=== PATIENT | female | born 1970 | race Caucasian/White ===

== ENCOUNTER 2016-07-16 21:24 | Observation (INO) | payer OTHER ==
[2016-07-16] MEDS ORDERED: methylPREDNISolone SOD SUCCI 125 MG/2 ML VIAL IV STA (22:04)
[2016-07-16] MEDS ORDERED: SODIUM CHLORIDE 0.9% 500 ML IV STA (22:04)
[2016-07-16] MEDS ORDERED: ALBUTEROL NEBULIZED 2.5 MG/3 ML INHALATION STA (22:04)
--- NOTE | 2016-07-16 22:28 | XR ---
EXAMINATION TYPE: XR chest 2V DATE OF EXAM: 07/16/2016 10:22 PM COMPARISON: 02/14/2016 HISTORY: Difficulty in breathing cough COPD asthma. TECHNIQUE: Frontal and lateral views of the chest are obtained. FINDINGS: Interstitial prominence is again noted without significant interval change with chronic lung changes. No definite focal pneumonia is noted. Prominent bronchovascular markings are noted bilaterally. Patricia bronchial cuffing is noted with possible chronic bronchitis changes. There is shift of mediastinum to wards left of chronic nature. There is mild cardiomegaly. The osseous structures are intact. IMPRESSION: 1. No active lung infiltrates. 2. Chronic lung changes. 3. No significant interval change. 4. Possible chronic bronchitis.
--- NOTE | 2016-07-16 22:28 | ED ---
SOB HPI <Seymour Ambriz - Last Filed: 07/17/16 00:04> - General Source: patient, RN notes reviewed Mode of arrival: ambulatory Limitations: no limitations <Raina Salgado - Last Filed: 07/17/16 00:10> - General Chief Complaint: Shortness of Breath Stated Complaint: BRADY Time Seen by Provider: 07/16/16 21:56 - History of Present Illness Initial Comments: 46-year-old female presents to the emergency department with a chief complaint of shortness of breath. Patient has history of COPD. Patient states she did back to back breathing treatments at home with no improvement. Patient states she feels wheezy she feels tight. Patient denies any fever chills with this. Patient states she has had some phlegm production. Patient denies any nausea vomiting or chest discomfort. Patient states that her COPD is acting up and that is ice here today.Patient denies any recent fever, chills, chest pain, back pain, abdominal pain, nausea vomiting, numbness or tingling, dysuria or hematuria, constipation or diarrhea, headaches or visual changes, or any other current symptoms. (Raina Salgado) - Related Data Home Medications Medication Instructions Recorded Confirmed ALPRAZolam [Xanax] 0.25 mg PO TID PRN 03/24/15 07/16/16 Cholecalciferol [Vitamin D3] 5,000 unit PO DAILY 03/24/15 07/16/16 Diltiazem HCl [Diltiazem ER] 120 mg PO DAILY 03/24/15 07/16/16 Fluticasone/Salmeterol [Advair 1 puff INHALATION RT-BID 03/24/15 07/16/16 500-50 Diskus] PARoxetine HCL [Paxil Cr] 25 mg PO BID 03/24/15 07/16/16 buPROPion SR [Wellbutrin SR] 150 mg PO BID 03/24/15 07/16/16 metFORMIN HCL [Glucophage Xr] 500 mg PO AC-[id number] 03/24/15 07/16/16 Albuterol Inhaler [Ventolin Hfa 1 - 2 puff INHALATION RT-Q6H PRN 08/14/15 Inhaler] Hydrocodone/Acetaminophen [[place] 1 tab PO Q6H PRN 02/14/16 07/16/16 10-325] Naproxen [Naprosyn] 500 mg PO Q12HR PRN 02/14/16 07/16/16 Theophylline Anhydrous [Segun-24] 200 mg PO DAILY 02/14/16 07/16/16 Topiramate [Topiramate] 25 mg PO BID-W/MEALS 02/14/16 07/16/16 Acetaminophen [Tylenol] 1,000 mg PO Q4-6H PRN 07/16/16 07/16/16 Albuterol Nebulized [Ventolin 2.5 mg INHALATION RT-TID PRN 07/16/16 07/16/16 Nebulized] Allergies Allergy/AdvReac Type Severity Reaction Status Date / Time Penicillins Allergy Rash/Hives Verified 07/16/16 22:03 pollen extracts Allergy Dyspnea Verified 07/16/16 22:03 shellfish derived [Shellfish] Allergy Anaphylaxis Verified 07/16/16 22:03 Iodinated Contrast Media - AdvReac Rash/Hives Verified 07/16/16 22:03 Oral and Review of Systems ROS Other: All systems not noted in ROS Statement are negative. <Seymour Ambriz - Last Filed: 07/17/16 00:04> ROS Other: All systems not noted in ROS Statement are negative. <Raina Salgado - Last Filed: 07/17/16 00:10> ROS Statement: Those systems with pertinent positive or pertinent negative responses have been documented in the HPI. Past Medical History Past Medical History: Asthma, COPD, Diabetes Mellitus, Eye Disorder, Pneumonia, Sleep Apnea/CPAP/BIPAP Additional Past Medical History / Comment(s): 08/14/15 Pt presented to [facility] ER with cough, congestion, increased SOB and chest tightness. Pt used inhaler with some relief. Pt is being admitted with clinical impression of obstructive chronic bronchitis with exacerbation. Other HX: NIDDM thype II, glaucoma bilaterally, tachycardia, AKIRA with CPAP, bronchitis, has O2 at home which she uses prn at 2L/NC . History of Any Multi-Drug Resistant Organisms: None Reported Past Surgical History: Section, Tubal Ligation Additional Past Surgical History / Comment(s): cyst removal under right breast, x 2. Past Anesthesia/Blood Transfusion Reactions: No Reported Reaction Past Psychological History: Anxiety, Depression Additional Psychological History / Comment(s): Pt resides with her spouse and a 16 and 18 yr old child. She also has a 10 month old grandson that lives with them. She is normally independent. She uses no assistive device. She drives. She has O2 which she uses prn and a nebulizer and glucose monitor at home. Smoking Status: Former smoker Past Alcohol Use History: None Reported Additional Past Alcohol Use History / Comment(s): Pt states she started smoking in 1986 and quit 5 months ago. Past Drug Use History: None Reported - Past Family History Mother History Unknown: Yes Family Medical History: COPD Additional Family Medical History / Comment(s): breast cancer. Mother is alive and 74 yrs old. Father History Unknown: Yes Family Medical History: COPD, Myocardial Infarction (MS), Vascular Disorder Additional Family Medical History / Comment(s): Father at age 64yrs. <Raina Salgado - Last Filed: 07/17/16 00:10> General Exam <Seymour Ambriz - Last Filed: 07/17/16 00:04> Limitations: no limitations <Raina Salgado - Last Filed: 07/17/16 00:10> - General Exam Comments Initial Comments: General: The patient is awake and alert, in no distress, and does not appear acutely ill. Eye: Pupils are equal, round and reactive to light, extra-ocular movements are intact; there is normal conjunctiva bilaterally. No signs of icterus. Ears, nose, mouth and throat: There are moist mucous membranes. Neck: The neck is supple, there is no tenderness. Cardiovascular: There is a regular rate and rhythm. No murmur, rub or gallop is appreciated. Respiratory: Lungs are clear to auscultation, respirations are non-labored, breath sounds are equal. Diminished throughout, wheezing throughout, stridor, rales, or rhonchi. Gastrointestinal: Soft, non-distended, non-tender abdomen without masses or organomegaly noted. There is no rebound or guarding present. No CVA tenderness. Bowel sounds are unremarkable. Back: There is no tenderness to palpation in the midline. There is no obvious deformity. No rashes noted. Musculoskeletal: Normal ROM, no tenderness, There is no pedal edema. There is no calf tenderness or swelling. Sensation intact. Pulses equal bilaterally 2+. Neurological: CN II-XII intact, There are no obvious motor or sensory deficits. Coordination appears grossly intact. Speech is normal. Skin: Skin is warm and dry and no rashes or lesions are noted. Psychiatric: Cooperative, appropriate mood & affect, normal judgment. (Raina Salgado) Medical Decision Making - Lab Data Result diagrams: 07/16/16 22:40 07/16/16 22:40 <Seymour Ambriz - Last Filed: 07/17/16 00:04> - Lab Data Result diagrams: 07/16/16 22:40 07/16/16 22:40 - Radiology Data Radiology results: report reviewed, image reviewed <Raina Salgado - Last Filed: 07/17/16 00:10> - Medical Decision Making Patient reevaluated by myself, Dr. Ambriz. Patient has continued wheezing. Case was discussed with Dr. henson, who will admit for Dr. steele. Patient has previously seen Dr. Olmstead (Seymour Ambriz) 46-year-old female presents emergency Department chief complaint of COPD exacerbation. Even after continuous updraft the patient does continue to have wheezing on exam and continues to be 93 on room air. At this time the patient states she is not feeling any better. We will admit the patient for COPD exacerbation we will start antibiotics and steroids for the patient. We will also consult Dr. Wallace. Patient and agree with the plan all questions were answered. The patient. (Raina Salgado) - Lab Data Lab Results 07/16/16 07/16/16 07/16/16 Range/Units 22:40 22:40 22:40 WBC 16.4 H (3.8-10.6) k/uL RBC 4.63 (3.80-5.40) m/uL Hgb 14.0 (11.4-16.0) gm/dL Hct 42.0 (34.0-46.0) % MCV 90.8 (80.0-100.0) fL MCH 30.2 (25.0-35.0) pg MCHC 33.3 (31.0-37.0) g/dL RDW 13.7 (11.5-15.5) % Plt Count 308 (150-450) k/uL Neutrophils % (Manual) 70.0 % Lymphocytes % (Manual) 21.5 % Monocytes % (Manual) 7.0 % Myelocytes % 1.5 % Neutrophils # (Manual) 11.5 H (1.3-7.7) k/uL Lymphocytes # (Manual) 3.5 (1.0-4.8) k/uL Monocytes # (Manual) 1.1 H (0-1.0) k/uL Nucleated RBCs 0 (0-0) /100 WBC Manual Slide Review Performed PT (9.0-12.0) sec INR (<1.1) APTT (22.0-30.0) sec D-Dimer (<0.60) mg/L FEU Sodium 141 (137-145) mmol/L Potassium 3.8 (3.5-5.1) mmol/L Chloride 105 (98-107) mmol/L Carbon Dioxide 23 (22-30) mmol/L Anion Gap 13 mmol/L BUN 11 (7-17) mg/dL Creatinine 0.79 (0.52-1.04) mg/dL Est GFR (MDRD) Af Amer >60 (>60 ml/min/1.73 sqM) Est GFR (MDRD) Non-Af >60 (>60 ml/min/1.73 sqM) Glucose 87 (74-99) mg/dL Calcium 9.9 (8.4-10.2) mg/dL Total Bilirubin 0.5 (0.2-1.3) mg/dL AST 23 (14-36) U/L ALT 52 (9-52) U/L Alkaline Phosphatase 96 (38-126) U/L Total Creatine Kinase 36 (30-135) U/L CK-MB (CK-2) 0.5 (0.0-2.4) ng/mL CK-MB (CK-2) Rel Index 1.4 Troponin I <0.012 (0.000-0.034) ng/mL Total Protein 7.1 (6.3-8.2) g/dL Albumin 4.0 (3.5-5.0) g/dL 07/16/16 Range/Units 22:40 WBC (3.8-10.6) k/uL RBC (3.80-5.40) m/uL Hgb (11.4-16.0) gm/dL Hct (34.0-46.0) % MCV (80.0-100.0) fL MCH (25.0-35.0) pg MCHC (31.0-37.0) g/dL RDW (11.5-15.5) % Plt Count (150-450) k/uL Neutrophils % (Manual) % Lymphocytes % (Manual) % Monocytes % (Manual) % Myelocytes % % Neutrophils # (Manual) (1.3-7.7) k/uL Lymphocytes # (Manual) (1.0-4.8) k/uL Monocytes # (Manual) (0-1.0) k/uL Nucleated RBCs (0-0) /100 WBC Manual Slide Review PT 9.6 (9.0-12.0) sec INR 0.9 (<1.1) APTT 23.0 (22.0-30.0) sec D-Dimer 0.25 (<0.60) mg/L FEU Sodium (137-145) mmol/L Potassium (3.5-5.1) mmol/L Chloride (98-107) mmol/L Carbon Dioxide (22-30) mmol/L Anion Gap mmol/L BUN (7-17) mg/dL Creatinine (0.52-1.04) mg/dL Est GFR (MDRD) Af Amer (>60 ml/min/1.73 sqM) Est GFR (MDRD) Non-Af (>60 ml/min/1.73 sqM) Glucose (74-99) mg/dL Calcium (8.4-10.2) mg/dL Total Bilirubin (0.2-1.3) mg/dL AST (14-36) U/L ALT (9-52) U/L Alkaline Phosphatase (38-126) U/L Total Creatine Kinase (30-135) U/L CK-MB (CK-2) (0.0-2.4) ng/mL CK-MB (CK-2) Rel Index Troponin I (0.000-0.034) ng/mL Total Protein (6.3-8.2) g/dL Albumin (3.5-5.0) g/dL Disposition <Seymour Ambriz - Last Filed: 07/17/16 00:04> Time of Disposition: 00:10 Decision Date: 07/17/16 Decision Time: 00:10 <Raina Salgado - Last Filed: 07/17/16 00:10> Clinical Impression: Acute exacerbation of chronic obstructive airways disease Disposition: ADMITTED IP TO THIS HOSP Condition: Stable
[2016-07-16 23:00] LABS: CH 30.6; CHCM 33.9; HDW 2.85; MCH 30.2 pg (25.0-35.0); MCHC 33.3 g/dL (31.0-37.0); MCV 90.8 fL (80.0-100.0); Mean Platelet Volume 7.9; RBC 4.63 m/uL (3.80-5.40); RDW 13.7 % (11.5-15.5); WBC 16.4 k/uL (3.8-10.6); WBC (Perox) 16.38
[2016-07-16 23:09] LABS: ALT 52 U/L (9-52); AST 23 U/L (14-36); Alkaline Phosphatase 96 U/L (38-126); Anion Gap 13 mmol/L; Blood Urea Nitrogen 11 mg/dL (7-17); Calcium 9.9 mg/dL (8.4-10.2); Carbon Dioxide 23 mmol/L (22-30); Chloride 105 mmol/L (98-107); Glucose 87 mg/dL (74-99); Non-African American GFR(MDRD) >60 (>60 ml/min/1.73 sqM); Potassium 3.8 mmol/L (3.5-5.1); Sodium 141 mmol/L (137-145); Total Bilirubin 0.5 mg/dL (0.2-1.3); Total Protein 7.1 g/dL (6.3-8.2)
[2016-07-16 23:13] LABS: INR 0.9 (<1.1); Prothrombin Time 9.6 sec (9.0-12.0)
[2016-07-16 23:26] LABS: Creatine Kinase 36 U/L (30-135)
[2016-07-16 23:32] LABS: Add Differential Manual Differential
[2016-07-16 23:35] LABS: Manual Review Performed; Myelocytes % 1.5 %; Nucleated Red Blood Cells 0 /100 WBC (0-0); Total Cells Counted 200
[2016-07-16 23:39] LABS: Creatine Kinase MB 0.5 ng/mL (0.0-2.4); Troponin I <0.012 ng/mL (0.000-0.034)
[2016-07-17] MEDS: methylPREDNISolone SOD SUCCI 125 MG/2 ML VIAL IV SCH ×4 (05:33→23:05)
[2016-07-17 06:51] LABS: Glucose,Whole Blood 223 mg/dL (75-99)
[2016-07-17] MEDS: IPRATROPIUM-ALBUTEROL 3 ML NEB INHALATION PRN (08:42)
[2016-07-17] MEDS ORDERED: HYDROcodone/APAP 10-325MG 1 EACH TAB PO PRN (09:09)
[2016-07-17] MEDS ORDERED: NAPROXEN 250 MG TAB PO PRN (09:09)
[2016-07-17] MEDS ORDERED: ALPRAZolam 0.25 MG TAB PO PRN (09:09)
--- NOTE | 2016-07-17 10:31 | HP ---
DATE OF ADMISSION: 07/17/2016 PRESENTING COMPLAINT: Short of breath, cough. HISTORY OF PRESENTING COMPLAINT: This is a 46-year-old patient of Dr. Acosta with extensive medical history. Patient's chronic stable medical conditions include Type 2 diabetes mellitus, sleep apnea, uses home oxygen p.r.n. The patient stopped smoking and year and a half ago. The patient presents with one week of progressive cough, phlegm yellow, wheezing short of breath, fever, really stuffy in the nose. Wheezing and feeling really tired. REVIEW OF SYSTEMS: CONSTITUTIONAL: Weak, tired. HEENT: Nasal stuffiness. RESPIRATORY: As above. CARDIOVASCULAR: None. GASTROINTESTINAL: None. GENITOURINARY: None. MUSCULOSKELETAL: None. Dermatological: None. HEMATOLOGICAL: None. LYMPHATIC: None. PSYCHIATRY: Anxiety. NEUROLOGICAL: None. PAST MEDICAL HISTORY: Past medical history of COPD, diabetes mellitus type 2, anxiety, and depression, obstructive sleep apnea. PAST SURGICAL HISTORY: 1. . 2. Tubal ligation. 3. Cyst removed from under the right breast. SOCIAL HISTORY: . She uses oxygen on p.r.n. basis. The patient smoked about 30 years 1/2 pack a day and quit close to a year ago. Family history of breast cancer and COPD. Home medications: 1. Glucophage XL 1000 mg p.o. b.i.d. 2. Segun-24 100 mg b.i.d. 3. Ventolin 2.5 t.i.d. p.r.n. 4. Tylenol. 5. Wellbutrin SR 100 mg p.o. b.i.d. 6. Topamax 25 mg p.o. b.i.d. 7. Paxil 25 mg b.i.d. 8. Naproxen 500 mg p.o. q12. 9. [place] 10 1 tablets q.6 p.r.n. 10. Advair 5/500, 1 puff b.i.d. 11. Cardizem ER 150 mg daily. 12. Vitamin D3, 5000 units daily. 13. Ventolin HFA 1 to 2 puffs q.6 p.r.n. 14. Xanax 0.5 t.i.d. p.r.n. ALLERGY TO PENICILLIN, POLLEN, SHELLFISH, IV CONTRAST DYE. On examination, vital signs on presentation: Temperature 98.5, pulse 109, respiration 22, blood pressure 114/57, pulse ox 94% on room air. GENERAL APPEARANCE: Well built, BMI of 40, sitting up, short of breath. EYES: Pupils equal. Conjunctivae normal. HEENT: External appearance of nose and ears normal. Oral cavity normal. NECK: JVD unable to assess. Mass not palpable. RESPIRATORY: Effort increased. LUNGS: Diminished breath sounds. Prolonged expiration and some expiratory crackles. CARDIOVASCULAR: First and second sounds normal. No edema. ABDOMEN: Distended, soft. Liver and spleen not palpable. LYMPHATIC: No lymph node palpable in the neck and axilla. PSYCHIATRY: Alert and oriented x3. Mood and affect anxious appearing. NEUROLOGICAL: Pupils equal. Cranial nerves grossly intact. Power and sensation grossly intact. INVESTIGATIONS: White count 16.4, hemoglobin 14, potassium 3.8, chest x-ray shows mediastinal slightly shift to the left. ( ) could be infiltrate right base. ASSESSMENT: 1. Pneumonia, possibly right lower lobe community acquired. 2. Acute chronic obstructive pulmonary disease exacerbation in an ex-smoker from pneumonia. 3. Morbid obesity, body mass index of 40. 4. Anxiety, depression, not otherwise specified. 5. Chronic sleep apnea. The patient does use a CPAP machine. PLAN: Home medications are resumed. Patient was put on Solu-Medrol, nebulized bronchodilator ( ) we will also humidify the oxygen. We will start the patient on ceftriaxone. Care was discussed with the patient.
[2016-07-17] MEDS: DILTIAZEM CD 120 MG CAP.ER.24H PO SCH (10:40)
[2016-07-17] MEDS: metFORMIN 500 MG TAB PO SCH ×2 (10:40→17:39)
[2016-07-17] MEDS: ENOXAPARIN 40 MG/0.4 ML SYRINGE SQ SCH (10:40)
[2016-07-17] MEDS: TOPIRAMATE 25 MG TAB PO SCH ×2 (10:41→17:39)
[2016-07-17] MEDS: buPROPion SR 150 MG TABLET.ER PO SCH ×2 (10:41→21:23)
[2016-07-17] MEDS: PARoxetine 20 MG TAB PO SCH ×2 (10:41→21:23)
[2016-07-17 11:17] LABS: Glucose,Whole Blood 273 mg/dL (75-99)
[2016-07-17] MEDS: LEVOFLOXACIN 500 MG TAB PO SCH (11:19)
[2016-07-17] MEDS: LORATADINE-PSEUDOEPH 5-120 MG 1 EACH TAB.ER.12H PO SCH ×2 (11:19→22:18)
[2016-07-17] MEDS: IPRATROPIUM-ALBUTEROL 3 ML NEB INHALATION SCH ×3 (12:47→19:51)
--- NOTE | 2016-07-17 13:28 | P.CNPUL ---
History of Present Illness Consult date: 07/17/16 Reason for consult: dyspnea, cough, asthma, COPD, hypoxemia Chief complaint: Shortness of breath History of present illness: This is a 46-year-old female well-known to me. I been taking care of her for a number of years with asthma. 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 For that reason the left lung looks smaller than normal on chest x-ray. Anyway for the last couple days or so prior to admission she comes in with complaints of shortness of breath. She also has coughing wheezing and some phlegm production. No fever no chills. No nausea vomiting or diarrhea. She's admitted probably about once a year on the average. Feeling a bit better today. Ready feeling less short of breath. Review of Systems A 12 point review of system is positive for shortness of breath chest tightness wheezing cough and minimal phlegm production. No fever no chills. No nausea vomiting or diarrhea. No chest pain. The rest of the 12 point review of system is unremarkable. Past Medical History Past Medical History: Asthma, COPD, Diabetes Mellitus, Eye Disorder, Pneumonia, Sleep Apnea/CPAP/BIPAP Additional Past Medical History / Comment(s): 08/14/15 Pt presented to [facility] ER with cough, congestion, increased SOB and chest tightness. Pt used inhaler with some relief. Pt is being admitted with clinical impression of obstructive chronic bronchitis with exacerbation. Other HX: NIDDM thype II, glaucoma bilaterally, tachycardia, AKIRA with CPAP, bronchitis, has O2 at home which she uses prn at 2L/NC . History of Any Multi-Drug Resistant Organisms: None Reported Past Surgical History: Section, Tubal Ligation Additional Past Surgical History / Comment(s): cyst removal under right breast, x 2. Past Anesthesia/Blood Transfusion Reactions: No Reported Reaction Past Psychological History: Anxiety, Depression Additional Psychological History / Comment(s): Pt resides with her spouse and a 16 and 18 yr old child. She also has a 10 month old grandson that lives with them. She is normally independent. She uses no assistive device. She drives. She has O2 which she uses prn and a nebulizer and glucose monitor at home. Smoking Status: Former smoker Past Alcohol Use History: None Reported Additional Past Alcohol Use History / Comment(s): Pt states she started smoking in 1986 and quit 5 months ago. Past Drug Use History: None Reported - Past Family History Mother History Unknown: Yes Family Medical History: COPD Additional Family Medical History / Comment(s): breast cancer. Mother is alive and 74 yrs old. Father History Unknown: Yes Family Medical History: COPD, Myocardial Infarction (MS), Vascular Disorder Additional Family Medical History / Comment(s): Father at age 64yrs. Medications and Allergies Home Medications Medication Instructions Recorded Confirmed Type ALPRAZolam [Xanax] 0.25 mg PO TID PRN 03/24/15 07/16/16 History Cholecalciferol [Vitamin D3] 5,000 unit PO DAILY 03/24/15 07/16/16 History Diltiazem HCl [Diltiazem ER] 120 mg PO DAILY 03/24/15 07/16/16 History Fluticasone/Salmeterol [Advair 1 puff INHALATION RT-BID 03/24/15 07/16/16 History 500-50 Diskus] PARoxetine HCL [Paxil Cr] 25 mg PO BID 03/24/15 07/16/16 History buPROPion SR [Wellbutrin SR] 150 mg PO BID 03/24/15 07/16/16 History metFORMIN HCL [Glucophage Xr] 1,000 mg PO BID-W/MEALS 03/24/15 07/17/16 History Albuterol Inhaler [Ventolin Hfa 1 - 2 puff INHALATION RT-Q6H PRN 08/14/15 History Inhaler] Hydrocodone/Acetaminophen [[place] 1 tab PO Q6H PRN 02/14/16 07/16/16 History 10-325] Naproxen [Naprosyn] 500 mg PO Q12HR PRN 02/14/16 07/16/16 History Theophylline Anhydrous [Segun-24] 100 mg PO BID 02/14/16 07/17/16 History Topiramate [Topiramate] 25 mg PO BID-W/MEALS 02/14/16 07/16/16 History Acetaminophen [Tylenol] 1,000 mg PO Q4-6H PRN 07/16/16 07/16/16 History Albuterol Nebulized [Ventolin 2.5 mg INHALATION RT-TID PRN 07/16/16 07/16/16 History Nebulized] Allergies Allergy/AdvReac Type Severity Reaction Status Date / Time Penicillins Allergy Rash/Hives Verified 07/16/16 22:03 pollen extracts Allergy Dyspnea Verified 07/16/16 22:03 shellfish derived [Shellfish] Allergy Anaphylaxis Verified 07/16/16 22:03 Iodinated Contrast Media - AdvReac Rash/Hives Verified 07/16/16 22:03 Oral and Physical Exam Osteopathic Statement: *. No significant issues noted on an osteopathic structural exam other than those noted in the History and Physical/Consult. Vitals: Vital Signs Temp Pulse Pulse Resp BP BP Pulse Ox 07/17/16 13:03 92 07/17/16 12:50 92 07/17/16 08:52 104 H 07/17/16 08:42 100 07/17/16 08:00 16 07/17/16 07:00 97.6 F 88 15 105/69 95 07/17/16 00:45 18 07/17/16 00:41 85 24 134/68 93 L 07/17/16 00:37 97.1 F L 92 18 136/64 90 L Intake and Output 07/16/16 07/17/16 07/17/16 22:59 06:59 14:59 Intake Total 350 180 Balance 350 180 Intake: Oral 350 180 Other: Voiding Method Toilet Toilet # Voids 1 No acute distress, sitting up in bed. No audible wheezing. Oriented 3. HEENT examination is grossly unremarkable. Mucous membranes are moist. No oral lesions. Neck supple. Full range of motion. No adenopathy. Cardio vascular examination reveals regular rhythm rate. S1 and S2 normal. No S3-S4. No murmur. Lungs reveal some expiratory wheezes and rhonchi. Breath sounds are diminished. This prolongation on forced maneuver. Abdomen soft bowel sounds are heard. Next. Extremities are intact. Results - Laboratory Findings CBC and BMP: 07/16/16 22:40 07/16/16 22:40 PT/INR, D-dimer PT 9.6 sec (9.0-12.0) 07/16/16 22:40 INR 0.9 (<1.1) 07/16/16 22:40 D-Dimer 0.25 mg/L FEU (<0.60) 07/16/16 22:40 Abnormal lab findings: Abnormal Labs 07/17/16 07/17/16 06:47 11:15 POC Glucose (mg/dL) 223 H 273 H - Diagnostic Findings Chest x-ray: image reviewed (Chest x-ray labs and medications are all reviewed.) Assessment and Plan (1) Sleep apnea syndrome Status: Acute (2) Absent left pulmonary artery, congenital Status: Acute (3) Acute exacerbation of chronic obstructive airways disease Status: Acute (4) Diabetes Status: Acute Plan: Plan dated 07/17/2016 The patient will be placed on DuoNeb's 4 times a day and when necessary. She should also be on performance and Pulmicort 1 mg twice a day. She should receive Ron Solu-Medrol 60 mg every 6. Her chest x-ray did not show any acute infiltrates that she can get by with oral antibiotics. Additional recommendations suggestions are forthcoming. Labs x-rays and medications are all reviewed. Time with Patient: Greater than 30
[2016-07-17] MEDS ORDERED: BENZONATATE 100 MG CAP PO PRN (13:30)
[2016-07-17 17:06] LABS: Glucose,Whole Blood 111 mg/dL (75-99)
[2016-07-17] MEDS: FORMOTEROL FUMARATE 20 MCG/2 ML NEBU INHALATION SCH (19:51)
[2016-07-17] MEDS: BUDESONIDE 1 MG/2 ML NEBU INHALATION SCH (19:51)
[2016-07-17] MEDS ORDERED: SYMBICORT 160-4.5 MCG INHALER INHALATION SCH (20:00)
[2016-07-17 21:29] LABS: Glucose,Whole Blood 142 mg/dL (75-99)
[2016-07-17] MEDS: INSULIN LISPRO (humaLOG) 300 UNIT/3 ML VIAL SQ SCH (22:20)
[2016-07-17 22:35] LABS: Hemoglobin A1C 5.9 % (4.2-6.1)
[2016-07-18 03:50] LABS: Glucose,Whole Blood 160 mg/dL (75-99)
[2016-07-18] MEDS: methylPREDNISolone SOD SUCCI 125 MG/2 ML VIAL IV SCH ×3 (05:13→18:06)
[2016-07-18 07:09] LABS: Glucose,Whole Blood 156 mg/dL (75-99)
[2016-07-18] MEDS: metFORMIN 500 MG TAB PO SCH ×2 (07:31→18:06)
[2016-07-18] MEDS: DILTIAZEM CD 120 MG CAP.ER.24H PO SCH (07:32)
[2016-07-18] MEDS: TOPIRAMATE 25 MG TAB PO SCH ×2 (07:32→18:05)
[2016-07-18] MEDS: PARoxetine 20 MG TAB PO SCH ×2 (07:32→21:07)
[2016-07-18] MEDS: ENOXAPARIN 40 MG/0.4 ML SYRINGE SQ SCH (07:32)
[2016-07-18] MEDS: LORATADINE-PSEUDOEPH 5-120 MG 1 EACH TAB.ER.12H PO SCH ×2 (07:32→21:07)
[2016-07-18] MEDS: LEVOFLOXACIN 500 MG TAB PO SCH (07:32)
[2016-07-18] MEDS: buPROPion SR 150 MG TABLET.ER PO SCH ×2 (07:32→21:07)
[2016-07-18] MEDS: IPRATROPIUM-ALBUTEROL 3 ML NEB INHALATION PRN (08:05)
[2016-07-18] MEDS: BUDESONIDE 1 MG/2 ML NEBU INHALATION SCH ×2 (08:05→19:26)
[2016-07-18] MEDS: FORMOTEROL FUMARATE 20 MCG/2 ML NEBU INHALATION SCH ×2 (08:05→19:26)
[2016-07-18] MEDS: IPRATROPIUM-ALBUTEROL 3 ML NEB INHALATION SCH ×4 (08:48→19:33)
[2016-07-18] MEDS: INSULIN LISPRO (humaLOG) 300 UNIT/3 ML VIAL SQ SCH ×4 (08:57→21:13)
[2016-07-18 11:35] LABS: Glucose,Whole Blood 137 mg/dL (75-99)
--- NOTE | 2016-07-18 12:41 | P.PN ---
Subjective Progress note dated 07/18/2016 46-year-old female well-known to me. She has a history of chronic bronchial asthma. 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 Still wheezy. So tight. So short of breath. Coughing a bit. Not producing much phlegm. Probably will not be ready for discharge until Wednesday at the earliest but more likely Wednesday. Objective - Vital Signs Vital signs: Vital Signs Temp 98.6 F 07/18/16 07:00 Pulse 96 07/18/16 12:11 Resp 15 07/18/16 08:00 BP 115/70 07/18/16 07:00 Pulse Ox 93 L 07/18/16 08:40 Intake & Output 07/17/16 07/18/16 07/18/16 18:59 06:59 18:59 Intake Total 430 180 Balance 430 180 Intake: Oral 430 180 Other: Voiding Method Toilet Toilet Toilet # Voids 1 - Exam No acute distress, oriented 3. Some mild audible wheezing. HEENT examination is grossly unremarkable. Mucous membranes are moist. No oral lesions. Neck supple. Full range of motion. No adenopathy. Cardiovascular examination reveals regular rhythm rate. S1-S2 normal. Lungs reveal diffuse inspiratory and expiratory rhonchi and wheezes. Breath sounds diminished. There is prolongation. Abdomen soft bowel sounds are heard. Extremities are intact. - Labs CBC & Chem 7: 07/16/16 22:40 07/16/16 22:40 Labs: Abnormal Lab Results - Last 24 Hours (Table) 07/17/16 07/17/16 07/18/16 Range/Units 17:04 21:27 03:37 POC Glucose (mg/dL) 111 H 142 H 160 H (75-99) mg/dL 07/18/16 07/18/16 Range/Units 07:04 11:30 POC Glucose (mg/dL) 156 H 137 H (75-99) mg/dL Assessment and Plan (1) Sleep apnea syndrome Status: Acute (2) Absent left pulmonary artery, congenital Status: Acute (3) Acute exacerbation of chronic obstructive airways disease Status: Acute (4) Diabetes Status: Acute Plan: Plan dated 07/17/2016 The patient will be placed on DuoNeb's 4 times a day and when necessary. She should also be on performance and Pulmicort 1 mg twice a day. She should receive Ron Solu-Medrol 60 mg every 6. Her chest x-ray did not show any acute infiltrates that she can get by with oral antibiotics. Additional recommendations suggestions are forthcoming. Labs x-rays and medications are all reviewed. Plan dated 07/18/2016 The patient should stay on the DuoNeb's 4 times a day and when necessary. She should also stay on the long-acting beta agonist and inhaled corticosteroid twice a day. She should remain on her Solu-Medrol 60 mg every 6 as well as her antibiotics. Possible discharge tomorrow but more likely on Wednesday. Time with Patient: Less than 30
[2016-07-18 17:06] LABS: Glucose,Whole Blood 131 mg/dL (75-99)
[2016-07-18 21:28] LABS: Glucose,Whole Blood 198 mg/dL (75-99)
[2016-07-19] MEDS: methylPREDNISolone SOD SUCCI 125 MG/2 ML VIAL IV SCH ×4 (00:21→17:38)
[2016-07-19 07:27] LABS: Glucose,Whole Blood 161 mg/dL (75-99)
[2016-07-19] MEDS: BUDESONIDE 1 MG/2 ML NEBU INHALATION SCH ×2 (07:30→19:40)
[2016-07-19] MEDS: IPRATROPIUM-ALBUTEROL 3 ML NEB INHALATION SCH ×4 (07:30→19:39)
[2016-07-19] MEDS: FORMOTEROL FUMARATE 20 MCG/2 ML NEBU INHALATION SCH ×2 (07:30→19:37)
[2016-07-19 07:46] LABS: Anion Gap 17 mmol/L; Blood Urea Nitrogen 18 mg/dL (7-17); Calcium 9.8 mg/dL (8.4-10.2); Carbon Dioxide 23 mmol/L (22-30); Chloride 105 mmol/L (98-107); Glucose 164 mg/dL (74-99); Non-African American GFR(MDRD) >60 (>60 ml/min/1.73 sqM); Sodium 145 mmol/L (137-145)
[2016-07-19] MEDS: TOPIRAMATE 25 MG TAB PO SCH ×2 (07:46→17:38)
[2016-07-19] MEDS: buPROPion SR 150 MG TABLET.ER PO SCH ×2 (07:46→20:22)
[2016-07-19] MEDS: LORATADINE-PSEUDOEPH 5-120 MG 1 EACH TAB.ER.12H PO SCH ×2 (07:46→20:22)
[2016-07-19] MEDS: metFORMIN 500 MG TAB PO SCH ×2 (07:46→17:38)
[2016-07-19] MEDS: DILTIAZEM CD 120 MG CAP.ER.24H PO SCH (07:46)
[2016-07-19] MEDS: PARoxetine 20 MG TAB PO SCH ×2 (07:46→20:22)
[2016-07-19] MEDS: ENOXAPARIN 40 MG/0.4 ML SYRINGE SQ SCH (07:46)
[2016-07-19] MEDS: INSULIN LISPRO (humaLOG) 300 UNIT/3 ML VIAL SQ SCH ×4 (07:47→20:36)
[2016-07-19] MEDS: LEVOFLOXACIN 500 MG TAB PO SCH (07:47)
--- NOTE | 2016-07-19 07:47 | PN ---
DATE OF SERVICE: 07/18/2016 PRESENTING COMPLAINT: Shortness of breath, wheezing. INTERVAL HISTORY: This patient presented with COPD exacerbation. Still wheezing and cough. Tired appearing. Did tolerate some diet. Review of systems done for constitutional, cardiovascular, GI, pulmonary; relevant findings as above. Current medications are reviewed and include nebulized bronchodilators and IV steroids. On examination, temperature 98.4, pulse 79, respiratory rate 16, blood pressure 110/54, pulse ox 95% on 2 liters. GENERAL APPEARANCE: Sitting up, short of breath. EYES: Pupils equal. Conjunctivae normal. NECK: JVD not raised. Mass not palpable. Respiratory effort increased. Lungs diminished breath sounds. Prolonged expiration and wheezing. CARDIOVASCULAR: First and second sounds normal. No edema. ABDOMEN: Soft, nontender. Liver and spleen not palpable. Psychiatric alert and oriented x3. Mood and affect normal. INVESTIGATIONS: Accu-Cheks are noted. ASSESSMENT: 1. Acute to severe chronic obstructive pulmonary disease exacerbation in an ex-smoker, slow to respond. 2. Pneumonia right lower lobe, community acquired suspect gram-negative organism. 3. Moderate obesity, body mass index of 40. 4. Anxiety, depression, not otherwise specified. 5. Sleep apnea, does use CPAP machine. PLAN: Continue current medication and treatment plan. Will follow.
[2016-07-19 12:14] LABS: Glucose,Whole Blood 188 mg/dL (75-99)
--- NOTE | 2016-07-19 13:38 | P.PN ---
Subjective Progress note dated 07/18/2016 46-year-old female well-known to me. She has a history of chronic bronchial asthma. 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 Still wheezy. So tight. So short of breath. Coughing a bit. Not producing much phlegm. Probably will not be ready for discharge until Wednesday at the earliest but more likely Wednesday. Progress note dated 07/19/2016 46-year-old female with history of asthma. She also has hypoplastic left lung syndrome as well as absence of the left pulmonary artery. She still very wheezy and tight. Still short of breath. Lots of chest congestion. I suspect she probably will be ready due for discharge until Wednesday or Wednesday. I was hoping to get her out of the hospital sooner but she's not much improved. She is on all the usual medications. The patient is doing better but not anywhere working usually she needs about 5-7 days in the hospital when she has a flareup to this degree. Objective - Vital Signs Vital signs: Vital Signs Temp 97.8 F 07/19/16 07:00 Pulse 96 07/19/16 11:14 Resp 15 07/19/16 08:00 BP 120/72 07/19/16 07:00 Pulse Ox 95 07/19/16 07:36 Intake & Output 07/18/16 07/19/16 07/19/16 18:59 06:59 18:59 Intake Total 740 Balance 740 Intake: Oral 740 Other: Voiding Method Toilet Toilet # Voids 3 2 - Exam No acute distress, oriented 3. Some mild audible wheezing. HEENT examination is grossly unremarkable. Mucous membranes are moist. No oral lesions. Neck supple. Full range of motion. No adenopathy. Cardiovascular examination reveals regular rhythm rate. S1-S2 normal. Lungs reveal diffuse inspiratory and expiratory rhonchi and wheezes. Breath sounds diminished. There is prolongation. Abdomen soft bowel sounds are heard. Extremities are intact. - Labs CBC & Chem 7: 07/16/16 22:40 07/19/16 06:58 Labs: Abnormal Lab Results - Last 24 Hours (Table) 07/18/16 07/18/16 07/19/16 Range/Units 16:44 21:09 06:46 BUN (7-17) mg/dL Glucose (74-99) mg/dL POC Glucose (mg/dL) 131 H 198 H 161 H (75-99) mg/dL 07/19/16 07/19/16 Range/Units 06:58 11:53 BUN 18 H (7-17) mg/dL Glucose 164 H (74-99) mg/dL POC Glucose (mg/dL) 188 H (75-99) mg/dL Assessment and Plan (1) Sleep apnea syndrome Status: Acute (2) Absent left pulmonary artery, congenital Status: Acute (3) Acute exacerbation of chronic obstructive airways disease Status: Acute (4) Diabetes Status: Acute Plan: Plan dated 07/17/2016 The patient will be placed on DuoNeb's 4 times a day and when necessary. She should also be on performance and Pulmicort 1 mg twice a day. She should receive Ron Solu-Medrol 60 mg every 6. Her chest x-ray did not show any acute infiltrates that she can get by with oral antibiotics. Additional recommendations suggestions are forthcoming. Labs x-rays and medications are all reviewed. Plan dated 07/18/2016 The patient should stay on the DuoNeb's 4 times a day and when necessary. She should also stay on the long-acting beta agonist and inhaled corticosteroid twice a day. She should remain on her Solu-Medrol 60 mg every 6 as well as her antibiotics. Possible discharge tomorrow but more likely on Wednesday. Plan dated 07/19/2016 The patient's currently on DuoNeb 4 times a day and when necessary. Also on Pulmicort 1 mg and performance twice a day. Still receiving Solu-Medrol. Still on an antibiotic. We'll continue to follow. Prognosis is guarded. Probable discharge in 24-48 hours or so. Time with Patient: Less than 30
[2016-07-19 16:57] LABS: Glucose,Whole Blood 143 mg/dL (75-99)
[2016-07-19 20:47] LABS: Glucose,Whole Blood 242 mg/dL (75-99)
[2016-07-19] MEDS: IPRATROPIUM 0.5 MG/2.5 ML NEBU INHALATION SCH ×2 (23:33→23:37)
[2016-07-19] MEDS: ALBUTEROL NEB (CONC) 2.5 MG/0.5 ML INHALATION SCH (23:39)
[2016-07-20] MEDS: methylPREDNISolone SOD SUCCI 125 MG/2 ML VIAL IV SCH ×4 (01:36→18:37)
[2016-07-20] MEDS: ALBUTEROL NEB (CONC) 2.5 MG/0.5 ML INHALATION SCH ×5 (03:54→20:10)
[2016-07-20] MEDS: IPRATROPIUM 0.5 MG/2.5 ML NEBU INHALATION SCH ×5 (03:54→20:10)
[2016-07-20 07:15] LABS: Glucose,Whole Blood 170 mg/dL (75-99)
[2016-07-20] MEDS: INSULIN LISPRO (humaLOG) 300 UNIT/3 ML VIAL SQ SCH ×4 (07:56→20:42)
[2016-07-20] MEDS: metFORMIN 500 MG TAB PO SCH ×2 (07:58→18:33)
[2016-07-20] MEDS: buPROPion SR 150 MG TABLET.ER PO SCH ×2 (07:59→20:34)
[2016-07-20] MEDS: TOPIRAMATE 25 MG TAB PO SCH ×2 (07:59→18:33)
[2016-07-20] MEDS: ENOXAPARIN 40 MG/0.4 ML SYRINGE SQ SCH (08:00)
[2016-07-20] MEDS: LEVOFLOXACIN 500 MG TAB PO SCH (08:00)
[2016-07-20] MEDS: DILTIAZEM CD 120 MG CAP.ER.24H PO SCH (08:00)
[2016-07-20] MEDS: LORATADINE-PSEUDOEPH 5-120 MG 1 EACH TAB.ER.12H PO SCH ×2 (08:00→20:34)
[2016-07-20] MEDS: PARoxetine 20 MG TAB PO SCH ×2 (08:01→20:34)
[2016-07-20] MEDS: FORMOTEROL FUMARATE 20 MCG/2 ML NEBU INHALATION SCH ×2 (08:36→20:10)
[2016-07-20] MEDS: BUDESONIDE 1 MG/2 ML NEBU INHALATION SCH ×2 (08:36→20:10)
[2016-07-20] MEDS ORDERED: LACTULOSE 20 GM/30 ML CUP PO ONE (11:11)
--- NOTE | 2016-07-20 11:13 | PN ---
DATE OF SERVICE: 07/19/2016 PRESENTING COMPLAINT: Short of breath, wheezing. INTERVAL HISTORY: This patient presented with severe COPD exacerbation. Still wheezing. Some sputum is coming up. Tolerating a diet. Sitting in bed. Review of systems done for constitutional, cardiovascular, GI, pulmonary; relevant findings as above. Current medications are reviewed. On examination, temperature 98, pulse 75, respiratory rate 16, blood pressure 140/76, pulse ox 96%. GENERAL APPEARANCE: Sitting up, tired -appearing. EYES: Pupils equal. Conjunctivae pale. NECK: JVD not raised. Mass not palpable. Respiratory effort increased. LUNGS: Diminished breath sounds. Poor expiration and wheezing. CARDIOVASCULAR: First and second sounds normal. No edema. ABDOMEN: Soft, nontender. Liver and spleen not palpable. PSYCHIATRY: Alert and oriented x3. Mood and affect normal. INVESTIGATIONS: Potassium 4. BUN 18, creatinine 0.81. ASSESSMENT: 1. Acute severe chronic obstructive pulmonary disease exacerbation in an ex-smoker, slow to respond. 2. Right lower lobe community-acquired suspect gram-negative organism. 3. Morbid obesity. Body mass index 40. 4. Anxiety, depression, not otherwise specified. 5. Sleep apnea, does use CPAP machine. PLAN: Continue current medication and treatment plan. We will increase the frequency of patient's nebulizers.
[2016-07-20 11:48] LABS: Glucose,Whole Blood 136 mg/dL (75-99)
--- NOTE | 2016-07-20 16:27 | P.PN ---
Subjective This is a very pleasant 46-year-old female patient who follows with Dr. Olmstead in our office for chronic bronchial asthma. 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 She was admitted here on 07/16/2016 with complaints of increasing shortness of breath, cough and congestion. She has been slow to progress. She has been treated with IV Solu-Medrol, short acting bronchodilators, Pulmicort and Perforomist inhalations twice a day. She's been on Tessalon Perles. She's been on any diuretics in the form of Levaquin. She is seen again today 07/20/2016 in follow-up on the regular medical floor. She is awake and alert in no acute distress. She states she is breathing easier today as compared to yesterday. Not quite back to her baseline. She is still dyspneic with minimal exertion. She continues with a dry nonproductive cough. Objective - Vital Signs Vital signs: Vital Signs Temp 97.5 F L 07/20/16 07:00 Pulse 92 07/20/16 12:41 Resp 15 07/20/16 07:00 BP 139/64 07/20/16 07:00 Pulse Ox 95 07/20/16 07:00 Intake & Output 07/19/16 07/20/16 07/20/16 18:59 06:59 18:59 Intake Total 480 Balance 480 Intake: Oral 480 Other: Voiding Method Toilet # Voids 3 3 - Exam GENERAL EXAM: Obese. Alert, active, comfortable in no apparent distress. HEAD: Normocephalic. EYES: Normal reaction of pupils, equal size. NOSE: Clear with pink turbinates. THROAT: No erythema or exudates. NECK: No masses, no JVD. CHEST: No chest wall deformity. LUNGS: Equal air entry with end expiratory wheeze. Diminished.. CVS: S1 and S2 normal with no audible murmurs, regular rhythm. ABDOMEN: No hepatosplenomegaly, normal bowel sounds, no guarding or rigidity. SPINE: No scoliosis or deformity SKIN: No rashes CENTRAL NERVOUS SYSTEM: No focal deficits, tone is normal in all 4 extremities. Extremities: There is trace peripheral edema. No clubbing, no cyanosis. Peripheral pulses are intact. - Labs CBC & Chem 7: 07/16/16 22:40 07/19/16 06:58 Labs: Abnormal Lab Results - Last 24 Hours (Table) 07/19/16 07/19/16 07/20/16 Range/Units 16:32 20:35 07:06 POC Glucose (mg/dL) 143 H 242 H 170 H (75-99) mg/dL 07/20/16 Range/Units 11:36 POC Glucose (mg/dL) 136 H (75-99) mg/dL Microbiology - Last 24 Hours (Table) 07/19/16 05:10 Gram Stain - Preliminary Sputum Sputum Culture - Preliminary Assessment and Plan Plan: Impression: #1 Acute exacerbation of oxygen dependent chronic obstructive pulmonary disease. #2 Chronic tobacco dependence. Approximately 30 years at 1 pack per day however quit approximately 5 months ago. #3 Obstructive sleep apnea currently utilizing CPAP. #4 Acute exacerbation of chronic moderate persistent asthma. #5 History of hypoplastic left lung syndrome and absence of left pulmonary artery. #6 Diabetes mellitus, type II. #7 History of anxiety/depression. Plan: The patient was seen and evaluated by Dr. Peralta. She is slightly improved today as compared to yesterday. We'll continue with her current medications. We will increase her activity as tolerated. We'll continue to follow make further recommendations based on her clinical status.
[2016-07-20 17:38] LABS: Glucose,Whole Blood 251 mg/dL (75-99)
[2016-07-20 20:49] LABS: Glucose,Whole Blood 164 mg/dL (75-99)
[2016-07-20] MEDS ORDERED: ALBUTEROL NEBULIZED 2.5 MG/3 ML INHALATION SCH (22:05)
[2016-07-21] MEDS: methylPREDNISolone SOD SUCCI 40 MG/ML 1 ML VIAL IV SCH ×4 (00:06→23:44)
[2016-07-21] MEDS: ALBUTEROL NEB (CONC) 2.5 MG/0.5 ML INHALATION SCH ×7 (00:58→23:46)
[2016-07-21] MEDS: IPRATROPIUM 0.5 MG/2.5 ML NEBU INHALATION SCH ×7 (00:58→23:46)
[2016-07-21 02:26] VITALS: RESP 16
[2016-07-21 06:58] LABS: Glucose,Whole Blood 209 mg/dL (75-99)
[2016-07-21] MEDS: metFORMIN 500 MG TAB PO SCH ×2 (07:58→18:06)
[2016-07-21] MEDS: buPROPion SR 150 MG TABLET.ER PO SCH ×2 (07:58→20:55)
[2016-07-21] MEDS: PARoxetine 20 MG TAB PO SCH ×2 (07:59→20:55)
[2016-07-21] MEDS: LORATADINE-PSEUDOEPH 5-120 MG 1 EACH TAB.ER.12H PO SCH ×2 (07:59→20:55)
[2016-07-21] MEDS: ENOXAPARIN 40 MG/0.4 ML SYRINGE SQ SCH (07:59)
[2016-07-21] MEDS: TOPIRAMATE 25 MG TAB PO SCH ×3 (07:59→20:55)
[2016-07-21] MEDS: LEVOFLOXACIN 500 MG TAB PO SCH (07:59)
[2016-07-21] MEDS: DILTIAZEM CD 120 MG CAP.ER.24H PO SCH (07:59)
[2016-07-21] MEDS: INSULIN LISPRO (humaLOG) 300 UNIT/3 ML VIAL SQ SCH ×4 (08:00→20:55)
[2016-07-21] MEDS: BUDESONIDE 1 MG/2 ML NEBU INHALATION SCH ×2 (08:29→19:27)
[2016-07-21] MEDS: FORMOTEROL FUMARATE 20 MCG/2 ML NEBU INHALATION SCH ×2 (08:29→19:27)
--- NOTE | 2016-07-21 11:03 | PN ---
DATE OF SERVICE: 07/20/2016 PRESENTING COMPLAINT: Short of breath, less wheezing. INTERVAL HISTORY: This patient presented with severe chronic obstructive pulmonary disease exacerbation. Decreased wheezing, sputum culture coming down. Tolerating a diet. Review of systems done for constitutional, cardiovascular, GI, pulmonary, relevant findings as above. Current medications are reviewed. On examination, temperature 97.5, pulse 70, respiration 15, blood pressure 130/64, pulse ox 95% on 2 liters. GENERAL APPEARANCE: Sitting up, not in distress. EYES: Pupils equal. Conjunctivae normal. NECK: JVD not raised. Mass not palpable. RESPIRATORY: Effort increased. LUNGS: Slightly improved air entry. Prolonged wheezing, some prolonged expiration. CARDIOVASCULAR: First and second sounds normal. No edema. ABDOMEN: Soft. Nontender. Liver and spleen not palpable. PSYCHIATRY: Alert and oriented x3. Mood and affect normal. INVESTIGATIONS: Accu-Cheks are noted. ASSESSMENT: 1. Acute severe chronic obstructive pulmonary disease exacerbation in an ex-smoker. 2. Right lower lobe pneumonia, acquired suspect gram-negative organism. 3. Morbid obesity, body mass index of 40. 4. Anxiety, depression, not otherwise specified. 5. Sleep apnea, does use CPAP machine. PLAN: Continue current medication and treatment plan. We will cut back on Solu-Medrol to 40 q.8 p.r.n. Continue other medication and treatment plan. Will follow.
[2016-07-21 11:59] LABS: Glucose,Whole Blood 254 mg/dL (75-99)
--- NOTE | 2016-07-21 15:17 | P.PN ---
Subjective This is a very pleasant 46-year-old female patient who follows with Dr. Olmstead in our office for chronic bronchial asthma. 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 She was admitted here on 07/16/2016 with complaints of increasing shortness of breath, cough and congestion. She has been slow to progress. She has been treated with IV Solu-Medrol, short acting bronchodilators, Pulmicort and Perforomist inhalations twice a day. She's been on Tessalon Perles. She's been on any diuretics in the form of Levaquin. She is seen again today 07/21/2016 on follow-up. Her sputum culture reveals no growth. She is awake and alert in no acute distress. She states she is breathing easier today as compared to yesterday. Not quite back to her baseline. She is still dyspneic with minimal exertion. She continues with a dry nonproductive cough. Maintaining good O2 saturations in the upper 90's on room air. Afebrile. Objective - Vital Signs Vital signs: Vital Signs Temp 96.8 F L 07/21/16 14:24 Pulse 93 07/21/16 14:24 Resp 16 07/21/16 14:24 BP 148/74 07/21/16 14:24 Pulse Ox 98 07/21/16 14:24 Intake & Output 07/20/16 07/21/16 07/21/16 18:59 06:59 18:59 Intake Total 1460 360 Balance 1460 360 Intake: Oral 1460 360 Other: Voiding Method Toilet Toilet # Voids 1 3 - Exam GENERAL EXAM: Obese. Alert, active, comfortable in no apparent distress. HEAD: Normocephalic. EYES: Normal reaction of pupils, equal size. NOSE: Clear with pink turbinates. THROAT: No erythema or exudates. NECK: No masses, no JVD. CHEST: No chest wall deformity. LUNGS: Equal air entry with end expiratory wheeze. Diminished.. CVS: S1 and S2 normal with no audible murmurs, regular rhythm. ABDOMEN: No hepatosplenomegaly, normal bowel sounds, no guarding or rigidity. SPINE: No scoliosis or deformity SKIN: No rashes CENTRAL NERVOUS SYSTEM: No focal deficits, tone is normal in all 4 extremities. Extremities: There is trace peripheral edema. No clubbing, no cyanosis. Peripheral pulses are intact. - Labs CBC & Chem 7: 07/16/16 22:40 07/19/16 06:58 Labs: Abnormal Lab Results - Last 24 Hours (Table) 07/20/16 07/20/16 07/21/16 Range/Units 16:43 20:37 06:56 POC Glucose (mg/dL) 251 H 164 H 209 H (75-99) mg/dL 07/21/16 Range/Units 11:50 POC Glucose (mg/dL) 254 H (75-99) mg/dL Microbiology - Last 24 Hours (Table) 07/19/16 05:10 Gram Stain - Final Sputum Sputum Culture - Final Assessment and Plan Plan: Impression: #1 Acute exacerbation of oxygen dependent chronic obstructive pulmonary disease. #2 Chronic tobacco dependence. Approximately 30 years at 1 pack per day however quit approximately 5 months ago. #3 Obstructive sleep apnea currently utilizing CPAP. #4 Acute exacerbation of chronic moderate persistent asthma. #5 History of hypoplastic left lung syndrome and absence of left pulmonary artery. #6 Diabetes mellitus, type II. #7 History of anxiety/depression. Plan: The patient was seen and evaluated by Dr. Peralta. She is improved but not quite back to her baseline. We'll continue with her current medications. Steroids are being weaned. We will increase her activity as tolerated. We'll continue to follow make further recommendations based on her clinical status.
[2016-07-21 16:58] LABS: Glucose,Whole Blood 174 mg/dL (75-99)
[2016-07-21 21:05] LABS: Glucose,Whole Blood 189 mg/dL (75-99)
--- NOTE | 2016-07-21 22:58 | PN ---
DATE OF SERVICE: 07/21/2016 PRESENTING COMPLAINT: Short of breath, wheezing. INTERVAL HISTORY: This patient presented with severe COPD exacerbation. Getting better. Wheezing is coming down. Sputum production is coming down. Tolerating a diet better. Patient's son at the bedside today. Patient has been out of bed. Review of systems done for constitutional, cardiovascular, GI, pulmonary; relevant findings as above. Current medications are reviewed that include nebulized bronchodilators and IV Solu-Medrol. On examination, temperature 96.8, pulse 93, respiration 16, blood pressure 140/74, pulse ox 98% on room air. GENERAL APPEARANCE: Sitting up. Looking better. EYES: Pupils equal. Conjunctivae normal. NECK: JVD not raised. Mass not palpable. RESPIRATORY: Effort normal. LUNGS: Improving air entry, though prolonged expiration and wheezing are still present. CARDIOVASCULAR: First and second sounds normal. No edema. ABDOMEN: Soft, nontender. Liver and spleen not palpable. PSYCHIATRY: Alert and oriented x3. Mood and affect normal. INVESTIGATIONS: ( ) culture shows normal rudi. ASSESSMENT: 1. Acute severe chronic obstructive pulmonary disease exacerbation in a smoker, improving. 2. Right lower lobe pneumonia, acquired; suspect Gram-negative organism; present on admission. 3. Moderate obesity; body mass index of 40. 4. Anxiety, depressive not otherwise specified. 5. Sleep apnea; does use CPAP machine. PLAN: Patient is doing better. Hoping patient can be discharged in probably next 24 hours.
[2016-07-21] MEDS: IPRATROPIUM-ALBUTEROL 3 ML NEB INHALATION PRN (23:46)
[2016-07-22] MEDS: IPRATROPIUM 0.5 MG/2.5 ML NEBU INHALATION SCH ×4 (04:00→15:53)
[2016-07-22] MEDS: ALBUTEROL NEB (CONC) 2.5 MG/0.5 ML INHALATION SCH ×4 (04:00→15:53)
[2016-07-22 07:06] LABS: Glucose,Whole Blood 200 mg/dL (75-99)
[2016-07-22] MEDS: FORMOTEROL FUMARATE 20 MCG/2 ML NEBU INHALATION SCH (07:48)
[2016-07-22] MEDS: BUDESONIDE 1 MG/2 ML NEBU INHALATION SCH (07:48)
[2016-07-22] MEDS: DILTIAZEM CD 120 MG CAP.ER.24H PO SCH (08:00)
[2016-07-22] MEDS: ENOXAPARIN 40 MG/0.4 ML SYRINGE SQ SCH (08:00)
[2016-07-22] MEDS: methylPREDNISolone SOD SUCCI 40 MG/ML 1 ML VIAL IV SCH ×2 (08:00→17:02)
[2016-07-22] MEDS: buPROPion SR 150 MG TABLET.ER PO SCH (08:00)
[2016-07-22] MEDS: PARoxetine 20 MG TAB PO SCH (08:00)
[2016-07-22] MEDS: metFORMIN 500 MG TAB PO SCH ×2 (08:00→17:49)
[2016-07-22] MEDS: LORATADINE-PSEUDOEPH 5-120 MG 1 EACH TAB.ER.12H PO SCH (08:00)
[2016-07-22] MEDS: INSULIN LISPRO (humaLOG) 300 UNIT/3 ML VIAL SQ SCH ×3 (08:01→17:48)
[2016-07-22] MEDS: LEVOFLOXACIN 500 MG TAB PO SCH (08:01)
[2016-07-22] MEDS: TOPIRAMATE 25 MG TAB PO SCH ×2 (08:01→17:49)
[2016-07-22 11:28] LABS: Glucose,Whole Blood 185 mg/dL (75-99)
[2016-07-22 14:42] VITALS: BP 113/66; TEMP 98.6
--- NOTE | 2016-07-22 15:45 | P.PN ---
Subjective This is a very pleasant 46-year-old female patient who follows with Dr. Olmstead in our office for chronic bronchial asthma. 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 She was admitted here on 07/16/2016 with complaints of increasing shortness of breath, cough and congestion. She has been slow to progress. She has been treated with IV Solu-Medrol, short acting bronchodilators, Pulmicort and Perforomist inhalations twice a day. She's been on Tessalon Perles. She's been on any diuretics in the form of Levaquin. She is seen again today 07/21/2016 on follow-up. Her sputum culture reveals no growth. She is awake and alert in no acute distress. She states she is breathing easier today as compared to yesterday. Not quite back to her baseline. She is still dyspneic with minimal exertion. She continues with a dry nonproductive cough. Maintaining good O2 saturations in the upper 90's on room air. Afebrile. The patient is seen again today 07/22/2016 in follow-up. She is awake and alert in no acute distress. She states she is nearly back to her baseline. She is slightly dyspneic on minimal exertion. She is still maintaining good O2 saturations on room air. She denies any worsening cough congestion chills or night sweats. She is anxious to go home. Objective - Vital Signs Vital signs: Vital Signs Temp 98.6 F 07/22/16 14:41 Pulse 98 07/22/16 14:41 Resp 16 07/22/16 14:41 BP 113/66 07/22/16 14:41 Pulse Ox 93 L 07/22/16 14:41 Intake & Output 07/21/16 07/22/16 07/22/16 18:59 06:59 18:59 Intake Total 360 1150 360 Balance 360 1150 360 Intake: Oral 360 1150 360 Other: Voiding Method Toilet Toilet # Voids 3 2 2 - Exam GENERAL EXAM: Obese. Alert, active, comfortable in no apparent distress. HEAD: Normocephalic. EYES: Normal reaction of pupils, equal size. NOSE: Clear with pink turbinates. THROAT: No erythema or exudates. NECK: No masses, no JVD. CHEST: No chest wall deformity. LUNGS: Equal air entry with end expiratory wheeze. Diminished.. CVS: S1 and S2 normal with no audible murmurs, regular rhythm. ABDOMEN: No hepatosplenomegaly, normal bowel sounds, no guarding or rigidity. SPINE: No scoliosis or deformity SKIN: No rashes CENTRAL NERVOUS SYSTEM: No focal deficits, tone is normal in all 4 extremities. Extremities: There is trace peripheral edema. No clubbing, no cyanosis. Peripheral pulses are intact. - Labs CBC & Chem 7: 07/16/16 22:40 07/19/16 06:58 Labs: Abnormal Lab Results - Last 24 Hours (Table) 07/21/16 07/21/16 07/22/16 Range/Units 16:45 20:54 06:45 POC Glucose (mg/dL) 174 H 189 H 200 H (75-99) mg/dL 07/22/16 Range/Units 11:27 POC Glucose (mg/dL) 185 H (75-99) mg/dL Assessment and Plan Plan: Impression: #1 Acute exacerbation of oxygen dependent chronic obstructive pulmonary disease. #2 Chronic tobacco dependence. Approximately 30 years at 1 pack per day however quit approximately 5 months ago. #3 Obstructive sleep apnea currently utilizing CPAP. #4 Acute exacerbation of chronic moderate persistent asthma. #5 History of hypoplastic left lung syndrome and absence of left pulmonary artery. #6 Diabetes mellitus, type II. #7 History of anxiety/depression. Plan: The patient was seen and evaluated by Dr. Peralta. She is stable from the pulmonary standpoint and could be discharged home. She'll follow up with Dr. Olmstead in our office in 1 week. She'll complete her course of antibiotics and her prednisone taper. Continue her home pulmonary medications. She is encouraged to call sooner with any recurrence of symptoms or any other questions or concerns.
[2016-07-22 15:56] VITALS: PULSE 90
[2016-07-22 16:47] LABS: Glucose,Whole Blood 164 mg/dL (75-99)
--- NOTE | 2016-07-23 20:26 | DS ---
DATE OF ADMISSION: 07/17/2016 DATE OF DISCHARGE: 07/22/2016 FINAL DIAGNOSES: 1. Acute severe chronic obstructive pulmonary disease exacerbation in a smoker. 2. Right lower lobe pneumonia, acquired, suspect gram-negative orgasm present on admission. 3. Morbid obesity, body mass index of 40. 4. Anxiety and depression, not otherwise specified. 5. Sleep apnea, does not use CPAP machine. HOSPITAL COURSE: This patient stopped smoking, presented with severe COPD exacerbation, doing better by the time of discharge. CONSULTATION: Dr. Peralta. On exam, LUNGS: Slightly decreased breath sounds, prolonged expiration. CARDIOVASCULAR: First and second sounds normal. DISCHARGE MEDICATIONS: 1. Xanax 0.25 p.o. t.i.d. p.r.n. 2. Vitamin D3 5000 units p.o. daily. 3. Cardizem ER 120 mg a day. 4. Advair 500/50, 1 puff b.i.d. 5. Paxil CR 25 mg b.i.d. 6. Wellbutrin SR 150 mg p.o. b.i.d. 7. Glucophage XR 1000 mg p.o. b.i.d. 8. Ventolin HFA 1 to 2 puffs q.6 p.r.n. 9. [place] 10, 1 tablet p.o. q.6 p.r.n. 10. Naproxen 500 mg p.o. q.12 p.r.n. 11. Segun-24 100 mg p.o. b.i.d. 12. Topamax 25 mg p.o. b.i.d. with meals. 13. Tylenol 1000 mg p.o. q.4 to 6 p.r.n. 14. Ventolin 2.5 t.i.d. p.r.n. 15. DuoNeb q.i.d. 16. Levaquin 500 mg daily 3 tablets. 17. Claritin-D 1 tablet q.12, 6 tablets. 18. Prednisone taper. Follow up with Dr. Olmstead on 07/31/16. Follow with Dr. Acosta in 3 days. Discharge planning more than 35 minutes.
== END 2016-07-22 18:51 | disposition home or self-care (01) ==
LOC: EC 21:24 → 3SUR 07-17 00:05
PROVIDERS: ADMIT Hospitalist; ATTEND Hospitalist
DX: J44.0 Chronic obstructive pulmonary disease with (acute) lower respiratory infection (principal); J18.9 Pneumonia, unspecified organism; J44.1 Chronic obstructive pulmonary disease with (acute) exacerbation; F17.200 Nicotine dependence, unspecified, uncomplicated; E66.01 Morbid (severe) obesity due to excess calories; Z68.41 Body mass index [BMI] 40.0-44.9, adult; E11.9 Type 2 diabetes mellitus without complications; F32.9 Major depressive disorder, single episode, unspecified; F41.9 Anxiety disorder, unspecified; G47.33 Obstructive sleep apnea (adult) (pediatric); J45.40 Moderate persistent asthma, uncomplicated; Q33.6 Congenital hypoplasia and dysplasia of lung; Z82.49 Family history of ischemic heart disease and other diseases of the circulatory system; Z88.0 Allergy status to penicillin; Z99.81 Dependence on supplemental oxygen; Z79.899 Other long term (current) drug therapy; Z79.84 Long term (current) use of oral hypoglycemic drugs; Z79.51 Long term (current) use of inhaled steroids; Z91.041 Radiographic dye allergy status
CPT/HCPCS: 36415; 94640 ×13; 94760 ×2; 93005; 85379; 80053; 80048; 83036; 82550; 82553; 84484; 85025; 85610; 85730; 87070; 87205; 71020; 99285; 96375; 96361; G0378 ×6; J2920 ×2; J2930 ×5; S0106 ×6; J1650 ×6; J0696; 96365; 96372; 96376

== ENCOUNTER → 2016-11-30 | Outpatient (CLI) | payer OTHER ==
--- NOTE | 2016-11-30 17:31 | XR ---
EXAMINATION TYPE: XR Hip Bilateral and AP pelvis DATE OF EXAM: 11/30/2016 COMPARISON: NONE HISTORY: Pain TECHNIQUE: 5 views FINDINGS: The pelvic ring is intact. Proximal femurs and hip joints are intact. Sacroiliac joints jillian ear normal. Hip joint spaces are fairly well-maintained. IMPRESSION: Negative pelvis and bilateral hip exam.
== END | disposition home or self-care (01) ==
LOC: RADXRMAIN 17:08
PROVIDERS: ATTEND Family Medicine
DX: R10.2 Pelvic and perineal pain (principal)
CPT/HCPCS: 73521

== ENCOUNTER → 2017-04-26 | Outpatient (CLI) | payer OTHER ==
--- NOTE | 2017-04-26 11:08 | MM ---
Reason for exam: clinical finding. Last mammogram was performed 5 years and 6 months ago. History: Patient is postmenopausal. Family history of breast cancer in mother at age 60 and breast cancer in paternal aunt. Took hormonal contraceptives for 11 years beginning at age 15. Physical Findings: Nurse Summary: adenopathy 0.5cm in the left breast (nurse dw). MG 3D Diag Mammo W/Cad DAMON Bilateral CC and MLO view(s) were taken. Prior study comparison: October 22, 2011, bilateral digital screening mammo w/CAD. There are scattered fibroglandular densities. No significant new findings when compared with previous films. These results were verbally communicated with the patient and result sheet given to the patient on 04/26/17. ASSESSMENT: Incomplete: need additional imaging evaluation, BI-RAD 0 RECOMMENDATION: Ultrasound of the left breast. (targeted to axillary palpable)
--- NOTE | 2017-04-26 11:12 | USB ---
Reason for exam: additional evaluation requested from abnormal screening. History: Patient is postmenopausal. Family history of breast cancer in mother at age 60 and breast cancer in paternal aunt. Took hormonal contraceptives for 11 years beginning at age 15. US Breast Axilla LT Left breast axilla ultrasound demonstrates a 0.5 x 0.4 x 0.2cm cystic lesion at the axilla. This is just deep to the skin and may partially involve the skin. Findings suggest a sebaceous or epidermal inclusion cyst. These results were verbally communicated with the patient and result sheet given to the patient on 04/26/17. ASSESSMENT: Benign, BI-RAD 2 RECOMMENDATION: Routine screening mammogram of both breasts in 1 year. Manage on a clinical basis with regard to the palpable area in the left axilla that could represent a sebaceous cyst or epidermal inclusion cyst. [facility]
== END | disposition home or self-care (01) ==
LOC: RADMAMWWP 09:36
PROVIDERS: ATTEND Family Medicine
DX: N63.32 Unspecified lump in axillary tail of the left breast (principal); R92.8 Other abnormal and inconclusive findings on diagnostic imaging of breast
CPT/HCPCS: 76642; G0204; G0279

== ENCOUNTER 2017-06-11 12:05 | Emergency (ER) | payer OTHER ==
[2017-06-11 12:16] VITALS: RESP 18
--- NOTE | 2017-06-11 12:34 | ED ---
General Adult HPI - General Chief complaint: Chest Pain Stated complaint: Cardiac Issues Time Seen by Provider: 06/11/17 12:17 Source: patient, RN notes reviewed, old records reviewed Mode of arrival: ambulatory Limitations: no limitations - History of Present Illness Initial comments: 47-year-old female presents for evaluation chest pain. She was sent in by her primary care physician for evaluation. Patient's chest pain began yesterday evening while at rest. His been constant since that time. Nonexertional. Denies any cough or shortness of breath. She has had some nausea with no vomiting. No diaphoresis. No history of CAD. Patient is a previous smoker, quit 2 years ago. Patient has a family history of coronary artery disease. She is presenting for evaluation of chest pain and is concerned that it may be her heart. - Related Data Home Medications Medication Instructions Recorded Confirmed Fluticasone/Salmeterol [Advair 1 puff INHALATION RT-BID 03/24/15 06/11/17 500-50 Diskus] PARoxetine HCL [Paxil Cr] 25 mg PO BID 03/24/15 06/11/17 buPROPion SR [Wellbutrin SR] 150 mg PO BID 03/24/15 06/11/17 Albuterol Inhaler [Ventolin Hfa 1 - 2 puff INHALATION RT-Q6H PRN 08/14/15 Inhaler] Hydrocodone/Acetaminophen [[place] 1 tab PO TID PRN 02/14/16 06/11/17 10-325] Albuterol Nebulized [Ventolin 2.5 mg INHALATION RT-TID PRN 07/16/16 06/11/17 Nebulized] Cyclobenzaprine [Flexeril] 5 mg PO TID PRN 06/11/17 06/11/17 Hyoscyamine Sulfate [Hyoscyamine 0.125 mg SL Q8H PRN 06/11/17 06/11/17 Sulfate SL] Multivitamins, Thera [Multivitamin 1 tab PO DAILY 06/11/17 06/11/17 (formulary)] Omeprazole [PriLOSEC] 20 mg PO DAILY 06/11/17 06/11/17 Ursodiol [Actigall] 300 mg PO BID 06/11/17 06/11/17 Allergies Allergy/AdvReac Type Severity Reaction Status Date / Time Penicillins Allergy Rash/Hives Verified 06/11/17 13:01 pollen extracts Allergy Dyspnea Verified 06/11/17 13:01 shellfish derived [Shellfish] Allergy Anaphylaxis Verified 06/11/17 13:01 Iodinated Contrast- Oral and AdvReac Rash/Hives Verified 06/11/17 13:01 IV Dye Review of Systems ROS Statement: Those systems with pertinent positive or pertinent negative responses have been documented in the HPI. ROS Other: All systems not noted in ROS Statement are negative. Past Medical History Past Medical History: Asthma, COPD, Diabetes Mellitus, Eye Disorder, Pneumonia, Sleep Apnea/CPAP/BIPAP Additional Past Medical History / Comment(s): cerbation. Other HX: NIDDM thype II, glaucoma bilaterally, tachycardia, AKIRA with CPAP, bronchitis, has O2 at home which she uses prn at 2L/NC . History of Any Multi-Drug Resistant Organisms: None Reported Past Surgical History: Bariatric Surgery, Section, Tubal Ligation Additional Past Surgical History / Comment(s): cyst removal under right breast, x 2. gastric sleeve Past Anesthesia/Blood Transfusion Reactions: No Reported Reaction Past Psychological History: Anxiety, Depression Smoking Status: Former smoker Past Alcohol Use History: None Reported Past Drug Use History: None Reported - Past Family History Mother History Unknown: Yes Family Medical History: COPD Additional Family Medical History / Comment(s): breast cancer. Mother is alive and 74 yrs old. Father History Unknown: Yes Family Medical History: COPD, Myocardial Infarction ([place]), Vascular Disorder Additional Family Medical History / Comment(s): Father at age 64yrs. General Exam Limitations: no limitations General appearance: alert, in no apparent distress Head exam: Present: atraumatic, normocephalic Eye exam: Present: normal appearance, PERRL ENT exam: Present: normal exam Neck exam: Present: normal inspection. Absent: tenderness, meningismus Respiratory exam: Present: normal lung sounds bilaterally. Absent: respiratory distress, wheezes Cardiovascular Exam: Present: regular rate, normal rhythm GI/Abdominal exam: Present: soft. Absent: distended, tenderness Extremities exam: Present: normal inspection, normal capillary refill. Absent: pedal edema Neurological exam: Present: alert, oriented X3, CN II-XII intact. Absent: motor sensory deficit Psychiatric exam: Present: normal affect, normal mood Skin exam: Present: warm, dry, intact. Absent: cyanosis, diaphoretic Course Vital Signs 06/11/17 12:12 Temperature 98.4 F Pulse Rate 65 Respiratory 18 Rate Blood Pressure 132/60 O2 Sat by Pulse 98 Oximetry EKG Findings - EKG Comments: EKG Findings:: EKG shows sinus bradycardia, left axis deviation, ventricular rate 59, SD 170, QRS duration 100, QTC 417, no signs of acute ischemia Medical Decision Making - Medical Decision Making 39-year-old female presenting with atypical chest pain. Pain is been present for greater then 12 hours. History not concerning for ischemic heart disease. Patient was sent in by her primary care physician for evaluation. Laboratory studies are obtained, negative troponin, negative d-dimer, all other laboratory studies are unremarkable. Chest x-ray shows no acute findings. EKG is nonischemic. Case is discussed with Dakota austin physician engineering assistant from her primary care physician's office. The workup that was completed is what the primary care physician had desire. No further workup at this time. Patient will follow-up with her primary care physician in the office within the next several days. - Lab Data Result diagrams: 06/11/17 12:38 06/11/17 12:38 Lab Results 06/11/17 06/11/17 06/11/17 Range/Units 12:38 12:38 12:38 WBC 7.2 (3.8-10.6) k/uL RBC 4.85 (3.80-5.40) m/uL Hgb 14.1 (11.4-16.0) gm/dL Hct 44.1 (34.0-46.0) % MCV 90.9 (80.0-100.0) fL MCH 29.0 (25.0-35.0) pg MCHC 31.9 (31.0-37.0) g/dL RDW 12.8 (11.5-15.5) % Plt Count 264 (150-450) k/uL Neutrophils % 47 % Lymphocytes % 36 % Monocytes % 6 % Eosinophils % 5 % Basophils % 1 % Neutrophils # 3.4 (1.3-7.7) k/uL Lymphocytes # 2.6 (1.0-4.8) k/uL Monocytes # 0.4 (0-1.0) k/uL Eosinophils # 0.4 (0-0.7) k/uL Basophils # 0.1 (0-0.2) k/uL PT (9.0-12.0) sec INR (<1.2) APTT (22.0-30.0) sec D-Dimer (<0.60) mg/L FEU Sodium 141 (137-145) mmol/L Potassium 4.0 (3.5-5.1) mmol/L Chloride 104 (98-107) mmol/L Carbon Dioxide 28 (22-30) mmol/L Anion Gap 9 mmol/L BUN 10 (7-17) mg/dL Creatinine 0.61 (0.52-1.04) mg/dL Est GFR (MDRD) Af Amer >60 (>60 ml/min/1.73 sqM) Est GFR (MDRD) Non-Af >60 (>60 ml/min/1.73 sqM) Glucose 98 (74-99) mg/dL Calcium 9.8 (8.4-10.2) mg/dL Magnesium 2.0 (1.6-2.3) mg/dL Total Bilirubin 0.6 (0.2-1.3) mg/dL AST 28 (14-36) U/L ALT 44 (9-52) U/L Alkaline Phosphatase 127 H (38-126) U/L Total Creatine Kinase 31 (30-135) U/L CK-MB (CK-2) 0.3 (0.0-2.4) ng/mL CK-MB (CK-2) Rel Index 1.0 Troponin I <0.012 (0.000-0.034) ng/mL NT-Pro-B Natriuret Pep pg/mL Total Protein 6.6 (6.3-8.2) g/dL Albumin 4.0 (3.5-5.0) g/dL Lipase 117 (23-300) U/L 06/11/17 06/11/17 Range/Units 12:38 12:38 WBC (3.8-10.6) k/uL RBC (3.80-5.40) m/uL Hgb (11.4-16.0) gm/dL Hct (34.0-46.0) % MCV (80.0-100.0) fL MCH (25.0-35.0) pg MCHC (31.0-37.0) g/dL RDW (11.5-15.5) % Plt Count (150-450) k/uL Neutrophils % % Lymphocytes % % Monocytes % % Eosinophils % % Basophils % % Neutrophils # (1.3-7.7) k/uL Lymphocytes # (1.0-4.8) k/uL Monocytes # (0-1.0) k/uL Eosinophils # (0-0.7) k/uL Basophils # (0-0.2) k/uL PT 9.8 (9.0-12.0) sec INR 1.0 (<1.2) APTT 24.7 (22.0-30.0) sec D-Dimer 0.47 (<0.60) mg/L FEU Sodium (137-145) mmol/L Potassium (3.5-5.1) mmol/L Chloride (98-107) mmol/L Carbon Dioxide (22-30) mmol/L Anion Gap mmol/L BUN (7-17) mg/dL Creatinine (0.52-1.04) mg/dL Est GFR (MDRD) Af Amer (>60 ml/min/1.73 sqM) Est GFR (MDRD) Non-Af (>60 ml/min/1.73 sqM) Glucose (74-99) mg/dL Calcium (8.4-10.2) mg/dL Magnesium (1.6-2.3) mg/dL Total Bilirubin (0.2-1.3) mg/dL AST (14-36) U/L ALT (9-52) U/L Alkaline Phosphatase (38-126) U/L Total Creatine Kinase (30-135) U/L CK-MB (CK-2) (0.0-2.4) ng/mL CK-MB (CK-2) Rel Index Troponin I (0.000-0.034) ng/mL NT-Pro-B Natriuret Pep 152 pg/mL Total Protein (6.3-8.2) g/dL Albumin (3.5-5.0) g/dL Lipase (23-300) U/L Disposition Clinical Impression: Atypical chest pain Disposition: HOME SELF-CARE Condition: Good Instructions: Chest Pain (ED) Referrals: Julio Acosta MD [Primary Care Provider] - 1-2 days Time of Disposition: 14:35
[2017-06-11 13:00] LABS: D-Dimer 0.47 mg/L FEU (<0.60)
[2017-06-11 13:04] LABS: Partial Thromboplastin Time 24.7 sec (22.0-30.0); Prothrombin Time 9.8 sec (9.0-12.0)
[2017-06-11 13:08] LABS: ALT 44 U/L (9-52); AST 28 U/L (14-36); Alkaline Phosphatase 127 U/L (38-126); Anion Gap 9 mmol/L; Blood Urea Nitrogen 10 mg/dL (7-17); Calcium 9.8 mg/dL (8.4-10.2); Carbon Dioxide 28 mmol/L (22-30); Chloride 104 mmol/L (98-107); Glucose 98 mg/dL (74-99); Lipase 117 U/L (23-300); Sodium 141 mmol/L (137-145); Total Bilirubin 0.6 mg/dL (0.2-1.3); Total Protein 6.6 g/dL (6.3-8.2)
[2017-06-11 13:11] LABS: Basophils # (A) 0.1 k/uL (0-0.2); Basophils % (A) 1 %; Eosinophils # (A) 0.4 k/uL (0-0.7); Eosinophils % (A) 5 %; HCT 44.1 % (34.0-46.0); HGB 14.1 gm/dL (11.4-16.0); Lymphocytes # (A) 2.6 k/uL (1.0-4.8); Lymphocytes % (A) 36 %; MCHC 31.9 g/dL (31.0-37.0); MCV 90.9 fL (80.0-100.0); Mean Platelet Volume 7.9; Monocytes # (A) 0.4 k/uL (0-1.0); Monocytes % (A) 6 %; Neutrophils # (A) 3.4 k/uL (1.3-7.7); Neutrophils % (A) 47 %; Platelet Count 264 k/uL (150-450); RBC 4.85 m/uL (3.80-5.40); RDW 12.8 % (11.5-15.5); WBC 7.2 k/uL (3.8-10.6)
[2017-06-11 13:18] LABS: Creatine Kinase 31 U/L (30-135)
--- NOTE | 2017-06-11 13:20 | XR ---
EXAMINATION TYPE: XR chest 2V DATE OF EXAM: 06/11/2017 COMPARISON: 07/16/2016 HISTORY: Chest discomfort TECHNIQUE: Frontal and lateral views of the chest are obtained. FINDINGS: There is no focal air space opacity, pleural effusion, or pneumothorax seen. The cardiac silhouette size is within normal limits. The osseous structures are intact. Mediastinum is rotated to the left secondary to patient positioning, similar to the prior exam. IMPRESSION: No acute cardiopulmonary process.
[2017-06-11 13:30] LABS: Creatine Kinase MB 0.3 ng/mL (0.0-2.4); Troponin I <0.012 ng/mL (0.000-0.034)
[2017-06-11 14:44] VITALS: BP 119/65; PULSE 55; TEMP 97.3
== END 2017-06-11 14:46 | disposition home or self-care (01) ==
LOC: EC 12:05
DX: R07.89 Other chest pain (principal); R11.0 Nausea; J44.9 Chronic obstructive pulmonary disease, unspecified; E11.9 Type 2 diabetes mellitus without complications; G47.30 Sleep apnea, unspecified; Z99.89 Dependence on other enabling machines and devices; F32.9 Major depressive disorder, single episode, unspecified; F41.9 Anxiety disorder, unspecified; Z87.891 Personal history of nicotine dependence; Z79.51 Long term (current) use of inhaled steroids; Z79.899 Other long term (current) drug therapy; Z88.0 Allergy status to penicillin; Z91.013 Allergy to seafood; Z91.041 Radiographic dye allergy status; Z91.048 Other nonmedicinal substance allergy status; Z82.49 Family history of ischemic heart disease and other diseases of the circulatory system
CPT/HCPCS: 36415; 71046; 80053; 82550; 82553; 83690; 83735; 83880; 84484; 85025; 85379; 85610; 85730; 93005; 99285

== ENCOUNTER → 2017-10-26 | Outpatient (CLI) | payer OTHER ==
[2017-10-26 11:17] VITALS: BP 116/73; PULSE 61; TEMP 97.7; BMI 28.3
--- NOTE | 2017-10-26 11:44 | P.HPOB ---
History of Present Illness H&P Date: 10/26/17 Chief Complaint: The patient is here for her routine gynecologic exam. This is a 47-year-old with an LMP of September 2016. The patient states that has been more than 2 years since her last pelvic exam. She is status post tubal sterilization. She does have some hot flashes but these are improving. Prior to her to her LMP her menses were spacing out and hot flashes were getting worse. She is without complaints at this time. Review of Systems She has lost about 55 pounds since her gastric sleeve surgery in March 2017. She denies respiratory, cardiac, or G.I. problems. Past Medical History Past Medical History: Asthma, COPD, Diabetes Mellitus (Type II diabetes which does not require medications since her gastric sleeve surgery in 2016), Eye Disorder, GERD/Reflux, Pneumonia (In the past), Sleep Apnea/CPAP/BIPAP Additional Past Medical History / Comment(s): cerbation. Other HX: NIDDM thype II, glaucoma bilaterally, tachycardia, AKIRA with CPAP, bronchitis, has O2 at home which she uses prn at 2L/NC . 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 History of Any Multi-Drug Resistant Organisms: None Reported Past Surgical History: Bariatric Surgery (Gastric sleeve surgery 2017), Section (Times 2), Tubal Ligation Additional Past Surgical History / Comment(s): cyst removal under right breast, x 2. gastric sleeve Past Anesthesia/Blood Transfusion Reactions: No Reported Reaction Past Psychological History: Anxiety, Depression Additional Psychological History / Comment(s): Pt resides with her spouse and a 16 and 18 yr old child. She also has a 10 month old grandson that lives with them. She is normally independent. She uses no assistive device. She drives. She has O2 which she uses prn and a nebulizer and glucose monitor at home. Smoking Status: Former smoker (Quit in 2015) Past Alcohol Use History: None Reported Additional Past Alcohol Use History / Comment(s): Pt states she started smoking in 1986 and quit 5 months ago. 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 - Past Family History Mother History Unknown: Yes Family Medical History: Cancer (Breast cancer), COPD Additional Family Medical History / Comment(s): Mother is alive and 74 yrs old. She also has a paternal aunt with breast cancer. Father History Unknown: Yes Family Medical History: COPD, Myocardial Infarction ([place]), Vascular Disorder Additional Family Medical History / Comment(s): Father at age 64yrs. Medications and Allergies Home Medications Medication Instructions Recorded Confirmed Type Fluticasone/Salmeterol [Advair 1 puff INHALATION RT-BID 03/24/15 06/11/17 History 500-50 Diskus] PARoxetine HCL [Paxil Cr] 25 mg PO BID 03/24/15 06/11/17 History Albuterol Inhaler [Ventolin Hfa 1 - 2 puff INHALATION RT-Q6H PRN 08/14/15 History Inhaler] Hydrocodone/Acetaminophen [[place] 1 tab PO TID PRN 02/14/16 06/11/17 History 10-325] Albuterol Nebulized [Ventolin 2.5 mg INHALATION RT-TID PRN 07/16/16 06/11/17 History Nebulized] Cyclobenzaprine [Flexeril] 5 mg PO TID PRN 06/11/17 06/11/17 History Multivitamins, Thera [Multivitamin 1 tab PO DAILY 06/11/17 06/11/17 History (formulary)] Omeprazole [PriLOSEC] 20 mg PO DAILY 06/11/17 06/11/17 History Ursodiol [Actigall] 300 mg PO BID 06/11/17 06/11/17 History Allergies Allergy/AdvReac Type Severity Reaction Status Date / Time Penicillins Allergy Rash/Hives Verified 10/26/17 11:14 pollen extracts Allergy Dyspnea Verified 10/26/17 11:14 shellfish derived [Shellfish] Allergy Anaphylaxis Verified 10/26/17 11:14 Iodinated Contrast- Oral and AdvReac Rash/Hives Verified 10/26/17 11:14 IV Dye Exam - Vital Signs Vital signs: Vital Signs Temp Pulse BP 10/26/17 11:14 97.7 F 61 116/73 Intake and Output 10/25/17 10/26/17 10/26/17 22:59 06:59 14:59 Other: Weight 65.771 kg This is a well-developed well-nourished weight female who is alert and oriented times 3 in no acute distress. HEENT: Within normal limits. NECK: Supple without mass or thyromegaly. CHEST AND LUNGS: Clear to auscultation. HEART: Regular rate and rhythm. BREASTS: Are without mass or discharge. AXILLARY EXAM: Negative for adenopathy. BACK: Negative for CVA tenderness. ABDOMEN: Soft, nontender, without palpable masses. PELVIC EXAM: Normal external genitalia with minimal atrophy. Cervix and vagina appear normal with minimal atrophy. There is no unusual discharge. There is no evidence of prolapse. The uterus is midposition, nongravid size and nontender. There are no palpable adnexal masses or tenderness. RECTAL EXAM: rectovaginal exam is negative for mass or tenderness and is negative for occult blood. EXTREMITIES: Nontender. IMPRESSION: 1. 47-year-old menopausal female following one year of amenorrhea. 2. Vasomotor symptoms related to the menopausal change which are improving. 3. Normal gynecologic exam. PLAN: 1. Pap smear was performed. 2. Breast awareness was discussed. 3. Screening mammogram will be due in March 2018. An order slip was given to the patient for this. 4. Osteoporosis prevention was discussed. 5. She will return in one year.
== END ==
LOC: WWCWWP 10:47
PROVIDERS: ATTEND Obstetrics & Gynecology
DX: Z53.9 Procedure and treatment not carried out, unspecified reason (principal)

== ENCOUNTER → 2017-12-14 | Outpatient (CLI) | payer OTHER ==
--- NOTE | 2017-12-14 19:38 | PN ---
PROGRESS NOTE This is a 47-year-old female patient diagnosed having obstructive sleep apnea back in 2011. Her disease at that time was moderate to severe with an AHI of 24, and back then she used to weigh around 180 to 190 pounds. Note that the patient was treated with CPAP therapy back then at a pressure of 10 cm of water and she was doing well. She ultimately underwent a gastric sleeve procedure at [facility] and she lost around 50 pounds. Currently she is down to 150.8 pounds. She has quit using the CPAP, knowing that the treatment itself has become uncomfortable and she does not have a good mask seal on her face. As such, she is off treatment for now. She is going to bed around 10 p.m., wakes up at 6 a.m. in the morning, and she is averaging around 8 hours of sleep and she is very comfortable. No major hypersomnia or sleepiness during the day. She is wondering if there is any need for ongoing CPAP therapy, especially with her ongoing weight loss. She still has some mild soft snoring. Otherwise, no tiredness or sleepiness during the day. The rest of the comorbidities include COPD, coronary artery disease, and the patient is an ex-smoker. REVIEW OF SYSTEMS: Twelve-point review of systems was done. No chronic aches or pains. She is taking occasionally [place] for pain control and Xanax for anxiety. Patient is on Paxil 25 mg p.o. 2 tablets a day. No hypersomnia or sleepiness. No history of any motor vehicle accidents because of feeling drowsy or sleepy. No chest pain. No palpitations. No heartburn. She plateaued in terms of her weight at 150 pounds. PHYSICAL EXAMINATION: Blood pressure is 116/67, pulse 69, respirations 16, temperature 98.3, saturation 98% on room air. Weight is 150. Height is 60 inches. Eddington score is 9. GENERAL APPEARANCE: Calm, comfortable. Head is atraumatic, normocephalic. Neck is short, supple. Crowding of posterior pharynx is present. No goiter or neck masses. LUNGS: Clear to auscultation. Heart sounds are regular rate and rhythm. Normal S1, S2. No S3, S4. No murmurs. ABDOMEN: Soft, nontender. No organomegaly. EXTREMITIES: No edema. No cyanosis or clubbing. IMPRESSION: 1. Symptomatic obstructive sleep apnea with an AHI of 24. The patient has lost around 50 pounds following gastric sleeve procedure. 2. History of obstructive sleep apnea with an AHI of 24 and previous treatment with a CPAP pressure of 10, currently not undergoing any treatment. 3. Coronary artery disease. 4. Chronic obstructive pulmonary disease. PLAN: Proceed with a home sleep study to assess for any residual obstructive sleep apnea. May consider stopping the treatment if the patient's home sleep study comes back negative for any significant obstructive sleep apnea. Will continue to follow. MMNORAL / IJN: [id number] /
== END ==
LOC: SLEEP 14:56
PROVIDERS: ATTEND Internal Medicine Critical Care Medicine
DX: G47.33 Obstructive sleep apnea (adult) (pediatric) (principal); I25.10 Atherosclerotic heart disease of native coronary artery without angina pectoris; J44.9 Chronic obstructive pulmonary disease, unspecified; Z99.89 Dependence on other enabling machines and devices; Z87.891 Personal history of nicotine dependence

== ENCOUNTER 2017-12-26 17:34 | Observation (INO) | payer OTHER ==
[2017-12-26] MEDS ORDERED: NITROGLYCERIN SL TABS 0.4 MG TAB SUBLINGUAL STA ×2 (18:06)
[2017-12-26] MEDS ORDERED: ASPIRIN 81 MG PO STA (18:06)
--- NOTE | 2017-12-26 18:08 | ED ---
General Adult HPI - General Chief complaint: Chest Pain Stated complaint: chest pain Time Seen by Provider: 12/26/17 17:57 Source: patient, RN notes reviewed Mode of arrival: wheelchair Limitations: no limitations - History of Present Illness Initial comments: Patient is a pleasant 47-year-old female presenting to the emergency department with complaints of chest discomfort. Onset was this morning. Discomfort has been persistent. Discomfort feels a pressure in the left chest. Patient has had some nausea. No dyspnea or diaphoresis. No history of similar symptoms previously. - Related Data Home Medications Medication Instructions Recorded Confirmed Fluticasone/Salmeterol [Advair 1 puff INHALATION RT-BID 03/24/15 12/26/17 500-50 Diskus] PARoxetine HCL [Paxil Cr] 25 mg PO BID 03/24/15 12/26/17 Hydrocodone/Acetaminophen [[place] 1 tab PO TID PRN 02/14/16 12/26/17 10-325] Cyclobenzaprine [Flexeril] 5 mg PO TID PRN 06/11/17 12/26/17 Aspirin EC [Ecotrin Low Dose] 324 mg PO DAILY PRN 12/26/17 12/26/17 Clindamycin HCl 300 mg PO QID 12/26/17 12/26/17 Allergies Allergy/AdvReac Type Severity Reaction Status Date / Time Penicillins Allergy Rash/Hives Verified 12/26/17 17:46 pollen extracts Allergy Dyspnea Verified 12/26/17 17:46 shellfish derived [Shellfish] Allergy Anaphylaxis Verified 12/26/17 17:46 Iodinated Contrast- Oral and AdvReac Rash/Hives Verified 12/26/17 17:46 IV Dye Review of Systems ROS Statement: Those systems with pertinent positive or pertinent negative responses have been documented in the HPI. ROS Other: All systems not noted in ROS Statement are negative. Constitutional: Denies: fever Eyes: Denies: eye pain ENT: Denies: ear pain Respiratory: Denies: cough Cardiovascular: Reports: chest pain Endocrine: Denies: fatigue Gastrointestinal: Reports: nausea. Denies: vomiting Genitourinary: Denies: dysuria Musculoskeletal: Denies: back pain Skin: Denies: rash Neurological: Denies: weakness Past Medical History Past Medical History: Asthma, COPD, Diabetes Mellitus, Eye Disorder, GERD/Reflux , Pneumonia, Sleep Apnea/CPAP/BIPAP Additional Past Medical History / Comment(s): cerbation. Other HX: NIDDM thype II, glaucoma bilaterally, tachycardia, AKIRA with CPAP, bronchitis, has O2 at home which she uses prn at 2L/NC . 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 History of Any Multi-Drug Resistant Organisms: None Reported Past Surgical History: Bariatric Surgery, Section, Tubal Ligation Additional Past Surgical History / Comment(s): cyst removal under right breast, x 2. gastric sleeve Past Anesthesia/Blood Transfusion Reactions: No Reported Reaction Past Psychological History: Anxiety, Depression Smoking Status: Former smoker Past Alcohol Use History: None Reported Past Drug Use History: None Reported - Past Family History Mother History Unknown: Yes Family Medical History: Cancer, COPD Additional Family Medical History / Comment(s): Mother is alive and 74 yrs old. She also has a paternal aunt with breast cancer. Father History Unknown: Yes Family Medical History: COPD, Myocardial Infarction ([place]), Vascular Disorder Additional Family Medical History / Comment(s): Father at age 64yrs. General Exam Limitations: no limitations General appearance: alert, in no apparent distress Head exam: Present: atraumatic Eye exam: Present: normal appearance, PERRL ENT exam: Present: normal oropharynx Neck exam: Present: normal inspection Respiratory exam: Present: normal lung sounds bilaterally. Absent: chest wall tenderness Cardiovascular Exam: Present: regular rate, normal rhythm Expanded Peripheral pulses: 2+: Radial (R), Radial (L), Posterior Tibialis (R), Posterior Tibialis (L) GI/Abdominal exam: Present: soft. Absent: tenderness Extremities exam: Present: normal inspection. Absent: pedal edema, calf tenderness Neurological exam: Present: alert Psychiatric exam: Present: normal affect, normal mood Skin exam: Present: normal color Course Vital Signs 12/26/17 12/26/17 12/26/17 17:37 18:46 20:51 Temperature 98.4 F Pulse Rate 71 78 58 L Respiratory 18 16 18 Rate Blood Pressure 123/85 112/62 116/63 O2 Sat by Pulse 98 97 100 Oximetry EKG Findings - EKG Comments: EKG Findings:: Normal sinus rhythm 65. CT 160. QRS 90. QT 388. QTC 43. Left axis. Normal QRS. No acute ST change. Medical Decision Making - Medical Decision Making Patient reevaluated and resting comfortably in bed. Patient updated on results and plan. Case discussed in detail with Dr. rosales, covering for Dr. odonnell who will admit. Patient is symptom-free following 3 nitroglycerin. - Lab Data Result diagrams: 12/26/17 17:50 12/26/17 17:50 Lab Results 12/26/17 12/26/17 12/26/17 Range/Units 17:50 17:50 17:50 WBC 9.3 (3.8-10.6) k/uL RBC 5.33 (3.80-5.40) m/uL Hgb 15.7 (11.4-16.0) gm/dL Hct 47.9 H (34.0-46.0) % MCV 89.8 (80.0-100.0) fL MCH 29.4 (25.0-35.0) pg MCHC 32.7 (31.0-37.0) g/dL RDW 12.9 (11.5-15.5) % Plt Count 288 (150-450) k/uL Neutrophils % 59 % Lymphocytes % 27 % Monocytes % 6 % Eosinophils % 4 % Basophils % 1 % Neutrophils # 5.5 (1.3-7.7) k/uL Lymphocytes # 2.5 (1.0-4.8) k/uL Monocytes # 0.6 (0-1.0) k/uL Eosinophils # 0.4 (0-0.7) k/uL Basophils # 0.1 (0-0.2) k/uL PT (9.0-12.0) sec INR (<1.2) APTT (22.0-30.0) sec Sodium 141 (137-145) mmol/L Potassium 4.7 (3.5-5.1) mmol/L Chloride 106 (98-107) mmol/L Carbon Dioxide 27 (22-30) mmol/L Anion Gap 8 mmol/L BUN 12 (7-17) mg/dL Creatinine 0.60 (0.52-1.04) mg/dL Est GFR (CKD-EPI)AfAm >90 (>60 ml/min/1.73 sqM) Est GFR (CKD-EPI)NonAf >90 (>60 ml/min/1.73 sqM) Glucose 87 (74-99) mg/dL Calcium 10.1 (8.4-10.2) mg/dL Magnesium 2.0 (1.6-2.3) mg/dL Total Bilirubin 0.8 (0.2-1.3) mg/dL AST 26 (14-36) U/L ALT 31 (9-52) U/L Alkaline Phosphatase 113 (38-126) U/L Total Creatine Kinase 25 L (30-135) U/L CK-MB (CK-2) 0.3 (0.0-2.4) ng/mL CK-MB (CK-2) Rel Index 1.2 Troponin I <0.012 (0.000-0.034) ng/mL Total Protein 7.1 (6.3-8.2) g/dL Albumin 4.4 (3.5-5.0) g/dL 12/26/17 Range/Units 17:50 WBC (3.8-10.6) k/uL RBC (3.80-5.40) m/uL Hgb (11.4-16.0) gm/dL Hct (34.0-46.0) % MCV (80.0-100.0) fL MCH (25.0-35.0) pg MCHC (31.0-37.0) g/dL RDW (11.5-15.5) % Plt Count (150-450) k/uL Neutrophils % % Lymphocytes % % Monocytes % % Eosinophils % % Basophils % % Neutrophils # (1.3-7.7) k/uL Lymphocytes # (1.0-4.8) k/uL Monocytes # (0-1.0) k/uL Eosinophils # (0-0.7) k/uL Basophils # (0-0.2) k/uL PT 9.7 (9.0-12.0) sec INR 1.0 (<1.2) APTT 25.1 (22.0-30.0) sec Sodium (137-145) mmol/L Potassium (3.5-5.1) mmol/L Chloride (98-107) mmol/L Carbon Dioxide (22-30) mmol/L Anion Gap mmol/L BUN (7-17) mg/dL Creatinine (0.52-1.04) mg/dL Est GFR (CKD-EPI)AfAm (>60 ml/min/1.73 sqM) Est GFR (CKD-EPI)NonAf (>60 ml/min/1.73 sqM) Glucose (74-99) mg/dL Calcium (8.4-10.2) mg/dL Magnesium (1.6-2.3) mg/dL Total Bilirubin (0.2-1.3) mg/dL AST (14-36) U/L ALT (9-52) U/L Alkaline Phosphatase (38-126) U/L Total Creatine Kinase (30-135) U/L CK-MB (CK-2) (0.0-2.4) ng/mL CK-MB (CK-2) Rel Index Troponin I (0.000-0.034) ng/mL Total Protein (6.3-8.2) g/dL Albumin (3.5-5.0) g/dL - Radiology Data Radiology results: image reviewed (Chest x-ray shows no acute process) Disposition Clinical Impression: Chest pain Disposition: ADMITTED IP TO THIS [facility] Referrals: Julio Acosta MD [Primary Care Provider] - 1-2 days Decision Time: 21:32
[2017-12-26] MEDS: NITROGLYCERIN SL TABS 0.4 MG TAB SUBLINGUAL STA ×3 (18:29→18:45)
--- NOTE | 2017-12-26 18:35 | XR ---
EXAMINATION TYPE: XR chest 2V DATE OF EXAM: 12/26/2017 COMPARISON: 06/11/17 chest radiograph HISTORY: Chest pain TECHNIQUE: Frontal and lateral views of the chest are obtained. FINDINGS: There is no focal air space opacity, pleural effusion, or pneumothorax seen. The cardiac silhouette size is within unchanged. Incidental note is made of a right-sided aortic arch. The osseou s structures are unchanged. IMPRESSION: No acute cardiopulmonary process. No significant interval change.
[2017-12-26 20:14] LABS: Basophils # (A) 0.1 k/uL (0-0.2); Basophils % (A) 1 %; Eosinophils # (A) 0.4 k/uL (0-0.7); Eosinophils % (A) 4 %; HCT 47.9 % (34.0-46.0); HGB 15.7 gm/dL (11.4-16.0); Lymphocytes # (A) 2.5 k/uL (1.0-4.8); Lymphocytes % (A) 27 %; MCH 29.4 pg (25.0-35.0); MCHC 32.7 g/dL (31.0-37.0); MCV 89.8 fL (80.0-100.0); Mean Platelet Volume 7.8; Monocytes # (A) 0.6 k/uL (0-1.0); Monocytes % (A) 6 %; Neutrophils # (A) 5.5 k/uL (1.3-7.7); Neutrophils % (A) 59 %; Platelet Count 288 k/uL (150-450); RBC 5.33 m/uL (3.80-5.40); RDW 12.9 % (11.5-15.5); WBC 9.3 k/uL (3.8-10.6)
[2017-12-26 20:27] LABS: Partial Thromboplastin Time 25.1 sec (22.0-30.0); Prothrombin Time 9.7 sec (9.0-12.0)
[2017-12-26 20:29] LABS: ALT 31 U/L (9-52); AST 26 U/L (14-36); Albumin 4.4 g/dL (3.5-5.0); Alkaline Phosphatase 113 U/L (38-126); Anion Gap 8 mmol/L; Blood Urea Nitrogen 12 mg/dL (7-17); Calcium 10.1 mg/dL (8.4-10.2); Carbon Dioxide 27 mmol/L (22-30); Chloride 106 mmol/L (98-107); Glucose 87 mg/dL (74-99); Potassium 4.7 mmol/L (3.5-5.1); Sodium 141 mmol/L (137-145); Total Bilirubin 0.8 mg/dL (0.2-1.3); Total Protein 7.1 g/dL (6.3-8.2)
[2017-12-26 20:30] LABS: Creatine Kinase 25 U/L (30-135)
[2017-12-26 20:43] LABS: Creatine Kinase MB 0.3 ng/mL (0.0-2.4); Troponin I <0.012 ng/mL (0.000-0.034)
[2017-12-26] MEDS ORDERED: NITROGLYCERIN SL TABS 0.4 MG TAB SUBLINGUAL PRN (21:33)
[2017-12-26 22:11] VITALS: BMI 29.7
[2017-12-26] MEDS: NITROGLYCERIN OINT 1 INCH/GM PACKET TOPICAL SCH (23:10)
[2017-12-27 01:29] LABS: Creatine Kinase 21 U/L (30-135)
[2017-12-27 01:43] LABS: Creatine Kinase MB 0.2 ng/mL (0.0-2.4); Troponin I <0.012 ng/mL (0.000-0.034)
[2017-12-27] MEDS: NITROGLYCERIN OINT 1 INCH/GM PACKET TOPICAL SCH (05:25)
[2017-12-27 08:00] LABS: Creatine Kinase 20 U/L (30-135)
[2017-12-27 08:06] LABS: Cholesterol 234 mg/dL (<200); HDL Cholesterol 50 mg/dL (40-60); LDL Cholesterol,Calculated 165 mg/dL (0-99); Triglycerides 96 mg/dL (<150)
[2017-12-27 08:13] LABS: Creatine Kinase MB 0.4 ng/mL (0.0-2.4); Troponin I <0.012 ng/mL (0.000-0.034)
[2017-12-27] MEDS ORDERED: ASPIRIN 325 MG TAB PO SCH (09:00)
[2017-12-27] MEDS ORDERED: ATORVASTATIN 20 MG TAB PO SCH (10:00)
--- NOTE | 2017-12-27 10:03 | P.CRDCN ---
History of Present Illness History of present illness: Mrs. Ashraf is a pleasant 39-year-old female past medical history significant for asthma, COPD, diabetes, obstructive sleep apnea, recent gastric bypass March 2017 and gastroesophageal reflux disease. She is also a former smoker, she quit 5 months ago. She denies history of coronary artery disease. She follows with Dr. Corado in the office. We have been asked to see her in consultation for symptoms of chest discomfort. She woke up yesterday morning with a discomfort under the left breast radiating around to the left upper back region. She states she woke up feeling this discomfort and was also short of breath, dizzy and diaphoretic off-and-on. The symptoms persisted for the most part throughout the day with no specific aggravating or alleviating factors. The pain was not associated with movement or deep inspiration. She denies coughing, fever or chills. She denies associated palpitations, nausea or vomiting. The pain did not radiate down into the arm, neck or jaw. She denies PND or orthopnea. EKG reveals sinus mechanism with no acute ST or T wave abnormalities noted. Chest x-ray is negative for an acute cardiopulmonary process. Laboratory data reviewed, hemoglobin 15.7, platelets 288, d-dimer 0.18, sodium 141, potassium 4.7, magnesium 2.0, cardiac enzymes negative 3, LDL 165, HDL 50 total cholesterol 234. Current medications include Paxil, [place], Advil, Flexeril and clindamycin. Most recent stress test performed August 2016 stress echocardiogram was negative for reversible cardiac ischemia. Review of Systems At the time of my exam: CONSTITUTIONAL: Denies fever. Denies chills. EYES: Denies blurred vision. Denies vision changes. Denies eye pain. EARS, NOSE, MOUTH & THROAT: Denies headache. Denies sore throat. Denies ear pain. CARDIOVASCULAR: Denies chest pain. Denies shortness of breath. Denies orthopnea. Denies PND. Denies palpitations. RESPIRATORY: Denies cough. GASTROINTESTINAL: Denies abdominal pain. Denies diarrhea. Denies constipation. Denies nausea. Denies vomiting. MUSCULOSKELETAL: Complains of pain in the left scapular region. INTEGUMENTARY: Denies pruitis. Denies rash. NEUROLOGIC: Denies numbness. Denies tingling. Denies weakness. PSYCHIATRIC: Denies anxiety. Denies depression. ENDOCRINE: Denies fatigue. Denies weight change. Denies polydipsia. Denies polyurina. GENITOURINARY: Denies burning, hematuria or urgency with micturation. HEMATOLOGIC: Denies history of anemia. Denies bleeding. Past Medical History Past Medical History: Asthma, COPD, Diabetes Mellitus, Eye Disorder, GERD/Reflux , Pneumonia, Sleep Apnea/CPAP/BIPAP Additional Past Medical History / Comment(s): cerbation. Other HX: NIDDM thype II, glaucoma bilaterally, tachycardia, AKIRA with CPAP, bronchitis, has O2 at home which she uses prn at 2L/NC . 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 History of Any Multi-Drug Resistant Organisms: None Reported Past Surgical History: Bariatric Surgery, Section, Tubal Ligation Additional Past Surgical History / Comment(s): cyst removal under right breast, x 2. gastric sleeve Past Anesthesia/Blood Transfusion Reactions: No Reported Reaction Smoking Status: Former smoker - Past Family History Mother History Unknown: Yes Family Medical History: Cancer, COPD Additional Family Medical History / Comment(s): Mother is alive and 74 yrs old. She also has a paternal aunt with breast cancer. Father History Unknown: Yes Family Medical History: COPD, Myocardial Infarction ([place]), Vascular Disorder Additional Family Medical History / Comment(s): Father at age 64yrs. Medications and Allergies Home Medications Medication Instructions Recorded Confirmed Type Fluticasone/Salmeterol [Advair 1 puff INHALATION RT-BID 03/24/15 12/26/17 History 500-50 Diskus] PARoxetine HCL [Paxil Cr] 25 mg PO BID 03/24/15 12/26/17 History Hydrocodone/Acetaminophen [[place] 1 tab PO TID PRN 02/14/16 12/26/17 History 10-325] Cyclobenzaprine [Flexeril] 5 mg PO TID PRN 06/11/17 12/26/17 History Clindamycin HCl 300 mg PO QID 12/26/17 12/26/17 History Allergies Allergy/AdvReac Type Severity Reaction Status Date / Time Penicillins Allergy Rash/Hives Verified 12/26/17 22:02 pollen extracts Allergy Dyspnea Verified 12/26/17 22:02 shellfish derived [Shellfish] Allergy Anaphylaxis Verified 12/26/17 22:02 Iodinated Contrast- Oral and AdvReac Rash/Hives Verified 12/26/17 22:02 IV Dye Physical Exam Vitals: Vital Signs Temp Pulse Pulse Resp BP BP Pulse Ox 12/27/17 04:00 98.3 F 66 18 99/64 96 12/27/17 00:00 98.4 F 63 18 116/74 100 12/26/17 20:51 58 L 18 116/63 100 12/26/17 18:46 78 16 112/62 97 12/26/17 17:37 98.4 F 71 18 123/85 98 Intake and Output 12/26/17 12/27/17 12/27/17 22:59 06:59 14:59 Intake Total 20 Balance 20 Intake: Amount of Fluid Infused ( 20 ml) Other: # Voids 1 Weight 66.7 kg Blood pressure 98/63 heart rate 72 afebrile maintaining oxygen saturation on room air GENERAL: This is a 47-year-old female in no apparent distress at the time of my examination. HEENT: Head is atraumatic, normocephalic. Pupils are equal, round. Sclerae anicteric. Conjunctivae are clear. Mucous membranes of the mouth are moist. Neck is supple. There is no jugular venous distention. No carotid bruit is heard. LUNGS: Clear to auscultation no wheezes, rales or rhonchi. No chest wall tenderness is noted on palpation or with deep breathing. HEART: Regular rate and rhythm without murmurs, rubs or gallops. S1 and S2 heard. ABDOMEN: Soft, nontender. Bowel sounds are heard. No organomegaly noted. EXTREMITIES: No evidence of peripheral edema and no calf tenderness noted. VASCULAR: Radial and dorsalis pedis pulses palpated, no evidence of clubbing. NEUROLOGIC: Patient is awake, alert and oriented x3. Results 12/26/17 17:50 12/26/17 17:50 Cardiac Enzymes 12/26/17 12/26/17 12/27/17 Range/Units 17:50 17:50 00:31 AST 26 (14-36) U/L CK-MB (CK-2) 0.3 0.2 (0.0-2.4) ng/mL Troponin I <0.012 <0.012 (0.000-0.034) ng/mL Coagulation 12/26/17 Range/Units 17:50 PT 9.7 (9.0-12.0) sec APTT 25.1 (22.0-30.0) sec Lipids 12/27/17 Range/Units 06:18 Triglycerides 96 (<150) mg/dL Cholesterol 234 H (<200) mg/dL HDL Cholesterol 50 (40-60) mg/dL CBC 12/26/17 Range/Units 17:50 WBC 9.3 (3.8-10.6) k/uL RBC 5.33 (3.80-5.40) m/uL Hgb 15.7 (11.4-16.0) gm/dL Hct 47.9 H (34.0-46.0) % Plt Count 288 (150-450) k/uL Comprehensive Metabolic Panel 12/26/17 Range/Units 17:50 Sodium 141 (137-145) mmol/L Potassium 4.7 (3.5-5.1) mmol/L Chloride 106 (98-107) mmol/L Carbon Dioxide 27 (22-30) mmol/L BUN 12 (7-17) mg/dL Creatinine 0.60 (0.52-1.04) mg/dL Glucose 87 (74-99) mg/dL Calcium 10.1 (8.4-10.2) mg/dL AST 26 (14-36) U/L ALT 31 (9-52) U/L Alkaline Phosphatase 113 (38-126) U/L Total Protein 7.1 (6.3-8.2) g/dL Albumin 4.4 (3.5-5.0) g/dL Current Medications Generic Name Dose Route Start Last Admin Trade Name Freq PRN Reason Stop Dose Admin Aspirin 325 mg 12/27/17 09:00 Aspirin PO DAILY CANDIDA Nitroglycerin 1 inch 12/27/17 00:00 12/27/17 05:25 Nitro-Bid Oint TOPICAL Not Given Q6HR CANDIDA Nitroglycerin 0.4 mg 12/26/17 21:33 12/27/17 07:21 Nitrostat SUBLINGUAL 0.4 mg Q5M PRN Administration Chest Pain Intake and Output 12/26/17 12/27/17 12/27/17 22:59 06:59 14:59 Intake Total 20 Balance 20 Intake: Amount of Fluid Infused ( 20 ml) Other: # Voids 1 Weight 66.7 kg 12/26/17 17:50 12/26/17 17:50 Assessment and Plan Assessment: ASSESSMENT Chest pain, atypical. An acute coronary event has been ruled out. Pain is not related to movement of her arm or torso, however is mildly tender in left scapular region on palpation. Diabetes mellitus Dyslipidemia Former nicotine dependence PLAN Obtain 2D echocardiogram and doppler study to assess cardiac structure and function. Perform stress echocardiogram to assess for stress induced cardiac ischemia. Initiate her on atorvastatin 20 mg daily for elevated LDL. If stress test is normal she is stable from a cardiac perspective. Thank you kindly for this consultation. Nurse Practitioner note has been reviewed, I agree with a documented findings and plan of care. Patient was seen and examined.
--- NOTE | 2017-12-27 11:28 | ECHOS ---
STRESS ECHOCARDIOGRAM DATE OF SERVICE: 12/27/2017 INDICATIONS: Chest pain. MEDICATIONS: BASELINE HEART RATE: 61 BASELINE BLOOD PRESSURE: 151/63 MAXIMUM HEART RATE: 146 MAXIMUM BLOOD PRESSURE: 218/87 85% MPHR: 146 100% MPHR: 172 METS: 9 MAXIMUM STAGE REACHED: III TOTAL EXERCISE TIME: 8 minutes CLINICAL INFORMATION: Baseline EKG shows sinus rhythm, left axis deviation. Patient exercised on Reza protocol for a total of 8 minutes achieving 9 METs, 85% of predicted maximal heart rate without chest pain or diagnostic ST-segment depression. Baseline echo shows normal left ventricular size, wall motion and systolic function. Postexercise, there is normal hyperdynamic response of all segments of myocardium noted. CONCLUSIONS: 1. Good exercise tolerance. 2. Negative stress test by EKG criteria. 3. Negative stress echo. MMODL / IJN: [id number] /
--- NOTE | 2017-12-27 11:31 | ECHOF ---
Referral Reason:cp MEASUREMENTS -------- HEIGHT: 149.9 cm WEIGHT: 66.7 kg BP: 151/63 RVIDd: 2.8 cm (< 3.3) IVSd: 1.1 cm (0.6 - 1.1) LVIDd: 4.5 cm (3.9 - 5.3) LVPWd: 1.0 cm (0.6 - 1.1) IVSs: 1.3 cm LVIDs: 3.2 cm LVPWs: 1.4 cm LA Diam: 3.3 cm (2.7 - 3.8) LAESV Index (A-L): 20.38 ml/m Ao Diam: 2.7 cm (2.0 - 3.7) AV Cusp: 2.0 cm (1.5 - 2.6) MV EXCURSION: 21.150 mm (> 18.000) MV EF SLOPE: 76 mm/s (70 - 150) EPSS: 0.6 cm MV E Isaiah: 0.64 m/s MV DecT: 224 ms MV A Isaiah: 0.76 m/s MV E/A Ratio: 0.84 FINDINGS -------- Sinus rhythm. This was a technically excellent study. The left ventricular size is normal. Left ventricular wall thickness is normal. Overall left vent ricular systolic function is normal with, an EF between 60 - 65 %. The right ventricle is normal in size. Normal LA size by volume 22+/-6 ml/m2. The right atrium is normal in size. The aortic valve is trileaflet and appears structurally normal. There is trace to mild mitral regurgitation. The tricuspid valve appears structurally normal. Trace/mild (physiologic) pulmonic regurgitation. The aortic root size is normal. Normal inferior vena cava with normal inspiratory collapse consistent with estimated right atrial pre ssure of 5 mmHg. There is no pericardial effusion. CONCLUSIONS -------- 1. Sinus rhythm. 2. This was a technically excellent study. 3. The left ventricular size is normal. 4. Left ventricular wall thickness is normal. 5. Overall left ventricular systolic function is normal with, an EF between 60 - 65 %. 6. The right ventricle is normal in size. 7. Normal LA size by volume 22+/-6 ml/m2. 8. The right atrium is normal in size. 9. The aortic valve is trileaflet and appears structurally normal. 10. There is trace to mild mitral regurgitation. 11. The tricuspid valve appears structurally normal. 12. Trace/mild (physiologic) pulmonic regurgitation. 13. The aortic root size is normal. 14. Normal inferior vena cava with normal inspiratory collapse consistent with estimated right atrial pressure of 5 mmHg. 15. There is no pericardial effusion. BOTTLING EQUIPMENT SALES REPRESENTATIVE: Sosa Josue RDCS
[2017-12-27 12:04] VITALS: PULSE 88; RESP 16; TEMP 98.3
[2017-12-27] MEDS ORDERED: CYCLOBENZAPRINE 5 MG TAB PO PRN (13:25)
[2017-12-27] MEDS ORDERED: HYDROcodone/APAP 10-325MG 1 EACH TAB PO PRN (13:25)
[2017-12-27] MEDS ORDERED: PARoxetine 20 MG TAB PO SCH (13:30)
--- NOTE | 2017-12-27 14:13 | HP ---
HISTORY AND PHYSICAL DATE OF ADMISSION: 12/26/2017 DATE OF SERVICE: 12/27/2017 PRESENTING COMPLAINT: Chest pain. HISTORY OF PRESENTING COMPLAINT: A pleasant 47-year-old patient of Dr. Acosta. Chronic stable medical conditions include COPD, diabetes, GERD, sleep apnea uses a CPAP machine, osteoarthritis in the back and neck, anxiety, depression. Patient woke up yesterday with pain in the left lateral chest wall, rather localized did not radiate. It was a constant dull pain, it lasted for a few hours. There was no aggravating or relieving factors. Patient did have some sweating and clamminess with the same. [place] a bit hot. No dizziness. No lightheadedness. There was no precordial pain. Patient has had no prior cardiac history. Because of patient's risk factors, patient decided to come in and she was admitted from the ER with a diagnosis of possible unstable angina and Cardiology was consulted. Patient's pain since then has relieved. REVIEW OF SYSTEMS: CONSTITUTIONAL: None. HEENT: None. Respiratory: Baseline with some short of breath. CARDIOVASCULAR: No precordial pain. GASTROINTESTINAL: Heartburn. GENITOURINARY: None. MUSCULOSKELETAL: Arthritic pain in the back, neck. DERMATOLOGICAL: None. HEMATOLOGICAL: None. LYMPHATIC: None. PSYCHIATRY: Anxiety, depression controlled. NEUROLOGICAL: None. PAST HISTORY: COPD, diabetes, GERD, obstructive sleep apnea uses CPAP, oxygen p.r.n., osteoarthritis of the back and neck, anxiety, depression. PAST SURGICAL HISTORY: Bariatric surgery, , tubal ligation, cyst removed from the right breast, C- section x2, gastric sleeve. PSYCH HISTORY: Anxiety, depression. SOCIAL HISTORY: , patient smoked for close to 30 years, stopped about 5 months ago. Denies any alcohol. FAMILY HISTORY: COPD, aunt had breast cancer. HOME MEDICATIONS: 1. Paxil 20 - 25 mg b.i.d. 2. [place] 10 one tablet t.i.d. p.r.n. 3. Advair 500/50 one puff b.i.d. 4. Flexeril 5 mg p.o. t.i.d. p.r.n. 5. Clindamycin 300 mg p.o. q.i.d. ALLERGIES: To PENICILLIN, POLLEN, SHELLFISH, IV IODINATED CONTRAST DYE. On examination, temperature 98.4, pulse 71, respiratory 18, blood pressure 122/85, pulse ox 98% on room air. GENERAL APPEARANCE: Well built, BMI 28.7, sitting up, comfortable. EYES: Pupils equal, conjunctivae normal. HEENT: External appearance of nose and ears normal. Oral cavity normal. NECK: JVD not raised. Mass not palpable. RESPIRATORY: Effort normal. LUNGS: Decreased breath sounds. CARDIOVASCULAR: First and second sounds, no edema. ABDOMEN: Soft, nontender. Liver and spleen not palpable. LYMPHATIC: No lymph node palpable. PSYCHIATRY: Alert and oriented x3, mood and affect normal. NEUROLOGICAL: Pupils equal, cranial nerves grossly intact. Power and sensation grossly intact. MUSCULOSKELETAL: No reproducible pain in the left chest wall. INVESTIGATION: White count 9.3, hemoglobin potassium 4.7, BUN and creatinine are normal, troponin x3 negative. LDL is 165. Chest x-ray film interpreted by me shows some fullness of the left mary. EKG tracing reviewed by me shows normal sinus rhythm. ASSESSMENT: 1. Left lateral chest wall pain in a patient whose cardiac risk factors include diabetes, ex-smoker. Presented with a bit noncardiac sounding pain, admitted with unstable angina to rule out a cardiac cause. 2. Chronic obstructive pulmonary disease in an ex-smoker. 3. Gastroesophageal reflux disease. 4. Obstructive sleep apnea uses CPAP machine. 5. Osteoarthritis in the spine. 6. Anxiety and depression, not otherwise specified. PLAN: Home medications will be resumed. Cardiology was consulted who ordered a stress test. Care was discussed with the patient. MMODL / IJN: [id number] /
[2017-12-27 16:25] VITALS: BP 97/62
[2017-12-27] MEDS ORDERED: SYMBICORT 160-4.5 MCG INHALER INHALATION SCH (20:00)
--- NOTE | 2017-12-28 05:10 | DS ---
DISCHARGE SUMMARY DATE OF ADMISSION: 12/26/2017 DATE OF DISCHARGE: 12/27/2017 FINAL DIAGNOSES: 1. Left lateral chest wall pain probably musculoskeletal. 2. Chronic obstructive pulmonary disease in an ex-smoker. 3. Gastroesophageal reflux disease. 4. Obstructive sleep apnea uses CPAP machine. 5. Primary osteoarthritis of the spine. 6. Anxiety/depression, not otherwise specified. HOSPITAL COURSE: This patient presented with left lateral chest pain. Troponins were negative. 2D echocardiogram did not show any wall motion abnormality. Stress echocardiogram negative for ischemia. The patient was seen by [facility] and okayed to be discharged. EXAM: Lungs are clear. Cardiovascular: 1st and 2nd sounds normal. DISCHARGE MEDICATIONS: 1. Advair 500/50 1 puff b.i.d. 2. Paxil CR 25 mg b.i.d. 3. [place] 10 one tablet t.i.d. p.r.n. 4. Flexeril 5 mg p.o. t.i.d. p.r.n. 5. Clindamycin, complete course from before. 6. Lipitor 20 mg a day. FOLLOWUP: Follow up with Dr. Anival Corado in 2 weeks, follow with Dr. Julio Acosta in [place] in 2 or [address] Acosta in [place]. MMODL / IJN: [id number] /
[2017-12-28] MEDS ORDERED: ASPIRIN 81 MG PO SCH (09:00)
== END 2017-12-27 15:05 | disposition home or self-care (01) ==
LOC: EC 17:34 → 3SUR 21:33 → 3OBS 12-27 07:52
PROVIDERS: ADMIT Hospitalist; ATTEND Hospitalist
DX: R07.89 Other chest pain (principal); J44.9 Chronic obstructive pulmonary disease, unspecified; K21.9 Gastro-esophageal reflux disease without esophagitis; Z99.81 Dependence on supplemental oxygen; M47.9 Spondylosis, unspecified; F32.9 Major depressive disorder, single episode, unspecified; F41.9 Anxiety disorder, unspecified; E11.9 Type 2 diabetes mellitus without complications; G47.33 Obstructive sleep apnea (adult) (pediatric); Z87.891 Personal history of nicotine dependence; Z82.5 Family history of asthma and other chronic lower respiratory diseases; Z80.3 Family history of malignant neoplasm of breast; Z79.51 Long term (current) use of inhaled steroids; Z79.899 Other long term (current) drug therapy; Z91.041 Radiographic dye allergy status; Z88.0 Allergy status to penicillin; Z91.013 Allergy to seafood; Z87.01 Personal history of pneumonia (recurrent); Z98.51 Tubal ligation status; Z98.84 Bariatric surgery status
CPT/HCPCS: 99285; 36415; 93005; 93306; 93351; 85379; 80061; 80053; 82550 ×2; 82553 ×2; 83735; 84484 ×2; 85025; 85610; 85730; 71046; G0378 ×2

== ENCOUNTER 2018-05-20 12:17 | Emergency (ER) | payer OTHER ==
[2018-05-20] MEDS ORDERED: methylPREDNISolone SOD SUCCI 125 MG/2 ML VIAL IV STA (12:49)
[2018-05-20] MEDS ORDERED: IPRATROPIUM-ALBUTEROL 3 ML NEB INHALATION STA (12:49)
--- NOTE | 2018-05-20 13:08 | ED ---
SOB HPI - General Chief Complaint: Shortness of Breath Stated Complaint: BRADY X 2 DAYS, Hx ASTHMA, COPD Time Seen by Provider: 05/20/18 12:39 Source: patient, RN notes reviewed Mode of arrival: ambulatory Limitations: no limitations - History of Present Illness Initial Comments: 48-year-old female sent emergency from chief complaint shortness of breath. Patient does have underlying COPD. Patient has been using her Ventolin inhaler more than usual. Patient states she has a nonproductive cough. Patient states that she's noticed increased wheezing. Patient also had mild nasal congestion. Denies any chest pain. Patient states she's also very anxious because her sister is in ICU currently. Patient states her anxiety is worsened usual. She does take Xanax currently. - Related Data Home Medications Medication Instructions Recorded Confirmed Fluticasone/Salmeterol [Advair 1 puff INHALATION RT-BID 03/24/15 05/20/18 500-50 Diskus] Hydrocodone/Acetaminophen [[place] 1 tab PO TID PRN 02/14/16 05/20/18 10-325] ALPRAZolam [Xanax] 0.25 mg PO DAILY PRN 05/20/18 05/20/18 Albuterol Nebulized [Ventolin 2.5 mg PO RT-TID 05/20/18 05/20/18 Nebulized] Diclofenac 0.1% Ophth Soln 1 drop OPHTHALMIC BID 05/20/18 05/20/18 [Voltaren 0.1% Ophth Soln] Previous Rx's Medication Instructions Recorded Azithromycin [Zithromax Z-pack] 0 mg PO DIRECTED #1 pack 05/20/18 predniSONE 50 mg PO DAILY #5 tab 05/20/18 Allergies Allergy/AdvReac Type Severity Reaction Status Date / Time Penicillins Allergy Rash/Hives Verified 05/20/18 14:09 pollen extracts Allergy Dyspnea Verified 05/20/18 14:09 shellfish derived [Shellfish] Allergy Anaphylaxis Verified 05/20/18 14:09 Iodinated Contrast- Oral and AdvReac Rash/Hives Verified 05/20/18 14:09 IV Dye Review of Systems ROS Statement: Those systems with pertinent positive or pertinent negative responses have been documented in the HPI. ROS Other: All systems not noted in ROS Statement are negative. Past Medical History Past Medical History: Asthma, COPD, Diabetes Mellitus, Eye Disorder, GERD/Reflux , Pneumonia, Sleep Apnea/CPAP/BIPAP Additional Past Medical History / Comment(s): cerbation. Other HX: NIDDM thype II, glaucoma bilaterally, tachycardia, AKIRA with CPAP, bronchitis, has O2 at home which she uses prn at 2L/NC . 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 History of Any Multi-Drug Resistant Organisms: None Reported Past Surgical History: Bariatric Surgery, Section, Tubal Ligation Additional Past Surgical History / Comment(s): cyst removal under right breast, x 2. gastric sleeve Past Anesthesia/Blood Transfusion Reactions: No Reported Reaction Past Psychological History: Anxiety, Depression Smoking Status: Current every day smoker Past Alcohol Use History: None Reported Past Drug Use History: None Reported - Past Family History Mother History Unknown: Yes Family Medical History: Cancer, COPD Additional Family Medical History / Comment(s): Mother is alive and 74 yrs old. She also has a paternal aunt with breast cancer. Father History Unknown: Yes Family Medical History: COPD, Myocardial Infarction ([place]), Vascular Disorder Additional Family Medical History / Comment(s): Father at age 64yrs. General Exam Limitations: no limitations General appearance: alert, in no apparent distress Head exam: Present: atraumatic, normocephalic, normal inspection Eye exam: Present: normal appearance, PERRL, EOMI. Absent: scleral icterus, conjunctival injection, periorbital swelling ENT exam: Present: normal exam, normal oropharynx, mucous membranes moist, TM's normal bilaterally, normal external ear exam Neck exam: Present: normal inspection, full ROM. Absent: tenderness, meningismus, lymphadenopathy Respiratory exam: Present: wheezes (Bilateral throughout). Absent: respiratory distress, rales, rhonchi, stridor Cardiovascular Exam: Present: normal rhythm, tachycardia, normal heart sounds. Absent: systolic murmur, diastolic murmur, rubs, gallop, clicks Neurological exam: Present: alert, oriented X3, CN II-XII intact Psychiatric exam: Present: anxious Skin exam: Present: warm, dry, intact, normal color. Absent: rash Course Vital Signs 05/20/18 05/20/18 05/20/18 12:24 12:47 13:30 Temperature 98.4 F Pulse Rate 116 H 78 Respiratory 20 22 Rate Blood Pressure 152/84 O2 Sat by Pulse 99 Oximetry 05/20/18 13:48 Temperature Pulse Rate 79 Respiratory Rate Blood Pressure O2 Sat by Pulse Oximetry Medical Decision Making - Medical Decision Making 48-year-old female presents emergency from for cough and cold-like symptoms. Patient has underlying COPD. Patient is improved after DuoNeb, IV steroids. She does have mild residual wheezing. Patient states she feels stable to go home on oral steroids. Patient will be discharged on prednisone, antibiotics. Return parameters were discussed. - Lab Data Result diagrams: 05/20/18 13:04 05/20/18 13:04 Lab Results 05/20/18 05/20/18 05/20/18 Range/Units 13:04 13:04 13:04 WBC 17.5 H (3.8-10.6) k/uL RBC 5.40 (3.80-5.40) m/uL Hgb 15.9 (11.4-16.0) gm/dL Hct 49.6 H (34.0-46.0) % MCV 91.9 (80.0-100.0) fL MCH 29.5 (25.0-35.0) pg MCHC 32.1 (31.0-37.0) g/dL RDW 13.1 (11.5-15.5) % Plt Count 302 (150-450) k/uL Neutrophils % 82 % Lymphocytes % 11 % Monocytes % 4 % Eosinophils % 0 % Basophils % 0 % Neutrophils # 14.3 H (1.3-7.7) k/uL Lymphocytes # 1.9 (1.0-4.8) k/uL Monocytes # 0.7 (0-1.0) k/uL Eosinophils # 0.1 (0-0.7) k/uL Basophils # 0.1 (0-0.2) k/uL Sodium 141 (137-145) mmol/L Potassium 5.2 H (3.5-5.1) mmol/L Chloride 110 H (98-107) mmol/L Carbon Dioxide 24 (22-30) mmol/L Anion Gap 7 mmol/L BUN 9 (7-17) mg/dL Creatinine 0.44 L (0.52-1.04) mg/dL Est GFR (CKD-EPI)AfAm >90 (>60 ml/min/1.73 sqM) Est GFR (CKD-EPI)NonAf >90 (>60 ml/min/1.73 sqM) Glucose 88 (74-99) mg/dL Calcium 10.1 (8.4-10.2) mg/dL Magnesium 2.2 (1.6-2.3) mg/dL Total Bilirubin 0.8 (0.2-1.3) mg/dL AST 22 (14-36) U/L ALT 16 (9-52) U/L Alkaline Phosphatase 108 (38-126) U/L Troponin I <0.012 (0.000-0.034) ng/mL Total Protein 7.6 (6.3-8.2) g/dL Albumin 4.3 (3.5-5.0) g/dL 05/20/18 14:27 EKG performed at 13:25 normal sinus rhythm with left axis deviation, incomplete right bundle, rate of 74 [place] 150 QRS 100 QT/QTC 368/408 Disposition Clinical Impression: COPD exacerbation Disposition: HOME SELF-CARE Condition: Stable Instructions: Acute Bronchitis (ED) Additional Instructions: Please return to the Emergency Department if symptoms worsen or any other concerns. Prescriptions: Azithromycin [Zithromax Z-pack] 0 mg PO DIRECTED #1 pack predniSONE 50 mg PO DAILY #5 tab Is patient prescribed a controlled substance at d/c from ED?: No Referrals: Julio Acosta MD [Primary Care Provider] - 1-2 days Time of Disposition: 14:28
--- NOTE | 2018-05-20 13:25 | XR ---
EXAMINATION TYPE: XR chest 2V DATE OF EXAM: 05/20/2018 COMPARISON: 12/26/2017. TECHNIQUE: PA and lateral views submitted. HISTORY: Chest pain FINDINGS: The lungs are clear and there is no pneumothorax, pleural effusion, or focal pneumonia. Right-sided aortic arch again noted. Heart size mildly prominent but stable. No overt failure. Hypertrophic and degenerative change of the spine. IMPRESSION: 1. Cardiomegaly 2. Right-sided aortic arch 3. Correlate for underlying COPD.
[2018-05-20 13:27] LABS: Basophils # (A) 0.1 k/uL (0-0.2); Basophils % (A) 0 %; Eosinophils # (A) 0.1 k/uL (0-0.7); Eosinophils % (A) 0 %; HCT 49.6 % (34.0-46.0); HGB 15.9 gm/dL (11.4-16.0); Lymphocytes # (A) 1.9 k/uL (1.0-4.8); Lymphocytes % (A) 11 %; MCH 29.5 pg (25.0-35.0); MCHC 32.1 g/dL (31.0-37.0); MCV 91.9 fL (80.0-100.0); Mean Platelet Volume 7.9; Monocytes # (A) 0.7 k/uL (0-1.0); Monocytes % (A) 4 %; Neutrophils # (A) 14.3 k/uL (1.3-7.7); Neutrophils % (A) 82 %; Platelet Count 302 k/uL (150-450); RDW 13.1 % (11.5-15.5); WBC 17.5 k/uL (3.8-10.6)
[2018-05-20 13:36] LABS: ALT 16 U/L (9-52); AST 22 U/L (14-36); Albumin 4.3 g/dL (3.5-5.0); Alkaline Phosphatase 108 U/L (38-126); Anion Gap 7 mmol/L; Blood Urea Nitrogen 9 mg/dL (7-17); Calcium 10.1 mg/dL (8.4-10.2); Carbon Dioxide 24 mmol/L (22-30); Chloride 110 mmol/L (98-107); Glucose 88 mg/dL (74-99); Magnesium 2.2 mg/dL (1.6-2.3); Sodium 141 mmol/L (137-145); Total Bilirubin 0.8 mg/dL (0.2-1.3); Total Protein 7.6 g/dL (6.3-8.2)
[2018-05-20 13:39] LABS: Potassium 5.2 mmol/L (3.5-5.1)
[2018-05-20 14:43] VITALS: BP 116/72; PULSE 81; RESP 20; TEMP 98.5
== END 2018-05-20 14:47 | disposition home or self-care (01) ==
LOC: EC 12:17
DX: J44.1 Chronic obstructive pulmonary disease with (acute) exacerbation (principal); R94.31 Abnormal electrocardiogram [ECG] [EKG]; R00.0 Tachycardia, unspecified; G47.33 Obstructive sleep apnea (adult) (pediatric); H40.9 Unspecified glaucoma; F41.9 Anxiety disorder, unspecified; F17.200 Nicotine dependence, unspecified, uncomplicated; Z88.0 Allergy status to penicillin; Z91.013 Allergy to seafood; Z91.041 Radiographic dye allergy status; Z91.048 Other nonmedicinal substance allergy status; Z79.1 Long term (current) use of non-steroidal anti-inflammatories (NSAID); Z79.51 Long term (current) use of inhaled steroids; Z79.899 Other long term (current) drug therapy; Z99.89 Dependence on other enabling machines and devices; Z99.81 Dependence on supplemental oxygen; Z82.5 Family history of asthma and other chronic lower respiratory diseases; Z82.49 Family history of ischemic heart disease and other diseases of the circulatory system
CPT/HCPCS: 36415; 94640; 93005; 80053; 83735; 84484; 85025; 71046; 99285; 96374; J2930

== ENCOUNTER → 2018-05-25 | Outpatient (CLI) | payer OTHER ==
[2018-05-25 17:43] LABS: Basophils % (A) 0 %; Eosinophils # (A) 0.1 k/uL (0-0.7); Eosinophils % (A) 0 %; HCT 48.3 % (34.0-46.0); HGB 15.3 gm/dL (11.4-16.0); Lymphocytes # (A) 3.8 k/uL (1.0-4.8); Lymphocytes % (A) 22 %; MCH 29.8 pg (25.0-35.0); MCHC 31.7 g/dL (31.0-37.0); MCV 94.1 fL (80.0-100.0); Mean Platelet Volume 7.4; Monocytes # (A) 0.7 k/uL (0-1.0); Monocytes % (A) 4 %; Neutrophils # (A) 12.1 k/uL (1.3-7.7); Neutrophils % (A) 71 %; Platelet Count 319 k/uL (150-450); RBC 5.13 m/uL (3.80-5.40); RDW 13.3 % (11.5-15.5); WBC 17.2 k/uL (3.8-10.6)
[2018-05-25 17:54] LABS: ALT 17 U/L (9-52); AST 13 U/L (14-36); Albumin 4.1 g/dL (3.5-5.0); Albumin/Globulin Ratio 1.4; Alkaline Phosphatase 106 U/L (38-126); Anion Gap 9 mmol/L; Blood Urea Nitrogen 14 mg/dL (7-17); Calcium 10.1 mg/dL (8.4-10.2); Carbon Dioxide 27 mmol/L (22-30); Chloride 107 mmol/L (98-107); Globulin 2.9 g/dL; Glucose 111 mg/dL (74-99); Sodium 143 mmol/L (137-145); Total Bilirubin 0.4 mg/dL (0.2-1.3)
== END | disposition home or self-care (01) ==
LOC: LABWHC1 17:08
PROVIDERS: ATTEND Physician Assistant
DX: E87.5 Hyperkalemia (principal); D72.829 Elevated white blood cell count, unspecified
CPT/HCPCS: 36415; 80053; 85025

== ENCOUNTER → 2018-05-25 | Outpatient (CLI) | payer OTHER ==
--- NOTE | 2018-05-25 11:43 | US ---
EXAMINATION TYPE: US thyroid st tissue head/neck DATE OF EXAM: 05/25/2018 COMPARISON: NONE CLINICAL HISTORY: M79.9 Soft tissue disorder, unspecified. Left palpable area submandibular for 6 months left submandibular area small solid non vascular nodule 0.4 x 0.2 x 0.6 cm . At palpable area right submandibular area scanned for comparison: wnl Few nonspecific oval hypoechoic lesions are identified at area of concern submandibular region, favor benign prominent but subcentimeter reactive lymph nodes. No worrisome fluid collection is present. I f symptoms persist or worsen with pain or enlargement would advise follow-up imaging with contrast-en hanced neck CT. IMPRESSION: As above
== END | disposition home or self-care (01) ==
LOC: RADUSWWP 10:46
PROVIDERS: ATTEND Family Medicine
DX: K11.8 Other diseases of salivary glands (principal); R59.9 Enlarged lymph nodes, unspecified
CPT/HCPCS: 76536

== ENCOUNTER → 2019-02-06 | Outpatient (CLI) | payer OTHER ==
[2019-02-06 16:23] LABS: Chol/HDL Ratio 3.68; LDL Cholesterol,Calculated 152.6 mg/dL (0.0-131.0); VLDL Calculation 16.4 mg/dL (5.00-40.00)
== END | disposition home or self-care (01) ==
LOC: LABWHC1 09:58
PROVIDERS: ATTEND Internal Medicine Interventional Cardiology
DX: E78.5 Hyperlipidemia, unspecified (principal)
CPT/HCPCS: 36415; 80061; 82550; 84450; 84460

== ENCOUNTER → 2019-03-15 | Outpatient (CLI) | payer OTHER ==
[2019-03-15 11:48] VITALS: BP 104/68; PULSE 75; RESP 18; TEMP 97.9; BMI 24.4
--- NOTE | 2019-03-15 12:39 | P.HPOB ---
History of Present Illness H&P Date: 03/15/19 Chief Complaint: The patient is here for her routine gynecologic exam and ma mmogram. This is a 49-year-old 012 with an LMP of January 2018. The patient is without gynecologic complaints. She is status post tubal ligation. Her last Pap smear done on 10/17/1917 showed low-grade MARK. High-risk HPV testing was negative. She had a colposcopic examination with biopsy done by Dr. Arroyo on 11/22/2017 which showed BRIDGETTE-1/LGSIL. Review of Systems The patient has lost 18 pounds over the last year. This is following her gastric sleeve bariatric surgery. She denies respiratory, cardiac, or G.I. problems. Past Medical History Past Medical History: Asthma, COPD, Diabetes Mellitus, Eye Disorder, GERD/Reflux, Pneumonia, Sleep Apnea/CPAP/BIPAP Additional Past Medical History / Comment(s): NIDDM type II(diet controlled following wt. loss), glaucoma bilaterally, tachycardia, AKIRA with CPAP, bronchitis, has O2 at home which she uses prn. 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 History of Any Multi-Drug Resistant Organisms: None Reported Past Surgical History: Bariatric Surgery, Section, Tubal Ligation Additional Past Surgical History / Comment(s): cyst removal under right breast, x 2. gastric sleeve Sx 2017. Past Anesthesia/Blood Transfusion Reactions: No Reported Reaction Past Psychological History: Anxiety, Depression Additional Psychological History / Comment(s): Pt resides with her spouse, daughter and grandson. She is normally independent. She uses no assistive device. She drives. She has O2 which she uses prn and a nebulizer and glucose monitor at home. Smoking Status: Current every day smoker (Half pack per day) Past Alcohol Use History: None Reported Additional Past Alcohol Use History / Comment(s): Pt states she started smoking in 1986 and quit 5 months ago. Past Drug Use History: None Reported Additional History: She has been since 1995. - Past Family History Mother History Unknown: Yes Family Medical History: Cancer, COPD Additional Family Medical History / Comment(s): Breast cancer. She also has a paternal aunt with breast cancer. Father History Unknown: Yes Family Medical History: COPD, Myocardial Infarction ([place]), Vascular Disorder Additional Family Medical History / Comment(s): Father at age 64yrs. Medications and Allergies Home Medications Medication Instructions Recorded Confirmed Type Fluticasone/Salmeterol [Advair 1 puff INHALATION RT-BID 03/24/15 03/15/19 History 500-50 Diskus] Hydrocodone/Acetaminophen [[place] 1 tab PO TID PRN 02/14/16 03/15/19 History 10-325] ALPRAZolam [Xanax] 0.25 mg PO DAILY PRN 05/20/18 03/15/19 History Albuterol Nebulized [Ventolin 2.5 mg PO RT-TID 05/20/18 03/15/19 History Nebulized] Rosuvastatin Calcium [Crestor] 5 mg PO DAILY 03/15/19 03/15/19 History Allergies Allergy/AdvReac Type Severity Reaction Status Date / Time Penicillins Allergy Rash/Hives Verified 03/15/19 11:48 pollen extracts Allergy Dyspnea Verified 03/15/19 11:48 shellfish derived [Shellfish] Allergy Anaphylaxis Verified 03/15/19 11:48 Iodinated Contrast Media AdvReac Rash/Hives Verified 03/15/19 11:48 Exam Vital Signs Temp Pulse Resp BP Pulse Ox 03/15/19 11:44 97.9 F 75 18 104/68 99 Intake and Output 03/14/19 03/15/19 03/15/19 22:59 06:59 14:59 Other: Weight 56.699 kg Height 5 feet 0 inches, weight 125 pounds, BMI 24.4. This is a well-developed well-nourished white female who is alert and oriented times 3 in no acute distress. HEENT: Within normal limits. NECK: Supple without mass or thyromegaly. CHEST AND LUNGS: Clear to auscultation. HEART: Regular rate and rhythm. BREASTS: Are without mass or discharge. AXILLARY EXAM: Negative for adenopathy. BACK: Negative for CVA tenderness. ABDOMEN: Soft, nontender, without palpable masses. PELVIC EXAM: Normal external genitalia with minimal atrophy. Cervix and vagina appear normal with mild atrophy. There is no unusual discharge. There is no evidence of prolapse. The uterus is midposition, nongravid size and nontender. There are no palpable adnexal masses or tenderness. RECTAL EXAM: Rectovaginal exam is negative for mass or tenderness and is negative for occult blood. EXTREMITIES: Nontender. IMPRESSION: 1. 49-year-old menopausal female with normal gynecologic exam. 2. History of low-grade MARK Pap smear and BRIDGETTE-1 on colposcopic biopsy. PLAN: 1. Pap smear with high-risk HPV testing(cotest) was obtained. Consider repeat colposcopy if ASCUS or greater, or if positive high-risk HPV testing. 2. Self breast awareness was discussed with the patient. 3. Screening mammogram will be done today. 4. Osteoporosis prevention was discussed. I have stressed the importance of adequate calcium, vitamin D and regular exercise. Recommended amounts of calcium and vitamin D were also discussed. I have recommended bone density testing next year because of her history of steroid use over the years for lung problems. She will do this next year. 5. I have recommended screening colonoscopy based on her age. She will discuss this with Dr. Acosta. 6. She was advised to return in one year for her annual well woman exam.
--- NOTE | 2019-03-17 10:09 | MM ---
Reason for exam: screening (asymptomatic). Last mammogram was performed 1 year and 11 months ago. History: Patient is postmenopausal. Family history of breast cancer in mother at age 60 and breast cancer in paternal aunt. Took hormonal contraceptives for 11 years beginning at age 15. Physical Findings: A clinical breast exam by your physician is recommended on an annual basis and results should be correlated with mammographic findings. MG 3D Screening Mammo W/Cad Bilateral CC and MLO view(s) were taken. Prior study comparison: April 26, 2017, bilateral MG 3d diag mammo w/cad DAMON. October 22, 2011, bilateral digital screening mammo w/CAD. There are scattered fibroglandular densities. No significant changes when compared with prior studies. ASSESSMENT: Benign, BI-RAD 2 RECOMMENDATION: Routine screening mammogram of both breasts in 1 year.
== END | disposition home or self-care (01) ==
LOC: WWCWWP 11:36
PROVIDERS: ATTEND Obstetrics & Gynecology
DX: Z12.31 Encounter for screening mammogram for malignant neoplasm of breast (principal)
CPT/HCPCS: 77063; 77067

== ENCOUNTER 2019-03-22 02:41 | Emergency (ER) | payer OTHER ==
[2019-03-22 02:54] VITALS: BP 146/82; PULSE 70; RESP 18; TEMP 98.2
--- NOTE | 2019-03-22 02:56 | ED ---
Anxiety HPI - General Chief Complaint: Anxiety Stated Complaint: Anxiety Time Seen by Provider: 03/22/19 02:56 Source: patient Mode of arrival: ambulatory - History of Present Illness Initial Comments: Fawn is a 49yo female who presents the emergency department today for evaluation of jaw pain, ear pain and generalized anxiety. Patient reports that on she had dental extraction and bone graft implantation for planned dental implant surgery. Patient states that since that time she's had pain in her TMJ and some pain in her ear. Patient reports only minimal dental pain and feels that the extraction site is healing well. Patient states that she's been taking Lindsay for the pain as prescribed but was advised she cannot take her regular Xanax while taking Lindsay therefore she hasn't had any Xanax since the procedure. Patient states she's been feeling very anxious, she's been prescribed Xanax for a number of years. Patient states that her last Lindsay was at 9 PM yesterday evening. She is taking 2-3 a day. denies any chest pain palpitation shortness of breath nausea vomiting change in bowel or bladder habits. She reports she is otherwise feeling well. - Related Data Home Medications: Home Medications Medication Instructions Recorded Confirmed Fluticasone/Salmeterol [Advair 1 puff INHALATION RT-BID 03/24/15 03/15/19 500-50 Diskus] Hydrocodone/Acetaminophen [[place] 1 tab PO TID PRN 02/14/16 03/15/19 10-325] ALPRAZolam [Xanax] 0.25 mg PO DAILY PRN 05/20/18 03/15/19 Albuterol Nebulized [Ventolin 2.5 mg PO RT-TID 05/20/18 03/15/19 Nebulized] Rosuvastatin Calcium [Crestor] 5 mg PO DAILY 03/15/19 03/15/19 Allergies/Adverse Reactions: Allergies Allergy/AdvReac Type Severity Reaction Status Date / Time Penicillins Allergy Rash/Hives Verified 03/22/19 02:53 pollen extracts Allergy Dyspnea Verified 03/22/19 02:53 shellfish derived [Shellfish] Allergy Anaphylaxis Verified 03/22/19 02:53 Iodinated Contrast Media AdvReac Rash/Hives Verified 03/22/19 02:53 Review of Systems ROS Statement: Those systems with pertinent positive or pertinent negative responses have been documented in the HPI. ROS Other: All systems not noted in ROS Statement are negative. Past Medical History Past Medical History: Asthma, COPD, Diabetes Mellitus, Eye Disorder, GERD/Reflux, Pneumonia, Sleep Apnea/CPAP/BIPAP Additional Past Medical History / Comment(s): NIDDM type II(diet controlled following wt. loss), glaucoma bilaterally, tachycardia, AKIRA with CPAP, bronchitis, has O2 at home which she uses prn. 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 History of Any Multi-Drug Resistant Organisms: None Reported Past Surgical History: Bariatric Surgery, Section, Tubal Ligation Additional Past Surgical History / Comment(s): cyst removal under right breast, x 2. gastric sleeve Sx 2017. Past Anesthesia/Blood Transfusion Reactions: No Reported Reaction Past Psychological History: Anxiety, Depression Smoking Status: Current every day smoker Past Alcohol Use History: None Reported Past Drug Use History: None Reported - Past Family History Mother History Unknown: Yes Family Medical History: Cancer, COPD Additional Family Medical History / Comment(s): Breast cancer. She also has a paternal aunt with breast cancer. Father History Unknown: Yes Family Medical History: COPD, Myocardial Infarction ([place]), Vascular Disorder Additional Family Medical History / Comment(s): Father at age 64yrs. General Exam - General Exam Comments Initial Comments: Physical Exam GENERAL: Patient is well-developed and well-nourished. Patient is nontoxic and well- hydrated and is in no distress. HENT: Normocephalic, Atraumatic. TMs normal Site of dental extraction is healing well with no erythema or signs of infection, bone graft is visible EYES: PERRL, EOMI PULMONARY: Unlabored respirations. No audible rales rhonchi or wheezing was noted. CARDIOVASCULAR: There is a regular rate and rhythm without any murmurs gallops or rubs. ABDOMEN: Soft and nontender with normal bowel sounds. SKIN: Skin is clear with no lesions or rashes and otherwise unremarkable. : Deferred NEUROLOGIC: Patient is alert and oriented x3. Moving all extremities spontaneously MUSCULOSKELETAL: Normal extremities with adequate strength and full range of motion. No lower extremity swelling or edema. No calf tenderness. PSYCHIATRIC: Normal psychiatric evaluation. Situational anxiety Limitations: no limitations Course Vital Signs 03/22/19 02:51 Temperature 98.2 F Pulse Rate 70 Respiratory 18 Rate Blood Pressure 146/82 O2 Sat by Pulse 99 Oximetry Medical Decision Making - Medical Decision Making The patient was seen and evaluated history is obtained from the patient History and physical exam are unremarkable, patient's been on long-term benzodiazepines and hasn't had any for 4 days because she was advised that she can't take any if she is taking Lindsay. Patient is taking Lindsay every 6-8 hours. She is awake alert and oriented. I advised the patient that she can take her regularly prescribed Xanax as long as it is 4 hours from taking him Lindsay and she waits another 4 to take an additional Lindsay. Patient's agreeable to this. At this time patient stable for discharge, questions pertaining care answered return parameters discussed patient discharged home in stable condition. Disposition Clinical Impression: Acute anxiety Disposition: HOME SELF-CARE Condition: Stable Instructions (If sedation given, give patient instructions): Generalized Anxiety Disorder (ED) Is patient prescribed a controlled substance at d/c from ED?: No Referrals: Julio Acosta MD [Primary Care Provider] - 1-2 days
[2019-03-22] MEDS ORDERED: QUEtiapine 200 MG TAB PO STA (03:17)
== END 2019-03-22 03:58 | disposition home or self-care (01) ==
LOC: EC 02:41
DX: F41.9 Anxiety disorder, unspecified (principal); K08.89 Other specified disorders of teeth and supporting structures; F32.9 Major depressive disorder, single episode, unspecified; J44.9 Chronic obstructive pulmonary disease, unspecified; E11.9 Type 2 diabetes mellitus without complications; H40.9 Unspecified glaucoma; G47.33 Obstructive sleep apnea (adult) (pediatric); F17.200 Nicotine dependence, unspecified, uncomplicated; Z79.51 Long term (current) use of inhaled steroids; Z79.899 Other long term (current) drug therapy; Z88.0 Allergy status to penicillin; Z91.013 Allergy to seafood; Z91.041 Radiographic dye allergy status; Z91.048 Other nonmedicinal substance allergy status; Z99.89 Dependence on other enabling machines and devices; Z99.81 Dependence on supplemental oxygen
CPT/HCPCS: 99283

== ENCOUNTER 2019-06-02 22:45 | Emergency (ER) | payer OTHER ==
[2019-06-02] MEDS ORDERED: predniSONE 20 MG TAB PO STA (23:27)
[2019-06-02] MEDS ORDERED: IPRATROPIUM-ALBUTEROL 3 ML NEB INHALATION STA (23:27)
--- NOTE | 2019-06-02 23:55 | XR ---
EXAMINATION TYPE: XR chest 2V DATE OF EXAM: 06/02/2019 COMPARISON: 05/20/2018 HISTORY: Cough TECHNIQUE: 2 views FINDINGS: There is no heart failure nor confluent pneumonic infiltrate. There is slight coarsening of the interstitial markings. There is right-sided aortic arch. Bony thorax appears intact. IMPRESSION: No active cardiopulmonary disease. No adverse change compared to old exam. No heart failu re.
--- NOTE | 2019-06-03 00:26 | ED ---
URI HPI - General Chief Complaint: Upper Respiratory Infection Stated Complaint: cough/congestion Time Seen by Provider: 06/02/19 23:00 Source: patient Mode of arrival: ambulatory Limitations: no limitations - History of Present Illness Initial Comments: Fawn is a 49-year-old female history of COPD who presents the ER for evaluation of cough and body aches. Patient states that this is a bad enough that she would've come to the hospital however her daughter who is 37 weeks also has symptoms and she brought her in for evaluation so thought she should get checked out as well. - Related Data Home Medications Medication Instructions Recorded Confirmed Fluticasone/Salmeterol [Advair 1 puff INHALATION RT-BID 03/24/15 03/15/19 500-50 Diskus] Hydrocodone/Acetaminophen [[place] 1 tab PO TID PRN 02/14/16 03/15/19 10-325] ALPRAZolam [Xanax] 0.25 mg PO DAILY PRN 05/20/18 03/15/19 Albuterol Nebulized [Ventolin 2.5 mg PO RT-TID 05/20/18 03/15/19 Nebulized] Rosuvastatin Calcium [Crestor] 5 mg PO DAILY 03/15/19 03/15/19 Previous Rx's Medication Instructions Recorded predniSONE [Deltasone] 40 mg PO DAILY 5 Days #10 tablet 06/03/19 Allergies Allergy/AdvReac Type Severity Reaction Status Date / Time Penicillins Allergy Rash/Hives Verified 06/02/19 22:52 pollen extracts Allergy Dyspnea Verified 06/02/19 22:52 shellfish derived [Shellfish] Allergy Anaphylaxis Verified 06/02/19 22:52 Iodinated Contrast Media AdvReac Rash/Hives Verified 06/02/19 22:52 Review of Systems ROS Statement: Those systems with pertinent positive or pertinent negative responses have been documented in the HPI. ROS Other: All systems not noted in ROS Statement are negative. Past Medical History Past Medical History: Asthma, COPD, Diabetes Mellitus, Eye Disorder, GERD/Reflux, Pneumonia, Sleep Apnea/CPAP/BIPAP Additional Past Medical History / Comment(s): NIDDM type II(diet controlled following wt. loss), glaucoma bilaterally, tachycardia, AKIRA with CPAP, bronchitis, has O2 at home which she uses prn. 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 History of Any Multi-Drug Resistant Organisms: None Reported Past Surgical History: Bariatric Surgery, Section, Tubal Ligation Additional Past Surgical History / Comment(s): cyst removal under right breast, x 2. gastric sleeve Sx 2017. Past Anesthesia/Blood Transfusion Reactions: No Reported Reaction Past Psychological History: Anxiety, Depression Smoking Status: Current every day smoker Past Alcohol Use History: None Reported Past Drug Use History: None Reported - Past Family History Mother History Unknown: Yes Family Medical History: Cancer, COPD Additional Family Medical History / Comment(s): Breast cancer. She also has a paternal aunt with breast cancer. Father History Unknown: Yes Family Medical History: COPD, Myocardial Infarction ([place]), Vascular Disorder Additional Family Medical History / Comment(s): Father at age 64yrs. General Exam - General Exam Comments Initial Comments: Physical Exam GENERAL: Patient is well-developed and well-nourished. Patient is nontoxic and well- hydrated and is in no distress. HENT: Normocephalic, Atraumatic. EYES: PERRL, EOMI PULMONARY: Expiratory wheezing all lung dillon No distress CARDIOVASCULAR: There is a regular rate and rhythm without any murmurs gallops or rubs. ABDOMEN: Soft and nontender with normal bowel sounds. SKIN: Skin is clear with no lesions or rashes and otherwise unremarkable. : Deferred NEUROLOGIC: Patient is alert and oriented x3. Moving all extremities spontaneously MUSCULOSKELETAL: Normal extremities with adequate strength and full range of motion. No lower extremity swelling or edema. No calf tenderness. PSYCHIATRIC: Normal psychiatric evaluation. Limitations: no limitations Course Vital Signs 06/02/19 06/02/19 06/03/19 22:51 23:53 00:05 Temperature 98.3 F Pulse Rate 104 H 80 76 Respiratory 20 Rate Blood Pressure 139/85 O2 Sat by Pulse 96 Oximetry 06/03/19 00:47 Temperature 98.2 F Pulse Rate 90 Respiratory 16 Rate Blood Pressure 146/88 O2 Sat by Pulse 96 Oximetry Medical Decision Making - Medical Decision Making Patient was seen and evaluated history was obtained from the patient The COPD patient with URI-like symptoms, wheezing, influenza swab was negative chest x-ray and no signs of pneumonia. 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 - Lab Data Lab Results 06/02/19 Range/Units 23:52 Influenza Type A RNA Not Detected (Not Detectd) Influenza Type B (PCR) Not Detected (Not Detectd) Disposition Clinical Impression: Upper respiratory tract infection, Acute exacerbation of chronic obstructive airways disease Disposition: HOME SELF-CARE Condition: Stable Instructions (If sedation given, give patient instructions): COPD (Chronic Obstructive Pulmonary Disease) (DC) Prescriptions: predniSONE [Deltasone] 40 mg PO DAILY 5 Days #10 tablet Is patient prescribed a controlled substance at d/c from ED?: No Referrals: Julio Acosta MD [Primary Care Provider] - 1-2 days
[2019-06-03 00:48] VITALS: BP 146/88; PULSE 90; RESP 16; TEMP 98.2
== END 2019-06-03 00:48 | disposition home or self-care (01) ==
LOC: EC 22:45
DX: J44.1 Chronic obstructive pulmonary disease with (acute) exacerbation (principal); J06.9 Acute upper respiratory infection, unspecified; E11.9 Type 2 diabetes mellitus without complications; G47.33 Obstructive sleep apnea (adult) (pediatric); F41.9 Anxiety disorder, unspecified; F32.9 Major depressive disorder, single episode, unspecified; F17.200 Nicotine dependence, unspecified, uncomplicated; Z79.51 Long term (current) use of inhaled steroids; Z79.899 Other long term (current) drug therapy; Z88.0 Allergy status to penicillin; Z91.09 Other allergy status, other than to drugs and biological substances; Z91.013 Allergy to seafood; Z91.048 Other nonmedicinal substance allergy status; Z99.81 Dependence on supplemental oxygen; Z98.84 Bariatric surgery status; Z99.89 Dependence on other enabling machines and devices
CPT/HCPCS: 94640; 87502; 71046; 99284; J7512

== ENCOUNTER 2020-02-16 19:30 | Emergency (ER) | payer OTHER ==
[2020-02-16 19:39] VITALS: TEMP 98.2
[2020-02-16] MEDS ORDERED: SODIUM CHLORIDE 0.9% 500 ML 500 ML IV STA (20:35)
[2020-02-16] MEDS ORDERED: methylPREDNISolone SOD SUCCI 125 MG/2 ML VIAL IV STA (20:36)
[2020-02-16] MEDS ORDERED: IPRATROPIUM-ALBUTEROL 3 ML NEB INHALATION STA (20:36)
--- NOTE | 2020-02-16 21:05 | XR ---
EXAMINATION TYPE: XR chest 2V DATE OF EXAM: 02/16/2020 COMPARISON: 06/02/2019 HISTORY: Cough TECHNIQUE: 2 views FINDINGS: There is right side aortic arch. There is levocardia. There is some blunting of the left co stophrenic angle. There is coarsening of interstitial markings. Bony thorax is intact. IMPRESSION: Mild pulmonary fibrotic changes. Pleural diaphragmatic scarring at the left lung base. No acute lung disease. No change compared to old exam.
[2020-02-16 21:13] LABS: Basophils # (A) 0.1 k/uL (0-0.2); Basophils % (A) 1 %; Eosinophils # (A) 0.1 k/uL (0-0.7); Eosinophils % (A) 1 %; HCT 47.5 % (34.0-46.0); HGB 15.4 gm/dL (11.4-16.0); Lymphocytes # (A) 3.4 k/uL (1.0-4.8); Lymphocytes % (A) 17 %; MCHC 32.4 g/dL (31.0-37.0); MCV 92.6 fL (80.0-100.0); Mean Platelet Volume 7.6; Monocytes % (A) 5 %; Neutrophils # (A) 14.7 k/uL (1.3-7.7); Neutrophils % (A) 75 %; Platelet Count 282 k/uL (150-450); RBC 5.13 m/uL (3.80-5.40); RDW 12.5 % (11.5-15.5); WBC 19.7 k/uL (3.8-10.6)
[2020-02-16 21:37] LABS: ALT 12 U/L (4-34); African American GFR (CKD) >90 (>60 ml/min/1.73 sqM); Albumin 4.4 g/dL (3.5-5.0); Anion Gap 6 mmol/L; Blood Urea Nitrogen 16 mg/dL (7-17); Calcium 9.9 mg/dL (8.4-10.2); Carbon Dioxide 28 mmol/L (22-30); Chloride 107 mmol/L (98-107); Glucose 85 mg/dL (74-99); Non-African American GFR(CKD) >90 (>60 ml/min/1.73 sqM); Sodium 141 mmol/L (137-145); Total Bilirubin 0.6 mg/dL (0.2-1.3); Total Protein 7.2 g/dL (6.3-8.2)
[2020-02-16 21:45] LABS: AST 20 U/L (14-36); Alkaline Phosphatase 102 U/L (38-126); Potassium 4.4 mmol/L (3.5-5.1)
--- NOTE | 2020-02-16 21:55 | ED ---
General Adult HPI - General Chief complaint: Shortness of Breath Stated complaint: Diff Breathing Time Seen by Provider: 02/16/20 20:14 Source: patient, RN notes reviewed Mode of arrival: ambulatory Limitations: no limitations - History of Present Illness Initial comments: 50-year-old female with a past medical history of asthma, COPD, NIDDM type II, GERD presents to the emergency room for a chief complaint of shortness of breath. Patient has been short of breath for 2 weeks. Patient has a productive cough. Patient is wheezing. Patient has been taking steroids and antibiotics. She states today her oxygen dropped down into the 80s. Patient does not have any chest pain. Patient states she has been on azithromycin and steroids for about 4 days now. Patient does not feel that she is getting better. She denies fevers.Patient has no other complaints at this time including chest pain, abdominal pain, nausea or vomiting, headache, or visual changes. - Related Data Home Medications Medication Instructions Recorded Confirmed Fluticasone/Salmeterol [Advair 1 puff INHALATION RT-BID 03/24/15 02/16/20 500-50 Diskus] Hydrocodone/Acetaminophen [[place] 1 tab PO Q8H PRN 02/14/16 02/16/20 10-325] ALPRAZolam [Xanax] 0.5 mg PO BID PRN 02/16/20 02/16/20 Albuterol Nebulized [Ventolin 2.5 mg INHALATION RT-QID PRN 02/16/20 02/16/20 Nebulized] Albuterol Sulfate [Ventolin HFA] 2 puff INHALATION RT-Q4H PRN 02/16/20 02/16/20 Azithromycin [Zithromax] 500 mg PO DAILY 02/16/20 02/16/20 Cyclobenzaprine (Unknown Dose) 1 tab PO DAILY PRN 02/16/20 02/16/20 Fluticasone Nasal [place] [Flonase 1 spray EA NOSTRIL DAILY PRN 02/16/20 02/16/20 Nasal [place]] diphenhydrAMINE [Benadryl] 25 mg PO DAILY PRN 02/16/20 02/16/20 guaiFENesin [Mucinex] 600 mg PO BID PRN 02/16/20 02/16/20 predniSONE See Taper PO DIRECTED 02/16/20 02/16/20 Previous Rx's Medication Instructions Recorded Ipratropium-Albuterol Nebulize 3 ml INHALATION QID 3 Days #12 neb 02/16/20 [Duoneb 0.5 mg-3 mg/3 ml Soln] Allergies Allergy/AdvReac Type Severity Reaction Status Date / Time Penicillins Allergy Rash/Hives Verified 02/16/20 22:13 pollen extracts Allergy Dyspnea Verified 02/16/20 22:13 shellfish derived [Shellfish] Allergy Anaphylaxis Verified 02/16/20 22:13 Iodinated Contrast Media AdvReac Rash/Hives Verified 02/16/20 22:13 Review of Systems ROS Statement: Those systems with pertinent positive or pertinent negative responses have been documented in the HPI. ROS Other: All systems not noted in ROS Statement are negative. Past Medical History Past Medical History: Asthma, COPD, Diabetes Mellitus, Eye Disorder, GE RD/Reflux, Pneumonia, Sleep Apnea/CPAP/BIPAP Additional Past Medical History / Comment(s): NIDDM type II(diet controlled following wt. loss), glaucoma bilaterally, tachycardia, AKIRA with CPAP, bronchitis, has O2 at home which she uses prn. 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 History of Any Multi-Drug Resistant Organisms: None Reported Past Surgical History: Bariatric Surgery, Section, Tubal Ligation Additional Past Surgical History / Comment(s): cyst removal under right breast, x 2. gastric sleeve Sx 2017. Past Anesthesia/Blood Transfusion Reactions: No Reported Reaction Past Psychological History: Anxiety, Depression Smoking Status: Current every day smoker Past Alcohol Use History: None Reported Past Drug Use History: None Reported - Past Family History Mother History Unknown: Yes Family Medical History: Cancer, COPD Additional Family Medical History / Comment(s): Breast cancer. She also has a paternal aunt with breast cancer. Father History Unknown: Yes Family Medical History: COPD, Myocardial Infarction (SD), Vascular Disorder Additional Family Medical History / Comment(s): Father at age 64yrs. General Exam Limitations: no limitations General appearance: alert, in no apparent distress Head exam: Present: atraumatic, normocephalic, normal inspection Eye exam: Present: normal appearance, PERRL, EOMI. Absent: scleral icterus, conjunctival injection, periorbital swelling ENT exam: Present: normal exam, mucous membranes moist Neck exam: Present: normal inspection, full ROM. Absent: tenderness, meningismus, lymphadenopathy Respiratory exam: Present: wheezes (Wheezing noted throughout lung dillon.). Absent: respiratory distress, rales, rhonchi, stridor Cardiovascular Exam: Present: regular rate, normal rhythm, normal heart sounds. Absent: systolic murmur, diastolic murmur, rubs, gallop, clicks GI/Abdominal exam: Present: soft, normal bowel sounds. Absent: distended, tenderness, guarding, rebound, rigid Neurological exam: Present: alert Course Vital Signs 02/16/20 02/16/20 02/16/20 19:35 20:12 21:45 Temperature 98.2 F Pulse Rate 92 69 Respiratory 19 18 Rate Blood Pressure 141/89 O2 Sat by Pulse 95 Oximetry 02/16/20 22:00 Temperature Pulse Rate 70 Respiratory Rate Blood Pressure O2 Sat by Pulse Oximetry Medical Decision Making - Medical Decision Making Vitals are stable. Patient is recorded as 95% on room air. When I'm in the room she is usually around 98-99%. Patient is well-appearing. She does not have any respiratory distress. She does have wheezing in bilateral lung dillon. CBC does show leukocytosis which is consistent with patient's past CBCs. Patient also started steroids in this is likely reactive to the prednisone. She has been on it for 4 days. CMP is unremarkable. Chest x-ray shows mild pulmonary fibrotic changes. No acute lung disease. She was given DuoNeb which she states helped significantly. States that helps more than the albuterol that she has at home. Patient ambulatory oxygen is 92%. At this time patient is comfortable with discharge home. [place] virus testing is pending. Patient will follow-up with her doctor. She was given a few days worth of DuoNeb as this was more helpful to her. She will return here for any worsening symptoms and she is agreeable to that. I discussed this case with attending Dr. Reid who agrees with this assessment and treatment plan. - Lab Data Result diagrams: 02/16/20 21:06 02/16/20 21:06 Lab Results 02/16/20 02/16/20 Range/Units 21:06 21:06 WBC 19.7 H (3.8-10.6) k/uL RBC 5.13 (3.80-5.40) m/uL Hgb 15.4 (11.4-16.0) gm/dL Hct 47.5 H (34.0-46.0) % MCV 92.6 (80.0-100.0) fL MCH 30.0 (25.0-35.0) pg MCHC 32.4 (31.0-37.0) g/dL RDW 12.5 (11.5-15.5) % Plt Count 282 (150-450) k/uL Neutrophils % 75 % Lymphocytes % 17 % Monocytes % 5 % Eosinophils % 1 % Basophils % 1 % Neutrophils # 14.7 H (1.3-7.7) k/uL Lymphocytes # 3.4 (1.0-4.8) k/uL Monocytes # 1.0 (0-1.0) k/uL Eosinophils # 0.1 (0-0.7) k/uL Basophils # 0.1 (0-0.2) k/uL Sodium 141 (137-145) mmol/L Potassium 4.4 (3.5-5.1) mmol/L Chloride 107 (98-107) mmol/L Carbon Dioxide 28 (22-30) mmol/L Anion Gap 6 mmol/L BUN 16 (7-17) mg/dL Creatinine 0.59 (0.52-1.04) mg/dL Est GFR (CKD-EPI)AfAm >90 (>60 ml/min/1.73 sqM) Est GFR (CKD-EPI)NonAf >90 (>60 ml/min/1.73 sqM) Glucose 85 (74-99) mg/dL Calcium 9.9 (8.4-10.2) mg/dL Total Bilirubin 0.6 (0.2-1.3) mg/dL AST 20 (14-36) U/L ALT 12 (4-34) U/L Alkaline Phosphatase 102 (38-126) U/L Total Protein 7.2 (6.3-8.2) g/dL Albumin 4.4 (3.5-5.0) g/dL Disposition Clinical Impression: COPD exacerbation Disposition: HOME SELF-CARE Condition: Good Instructions (If sedation given, give patient instructions): COPD (Chronic Obstructive Pulmonary Disease) (ED) Additional Instructions: Please finish your course of steroids and antibiotics. Please follow-up with primary care in 1-2 days. Please return to the emergency room for any worsening symptoms. Prescriptions: Ipratropium-Albuterol Nebulize [Duoneb 0.5 mg-3 mg/3 ml Soln] 3 ml INHALATION QID 3 Days #12 neb Is patient prescribed a controlled substance at d/c from ED?: No Referrals: Julio Acosta MD [Primary Care Provider] - 1-2 days Time of Disposition: 22:23
[2020-02-16 22:40] VITALS: BP 125/64; PULSE 79; RESP 17
== END 2020-02-16 22:39 | disposition home or self-care (01) ==
LOC: EC 19:30
DX: J44.1 Chronic obstructive pulmonary disease with (acute) exacerbation (principal); F41.9 Anxiety disorder, unspecified; F32.9 Major depressive disorder, single episode, unspecified; F17.200 Nicotine dependence, unspecified, uncomplicated; G47.33 Obstructive sleep apnea (adult) (pediatric); Z79.51 Long term (current) use of inhaled steroids; Z79.899 Other long term (current) drug therapy; Z88.0 Allergy status to penicillin; Z91.013 Allergy to seafood; Z91.041 Radiographic dye allergy status; Z91.048 Other nonmedicinal substance allergy status; Z99.89 Dependence on other enabling machines and devices
CPT/HCPCS: 36415; 94640; 80053; 85025; 71046; 99285; 96374; U0003; J2930

== ENCOUNTER → 2020-03-15 | Outpatient (CLI) | payer OTHER ==
[2020-03-15 12:52] LABS: HCT 46.4 % (34.0-46.0); HGB 15.2 gm/dL (11.4-16.0); MCH 31.4 pg (25.0-35.0); MCHC 32.7 g/dL (31.0-37.0); MCV 95.9 fL (80.0-100.0); Mean Platelet Volume 7.4; Platelet Count 220 k/uL (150-450); RBC 4.84 m/uL (3.80-5.40); RDW 12.5 % (11.5-15.5)
[2020-03-15 20:32] LABS: African American GFR (CKD) 98.9 (60.0-200.0); Anion Gap 6.7 mmol/L (4.00-12.00); BUN/Creat Ratio 11.25 Ratio (12.00-20.00); Calcium 9.5 mg/dL (8.7-10.3); Carbon Dioxide 27.3 mmol/L (21.6-31.8); Chol/HDL Ratio 3.43; LDL Cholesterol,Calculated 146.2 mg/dL (0.0-131.0); Non-African American GFR(CKD) 85.4 (60.0-200.0); Potassium 4.3 mmol/L (3.5-5.5); VLDL Calculation 16.8 mg/dL (5.00-40.00)
== END | disposition home or self-care (01) ==
LOC: LABWHC1 11:50
PROVIDERS: ATTEND Internal Medicine Interventional Cardiology
DX: E78.5 Hyperlipidemia, unspecified (principal)
CPT/HCPCS: 36415; 80048; 80061; 85027

== ENCOUNTER 2020-04-18 19:31 | Inpatient (IN) | payer OTHER ==
[2020-04-18] MEDS ORDERED: SODIUM CHLORIDE 0.9% 500 ML 500 ML IV STA (20:14)
[2020-04-18] MEDS ORDERED: methylPREDNISolone SOD SUCCI 125 MG/2 ML VIAL IV STA (20:14)
[2020-04-18] MEDS ORDERED: IPRATROPIUM-ALBUTEROL 3 ML NEB INHALATION STA (20:14)
[2020-04-18] MEDS ORDERED: ALBUTEROL NEB (CONC) 2.5 MG/0.5 ML INHALATION STA (20:15)
[2020-04-18] MEDS ORDERED: ALBUTEROL NEBULIZED 2.5 MG/3 ML INHALATION STA (20:16)
--- NOTE | 2020-04-18 20:20 | ED ---
SOB HPI - General Chief Complaint: Shortness of Breath Stated Complaint: BRADY Time Seen by Provider: 04/18/20 19:55 Source: patient Mode of arrival: wheelchair Limitations: no limitations - History of Present Illness Initial Comments: 50-year-old female patient with past medical history significant for asthma, COPD, diabetes diet controlled, sleep apnea presents to the emergency department today for evaluation of shortness of breath, cough, and chest tightness for the last week. Patient states her symptoms seemed be getting worse. She has seen her molding technician twice in the last week and was given antibiotics and steroid injections. States that her symptoms are not improving. States that she did do several breathing treatments today without relief. She denies any fever or chills. States she does have some nasal congestion but denies sore throat. Denies nausea, vomiting, or diarrhea. She does currently smoke cigarettes. Patient denies any recent rash, abdominal pain, back pain, numbness, tingling, dizziness, weakness, hematuria, dysuria, urinary urgency, urinary frequency, headache, visual changes, or any other complaints. - Related Data Home Medications Medication Instructions Recorded Confirmed Fluticasone/Salmeterol [Advair 1 puff INHALATION RT-BID 03/24/15 02/16/20 500-50 Diskus] Hydrocodone/Acetaminophen [[place] 1 tab PO Q8H PRN 02/14/16 02/16/20 10-325] ALPRAZolam [Xanax] 0.5 mg PO BID PRN 02/16/20 02/16/20 Albuterol Nebulized [Ventolin 2.5 mg INHALATION RT-QID PRN 02/16/20 02/16/20 Nebulized] Albuterol Sulfate [Ventolin HFA] 2 puff INHALATION RT-Q4H PRN 02/16/20 02/16/20 Azithromycin [Zithromax] 500 mg PO DAILY 02/16/20 02/16/20 Cyclobenzaprine (Unknown Dose) 1 tab PO DAILY PRN 02/16/20 02/16/20 Fluticasone Nasal [place] [Flonase 1 spray EA NOSTRIL DAILY PRN 02/16/20 02/16/20 Nasal [place]] diphenhydrAMINE [Benadryl] 25 mg PO DAILY PRN 02/16/20 02/16/20 guaiFENesin [Mucinex] 600 mg PO BID PRN 02/16/20 02/16/20 predniSONE See Taper PO DIRECTED 02/16/20 02/16/20 Previous Rx's Medication Instructions Recorded Ipratropium-Albuterol Nebulize 3 ml INHALATION QID 3 Days #12 neb 02/16/20 [Duoneb 0.5 mg-3 mg/3 ml Soln] Allergies Allergy/AdvReac Type Severity Reaction Status Date / Time Penicillins Allergy Rash/Hives Verified 04/18/20 19:35 pollen extracts Allergy Dyspnea Verified 04/18/20 19:35 shellfish derived [Shellfish] Allergy Anaphylaxis Verified 04/18/20 19:35 Iodinated Contrast Media AdvReac Rash/Hives Verified 04/18/20 19:35 Review of Systems ROS Statement: Those systems with pertinent positive or pertinent negative responses have been documented in the HPI. ROS Other: All systems not noted in ROS Statement are negative. Past Medical History Past Medical History: Asthma, COPD, Diabetes Mellitus, Eye Disorder, GERD/Reflux, Pneumonia, Sleep Apnea/CPAP/BIPAP Additional Past Medical History / Comment(s): NIDDM type II(diet controlled following wt. loss), glaucoma bilaterally, tachycardia, AKIRA with CPAP, bronchitis, has O2 at home which she uses prn. 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 History of Any Multi-Drug Resistant Organisms: None Reported Past Surgical History: Bariatric Surgery, Section, Tubal Ligation Additional Past Surgical History / Comment(s): cyst removal under right breast, x 2. gastric sleeve Sx 2017. Past Anesthesia/Blood Transfusion Reactions: No Reported Reaction Past Psychological History: Anxiety, Depression Smoking Status: Current every day smoker Past Alcohol Use History: None Reported Past Drug Use History: None Reported - Past Family History Mother History Unknown: Yes Family Medical History: Cancer, COPD Additional Family Medical History / Comment(s): Breast cancer. She also has a paternal aunt with breast cancer. Father History Unknown: Yes Family Medical History: COPD, Myocardial Infarction (SD), Vascular Disorder Additional Family Medical History / Comment(s): Father at age 64yrs. General Exam Limitations: no limitations General appearance: alert, in no apparent distress, other (Physical well- developed, well-nourished adult female patient in no acute distress. Vital signs upon presentation temperature 98.9F, pulse 123, respirations 26, blood pressure 115/67, pulse ox 92% on room air.) Eye exam: Present: normal appearance, PERRL, EOMI. Absent: scleral icterus, conjunctival injection, periorbital swelling ENT exam: Present: normal exam, normal oropharynx, mucous membranes moist Respiratory exam: Present: wheezes (Inspiratory and expiratory wheezing noted to the posterior lung dillon), accessory muscle use (Abdominal), other (Tachyp marco). Absent: normal lung sounds bilaterally, respiratory distress, rales, rhonchi, stridor Cardiovascular Exam: Present: regular rate, normal rhythm, normal heart sounds. Absent: systolic murmur, diastolic murmur, rubs, gallop, clicks GI/Abdominal exam: Present: soft, normal bowel sounds. Absent: distended, tenderness, guarding, rebound, rigid Neurological exam: Present: alert, oriented X3, CN II-XII intact Psychiatric exam: Present: normal affect, normal mood Skin exam: Present: warm, dry, intact, normal color. Absent: rash Course Vital Signs 04/18/20 04/18/20 04/18/20 19:33 20:06 21:06 Temperature 98.9 F Pulse Rate 123 H 114 H 72 Respiratory 26 H 24 18 Rate Blood Pressure 115/67 122/76 O2 Sat by Pulse 92 L 95 Oximetry 04/18/20 21:13 Temperature Pulse Rate 73 Respiratory 18 Rate Blood Pressure O2 Sat by Pulse Oximetry Medical Decision Making - Medical Decision Making 50-year-old female patient presents to the emergency department today for evaluation of shortness of breath, chest tightness, cough for the last week. Physical examination did reveal diffuse expiratory and inspiratory wheezing in the posterior lung dillon. She was satting 90% on room air upon arrival. She is also tachycardic. Labs reviewed and did reveal white blood cell count of 14.7 the patient has been on steroids for the last few days. D-dimer was negative. Glucose 151. Lactic acid 2.1. She did test negative for influenza and Covid. Chest x-ray showed some chronic scarring but no acute abnormalities. Patient symptoms are consistent with acute COPD exacerbation. She did so some improvement with IV steroids and a double albuterol breathing treatment. We'll admit to the hospital for further IV steroids, antibiotics, and breathing treatments. Patient is agreeable with this plan. - Lab Data Result diagrams: 04/18/20 21:02 04/18/20 21:02 Lab Results 04/18/20 04/18/20 04/18/20 Range/Units 21:02 21:02 21:02 WBC 14.7 H (3.8-10.6) k/uL RBC 5.19 (3.80-5.40) m/uL Hgb 15.9 (11.4-16.0) gm/dL Hct 48.5 H (34.0-46.0) % MCV 93.4 (80.0-100.0) fL MCH 30.7 (25.0-35.0) pg MCHC 32.9 (31.0-37.0) g/dL RDW 12.8 (11.5-15.5) % Plt Count 290 (150-450) k/uL MPV 7.8 Neutrophils % 93 % Lymphocytes % 4 % Monocytes % 2 % Eosinophils % 0 % Basophils % 0 % Neutrophils # 13.7 H (1.3-7.7) k/uL Lymphocytes # 0.6 L (1.0-4.8) k/uL Monocytes # 0.3 (0-1.0) k/uL Eosinophils # 0.0 (0-0.7) k/uL Basophils # 0.0 (0-0.2) k/uL PT 9.6 (9.0-12.0) sec INR 0.9 (<1.2) APTT 23.7 (22.0-30.0) sec D-Dimer 0.21 (<0.60) mg/L FEU Sodium 141 (137-145) mmol/L Potassium 4.2 (3.5-5.1) mmol/L Chloride 109 H (98-107) mmol/L Carbon Dioxide 25 (22-30) mmol/L Anion Gap 7 mmol/L BUN 19 H (7-17) mg/dL Creatinine 0.72 (0.52-1.04) mg/dL Est GFR (CKD-EPI)AfAm >90 (>60 ml/min/1.73 sqM) Est GFR (CKD-EPI)NonAf >90 (>60 ml/min/1.73 sqM) Glucose 151 H (74-99) mg/dL Plasma Lactic Acid Sesar (0.7-2.0) mmol/L Calcium 9.5 (8.4-10.2) mg/dL Magnesium 2.1 (1.6-2.3) mg/dL Total Bilirubin 0.5 (0.2-1.3) mg/dL AST 18 (14-36) U/L ALT 14 (4-34) U/L Alkaline Phosphatase 102 (38-126) U/L Troponin I (0.000-0.034) ng/mL Total Protein 7.1 (6.3-8.2) g/dL Albumin 4.2 (3.5-5.0) g/dL Coronavirus (PCR) (Not Detectd) Influenza Type A RNA (Not Detectd) Influenza Type B (PCR) (Not Detectd) 04/18/20 04/18/20 04/18/20 Range/Units 21:02 21:02 21:02 WBC (3.8-10.6) k/uL RBC (3.80-5.40) m/uL Hgb (11.4-16.0) gm/dL Hct (34.0-46.0) % MCV (80.0-100.0) fL MCH (25.0-35.0) pg MCHC (31.0-37.0) g/dL RDW (11.5-15.5) % Plt Count (150-450) k/uL MPV Neutrophils % % Lymphocytes % % Monocytes % % Eosinophils % % Basophils % % Neutrophils # (1.3-7.7) k/uL Lymphocytes # (1.0-4.8) k/uL Monocytes # (0-1.0) k/uL Eosinophils # (0-0.7) k/uL Basophils # (0-0.2) k/uL PT (9.0-12.0) sec INR (<1.2) APTT (22.0-30.0) sec D-Dimer (<0.60) mg/L FEU Sodium (137-145) mmol/L Potassium (3.5-5.1) mmol/L Chloride (98-107) mmol/L Carbon Dioxide (22-30) mmol/L Anion Gap mmol/L BUN (7-17) mg/dL Creatinine (0.52-1.04) mg/dL Est GFR (CKD-EPI)AfAm (>60 ml/min/1.73 sqM) Est GFR (CKD-EPI)NonAf (>60 ml/min/1.73 sqM) Glucose (74-99) mg/dL Plasma Lactic Acid Sesar 2.1 H* (0.7-2.0) mmol/L Calcium (8.4-10.2) mg/dL Magnesium (1.6-2.3) mg/dL Total Bilirubin (0.2-1.3) mg/dL AST (14-36) U/L ALT (4-34) U/L Alkaline Phosphatase (38-126) U/L Troponin I <0.012 (0.000-0.034) ng/mL Total Protein (6.3-8.2) g/dL Albumin (3.5-5.0) g/dL Coronavirus (PCR) (Not Detectd) Influenza Type A RNA Not Detected (Not Detectd) Influenza Type B (PCR) Not Detected (Not Detectd) 04/18/20 Range/Units 21:02 WBC (3.8-10.6) k/uL RBC (3.80-5.40) m/uL Hgb (11.4-16.0) gm/dL Hct (34.0-46.0) % MCV (80.0-100.0) fL MCH (25.0-35.0) pg MCHC (31.0-37.0) g/dL RDW (11.5-15.5) % Plt Count (150-450) k/uL MPV Neutrophils % % Lymphocytes % % Monocytes % % Eosinophils % % Basophils % % Neutrophils # (1.3-7.7) k/uL Lymphocytes # (1.0-4.8) k/uL Monocytes # (0-1.0) k/uL Eosinophils # (0-0.7) k/uL Basophils # (0-0.2) k/uL PT (9.0-12.0) sec INR (<1.2) APTT (22.0-30.0) sec D-Dimer (<0.60) mg/L FEU Sodium (137-145) mmol/L Potassium (3.5-5.1) mmol/L Chloride (98-107) mmol/L Carbon Dioxide (22-30) mmol/L Anion Gap mmol/L BUN (7-17) mg/dL Creatinine (0.52-1.04) mg/dL Est GFR (CKD-EPI)AfAm (>60 ml/min/1.73 sqM) Est GFR (CKD-EPI)NonAf (>60 ml/min/1.73 sqM) Glucose (74-99) mg/dL Plasma Lactic Acid Sesar (0.7-2.0) mmol/L Calcium (8.4-10.2) mg/dL Magnesium (1.6-2.3) mg/dL Total Bilirubin (0.2-1.3) mg/dL AST (14-36) U/L ALT (4-34) U/L Alkaline Phosphatase (38-126) U/L Troponin I (0.000-0.034) ng/mL Total Protein (6.3-8.2) g/dL Albumin (3.5-5.0) g/dL Coronavirus (PCR) Not Detected (Not Detectd) Influenza Type A RNA (Not Detectd) Influenza Type B (PCR) (Not Detectd) - EKG Data -: EKG Interpreted by Me EKG Comments: EKG obtained at 20 he the 48 shows sinus tachycardia with ventricular rate of 104, IA interval 178, QRS duration 88, QT 352, QTc 462. No evidence of ST elevation or depression. - Radiology Data Radiology results: report reviewed, image reviewed Two-view x-ray of the chest is obtained. Report was reviewed in its entirety. Impression by Dr. Flores shows minimal fibrotic changes. Pleural diaphragmatic scarring at the left lung base. No significant change compared to old exam. Disposition Clinical Impression: COPD exacerbation Disposition: ADMITTED IP TO THIS [facility] Condition: Serious Referrals: None,Stated [REFERRING] - 1-2 days Decision to Admit Reason: Admit from EC Decision Date: 04/18/20 Decision Time: 21:59
--- NOTE | 2020-04-18 20:44 | XR ---
EXAMINATION TYPE: XR chest 2V DATE OF EXAM: 04/18/2020 COMPARISON: 02/16/2020 HISTORY: Difficulty breathing TECHNIQUE: FINDINGS: There is right side aortic arch. Lungs are clear of infiltrate. There is no heart failure. There is slight blunting of left costophrenic angle. There is slight coarsening of interstitial efrain ngs. IMPRESSION: Minimal fibrotic changes. Pleural diaphragmatic scarring at the left lung base. No signif icant change compared to old exam.
[2020-04-18 21:19] LABS: Basophils % (A) 0 %; Eosinophils % (A) 0 %; HCT 48.5 % (34.0-46.0); HGB 15.9 gm/dL (11.4-16.0); Lymphocytes # (A) 0.6 k/uL (1.0-4.8); Lymphocytes % (A) 4 %; MCH 30.7 pg (25.0-35.0); MCHC 32.9 g/dL (31.0-37.0); MCV 93.4 fL (80.0-100.0); Mean Platelet Volume 7.8; Monocytes # (A) 0.3 k/uL (0-1.0); Monocytes % (A) 2 %; Neutrophils # (A) 13.7 k/uL (1.3-7.7); Neutrophils % (A) 93 %; Platelet Count 290 k/uL (150-450); RBC 5.19 m/uL (3.80-5.40); RDW 12.8 % (11.5-15.5); WBC 14.7 k/uL (3.8-10.6)
[2020-04-18 21:26] LABS: ALT 14 U/L (4-34); AST 18 U/L (14-36); African American GFR (CKD) >90 (>60 ml/min/1.73 sqM); Albumin 4.2 g/dL (3.5-5.0); Alkaline Phosphatase 102 U/L (38-126); Anion Gap 7 mmol/L; Blood Urea Nitrogen 19 mg/dL (7-17); Calcium 9.5 mg/dL (8.4-10.2); Carbon Dioxide 25 mmol/L (22-30); Chloride 109 mmol/L (98-107); Glucose 151 mg/dL (74-99); Magnesium 2.1 mg/dL (1.6-2.3); Non-African American GFR(CKD) >90 (>60 ml/min/1.73 sqM); Potassium 4.2 mmol/L (3.5-5.1); Sodium 141 mmol/L (137-145); Total Bilirubin 0.5 mg/dL (0.2-1.3); Total Protein 7.1 g/dL (6.3-8.2)
[2020-04-18 21:38] LABS: D-Dimer 0.21 mg/L FEU (<0.60); INR 0.9 (<1.2); Partial Thromboplastin Time 23.7 sec (22.0-30.0); Prothrombin Time 9.6 sec (9.0-12.0)
[2020-04-18] MEDS ORDERED: IPRATROPIUM-ALBUTEROL 3 ML NEB INHALATION PRN (21:55)
[2020-04-18] MEDS ORDERED: LEVOFLOXACIN 750MG-D5W PMX 750 MG in DEXTROSE/WATER 1 150ML.BAG IVPB STA (21:58)
[2020-04-19] MEDS: methylPREDNISolone SOD SUCCI 125 MG/2 ML VIAL IV SCH ×3 (00:01→12:06)
[2020-04-19] MEDS: ALBUTEROL NEBULIZED 2.5 MG/3 ML INHALATION SCH ×2 (07:27→11:11)
[2020-04-19] MEDS: guaiFENesin 600 MG TABLET.ER PO SCH ×2 (08:15→20:50)
[2020-04-19] MEDS ORDERED: ALPRAZolam 0.5 MG TAB PO PRN (10:12)
[2020-04-19] MEDS ORDERED: KETOTIFEN 0.025% OPHTH DROPS 5 ML BTL LEFT EYE PRN (10:12)
[2020-04-19] MEDS ORDERED: guaiFENesin 600 MG TABLET.ER PO PRN (10:12)
[2020-04-19] MEDS ORDERED: HEPARIN SODIUM,PORCINE 5,000 UNIT/ML 1 ML VIAL SQ SCH (10:15)
[2020-04-19] MEDS ORDERED: NICOTINE POLACRILEX 2 MG GUM BUCCAL PRN (12:30)
[2020-04-19] MEDS: INSULIN ASPART (NovoLOG) 100 UNIT/ML VIAL SQ SCH ×3 (12:50→20:51)
[2020-04-19] MEDS: NICOTINE 21MG/24HR PATCH TRANSDERM SCH (13:07)
--- NOTE | 2020-04-19 13:52 | P.CNPUL ---
History of Present Illness Consult date: 04/19/20 Reason for consult: dyspnea, COPD History of present illness: 50-year-old female patient, a chronic smoker with known history of COPD whereas been maintained on Advair and outpatient basis. She also utilizes oxygen as needed and she has albuterol nebulized that she utilize on a when necessary basis. She has seen our office in regards to her COPD. The patient is coming in with few days worth of increased dyspnea cough chest tightness and wheezing. No fever. No chills. No angina. No pleurisy. No palpitation. No swelling lower extremities. Executive for COPD exacerbation is not clear at this point in time. The chest x-ray is consistent with COPD. She did have some mild leukocytosis with a white cell count 14.7. Initial lactic acid level was at 2.5 and dropped down to 1.5. Blood work was within normal limits. The ashley virus covid 19 testing came back negative. Influenza A and B screen were both negative. No recent hospitalization for COPD exacerbation. No other constitutional symptoms. The patient admits to smoke about half pack of cigarettes on a daily basis. Review of Systems Constitutional: Reports fatigue Eyes: bilateral decreased vision, denies as per HPI, denies blurred vision, denies bulging eye, denies diplopia, denies discharge, denies dry eye, denies irritation, denies itching, denies pain, denies photophobia, denies loss of peripheral vision, denies loss of vision, denies tunnel vision/blind spots Ears: deny: decreased hearing, ear discharge, earache, tinnitus Ears, nose, mouth and throat: Denies headache, Denies sore throat Breasts: absent: as per HPI, change in shape, gynecomastia, masses, nipple discharge, pain, skin changes, swelling Cardiovascular: Reports decreased exercise tolerance, Reports dyspnea on exertion Respiratory: Reports dyspnea Gastrointestinal: Reports as per HPI Genitourinary: Reports as per HPI Menstruation: Reports as per HPI Musculoskeletal: Reports as per HPI Musculoskeletal: absent: ankle pain, ankle stiffness, ankle swelling Integumentary: Reports as per HPI Neurological: Reports as per HPI Psychiatric: Reports as per HPI Endocrine: Reports as per HPI Hematologic/Lymphatic: Reports as per HPI Allergic/Immunologic: Reports as per HPI Past Medical History Past Medical History: Asthma, COPD, Diabetes Mellitus, Eye Disorder, GERD/Reflux, Pneumonia, Sleep Apnea/CPAP/BIPAP Additional Past Medical History / Comment(s): NIDDM type II(diet controlled following wt. loss), glaucoma bilaterally, tachycardia, AKIRA with CPAP not used the machine since she lost 80 lbs post gastric sleeve, bronchitis, has O2 at home which she uses prn. 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 History of Any Multi-Drug Resistant Organisms: None Reported Past Surgical History: Bariatric Surgery, Section, Tubal Ligation Additional Past Surgical History / Comment(s): cyst removal under right breast, x 2. gastric sleeve Sx 2017. Past Anesthesia/Blood Transfusion Reactions: No Reported Reaction Past Psychological History: Anxiety, Depression Additional Psychological History / Comment(s): Pt resides with her spouse, thomas de leoner and grandson. She is normally independent. She uses no assistive device. She drives. She has O2 which she uses prn and a nebulizer and glucose monitor at home. Smoking Status: Current every day smoker Past Alcohol Use History: None Reported Additional Past Alcohol Use History / Comment(s): Pt states she started smoking in 1986 and quit 5 months ago. Past Drug Use History: None Reported - Past Family History Mother History Unknown: Yes Family Medical History: Cancer, COPD Additional Family Medical History / Comment(s): Breast cancer. She also has a paternal aunt with breast cancer. Father History Unknown: Yes Family Medical History: COPD, Myocardial Infarction ([place]), Vascular Disorder Additional Family Medical History / Comment(s): Father at age 64yrs. Medications and Allergies Home Medications Medication Instructions Recorded Confirmed Type Fluticasone/Salmeterol [Advair 1 puff INHALATION RT-BID 03/24/15 04/18/20 History 500-50 Diskus] Hydrocodone/Acetaminophen [Gypsum 1 tab PO Q8H PRN 02/14/16 04/18/20 History 10-325] ALPRAZolam [Xanax] 0.5 mg PO BID PRN 02/16/20 04/18/20 History Albuterol Nebulized [Ventolin 2.5 mg INHALATION RT-QID PRN 02/16/20 04/18/20 History Nebulized] Albuterol Sulfate [Ventolin HFA] 2 puff INHALATION RT-Q4H PRN 02/16/20 04/18/20 History Azithromycin [Zithromax] 500 mg PO DAILY 02/16/20 04/18/20 History diphenhydrAMINE [Benadryl] 25 mg PO DAILY PRN 02/16/20 04/18/20 History guaiFENesin [Mucinex] 600 mg PO BID PRN 02/16/20 04/18/20 History predniSONE See Taper PO DIRECTED 02/16/20 04/18/20 History Atorvastatin [Lipitor] 20 mg PO HS 04/18/20 04/18/20 History Bepreve 1.5% Eye Drops 1 drop LEFT EYE BID PRN 04/18/20 04/18/20 History Ipratropium-Albuterol Nebulize 3 ml INHALATION RT-QID PRN 04/18/20 04/18/20 History [Duoneb 0.5 mg-3 mg/3 ml Soln] Levofloxacin [Levaquin] 750 mg PO DAILY 04/18/20 04/18/20 History Vitamin C (Unknown Strength) 1 tab PO DAILY 04/18/20 04/18/20 History Vitamin D (Unknown Strength) 1 tab PO DAILY 04/18/20 04/18/20 History Allergies Allergy/AdvReac Type Severity Reaction Status Date / Time Penicillins Allergy Rash/Hives Verified 04/18/20 19:35 pollen extracts Allergy Dyspnea Verified 04/18/20 19:35 shellfish derived [Shellfish] Allergy Anaphylaxis Verified 04/18/20 19:35 Iodinated Contrast Media AdvReac Rash/Hives Verified 04/18/20 19:35 Physical Exam Vitals: Vital Signs Temp Pulse Pulse Resp BP BP Pulse Ox 04/19/20 07:40 80 04/19/20 07:27 80 04/19/20 03:00 97.8 F 82 16 129/72 94 L 04/19/20 01:54 98.4 F 103 H 16 135/66 94 L 04/18/20 22:50 98.0 F 77 18 108/69 97 04/18/20 21:13 73 18 04/18/20 21:06 72 18 04/18/20 20:06 114 H 24 122/76 95 04/18/20 19:33 98.9 F 123 H 26 H 115/67 92 L Intake and Output 04/18/20 04/19/20 04/19/20 22:59 06:59 14:59 Other: Voiding Method Toilet # Voids 2 Weight 56.699 kg The patient appeared well nourished and normally developed. Vital signs as documented. Head exam is unremarkable. No scleral icterus or corneal arcus noted. Neck is without jugular venous distension, thyromegaly, or carotid bruits. Carotid upstrokes are brisk bilaterally. Lungs sounds are diminished and the patient had diffuse expiratory wheezes heard throughout the lung his bilaterally and there is prolongation of exhalation phase of breathing.. Cardiac exam reveals the PMI to be normally sized and situated. Rhythm is regular. First and second heart sounds normal. No murmurs, rubs or gallops. Abdominal exam reveals normal bowel sounds, no masses, no organomegaly and no aortic enlargement. Extremities are nonedematous and both femoral and pedal pulses are normal.Examination of the skin revealed no evidence of significant rashes, suspicious appearing nevi or other concerning lesions.Neurologically, the patient is awake and alert and the patient does not have any focal neurological deficit. Cranial nerves are essentially intact. Results - Laboratory Findings CBC and BMP: 04/18/20 21:02 04/18/20 21:02 PT/INR, D-dimer PT 9.6 sec (9.0-12.0) 04/18/20 21:02 INR 0.9 (<1.2) 04/18/20 21:02 D-Dimer 0.21 mg/L FEU (<0.60) 04/18/20 21:02 Abnormal lab findings: Abnormal Labs 04/18/20 04/18/20 04/18/20 21:02 21:02 21:02 WBC 14.7 H Hct 48.5 H Neutrophils # 13.7 H Lymphocytes # 0.6 L Chloride 109 H BUN 19 H Glucose 151 H Plasma Lactic Acid Sesar 2.1 H* 04/19/20 00:06 WBC Hct Neutrophils # Lymphocytes # Chloride BUN Glucose Plasma Lactic Acid Sesar 2.5 H* - Diagnostic Findings Chest x-ray: image reviewed Assessment and Plan Plan: 1 acute exacerbation of chronic COPD 2 moderately severe COPD with a baseline FEV1 of 51% of predicted maintained on Advair on outpatient basis 3 history of obesity post bariatric surgery with gastric sleeve and the patient lost significant amount of weight and her current BMI is 24.4 4 obstructive sleep apnea recovered post weight loss 5 Diabetes mellitus 6 history of glaucoma. 7 smoker Plan DuoNeb nebulized treatments around the clock Perforomist and Pulmicort nebulized treatments twice a day IV Solu Medrol 60 mg every 6 hours Antibiotic coverage with Levaquin Smoking cessation counseling Nicotine patch Oxygen therapy to maintain a saturation above 90% Resume all medications Mucinex for cough and congestion Lovenox for DVT prophylaxis We'll continue to follow
[2020-04-19] MEDS: BUDESONIDE 1 MG/2 ML NEBU INHALATION SCH ×2 (15:41→19:19)
[2020-04-19] MEDS: FORMOTEROL FUMARATE 20 MCG/2 ML NEBU INHALATION SCH ×2 (15:41→19:19)
[2020-04-19] MEDS: IPRATROPIUM-ALBUTEROL 3 ML NEB INHALATION SCH ×4 (15:43→23:10)
[2020-04-19] MEDS: methylPREDNISolone SOD SUCCI 40 MG/ML 1 ML VIAL IV SCH ×2 (16:04→23:58)
[2020-04-19 16:22] LABS: Glucose,Whole Blood 112 mg/dL (75-99)
--- NOTE | 2020-04-19 18:41 | P.HPIM ---
History of Present Illness H&P Date: 04/19/20 Chief Complaint: Shortness of breath History of presenting complaint: This is a pleasant 50-year-old patient Dr. pickard from [place]. Chronic stable medical conditions include diabetes, GERD, sleep apnea stopped using CPAP since he lost weight, osteoarthritis in the back and neck, anxiety depression. She's been bothered by ALLERGIES for last few days. Some wheezing. Became more short of breath progressively. 3 days ago when she a family Dr. pickard was given steroids without much improvement. She has continued to smoke cigarettes. Denies any fever and chills. Appetite is okay. No change in bowel pattern. No headaches. No muscle aches. Significant wheezing. Presented for the same. Review of systems: GEN.: Tired EYES: None HEENT: None NECK: None RESPIRATORY: As above CARDIOVASCULAR: None GASTROINTESTINAL: None GENITOURINARY: None MUSCULOSKELETAL: Some joint pains LYMPHATICS: None HEMATOLOGICAL: None PSYCHIATRY: None NEUROLOGICAL: None Past medical history to include: COPD, diabetes, GERD, obstructive sleep apnea stopped using CPAP since she lost weight, osteoarthritis, the back and neck, anxiety, depression, pediatric surgery-gastric sleeve Social history: . Smoking for about 30 years close to pack a day. No alcohol. 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 Family history: COPD, breast cancer Physical examination: VITAL SIGNS: 98.9, 123, 26, 150/67, 92% room air GENERAL: BMI 24.4, sitting up in bed, slightly short of breath. EYES: Pupils equal. Conjunctiva normal. HEENT: External appearance of nose and ears normal, oral cavity grossly normal. NECK: JVD not raised; masses not palpable. HEART: First and second heart sounds are normal; no edema. LUNGS: Respiratory rate increased, decreased breaths, on prolonged expiration. ABDOMEN: Soft, nontender, liver spleen not palpable, no masses palpable. PSYCH: Alert and oriented x3; mood and affect normal. NEUROLOGICAL: Cranial nerves grossly intact; no facial asymmetry, power and sensation grossly intact. LYMPHATICS: No lymph nodes palpable in the axilla and neck INVESTIGATIONS, reviewed in the clinical context: White count 14.7 hemoglobin 15.9 platelets 290 increased neutrophils potassium 4.2 bun 19 creatinine 0.7 to Lactic acid 2.1 Troponin I less than 0.012 COVID 19 P/Cr-not detected Influenza type A type B both negative EKG tracing personally reviewed by me-normal sinus rhythm Chest x-ray film personally reviewed by me-possible chronic changes Assessment: -Acute COPD exacerbation in a current smoker -Chronic nicotine dependence patient cigarette smoker -Diabetes mellitus type 2 -GERD -Anxiety depression otherwise specified Plan: Patient started on nebulized bronchodilators every 4 hours, long-acting beta agonist nebulizer, IV Solu-Medrol, home medications resumed. Lovenox for DVT prophylaxis. Care was discussed with the patient question also. Smoke cessation counseling: This was done with the patient. Nicotine patch is being given. More than 3 minutes was spent for this Past Medical History Past Medical History: Asthma, COPD, Diabetes Mellitus, Eye Disorder, GERD/Reflux, Pneumonia, Sleep Apnea/CPAP/BIPAP Additional Past Medical History / Comment(s): NIDDM type II(diet controlled following wt. loss), glaucoma bilaterally, tachycardia, AKIRA with CPAP not used the machine since she lost 80 lbs post gastric sleeve, bronchitis, has O2 at home which she uses prn. 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 History of Any Multi-Drug Resistant Organisms: None Reported Past Surgical History: Bariatric Surgery, Section, Tubal Ligation Additional Past Surgical History / Comment(s): cyst removal under right breast, x 2. gastric sleeve Sx 2017. Past Anesthesia/Blood Transfusion Reactions: No Reported Reaction Past Psychological History: Anxiety, Depression Additional Psychological History / Comment(s): Pt resides with her spouse, daughter and grandson. She is normally independent. She uses no assistive device. She drives. She has O2 which she uses prn and a nebulizer and glucose monitor at home. Smoking Status: Current every day smoker Past Alcohol Use History: None Reported Additional Past Alcohol Use History / Comment(s): Pt states she started smoking in 1986 and quit 5 months ago. Past Drug Use History: None Reported - Past Family History Mother History Unknown: Yes Family Medical History: Cancer, COPD Additional Family Medical History / Comment(s): Breast cancer. She also has a paternal aunt with breast cancer. Father History Unknown: Yes Family Medical History: COPD, Myocardial Infarction ([place]), Vascular Disorder Additional Family Medical History / Comment(s): Father at age 64yrs. Medications and Allergies Home Medications Medication Instructions Recorded Confirmed Type Fluticasone/Salmeterol [Advair 1 puff INHALATION RT-BID 03/24/15 04/18/20 History 500-50 Diskus] Hydrocodone/Acetaminophen [Leslie 1 tab PO Q8H PRN 02/14/16 04/18/20 History 10-325] ALPRAZolam [Xanax] 0.5 mg PO BID PRN 02/16/20 04/18/20 History Albuterol Nebulized [Ventolin 2.5 mg INHALATION RT-QID PRN 02/16/20 04/18/20 History Nebulized] Albuterol Sulfate [Ventolin HFA] 2 puff INHALATION RT-Q4H PRN 02/16/20 04/18/20 History Azithromycin [Zithromax] 500 mg PO DAILY 02/16/20 04/18/20 History diphenhydrAMINE [Benadryl] 25 mg PO DAILY PRN 02/16/20 04/18/20 History guaiFENesin [Mucinex] 600 mg PO BID PRN 02/16/20 04/18/20 History predniSONE See Taper PO DIRECTED 02/16/20 04/18/20 History Atorvastatin [Lipitor] 20 mg PO HS 04/18/20 04/18/20 History Bepreve 1.5% Eye Drops 1 drop LEFT EYE BID PRN 04/18/20 04/18/20 History Ipratropium-Albuterol Nebulize 3 ml INHALATION RT-QID PRN 04/18/20 04/18/20 History [Duoneb 0.5 mg-3 mg/3 ml Soln] Levofloxacin [Levaquin] 750 mg PO DAILY 04/18/20 04/18/20 History Vitamin C (Unknown Strength) 1 tab PO DAILY 04/18/20 04/18/20 History Vitamin D (Unknown Strength) 1 tab PO DAILY 04/18/20 04/18/20 History Allergies Allergy/AdvReac Type Severity Reaction Status Date / Time Penicillins Allergy Rash/Hives Verified 04/18/20 19:35 pollen extracts Allergy Dyspnea Verified 04/18/20 19:35 shellfish derived [Shellfish] Allergy Anaphylaxis Verified 04/18/20 19:35 Iodinated Contrast Media AdvReac Rash/Hives Verified 04/18/20 19:35 Physical Exam Vitals: Vital Signs Temp Pulse Pulse Resp BP BP Pulse Ox 04/19/20 15:47 80 04/19/20 14:44 98.5 F 81 16 119/90 94 L 04/19/20 14:10 70 16 04/19/20 11:22 80 04/19/20 11:12 84 04/19/20 09:00 70 16 04/19/20 08:11 97.8 F 70 16 106/68 91 L 04/19/20 07:40 80 04/19/20 07:27 80 04/19/20 03:00 97.8 F 82 16 129/72 94 L 04/19/20 01:54 98.4 F 103 H 16 135/66 94 L 04/18/20 22:50 98.0 F 77 18 108/69 97 04/18/20 21:13 73 18 04/18/20 21:06 72 18 04/18/20 20:06 114 H 24 122/76 95 04/18/20 19:33 98.9 F 123 H 26 H 115/67 92 L Intake and Output 04/19/20 04/19/20 04/19/20 06:59 14:59 22:59 Intake Total 440 300 Balance 440 300 Intake: Oral 440 300 Other: Voiding Method Toilet Toilet # Voids 2 4 Results CBC & Chem 7: 04/18/20 21:02 04/18/20 21:02 Labs: Abnormal Lab Results - Last 24 Hours (Table) 04/18/20 04/18/20 04/18/20 Range/Units 21:02 21:02 21:02 WBC 14.7 H (3.8-10.6) k/uL Hct 48.5 H (34.0-46.0) % Neutrophils # 13.7 H (1.3-7.7) k/uL Lymphocytes # 0.6 L (1.0-4.8) k/uL Chloride 109 H (98-107) mmol/L BUN 19 H (7-17) mg/dL Glucose 151 H (74-99) mg/dL POC Glucose (mg/dL) (75-99) mg/dL Plasma Lactic Acid Sesar 2.1 H* (0.7-2.0) mmol/L 04/19/20 04/19/20 Range/Units 00:06 16:20 WBC (3.8-10.6) k/uL Hct (34.0-46.0) % Neutrophils # (1.3-7.7) k/uL Lymphocytes # (1.0-4.8) k/uL Chloride (98-107) mmol/L BUN (7-17) mg/dL Glucose (74-99) mg/dL POC Glucose (mg/dL) 112 H (75-99) mg/dL Plasma Lactic Acid Sesar 2.5 H* (0.7-2.0) mmol/L Thrombosis Risk Factor Assmnt - Choose All That Apply Each Factor Represents 1 point: Abnormal pulmonary function (COPD), Age 41-60 years Thrombosis Risk Factor Assessment Total Risk Factor Score: 2 Thrombosis Risk Factor Assessment Level: Low Risk
[2020-04-19 20:36] LABS: Glucose,Whole Blood 136 mg/dL (75-99)
[2020-04-19] MEDS: ACETAMINOPHEN TAB 325 MG TAB PO PRN (20:50)
[2020-04-19] MEDS: ATORVASTATIN 20 MG TAB PO SCH (20:51)
[2020-04-19] MEDS: ENOXAPARIN 40 MG/0.4 ML SYRINGE SQ SCH (20:52)
[2020-04-19] MEDS ORDERED: LEVOFLOXACIN 750MG-D5W PMX 750 MG in DEXTROSE/WATER 1 150ML.BAG IVPB SCH (22:00)
[2020-04-20] MEDS: IPRATROPIUM-ALBUTEROL 3 ML NEB INHALATION SCH ×5 (02:43→20:35)
[2020-04-20 06:35] LABS: Glucose,Whole Blood 146 mg/dL (75-99)
[2020-04-20] MEDS: INSULIN ASPART (NovoLOG) 100 UNIT/ML VIAL SQ SCH ×4 (06:43→20:06)
[2020-04-20] MEDS: BUDESONIDE 1 MG/2 ML NEBU INHALATION SCH ×2 (07:26→20:35)
[2020-04-20] MEDS: FORMOTEROL FUMARATE 20 MCG/2 ML NEBU INHALATION SCH ×2 (07:26→20:35)
[2020-04-20] MEDS: methylPREDNISolone SOD SUCCI 40 MG/ML 1 ML VIAL IV SCH (08:49)
[2020-04-20] MEDS: guaiFENesin 600 MG TABLET.ER PO SCH ×2 (08:49→20:06)
[2020-04-20] MEDS: NICOTINE 21MG/24HR PATCH TRANSDERM SCH (08:49)
[2020-04-20] MEDS: SODIUM CHLORIDE 0.9% 1,000 ML IV SCH ×2 (11:29→23:45)
[2020-04-20] MEDS: methylPREDNISolone SOD SUCCI 125 MG/2 ML VIAL IV SCH ×3 (11:29→17:04)
[2020-04-20 11:35] LABS: Glucose,Whole Blood 87 mg/dL (75-99)
--- NOTE | 2020-04-20 14:32 | P.PN ---
Subjective Progress Note Date: 04/20/20 50-year-old female patient, a chronic smoker with known history of COPD whereas been maintained on Advair and outpatient basis. She also utilizes oxygen as needed and she has albuterol nebulized that she utilize on a when necessary basis. She has seen our office in regards to her COPD. The patient is coming in with few days worth of increased dyspnea cough chest tightness and wheezing. No fever. No chills. No angina. No pleurisy. No palpitation. No swelling lower extremities. Executive for COPD exacerbation is not clear at this point in time. The chest x-ray is consistent with COPD. She did have some mild leukocytosis with a white cell count 14.7. Initial lactic acid level was at 2.5 and dropped down to 1.5. Blood work was within normal limits. The ashley virus covid 19 testing came back negative. Influenza A and B screen were both negative. No recent hospitalization for COPD exacerbation. No other constitutional symptoms. The patient admits to smoke about half pack of ci garettes on a daily basis. On 04/20/2020, the patient is feeling better. The patient is less short of breath. No significant chest pain. No shortness of breath. She remains on IV Solu-Medrol. I would suggest increasing the dose back to 60 mg a push every 6 hours. She is reporting that the Perforomist and Pulmicort nebulizers are helping her quite a bit. No nausea. No vomiting. No chest pain. No altered mentation. Objective - Vital Signs Vital signs: Vital Signs Temp 98 F 04/20/20 08:43 Pulse 82 04/20/20 11:21 Resp 16 04/20/20 09:00 BP 118/67 04/20/20 08:43 Pulse Ox 94 L 04/20/20 08:43 Intake & Output 04/19/20 04/20/20 04/20/20 18:59 06:59 18:59 Intake Total 740 200 Balance 740 200 Intake: Oral 740 200 Other: Voiding Method Toilet Toilet Toilet # Voids 4 1 - Exam The patient appeared well nourished and normally developed. Vital signs as documented. Head exam is unremarkable. No scleral icterus or corneal arcus not ed. Neck is without jugular venous distension, thyromegaly, or carotid bruits. Carotid upstrokes are brisk bilaterally. Lungs are diminished breath sounds bilaterally and the patient is prolongation of exhalation phase of breathing. Cardiac exam reveals the PMI to be normally sized and situated. Rhythm is regular. First and second heart sounds normal. No murmurs, rubs or gallops. Abdominal exam reveals normal bowel sounds, no masses, no organomegaly and no aortic enlargement. Extremities are nonedematous and both femoral and pedal pulses are normal. - Labs CBC & Chem 7: 04/18/20 21:02 04/18/20 21:02 Labs: Abnormal Lab Results - Last 24 Hours (Table) 04/19/20 04/19/20 04/20/20 Range/Units 16:20 20:32 06:33 POC Glucose (mg/dL) 112 H 136 H 146 H (75-99) mg/dL Assessment and Plan Plan: 1 acute exacerbation of chronic COPD, improving slowly, the coronavirus 19 testing was negative , 2 moderately severe COPD with a baseline FEV1 of 51% of predicted maintained on Advair on outpatient basis 3 history of obesity post bariatric surgery with gastric sleeve and the patient lost significant amount of weight and her current BMI is 24.4 4 obstructive sleep apnea recovered post weight loss 5 Diabetes mellitus 6 history of glaucoma. 7 smoker Plan DuoNeb nebulized treatments around the clock Perforomist and Pulmicort nebulized treatments twice a day IV Solu Medrol 60 mg every 6 hours Antibiotic coverage with Levaquin Smoking cessation counseling Nicotine patch Oxygen therapy to maintain a saturation above 90% Resume all medications Mucinex for cough and congestion Lovenox for DVT prophylaxis Clinically the patient is improving slowly. I'll suggest continued IV Solu Medrol for another 24 hours. I think she will need another 24-48 hours of inpatient treatment with systemic steroids and bronchodilators and she was improved.
[2020-04-20 16:30] LABS: Glucose,Whole Blood 179 mg/dL (75-99)
[2020-04-20] MEDS: ACETAMINOPHEN TAB 325 MG TAB PO PRN ×2 (16:34→22:28)
--- NOTE | 2020-04-20 18:49 | P.PN ---
Progress Note - Text Progress Note Date: 04/20/20 Chief Complaint: Shortness of breath History of presenting complaint: This is a pleasant 50-year-old patient Dr. 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 Chronic stable medical conditions include diabetes, GERD, sleep apnea stopped using CPAP since he lost weight, osteoarthritis in the back and neck, anxiety depression. She's been bothered by ALLERGIES for last few days. Some wheezing. Became more short of breath progressively. 3 days ago when she a family Dr. pickard was gi gabbi steroids without much improvement. She has continued to smoke cigarettes. Denies any fever and chills. Appetite is okay. No change in bowel pattern. No headaches. No muscle aches. Significant wheezing. Presented for the same. Admitted with acute COPD exacerbation. Put on IV steroids, nebulized bronchodilators Today-breathing a bit better. Some cough. No sputum. Oral intake fair. Some chest tightness to better. Review of systems: Was done for constitutional, cardiovascular, GI, pulmonary. relevant finding as above Active Medications Acetaminophen (Acetaminophen Tab 325 Mg Tab) 650 mg PO Q6HR PRN PRN Reason: Fever and/ or Pain Last Admin: 04/20/20 16:34 Dose: 650 mg Documented by: Albuterol/Ipratropium (Ipratropium-Albuterol 3 Ml Neb) 3 ml INHALATION RT-Q4H PRN PRN Reason: Shortness Of Breath Or Wheezing Albuterol/Ipratropium (Ipratropium-Albuterol 3 Ml Neb) 3 ml INHALATION RT-Q4H [facility] Last Admin: 04/20/20 15:37 Dose: 3 ml Documented by: Alprazolam (Alprazolam 0.5 Mg Tab) 0.5 mg PO BID PRN PRN Reason: Anxiety Atorvastatin Calcium (Atorvastatin 20 Mg Tab) 20 mg PO HS PENDING SALE TO [facility] Last Admin: 04/19/20 20:51 Dose: 20 mg Documented by: Budesonide (Budesonide 1 Mg/2 Ml Nebu) 1 mg INHALATION RT-BID [facility] Last Admin: 04/20/20 07:26 Dose: 1 mg Documented by: Enoxaparin Sodium (Enoxaparin 40 Mg/0.4 Ml Syringe) 40 mg SQ HS [facility] TO [facility] Last Admin: 04/19/20 20:52 Dose: 40 mg Documented by: Formoterol Fumarate (Formoterol Fumarate 20 Mcg/2 Ml Nebu) 20 mcg INHALATION RT-BID [facility] TO [facility] Last Admin: 04/20/20 07:26 Dose: 20 mcg Documented by: Guaifenesin (Guaifenesin 600 Mg Tablet.Er) 1,200 mg PO Q12HR [facility] TO [facility] Last Admin: 04/20/20 08:49 Dose: 1,200 mg Documented by: Sodium Chloride (Saline 0.9%) 1,000 mls @ 75 mls/hr IV .[id number] [facility]END[facility] TO [facility] Last Admin: 04/20/20 11:29 Dose: 75 mls/hr Documented by: Insulin Aspart (Insulin Aspart (Novolog) 100 Unit/Ml Vial) 0 unit SQ ACHS [facility]; Protocol Last Admin: 04/20/20 16:35 Dose: 4 unit Documented by: Ketotifen Fumarate (Ketotifen 0.025% Ophth Drops 5 Ml Btl) 1 drops LEFT EYE BID PRN PRN Reason: Itching Levofloxacin (Levofloxacin 750 Mg Tab) 750 mg PO Q24H [facility] TO [facility] Methylprednisolone Sodium Succinate (Methylprednisolone Sod Succi 125 Mg/2 Ml Vial) 60 mg IV Q6HR [facility] Last Admin: 04/20/20 17:04 Dose: 60 mg Documented by: Nicotine (Nicotine 21mg/24hr Patch) 1 patch TRANSDERM DAILY [facility] Last Admin: 04/20/20 08:49 Dose: 1 patch Documented by: Nicotine Polacrilex (Nicotine Polacrilex 2 Mg Gum) 2 mg BUCCAL Q4HR PRN PRN Reason: Nicotine Cravings Physical examination: VITAL SIGNS: 38.3, 75, 20, 1 22 x 6 2, 95% 2 L GENERAL: BMI 24.4, sitting up in bed, less short of breath EYES: Pupils equal. Conjunctiva normal. HEENT: External appearance of nose and ears normal, oral cavity grossly normal. NECK: JVD not raised; masses not palpable. HEART: First and second heart sounds are normal; no edema. LUNGS: Respiratory rate increased, some improvement in air entry, on prolonged expiration. ABDOMEN: Soft, nontender, liver spleen not palpable, no masses palpable. PSYCH: Alert and oriented x3; mood and affect normal. INVESTIGATIONS, reviewed in the clinical context: White count 14.7 hemoglobin 15.9 platelets 290 increased neutrophils potassium 4.2 bun 19 creatinine 0.7 to Lactic acid 2.1 Troponin I less than 0.012 COVID 19 P/Cr-not detected Influenza type A type B both negative EKG tracing personally reviewed by me-normal sinus rhythm Chest x-ray film personally reviewed by me-possible chronic changes Assessment: -Acute COPD exacerbation in a current smoker -Chronic nicotine dependence patient cigarette smoker -Diabetes mellitus type 2 -GERD -Anxiety depression otherwise specified -Type II lactic acidosis Plan: Continue nebulized bronchodilators every 4 hours, long-acting beta agonist nebulizer, IV Solu-Medrol, Lovenox for DVT prophylaxis. Seen by pulmonary. Discussed with the patient. Possible discharge tomorrow. Encouraged to ambulate in the room.
[2020-04-20 19:46] LABS: Glucose,Whole Blood 249 mg/dL (75-99)
[2020-04-20] MEDS: LEVOFLOXACIN 750 MG TAB PO SCH (20:06)
[2020-04-20] MEDS: ENOXAPARIN 40 MG/0.4 ML SYRINGE SQ SCH (20:06)
[2020-04-20] MEDS: ATORVASTATIN 20 MG TAB PO SCH (20:06)
[2020-04-21] MEDS: IPRATROPIUM-ALBUTEROL 3 ML NEB INHALATION SCH ×7 (00:17→23:44)
[2020-04-21] MEDS: methylPREDNISolone SOD SUCCI 125 MG/2 ML VIAL IV SCH ×4 (01:30→17:08)
[2020-04-21 06:31] LABS: Glucose,Whole Blood 175 mg/dL (75-99)
[2020-04-21] MEDS: INSULIN ASPART (NovoLOG) 100 UNIT/ML VIAL SQ SCH ×4 (06:32→21:05)
[2020-04-21] MEDS: BUDESONIDE 1 MG/2 ML NEBU INHALATION SCH ×2 (08:03→19:31)
[2020-04-21] MEDS: FORMOTEROL FUMARATE 20 MCG/2 ML NEBU INHALATION SCH ×2 (08:03→19:31)
[2020-04-21] MEDS: guaiFENesin 600 MG TABLET.ER PO SCH ×2 (08:48→21:15)
[2020-04-21] MEDS: NICOTINE 21MG/24HR PATCH TRANSDERM SCH (08:49)
[2020-04-21 11:48] LABS: Glucose,Whole Blood 119 mg/dL (75-99)
[2020-04-21] MEDS: ACETAMINOPHEN TAB 325 MG TAB PO PRN ×2 (12:31→21:15)
--- NOTE | 2020-04-21 14:01 | P.PN ---
Subjective Progress Note Date: 04/21/20 50-year-old female patient, a chronic smoker with known history of COPD whereas been maintained on Advair and outpatient basis. She also utilizes oxygen as needed and she has albuterol nebulized that she utilize on a when necessary basis. She has seen our office in regards to her COPD. The patient is coming in with few days worth of increased dyspnea cough chest tightness and wheezing. No fever. No chills. No angina. No pleurisy. No palpitation. No swelling lower extremities. Executive for COPD exacerbation is not clear at this point in time. The chest x-ray is consistent with COPD. She did have some mild leukocytosis with a white cell count 14.7. Initial lactic acid level was at 2.5 and dropped down to 1.5. Blood work was within normal limits. The ashley virus covid 19 testing came back negative. Influenza A and B screen were both negative. No recent hospitalization for COPD exacerbation. No other constitutional symptoms. The patient admits to smoke about half pack of ci garettes on a daily basis. On 04/20/2020, the patient is feeling better. The patient is less short of breath. No significant chest pain. No shortness of breath. She remains on IV Solu-Medrol. I would suggest increasing the dose back to 60 mg a push every 6 hours. She is reporting that the Perforomist and Pulmicort nebulizers are helping her quite a bit. No nausea. No vomiting. No chest pain. No altered mentation. On 04/21/2020, the patient's pulse ox is improved and the patient is maintaining a +90% on room air oxygen. Nevertheless, she is still having some congestion chest that is so wheezing. The patient on Solu-Medrol 60 mg every 6 hours. She feels that she would benefit from another 24 hours of inpatient steroid treatment. She is benefiting from a combination of Pulmicort and Perforomist nebulized treatment twice a day and DuoNeb nebulized treatments every 4 hours. IV Solu Medrol is still at a dose of 60 mg every 6. No chills. No fever. No chest pain. I have reduced IV fluids to KVO. No other significant events overnight for now. Objective - Vital Signs Vital signs: Vital Signs Temp 98.3 F 04/21/20 07:50 Pulse 79 04/21/20 11:18 Resp 20 04/21/20 09:00 BP 124/65 04/21/20 07:50 Pulse Ox 91 L 04/21/20 10:46 Intake & Output 04/20/20 04/21/20 04/21/20 18:59 06:59 18:59 Intake Total 200 300 Balance 200 300 Intake: Oral 200 300 Other: Voiding Method Toilet Toilet Toilet # Voids 2 1 - Exam The patient appeared well nourished and normally developed. Vital signs as documented. Head exam is unremarkable. No scleral icterus or corneal arcus noted. Neck is without jugular venous distension, thyromegaly, or carotid bruits. Carotid upstrokes are brisk bilaterally. Lungs are diminished breath sounds bilaterally and the patient is prolongation of exhalation phase of breathing. Cardiac exam reveals the PMI to be normally sized and situated. Rhythm is regular. First and second heart sounds normal. No murmurs, rubs or gallops. Abdominal exam reveals normal bowel sounds, no masses, no organomegaly and no aortic enlargement. Extremities are nonedematous and both femoral and pedal pulses are normal. - Labs CBC & Chem 7: 04/18/20 21:02 04/18/20 21:02 Labs: Abnormal Lab Results - Last 24 Hours (Table) 04/20/20 04/20/20 04/21/20 Range/Units 16:29 19:34 06:22 POC Glucose (mg/dL) 179 H 249 H 175 H (75-99) mg/dL 04/21/20 Range/Units 11:47 POC Glucose (mg/dL) 119 H (75-99) mg/dL Assessment and Plan Plan: 1 acute exacerbation of chronic COPD, improving slowly, the coronavirus 19 testing was negative, improving and the patient's vaccinations improved and the patient is able to maintain a pulse ox above 90% on room air oxygen. , 2 moderately severe COPD with a baseline FEV1 of 51% of predicted maintained on Advair on outpatient basis 3 history of obesity post bariatric surgery with gastric sleeve and the patient lost significant amount of weight and her current BMI is 24.4 4 obstructive sleep apnea recovered post weight loss 5 Diabetes mellitus 6 history of glaucoma. 7 smoker Plan DuoNeb nebulized treatments around the clock Perforomist and Pulmicort nebulized treatments twice a day IV Solu Medrol 60 mg every 6 hours for another 24 hours and was used to to a prednisone burst taper as of tomorrow Antibiotic coverage with Levaquin Smoking cessation counseling Nicotine patch Oxygen therapy to maintain a saturation above 90%, patient is able to maintain a saturation above 90% on today's evaluation Resume all medications Mucinex for cough and congestion Lovenox for DVT prophylaxis I think she will need another 24 hours of inpatient treatment with systemic steroids and bronchodilators and she was improved. Her oxygenation is also improved.
[2020-04-21] MEDS ORDERED: FLUCONAZOLE 150 MG TAB PO STA (15:10)
[2020-04-21] MEDS ORDERED: LACTULOSE 20 GM/30 ML CUP PO ONE (15:11)
[2020-04-21 16:11] LABS: Glucose,Whole Blood 133 mg/dL (75-99)
--- NOTE | 2020-04-21 17:36 | P.PN ---
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 Chronic stable medical conditions include diabetes, GERD, sleep apnea stopped using CPAP since he lost weight, osteoarthritis in the back and neck, anxiety depression. She's been bothered by ALLERGIES for last few days. Some wheezing. Became more short of breath progressively. 3 days ago when she a family Dr. pickard was gi gabbi steroids without much improvement. She has continued to smoke cigarettes. Denies any fever and chills. Appetite is okay. No change in bowel pattern. No headaches. No muscle aches. Significant wheezing. Presented for the same. Admitted with acute COPD exacerbation. Put on IV steroids, nebulized bronchodilators Today-still has some wheezing and chest tightness. Cough. Some shortness of breath. Has been out of bed. Review of systems: Was done for constitutional, cardiovascular, GI, pulmonary. relevant finding as above Active Medications Acetaminophen (Acetaminophen Tab 325 Mg Tab) 650 mg PO Q6HR PRN PRN Reason: Fever and/ or Pain Last Admin: 04/21/20 12:31 Dose: 650 mg Documented by: Albuterol/Ipratropium (Ipratropium-Albuterol 3 Ml Neb) 3 ml INHALATION RT-Q4H PRN PRN Reason: Shortness Of Breath Or Wheezing Albuterol/Ipratropium (Ipratropium-Albuterol 3 Ml Neb) 3 ml INHALATION RT-Q4H [facility] Last Admin: 04/21/20 15:17 Dose: 3 ml Documented by: Alprazolam (Alprazolam 0.5 Mg Tab) 0.5 mg PO BID PRN PRN Reason: Anxiety Atorvastatin Calcium (Atorvastatin 20 Mg Tab) 20 mg PO HS [facility] Last Admin: 04/20/20 20:06 Dose: 20 mg Documented by: Budesonide (Budesonide 1 Mg/2 Ml Nebu) 1 mg INHALATION RT-BID [facility] Last Admin: 04/21/20 08:03 Dose: 1 mg Documented by: Enoxaparin Sodium (Enoxaparin 40 Mg/0.4 Ml Syringe) 40 mg SQ HS [facility] Last Admin: 04/20/20 20:06 Dose: 40 mg Documented by: Formoterol Fumarate (Formoterol Fumarate 20 Mcg/2 Ml Nebu) 20 mcg INHALATION RT-BID [facility] Last Admin: 04/21/20 08:03 Dose: 20 mcg Documented by: Guaifenesin (Guaifenesin 600 Mg Tablet.Er) 1,200 mg PO Q12HR [facility] Last Admin: 04/21/20 08:48 Dose: 1,200 mg Documented by: Sodium Chloride (Saline 0.9%) 1,000 mls @ 10 mls/hr IV .Q24H [facility] Last Admin: 04/20/20 23:45 Dose: 75 mls/hr Documented by: Insulin Aspart (Insulin Aspart (Novolog) 100 Unit/Ml Vial) 0 unit SQ [facility]; Protocol Last Admin: 04/21/20 17:08 Dose: 1 unit Documented by: Ketotifen Fumarate (Ketotifen 0.025% Ophth Drops 5 Ml Btl) 1 drops LEFT EYE BID PRN PRN Reason: Itching Levofloxacin (Levofloxacin 750 Mg Tab) 750 mg PO Q24H [facility] Last Admin: 04/20/20 20:06 Dose: 750 mg Documented by: Methylprednisolone Sodium Succinate (Methylprednisolone Sod Succi 125 Mg/2 Ml Vial) 60 mg IV Q6HR [facility] Last Admin: 04/21/20 17:08 Dose: 60 mg Documented by: Nicotine (Nicotine 21mg/24hr Patch) 1 patch TRANSDERM DAILY [facility] Last Admin: 04/21/20 08:49 Dose: 1 patch Documented by: Nicotine Polacrilex (Nicotine Polacrilex 2 Mg Gum) 2 mg BUCCAL Q4HR PRN PRN Reason: Nicotine Cravings Physical examination: VITAL SIGNS: 97.9, 74, 16, 1 4196, 94% room air GENERAL:, sitting up in bed, less short of breath EYES: Pupils equal. Conjunctiva normal. HEENT: External appearance of nose and ears normal, oral cavity grossly normal. NECK: JVD not raised; masses not palpable. HEART: First and second heart sounds are normal; no edema. LUNGS: Respiratory rate increased, decreased air entry, prolonged expiration. Some wheezing ABDOMEN: Soft, nontender, liver spleen not palpable, no masses palpable. PSYCH: Alert and oriented x3; mood and affect normal. INVESTIGATIONS, reviewed in the clinical context: White count 14.7 hemoglobin 15.9 platelets 290 increased neutrophils potassium 4.2 bun 19 creatinine 0.7 to Lactic acid 2.1 Troponin I less than 0.012 COVID 19 P/Cr-not detected Influenza type A type B both negative EKG tracing personally reviewed by me-normal sinus rhythm Chest x-ray film personally reviewed by me-possible chronic changes Assessment: -Acute COPD exacerbation in a current smoker-slowly improving -Chronic nicotine dependence patient cigarette smoker -Diabetes mellitus type 2 -GERD -Anxiety depression otherwise specified -Type II lactic acidosis Plan: Continue nebulized bronchodilators every 4 hours, long-acting beta agonist nebulizer, IV Solu-Medrol, Lovenox for DVT prophylaxis. Watch for another 24 hours.
[2020-04-21] MEDS: SODIUM CHLORIDE 0.9% 1,000 ML IV SCH (20:56)
[2020-04-21 21:04] LABS: Glucose,Whole Blood 121 mg/dL (75-99)
[2020-04-21] MEDS: ENOXAPARIN 40 MG/0.4 ML SYRINGE SQ SCH (21:14)
[2020-04-21] MEDS: LEVOFLOXACIN 750 MG TAB PO SCH (21:15)
[2020-04-21] MEDS: ATORVASTATIN 20 MG TAB PO SCH (21:15)
[2020-04-22] MEDS: methylPREDNISolone SOD SUCCI 125 MG/2 ML VIAL IV SCH ×3 (00:14→12:14)
[2020-04-22] MEDS: IPRATROPIUM-ALBUTEROL 3 ML NEB INHALATION SCH ×3 (03:50→11:41)
[2020-04-22 06:18] LABS: Glucose,Whole Blood 175 mg/dL (75-99)
[2020-04-22] MEDS: INSULIN ASPART (NovoLOG) 100 UNIT/ML VIAL SQ SCH ×2 (06:40→12:15)
[2020-04-22] MEDS: FORMOTEROL FUMARATE 20 MCG/2 ML NEBU INHALATION SCH (07:21)
[2020-04-22] MEDS: BUDESONIDE 1 MG/2 ML NEBU INHALATION SCH (07:21)
[2020-04-22 08:25] VITALS: BP 124/75; RESP 16; TEMP 97.6
[2020-04-22] MEDS: NICOTINE 21MG/24HR PATCH TRANSDERM SCH (08:33)
[2020-04-22] MEDS: guaiFENesin 600 MG TABLET.ER PO SCH (08:33)
[2020-04-22] MEDS: ACETAMINOPHEN TAB 325 MG TAB PO PRN (10:27)
[2020-04-22 11:49] LABS: Glucose,Whole Blood 141 mg/dL (75-99)
[2020-04-22 11:54] VITALS: PULSE 88
--- NOTE | 2020-04-22 13:59 | P.PN ---
Subjective Progress Note Date: 04/22/20 Principal diagnosis: Acute exacerbation of COPD 50-year-old female patient, a chronic smoker with known history of COPD whereas been maintained on Advair and outpatient basis. She also utilizes oxygen as needed and she has albuterol nebulized that she utilize on a when necessary basis. She has seen our office in regards to her COPD. The patient is coming in with few days worth of increased dyspnea cough chest tightness and wheezing. No fever. No chills. No angina. No pleurisy. No palpitation. No swelling lower extremities. Executive for COPD exacerbation is not clear at this point in time. The chest x-ray is consistent with COPD. She did have some mild leukocytosis with a white cell count 14.7. Initial lactic acid level was at 2.5 and dropped down to 1.5. Blood work was within normal limits. The ashley virus covid 19 testing came back negative. Influenza A and B screen were both negative. No recent hospitalization for COPD exacerbation. No other c onstitutional symptoms. The patient admits to smoke about half pack of cigarettes on a daily basis. On 04/20/2020, the patient is feeling better. The patient is less short of breath. No significant chest pain. No shortness of breath. She remains on IV Solu-Medrol. I would suggest increasing the dose back to 60 mg a push every 6 hours. She is reporting that the Perforomist and Pulmicort nebulizers are helping her quite a bit. No nausea. No vomiting. No chest pain. No altered mentation. On 04/21/2020, the patient's pulse ox is improved and the patient is maintaining a +90% on room air oxygen. Nevertheless, she is still having some congestion chest that is so wheezing. The patient on Solu-Medrol 60 mg every 6 hours. She feels that she would benefit from another 24 hours of inpatient steroid treatment. She is benefiting from a combination of Pulmicort and Perforomist nebulized treatment twice a day and DuoNeb nebulized treatments every 4 hours. IV Solu Medrol is still at a dose of 60 mg every 6. No chills. No fever. No chest pain. I have reduced IV fluids to KVO. No other significant events overnight for now. Reevaluated today on 04/22/20, patient is doing much better, breathing easier, less cough and less wheezing less shortness of breath. Remains maximized on bronchodilators as listed above. Patient is actually cleared from our perspective to be discharged home today. O2 saturation is 92% on room air. Patient is not having any significant pulmonary symptoms except for intermittent cough. Objective - Vital Signs Vital signs: Vital Signs Temp 97.6 F 04/22/20 08:24 Pulse 88 04/22/20 11:53 Resp 16 04/22/20 09:00 BP 124/75 04/22/20 08:24 Pulse Ox 92 L 04/22/20 08:24 Intake & Output 04/21/20 04/22/20 04/22/20 18:59 06:59 18:59 Intake Total 500 250 Balance 500 250 Intake: Oral 500 250 Other: Voiding Method Toilet Toilet Toilet # Voids 1 1 1 # Bowel Movements 1 1 - Exam Physical Exam: Revealed a 50-year-old female in no distress. On room air. Head: Atraumatic, normocephalic. HEENT:[Neck is supple.] [No neck masses.] [No thyromegaly.] [No JVD.] Chest: [Symmetrical chest expansion., rhonchi on forced expiratory maneuver. Cardiac Exam: [Normal S1 and S2, no S3 gallop, no murmur.] Abdomen: [Soft, nontender, no megaly, no rebound, no guarding, normal bowel sounds.] Extremities: [No clubbing, no edema, no cyanosis.] Neurological Exam: [No focal neurologic deficit.] Alert and oriented 3. Psychiatric: Normal mood affect and normal mental status examination. Skin: No rashes. - Labs CBC & Chem 7: 04/18/20 21:02 04/18/20 21:02 Labs: Abnormal Lab Results - Last 24 Hours (Table) 04/21/20 04/21/20 04/22/20 Range/Units 16:09 21:03 06:17 POC Glucose (mg/dL) 133 H 121 H 175 H (75-99) mg/dL 04/22/20 Range/Units 11:48 POC Glucose (mg/dL) 141 H (75-99) mg/dL Assessment and Plan Assessment: Impression: Acute exacerbation of COPD Moderate severe COPD with FEV1 of 51% History of type 2 diabetes. History of glaucoma. Smoker. Recommendation: Patient could be considered for discharge home today on prednisone 40 mg tapered over 2 weeks. Patient is to resume her bronchodilators at home. Continue Mucinex. Follow-up on outpatient basis with Dr. Olmstead Cleared for discharge home today Time with Patient: Less than 30
--- NOTE | 2020-04-23 23:37 | P.DS ---
Providers Date of admission: 04/20/20 14:23 Expected date of discharge: 04/22/20 Attending physician: Ashok Holguin Consults: 04/18/20 21:55 Consult Physician Routine Consulting Provider: Barrie Olmstead Consult Reason/Comments: COPD exacerbation Do you want consulting provider notified?: Yes Primary care physician: Julio Acosta [facility] Course: Chief Complaint: Shortness of breath History of presenting complaint: This is a pleasant 50-year-old patient Dr. acosta from [place]. Chronic stable medical conditions include diabetes, GERD, sleep apnea stopped using CPAP since he lost weight, osteoarthritis in the back and neck, anxiety depression. She's been bothered by ALLERGIES for last few days. Some wheezing. Became more short of breath progressively. 3 days ago when she a family Dr. acosta was given steroids without much improvement. She has continued to smoke cigarettes. Denies any fever and chills. Appetite is okay. No change in bowel pattern. No headaches. No muscle aches. Significant wheezing. Presented for the same. Admitted with acute COPD exacerbation. Put on IV steroids, nebulized bronchodilators Today-doing better. Wheezing improved. Discussed with the patient. Advised against smoking. consultation: Dr. Peralta and partners from pulmonary Physical examination: VITAL SIGNS: 97.6, 84, 16, 124/75, 92% room air GENERAL:, sitting up in bed, less short of breath EYES: Pupils equal. Conjunctiva normal. HEENT: External appearance of nose and ears normal, oral cavity grossly normal. NECK: JVD not raised; masses not palpable. HEART: First and second heart sounds are normal; no edema. LUNGS: Respiratory ratenormal, decreased air entry, mild wheezing ABDOMEN: Soft, nontender, liver spleen not palpable, no masses palpable. PSYCH: Alert and oriented x3; mood and affect normal. INVESTIGATIONS, reviewed in the clinical context: White count 14.7 hemoglobin 15.9 platelets 290 increased neutrophils potassium 4.2 bun 19 creatinine 0.7 to Lactic acid 2.1 Troponin I less than 0.012 COVID 19 P/Cr-not detected Influenza type A type B both negative EKG tracing personally reviewed by me-normal sinus rhythm Chest x-ray film personally reviewed by me-possible chronic changes Assessment: -Acute COPD exacerbation in a current smoker-POA -Chronic nicotine dependence patient cigarette smoker -Diabetes mellitus type 2 -GERD -Anxiety depression otherwise specified -Type II lactic acidosis disposition: Home Patient Condition at Discharge: Stable Plan - Discharge Summary Discharge Rx Participant: No New Discharge Prescriptions: New Nicotine 21Mg/24Hr Patch [Habitrol] 1 patch TRANSDERM DAILY #14 patch predniSONE 10 mg PO DAILY #30 tab Continue Fluticasone/Salmeterol [Advair 500-50 Diskus] 1 puff INHALATION RT-BID Hydrocodone/Acetaminophen [[place] 10-325] 1 tab PO Q8H PRN PRN Reason: Pain guaiFENesin [Mucinex] 600 mg PO BID PRN PRN Reason: Cold Symptoms Albuterol Sulfate [Ventolin HFA] 2 puff INHALATION RT-Q4H PRN PRN Reason: Shortness Of Breath ALPRAZolam [Xanax] 0.5 mg PO BID PRN PRN Reason: Anxiety Albuterol Nebulized [Ventolin Nebulized] 2.5 mg INHALATION RT-QID PRN PRN Reason: Shortness Of Breath Ipratropium-Albuterol Nebulize [Duoneb 0.5 mg-3 mg/3 ml Soln] 3 ml INHALATION RT-QID PRN PRN Reason: Shortness Of Breath Bepreve 1.5% Eye Drops 1 drop LEFT EYE BID PRN PRN Reason: Itching Atorvastatin [Lipitor] 20 mg PO HS Vitamin D (Unknown Strength) 1 tab PO DAILY Vitamin C (Unknown Strength) 1 tab PO DAILY Discontinued predniSONE See Taper PO DIRECTED diphenhydrAMINE [Benadryl] 25 mg PO DAILY PRN PRN Reason: Allergy Symptoms Azithromycin [Zithromax] 500 mg PO DAILY Levofloxacin [Levaquin] 750 mg PO DAILY Discharge Medication List Fluticasone/Salmeterol [Advair 500-50 Diskus] 1 puff INHALATION RT-BID 03/24/15 [History] Hydrocodone/Acetaminophen [[place] 10-325] 1 tab PO Q8H PRN 02/14/16 [History] ALPRAZolam [Xanax] 0.5 mg PO BID PRN 02/16/20 [History] Albuterol Nebulized [Ventolin Nebulized] 2.5 mg INHALATION RT-QID PRN 02/16/20 [History] Albuterol Sulfate [Ventolin HFA] 2 puff INHALATION RT-Q4H PRN 02/16/20 [History] guaiFENesin [Mucinex] 600 mg PO BID PRN 02/16/20 [History] Atorvastatin [Lipitor] 20 mg PO HS 04/18/20 [History] Bepreve 1.5% Eye Drops 1 drop LEFT EYE BID PRN 04/18/20 [History] Ipratropium-Albuterol Nebulize [Duoneb 0.5 mg-3 mg/3 ml Soln] 3 ml INHALATION RT-QID PRN 04/18/20 [History] Vitamin C (Unknown Strength) 1 tab PO DAILY 04/18/20 [History] Vitamin D (Unknown Strength) 1 tab PO DAILY 04/18/20 [History] Nicotine 21Mg/24Hr Patch [Habitrol] 1 patch TRANSDERM DAILY #14 patch 04/22/20 [Rx] predniSONE 10 mg PO DAILY #30 tab 04/22/20 [Rx] Follow up Appointment(s)/Referral(s): [facility] [NON-STAFF] - As Needed (Nebulizer. Please also call to follow up on home oxygen.) Barrie Olmstead DO [Doctor of Osteopathic Medicine] - 05/13/20 11:30 am Julio Acosta MD [REFERRING] - 1 Week (message left at office to call with appointment time) Patient Instructions/Handouts: How to Stop Smoking (DC), COPD (Chronic Obstructive Pulmonary Disease) (DC)
== END 2020-04-22 13:28 | disposition home or self-care (01) | DRG 191 ==
LOC: EC 19:31 → 1SOBS 22:05 → OBSVTOIN 04-20 14:23
PROVIDERS: ADMIT Hospitalist; ATTEND Hospitalist
DX: J44.1 Chronic obstructive pulmonary disease with (acute) exacerbation (principal); E87.2 Acidosis; E11.39 Type 2 diabetes mellitus with other diabetic ophthalmic complication; Z20.828 Contact with and (suspected) exposure to other viral communicable diseases; G47.33 Obstructive sleep apnea (adult) (pediatric); H40.9 Unspecified glaucoma; H42 Glaucoma in diseases classified elsewhere; M47.9 Spondylosis, unspecified; F41.8 Other specified anxiety disorders; K21.9 Gastro-esophageal reflux disease without esophagitis; F17.210 Nicotine dependence, cigarettes, uncomplicated; Z71.6 Tobacco abuse counseling; Z99.81 Dependence on supplemental oxygen; Z79.51 Long term (current) use of inhaled steroids; Z79.899 Other long term (current) drug therapy; Z87.01 Personal history of pneumonia (recurrent); Z98.84 Bariatric surgery status; Z98.891 History of uterine scar from previous surgery; Z98.51 Tubal ligation status; Z87.2 Personal history of diseases of the skin and subcutaneous tissue; Z98.890 Other specified postprocedural states; Z91.041 Radiographic dye allergy status; Z88.0 Allergy status to penicillin; Z91.013 Allergy to seafood; Z91.048 Other nonmedicinal substance allergy status; Z82.5 Family history of asthma and other chronic lower respiratory diseases; Z80.3 Family history of malignant neoplasm of breast; Z82.49 Family history of ischemic heart disease and other diseases of the circulatory system
CPT/HCPCS: 36415; 71046; 80053; 83605; 83735; 84484; 85025; 85379; 85610; 85730; 87502; 87635; 93005; 94640; 94760; 96361; 96365; 96375; 99285

== ENCOUNTER → 2020-12-20 | Outpatient (CLI) | payer OTHER | END | disposition home or self-care (01) | LOC: LABMAIN 18:46 | PROVIDERS: ATTEND Nurse Practitioner Adult Health | DX: Z53.9 Procedure and treatment not carried out, unspecified reason (principal) ==

== ENCOUNTER 2021-01-26 18:21 | Observation (INO) | payer OTHER ==
[2021-01-26] MEDS ORDERED: methylPREDNISolone SOD SUCCI 125 MG/2 ML VIAL IV STA (18:59)
[2021-01-26] MEDS ORDERED: IPRATROPIUM-ALBUTEROL 3 ML NEB INHALATION STA ×2 (18:59→20:13)
--- NOTE | 2021-01-26 19:04 | ED ---
General Adult HPI - General Chief complaint: Upper Respiratory Infection Stated complaint: BRADY Time Seen by Provider: 01/26/21 18:45 Source: patient, RN notes reviewed Mode of arrival: ambulatory Limitations: no limitations - History of Present Illness Initial comments: Patient is a pleasant 50-year-old female presenting to the emergency Department with complaints of difficulty in breathing. Patient has been having symptoms for the past several weeks and months. Patient just finished steroids. Patient is currently on Levaquin. Patient does have cough with occasional yellow sputum. Patient states it is difficult to bring up the sputum at times. Patient feels she had a fever a couple of days ago. Patient does have history of similar symptoms previously associated with COPD. - Related Data Home Medications Medication Instructions Recorded Confirmed Fluticasone/Salmeterol [Advair 1 puff INHALATION RT-BID 03/24/15 04/18/20 500-50 Diskus] Hydrocodone/Acetaminophen [[place] 1 tab PO Q8H PRN 02/14/16 04/18/20 10-325] ALPRAZolam [Xanax] 0.5 mg PO BID PRN 02/16/20 04/18/20 Albuterol Nebulized [Ventolin 2.5 mg INHALATION RT-QID PRN 02/16/20 04/18/20 Nebulized] Albuterol Sulfate [Ventolin HFA] 2 puff INHALATION RT-Q4H PRN 02/16/20 04/18/20 guaiFENesin [Mucinex] 600 mg PO BID PRN 02/16/20 04/18/20 Atorvastatin [Lipitor] 20 mg PO HS 04/18/20 04/18/20 Bepreve 1.5% Eye Drops 1 drop LEFT EYE BID PRN 04/18/20 04/18/20 Ipratropium-Albuterol Nebulize 3 ml INHALATION RT-QID PRN 04/18/20 04/18/20 [Duoneb 0.5 mg-3 mg/3 ml Soln] Vitamin C (Unknown Strength) 1 tab PO DAILY 04/18/20 04/18/20 Vitamin D (Unknown Strength) 1 tab PO DAILY 04/18/20 04/18/20 Previous Rx's Medication Instructions Recorded Nicotine 21Mg/24Hr Patch [Habitrol] 1 patch TRANSDERM DAILY #14 patch 04/22/20 predniSONE 10 mg PO DAILY #30 tab 04/22/20 Allergies Allergy/AdvReac Type Severity Reaction Status Date / Time Penicillins Allergy Rash/Hives Verified 01/26/21 18:34 pollen extracts Allergy Dyspnea Verified 01/26/21 18:34 shellfish derived [Shellfish] Allergy Anaphylaxis Verified 01/26/21 18:34 Iodinated Contrast Media AdvReac Rash/Hives Verified 01/26/21 18:34 Review of Systems ROS Statement: Those systems with pertinent positive or pertinent negative responses have been documented in the HPI. ROS Other: All systems not noted in ROS Statement are negative. Constitutional: Reports: as per HPI, fever Eyes: Denies: eye pain ENT: Denies: ear pain Respiratory: Reports: cough, dyspnea Cardiovascular: Denies: chest pain Endocrine: Denies: fatigue Gastrointestinal: Denies: abdominal pain Genitourinary: Denies: dysuria Musculoskeletal: Denies: back pain Skin: Denies: rash Neurological: Denies: weakness Past Medical History Past Medical History: Asthma, COPD, Diabetes Mellitus, Eye Disorder, GERD/Reflux, Pneumonia, Sleep Apnea/CPAP/BIPAP Additional Past Medical History / Comment(s): NIDDM type II(diet controlled following wt. loss), glaucoma bilaterally, tachycardia, AKIRA with CPAP not used the machine since she lost 80 lbs post gastric sleeve, bronchitis, has O2 at home which she uses prn. 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 History of Any Multi-Drug Resistant Organisms: None Reported Past Surgical History: Bariatric Surgery, Section, Tubal Ligation Additional Past Surgical History / Comment(s): cyst removal under right breast, x 2. gastric sleeve Sx 2017. Past Anesthesia/Blood Transfusion Reactions: No Reported Reaction Past Psychological History: Anxiety, Depression Smoking Status: Current every day smoker Past Alcohol Use History: None Reported Past Drug Use History: None Reported - Past Family History Mother History Unknown: Yes Family Medical History: Cancer, COPD Additional Family Medical History / Comment(s): Breast cancer. She also has a paternal aunt with breast cancer. Father History Unknown: Yes Family Medical History: COPD, Myocardial Infarction ([place]), Vascular Disorder Additional Family Medical History / Comment(s): Father at age 64yrs. General Exam Limitations: no limitations General appearance: alert, in no apparent distress Head exam: Present: normocephalic Eye exam: Present: normal appearance Neck exam: Present: normal inspection Respiratory exam: Present: wheezes, decreased breath sounds Cardiovascular Exam: Present: regular rate, normal rhythm GI/Abdominal exam: Present: soft. Absent: tenderness Extremities exam: Present: normal inspection. Absent: pedal edema, calf tenderness Neurological exam: Present: alert Psychiatric exam: Present: normal affect, normal mood Skin exam: Present: normal color Course Vital Signs 01/26/21 01/26/21 01/26/21 18:31 19:26 19:48 Temperature 98.5 F Pulse Rate 102 H 90 Respiratory 18 22 Rate Blood Pressure 139/78 O2 Sat by Pulse 94 L Oximetry 01/26/21 20:05 Temperature Pulse Rate 90 Respiratory Rate Blood Pressure O2 Sat by Pulse Oximetry Medical Decision Making - Medical Decision Making Patient does desaturate to 85% with ambulation. Pulse ox is 91% at rest on room air. Repeat evaluation patient has continued wheezing however some improvement with air exchange. Patient is concerned regarding going home. Dr. Zhao has been paged for admission, covering for Dr. Acosta. Case was discussed with Dr. niño, who will admit. - Lab Data Result diagrams: 01/26/21 19:14 01/26/21 19:14 Lab Results 01/26/21 01/26/21 01/26/21 Range/Units 19:14 19:14 19:14 WBC 13.0 H (3.8-10.6) k/uL RBC 4.96 (3.80-5.40) m/uL Hgb 15.9 (11.4-16.0) gm/dL Hct 47.6 H (34.0-46.0) % MCV 96.1 (80.0-100.0) fL MCH 32.0 (25.0-35.0) pg MCHC 33.3 (31.0-37.0) g/dL RDW 13.8 (11.5-15.5) % Plt Count 229 (150-450) k/uL MPV 7.9 Neutrophils % 71 % Lymphocytes % 16 % Monocytes % 7 % Eosinophils % 1 % Basophils % 1 % Neutrophils # 9.2 H (1.3-7.7) k/uL Lymphocytes # 2.1 (1.0-4.8) k/uL Monocytes # 0.9 (0-1.0) k/uL Eosinophils # 0.1 (0-0.7) k/uL Basophils # 0.1 (0-0.2) k/uL Sodium 139 (137-145) mmol/L Potassium 3.6 (3.5-5.1) mmol/L Chloride 108 H (98-107) mmol/L Carbon Dioxide 26 (22-30) mmol/L Anion Gap 5 mmol/L BUN 17 (7-17) mg/dL Creatinine 0.68 (0.52-1.04) mg/dL Est GFR (CKD-EPI)AfAm >90 (>60 ml/min/1.73 sqM) Est GFR (CKD-EPI)NonAf >90 (>60 ml/min/1.73 sqM) Glucose 91 (74-99) mg/dL Plasma Lactic Acid Sesar 0.7 (0.7-2.0) mmol/L Calcium 9.0 (8.4-10.2) mg/dL Total Bilirubin 0.6 (0.2-1.3) mg/dL AST 18 (14-36) U/L ALT 20 (4-34) U/L Alkaline Phosphatase 112 (38-126) U/L Total Protein 6.2 L (6.3-8.2) g/dL Albumin 3.8 (3.5-5.0) g/dL Coronavirus (PCR) (Not Detectd) 01/26/21 Range/Units 19:14 WBC (3.8-10.6) k/uL RBC (3.80-5.40) m/uL Hgb (11.4-16.0) gm/dL Hct (34.0-46.0) % MCV (80.0-100.0) fL MCH (25.0-35.0) pg MCHC (31.0-37.0) g/dL RDW (11.5-15.5) % Plt Count (150-450) k/uL MPV Neutrophils % % Lymphocytes % % Monocytes % % Eosinophils % % Basophils % % Neutrophils # (1.3-7.7) k/uL Lymphocytes # (1.0-4.8) k/uL Monocytes # (0-1.0) k/uL Eosinophils # (0-0.7) k/uL Basophils # (0-0.2) k/uL Sodium (137-145) mmol/L Potassium (3.5-5.1) mmol/L Chloride (98-107) mmol/L Carbon Dioxide (22-30) mmol/L Anion Gap mmol/L BUN (7-17) mg/dL Creatinine (0.52-1.04) mg/dL Est GFR (CKD-EPI)AfAm (>60 ml/min/1.73 sqM) Est GFR (CKD-EPI)NonAf (>60 ml/min/1.73 sqM) Glucose (74-99) mg/dL Plasma Lactic Acid Sesar (0.7-2.0) mmol/L Calcium (8.4-10.2) mg/dL Total Bilirubin (0.2-1.3) mg/dL AST (14-36) U/L ALT (4-34) U/L Alkaline Phosphatase (38-126) U/L Total Protein (6.3-8.2) g/dL Albumin (3.5-5.0) g/dL Coronavirus (PCR) Not Detected (Not Detectd) - Radiology Data Radiology results: image reviewed (This x-ray shows mild volume loss left base.) Disposition Clinical Impression: Acute exacerbation of chronic obstructive airways disease Disposition: ADMITTED IP TO THIS HOSP Is patient prescribed a controlled substance at d/c from ED?: No Referrals: Julio Acosta MD [Primary Care Provider] - 1-2 days Decision Time: 20:50
--- NOTE | 2021-01-26 19:33 | XR ---
EXAMINATION TYPE: XR chest 2V DATE OF EXAM: 01/26/2021 COMPARISON: 04/18/2020 HISTORY: Short of breath TECHNIQUE: 2 views FINDINGS: There is right-sided aortic arch. Heart is shifted somewhat to the left side. There is slig ht blunting left costophrenic angle. There is no pulmonary consolidation. There is no heart failure. There is slight coarsening of interstitial markings. IMPRESSION: Fibrotic changes in the left lower lobe with mild volume loss. No heart failure. No singh e compared to old exam
[2021-01-26 19:34] LABS: Basophils # (A) 0.1 k/uL (0-0.2); Basophils % (A) 1 %; Eosinophils # (A) 0.1 k/uL (0-0.7); Eosinophils % (A) 1 %; HCT 47.6 % (34.0-46.0); HGB 15.9 gm/dL (11.4-16.0); Lymphocytes # (A) 2.1 k/uL (1.0-4.8); Lymphocytes % (A) 16 %; MCHC 33.3 g/dL (31.0-37.0); MCV 96.1 fL (80.0-100.0); Mean Platelet Volume 7.9; Monocytes # (A) 0.9 k/uL (0-1.0); Monocytes % (A) 7 %; Neutrophils # (A) 9.2 k/uL (1.3-7.7); Neutrophils % (A) 71 %; Platelet Count 229 k/uL (150-450); RBC 4.96 m/uL (3.80-5.40); RDW 13.8 % (11.5-15.5)
[2021-01-26 19:42] LABS: ALT 20 U/L (4-34); AST 18 U/L (14-36); African American GFR (CKD) >90 (>60 ml/min/1.73 sqM); Albumin 3.8 g/dL (3.5-5.0); Alkaline Phosphatase 112 U/L (38-126); Anion Gap 5 mmol/L; Blood Urea Nitrogen 17 mg/dL (7-17); Carbon Dioxide 26 mmol/L (22-30); Chloride 108 mmol/L (98-107); Glucose 91 mg/dL (74-99); Non-African American GFR(CKD) >90 (>60 ml/min/1.73 sqM); Potassium 3.6 mmol/L (3.5-5.1); Sodium 139 mmol/L (137-145); Total Bilirubin 0.6 mg/dL (0.2-1.3); Total Protein 6.2 g/dL (6.3-8.2)
[2021-01-26] MEDS ORDERED: IPRATROPIUM-ALBUTEROL 3 ML NEB INHALATION PRN (20:48)
--- NOTE | 2021-01-27 00:14 | P.HPIM ---
History of Present Illness H&P Date: 01/26/21 Patient is a 50-year-old female with a PMH of tobacco abuse, COPD, and hyperlipidemia who presents to the emergency room with complaints of shortness of breath and cough. Patient reports that she had seen her primary care physician for the above complaints multiple times over the past few months, and that she was given a course of oral Levaquin and oral steroids which she had completed few days ago with some improvement but subsequent recurrence. She reports ongoing cough productive of yellow-green phlegm and difficulty breathing. She reported significant improvement in her symptoms after receiving multiple breathing treatments in the emergency room. She reports that her symptoms are very much in line with her prior COPD exacerbations. She denied fever, chills, chest pain. Denied nausea, vomiting, abdominal pain, diarrhea. Chest x-ray in the emergency room was unremarkable with telemetry evaluation remarkable for leukocytosis of 13, and coronavirus PCR negative. Review of systems: Pertinent positives and negatives as discussed in HPI, a complete review of systems was performed and all other systems are negative. Physical examination: General: non toxic, no distress, appears at stated age, normal weight Derm: no unusual rashes/lesions no unusual ecchymoses, warm, dry Head: atraumatic, normocephalic, symmetric Eyes: EOMI, no lid lag, anicteric sclera, pupils equal round reactive to light ENT: Nose and ears atraumatic, no thrush, no pharyngeal erythema Neck: No thyromegaly, no cervical lymphadenopathy, trachea midline, supple Mouth: no lip lesion, mucus membranes moist Cardiovascular: S1S2 reg, no murmur, positive posterior tibial pulse bilateral, no edema, capillary refill less than 2 seconds Lungs: Somewhat poor air entry bilaterally with scattered rhonchi, no rales appreciated, no accessory muscle use Abdominal: soft, nontender to palpation, no guarding, no appreciable organomegaly, normal bowel sounds Ext: no gross muscle atrophy, muscle strength 5 out of 5 in all 4 extremities grossly, no contractures, Neuro: CN II-XI grossly intact, light touch intact all 4 extremities, finger to nose within normal limits, Psych: Alert, oriented, appropriate affect Assessment/plan Acute COPD exacerbation -Continue with Solu-Medrol -DuoNeb's -Pulmonary consulted -Pulmicort Leukocytosis -Likely reactive due to steroid use Chronic conditions: Hyperlipidemia, tobacco abuse -Strongly advised on importance of cessation -Continue with home medications DVT prophylaxis -Heparin subq The patient is admitted with an anticipated greater than 2 midnight stay for evaluation of COPD CODE STATUS: FUll Code Discussed with: Patient Anticipated discharge date: 2-[address]: Home Past Medical History Past Medical History: Asthma, COPD, Diabetes Mellitus, Eye Disorder, GERD/Reflux, Pneumonia, Sleep Apnea/CPAP/BIPAP Additional Past Medical History / Comment(s): NIDDM type II(diet controlled following wt. loss), glaucoma bilaterally, tachycardia, AKIRA with CPAP not used the machine since she lost 80 lbs post gastric sleeve, bronchitis, has O2 at home which she uses prn. 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 History of Any Multi-Drug Resistant Organisms: None Reported Past Surgical History: Bariatric Surgery, Section, Tubal Ligation Additional Past Surgical History / Comment(s): cyst removal under right breast, x 2. gastric sleeve Sx 2017. Past Anesthesia/Blood Transfusion Reactions: No Reported Reaction Past Psychological History: Anxiety, Depression Additional Psychological History / Comment(s): Pt resides with her spouse, daughter and grandson. She is normally independent. She uses no assistive device. She drives. She has O2 which she uses prn and a nebulizer and glucose monitor at home. Smoking Status: Current every day smoker Past Alcohol Use History: None Reported Additional Past Alcohol Use History / Comment(s): Pt states she started smoking in 1986 and quit 5 months ago. Past Drug Use History: None Reported - Past Family History Mother History Unknown: Yes Family Medical History: Cancer, COPD Additional Family Medical History / Comment(s): Breast cancer. She also has a paternal aunt with breast cancer. Father History Unknown: Yes Family Medical History: COPD, Myocardial Infarction ([place]), Vascular Disorder Additional Family Medical History / Comment(s): Father at age 64yrs. Medications and Allergies Home Medications Medication Instructions Recorded Confirmed Type ALPRAZolam [Xanax] 0.5 mg PO BID PRN 02/16/20 01/26/21 History guaiFENesin [Mucinex] 600 mg PO BID PRN 02/16/20 01/26/21 History Atorvastatin [Lipitor] 20 mg PO HS 04/18/20 01/26/21 History Ipratropium-Albuterol Nebulize 3 ml INHALATION RT-QID PRN 04/18/20 01/26/21 History [Duoneb 0.5 mg-3 mg/3 ml Soln] Budesonide/Glycopyr/Formoterol 2 puff INHALATION RT-BID 01/26/21 01/26/21 History [Breztri Aerosphere Inhaler] Levofloxacin [Levaquin] 500 mg PO DAILY 01/26/21 01/26/21 History Allergies Allergy/AdvReac Type Severity Reaction Status Date / Time Penicillins Allergy Rash/Hives Verified 01/26/21 21:04 pollen extracts Allergy Dyspnea Verified 01/26/21 21:04 shellfish derived [Shellfish] Allergy Anaphylaxis Verified 01/26/21 21:04 Iodinated Contrast Media AdvReac Rash/Hives Verified 01/26/21 21:04 Physical Exam Vitals: Vital Signs Temp Pulse Pulse Resp BP BP Pulse Ox 01/26/21 21:35 98.9 F 82 17 144/79 94 L 01/26/21 21:02 80 01/26/21 21:00 78 18 122/72 94 L 01/26/21 20:51 80 01/26/21 20:05 90 01/26/21 19:48 90 01/26/21 19:26 22 01/26/21 18:31 98.5 F 102 H 18 139/78 94 L Intake and Output 01/26/21 01/26/21 01/27/21 14:59 22:59 06:59 Other: Weight 56.699 kg Results CBC & Chem 7: 01/26/21 19:14 01/26/21 19:14 Labs: Abnormal Lab Results - Last 24 Hours (Table) 01/26/21 01/26/21 Range/Units 19:14 19:14 WBC 13.0 H (3.8-10.6) k/uL Hct 47.6 H (34.0-46.0) % Neutrophils # 9.2 H (1.3-7.7) k/uL Chloride 108 H (98-107) mmol/L Total Protein 6.2 L (6.3-8.2) g/dL Thrombosis Risk Factor Assmnt - Choose All That Apply Each Factor Represents 1 point: Age 41-60 years Other Risk Factors: No Other congenital or acquired thrombophilia - If yes, enter type in comment: No Thrombosis Risk Factor Assessment Total Risk Factor Score: 1 Thrombosis Risk Factor Assessment Level: Low Risk
[2021-01-27] MEDS ORDERED: guaiFENesin 600 MG TABLET.ER PO PRN (00:15)
[2021-01-27] MEDS: methylPREDNISolone SOD SUCCI 125 MG/2 ML VIAL IV SCH ×4 (01:22→20:01)
[2021-01-27] MEDS: ALPRAZolam 0.5 MG TAB PO PRN (01:23)
[2021-01-27] MEDS ORDERED: FLUTICASONE 110 MCG INHALER INHALATION SCH (08:00)
[2021-01-27] MEDS: HEPARIN SODIUM,PORCINE/PF 5,000 UNIT/0.5 ML SYRINGE SQ SCH ×3 (08:20→23:46)
[2021-01-27] MEDS: IPRATROPIUM-ALBUTEROL 3 ML NEB INHALATION SCH ×4 (08:24→20:36)
[2021-01-27] MEDS: FORMOTEROL FUMARATE 20 MCG/2 ML NEBU INHALATION SCH ×2 (08:39→20:37)
[2021-01-27] MEDS: AZITHROMYCIN 500 MG TAB PO SCH (12:26)
--- NOTE | 2021-01-27 12:33 | P.PN ---
Subjective Progress Note Date: 01/27/21 Patient was seen and evaluated by me this morning. She is only feeling slightly better compared to yesterday. She continues to have wheezing. Objective - Vital Signs Vital signs: Vital Signs Temp 97.6 F 01/27/21 09:36 Pulse 75 01/27/21 09:49 Resp 18 01/27/21 09:36 BP 122/72 01/27/21 09:36 Pulse Ox 97 01/27/21 09:49 Intake & Output 01/26/21 01/27/21 01/27/21 18:59 06:59 18:59 Intake Total 320 Balance 320 Weight 56.699 kg 56.699 kg Intake: Oral 320 Other: # Voids 2 - Exam General: The patient is awake and alert, in no distress Eye: there is normal conjunctiva bilaterally. Neck: The neck is supple, there is no JVD. Cardiovascular: Normal S1-S2, no S3-S4, no murmurs. Respiratory: Lungs with wheezing all over the chest Gastrointestinal: Abdomen is soft, nontender Musculoskeletal: There is no pedal edema. Neurological:. Speech is normal. Skin: Skin is warm and dry - Labs CBC & Chem 7: 01/26/21 19:14 01/26/21 19:14 Labs: Abnormal Lab Results - Last 24 Hours (Table) 01/26/21 01/26/21 Range/Units 19:14 19:14 WBC 13.0 H (3.8-10.6) k/uL Hct 47.6 H (34.0-46.0) % Neutrophils # 9.2 H (1.3-7.7) k/uL Chloride 108 H (98-107) mmol/L Total Protein 6.2 L (6.3-8.2) g/dL Assessment and Plan Assessment: This is a 50-year-old female with past medical history noted below who presented to the emergency room with worsening shortness of breath. A shunt was evaluated and admitted to the hospital for further management of her medical problems n oted below. 1. Acute COPD exacerbation: Started on IV Solu-Medrol and bronchodilators. Patient was seen and evaluated by pulmonary. Azithromycin added to her regimen. Chest x-ray showed no acute findings. 2. Chronic medical problems: Hyperlipidemia, tobacco abuse. Counseled extensively to quit
--- NOTE | 2021-01-27 13:06 | P.CNPUL ---
History of Present Illness Consult date: 01/27/21 Requesting physician: Lesley Motley Reason for consult: dyspnea, cough, asthma, COPD Chief complaint: Cough, shortness of breath, wheezing, chest tightness, and phlegm productio History of present illness: Pulmonary consultation dated 01/27/2021. 50-year-old female, well-known to me. She presented to the emergency department on January 26, complaining of increasing shortness of breath, cough, wheezing, chest tightness, and occasional phlegm production. I apparently saw her about a month ago and prescribed some prednisone and antibiotic. She also received Depo-Medrol. Anyway, she states that she got better, but then got worse again. She denies any chest pain or pressure. She denies any fever or chills currently although she states she apparently had a fever a couple days ago. The patient unfortunately did start smoking again. In addition to COPD/asthma, she has a history of obesity, status post gastric sleeve procedure, with about 100 pound weight loss, pulmonary artery atresia, and hypoplastic left lung syndrome. In addition, she has a history of diabetes mellitus, GERD, pneumonia, sleep apnea syndrome, degenerative disc disease, and benign cyst removal from breast. White count 13, hemoglobin 15.9, hematocrit 47.6, and platelet count 2 29,000. Sodium and potassium are normal. Chlorides 108, CO2 26, anion gap is 5, BUN and creatinine were 17 and 0.68. Coronavirus testing was negative. Chest x-ray show some minimal fibrotic changes in the left lower lobe. No other acute abnormality is noted. Review of Systems REVIEW OF SYSTEMS: CONSTITUTIONAL: [Negative.] NEUROLOGIC: [ Negative.] HEENT: [ Negative.] CARDIAC: [Negative.] PULMONARY: Cough, shortness of breath, chest tightness, wheezing, and phlegm production. GI: [Negative.] : [Negative.] RHEUMATOLOGIC: [ Negative.] IMMUNOLOGIC: [ Negative.] ENDOCRINE: [Negative. ] DERMATOLOGIC: [Negative.] Past Medical History Past Medical History: Asthma, COPD, Diabetes Mellitus, Eye Disorder, GERD/Reflux, Pneumonia, Sleep Apnea/CPAP/BIPAP Additional Past Medical History / Comment(s): NIDDM type II(diet controlled following wt. loss), glaucoma bilaterally, tachycardia, AKIRA with CPAP not used the machine since she lost 80 lbs post gastric sleeve, bronchitis, has O2 at home which she uses prn. 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 Past [employer] history: she has no history of STDs. History of Any Multi-Drug Resistant Organisms: None Reported Past Surgical History: Bariatric Surgery, Section, Tubal Ligation Additional Past Surgical History / Comment(s): cyst removal under right breast, x 2. gastric sleeve Sx 2017. Past Anesthesia/Blood Transfusion Reactions: No Reported Reaction Past Psychological History: Anxiety, Depression Additional Psychological History / Comment(s): Pt resides with her spouse, daughter and grandson. She is normally independent. She uses no assistive device. She drives. She has O2 which she uses prn and a nebulizer and glucose monitor at home. Smoking Status: Current every day smoker Past Alcohol Use History: None Reported Additional Past Alcohol Use History / Comment(s): Pt states she started smoking in 1986 and quit 5 months ago. Past Drug Use History: None Reported - Past Family History Mother History Unknown: Yes Family Medical History: Cancer, COPD Additional Family Medical History / Comment(s): Breast cancer. She also has a paternal aunt with breast cancer. Father History Unknown: Yes Family Medical History: COPD, Myocardial Infarction ([place]), Vascular Disorder Additional Family Medical History / Comment(s): Father at age 64yrs. Medications and Allergies Home Medications Medication Instructions Recorded Confirmed Type ALPRAZolam [Xanax] 0.5 mg PO BID PRN 02/16/20 01/26/21 History guaiFENesin [Mucinex] 600 mg PO BID PRN 02/16/20 01/26/21 History Atorvastatin [Lipitor] 20 mg PO HS 04/18/20 01/26/21 History Ipratropium-Albuterol Nebulize 3 ml INHALATION RT-QID PRN 04/18/20 01/26/21 History [Duoneb 0.5 mg-3 mg/3 ml Soln] Budesonide/Glycopyr/Formoterol 2 puff INHALATION RT-BID 01/26/21 01/26/21 History [Breztri Aerosphere Inhaler] Levofloxacin [Levaquin] 500 mg PO DAILY 01/26/21 01/26/21 History Allergies Allergy/AdvReac Type Severity Reaction Status Date / Time Penicillins Allergy Rash/Hives Verified 01/26/21 21:04 pollen extracts Allergy Dyspnea Verified 01/26/21 21:04 shellfish derived [Shellfish] Allergy Anaphylaxis Verified 01/26/21 21:04 Iodinated Contrast Media AdvReac Rash/Hives Verified 01/26/21 21:04 Physical Exam Osteopathic Statement: *. No significant issues noted on an osteopathic structural exam other than those noted in the History and Physical/Consult. Vitals: Vital Signs Temp Pulse Pulse Resp BP BP Pulse Ox 01/27/21 12:34 82 01/27/21 09:49 75 97 01/27/21 09:36 97.6 F 77 18 122/72 88 L 01/27/21 08:51 87 01/27/21 08:40 71 01/27/21 08:24 60 01/27/21 08:20 18 01/27/21 07:44 97.7 F 74 18 147/83 95 01/27/21 02:00 98.5 F 68 17 102/55 96 01/26/21 21:35 98.9 F 82 17 144/79 94 L 01/26/21 21:02 80 01/26/21 21:00 78 18 122/72 94 L 01/26/21 20:51 80 01/26/21 20:05 90 01/26/21 19:48 90 01/26/21 19:26 22 01/26/21 18:31 98.5 F 102 H 18 139/78 94 L Intake and Output 01/26/21 01/27/21 01/27/21 22:59 06:59 14:59 Intake Total 320 Balance 320 Intake: Oral 320 Other: # Voids 2 Weight 56.699 kg No acute distress, oriented 3. Nasal O2 in place at 2 L. Saturations are 97%. Saturation was only 88% on room air. HEENT examination is grossly unremarkable. Neck supple. Full range of motion. No adenopathy thyromegaly or neck vein distention. Cardiovascular examination reveals regular rhythm rate. S1-S2 normal. No S3 or S4. No discernible murmur noted. Heart rate 65 bpm. Heart sounds are distan t. Lungs reveal coarse bilateral inspiratory and expiratory wheezes and rhonchi. Breath sounds are equal bilaterally but diminished throughout. There is prolongation on forced maneuver. No crackles. Adventitious lung sounds are more prominent on forced maneuver. Abdomen soft bowel sounds are heard. No masses or tenderness. Extremities are intact. No cyanosis clubbing or edema. Skin is without rash or lesion. Neurologic examination is brief but nonfocal. Results - Laboratory Findings CBC and BMP: 01/26/21 19:14 01/26/21 19:14 Abnormal lab findings: Abnormal Labs 01/26/21 01/26/21 19:14 19:14 WBC 13.0 H Hct 47.6 H Neutrophils # 9.2 H Chloride 108 H Total Protein 6.2 L - Diagnostic Findings Chest x-ray: image reviewed Assessment and Plan Assessment: Acute hypoxemic respiratory failure secondary to COPD/asthma exacerbation. History of chronic tobacco use, with recent resumption of smoking. Obesity, status post gastric sleeve procedure, with 100 pound weight loss. History of diabetes mellitus. History of gastroesophageal reflux disease. History of pneumonia. History of sleep apnea syndrome, not currently on CPAP. Degenerative disc disease. 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 Plan: Plan dated 01/27/2021. Currently, the patient's maintained on albuterol sulfate and ipratropium bromide, Pulmicort 1 mg, and formoterol 20 g, as well as Solu-Medrol, and Zithromax. We will continue to follow and make recommendations where appropriate. Overall prognosis remains relatively good. We counseled the patient about the importance of finally quitting smoking. A nicotine patch probably would not hurt. We will continue to follow this patient. Time with Patient: Greater than 30
[2021-01-27] MEDS: ATORVASTATIN 20 MG TAB PO SCH (20:00)
[2021-01-27] MEDS: BUDESONIDE 1 MG/2 ML NEBU INHALATION SCH (20:37)
[2021-01-27] MEDS: NICOTINE 14MG/24HR PATCH TRANSDERM SCH (20:55)
[2021-01-28] MEDS: methylPREDNISolone SOD SUCCI 125 MG/2 ML VIAL IV SCH ×4 (01:39→20:07)
[2021-01-28] MEDS: HEPARIN SODIUM,PORCINE/PF 5,000 UNIT/0.5 ML SYRINGE SQ SCH ×2 (08:40→16:45)
[2021-01-28] MEDS: IPRATROPIUM-ALBUTEROL 3 ML NEB INHALATION SCH ×4 (09:20→20:24)
[2021-01-28] MEDS: FORMOTEROL FUMARATE 20 MCG/2 ML NEBU INHALATION SCH ×2 (09:20→20:34)
[2021-01-28] MEDS: BUDESONIDE 1 MG/2 ML NEBU INHALATION SCH ×2 (09:21→20:24)
[2021-01-28] MEDS ORDERED: guaiFENesin-Coden 100-10MG/5ML 10 ML CUP PO PRN (10:46)
[2021-01-28] MEDS ORDERED: NICOTINE GUM (POLACRILEX) 2 MG GUM BUCCAL PRN (10:47)
--- NOTE | 2021-01-28 11:46 | P.PN ---
Subjective Progress Note Date: 01/28/21 Principal diagnosis: COPD exacerbation 50-year-old female, well-known to me. She presented to the emergency department on January 26, complaining of increasing shortness of breath, cough, wheezing, chest tightness, and occasional phlegm production. I apparently saw her about a month ago and prescribed some prednisone and antibiotic. She also received Depo-Medrol. Anyway, she states that she got better, but then got worse again. She denies any chest pain or pressure. She denies any fever or chills currently although she states she apparently had a fever a couple days ago. The patient unfortunately did start smoking again. In addition to COPD/asthma, she has a history of obesity, status post gastric sleeve procedure, with about 100 pound weight loss, pulmonary artery atresia, and hypoplastic left lung syndrome. In addition, she has a history of diabetes mellitus, GERD, pneumonia, sleep apnea syndrome, degenerative disc disease, and benign cyst removal from breast. White count 13, hemoglobin 15.9, hematocrit 47.6, and platelet count 2 29,000. Sodium and potassium are normal. Chlorides 108, CO2 26, anion gap is 5, BUN and creatinine were 17 and 0.68. Coronavirus testing was negative. Chest x-ray show some minimal fibrotic changes in the left lower lobe. No other acute abnormality is noted. The patient is seen today 01/28/2021 in follow-up on the regular medical floor. She is awake and alert in no acute distress. Continue O2 saturations in the 90s on 2 L/m per nasal cannula. Still somewhat bronchospastic and wheezing. Continued on DuoNeb inhalations, Pulmicort and Perforomist inhalations, IV Solu- Medrol. NicoDerm patch in place. Heparin for DVT prophylaxis. Objective - Vital Signs Vital signs: Vital Signs Temp 98.3 F 01/28/21 08:25 Pulse 75 01/28/21 09:31 Resp 12 01/28/21 08:25 BP 128/65 01/28/21 08:25 Pulse Ox 97 01/28/21 09:24 Intake & Output 01/27/21 01/28/21 01/28/21 18:59 06:59 18:59 Intake Total 1000 90 Balance 1000 90 Intake: Oral 1000 90 Other: # Voids 2 1 - Exam GENERAL EXAM: Alert, 50-year-old female patient, on 2 L nasal cannula, comfortable in no apparent distress. HEAD: Normocephalic. EYES: Normal reaction of pupils, equal size. NOSE: Clear with pink turbinates. THROAT: No erythema or exudates. NECK: No masses, no JVD. CHEST: No chest wall deformity. LUNGS: Equal air entry with bilateral end expiratory wheeze, diminished. CVS: S1 and S2 normal with no audible murmur, regular rhythm. ABDOMEN: No hepatosplenomegaly, normal bowel sounds, no guarding or rigidity. SPINE: No scoliosis or deformity SKIN: No rashes CENTRAL NERVOUS SYSTEM: No focal deficits, tone is normal in all 4 extremities. EXTREMITIES: There is no peripheral edema. No clubbing, no cyanosis. Peripheral pulses are intact. - Labs CBC & Chem 7: 01/26/21 19:14 01/26/21 19:14 Assessment and Plan Assessment: 1 Acute hypoxemic respiratory failure secondary to COPD/asthma exacerbation. 2 History of chronic tobacco use, with recent resumption of smoking. 3 Obesity, status post gastric sleeve procedure, with 100 pound weight loss. 4 History of diabetes mellitus. 5 History of gastroesophageal reflux disease. 6 History of pneumonia. 7 History of sleep apnea syndrome, not currently on CPAP. 8 Degenerative disc disease. 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 Plan: The patient was seen and evaluated by Dr. Olmstead Improved but not quite back to baseline Again educated regarding importance of complete smoking cessation Continue the current treatment plan We will continue to follow I, the cosigning physician, performed a history & physical examination of the patient. Lungs sounds with bilateral end expiratory wheeze, diminished. Maintaining good O2 saturations in the 90s on 2 L/m per nasal cannula. I discussed the assessment and plan of care with my nurse practitioner, Penny Phillips. I attest to the above note as dictated by her.
[2021-01-28] MEDS: AZITHROMYCIN 500 MG TAB PO SCH (11:53)
[2021-01-28 17:59] LABS: Glucose,Whole Blood 164 mg/dL (75-99)
--- NOTE | 2021-01-28 18:35 | P.PN ---
<Heber Paul - Last Filed: 01/28/21 18:28> Subjective Progress Note Date: 01/28/21 Hospital course: Patient is a very pleasant 50-year-old female with a past medical history of C OPD and tobacco dependence smoking a reported 1 pack of cigarettes daily. Patient presented to the hospital on 01/27/21 with a chief complaint of increasing shortness of breath and cough. Patient was found to be hypoxic on room air with SpO2 of 88% requiring oxygen supplementation 2 L to maintain SpO2 92-94%. Chest x-ray was positive for fibrotic changes in the left lower lobe with mild volume loss. Patient admitted under our services for COPD exacerbation with consultation to pulmonology. Physical exam: Patient seen and fully evaluated at the bedside. Patient bronchospastic and significantly wheezy. She remains on 2 L O2 with SpO2 of 93% at time of assessment. Patient with dry nonproductive cough and reports of pain in ribs and back from excessive coughing. Patient reports continued nicotine craving despite use of patch. Additional orders placed for nicotine gum at this time. Patient also requesting something for cough and Robitussin-AC prescribed at this time. Patient to continue azithromycin, Solu-Medrol, Mucinex, and formoterol. Vital signs reviewed and stable. General: Nontoxic, no distress and appears stated age. Derm: Skin warm and dry, normal coloration for ethnicity. Head: Atraumatic, normocephalic and symmetric. Eyes: EOMs intact, no lid lag, and anicteric sclera Mouth: no lip lesions, mucus membranes moist Cardiovascular: regular rate and rhythm with normal S1S2, no murmur, positive posterior tibial pulses bilaterally, and cap refill < 2 seconds. Lungs: Respirations even, regular, and unlabored on room air. Lungs CTA bilaterally, no rhonchi, no rales, no wheezing, and no accessory muscle usage. Abdominal: soft, nontender to palpation, no guarding, no appreciable organomegaly Ext: ROM intact. No gross muscle atrophy, no edema, no contractures Neuro: Speech clear, face symmetrical and CN II-XII grossly intact with no noted focal neuro deficits Psych: Alert and oriented to person, place, time, and situation. Appropriate and pleasant affect. Assessment and Plan of Care: Acute COPD exacerbation -Oxygenation to be administered and titrated as needed to maintain SPO2 equal to or greater than 92%, wean once patient tolerates -Telemetry monitoring. -Continue formoterol -Duonebs scheduled and as needed for SOB and/or wheezing -Incentive Spirometry, encourage use 10-15 times hourly while awake. -Steroids: Solu-Medrol -Antibiotics: Azithromycin -Pulmonology following, appreciate further recommendations Nicotine dependence -Continue to educate and encourage patient on the importance of smoking cessation and risks of continued use. -Nicotine patch and Nicorette gum Hyperlipidemia -Continue daily medication regimen with atorvastatin CODE STATUS: Full code DVT prophylaxis: Heparin Discussed with: Patient and RN Anticipated discharge date: 1-[address]: Home A total of 45 minutes was spent on the care of this complex patient more than 50% of the time was spent in counseling and care coordination. Objective - Vital Signs Vital signs: Vital Signs Temp 98.3 F 01/28/21 08:25 Pulse 75 01/28/21 09:31 Resp 12 01/28/21 08:25 BP 128/65 01/28/21 08:25 Pulse Ox 97 01/28/21 09:24 Intake & Output 01/27/21 01/28/21 01/28/21 18:59 06:59 18:59 Intake Total 1000 90 Balance 1000 90 Intake: Oral 1000 90 Other: # Voids 2 1 - Labs CBC & Chem 7: 01/26/21 19:14 01/26/21 19:14 <Mikaela Villatoro - Last Filed: 01/28/21 20:04> Subjective Heber Paul NP rendered care for this patient independently, reviewed the findings and plan as documented in the note above. I did not physically speak with or examine the patient on this date. Objective - Vital Signs Vital signs: Vital Signs Temp 98.5 F 01/28/21 19:43 Pulse 66 01/28/21 19:43 Resp 16 01/28/21 19:56 BP 123/64 01/28/21 19:43 Pulse Ox 95 01/28/21 19:43 Intake & Output 01/28/21 01/28/21 01/29/21 06:59 18:59 06:59 Intake Total 90 800 90 Balance 90 800 90 Intake: Oral 90 800 90 Other: # Voids 1 3 - Labs CBC & Chem 7: 01/26/21 19:14 01/26/21 19:14 Labs: Abnormal Lab Results - Last 24 Hours (Table) 01/28/21 Range/Units 17:57 POC Glucose (mg/dL) 164 H (75-99) mg/dL
[2021-01-28] MEDS: ATORVASTATIN 20 MG TAB PO SCH (20:07)
[2021-01-28] MEDS: ALPRAZolam 0.5 MG TAB PO PRN (20:50)
[2021-01-29] MEDS: HEPARIN SODIUM,PORCINE/PF 5,000 UNIT/0.5 ML SYRINGE SQ SCH ×2 (00:02→08:27)
[2021-01-29] MEDS: methylPREDNISolone SOD SUCCI 125 MG/2 ML VIAL IV SCH ×2 (01:43→08:26)
[2021-01-29] MEDS: NICOTINE 14MG/24HR PATCH TRANSDERM SCH (08:27)
[2021-01-29 09:24] VITALS: BP 121/66; RESP 20; TEMP 98.7
[2021-01-29] MEDS: FORMOTEROL FUMARATE 20 MCG/2 ML NEBU INHALATION SCH (09:56)
[2021-01-29] MEDS: IPRATROPIUM-ALBUTEROL 3 ML NEB INHALATION SCH ×2 (09:56→13:36)
[2021-01-29] MEDS: BUDESONIDE 1 MG/2 ML NEBU INHALATION SCH (09:56)
--- NOTE | 2021-01-29 10:21 | PN ---
PROGRESS NOTE PULMONARY/CRITICAL CARE PROGRESS NOTE: DATE OF SERVICE: 01/29/2021 This is a 50-year-old female who was admitted with COPD/asthma exacerbation. She is doing much better today. She is currently on 1 L. From my perspective, the patient could be discharged home today. We leave that up to the primary. The patient will be discharged home on prednisone 50 mg a day until she sees me in the office next week. She is smoking again. We have counseled her about the importance of smoking cessation. PHYSICAL EXAMINATION: VITAL SIGNS: Current vital signs include temperature 98.7, heart rate 71, respiratory rate 20, blood pressure 121/66, mean 84, one-liter saturation 93%. GENERAL APPEARANCE: Appears in no acute distress. No respiratory distress, audible wheezing, use of accessory muscles or conversational dyspnea. HEENT: Examination is grossly unremarkable. Nasal oxygen noted. NECK: Supple. Full range of motion. No adenopathy. Neck veins are flat. CARDIOVASCULAR: Examination reveals regular rhythm and rate. S1, S2 normal. No S3, S4 or murmur. Heart rate 71. LUNGS: Lungs reveal some mild expiratory wheezes. There is prolongation on forced maneuver. No crackles. ABDOMEN: Soft. Bowel sounds are heard. EXTREMITIES: Intact. No cyanosis, clubbing or edema. SKIN: Without rash. NEUROLOGIC: Examination is nonfocal. No new laboratory data to report. Microbiology is negative. Chest x-ray was not abnormal. Medications are reviewed. ASSESSMENT: 1. Acute hypoxemic respiratory failure secondary to COPD/asthma exacerbation. 2. History of chronic tobacco use with recent resumption of smoking. 3. Obesity, status post gastric sleeve procedure with 100-pound weight loss. 4. History of diabetes mellitus. 5. History of gastroesophageal reflux disease. 6. History of pneumonia. 7. History of sleep apnea syndrome, not currently on CPAP. 8. Degenerative disc disease. 9. 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 PLAN: The patient could potentially be discharged home today. Will leave that up to the primary. The patient should go home on prednisone 50 mg a day. I will see her in the office next week. She should continue the rest of her medications. She is counseled about the importance of smoking cessation. Nurses will check a room-air resting saturation and a saturation while exerting to determine whether not she needs home oxygen. MMODL / IJN: [id number] /
[2021-01-29] MEDS: AZITHROMYCIN 500 MG TAB PO SCH (11:45)
[2021-01-29 13:40] VITALS: PULSE 68
--- NOTE | 2021-01-29 16:29 | P.DS ---
<Heber Paul - Last Filed: 01/29/21 14:54> Providers Expected date of discharge: 01/29/21 Hospital Course: Discharge Diagnosis: Acute COPD exacerbation Nicotine dependence Hyperlipidemia Hospital Course: Patient is a very pleasant 50-year-old female with a past medical history of COPD and tobacco dependence smoking a reported 1 pack of cigarettes daily. Patient presented to the hospital on 01/27/21 with a chief complaint of increasing shortness of breath and cough. Patient was found to be hypoxic on room air with SpO2 of 88% requiring oxygen supplementation 2 L to maintain SpO2 92-94%. Chest x-ray was positive for fibrotic changes in the left lower lobe with mild volume loss. Patient admitted under our services for COPD exacerbation with consultation to pulmonology. Patient received oxygen supplementation and treatment with DuoNeb's, formoterol, azithromycin, Solu- Medrol, Mucinex, and Robitussin-AC during hospitalization. Patient was evaluated by pulmonary and a home O2 assessment was completed. Patient found to be 91% on room air at rest and desaturated down to 84% with ambulation. Patient's condition improved and she is stable to be discharged home on home oxygen. Patient being set up with home oxygen through [facility]. She is being discharged home on 3 additional days of azithromycin for a total of 5 days of antibiotic therapy. Patient to continue prednisone 50 mg daily for 10 more days as recommended by motor vehicles inspector as well as DuoNeb treatments 4 times daily as needed for shortness of breath and/or wheezing.. Had long discussion with patient regarding the utmost importance of smoking cessation and the risks of continued use up to and including . Patient prescribed Nicorette gum and nicotine patch as she requested. Encourage patient to continue to use incentive spirometry at home throughout the day as discussed. Patient to follow up outpatient with her PCP, Dr. Acosta in 1-2 days as well as motor vehicles inspector, Dr. Olmstead as scheduled on 02/05/21. All questions answered, patient stable for discharge home at this time. Physical exam: Patient seen and fully evaluated at the bedside. Patient bronchospastic and significantly wheezy. She remains on 2 L O2 with SpO2 of 93% at time of assessment. Patient with dry nonproductive cough and reports of pain in ribs and back from excessive coughing. Patient reports continued nicotine craving despite use of patch. Additional orders placed for nicotine gum at this time. Patient also requesting something for cough and Robitussin-AC prescribed at this time. Patient to continue azithromycin, Solu-Medrol, Mucinex, and formoterol. Vital signs reviewed and stable. General: Nontoxic, no distress and appears stated age. Derm: Skin warm and dry, normal coloration for ethnicity. Head: Atraumatic, normocephalic and symmetric. Eyes: EOMs intact, no lid lag, and anicteric sclera Mouth: no lip lesions, mucus membranes moist Cardiovascular: regular rate and rhythm with normal S1S2, no murmur, positive posterior tibial pulses bilaterally, and cap refill < 2 seconds. Lungs: Respirations even, regular, and unlabored on room air. Lungs CTA adelso aterally, no rhonchi, no rales, no wheezing, and no accessory muscle usage. Abdominal: soft, nontender to palpation, no guarding, no appreciable organomegaly Ext: ROM intact. No gross muscle atrophy, no edema, no contractures Neuro: Speech clear, face symmetrical and CN II-XII grossly intact with no noted focal neuro deficits Psych: Alert and oriented to person, place, time, and situation. Appropriate and pleasant affect. A total of 45 minutes of time were spent preparing this complex discharge summary. Patient Condition at Discharge: Stable Plan - Discharge Summary Discharge Rx Participant: No New Discharge Prescriptions: New predniSONE 50 mg PO DIRECTED 10 Days #50 tab Nicotine 14Mg/24Hr Patch [Habitrol] 1 patch TRANSDERM DAILY 30 Days #30 patch Nicotine Polacrilex [Nicotine Gum] 4 mg BUCCAL DIRECTED 30 Days #3 packet Azithromycin [Zithromax Tri-John (3 tabs)] 500 mg PO DAILY 3 Days #3 tab Continue guaiFENesin [Mucinex] 600 mg PO BID PRN PRN Reason: Cold Symptoms ALPRAZolam [Xanax] 0.5 mg PO BID PRN PRN Reason: Anxiety Atorvastatin [Lipitor] 20 mg PO HS Budesonide/Glycopyr/Formoterol [Breztri Aerosphere Inhaler] 2 puff INHALATION RT-BID Ipratropium-Albuterol Nebulize [Duoneb 0.5 mg-3 mg/3 ml Soln] 3 ml INHALATION RT-QID PRN 30 Days #120 dose PRN Reason: Shortness Of Breath Discontinued Levofloxacin [Levaquin] 500 mg PO DAILY Discharge Medication List ALPRAZolam [Xanax] 0.5 mg PO BID PRN 02/16/20 [History] guaiFENesin [Mucinex] 600 mg PO BID PRN 02/16/20 [History] Atorvastatin [Lipitor] 20 mg PO HS 04/18/20 [History] Budesonide/Glycopyr/Formoterol [Breztri Aerosphere Inhaler] 2 puff INHALATION RT-BID 01/26/21 [History] Azithromycin [Zithromax Tri-John (3 tabs)] 500 mg PO DAILY 3 Days #3 tab 01/29/21 [Rx] Ipratropium-Albuterol Nebulize [Duoneb 0.5 mg-3 mg/3 ml Soln] 3 ml INHALATION RT-QID PRN 30 Days #120 dose 01/29/21 [Rx] Nicotine 14Mg/24Hr Patch [Habitrol] 1 patch TRANSDERM DAILY 30 Days #30 patch [Rx] Nicotine Polacrilex [Nicotine Gum] 4 mg BUCCAL DIRECTED 30 Days #3 packet 01/29/21 [Rx] predniSONE 50 mg PO DIRECTED 10 Days #50 tab 01/29/21 [Rx] Follow up Appointment(s)/Referral(s): [facility] [NON-STAFF] - As Needed (Supplier of home oxygen, contact regarding possible service call for equipment to be evaluated.) Barrie Olmstead DO [Doctor of Osteopathic Medicine] - 02/05/21 4:00 pm Julio Acosta MD [Primary Care Provider] - 1-2 days Patient Instructions/Handouts: How to Stop Smoking (DC), Cigarette Smoking and Your Health (GEN), COPD (Chronic Obstructive Pulmonary Disease) (DC) Activity/Diet/Wound Care/Special Instructions: Activity: As tolerated, take breaks as needed Diet: Heart healthy diet Special Instructions: Continue home Nebulizer treatments 4 times daily as needed for shortness of breath and/or wheezing. last received an updraft at 1:30 Most importantly, it is very important for you to quit smoking as we have discussed the risks of continued use of tobacco products up to and including . In addition to stopping smoking you should refrain from being in enclosed spaces with other smokers as this may also trigger an episode of respiratory distress. Home 02 with ambulation and as needed. Home oxygen set up through [facility]. Follow up as directed, call the office sooner with return or worsening of the symptoms that brought you here or with any further concerns. or return to the ER if you develop respiratory distress or oxygen and breathing treatments not helping with shortness of breath. Continue to use your incentive spirometery at home as we discussed Continue to with good hand washing Thank you for allowing us to participate in your care, it was a pleasure having you for our patient!! Discharge Disposition: HOME SELF-CARE <Mikaela Villatoro - Last Filed: 01/29/21 17:18> Providers Date of admission: 01/26/21 20:48 Attending physician: Lesley Motley MD Consults: 01/26/21 20:48 Consult Physician Routine Consulting Provider: Barrie Olmstead Consult Reason/Comments: copd Do you want consulting provider notified?: Yes Primary care physician: Julio Acosta MD Hospital Course: Heber Paul NP rendered care for this patient independently, reviewed the findings and plan as documented in the note above. I did not physically speak with or examine the patient on this date. Correction patient will have prednisone on discharge not solumedrol.
== END 2021-01-29 15:00 | disposition home or self-care (01) ==
LOC: EC 18:21 → INTOOBSV 20:48 → 4SSUR 20:48 → 6PED 01-27 09:35 → UNDODISIN 01-29 15:00
PROVIDERS: ADMIT Internal Medicine; ATTEND Internal Medicine
DX: J44.1 Chronic obstructive pulmonary disease with (acute) exacerbation (principal); J96.01 Acute respiratory failure with hypoxia; J45.901 Unspecified asthma with (acute) exacerbation; Q25.5 Atresia of pulmonary artery; Q33.6 Congenital hypoplasia and dysplasia of lung; F17.210 Nicotine dependence, cigarettes, uncomplicated; E78.5 Hyperlipidemia, unspecified; K21.9 Gastro-esophageal reflux disease without esophagitis; G47.33 Obstructive sleep apnea (adult) (pediatric); H40.9 Unspecified glaucoma; M50.30 Other cervical disc degeneration, unspecified cervical region; F32.9 Major depressive disorder, single episode, unspecified; F41.9 Anxiety disorder, unspecified; Z20.822 Contact with and (suspected) exposure to COVID-19; Z71.6 Tobacco abuse counseling; Z79.51 Long term (current) use of inhaled steroids; Z79.899 Other long term (current) drug therapy; Z88.0 Allergy status to penicillin; Z91.041 Radiographic dye allergy status; Z91.013 Allergy to seafood; Z91.048 Other nonmedicinal substance allergy status; Z98.84 Bariatric surgery status; Z87.01 Personal history of pneumonia (recurrent); Z86.39 Personal history of other endocrine, nutritional and metabolic disease; Z80.3 Family history of malignant neoplasm of breast; Z82.5 Family history of asthma and other chronic lower respiratory diseases; Z82.49 Family history of ischemic heart disease and other diseases of the circulatory system
CPT/HCPCS: 96372 ×3; 96376 ×3; 96374; 99284; 36415; 94640 ×8; 94760 ×3; 80053; 83605; 85025; 87635; 71046; G0378 ×5; S4990 ×2; J2930 ×4; J1644 ×3; 99285

== ENCOUNTER 2021-02-15 14:53 | Inpatient (IN) | payer OTHER ==
--- NOTE | 2021-02-15 15:21 | ED ---
GI Bleed HPI - General Chief complaint: GI Bleed Stated complaint: vaginal bleeding Time Seen by Provider: 02/15/21 15:20 Source: patient Mode of arrival: ambulatory Limitations: no limitations - History of Present Illness Initial comments: Alfonzo is a 51-year-old female with a history of bariatric surgery performed at [facility] in 2017. Patient presents to ER today for evaluation of lower abdominal pain that began during the night with associated bright red blood per rectum today. Patient reports she's never had a colonoscopy. No history of diverticulitis or inflammatory bowel disease. No recent fevers chills nausea or vomiting. - Related Data Home Medications Medication Instructions Recorded Confirmed ALPRAZolam [Xanax] 0.5 mg PO BID PRN 02/16/20 01/26/21 guaiFENesin [Mucinex] 600 mg PO BID PRN 02/16/20 01/26/21 Atorvastatin [Lipitor] 20 mg PO HS 04/18/20 01/26/21 Budesonide/Glycopyr/Formoterol 2 puff INHALATION RT-BID 01/26/21 01/26/21 [Breztri Aerosphere Inhaler] Previous Rx's Medication Instructions Recorded Azithromycin [Zithromax Tri-John (3 500 mg PO DAILY 3 Days #3 tab 01/29/21 tabs)] Ipratropium-Albuterol Nebulize 3 ml INHALATION RT-QID PRN 30 Days 01/29/21 [Duoneb 0.5 mg-3 mg/3 ml Soln] #120 dose Nicotine 14Mg/24Hr Patch [Habitrol] 1 patch TRANSDERM DAILY 30 Days 01/29/21 #30 patch Nicotine Polacrilex [Nicotine Gum] 4 mg BUCCAL DIRECTED 30 Days #3 01/29/21 packet predniSONE 50 mg PO DIRECTED 10 Days #50 01/29/21 tab Allergies Allergy/AdvReac Type Severity Reaction Status Date / Time Penicillins Allergy Rash/Hives Verified 02/15/21 15:00 pollen extracts Allergy Dyspnea Verified 02/15/21 15:00 shellfish derived [Shellfish] Allergy Anaphylaxis Verified 02/15/21 15:00 Iodinated Contrast Media AdvReac Rash/Hives Verified 02/15/21 15:00 Review of Systems ROS Statement: Those systems with pertinent positive or pertinent negative responses have been documented in the HPI. ROS Other: All systems not noted in ROS Statement are negative. Past Medical History Past Medical History: Asthma, COPD, Diabetes Mellitus, Eye Disorder, GERD/Reflux, Pneumonia, Sleep Apnea/CPAP/BIPAP Additional Past Medical History / Comment(s): NIDDM type II(diet controlled following wt. loss), glaucoma bilaterally, tachycardia, AKIRA with CPAP not used the machine since she lost 80 lbs post gastric sleeve, bronchitis, has O2 at home which she uses prn. 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 History of Any Multi-Drug Resistant Organisms: None Reported Past Surgical History: Bariatric Surgery, Section, Tubal Ligation Additional Past Surgical History / Comment(s): cyst removal under right breast, x 2. gastric sleeve Sx 2017. Past Anesthesia/Blood Transfusion Reactions: No Reported Reaction Past Psychological History: Anxiety, Depression Smoking Status: Current every day smoker Past Alcohol Use History: None Reported Past Drug Use History: None Reported - Past Family History Mother History Unknown: Yes Family Medical History: Cancer, COPD Additional Family Medical History / Comment(s): Breast cancer. She also has a paternal aunt with breast cancer. Father History Unknown: Yes Family Medical History: COPD, Myocardial Infarction ([place]), Vascular Disorder Additional Family Medical History / Comment(s): Father at age 64yrs. General Exam - General Exam Comments Initial Comments: Physical Exam GENERAL: Patient is well-developed and well-nourished. Patient is nontoxic and well- hydrated and is in no distress. HENT: Normocephalic, Atraumatic. EYES: PERRL, EOMI PULMONARY: Unlabored respirations. No audible rales rhonchi or wheezing was noted. CARDIOVASCULAR: There is a regular rate and rhythm without any murmurs gallops or rubs. ABDOMEN: Tenderness in left lower quadrant and suprapubic region SKIN: Skin is clear with no lesions or rashes and otherwise unremarkable. : Deferred NEUROLOGIC: Patient is alert and oriented x3. Moving all extremities spontaneously MUSCULOSKELETAL: Normal extremities with adequate strength and full range of motion. No lower extremity swelling or edema. No calf tenderness. PSYCHIATRIC: Normal psychiatric evaluation. Limitations: no limitations Course Vital Signs 02/15/21 02/15/21 14:58 17:42 Temperature 98.4 F Pulse Rate 85 74 Respiratory 20 16 Rate Blood Pressure 131/73 117/79 O2 Sat by Pulse 97 97 Oximetry Medical Decision Making - Medical Decision Making The patient was seen and evaluated, history is obtained from the patient, patient does report a ALLERGY to IV contrast therefore premedications were ordered labs and CT imaging was obtained, patient has profound leukocytosis, hemoglobin is 16 there is no anemia. Computed tomography scan confirms a col itis without signs of diverticulitis. No signs of perforation or abscess. This colitis is not related to the gastric surgery she has had in the past. At this time I recommend admission to the hospital for IV antibiotics, fluid hydration and observation. Patient is agreeable. Patient care was discussed with Dr. Villatoro of [facility] who accepts the admission. - Lab Data Result diagrams: 02/15/21 15:49 02/15/21 15:49 Lab Results 02/15/21 02/15/21 02/15/21 Range/Units 15:49 15:49 15:49 WBC 24.1 H (3.8-10.6) k/uL RBC 5.45 H (3.80-5.40) m/uL Hgb 16.7 H (11.4-16.0) gm/dL Hct 51.9 H (34.0-46.0) % MCV 95.1 (80.0-100.0) fL MCH 30.7 (25.0-35.0) pg MCHC 32.3 (31.0-37.0) g/dL RDW 12.6 (11.5-15.5) % Plt Count 294 (150-450) k/uL MPV 7.4 Neutrophils % 86 % Lymphocytes % 6 % Monocytes % 7 % Eosinophils % 0 % Basophils % 0 % Neutrophils # 20.6 H (1.3-7.7) k/uL Lymphocytes # 1.4 (1.0-4.8) k/uL Monocytes # 1.6 H (0-1.0) k/uL Eosinophils # 0.0 (0-0.7) k/uL Basophils # 0.1 (0-0.2) k/uL Sodium 136 L (137-145) mmol/L Potassium 4.2 (3.5-5.1) mmol/L Chloride 103 (98-107) mmol/L Carbon Dioxide 25 (22-30) mmol/L Anion Gap 8 mmol/L BUN 17 (7-17) mg/dL Creatinine 0.48 L (0.52-1.04) mg/dL Est GFR (CKD-EPI)AfAm >90 (>60 ml/min/1.73 sqM) Est GFR (CKD-EPI)NonAf >90 (>60 ml/min/1.73 sqM) Glucose 87 (74-99) mg/dL Plasma Lactic Acid Sesar 1.5 (0.7-2.0) mmol/L Calcium 9.5 (8.4-10.2) mg/dL Total Bilirubin 1.7 H (0.2-1.3) mg/dL AST 20 (14-36) U/L ALT 26 (4-34) U/L Alkaline Phosphatase 143 H (38-126) U/L Total Protein 6.4 (6.3-8.2) g/dL Albumin 3.9 (3.5-5.0) g/dL Amylase 123 H (30-110) U/L Lipase 107 (23-300) U/L Disposition Clinical Impression: Colitis, BRBPR (bright red blood per rectum), Leukocytosis Disposition: ADMITTED IP TO THIS HOSP Condition: Serious Is patient prescribed a controlled substance at d/c from ED?: No Referrals: Julio Acosta MD [Primary Care Provider] - 1-2 days
[2021-02-15] MEDS ORDERED: SODIUM CHLORIDE 0.9% 500 ML 500 ML IV STA (15:36)
[2021-02-15] MEDS ORDERED: BARIUM SULFATE 450 ML ORAL.SUSP BOTTLE PO PRN (15:36)
[2021-02-15] MEDS ORDERED: MORPHINE SULFATE 4 MG/ML SYRINGE IV STA (15:36)
[2021-02-15] MEDS ORDERED: methylPREDNISolone SOD SUCCI 125 MG/2 ML VIAL IV STA (15:37)
[2021-02-15] MEDS ORDERED: FAMOTIDINE 20 MG/2 ML VIAL IV STA (15:37)
[2021-02-15] MEDS ORDERED: diphenhydrAMINE 50 MG/ML 1 ML VIAL IVP STA (15:37)
[2021-02-15 16:19] LABS: Basophils # (A) 0.1 k/uL (0-0.2); Basophils % (A) 0 %; Eosinophils % (A) 0 %; HCT 51.9 % (34.0-46.0); HGB 16.7 gm/dL (11.4-16.0); Lymphocytes # (A) 1.4 k/uL (1.0-4.8); Lymphocytes % (A) 6 %; MCH 30.7 pg (25.0-35.0); MCHC 32.3 g/dL (31.0-37.0); MCV 95.1 fL (80.0-100.0); Mean Platelet Volume 7.4; Monocytes # (A) 1.6 k/uL (0-1.0); Monocytes % (A) 7 %; Neutrophils # (A) 20.6 k/uL (1.3-7.7); Neutrophils % (A) 86 %; Platelet Count 294 k/uL (150-450); RBC 5.45 m/uL (3.80-5.40); RDW 12.6 % (11.5-15.5); WBC 24.1 k/uL (3.8-10.6)
[2021-02-15 16:28] LABS: ALT 26 U/L (4-34); AST 20 U/L (14-36); African American GFR (CKD) >90 (>60 ml/min/1.73 sqM); Albumin 3.9 g/dL (3.5-5.0); Alkaline Phosphatase 143 U/L (38-126); Amylase 123 U/L (30-110); Anion Gap 8 mmol/L; Blood Urea Nitrogen 17 mg/dL (7-17); Calcium 9.5 mg/dL (8.4-10.2); Carbon Dioxide 25 mmol/L (22-30); Chloride 103 mmol/L (98-107); Glucose 87 mg/dL (74-99); Lipase 107 U/L (23-300); Non-African American GFR(CKD) >90 (>60 ml/min/1.73 sqM); Potassium 4.2 mmol/L (3.5-5.1); Sodium 136 mmol/L (137-145); Total Bilirubin 1.7 mg/dL (0.2-1.3); Total Protein 6.4 g/dL (6.3-8.2)
--- NOTE | 2021-02-15 17:07 | CT ---
EXAMINATION TYPE: CT abdomen pelvis w con DATE OF EXAM: 02/15/2021 COMPARISON: 02/15/2016 HISTORY: Generalized pain. CT DLP: 674.9 mGycm Automated exposure control for dose reduction was used. CONTRAST: Performed with IV Contrast, patient injected with 100 mL of Isovue 300. Images from the diaphragm to the floor the pelvis with IV contrast. There is mild subsegmental atelectasis at the left lung base. There is no pleural effusion. Heart siz e is normal. Heart deviated slightly to the left side. There is previous gastric surgery. Liver is intact. Gallbladder is intact. The bile ducts are not dil ated. Spleen is intact. There is no pancreatic mass. There is no adrenal mass. Kidneys show satisfactory contrast opacification. There is no hydronephrosi s. There is no retroperitoneal adenopathy. Bladder distends smoothly. Uterus is anteverted. There is no inguinal hernia. There is no free fluid in the pelvis. There are multiple prominent vessels in the pelvis on the left side consistent with some varicose vei ns. There is diffuse wall thickening and surrounding mild edema involving the descending colon and the pr oximal sigmoid colon. There is no free air. There is no ascites. There is no bowel obstruction. The lumbar vertebra have normal alignment. Posterior elements are intact. There is no compression fra cture. Hip joints are intact. There is no hip dysplasia. IMPRESSION: There is inflammatory changes and surrounding edema involving the left colon As above and consistent with a nonspecific colitis. This appears new compared to old exam. There is mild subsegmental atelectasis left lower lobe unchanged. Left side pelvic varices appear to be new compared to old exam.
[2021-02-15] MEDS ORDERED: NALOXONE 0.4 MG/ML 1 ML VIAL IV PRN ×2 (17:49→18:53)
[2021-02-15] MEDS ORDERED: metroNIDAZOLE-NS PMX 500 MG in SALINE 1 100ML.BAG IVPB STA (17:51)
[2021-02-15] MEDS ORDERED: cefTRIAXone IN SWFI 1,000 MG/10 ML SYRINGE IVP STA (17:51)
[2021-02-15 18:11] LABS: Appearance,Urine Clear (Clear); Bilirubin,Urine Negative (Negative); Blood,Urine Negative (Negative); Color,Urine Light Yellow; Glucose,Urine (UA) Negative (Negative); Ketones,Urine Negative (Negative); Leukocyte Esterase,Urine Negative (Negative); Nitrite,Urine Negative (Negative); PH, Urine 5.5 (5.0-8.0); Protein,Urine Negative (Negative); Specific Gravity,Urine 1.034 (1.001-1.035); Urobilinogen,Urine <2.0 mg/dL (<2.0)
[2021-02-15] MEDS: SODIUM CHLORIDE 0.9% 1,000 ML IV SCH (18:31)
[2021-02-15] MEDS ORDERED: HYDROcodone/APAP 5-325MG 1 EACH TAB PO PRN (18:53)
[2021-02-15] MEDS ORDERED: ACETAMINOPHEN TAB 325 MG TAB PO PRN (18:53)
[2021-02-15] MEDS ORDERED: MELATONIN 3 MG TABLET PO PRN (18:53)
[2021-02-15] MEDS ORDERED: ALBUTEROL HFA INHALER INHALATION PRN (18:57)
[2021-02-15] MEDS ORDERED: CYCLOBENZAPRINE 5 MG TAB PO PRN (18:57)
--- NOTE | 2021-02-15 19:00 | P.HPIM ---
History of Present Illness H&P Date: 02/15/21 Chief Complaint: abdominal pain Patient is a 51 yo CF with a hx of asthma/COPD, DM 2, gastric bypass, and GERD who presented to the emergency department with complaints of abdominal pain and rectal bleeding. Initial evaluation showed vital signs within normal limits, labatory analysis shows WBC 25.[address] abd and pelvis deomnstrated left sided colitis with left sided varicies. She was started on flagyl and rocephin as well as IV fluids. Patinet seen and examined at bedside. Abdominal pain LLQ is the worse and radiates to the rest of the abdomen. It started early this morning. + Nausea today, no vomiting, + dizziness, + Chills no fevers, No sick contacts. No unusual food. Intially thought it was due to consitpation, had a bowel movement and pain was better but did not go away. THen developed diarrhea and then therer was blood developing which increased in natrure. No well water. + hx of constipation nothing like this. Was recently on Abx for C OPD zithromax taken in the last 30 days. Stopped smoking 3 weeks ago. Has not had a screening colonoscopy Pertinent positives and negatives as discussed in HPI, a complete review of systems was performed and all other systems are negative. General: non toxic, no distress, appears at stated age Derm: warm, dry Head: atraumatic, normocephalic, symmetric Eyes: EOMI, no lid lag, anicteric sclera, pupils equal round reactive to light ENT: Nose and ears atraumatic, no thrush, no pharyngeal erythema Neck: No thyromegaly, no cervical lymphadenopathy, trachea midline, supple Mouth: no lip lesion, mucus membranes moist Cardiovascular: S1S2 reg, no murmur, positive posterior tibial pulse bilateral, no edema, capillary refill less than 2 seconds Lungs: clear to ascultation bilateral, no ronchi, no rales, no wheeze, no accessory muscle use Abdominal: soft, nontender to palpation, no guarding, no appreciable organomegaly, normal bowel sounds Ext: no gross muscle atrophy, muscle strength muscle strength 5 out of 5 in all 4 extremities, no contractures Neuro: CN II-XI grossly intact, light touch intact all 4 extremities, finger to nose within normal limits, Psych: Alert, oriented, appropriate affect Colitis left sided. - Rocephin and flagyl - clear liquid - IV fluids - pain control COPD without exacerbation -Complete prednisone taper -DuoNeb's -Cough suppressant Diabetes mellitus type 2 -Not on chronic oral medications -Sliding-scale insulin -A1c Chronic: GERD AKIRA-not on CPAP The patient is placed in observation with an anticipated less than 2 midnight stay for evaluation of colitis. Surrogate decision-maker: DVT prophylaxis: SCDs Discussed with: Patient, ED physician Anticipated discharge date: in 2-[address]: Home A total of 35 minutes was spent on the care of this complex patient more than 50% of the time was spent in counseling and care coordination. Past Medical History Past Medical History: Asthma, COPD, Diabetes Mellitus, Eye Disorder, GERD/Reflux, Pneumonia, Sleep Apnea/CPAP/BIPAP Additional Past Medical History / Comment(s): NIDDM type II(diet controlled following wt. loss), glaucoma bilaterally, tachycardia, AKIRA with CPAP not used the machine since she lost 80 lbs post gastric sleeve, bronchitis, has O2 at home which she uses prn. 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 History of Any Multi-Drug Resistant Organisms: None Reported Past Surgical History: Bariatric Surgery, Section, Tubal Ligation Additional Past Surgical History / Comment(s): cyst removal under right breast, x 2. gastric sleeve Sx 2017. Past Anesthesia/Blood Transfusion Reactions: No Reported Reaction Past Psychological History: Anxiety, Depression Smoking Status: Former smoker (quit Dec 2020) Past Alcohol Use History: None Reported Past Drug Use History: None Reported - Past Family History Mother History Unknown: Yes Family Medical History: Cancer, COPD Additional Family Medical History / Comment(s): Breast cancer. She also has a paternal aunt with breast cancer. Father History Unknown: Yes Family Medical History: COPD, Myocardial Infarction ([place]), Vascular Disorder Additional Family Medical History / Comment(s): Father at age 64yrs. Medications and Allergies Home Medications Medication Instructions Recorded Confirmed Type ALPRAZolam [Xanax] 0.5 mg PO DAILY PRN 02/16/20 02/15/21 History Atorvastatin [Lipitor] 20 mg PO HS 04/18/20 02/15/21 History Budesonide/Glycopyr/Formoterol 2 puff INHALATION RT-BID 01/26/21 02/15/21 History [Breztri Aerosphere Inhaler] Albuterol Sulfate [Ventolin HFA] 2 puff INHALATION RT-Q6H PRN 02/15/21 02/15/21 History Cyclobenzaprine [Flexeril] 5 mg PO HS PRN 02/15/21 02/15/21 History Ipratropium-Albuterol Nebulize 3 ml INHALATION RT-Q4H 02/15/21 02/15/21 History [Duoneb 0.5 mg-3 mg/3 ml Soln] Nicotine 21Mg/24Hr Patch [Habitrol] 1 patch TRANSDERM DAILY 02/15/21 02/15/21 History Nystatin 100,000 Unit/ml Susp 5 ml PO BID 02/15/21 02/15/21 History [Mycostatin Oral Susp] Promethazine HCl/Codeine 5 ml PO HS 02/15/21 02/15/21 History [Promethazine-Codeine Syrup] predniSONE See Taper PO DIRECTED 02/15/21 02/15/21 History Allergies Allergy/AdvReac Type Severity Reaction Status Date / Time Penicillins Allergy Rash/Hives Verified 02/15/21 18:15 pollen extracts Allergy Dyspnea Verified 02/15/21 18:15 shellfish derived [Shellfish] Allergy Anaphylaxis Verified 02/15/21 18:15 Iodinated Contrast Media AdvReac Rash/Hives Verified 02/15/21 18:15 Physical Exam Osteopathic Statement: *. No significant issues noted on an osteopathic structural exam other than those noted in the History and Physical/Consult. Vitals: Vital Signs Temp Pulse Resp BP Pulse Ox 02/15/21 17:42 74 16 117/79 97 02/15/21 14:58 98.4 F 85 20 131/73 97 Intake and Output 02/15/21 02/15/21 02/15/21 06:59 14:59 22:59 Other: Weight 56.699 kg Results CBC & Chem 7: 02/15/21 15:49 02/15/21 15:49 Labs: Abnormal Lab Results - Last 24 Hours (Table) 02/15/21 02/15/21 Range/Units 15:49 15:49 WBC 24.1 H (3.8-10.6) k/uL RBC 5.45 H (3.80-5.40) m/uL Hgb 16.7 H (11.4-16.0) gm/dL Hct 51.9 H (34.0-46.0) % Neutrophils # 20.6 H (1.3-7.7) k/uL Monocytes # 1.6 H (0-1.0) k/uL Sodium 136 L (137-145) mmol/L Creatinine 0.48 L (0.52-1.04) mg/dL Total Bilirubin 1.7 H (0.2-1.3) mg/dL Alkaline Phosphatase 143 H (38-126) U/L Amylase 123 H (30-110) U/L
[2021-02-15 20:39] LABS: Glucose,Whole Blood 122 mg/dL (75-99)
[2021-02-15] MEDS: INSULIN ASPART (NovoLOG) 100 UNIT/ML VIAL SQ SCH (20:45)
[2021-02-15] MEDS: NON FORMULARY DRUG (Budesonide/Glycopyr/Formoterol [Breztri Aerosphere Inhaler] 10.7 GM Hf INHALATION SCH (20:46)
[2021-02-15] MEDS: ATORVASTATIN 20 MG TAB PO SCH (20:46)
[2021-02-15] MEDS: NYSTATIN 100,000 UNIT/ML SUSP 500,000 UNIT/5 ML CUP PO SCH (20:46)
[2021-02-15] MEDS: IPRATROPIUM-ALBUTEROL 3 ML NEB INHALATION SCH (20:48)
[2021-02-15] MEDS ORDERED: CODEINE PO SCH (21:00)
[2021-02-15] MEDS ORDERED: PROMETHAZINE HCL PO SCH (21:00)
[2021-02-15] MEDS: metroNIDAZOLE-NS PMX 500 MG in SALINE 1 100ML.BAG IVPB SCH (23:32)
[2021-02-16] MEDS: MORPHINE SULFATE 4 MG/ML SYRINGE IV PRN ×3 (00:03→12:50)
[2021-02-16] MEDS: IPRATROPIUM-ALBUTEROL 3 ML NEB INHALATION SCH ×6 (00:27→20:01)
[2021-02-16 07:11] LABS: Glucose,Whole Blood 127 mg/dL (75-99)
[2021-02-16 07:26] LABS: HCT 45.9 % (34.0-46.0); HGB 14.6 gm/dL (11.4-16.0); MCH 30.6 pg (25.0-35.0); MCHC 31.9 g/dL (31.0-37.0); Mean Platelet Volume 7.1; Platelet Count 241 k/uL (150-450); RBC 4.78 m/uL (3.80-5.40); RDW 12.7 % (11.5-15.5); WBC 19.3 k/uL (3.8-10.6)
[2021-02-16 07:33] LABS: ALT 21 U/L (4-34); AST 16 U/L (14-36); African American GFR (CKD) >90 (>60 ml/min/1.73 sqM); Albumin 3.1 g/dL (3.5-5.0); Albumin/Globulin Ratio 1.3; Alkaline Phosphatase 91 U/L (38-126); Anion Gap 3 mmol/L; Blood Urea Nitrogen 11 mg/dL (7-17); Calcium 9.1 mg/dL (8.4-10.2); Carbon Dioxide 29 mmol/L (22-30); Chloride 104 mmol/L (98-107); Globulin 2.4 g/dL; Glucose 132 mg/dL (74-99); Magnesium 2.2 mg/dL (1.6-2.3); Non-African American GFR(CKD) >90 (>60 ml/min/1.73 sqM); Potassium 4.5 mmol/L (3.5-5.1); Sodium 136 mmol/L (137-145); Total Bilirubin 1.5 mg/dL (0.2-1.3); Total Protein 5.5 g/dL (6.3-8.2)
[2021-02-16] MEDS: metroNIDAZOLE-NS PMX 500 MG in SALINE 1 100ML.BAG IVPB SCH ×2 (08:01→16:15)
[2021-02-16] MEDS: NICOTINE 21MG/24HR PATCH TRANSDERM SCH (08:02)
[2021-02-16] MEDS: INSULIN ASPART (NovoLOG) 100 UNIT/ML VIAL SQ SCH ×4 (08:04→21:02)
[2021-02-16] MEDS: SODIUM CHLORIDE 0.9% 1,000 ML IV SCH ×2 (08:06→09:26)
[2021-02-16] MEDS: NYSTATIN 100,000 UNIT/ML SUSP 500,000 UNIT/5 ML CUP PO SCH ×2 (09:19→21:01)
[2021-02-16] MEDS: NON FORMULARY DRUG (Budesonide/Glycopyr/Formoterol [Breztri Aerosphere Inhaler] 10.7 GM Hf INHALATION SCH ×2 (09:20→20:11)
[2021-02-16 11:50] LABS: Glucose,Whole Blood 93 mg/dL (75-99)
--- NOTE | 2021-02-16 13:55 | P.PN ---
Subjective Progress Note Date: 02/16/21 Principal diagnosis: abdominal pain Patient is a 51 yo CF with a hx of asthma/COPD, DM 2, gastric bypass, and GERD who presented to the emergency department with complaints of abdominal pain and rectal bleeding. Initial evaluation showed vital signs within normal limits, labatory analysis shows WBC 25.[address] abd and pelvis deomnstrated left sided colitis with left sided varicies. She was started on flagyl and rocephin as well as IV fluids. I'll morning after admission her white blood cell count had improved significantly and her pain was getting better. She did not have any bowel movements after admission. Patient seen and examined at bedside. Pain is slightly group, no additional bowel movements yesterday, no nausea or vomiting. She does feel slightly bloated this morning. She reports concerns about C. difficile be at her work also has a dense of diarrhea with blood. She has no formal history of C. diff in the past. General: non toxic, no distress, appears at stated age Derm: warm, dry Head: atraumatic, normocephalic, symmetric Eyes: EOMI, no lid lag, anicteric sclera Mouth: no lip lesion, mucus membranes dry Cardiovascular: S1S2 reg, no murmur, positive posterior tibial pulse bilateral, Lungs: CTA bilateral, no rhonchi, no rales , no accessory muscle use Abdominal: soft, tender to light palpation left lower quadrant, tender to deep palpation right upper and left upper quadrants, no guarding, no appreciable organomegaly Ext: no gross muscle atrophy, no edema, no contractures Neuro: CN II-XI grossly intact, no focal neuro deficits Psych: Alert, oriented, appropriate affect Colitis left sided. - Rocephin and flagyl -Advance to full liquid diet - IV fluids - pain control -Due to the location of her symptoms as well as some pelvic varices I have reiterated with the patient the importance of following up for colonoscopy 4-6 weeks after discharge. COPD without exacerbation -Complete prednisone taper -DuoNeb's -Cough suppressant Diabetes mellitus type 2 -Not on chronic oral medications -Sliding-scale insulin -A1c Chronic: GERD AKIRA-not on CPAP Patient is high risk to discharge home if she continues to have a white blood cell count of 19 and continued pain. We'll monitor for one more night and continue IV fluids. DVT prophylaxis: SCDs Discussed with: Patient, nursing Anticipated discharge date: In a.m. Anticipated discharge place: Home A total of 35 minutes was spent on the care of this complex patient more than 50% of the time was spent in counseling and care coordination. Objective - Vital Signs Vital signs: Vital Signs Temp 98.5 F 02/16/21 07:00 Pulse 61 02/16/21 13:28 Resp 16 02/16/21 13:28 BP 147/75 02/16/21 07:00 Pulse Ox 96 02/16/21 07:00 Intake & Output 02/15/21 02/16/21 02/16/21 18:59 06:59 18:59 Intake Total 400 300 Balance 400 300 Weight 56.699 kg 56.699 kg Intake: Intake, IV Titration 400 Amount Sodium Chloride 0.9% 1, 300 000 ml @ 75 mls/hr IV . [id number] [facility] Rx#:[id number] metroNIDAZOLE-NS PMX 500 100 mg In Saline 1 100ml.bag @ 100 mls/hr IVPB Q8HR [facility] Rx#:[id number] Oral 300 Other: # Voids 1 # Bowel Movements 0 - Labs CBC & Chem 7: 02/16/21 06:54 02/16/21 06:54 Labs: Abnormal Lab Results - Last 24 Hours (Table) 02/15/21 02/15/21 02/15/21 Range/Units 15:49 15:49 20:36 WBC 24.1 H (3.8-10.6) k/uL RBC 5.45 H (3.80-5.40) m/uL Hgb 16.7 H (11.4-16.0) gm/dL Hct 51.9 H (34.0-46.0) % Neutrophils # 20.6 H (1.3-7.7) k/uL Monocytes # 1.6 H (0-1.0) k/uL Sodium 136 L (137-145) mmol/L Creatinine 0.48 L (0.52-1.04) mg/dL Glucose (74-99) mg/dL POC Glucose (mg/dL) 122 H (75-99) mg/dL Total Bilirubin 1.7 H (0.2-1.3) mg/dL Alkaline Phosphatase 143 H (38-126) U/L Total Protein (6.3-8.2) g/dL Albumin (3.5-5.0) g/dL Amylase 123 H (30-110) U/L 02/16/21 02/16/21 02/16/21 Range/Units 06:54 06:54 07:10 WBC 19.3 H (3.8-10.6) k/uL RBC (3.80-5.40) m/uL Hgb (11.4-16.0) gm/dL Hct (34.0-46.0) % Neutrophils # (1.3-7.7) k/uL Monocytes # (0-1.0) k/uL Sodium 136 L (137-145) mmol/L Creatinine (0.52-1.04) mg/dL Glucose 132 H (74-99) mg/dL POC Glucose (mg/dL) 127 H (75-99) mg/dL Total Bilirubin 1.5 H (0.2-1.3) mg/dL Alkaline Phosphatase (38-126) U/L Total Protein 5.5 L (6.3-8.2) g/dL Albumin 3.1 L (3.5-5.0) g/dL Amylase (30-110) U/L
[2021-02-16 14:25] LABS: Hemoglobin A1C 6.1 % (4.0-6.0)
[2021-02-16 17:25] LABS: Glucose,Whole Blood 96 mg/dL (75-99)
[2021-02-16 20:41] LABS: Glucose,Whole Blood 86 mg/dL (75-99)
[2021-02-16] MEDS: predniSONE 10 MG TAB PO SCH (21:01)
[2021-02-16] MEDS: ATORVASTATIN 20 MG TAB PO SCH (21:01)
[2021-02-16] MEDS: ALPRAZolam 0.5 MG TAB PO PRN (22:52)
[2021-02-17] MEDS: metroNIDAZOLE-NS PMX 500 MG in SALINE 1 100ML.BAG IVPB SCH ×3 (00:07→16:20)
[2021-02-17] MEDS: SODIUM CHLORIDE 0.9% 1,000 ML IV SCH ×3 (00:08→16:20)
[2021-02-17] MEDS: IPRATROPIUM-ALBUTEROL 3 ML NEB INHALATION SCH ×6 (01:26→20:58)
[2021-02-17 06:49] LABS: HCT 39.9 % (34.0-46.0); HGB 13.5 gm/dL (11.4-16.0); MCH 31.9 pg (25.0-35.0); MCHC 33.7 g/dL (31.0-37.0); MCV 94.5 fL (80.0-100.0); Platelet Count 212 k/uL (150-450); RBC 4.22 m/uL (3.80-5.40); RDW 12.7 % (11.5-15.5); WBC 17.3 k/uL (3.8-10.6)
[2021-02-17 07:10] LABS: African American GFR (CKD) >90 (>60 ml/min/1.73 sqM); Anion Gap 4 mmol/L; Blood Urea Nitrogen 10 mg/dL (7-17); Calcium 8.4 mg/dL (8.4-10.2); Carbon Dioxide 26 mmol/L (22-30); Chloride 107 mmol/L (98-107); Glucose 120 mg/dL (74-99); Non-African American GFR(CKD) >90 (>60 ml/min/1.73 sqM); Potassium 4.1 mmol/L (3.5-5.1); Sodium 137 mmol/L (137-145)
[2021-02-17 07:30] LABS: Glucose,Whole Blood 107 mg/dL (75-99)
[2021-02-17 07:43] VITALS: RESP 16
[2021-02-17] MEDS: INSULIN ASPART (NovoLOG) 100 UNIT/ML VIAL SQ SCH ×4 (07:49→20:21)
[2021-02-17] MEDS: NICOTINE 21MG/24HR PATCH TRANSDERM SCH (07:52)
[2021-02-17] MEDS: NYSTATIN 100,000 UNIT/ML SUSP 500,000 UNIT/5 ML CUP PO SCH ×2 (07:53→20:21)
[2021-02-17] MEDS: predniSONE 10 MG TAB PO SCH (07:53)
[2021-02-17] MEDS: NON FORMULARY DRUG (Budesonide/Glycopyr/Formoterol [Breztri Aerosphere Inhaler] 10.7 GM Hf INHALATION SCH ×2 (08:42→20:58)
[2021-02-17] MEDS ORDERED: ONDANSETRON 4 MG TAB PO PRN (09:46)
[2021-02-17 12:07] LABS: Glucose,Whole Blood 125 mg/dL (75-99)
[2021-02-17] MEDS: PANTOPRAZOLE 40 MG TABLET PO SCH (13:03)
--- NOTE | 2021-02-17 13:16 | P.PN ---
Subjective Progress Note Date: 02/17/21 Patient is a 51 yo CF with a hx of asthma/COPD, DM 2, gastric bypass, and GERD who presented to the emergency department with complaints of abdominal pain and rectal bleeding. Initial evaluation showed vital signs within normal limits, labatory analysis shows WBC 25.[address] abd and pelvis deomnstrated left sided colitis with left sided varicies. She was started on flagyl and rocephin as well as IV fluids. I'll morning after admission her white blood cell count had improved significantly and her pain was getting better. She did have some rust color liquid bowel movements after admission. Her white blood cell count decreased significantly. Patient seen and examined at bedside, she continues to have some liquid bowel movements no gregor blood but do appear light brownish to rest and colored. She states that her pain is significantly improved from admission however now she is having nausea and has an unable to tolerate a significant amount of her full liquid diet. She states the nausea is new. General: non toxic, no distress, appears at stated age Derm: warm, dry Head: atraumatic, normocephalic, symmetric Eyes: EOMI, no lid lag, anicteric sclera Mouth: no lip lesion, mucus membranes dry Cardiovascular: S1S2 reg, no murmur, positive posterior tibial pulse bilateral, Lungs: CTA bilateral, no rhonchi, no rales , no accessory muscle use Abdominal: soft, tentative palpation left lower quadrant, no guarding, no appreciable organomegaly Ext: no gross muscle atrophy, no edema, no contractures Neuro: CN II-XI grossly intact, no focal neuro deficits Psych: Alert, oriented, appropriate affect Acute colitis left sided with pelvic varices COPD without exacerbation Diabetes mellitus type 2 GERD Obstructive sleep apnea -Continue with Flagyl and Rocephin, add oral Zofran, continue with full liquid diet. If she tolerates lunch better plan to discharge home, if not we'll consult surgery. Have discussed with patient the importance of colonoscopy at discharge. She had been complaining of prednisone taper at home this was reordered. We'll add and Protonix for GI prophylaxis. Objective - Vital Signs Vital signs: Vital Signs Temp 97.7 F 02/17/21 07:00 Pulse 76 02/17/21 08:55 Resp 16 02/17/21 07:00 BP 131/81 02/17/21 07:00 Pulse Ox 89 L 02/17/21 07:00 Intake & Output 02/16/21 02/17/21 02/17/21 18:59 06:59 18:59 Intake Total 1500 1000 240 Output Total 1 Balance 1499 1000 240 Intake: Intake, IV Titration 1000 Amount Sodium Chloride 0.9% 1, 900 000 ml @ 75 mls/hr IV . [id number] [facility] Rx#:[id number] metroNIDAZOLE-NS PMX 500 100 mg In Saline 1 100ml.bag @ 100 mls/hr IVPB Q8HR [facility] Rx#:[id number] Oral 300 240 Other 1200 Output: Stool 1 Other: # Voids 6 1 - Labs CBC & Chem 7: 02/17/21 05:57 02/17/21 05:57 Labs: Abnormal Lab Results - Last 24 Hours (Table) 02/16/21 02/17/21 02/17/21 Range/Units 06:54 05:57 05:57 WBC 17.3 H (3.8-10.6) k/uL Creatinine 0.44 L (0.52-1.04) mg/dL Glucose 120 H (74-99) mg/dL POC Glucose (mg/dL) (75-99) mg/dL Hemoglobin A1c 6.1 H (4.0-6.0) % 02/17/21 02/17/21 Range/Units 07:28 12:06 WBC (3.8-10.6) k/uL Creatinine (0.52-1.04) mg/dL Glucose (74-99) mg/dL POC Glucose (mg/dL) 107 H 125 H (75-99) mg/dL Hemoglobin A1c (4.0-6.0) %
[2021-02-17 17:22] LABS: Glucose,Whole Blood 108 mg/dL (75-99)
[2021-02-17 20:21] LABS: Glucose,Whole Blood 111 mg/dL (75-99)
[2021-02-17] MEDS: ATORVASTATIN 20 MG TAB PO SCH (20:21)
[2021-02-17] MEDS: ALPRAZolam 0.5 MG TAB PO PRN (22:10)
[2021-02-18] MEDS: metroNIDAZOLE-NS PMX 500 MG in SALINE 1 100ML.BAG IVPB SCH ×2 (00:03→09:14)
[2021-02-18] MEDS: IPRATROPIUM-ALBUTEROL 3 ML NEB INHALATION SCH ×4 (00:12→11:05)
[2021-02-18 07:29] LABS: Glucose,Whole Blood 99 mg/dL (75-99)
[2021-02-18] MEDS: NON FORMULARY DRUG (Budesonide/Glycopyr/Formoterol [Breztri Aerosphere Inhaler] 10.7 GM Hf INHALATION SCH (07:57)
[2021-02-18] MEDS: INSULIN ASPART (NovoLOG) 100 UNIT/ML VIAL SQ SCH ×2 (08:02→12:22)
[2021-02-18 08:13] VITALS: BP 133/71; TEMP 98.1
[2021-02-18 09:09] LABS: HCT 37.4 % (37.2-46.3); HGB 11.8 g/dL (12.0-15.0); MCH 30.2 pg (27.0-32.0); MCHC 31.6 g/dL (32.0-37.0); MCV 95.7 fL (80.0-97.0); Mean Platelet Volume 9.5 fL (9.5-12.2); Platelet Count 206 X 10*3/uL (140-440); RBC 3.91 X 10*6/uL (4.10-5.20); RDW 13.2 % (11.5-14.5); WBC 13.31 X 10*3/uL (4.50-10.00)
[2021-02-18] MEDS: PANTOPRAZOLE 40 MG TABLET PO SCH (09:14)
[2021-02-18] MEDS: NICOTINE 21MG/24HR PATCH TRANSDERM SCH (09:14)
[2021-02-18] MEDS: SODIUM CHLORIDE 0.9% 1,000 ML IV SCH (09:14)
[2021-02-18] MEDS: NYSTATIN 100,000 UNIT/ML SUSP 500,000 UNIT/5 ML CUP PO SCH (09:16)
[2021-02-18] MEDS: predniSONE 10 MG TAB PO SCH (09:16)
[2021-02-18 10:47] LABS: Anion Gap 10.5 mmol/L (4.00-12.00); Calcium 8.2 mg/dL (8.7-10.3); Carbon Dioxide 26.5 mmol/L (21.6-31.8); Non-African American GFR(CKD) 111.3 (60.0-200.0); Potassium 3.4 mmol/L (3.5-5.5)
[2021-02-18 11:24] VITALS: PULSE 66
[2021-02-18 12:04] LABS: Glucose,Whole Blood 100 mg/dL (75-99)
--- NOTE | 2021-02-18 12:23 | P.DS ---
Providers Date of admission: 02/17/21 15:41 Expected date of discharge: 02/18/21 Attending physician: Mikaela Villatoro DO Consults: 02/17/21 15:40 Consult Physician Routine Consulting Provider: Macho Rich Reason/Comments: COlitis Do you want consulting provider notified?: Yes Primary care physician: Julio Acosta MD Hospital Course: Patient is a 51 yo F with a hx of asthma/COPD, DM 2, gastric bypass, and GERD who presented to the emergency department with complaints of abdominal pain and rectal bleeding.. CT abd and pelvis deomnstrated left sided colitis with left sided varicies. She was started on flagyl and rocephin as well as IV fluids. Patient was treated with supportive care and her overall condition improved significantly. Seen and evaluated by me on the day of discharge. She was able to tolerate diet with no difficulty. Her stool is more formed with no evidence of blood. Abdomen is soft and nontender. She'll be discharged home in a stable condition. She will finish antibiotic course with Cipro and Flagyl for another week. He will follow-up in the office as directed for colonoscopy in 4-6 weeks. For further details about this hospitalization please refer to the electronic chart. Patient Condition at Discharge: Fair Plan - Discharge Summary Discharge Rx Participant: No New Discharge Prescriptions: New Ciprofloxacin HCl [Cipro] 500 mg PO Q12H 7 Days #14 tab metroNIDAZOLE [Flagyl] 500 mg PO Q8HR #21 tab Continue ALPRAZolam [Xanax] 0.5 mg PO DAILY PRN PRN Reason: Anxiety Atorvastatin [Lipitor] 20 mg PO HS Budesonide/Glycopyr/Formoterol [Breztri Aerosphere Inhaler] 2 puff INHALATION RT-BID Promethazine HCl/Codeine [Promethazine-Codeine Syrup] 5 ml PO HS Nicotine 21Mg/24Hr Patch [Habitrol] 1 patch TRANSDERM DAILY Cyclobenzaprine [Flexeril] 5 mg PO HS PRN PRN Reason: Pain predniSONE See Taper PO DIRECTED Nystatin 100,000 Unit/ml Susp [Mycostatin Oral Susp] 5 ml PO BID Albuterol Sulfate [Ventolin HFA] 2 puff INHALATION RT-Q6H PRN PRN Reason: Shortness Of Breath Ipratropium-Albuterol Nebulize [Duoneb 0.5 mg-3 mg/3 ml Soln] 3 ml INHALATION RT-Q4H Discharge Medication List ALPRAZolam [Xanax] 0.5 mg PO DAILY PRN 02/16/20 [History] Atorvastatin [Lipitor] 20 mg PO HS 04/18/20 [History] Budesonide/Glycopyr/Formoterol [Breztri Aerosphere Inhaler] 2 puff INHALATION RT-BID 01/26/21 [History] Albuterol Sulfate [Ventolin HFA] 2 puff INHALATION RT-Q6H PRN 02/15/21 [History] Cyclobenzaprine [Flexeril] 5 mg PO HS PRN 02/15/21 [History] Ipratropium-Albuterol Nebulize [Duoneb 0.5 mg-3 mg/3 ml Soln] 3 ml INHALATION RT-Q4H 02/15/21 [History] Nicotine 21Mg/24Hr Patch [Habitrol] 1 patch TRANSDERM DAILY 02/15/21 [History] Nystatin 100,000 Unit/ml Susp [Mycostatin Oral Susp] 5 ml PO BID 02/15/21 [History] Promethazine HCl/Codeine [Promethazine-Codeine Syrup] 5 ml PO HS 02/15/21 [History] predniSONE See Taper PO DIRECTED 02/15/21 [History] Ciprofloxacin HCl [Cipro] 500 mg PO Q12H 7 Days #14 tab 02/18/21 [Rx] metroNIDAZOLE [Flagyl] 500 mg PO Q8HR #21 tab 02/18/21 [Rx] Follow up Appointment(s)/Referral(s): Macho Rich MD [Medical Doctor] - 4 Weeks Julio Acosta MD [Primary Care Provider] - 1-2 days Discharge Disposition: HOME SELF-CARE
[2021-02-18] MEDS ORDERED: POTASSIUM CHLORIDE ER 20 MEQ TAB.ER PO STA (12:44)
--- NOTE | 2021-02-18 12:46 | P.GSCN ---
<Dee Coronado - Last Filed: 02/18/21 12:37> History of Present Illness Consult date: 02/18/21 History of present illness: CHIEF COMPLAINT: Abdominal pain HISTORY OF PRESENT ILLNESS: This is a 51-year-old female with a known past medical history of a sleeve gastrectomy completed in 2019 at [facility]. She also has a history of COPD, diabetes mellitus, acid reflux and nicotine dependence. Patient denies any prior history of colitis. She feels that her mother may have had an undiagnosed colitis. Other surgical history includes and tubal ligation. Patient presents to the hospital with complaints of left lower quadrant and left sided abdominal pain. She reports th at the pain started on Wednesday. Initially she thought she was constipated she took laxative and then started having diarrhea. She was having blood also with the diarrhea. Her pain continued to increase and became very severe on the left side. She had a computed tomography scan of the abdomen and pelvis showing inflammatory changes and surrounding edema involving the left colon consistent with a nonspecific colitis. This appears new compared to old exam. Left-sided pelvic varices appeared to be new compared to old exam. Patient also been had nausea. No vomiting reported. She denies any fever chills or sweats. Medicine service to place her on antibiotics and steroids. Patient's symptoms have improved. She is tolerating a bariatric full liquid diet. Her white count has been trending downwards. Today she reports that her pain has improved greatly. She has never had a colonoscopy completed. PAST MEDICAL HISTORY: See list. PAST SURGICAL HISTORY: See list. MEDICATIONS: See list. ALLERGIES: See list. SOCIAL HISTORY: No illicit drug use. REVIEW OF SYSTEMS: CONSTITUTIONAL: Denies fever or chills. HEENT: Denies blurred vision, vision changes, or eye pain. Denies hemoptysis CARDIOVASCULAR: Denies chest pain or pressure. RESPIRATORY: No shortness of breath. GASTROINTESTINAL: See HPI for pertinent findings HEMATOLOGIC: Denies bleeding disorders. GENITOURINARY: Denies any blood in urine or increased urinary frequency. SKIN: Denies pruitis. Denies rash. PHYSICAL EXAM: VITAL SIGNS: Reviewed GENERAL: Well-developed in no acute distress. HEENT: No sclera icterus. Extraocular movements grossly intact. Moist buccal mucosa. Head is atraumatic, normocephalic. No nasal drainage. ABDOMEN: Soft. Nondistended. Minimal Left-sided abdominal pain and left l ower quadrant abdominal pain with palpation NEUROLOGIC: Alert and oriented. Cranial nerves II through XII grossly intact. LABORATORY DATA: WBC 24.1 on admission down to 13.31 hemoglobin 11.8 sodium 146 potassium 3.4 creatinine 0.5 IMAGING: CAT scan as stated above ASSESSMENT: 1. Left-sided abdominal pain with bloody stools. CAT scan showing nonspecific colitis and evidence of pelvic varices 2. Hypokalemia PLAN: -No surgical intervention planned -Recommend colonoscopy in the outpatient setting -Continue antibiotics for treatment of colitis per medicine service -Replace potassium Thank you for this consultation Physician Professor [employer] note has been reviewed by physician. Signing provider agrees with the documented findings, assessment, and plan of care. Past Medical History Past Medical History: Asthma, COPD, Diabetes Mellitus, Eye Disorder, GERD/Reflux, Pneumonia, Sleep Apnea/CPAP/BIPAP Additional Past Medical History / Comment(s): NIDDM type II(diet controlled following wt. loss), glaucoma bilaterally, tachycardia, AKIRA with CPAP not used the machine since she lost 80 lbs post gastric sleeve, bronchitis, has O2 at home which she uses prn. 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 Past INTELLIGENCE APPLICATIONS history: she has no history of STDs. History of Any Multi-Drug Resistant Organisms: None Reported Past Surgical History: Bariatric Surgery, Section, Tubal Ligation Additional Past Surgical History / Comment(s): cyst removal under right breast, x 2. gastric sleeve Sx 2017. Past Anesthesia/Blood Transfusion Reactions: No Reported Reaction Past Psychological History: Anxiety, Depression Additional Psychological History / Comment(s): Pt resides with her spouse, daughter and grandson. She is normally independent. She uses no assistive d evice. She drives. She has O2 which she uses prn and a nebulizer and glucose monitor at home. Smoking Status: Former smoker Past Alcohol Use History: None Reported Additional Past Alcohol Use History / Comment(s): Pt states she started smoking in 1986 and quit 5 months ago. Past Drug Use History: None Reported - Past Family History Mother History Unknown: Yes Family Medical History: Cancer, COPD Additional Family Medical History / Comment(s): Breast cancer. She also has a paternal aunt with breast cancer. Father History Unknown: Yes Family Medical History: COPD, Myocardial Infarction ([place]), Vascular Disorder Additional Family Medical History / Comment(s): Father at age 64yrs. Medications and Allergies Home Medications Medication Instructions Recorded Confirmed Type ALPRAZolam [Xanax] 0.5 mg PO DAILY PRN 02/16/20 02/15/21 History Atorvastatin [Lipitor] 20 mg PO HS 04/18/20 02/15/21 History Budesonide/Glycopyr/Formoterol 2 puff INHALATION RT-BID 01/26/21 02/15/21 History [Breztri Aerosphere Inhaler] Albuterol Sulfate [Ventolin HFA] 2 puff INHALATION RT-Q6H PRN 02/15/21 02/15/21 History Cyclobenzaprine [Flexeril] 5 mg PO HS PRN 02/15/21 02/15/21 History Ipratropium-Albuterol Nebulize 3 ml INHALATION RT-Q4H 02/15/21 02/15/21 History [Duoneb 0.5 mg-3 mg/3 ml Soln] Nicotine 21Mg/24Hr Patch [Habitrol] 1 patch TRANSDERM DAILY 02/15/21 02/15/21 History Nystatin 100,000 Unit/ml Susp 5 ml PO BID 02/15/21 02/15/21 History [Mycostatin Oral Susp] Promethazine HCl/Codeine 5 ml PO HS 02/15/21 02/15/21 History [Promethazine-Codeine Syrup] predniSONE See Taper PO DIRECTED 02/15/21 02/15/21 History Ciprofloxacin HCl [Cipro] 500 mg PO Q12H 7 Days #14 tab 02/18/21 Rx metroNIDAZOLE [Flagyl] 500 mg PO Q8HR #21 tab 02/18/21 Rx Allergies Allergy/AdvReac Type Severity Reaction Status Date / Time Penicillins Allergy Rash/Hives Verified 02/15/21 18:15 pollen extracts Allergy Dyspnea Verified 02/15/21 18:15 shellfish derived [Shellfish] Allergy Anaphylaxis Verified 02/15/21 18:15 Iodinated Contrast Media AdvReac Rash/Hives Verified 02/15/21 18:15 Surgical - Exam Vital Signs Temp Pulse Resp BP Pulse Ox 98.4 F 85 20 131/73 97 02/15/21 14:58 02/15/21 14:58 02/15/21 14:58 02/15/21 14:58 02/15/21 14:58 Results - Labs 02/18/21 04:58 02/18/21 04:58 Abnormal Lab Results - Last 24 Hours (Table) 02/17/21 02/17/21 02/18/21 Range/Units 17:21 20:20 04:58 WBC 13.31 H (4.50-10.00) X 10*3/uL RBC 3.91 L (4.10-5.20) X 10*6/uL Hgb 11.8 L (12.0-15.0) g/dL MCHC 31.6 L (32.0-37.0) g/dL Sodium (135-145) mmol/L Potassium (3.5-5.5) mmol/L Creatinine (0.6-1.5) mg/dL POC Glucose (mg/dL) 108 H 111 H (75-99) mg/dL Calcium (8.7-10.3) mg/dL 02/18/21 02/18/21 Range/Units 04:58 12:02 WBC (4.50-10.00) X 10*3/uL RBC (4.10-5.20) X 10*6/uL Hgb (12.0-15.0) g/dL MCHC (32.0-37.0) g/dL Sodium 146 H (135-145) mmol/L Potassium 3.4 L (3.5-5.5) mmol/L Creatinine 0.5 L (0.6-1.5) mg/dL POC Glucose (mg/dL) 100 H (75-99) mg/dL Calcium 8.2 L (8.7-10.3) mg/dL Diabetes panel 02/18/21 Range/Units 04:58 Sodium 146 H (135-145) mmol/L Potassium 3.4 L (3.5-5.5) mmol/L Chloride 109 (96-109) mmol/L Carbon Dioxide 26.5 (21.6-31.8) mmol/L BUN 9.0 (9.0-27.0) mg/dL Creatinine 0.5 L (0.6-1.5) mg/dL Glucose 89 (70-110) mg/dL Calcium 8.2 L (8.7-10.3) mg/dL Calcium panel 02/18/21 Range/Units 04:58 Calcium 8.2 L (8.7-10.3) mg/dL Pituitary panel 02/18/21 Range/Units 04:58 Sodium 146 H (135-145) mmol/L Potassium 3.4 L (3.5-5.5) mmol/L Chloride 109 (96-109) mmol/L Carbon Dioxide 26.5 (21.6-31.8) mmol/L BUN 9.0 (9.0-27.0) mg/dL Creatinine 0.5 L (0.6-1.5) mg/dL Glucose 89 (70-110) mg/dL Calcium 8.2 L (8.7-10.3) mg/dL Adrenal panel 02/18/21 Range/Units 04:58 Sodium 146 H (135-145) mmol/L Potassium 3.4 L (3.5-5.5) mmol/L Chloride 109 (96-109) mmol/L Carbon Dioxide 26.5 (21.6-31.8) mmol/L BUN 9.0 (9.0-27.0) mg/dL Creatinine 0.5 L (0.6-1.5) mg/dL Glucose 89 (70-110) mg/dL Calcium 8.2 L (8.7-10.3) mg/dL <Macho Rich - Last Filed: 02/18/21 13:13> History of Present Illness History of present illness: As above. Patient with CAT scan and history suggestive of colitis likely ischemic in nature. Agree with empiric antibiotics postdischarge. Follow up in the office to schedule colonoscopy in 4-8 weeks. Surgical - Exam Vital Signs Temp Pulse Resp BP Pulse Ox 98.4 F 85 20 131/73 97 02/15/21 14:58 02/15/21 14:58 02/15/21 14:58 02/15/21 14:58 02/15/21 14:58 Results - Labs 02/18/21 04:58 02/18/21 04:58 Abnormal Lab Results - Last 24 Hours (Table) 02/17/21 02/17/21 02/18/21 Range/Units 17:21 20:20 04:58 WBC 13.31 H (4.50-10.00) X 10*3/uL RBC 3.91 L (4.10-5.20) X 10*6/uL Hgb 11.8 L (12.0-15.0) g/dL MCHC 31.6 L (32.0-37.0) g/dL Sodium (135-145) mmol/L Potassium (3.5-5.5) mmol/L Creatinine (0.6-1.5) mg/dL POC Glucose (mg/dL) 108 H 111 H (75-99) mg/dL Calcium (8.7-10.3) mg/dL 02/18/21 02/18/21 Range/Units 04:58 12:02 WBC (4.50-10.00) X 10*3/uL RBC (4.10-5.20) X 10*6/uL Hgb (12.0-15.0) g/dL MCHC (32.0-37.0) g/dL Sodium 146 H (135-145) mmol/L Potassium 3.4 L (3.5-5.5) mmol/L Creatinine 0.5 L (0.6-1.5) mg/dL POC Glucose (mg/dL) 100 H (75-99) mg/dL Calcium 8.2 L (8.7-10.3) mg/dL Diabetes panel 02/18/21 Range/Units 04:58 Sodium 146 H (135-145) mmol/L Potassium 3.4 L (3.5-5.5) mmol/L Chloride 109 (96-109) mmol/L Carbon Dioxide 26.5 (21.6-31.8) mmol/L BUN 9.0 (9.0-27.0) mg/dL Creatinine 0.5 L (0.6-1.5) mg/dL Glucose 89 (70-110) mg/dL Calcium 8.2 L (8.7-10.3) mg/dL Calcium panel 02/18/21 Range/Units 04:58 Calcium 8.2 L (8.7-10.3) mg/dL Pituitary panel 02/18/21 Range/Units 04:58 Sodium 146 H (135-145) mmol/L Potassium 3.4 L (3.5-5.5) mmol/L Chloride 109 (96-109) mmol/L Carbon Dioxide 26.5 (21.6-31.8) mmol/L BUN 9.0 (9.0-27.0) mg/dL Creatinine 0.5 L (0.6-1.5) mg/dL Glucose 89 (70-110) mg/dL Calcium 8.2 L (8.7-10.3) mg/dL Adrenal panel 02/18/21 Range/Units 04:58 Sodium 146 H (135-145) mmol/L Potassium 3.4 L (3.5-5.5) mmol/L Chloride 109 (96-109) mmol/L Carbon Dioxide 26.5 (21.6-31.8) mmol/L BUN 9.0 (9.0-27.0) mg/dL Creatinine 0.5 L (0.6-1.5) mg/dL Glucose 89 (70-110) mg/dL Calcium 8.2 L (8.7-10.3) mg/dL
== END 2021-02-18 14:40 | disposition home or self-care (01) | DRG 387 ==
LOC: EC 14:53 → 6NMEDSUR 17:49 → OBSVTOIN 02-17 15:41
PROVIDERS: ADMIT Internal Medicine; ATTEND Internal Medicine
DX: K51.511 Left sided colitis with rectal bleeding (principal); E11.9 Type 2 diabetes mellitus without complications; I86.2 Pelvic varices; J44.9 Chronic obstructive pulmonary disease, unspecified; Z20.822 Contact with and (suspected) exposure to COVID-19; G47.33 Obstructive sleep apnea (adult) (pediatric); F41.9 Anxiety disorder, unspecified; K21.9 Gastro-esophageal reflux disease without esophagitis; E87.6 Hypokalemia; F32.9 Major depressive disorder, single episode, unspecified; K59.00 Constipation, unspecified; H40.9 Unspecified glaucoma; Z79.51 Long term (current) use of inhaled steroids; Z79.899 Other long term (current) drug therapy; Z98.84 Bariatric surgery status; Z98.891 History of uterine scar from previous surgery; Z98.51 Tubal ligation status; Z87.2 Personal history of diseases of the skin and subcutaneous tissue; Z87.891 Personal history of nicotine dependence; Z87.01 Personal history of pneumonia (recurrent); Z98.890 Other specified postprocedural states; Z91.041 Radiographic dye allergy status; Z88.0 Allergy status to penicillin; Z91.013 Allergy to seafood; Z91.048 Other nonmedicinal substance allergy status; Z82.5 Family history of asthma and other chronic lower respiratory diseases; Z80.3 Family history of malignant neoplasm of breast; Z82.49 Family history of ischemic heart disease and other diseases of the circulatory system
CPT/HCPCS: 36415; 74177; 80048; 80053; 81003; 82150; 83036; 83605; 83690; 83735; 85025; 85027; 87324; 87635; 94640; 96361; 96374; 96375; 99285

== ENCOUNTER 2021-04-29 07:16 | Day surgery (SDC) | payer OTHER ==
[2021-04-23 13:06] VITALS: BMI 24.8
[~2021-04-29 07:16] MED LIST: LACTATED RINGERS 1,000 ML IV SCH
[2021-04-29 07:54] VITALS: TEMP 97.1
[2021-04-29] MEDS ORDERED: LACTATED RINGERS 1,000 ML IV ONE ×2 (08:02)
[2021-04-29 08:04] LABS: Glucose,Whole Blood 84 mg/dL (75-99)
[2021-04-29] MEDS ORDERED: LIDOCAINE 1% INJ 10MG/ML (20 ML MDV) ONE (08:04)
[2021-04-29] MEDS ORDERED: PROPOFOL 10 MG/ML 20 ML VIAL IV ONE (08:04)
--- NOTE | 2021-04-29 08:08 | P.GSHP ---
History of Present Illness H&P Date: 04/29/21 Chief Complaint: GERD, colitis 51-year-old female here today for upper and lower endoscopy. Patient was recently hospitalized with colitis likely ischemic in nature. Patient with chronic reflux after previously gastrectomy. Symptoms have improved however stools are smaller and looser. No rectal bleeding. Past Medical History Past Medical History: Asthma, COPD, Diabetes Mellitus, Eye Disorder, GERD/Reflux, Pneumonia, Sleep Apnea/CPAP/BIPAP Additional Past Medical History / Comment(s): NIDDM type II(diet controlled following wt. loss), glaucoma bilaterally, tachycardia, AKIRA with CPAP not used the machine since she lost 80 lbs post gastric sleeve, Degenerative disc disease in her back and neck. HX COLITIS History of Any Multi-Drug Resistant Organisms: None Reported Past Surgical History: Bariatric Surgery, Section, Tubal Ligation Additional Past Surgical History / Comment(s): cyst removal under right breast, x 2. gastric sleeve Sx 2017., Past Anesthesia/Blood Transfusion Reactions: No Reported Reaction, Motion Sickness Smoking Status: Former smoker - Past Family History Mother History Unknown: Yes Family Medical History: Cancer, COPD Additional Family Medical History / Comment(s): Breast cancer. She also has a paternal aunt with breast cancer. Father History Unknown: Yes Family Medical History: COPD, Myocardial Infarction ([place]), Vascular Disorder Additional Family Medical History / Comment(s): Father at age 64yrs. Medications and Allergies Home Medications Medication Instructions Recorded Confirmed Type ALPRAZolam [Xanax] 0.5 mg PO DAILY PRN 02/16/20 04/23/21 History Atorvastatin [Lipitor] 20 mg PO HS 04/18/20 04/23/21 History Budesonide/Glycopyr/Formoterol 2 puff INHALATION RT-BID 01/26/21 04/23/21 History [Breztri Aerosphere Inhaler] Albuterol Sulfate [Ventolin HFA] 2 puff INHALATION RT-Q6H PRN 02/15/21 04/23/21 History Cyclobenzaprine [Flexeril] 5 mg PO HS PRN 02/15/21 04/23/21 History Allergies Allergy/AdvReac Type Severity Reaction Status Date / Time Penicillins Allergy Rash/Hives Verified 04/29/21 07:50 pollen extracts Allergy Dyspnea Verified 04/29/21 07:50 shellfish derived [Shellfish] Allergy Anaphylaxis Verified 04/29/21 07:50 Iodinated Contrast Media AdvReac Rash/Hives Verified 04/29/21 07:50 Surgical - Exam Vital Signs Temp Pulse Resp BP Pulse Ox 97.1 F L 66 18 129/70 97 04/29/21 07:52 04/29/21 07:52 04/29/21 07:52 04/29/21 07:52 04/29/21 07:52 Physical exam: General: Well-developed, well-nourished HEENT: Normocephalic, sclerae nonicteric Abdomen: Nontender, nondistended Extremities: No edema Neuro: Alert and oriented Assessment and Plan (1) Colitis Narrative/Plan: Will proceed with upper and lower endoscopy Current Visit: No Status: Acute Code(s): K52.9 - NONINFECTIVE GASTROENTERITIS AND COLITIS, UNSPECIFIED SNOMED Code(s): 31236525
--- NOTE | 2021-04-29 08:33 | P.PCN ---
Date of Procedure: 04/29/21 Procedure(s) Performed: PREOPERATIVE DIAGNOSIS: GERD, colitis POSTOPERATIVE DIAGNOSIS: Mild gastritis, small rectal diverticulum PROCEDURE: 1. EGD with biopsy 2. Colonoscopy with biopsy ANESTHESIA: MAC SURGEON: Macho Rich M.D. SPECIMENS: Antrum, rectum ENDOSCOPIC PROCEDURE: The patient was on the endoscopy table in the left decubitus position. The Olympus gastroscope was inserted into the oropharynx and passed under direct visualization to the region of the third portion of the duodenum. From that point the scope was slowly withdrawn inspecting all surfaces carefully. There were no neoplastic inflammatory or polypoid lesions throughout the duodenum. The pylorus was widely patent. The stomach was carefully inspected. There was minimal gastritis present. A biopsy of the antrum took place to rule out H. pylori. The esophagus was then carefully examined. There were no neoplastic inflammatory or polypoid lesions throughout the visualized esophagus. The patient was kept on the endoscopy table in the left decubitus position. The Olympus colonoscope was inserted into the anus and passed under direct visualization to the base of the cecum. The appendiceal orifice was visualized. From that point the scope was slowly withdrawn inspecting all surfaces carefully. There were no neoplastic inflammatory or polypoid lesions throughout the cecum, ascending, transverse, descending, sigmoid and rectum. There was no visible diverticulosis throughout the majority of the colon. In the rectum however at 10 cm there was noted be a small diverticulum that may have represented a fistula to the vagina. There was mild scarring in the mid rectum. Etiology unclear. There was small amount of mucosal was nodular around the diverticulum and biopsies were taken. The scope was briefly advanced and the vagina but I cannot visualize any definite fistula. Digital rectal examination was normal. The patient was taken to the recovery room in stable condition per anesthesia guidelines. RECOMMENDATIONS: Resume diet. Await biopsy results. Will ask patient to be seen by gynecology to rule out vaginal pathology.
[2021-04-29 08:45] VITALS: RESP 16
[2021-04-29 09:08] VITALS: BP 117/57; PULSE 65
== END 2021-04-29 09:34 | disposition home or self-care (01) ==
LOC: ORWHC2ENDO 07:16
PROVIDERS: ATTEND Surgery
DX: K31.9 Disease of stomach and duodenum, unspecified (principal); K63.4 Enteroptosis; K57.30 Diverticulosis of large intestine without perforation or abscess without bleeding; K21.9 Gastro-esophageal reflux disease without esophagitis; K52.9 Noninfective gastroenteritis and colitis, unspecified; J45.909 Unspecified asthma, uncomplicated; J44.9 Chronic obstructive pulmonary disease, unspecified; E11.9 Type 2 diabetes mellitus without complications; H57.9 Unspecified disorder of eye and adnexa; Z87.01 Personal history of pneumonia (recurrent); G47.30 Sleep apnea, unspecified; E78.00 Pure hypercholesterolemia, unspecified; Z98.84 Bariatric surgery status; Z98.891 History of uterine scar from previous surgery; Z98.51 Tubal ligation status; Z98.890 Other specified postprocedural states; Z80.3 Family history of malignant neoplasm of breast; Z83.6 Family history of other diseases of the respiratory system; Z91.041 Radiographic dye allergy status; Z79.52 Long term (current) use of systemic steroids; Z79.899 Other long term (current) drug therapy; Z88.0 Allergy status to penicillin; Z91.013 Allergy to seafood; Z91.09 Other allergy status, other than to drugs and biological substances
CPT/HCPCS: 81025; 88305; 45380; 43239; J2001; J2704

== ENCOUNTER 2021-05-26 12:06 | Emergency (ER) | payer OTHER ==
[2021-05-26 12:12] VITALS: BP 147/91; PULSE 77; RESP 19; TEMP 98.5
--- NOTE | 2021-05-26 13:18 | XR ---
EXAMINATION TYPE: XR chest 2V DATE OF EXAM: 05/26/2021 COMPARISON: 01/26/21 HISTORY: Shortness of breath TECHNIQUE: Frontal and lateral views of the chest are obtained. FINDINGS: Scattered senescent parenchymal changes noted. Hyperinflation compatible with COPD. No evidence for infiltrate. No evidence for atelectasis. Heart size is stable. Mediastinal structures are stable and grossly unremarkable. No evidence for hilar prominence. Degenerative changes dorsal spine. IMPRESSION: 1. No evidence for acute pulmonary disease.
[2021-05-26] MEDS ORDERED: DEXAMETHASONE SOD PHOSPHATE 10 MG/ML 1 ML VIAL IM STA (14:07)
[2021-05-26] MEDS ORDERED: ALBUTEROL HFA INHALER INHALATION STA (14:07)
--- NOTE | 2021-05-26 14:07 | ED ---
General Adult HPI - General Chief complaint: Shortness of Breath Stated complaint: Covid exposure, SOB Time Seen by Provider: 05/26/21 13:55 Source: patient, RN notes reviewed, old records reviewed Mode of arrival: ambulatory Limitations: no limitations - History of Present Illness Initial comments: 51-year-old female presents to the emergency room with complaints of congestion, sinus pressure and cough since May 09. She states that she lives with her daughter who is also Covid positive. She states that the past few days she seems to be getting worse with sinus congestion, left ear pain. States low- grade fever. She does have a history of COPD, asthma and DM. She did get the coronavirus vaccine in August and September of this year. She has not gotten a booster. She has not used any of her albuterol at home prior to arrival today. -: days(s) (17) Location: face Severity scale (1-10): 4 Quality: other (pressure face and ear) Improves with: none Associated Symptoms: cough, fever/chills, headaches, shortness of breath Treatments Prior to Arrival: none - Related Data Home Medications Medication Instructions Recorded Confirmed ALPRAZolam [Xanax] 0.5 mg PO DAILY PRN 02/16/20 04/23/21 Atorvastatin [Lipitor] 20 mg PO HS 04/18/20 04/23/21 Budesonide/Glycopyr/Formoterol 2 puff INHALATION RT-BID 01/26/21 04/23/21 [Breztri Aerosphere Inhaler] Albuterol Sulfate [Ventolin HFA] 2 puff INHALATION RT-Q6H PRN 02/15/21 04/23/21 Cyclobenzaprine [Flexeril] 5 mg PO HS PRN 02/15/21 04/23/21 Previous Rx's Medication Instructions Recorded Doxycycline Monohydrate [Monodox] 100 mg PO Q12HR 7 Days #14 cap 05/26/21 predniSONE 50 mg PO DAILY #5 tab 05/26/21 Allergies Allergy/AdvReac Type Severity Reaction Status Date / Time Penicillins Allergy Rash/Hives Verified 05/26/21 12:11 pollen extracts Allergy Dyspnea Verified 05/26/21 12:11 shellfish derived [Shellfish] Allergy Anaphylaxis Verified 05/26/21 12:11 Iodinated Contrast Media AdvReac Rash/Hives Verified 05/26/21 12:11 Review of Systems ROS Statement: Those systems with pertinent positive or pertinent negative responses have been documented in the HPI. ROS Other: All systems not noted in ROS Statement are negative. Past Medical History Past Medical History: Asthma, COPD, Diabetes Mellitus, Eye Disorder, GERD/Reflux, Pneumonia, Sleep Apnea/CPAP/BIPAP Additional Past Medical History / Comment(s): NIDDM type II(diet controlled following wt. loss), glaucoma bilaterally, tachycardia, AKIRA with CPAP not used the machine since she lost 80 lbs post gastric sleeve, Degenerative disc disease in her back and neck. HX COLITIS History of Any Multi-Drug Resistant Organisms: None Reported Past Surgical History: Bariatric Surgery, Section, Tubal Ligation Additional Past Surgical History / Comment(s): cyst removal under right breast, x 2. gastric sleeve Sx 2017., Past Anesthesia/Blood Transfusion Reactions: No Reported Reaction, Motion Sickness Past Psychological History: Anxiety, Depression Smoking Status: Current every day smoker Past Alcohol Use History: None Reported Past Drug Use History: None Reported - Past Family History Mother History Unknown: Yes Family Medical History: Cancer, COPD Additional Family Medical History / Comment(s): Breast cancer. She also has a paternal aunt with breast cancer. Father History Unknown: Yes Family Medical History: COPD, Myocardial Infarction ([place]), Vascular Disorder Additional Family Medical History / Comment(s): Father at age 64yrs. General Exam Limitations: no limitations General appearance: alert, in no apparent distress Head exam: Present: atraumatic, normocephalic, normal inspection Eye exam: Present: normal appearance, PERRL, EOMI. Absent: scleral icterus, conjunctival injection, periorbital swelling ENT exam: Present: normal exam, normal oropharynx, mucous membranes moist, TM's normal bilaterally, other (Pain with sinus pressure) Respiratory exam: Present: wheezes. Absent: rhonchi, stridor, chest wall tend erness, decreased breath sounds Cardiovascular Exam: Present: regular rate, normal rhythm, normal heart sounds. Absent: systolic murmur, diastolic murmur, rubs, gallop, clicks Neurological exam: Present: alert, oriented X3, normal gait Psychiatric exam: Present: normal affect, normal mood Skin exam: Present: warm, dry, intact, normal color. Absent: rash, cyanosis, diaphoretic Course Vital Signs 05/26/21 12:07 Temperature 98.5 F Pulse Rate 77 Respiratory 19 Rate Blood Pressure 147/91 O2 Sat by Pulse 96 Oximetry Medical Decision Making - Medical Decision Making 51-year-old female presents to the emergency room with complaints of congestion, sinus pressure and cough since May 09. She did get the coronavirus vaccine in August and September of this year. She has not gotten a booster. He was wheezing upon arrival to the emergency room she was given albuterol treatment. Chest x-ray shows no evidence of an acute pulmonary disease. There is hyperinflation compatible with COPD. No evidence of atelectasis Patient's symptoms started on May 09 she is outside the window for the monoclonal antibodies infusion. She does complain of sinus congestion and ear pain with low-grade fever. She'll be treated for sinusitis, given a course of steroids and directed to follow-up with her primary care doctor. Case discussed with Dr. Ambriz. Disposition Clinical Impression: COVID-19, Sinusitis Disposition: HOME SELF-CARE Condition: Good Instructions (If sedation given, give patient instructions): Coronavirus Disease 2019 (COVID-19), Sinusitis (ED) Additional Instructions: Use albuterol 2 puffs every 4 hours as needed. Take the prednisone for the next 5 days. Take antibiotics for sinusitis. Tylenol as needed for pain. Do not take Motrin while taking prednisone. Follow-up with the primary care doctor next week. You can take vitamin C, vitamin D, and zinc for immune health. Return to the emergency room with any new or concerning symptoms. Prescriptions: Doxycycline Monohydrate [Monodox] 100 mg PO Q12HR 7 Days #14 cap predniSONE 50 mg PO DAILY #5 tab Is patient prescribed a controlled substance at d/c from ED?: No Referrals: Julio Acosta MD [Primary Care Provider] - 1-2 days Time of Disposition: 14:15
== END 2021-05-26 15:05 | disposition home or self-care (01) ==
LOC: EC 12:06
DX: U07.1 COVID-19 (principal); J01.90 Acute sinusitis, unspecified; Z88.0 Allergy status to penicillin; J45.909 Unspecified asthma, uncomplicated; E11.9 Type 2 diabetes mellitus without complications; K21.9 Gastro-esophageal reflux disease without esophagitis; Z98.84 Bariatric surgery status; Z98.51 Tubal ligation status; F41.9 Anxiety disorder, unspecified; F32.A Depression, unspecified; F17.200 Nicotine dependence, unspecified, uncomplicated
CPT/HCPCS: 71046; 94640; 96372; 99284

== ENCOUNTER → 2021-07-01 | Outpatient (CLI) | payer OTHER ==
[2021-07-01 09:46] VITALS: BP 102/70; PULSE 74; RESP 18; TEMP 97.9
--- NOTE | 2021-07-01 10:30 | P.HPOB ---
History of Present Illness H&P Date: 07/01/21 Chief Complaint: The patient is here for her routine gynecologic exam. This is a 51-year-old 012 with an LMP of 2018. The patient is without gynecologic complaints and denies any postmenopausal bleeding. The patient had a recent colonoscopy done on 04/29/[address] Rich. His operative report indicates there was a rectal diverticulum noted and he questioned whether this could have represented an old rectovaginal fistula. She denies any stool from the vagina. The patient has had abnormal Pap smears including 1 in 2018 showing low-grade MARK. Colposcopic examination done in 2018 showed BRIDGETTE-1. Cotest in 2019 showed ASCUS with negative high-risk HPV testing. Colposcopic examination done on 06/20/2019 showed low-grade MARK. Review of Systems The patient's weight has been stable over the last year. She denies respiratory, cardiac, or G.I. problems. Past Medical History Past Medical History: Asthma, COPD, Diabetes Mellitus, Eye Disorder, GERD/Reflux, Pneumonia, Sleep Apnea/CPAP/BIPAP Additional Past Medical History / Comment(s): NIDDM type II(diet controlled following wt. loss), glaucoma bilaterally, tachycardia, AKIRA with CPAP not used the machine since she lost 80 lbs post gastric sleeve, Degenerative disc disease in her back and neck. HX COLITIS. History of rectal diverticulum. 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 History of Any Multi-Drug Resistant Organisms: None Reported Past Surgical History: Bariatric Surgery, Section, Tubal Ligation Additional Past Surgical History / Comment(s): cyst removal under right breast, x 2. gastric sleeve Sx 2016., Colonoscopy 2020. Past Anesthesia/Blood Transfusion Reactions: No Reported Reaction, Motion Sickness Past Psychological History: Anxiety, Depression Additional Psychological History / Comment(s): Pt resides with her spouse, daughter and grandson. She is normally independent. She uses no assistive device. She drives. She has O2 which she uses prn and a nebulizer and glucose monitor at home. Smoking Status: Current every day smoker (Half to one pack per day.) Past Alcohol Use History: None Reported Additional Past Alcohol Use History / Comment(s): Pt states she started smoking in 1986 -STARTED SMOKING AGAIN 12 PPD ABOUT 2020 Past Drug Use History: None Reported Additional History: She has been since 1995. She works at the [employer]. - Past Family History Mother History Unknown: Yes Family Medical History: Cancer, COPD Additional Family Medical History / Comment(s): Breast cancer. She also has a paternal aunt with breast cancer. Father History Unknown: Yes Family Medical History: COPD, Myocardial Infarction ([place]), Vascular Disorder Additional Family Medical History / Comment(s): Father at age 64yrs. Medications and Allergies Home Medications Medication Instructions Recorded Confirmed Type ALPRAZolam [Xanax] 0.5 mg PO DAILY PRN 02/16/20 07/01/21 History Atorvastatin [Lipitor] 20 mg PO HS 04/18/20 07/01/21 History Albuterol Sulfate [Ventolin HFA] 2 puff INHALATION RT-Q6H PRN 02/15/21 07/01/21 History Cyclobenzaprine [Flexeril] 5 mg PO HS PRN 02/15/21 07/01/21 History Fluticasone/Salmeterol [Advair 1 inhalation PO BID 07/01/21 07/01/21 History 500-50 Diskus] Allergies Allergy/AdvReac Type Severity Reaction Status Date / Time Penicillins Allergy Rash/Hives Verified 07/01/21 09:38 pollen extracts Allergy Dyspnea Verified 07/01/21 09:38 shellfish derived [Shellfish] Allergy Anaphylaxis Verified 07/01/21 09:38 Iodinated Contrast Media AdvReac Rash/Hives Verified 07/01/21 09:38 Exam Vital Signs Temp Pulse Resp BP Pulse Ox 07/01/21 09:40 97.9 F 74 18 102/70 96 Intake and Output 06/30/21 07/01/21 07/01/21 22:59 06:59 14:59 Other: Weight 57.153 kg Height 5 feet 0 inches, weight 126 pounds, BMI 24.6. This is a well-developed well-nourished white female who is alert and oriented times 3 in no acute distress. HEENT: Within normal limits. NECK: Supple without thyromegaly. There is a left-sided lipoma measuring approximately 4 x 5 cm. This is soft and nontender. The patient states this has been followed conservatively by her PCP for several years. CHEST AND LUNGS: Clear to auscultation. HEART: Regular rate and rhythm. BREASTS: Are without mass or discharge. AXILLARY EXAM: Negative for adenopathy. BACK: Negative for CVA tenderness. ABDOMEN: Soft, nontender, without palpable masses. PELVIC EXAM: Normal external genitalia with mild atrophy. Cervix and vagina appear normal with mild atrophy. There is no unusual discharge. There is no evidence of vaginal fistula. There is no evidence of prolapse. The uterus is midposition, nongravid size and nontender. There are no palpable adnexal masses or tenderness. RECTAL EXAM: Rectovaginal exam is negative for mass or tenderness and is negative for occult blood. There is no significant thinning of the rectovaginal septum. There is no evidence of rectovaginal fistula. EXTREMITIES: Nontender. IMPRESSION: 1. 51-year-old menopausal female with normal gynecologic exam. 2. History of low-grade Pap smears and colposcopic biopsy showing low-grade changes. 3. Finding of a rectal diverticulum by colonoscopy with no evidence of rectovaginal fistula. PLAN: 1. Pap smear cotest was performed. 2. Self breast awareness was discussed with the patient. We have also di scussed symptoms associated with inflammatory breast cancer. 3. Screening mammogram is scheduled for 08/01/2021 and the order slip was given to the patient for this. 4. Osteoporosis prevention was discussed. I have stressed the importance of adequate calcium, vitamin D and regular exercise. Recommended amounts of calcium and vitamin D were also discussed. 5. She was instructed to call if she has any evidence of a rectovaginal fistula such as stool from the vagina. 6. She was advised to return in one year for her annual well woman exam.
== END ==
LOC: WWCWWP 09:32
PROVIDERS: ATTEND Obstetrics & Gynecology
DX: Z01.419 Encounter for gynecological examination (general) (routine) without abnormal findings (principal); K57.30 Diverticulosis of large intestine without perforation or abscess without bleeding; J44.9 Chronic obstructive pulmonary disease, unspecified; E11.9 Type 2 diabetes mellitus without complications; F41.9 Anxiety disorder, unspecified; F32.A Depression, unspecified; F17.210 Nicotine dependence, cigarettes, uncomplicated; Z79.51 Long term (current) use of inhaled steroids; Z88.0 Allergy status to penicillin; Z91.041 Radiographic dye allergy status; Z91.013 Allergy to seafood; Z91.09 Other allergy status, other than to drugs and biological substances

== ENCOUNTER → 2021-08-01 | Outpatient (CLI) | payer OTHER ==
--- NOTE | 2021-08-04 13:49 | MM ---
Reason for exam: screening (asymptomatic). Last mammogram was performed 2 years and 5 months ago. History: Patient is postmenopausal. Family history of breast cancer in mother at age 60 and breast cancer in paternal aunt. Took hormonal contraceptives for 11 years beginning at age 15. Physical Findings: A clinical breast exam by your physician is recommended on an annual basis and results should be correlated with mammographic findings. MG 3D Screening Mammo W/Cad Bilateral CC and MLO view(s) were taken. Prior study comparison: March 15, 2019, bilateral MG 3d screening mammo w/cad. April 26, 2017, bilateral MG 3d diag mammo w/cad DAMON. There are scattered fibroglandular densities. No significant changes when compared with prior studies. ASSESSMENT: Benign, BI-RAD 2 RECOMMENDATION: Routine screening mammogram of both breasts in 1 year.
== END | disposition home or self-care (01) ==
LOC: RADMAMWWP 11:40
PROVIDERS: ATTEND Obstetrics & Gynecology
DX: Z12.31 Encounter for screening mammogram for malignant neoplasm of breast (principal); Z80.3 Family history of malignant neoplasm of breast; Z78.0 Asymptomatic menopausal state
CPT/HCPCS: 77063; 77067

== ENCOUNTER 2021-09-06 12:49 | Inpatient (IN) | payer OTHER ==
[2021-09-06] MEDS ORDERED: ONDANSETRON 4 MG/2 ML VIAL IVP STA (14:08)
[2021-09-06] MEDS ORDERED: SODIUM CHLORIDE 0.9% 1,000 ML IV STA ×2 (14:08→17:26)
--- NOTE | 2021-09-06 14:23 | ED ---
Nausea/Vomiting/Diarrhea HPI - General Chief complaint: Nausea/Vomiting/Diarrhea Stated complaint: N/V/D, fever, cough Time Seen by Provider: 09/06/21 13:37 Source: patient, RN notes reviewed Mode of arrival: ambulatory Limitations: no limitations - History of Present Illness Initial comments: This is a 51-year-old female who presents to the emergency department for abdominal pain, nausea, vomiting, and diarrhea. 2 weeks ago she had wheezing, shortness of breath, and chest pain. This morning, she woke up with abdominal pain, nausea, vomiting, and diarrhea. States that the wheezing, shortness of breath, and chest pain are still present. She has felt like she has a fever but has not checked her temperature. Abdominal pain is in the epigastric region. Denies any modifying factors. She had a cardiac workup in 2018 for chest pain, this was negative. Patient otherwise has had no cardiac problems. She does have a known history of COPD and asthma. MD complaint: nausea, vomiting, diarrhea, abdominal pain Onset/Timin -: days(s) Associated Abdominal Pain: Yes Location: epigastric Consistency: constant Improves with: none Associated Symptoms: chest pain, nausea/vomiting, shortness of breath - Related Data Home Medications Medication Instructions Recorded Confirmed ALPRAZolam [Xanax] 0.5 mg PO DAILY PRN 02/16/20 07/01/21 Atorvastatin [Lipitor] 20 mg PO HS 04/18/20 07/01/21 Albuterol Sulfate [Ventolin HFA] 2 puff INHALATION RT-Q6H PRN 02/15/21 07/01/21 Cyclobenzaprine [Flexeril] 5 mg PO HS PRN 02/15/21 07/01/21 Fluticasone/Salmeterol [Advair 1 inhalation PO BID 07/01/21 07/01/21 500-50 Diskus] Allergies Allergy/AdvReac Type Severity Reaction Status Date / Time Penicillins Allergy Rash/Hives Verified 09/06/21 13:16 pollen extracts Allergy Dyspnea Verified 09/06/21 13:16 shellfish derived [Shellfish] Allergy Anaphylaxis Verified 09/06/21 13:16 Iodinated Contrast Media AdvReac Rash/Hives Verified 09/06/21 13:16 Review of Systems ROS Statement: Those systems with pertinent positive or pertinent negative responses have been documented in the HPI. ROS Other: All systems not noted in ROS Statement are negative. Constitutional: Reports: fever. Denies: chills Eyes: Denies: eye pain ENT: Denies: ear pain, throat pain, congestion Respiratory: Reports: dyspnea, wheezes. Denies: cough Cardiovascular: Reports: chest pain. Denies: palpitations Gastrointestinal: Reports: abdominal pain, nausea, vomiting, diarrhea Genitourinary: Denies: urgency, dysuria Musculoskeletal: Denies: back pain Skin: Denies: rash Neurological: Denies: headache Past Medical History Past Medical History: Asthma, COPD, Diabetes Mellitus, Eye Disorder, GERD/Reflux, Pneumonia, Sleep Apnea/CPAP/BIPAP Additional Past Medical History / Comment(s): NIDDM type II(diet controlled following wt. loss), glaucoma bilaterally, tachycardia, AKIRA with CPAP not used the machine since she lost 80 lbs post gastric sleeve, Degenerative disc disease in her back and neck. HX COLITIS. History of rectal diverticulum. 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 History of Any Multi-Drug Resistant Organisms: None Reported Past Surgical History: Bariatric Surgery, Section, Tubal Ligation Additional Past Surgical History / Comment(s): cyst removal under right breast, x 2. gastric sleeve Sx 2016., Colonoscopy 2020. Past Anesthesia/Blood Transfusion Reactions: No Reported Reaction, Motion Sickness Past Psychological History: Anxiety, Depression Smoking Status: Current every day smoker Past Alcohol Use History: None Reported Past Drug Use History: None Reported - Past Family History Mother History Unknown: Yes Family Medical History: Cancer, COPD Additional Family Medical History / Comment(s): Breast cancer. She also has a paternal aunt with breast cancer. Father History Unknown: Yes Family Medical History: COPD, Myocardial Infarction ([place]), Vascular Disorder Additional Family Medical History / Comment(s): Father at age 64yrs. General Exam Limitations: no limitations General appearance: alert, in distress Head exam: Present: atraumatic, normocephalic, normal inspection Respiratory exam: Present: wheezes (in all lung dillon). Absent: respiratory distress, rales, rhonchi, stridor, chest wall tenderness, accessory muscle use, decreased breath sounds, prolonged expiratory Cardiovascular Exam: Present: regular rate, normal rhythm, normal heart sounds. Absent: systolic murmur, diastolic murmur, rubs, gallop, clicks GI/Abdominal exam: Present: soft, tenderness (epigastric), normal bowel sounds. Absent: distended, guarding, rebound, rigid Neurological exam: Present: alert, oriented X3, CN II-XII intact Psychiatric exam: Present: normal affect, normal mood Skin exam: Present: warm, dry, intact, normal color. Absent: rash Course Vital Signs 09/06/21 09/06/21 13:14 17:02 Temperature 98 F 97.3 F L Pulse Rate 103 H 93 Respiratory 18 12 Rate Blood Pressure 108/72 102/65 O2 Sat by Pulse 97 95 Oximetry Medical Decision Making - Medical Decision Making This is a 51-year-old female who presents to the emergency department for abdominal pain, nausea, vomiting, diarrhea. EKG and chest x-ray unremarkable. Troponin negative. There is no evidence of ACS. Wheezing is likely secondary to COPD and asthma. She has an elevated white blood cell count that is likely reactive and an elevated lipase. CT of the abdomen and pelvis revealed an ileus. Pain well controlled with morphine and nausea controlled with zofran, however she feels very weak. Will plan to admit the patient for observation due to ileus. Patient placed on bowel rest with IV fluids and symptomatic management. This case was discussed in detail with the attending ED physician. Presentation, findings, and treatment plan discussed in detail as well. - Lab Data Result diagrams: 09/06/21 14:42 09/06/21 14:42 Lab Results 09/06/21 09/06/21 09/06/21 Range/Units 14:42 14:42 14:42 WBC 16.4 H (3.8-10.6) k/uL RBC 5.21 (3.80-5.40) m/uL Hgb 16.0 (11.4-16.0) gm/dL Hct 50.8 H (34.0-46.0) % MCV 97.5 (80.0-100.0) fL MCH 30.6 (25.0-35.0) pg MCHC 31.4 (31.0-37.0) g/dL RDW 13.2 (11.5-15.5) % Plt Count 275 (150-450) k/uL MPV 7.8 Neutrophils % 86 % Lymphocytes % 4 % Monocytes % 6 % Eosinophils % 1 % Basophils % 0 % Neutrophils # 14.2 H (1.3-7.7) k/uL Lymphocytes # 0.6 L (1.0-4.8) k/uL Monocytes # 1.0 (0-1.0) k/uL Eosinophils # 0.2 (0-0.7) k/uL Basophils # 0.1 (0-0.2) k/uL Sodium 142 (137-145) mmol/L Potassium 4.1 (3.5-5.1) mmol/L Chloride 112 H (98-107) mmol/L Carbon Dioxide 24 (22-30) mmol/L Anion Gap 6 mmol/L BUN 14 (7-17) mg/dL Creatinine 0.60 (0.52-1.04) mg/dL Est GFR (CKD-EPI)AfAm >90 (>60 ml/min/1.73 sqM) Est GFR (CKD-EPI)NonAf >90 (>60 ml/min/1.73 sqM) Glucose 144 H (74-99) mg/dL Plasma Lactic Acid Sesar (0.7-2.0) mmol/L Calcium 9.0 (8.4-10.2) mg/dL Total Bilirubin 1.2 (0.2-1.3) mg/dL AST 17 (14-36) U/L ALT 15 (4-34) U/L Alkaline Phosphatase 104 (38-126) U/L Troponin I <0.012 (0.000-0.034) ng/mL Total Protein 6.6 (6.3-8.2) g/dL Albumin 4.0 (3.5-5.0) g/dL Amylase 98 (30-110) U/L Lipase 432 H (23-300) U/L Urine Color Urine Appearance (Clear) Urine pH (5.0-8.0) Ur Specific [place] (1.001-1.035) Urine Protein (Negative) Urine Glucose (UA) (Negative) Urine Ketones (Negative) Urine Blood (Negative) Urine Nitrite (Negative) Urine Bilirubin (Negative) Urine Urobilinogen (<2.0) mg/dL Ur Leukocyte Esterase (Negative) Coronavirus (PCR) (Not Detectd) Influenza Type A RNA (Not Detectd) Influenza Type B (PCR) (Not Detectd) 09/06/21 09/06/21 09/06/21 Range/Units 14:42 14:43 15:14 WBC (3.8-10.6) k/uL RBC (3.80-5.40) m/uL Hgb (11.4-16.0) gm/dL Hct (34.0-46.0) % MCV (80.0-100.0) fL MCH (25.0-35.0) pg MCHC (31.0-37.0) g/dL RDW (11.5-15.5) % Plt Count (150-450) k/uL MPV Neutrophils % % Lymphocytes % % Monocytes % % Eosinophils % % Basophils % % Neutrophils # (1.3-7.7) k/uL Lymphocytes # (1.0-4.8) k/uL Monocytes # (0-1.0) k/uL Eosinophils # (0-0.7) k/uL Basophils # (0-0.2) k/uL Sodium (137-145) mmol/L Potassium (3.5-5.1) mmol/L Chloride (98-107) mmol/L Carbon Dioxide (22-30) mmol/L Anion Gap mmol/L BUN (7-17) mg/dL Creatinine (0.52-1.04) mg/dL Est GFR (CKD-EPI)AfAm (>60 ml/min/1.73 sqM) Est GFR (CKD-EPI)NonAf (>60 ml/min/1.73 sqM) Glucose (74-99) mg/dL Plasma Lactic Acid Sesar 1.2 (0.7-2.0) mmol/L Calcium (8.4-10.2) mg/dL Total Bilirubin (0.2-1.3) mg/dL AST (14-36) U/L ALT (4-34) U/L Alkaline Phosphatase (38-126) U/L Troponin I (0.000-0.034) ng/mL Total Protein (6.3-8.2) g/dL Albumin (3.5-5.0) g/dL Amylase (30-110) U/L Lipase (23-300) U/L Urine Color Yellow Urine Appearance Clear (Clear) Urine pH 5.0 (5.0-8.0) Ur Specific [place] 1.032 (1.001-1.035) Urine Protein Trace H (Negative) Urine Glucose (UA) Negative (Negative) Urine Ketones Negative (Negative) Urine Blood Negative (Negative) Urine Nitrite Negative (Negative) Urine Bilirubin Negative (Negative) Urine Urobilinogen <2.0 (<2.0) mg/dL Ur Leukocyte Esterase Negative (Negative) Coronavirus (PCR) (Not Detectd) Influenza Type A RNA Not Detected (Not Detectd) Influenza Type B (PCR) Not Detected (Not Detectd) 09/06/21 Range/Units 15:14 WBC (3.8-10.6) k/uL RBC (3.80-5.40) m/uL Hgb (11.4-16.0) gm/dL Hct (34.0-46.0) % MCV (80.0-100.0) fL MCH (25.0-35.0) pg MCHC (31.0-37.0) g/dL RDW (11.5-15.5) % Plt Count (150-450) k/uL MPV Neutrophils % % Lymphocytes % % Monocytes % % Eosinophils % % Basophils % % Neutrophils # (1.3-7.7) k/uL Lymphocytes # (1.0-4.8) k/uL Monocytes # (0-1.0) k/uL Eosinophils # (0-0.7) k/uL Basophils # (0-0.2) k/uL Sodium (137-145) mmol/L Potassium (3.5-5.1) mmol/L Chloride (98-107) mmol/L Carbon Dioxide (22-30) mmol/L Anion Gap mmol/L BUN (7-17) mg/dL Creatinine (0.52-1.04) mg/dL Est GFR (CKD-EPI)AfAm (>60 ml/min/1.73 sqM) Est GFR (CKD-EPI)NonAf (>60 ml/min/1.73 sqM) Glucose (74-99) mg/dL Plasma Lactic Acid Sesar (0.7-2.0) mmol/L Calcium (8.4-10.2) mg/dL Total Bilirubin (0.2-1.3) mg/dL AST (14-36) U/L ALT (4-34) U/L Alkaline Phosphatase (38-126) U/L Troponin I (0.000-0.034) ng/mL Total Protein (6.3-8.2) g/dL Albumin (3.5-5.0) g/dL Amylase (30-110) U/L Lipase (23-300) U/L Urine Color Urine Appearance (Clear) Urine pH (5.0-8.0) Ur Specific [place] (1.001-1.035) Urine Protein (Negative) Urine Glucose (UA) (Negative) Urine Ketones (Negative) Urine Blood (Negative) Urine Nitrite (Negative) Urine Bilirubin (Negative) Urine Urobilinogen (<2.0) mg/dL Ur Leukocyte Esterase (Negative) Coronavirus (PCR) Not Detected (Not Detectd) Influenza Type A RNA (Not Detectd) Influenza Type B (PCR) (Not Detectd) Normal sinus rhythm. Ventricular rate 96 bpm, HI interval 140 ms, QRS duration 104 ms, QTC 410 ms. 09/06/21 17:30 - Radiology Data Radiology results: report reviewed, image reviewed Disposition Clinical Impression: Ileus Disposition: ADMITTED IP TO THIS [facility] Referrals: Julio Acosta MD [Primary Care Provider] - 1-2 days
[2021-09-06 15:18] LABS: Basophils # (A) 0.1 k/uL (0-0.2); Basophils % (A) 0 %; Eosinophils # (A) 0.2 k/uL (0-0.7); Eosinophils % (A) 1 %; HCT 50.8 % (34.0-46.0); Lymphocytes # (A) 0.6 k/uL (1.0-4.8); Lymphocytes % (A) 4 %; MCH 30.6 pg (25.0-35.0); MCHC 31.4 g/dL (31.0-37.0); MCV 97.5 fL (80.0-100.0); Mean Platelet Volume 7.8; Monocytes % (A) 6 %; Neutrophils # (A) 14.2 k/uL (1.3-7.7); Neutrophils % (A) 86 %; Platelet Count 275 k/uL (150-450); RBC 5.21 m/uL (3.80-5.40); RDW 13.2 % (11.5-15.5); WBC 16.4 k/uL (3.8-10.6)
[2021-09-06 15:19] LABS: Appearance,Urine Clear (Clear); Bilirubin,Urine Negative (Negative); Blood,Urine Negative (Negative); Color,Urine Yellow; Glucose,Urine (UA) Negative (Negative); Ketones,Urine Negative (Negative); Leukocyte Esterase,Urine Negative (Negative); Nitrite,Urine Negative (Negative); Protein,Urine Trace (Negative); Specific Gravity,Urine 1.032 (1.001-1.035); Urobilinogen,Urine <2.0 mg/dL (<2.0)
[2021-09-06 15:26] LABS: ALT 15 U/L (4-34); AST 17 U/L (14-36); African American GFR (CKD) >90 (>60 ml/min/1.73 sqM); Alkaline Phosphatase 104 U/L (38-126); Amylase 98 U/L (30-110); Anion Gap 6 mmol/L; Blood Urea Nitrogen 14 mg/dL (7-17); Carbon Dioxide 24 mmol/L (22-30); Chloride 112 mmol/L (98-107); Glucose 144 mg/dL (74-99); Lipase 432 U/L (23-300); Non-African American GFR(CKD) >90 (>60 ml/min/1.73 sqM); Potassium 4.1 mmol/L (3.5-5.1); Sodium 142 mmol/L (137-145); Total Bilirubin 1.2 mg/dL (0.2-1.3); Total Protein 6.6 g/dL (6.3-8.2)
--- NOTE | 2021-09-06 15:41 | XR ---
EXAMINATION TYPE: XR chest 2V DATE OF EXAM: 09/06/2021 COMPARISON: 05/26/2021 HISTORY: Wheezing and chest pain TECHNIQUE: FINDINGS: Heart is normal. There is right-sided aortic arch noted. There is no pleural effusion. Ther e are no hilar masses. Costophrenic angles are fairly clear. Bony thorax is intact. IMPRESSION: No active cardia pulmonary disease. No change.
[2021-09-06] MEDS ORDERED: MORPHINE SULFATE 2 MG/ML SYRINGE IVP STA (15:49)
--- NOTE | 2021-09-06 16:40 | CT ---
EXAMINATION TYPE: CT abdomen pelvis wo con DATE OF EXAM: 09/06/2021 COMPARISON: 02/15/2021 HISTORY: Nausea, vomiting and epigastric abdominal pain. CT DLP: 389.5 mGycm Automated exposure control for dose reduction was used. Images obtained from the diaphragm to the floor of the pelvis with no contrast. There is some interstitial infiltrate atelectasis left lung base. No pleural effusion. Heart size is fairly normal. There is slight elevated left diaphragm. There are surgical clips at the stomach. Gall bladder is intact. The bile ducts are not dilated. Liver shows no focal defect. Spleen is intact. The re is no sign of a pancreatic mass. There is no adrenal mass. Kidneys have normal size. There is no hydronephrosis. Ureters are not dilat ed. Appendix is anterior and appears normal. There are multiple mildly distended small bowel loops with fluid levels. There is fluid in the large bowel down to the rectum. Terminal ileum is intact. There is no free air. No ascites. The lumbar vertebra have normal alignment. No compression fracture. Bony pelvis is intact. The hip luma ints are intact. IMPRESSION: Large and small bowel fluid down to the rectum consistent with ileus and diarrhea. No wall thickening . There is clearing of the inflammatory changes of the sigmoid colon compared to old exam. I do not s uspect a mechanical bowel obstruction. There is some mild chronic subsegmental atelectasis left lung base without change.
[2021-09-06] MEDS ORDERED: SODIUM CHLORIDE 0.9% 500 ML 500 ML IV STA (17:26)
[2021-09-06] MEDS ORDERED: ONDANSETRON 4 MG/2 ML VIAL IVP PRN (17:33)
[2021-09-06] MEDS ORDERED: LORazepam 2 MG/ML INJ IV PRN (17:33)
[2021-09-06] MEDS ORDERED: NALOXONE 0.4 MG/ML 1 ML VIAL IV PRN (17:33)
[2021-09-06] MEDS: SODIUM CHLORIDE 0.9% 1,000 ML IV SCH (21:51)
[2021-09-06] MEDS: KETOROLAC 15 MG/ML 1 ML VIAL IVP PRN (22:43)
[2021-09-06] MEDS ORDERED: IPRATROPIUM-ALBUTEROL 3 ML NEB INHALATION PRN (23:00)
--- NOTE | 2021-09-06 23:01 | P.HPIM ---
History of Present Illness H&P Date: 09/06/21 Patient is a 51-year-old female with a PMH of COPD, type II DM, gastric bypass, hyperlipidemia who presents to the emergency room with complaints of nausea, vomiting, diarrhea. The patient reports that she was in her usual state of health until waking up this morning with severe nausea, vomiting, and diarrhea. She reports having too many episodes of vomiting, and, without blood, with some bilious material. She also reports loose watery brown bowel movements, without black tarry material or blood. Reports diffuse abdominal discomfort as a result of her vomiting. Denied any additional complaints. Denied experiencing fever, chills, chest discomfort, shortness of breath, cough. Denies eating out or anything new in the last few days. CT abdomen and pelvis in the emergency room as well as a chest x-ray were unremarkable. EKG reveals sinus rhythm at 96 bpm with an incomplete right bundle branch block. Laboratory evaluation was remarkable for WBC 16.4. Review of systems: Pertinent positives and negatives as discussed in HPI, a complete review of systems was performed and all other systems are negative. Physical examination: General: non toxic, no distress, appears at stated age, overweight Derm: no unusual rashes/lesions no unusual ecchymoses, warm, dry Head: atraumatic, normocephalic, symmetric Eyes: EOMI, no lid lag, anicteric sclera, pupils equal round reactive to light ENT: Nose and ears atraumatic, no thrush, no pharyngeal erythema Neck: No thyromegaly, no cervical lymphadenopathy, trachea midline, supple Mouth: no lip lesion, mucus membranes moist Cardiovascular: S1S2 reg, no murmur, positive posterior tibial pulse bilateral, no edema, capillary refill less than 2 seconds Lungs: CTA bilateral, no rhonchi, no rales , no accessory muscle use Abdominal: soft, nontender to palpation, no guarding, no appreciable organomegaly, normal bowel sounds Ext: no gross muscle atrophy, muscle strength 5 out of 5 in all 4 extremities grossly, no contractures, Neuro: CN II-XI grossly intact, light touch intact all 4 extremities, finger to nose within normal limits, Psych: Alert, oriented, appropriate affect Assessment/plan Intractable nausea, vomiting, diarrhea -Suspected viral gastroenteritis -Conservative management with IV fluids and antiemetics -Clear liquid diet Leukocytosis -Likely due to ongoing acute distress -Monitor for now DVT prophylaxis -Heparin subq The patient is admitted with an anticipated greater than 2 midnight stay for evaluation of nausea, vomiting CODE STATUS: Full Code Discussed with: Patient Anticipated discharge date: 09/[address]: Home Past Medical History Past Medical History: Asthma, COPD, Diabetes Mellitus, Eye Disorder, GERD/Reflux, Pneumonia, Sleep Apnea/CPAP/BIPAP Additional Past Medical History / Comment(s): NIDDM type II(diet controlled following wt. loss), glaucoma bilaterally, tachycardia, AKIRA with CPAP not used the machine since she lost 80 lbs post gastric sleeve, Degenerative disc disease in her back and neck. HX COLITIS. History of rectal diverticulum. 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 History of Any Multi-Drug Resistant Organisms: None Reported Past Surgical History: Bariatric Surgery, Section, Tubal Ligation Additional Past Surgical History / Comment(s): cyst removal under right breast, x 2. gastric sleeve Sx 2016., Colonoscopy 2020. Past Anesthesia/Blood Transfusion Reactions: No Reported Reaction, Motion Sickness Past Psychological History: Anxiety, Depression Additional Psychological History / Comment(s): Pt resides with her spouse, daughter and grandson. She is normally independent. She uses no assistive device. She drives. She has O2 which she uses prn and a nebulizer and glucose monitor at home. Smoking Status: Current every day smoker Past Alcohol Use History: None Reported Additional Past Alcohol Use History / Comment(s): Pt states she started smoking in 1986 -STARTED SMOKING AGAIN 1/2 PPD ABOUT 2020 Past Drug Use History: None Reported - Past Family History Mother History Unknown: Yes Family Medical History: Cancer, COPD Additional Family Medical History / Comment(s): Breast cancer. She also has a paternal aunt with breast cancer. Father History Unknown: Yes Family Medical History: COPD, Myocardial Infarction ([place]), Vascular Disorder Additional Family Medical History / Comment(s): Father at age 64yrs. Medications and Allergies Home Medications Medication Instructions Recorded Confirmed Type ALPRAZolam [Xanax] 0.5 mg PO BID PRN 02/16/20 09/06/21 History Atorvastatin [Lipitor] 20 mg PO HS 04/18/20 09/06/21 History Albuterol Sulfate [Ventolin HFA] 2 puff INHALATION RT-Q6H PRN 02/15/21 09/06/21 History Cyclobenzaprine [Flexeril] 5 mg PO HS PRN 02/15/21 09/06/21 History Fluticasone/Salmeterol [Advair 1 puff INHALATION RT-BID 07/01/21 09/06/21 History 500-50 Diskus] Albuterol Nebulized [Ventolin 2.5 mg INHALATION RT-QID PRN 09/06/21 09/06/21 History Nebulized] Famotidine 40 mg PO DAILY 09/06/21 09/06/21 History Ipratropium-Albuterol Nebulize 3 ml INHALATION RT-QID PRN 09/06/21 09/06/21 History [Duoneb 0.5 mg-3 mg/3 ml Soln] Montelukast [Singulair] 10 mg PO HS 09/06/21 09/06/21 History Nystatin 100,000 Unit/ml Susp 5 ml PO QID PRN 09/06/21 09/06/21 History [Mycostatin Oral Susp] Allergies Allergy/AdvReac Type Severity Reaction Status Date / Time Penicillins Allergy Rash/Hives Verified 09/06/21 18:35 pollen extracts Allergy Dyspnea Verified 09/06/21 18:35 shellfish derived [Shellfish] Allergy Anaphylaxis Verified 09/06/21 18:35 Iodinated Contrast Media AdvReac Rash/Hives Verified 09/06/21 18:35 Physical Exam Vitals: Vital Signs Temp Pulse Resp BP BP Pulse Ox 09/06/21 20:51 99.4 F 18 110/68 95 09/06/21 17:02 97.3 F L 93 12 102/65 95 09/06/21 13:14 98 F 103 H 18 108/72 97 Intake and Output 09/06/21 09/06/21 09/06/21 06:59 14:59 22:59 Other: Voiding Method Toilet Weight 58.967 kg 58.967 kg Results CBC & Chem 7: 09/06/21 14:42 09/06/21 14:42 Labs: Abnormal Lab Results - Last 24 Hours (Table) 09/06/21 09/06/21 09/06/21 Range/Units 14:42 14:42 14:43 WBC 16.4 H (3.8-10.6) k/uL Hct 50.8 H (34.0-46.0) % Neutrophils # 14.2 H (1.3-7.7) k/uL Lymphocytes # 0.6 L (1.0-4.8) k/uL Chloride 112 H (98-107) mmol/L Glucose 144 H (74-99) mg/dL Lipase 432 H (23-300) U/L Urine Protein Trace H (Negative)
[2021-09-07] MEDS: HEPARIN SODIUM,PORCINE/PF 5,000 UNIT/0.5 ML SYRINGE SQ SCH ×4 (00:33→23:19)
[2021-09-07] MEDS: KETOROLAC 15 MG/ML 1 ML VIAL IVP PRN ×2 (07:12→15:02)
[2021-09-07] MEDS: SODIUM CHLORIDE 0.9% 1,000 ML IV SCH ×2 (07:13→14:59)
[2021-09-07] MEDS: IPRATROPIUM-ALBUTEROL 3 ML NEB INHALATION SCH ×4 (08:14→20:45)
[2021-09-07] MEDS: SYMBICORT 160-4.5 MCG INHALER INHALATION SCH ×2 (08:14→20:45)
[2021-09-07 09:11] LABS: HCT 41.7 % (37.2-46.3); HGB 12.9 g/dL (12.0-15.0); MCH 30.6 pg (27.0-32.0); MCHC 30.9 g/dL (32.0-37.0); Mean Platelet Volume 10.3 fL (9.5-12.2); NRBC Per 100 WBC 0 /100 WBCS (0.0-0.0); Platelet Count 205 X 10*3/uL (140-440); RBC 4.21 X 10*6/uL (4.10-5.20); RDW 13.8 % (11.5-14.5); WBC 8.87 X 10*3/uL (4.50-10.00)
[2021-09-07 09:32] LABS: African American GFR (CKD) 121.5 (60.0-200.0); Anion Gap 10.1 mmol/L (10.00-18.00); Calcium 8.3 mg/dL (8.7-10.3); Carbon Dioxide 20.9 mmol/L (20.0-27.5); Magnesium 1.8 mg/dL (1.5-2.4); Non-African American GFR(CKD) 104.8 (60.0-200.0); Potassium 3.8 mmol/L (3.5-5.5)
--- NOTE | 2021-09-07 11:02 | P.PN ---
Subjective Progress Note Date: 09/07/21 Principal diagnosis: Gastroenteritis Patient was seen and examined. No acute events overnight. She reports improvement in her vomiting since admission. She has not vomited this morning. She reports severe nausea with minimal water intake. She is at 1 loose watery brown bowel movement since admission. She denies any chest pain, shortness breath or palpitations. No fever or chills. Objective - Vital Signs Vital signs: Vital Signs Temp 98.0 F 09/07/21 08:00 Pulse 78 09/07/21 08:27 Resp 16 09/07/21 08:27 BP 146/74 09/07/21 08:00 Pulse Ox 97 09/07/21 08:00 Intake & Output 09/06/21 09/07/21 09/07/21 18:59 06:59 18:59 Weight 58.967 kg 58.967 kg Other: Voiding Method Toilet - Exam General: [non toxic], [no distress], [appears at stated age] Derm: [warm], [dry] Head: [atraumatic], [normocephalic], [symmetric] Eyes: [EOMI], [no lid lag], [anicteric sclera] Mouth: [no lip lesion], [mucus membranes moist] Cardiovascular: [S1S2 reg], [no murmur] Lungs: [Scattered wheezing bilateral], [no rhonchi, no rales] , [no accessory muscle use] Abdominal: [soft], [ nontender to palpation], [no guarding], [no appreciable organomegaly], [hyperactive bowel sounds] Ext: [no gross muscle atrophy], [no edema], [no contractures] Neuro: [no focal neuro deficits] Psych: [Alert], [oriented], [appropriate affect] - Labs CBC & Chem 7: 09/07/21 04:13 09/07/21 04:13 Labs: Abnormal Lab Results - Last 24 Hours (Table) 09/06/21 09/06/21 09/06/21 Range/Units 14:42 14:42 14:43 WBC 16.4 H (3.8-10.6) k/uL Hct 50.8 H (34.0-46.0) % MCV (80.0-97.0) fL MCHC (32.0-37.0) g/dL Neutrophils # 14.2 H (1.3-7.7) k/uL Lymphocytes # 0.6 L (1.0-4.8) k/uL Chloride 112 H (98-107) mmol/L Glucose 144 H (74-99) mg/dL Calcium (8.7-10.3) mg/dL Lipase 432 H (23-300) U/L Urine Protein Trace H (Negative) 09/07/21 09/07/21 Range/Units 04:13 04:13 WBC (3.8-10.6) k/uL Hct (34.0-46.0) % MCV 99.0 H (80.0-97.0) fL MCHC 30.9 L (32.0-37.0) g/dL Neutrophils # (1.3-7.7) k/uL Lymphocytes # (1.0-4.8) k/uL Chloride (98-107) mmol/L Glucose (74-99) mg/dL Calcium 8.3 L (8.7-10.3) mg/dL Lipase (23-300) U/L Urine Protein (Negative) Assessment and Plan Assessment: Intractable nausea, vomiting, diarrhea (improving) -Suspected viral gastroenteritis -Conservative management with IV fluids and antiemetics -Clear liquid diet Mild COPD exacerbation Nicotine abuse -DuoNeb scheduled and as needed for shortness of breath and wheezing. -Continue home medication of Symbicort and Singulair. -Hold steroids for now due to her history of pre-diabetes Resolved: Leukocytosis DVT prophylaxis -Heparin subq The patient is admitted with an anticipated greater than 2 midnight stay for evaluation of nausea, vomiting CODE STATUS: Full Code Discussed with: Patient Anticipated discharge date: 09/[address]: Home We'll continue present management for 1 more day. Switch diet to full liquid diet. Anticipate DC tomorrow morning if patient able to tolerate oral intake.
[2021-09-07] MEDS: ATORVASTATIN 20 MG TAB PO SCH (20:20)
[2021-09-07] MEDS: MONTELUKAST 10 MG TAB PO SCH (20:20)
[2021-09-07] MEDS: ALPRAZolam 0.5 MG TAB PO PRN (20:24)
[2021-09-08] MEDS: KETOROLAC 15 MG/ML 1 ML VIAL IVP PRN (00:36)
[2021-09-08] MEDS: HEPARIN SODIUM,PORCINE/PF 5,000 UNIT/0.5 ML SYRINGE SQ SCH ×3 (07:52→23:35)
[2021-09-08] MEDS: SYMBICORT 160-4.5 MCG INHALER INHALATION SCH ×2 (08:41→20:06)
[2021-09-08] MEDS: IPRATROPIUM-ALBUTEROL 3 ML NEB INHALATION SCH ×4 (08:42→20:06)
[2021-09-08] MEDS: SODIUM CHLORIDE 0.9% 1,000 ML IV SCH (15:55)
--- NOTE | 2021-09-08 16:21 | P.PN ---
Subjective Progress Note Date: 09/08/21 Abdominal pain is improving, patient is still complaining of mild nausea but no vomiting over the last 24 hours. She is tolerating only small amount of water and food intake. She continues to have watery diarrhea today, vital signs within normal, should been afebrile. She reports feeling very weak and is apprehensive about going home today Objective - Vital Signs Vital signs: Vital Signs Temp 98.5 F 09/08/21 14:00 Pulse 76 09/08/21 16:13 Resp 18 09/08/21 14:00 BP 117/72 09/08/21 14:00 Pulse Ox 93 L 09/08/21 14:00 Intake & Output 09/07/21 09/08/21 09/08/21 18:59 06:59 18:59 Other: Voiding Method Toilet Toilet # Voids 3 4 - Constitutional General appearance: Present: average body habitus, cooperative - EENT Eyes: Present: EOMI, PERRLA - Neck Neck: Present: normal ROM - Respiratory Respiratory: bilateral: wheezing, negative: rhonchi - Cardiovascular Rhythm: regular Heart sounds: normal: S1, S2 Abnormal Heart Sounds: Absent: systolic murmur, diastolic murmur - Gastrointestinal General gastrointestinal: Present: distended, hyperactive bowel sounds. Absent: splenomegaly, tenderness - Neurologic Neurologic: Present: CNII-XII intact - Musculoskeletal Musculoskeletal: Present: strength equal bilaterally - Psychiatric Psychiatric: Present: A&O x's 3, appropriate affect - Labs CBC & Chem 7: 09/07/21 04:13 09/07/21 04:13 Assessment and Plan Plan: Intractable nausea, vomiting, diarrhea -Improving, but patient is still having watery diarrhea, and has been able to only tolerate small amount of oral intake -Suspected viral gastroenteritis -Conservative management with IV fluids and antiemetics -Advance diet as tolerated Mild COPD exacerbation Improving Nicotine abuse -DuoNeb scheduled and as needed for shortness of breath and wheezing. -Continue home medication of Symbicort and Singulair. -We'll hold off on steroids for now as this is mild and improving Resolved: Leukocytosis DVT prophylaxis -Heparin subq Anticipated discharge home tomorrow Time with Patient: Less than 30
[2021-09-08] MEDS: ATORVASTATIN 20 MG TAB PO SCH (19:54)
[2021-09-08] MEDS: MONTELUKAST 10 MG TAB PO SCH (19:54)
[2021-09-08 20:37] LABS: Glucose,Whole Blood 96 mg/dL (75-99)
[2021-09-08] MEDS: ALPRAZolam 0.5 MG TAB PO PRN (23:35)
[2021-09-09 02:23] VITALS: RESP 18
[2021-09-09 06:51] LABS: Glucose,Whole Blood 92 mg/dL (75-99)
[2021-09-09] MEDS: HEPARIN SODIUM,PORCINE/PF 5,000 UNIT/0.5 ML SYRINGE SQ SCH (07:29)
[2021-09-09 08:06] VITALS: TEMP 98
[2021-09-09 09:17] LABS: Basophils # (A) 0.06 X 10*3/uL (0.00-0.10); Eosinophils % (A) 4.8 %; HCT 40.9 % (37.2-46.3); HGB 13.2 g/dL (12.0-15.0); Immature Grans, Automated 1.1 %; Lymphocytes # (A) 1.87 X 10*3/uL (0.90-5.00); Lymphocytes % (A) 30.2 %; MCH 30.3 pg (27.0-32.0); MCHC 32.3 g/dL (32.0-37.0); MCV 93.8 fL (80.0-97.0); Monocytes # (A) 0.93 X 10*3/uL (0.20-1.00); NRBC Per 100 WBC 0 /100 WBCS (0.0-0.0); Neutrophils # (A) 2.96 X 10*3/uL (1.80-7.70); Neutrophils % (A) 47.9 %; Platelet Count 239 X 10*3/uL (140-440); RBC 4.36 X 10*6/uL (4.10-5.20); RDW 13.1 % (11.5-14.5); WBC 6.19 X 10*3/uL (4.50-10.00)
[2021-09-09 09:20] LABS: Albumin 3.4 g/dL (3.8-4.9); Albumin/Globulin Ratio 1.89 (1.60-3.17); Anion Gap 10.4 mmol/L (10.00-18.00); BUN/Creat Ratio 5.2 Ratio (12.00-20.00); Blood Urea Nitrogen 2.6 mg/dL (9.0-27.0); Calcium 8.7 mg/dL (8.7-10.3); Carbon Dioxide 24.6 mmol/L (20.0-27.5); Globulin 1.8 g/dL (1.6-3.3); Non-African American GFR(CKD) 111.3 (60.0-200.0); Potassium 3.4 mmol/L (3.5-5.5); Total Bilirubin 0.4 mg/dL (0.30-1.20); Total Protein 5.2 g/dL (6.2-8.2)
[2021-09-09] MEDS: SYMBICORT 160-4.5 MCG INHALER INHALATION SCH (09:32)
[2021-09-09] MEDS: IPRATROPIUM-ALBUTEROL 3 ML NEB INHALATION SCH ×2 (09:32→12:03)
[2021-09-09 15:26] VITALS: BP 109/67; PULSE 69
--- NOTE | 2021-09-09 17:17 | P.DS ---
Providers Date of admission: 09/06/21 18:06 Expected date of discharge: 09/09/21 Attending physician: Germán Gray MD Primary care physician: Julio Acosta MD Hospital Course: Discharge Diagnosis: Viral gastroenteritis Mild COPD exacerbation treated without steroids Tobacco abuse Hospital Course: Patient is a 51-year-old female with a history of diabetes mellitus type 2, gastric bypass, diverticulitis, and dyslipidemia who initially presented to the ER with complaints of nausea vomiting or diarrhea. CT abdomen and pelvis demonstrated large and small bowel fluid collection stopped the recommended amount consistent with ileus and diarrhea along with clearing of inflammatory changes. Patient was subsequently admitted for acute gastroenteritis. She was started on IV fluids and a clear liquid diet. She continued to progress well and was tolerating normal diet. She was considered stable for discharge home. Follow-up: Dr. Cuevas, resume home bronchodilator regimen. Patient seen and examined at bedside. Patient seen and examined at bedside. She denies any nausea, vomiting, diarrhea. Doing well and asking to go home. Vital signs reviewed and stable. General: non toxic, no distress, appears at stated age Derm: warm, dry Head: atraumatic, normocephalic, symmetric Eyes: EOMI, no lid lag, anicteric sclera Mouth: no lip lesion, mucus membranes moist Cardiovascular: S1S2 reg, no murmur, positive posterior tibial pulse bilateral, Lungs: Wheezes bilateral bases, no rhonchi, no rales , no accessory muscle use Abdominal: soft, nontender to palpation, no guarding, no appreciable organomegaly Ext: no gross muscle atrophy, no edema, no contractures Neuro: CN II-XI grossly intact, no focal neuro deficits Psych: Alert, oriented, appropriate affect A total of 25 minutes of time were spent preparing this complex discharge summary . Patient Condition at Discharge: Fair Plan - Discharge Summary Discharge Rx Participant: Yes New Discharge Prescriptions: Continue ALPRAZolam [Xanax] 0.5 mg PO BID PRN PRN Reason: Anxiety Atorvastatin [Lipitor] 20 mg PO HS Cyclobenzaprine [Flexeril] 5 mg PO HS PRN PRN Reason: Muscle Pain Nystatin 100,000 Unit/ml Susp [Mycostatin Oral Susp] 5 ml PO QID PRN PRN Reason: THRUSH Montelukast [Singulair] 10 mg PO HS Famotidine 40 mg PO DAILY Albuterol Nebulized [Ventolin Nebulized] 2.5 mg INHALATION RT-QID PRN PRN Reason: Shortness Of Breath Albuterol Sulfate [Ventolin HFA] 2 puff INHALATION RT-Q6H PRN PRN Reason: Shortness Of Breath Fluticasone/Salmeterol [Advair 500-50 Diskus] 1 puff INHALATION RT-BID Ipratropium-Albuterol Nebulize [Duoneb 0.5 mg-3 mg/3 ml Soln] 3 ml INHALATION RT-QID PRN PRN Reason: Shortness Of Breath Discharge Medication List ALPRAZolam [Xanax] 0.5 mg PO BID PRN 02/16/20 [History] Atorvastatin [Lipitor] 20 mg PO HS 04/18/20 [History] Albuterol Sulfate [Ventolin HFA] 2 puff INHALATION RT-Q6H PRN 02/15/21 [History] Cyclobenzaprine [Flexeril] 5 mg PO HS PRN 02/15/21 [History] Fluticasone/Salmeterol [Advair 500-50 Diskus] 1 puff INHALATION RT-BID 07/01/21 [History] Albuterol Nebulized [Ventolin Nebulized] 2.5 mg INHALATION RT-QID PRN 09/06/21 [History] Famotidine 40 mg PO DAILY 09/06/21 [History] Ipratropium-Albuterol Nebulize [Duoneb 0.5 mg-3 mg/3 ml Soln] 3 ml INHALATION RT-QID PRN 09/06/21 [History] Montelukast [Singulair] 10 mg PO HS 09/06/21 [History] Nystatin 100,000 Unit/ml Susp [Mycostatin Oral Susp] 5 ml PO QID PRN 09/06/21 [History] Follow up Appointment(s)/Referral(s): Julio Acosta MD [Primary Care Provider] - 1-2 days (patient to call and make appointment after D/C) Patient Instructions/Handouts: COPD (Chronic Obstructive Pulmonary Disease) (GEN), Ileus (DC) Activity/Diet/Wound Care/Special Instructions: Activity: as tolerated Diet: regular Discharge Disposition: HOME SELF-CARE
== END 2021-09-09 15:35 | disposition home or self-care (01) | DRG 392 ==
LOC: EC 12:49 → 4SSUR 18:06
PROVIDERS: ADMIT Family Medicine; ATTEND Family Medicine
DX: A08.4 Viral intestinal infection, unspecified (principal); J44.1 Chronic obstructive pulmonary disease with (acute) exacerbation; K56.7 Ileus, unspecified; R19.7 Diarrhea, unspecified; Z20.822 Contact with and (suspected) exposure to COVID-19; E11.9 Type 2 diabetes mellitus without complications; E78.5 Hyperlipidemia, unspecified; F17.210 Nicotine dependence, cigarettes, uncomplicated; G47.33 Obstructive sleep apnea (adult) (pediatric); H40.9 Unspecified glaucoma; F32.A Depression, unspecified; F41.9 Anxiety disorder, unspecified; I45.10 Unspecified right bundle-branch block; Z79.899 Other long term (current) drug therapy; Z80.3 Family history of malignant neoplasm of breast; Z82.49 Family history of ischemic heart disease and other diseases of the circulatory system; Z82.5 Family history of asthma and other chronic lower respiratory diseases; Z98.84 Bariatric surgery status; Z88.0 Allergy status to penicillin; Z91.041 Radiographic dye allergy status; Z91.013 Allergy to seafood; Z98.51 Tubal ligation status
CPT/HCPCS: 36415; 71046; 74176; 80048; 80053; 81003; 82150; 83605; 83690; 83735; 84484; 85025; 85027; 87502; 87635; 93005; 94640; 96361; 96374; 96375; 99285

== ENCOUNTER 2021-11-12 19:10 | Emergency (ER) | payer OTHER ==
[2021-11-12 19:27] VITALS: BP 138/94; PULSE 94; RESP 16; TEMP 99
[2021-11-12 20:01] LABS: Basophils # (A) 0.2 k/uL (0-0.2); Basophils % (A) 2 %; Eosinophils # (A) 0.2 k/uL (0-0.7); Eosinophils % (A) 2 %; HCT 51.5 % (34.0-46.0); HGB 16.1 gm/dL (11.4-16.0); Lymphocytes # (A) 2.2 k/uL (1.0-4.8); Lymphocytes % (A) 20 %; MCH 29.6 pg (25.0-35.0); MCHC 31.2 g/dL (31.0-37.0); Mean Platelet Volume 8.4; Monocytes # (A) 0.7 k/uL (0-1.0); Monocytes % (A) 6 %; Neutrophils # (A) 7.4 k/uL (1.3-7.7); Neutrophils % (A) 68 %; Platelet Count 277 k/uL (150-450); RBC 5.43 m/uL (3.80-5.40); RDW 12.3 % (11.5-15.5); WBC 10.9 k/uL (3.8-10.6)
[2021-11-12 20:09] LABS: ALT 14 U/L (4-34); AST 24 U/L (14-36); African American GFR (CKD) >90 (>60 ml/min/1.73 sqM); Albumin 4.8 g/dL (3.5-5.0); Alkaline Phosphatase 125 U/L (38-126); Anion Gap 9 mmol/L; Blood Urea Nitrogen 16 mg/dL (7-17); Calcium 9.8 mg/dL (8.4-10.2); Carbon Dioxide 27 mmol/L (22-30); Chloride 105 mmol/L (98-107); Glucose 79 mg/dL (74-99); Magnesium 2.1 mg/dL (1.6-2.3); Non-African American GFR(CKD) >90 (>60 ml/min/1.73 sqM); Potassium 4.3 mmol/L (3.5-5.1); Sodium 141 mmol/L (137-145); Total Bilirubin 0.9 mg/dL (0.2-1.3); Total Protein 7.8 g/dL (6.3-8.2)
[2021-11-12 20:17] LABS: INR 0.9 (<1.2)
[2021-11-12 20:18] LABS: Partial Thromboplastin Time 22.5 sec (22.0-30.0); Prothrombin Time 10.2 sec (9.0-12.0)
--- NOTE | 2021-11-12 20:29 | XR ---
EXAMINATION TYPE: XR chest 2V DATE OF EXAM: 11/12/2021 7:41 PM COMPARISON: Chest radiographs from 09/06/2021 TECHNIQUE: XR chest 2V Frontal and lateral views of the chest. CLINICAL INDICATION:Female, 51 years old with history of Chest Pain; FINDINGS: Lungs/Pleura: There is no evidence of pleural effusion, focal consolidation, or pneumothorax. Pulmonary vascularity: Unremarkable. Heart/mediastinum: Cardiomediastinal silhouette is enlarged and stable. Musculoskeletal: No acute osseous pathology. IMPRESSION: No significant change from prior without acute cardiopulmonary disease/process.
--- NOTE | 2021-11-12 22:19 | ED ---
Chest Pain HPI - General Chief Complaint: Chest Pain Stated Complaint: Chest Pain Time Seen by Provider: 11/12/21 21:57 Source: patient Mode of arrival: wheelchair Limitations: no limitations - History of Present Illness Initial Comments: This patient is a 51-year-old woman who presents to have evaluation of pain at the left sternal border. She states that it had come on Wednesday a little after noon. She states the pain is intermittent and sometimes comes on with movement, specifically she remembers closing a window and that caused the pain to come on. She states that it is achy and is brief. Currently no pain. She has not had any accompanying symptoms. No dyspnea, diaphoresis, palpitations, lightheadedness or syncope. No nausea or vomiting. MD Complaint: chest pain Onset/Timin -: days(s) Onset: during rest Pain Location: substernal, left chest Pain Radiation: none Severity: mild Quality: aching Consistency: intermittent Improves With: nothing Worsens With: movement Treatments Prior to Arrival: none - Related Data Home Medications Medication Instructions Recorded Confirmed ALPRAZolam [Xanax] 0.5 mg PO BID PRN 02/16/20 09/06/21 Atorvastatin [Lipitor] 20 mg PO HS 04/18/20 09/06/21 Albuterol Sulfate [Ventolin HFA] 2 puff INHALATION RT-Q6H PRN 02/15/21 09/06/21 Cyclobenzaprine [Flexeril] 5 mg PO HS PRN 02/15/21 09/06/21 Fluticasone Propion/Salmeterol 1 puff INHALATION RT-BID 07/01/21 09/06/21 [Advair 500-50 Diskus] Albuterol Nebulized [Ventolin 2.5 mg INHALATION RT-QID PRN 09/06/21 09/06/21 Nebulized] Famotidine 40 mg PO DAILY 09/06/21 09/06/21 Ipratropium-Albuterol Nebulize 3 ml INHALATION RT-QID PRN 09/06/21 09/06/21 [Duoneb 0.5 mg-3 mg/3 ml Soln] Montelukast [Singulair] 10 mg PO HS 09/06/21 09/06/21 Nystatin 100,000 Unit/ml Susp 5 ml PO QID PRN 09/06/21 09/06/21 [Mycostatin Oral Susp] Previous Rx's Medication Instructions Recorded Ibuprofen [Motrin] 600 mg PO Q8HR PRN #20 tab 11/12/21 Allergies Allergy/AdvReac Type Severity Reaction Status Date / Time Penicillins Allergy Rash/Hives Verified 11/12/21 19:23 pollen extracts Allergy Dyspnea Verified 11/12/21 19:23 shellfish derived [Shellfish] Allergy Anaphylaxis Verified 11/12/21 19:23 Iodinated Contrast Media AdvReac Rash/Hives Verified 11/12/21 19:23 Review of Systems ROS Statement: Those systems with pertinent positive or pertinent negative responses have been documented in the HPI. ROS Other: All systems not noted in ROS Statement are negative. Constitutional: Denies: fever, chills Respiratory: Denies: cough, dyspnea, wheezes Cardiovascular: Reports: as per HPI, chest pain. Denies: palpitations, orthopnea, edema, syncope Gastrointestinal: Denies: abdominal pain, nausea, vomiting, diarrhea Genitourinary: Denies: dysuria, frequency Musculoskeletal: Denies: back pain Skin: Denies: rash Neurological: Denies: headache, weakness EKG Findings - EKG Results: EKG: interpreted by ERMD, sinus rhythm (Rate 83 bpm) - Blocks, [place], Hypertrophy, ST Abn: AV and intraventricular conduction: right bundle branch block (fixed/intermittent, complete/incomplete) (Incomplete) QRS axis and voltage: left axis deviation (-30 to -90) Past Medical History Past Medical History: Asthma, COPD, Diabetes Mellitus, Eye Disorder, GERD/Reflux, Pneumonia, Sleep Apnea/CPAP/BIPAP Additional Past Medical History / Comment(s): NIDDM type II(diet controlled following wt. loss), glaucoma bilaterally, tachycardia, AKIRA with CPAP not used the machine since she lost 80 lbs post gastric sleeve, Degenerative disc disease in her back and neck. HX COLITIS. History of rectal diverticulum. 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 History of Any Multi-Drug Resistant Organisms: None Reported Past Surgical History: Bariatric Surgery, Section, Tubal Ligation Additional Past Surgical History / Comment(s): cyst removal under right breast, x 2. gastric sleeve Sx 2016., Colonoscopy 2020. Past Anesthesia/Blood Transfusion Reactions: No Reported Reaction, Motion Sickness Past Psychological History: Anxiety, Depression Smoking Status: Current every day smoker Past Alcohol Use History: None Reported Past Drug Use History: None Reported - Past Family History Mother History Unknown: Yes Family Medical History: Cancer, COPD Additional Family Medical History / Comment(s): Breast cancer. She also has a paternal aunt with breast cancer. Father History Unknown: Yes Family Medical History: COPD, Myocardial Infarction ([place]), Vascular Disorder Additional Family Medical History / Comment(s): Father at age 64yrs. General Exam Limitations: no limitations General appearance: alert, in no apparent distress Head exam: Present: atraumatic, normocephalic Eye exam: Present: normal appearance. Absent: scleral icterus, conjunctival injection Neck exam: Present: normal inspection Respiratory exam: Present: normal lung sounds bilaterally, chest wall tenderness (There is tenderness just to the left of the sternum that reproduces the patient's pain). Absent: respiratory distress, wheezes, rales, rhonchi, stridor, accessory muscle use Cardiovascular Exam: Present: regular rate, normal rhythm, normal heart sounds. Absent: systolic murmur, diastolic murmur, rubs, gallop GI/Abdominal exam: Present: soft. Absent: distended, tenderness, guarding, rebound, rigid, mass Extremities exam: Present: normal inspection, normal capillary refill. Absent: pedal edema, calf tenderness Back exam: Present: normal inspection. Absent: CVA tenderness (R), CVA tenderness (L) Neurological exam: Present: alert Skin exam: Present: warm, dry, intact, normal color. Absent: rash Course Vital Signs 11/12/21 19:21 Temperature 99 F Pulse Rate 94 Respiratory 16 Rate Blood Pressure 138/94 O2 Sat by Pulse 98 Oximetry Disposition Clinical Impression: Chest wall pain Disposition: HOME SELF-CARE Condition: Good Instructions (If sedation given, give patient instructions): Costochondritis (ED) Prescriptions: Ibuprofen [Motrin] 600 mg PO Q8HR PRN #20 tab PRN Reason: Pain Is patient prescribed a controlled substance at d/c from ED?: No Referrals: Julio Acosta MD [Primary Care Provider] - 1-2 days Time of Disposition: 22:20
== END 2021-11-12 22:49 | disposition home or self-care (01) ==
LOC: EC 19:10
DX: R07.89 Other chest pain (principal); J44.9 Chronic obstructive pulmonary disease, unspecified; E11.9 Type 2 diabetes mellitus without complications; K21.9 Gastro-esophageal reflux disease without esophagitis; Z79.83 Long term (current) use of bisphosphonates; F17.200 Nicotine dependence, unspecified, uncomplicated; Z88.0 Allergy status to penicillin; Z88.8 Allergy status to other drugs, medicaments and biological substances; Z91.048 Other nonmedicinal substance allergy status; Z91.013 Allergy to seafood
CPT/HCPCS: 36415; 71046; 80053; 83735; 84484; 85025; 85610; 85730; 93005; 99285

== ENCOUNTER 2022-02-08 04:04 | Inpatient (IN) | payer OTHER ==
[2022-02-08] MEDS ORDERED: SODIUM CHLORIDE 0.9% 1,000 ML IV STA (04:16)
[2022-02-08] MEDS ORDERED: IPRATROPIUM 0.5 MG/2.5 ML NEBU INHALATION STA (04:16)
[2022-02-08] MEDS ORDERED: SODIUM CHLORIDE 0.9% 500 ML 500 ML IV STA (04:16)
[2022-02-08] MEDS ORDERED: methylPREDNISolone SOD SUCCI 125 MG/2 ML VIAL IV STA (04:16)
[2022-02-08] MEDS ORDERED: ALBUTEROL NEBULIZED 2.5 MG/3 ML INHALATION STA (04:16)
--- NOTE | 2022-02-08 04:17 | ED ---
SOB HPI - General Chief Complaint: Shortness of Breath Stated Complaint: BRADY Time Seen by Provider: 02/08/22 04:15 Source: patient, RN notes reviewed, old records reviewed Mode of arrival: ambulatory Limitations: no limitations - History of Present Illness Initial Comments: This is a 32-year-old female to the emergency department for evaluation she is p resenting to see us today for evaluation of COPD patient does have history of COPD and has been on treatments and antibiotics with no improvement. Patient symptoms are severe. Symptoms are worsening without fever. No chest pain. Patient is no travel history or sick contacts denies any coronavirus symptoms, patient is on steroids and breathing treatments daily at home and is not getting any better may be getting worse MD Complaint: shortness of breath, cough, "asthma attack" -: days(s) Severity: severe Severity scale (1-10): 7 Quality: dull Consistency: constant Improves With: nothing Worsens With: exertion, movement Known History Of: COPD, asthma Context: recent URI, anxiety, recent illness Associated Symptoms: cough, sputum production Treatments Prior to Arrival: bronchodilator, other (Steroids) - Related Data Home Medications Medication Instructions Recorded Confirmed ALPRAZolam [Xanax] 0.5 mg PO BID PRN 02/16/20 09/06/21 Atorvastatin [Lipitor] 20 mg PO HS 04/18/20 09/06/21 Albuterol Sulfate [Ventolin HFA] 2 puff INHALATION RT-Q6H PRN 02/15/21 09/06/21 Cyclobenzaprine [Flexeril] 5 mg PO HS PRN 02/15/21 09/06/21 Fluticasone Propion/Salmeterol 1 puff INHALATION RT-BID 07/01/21 09/06/21 [Advair 500-50 Diskus] Albuterol Nebulized [Ventolin 2.5 mg INHALATION RT-QID PRN 09/06/21 09/06/21 Nebulized] Famotidine 40 mg PO DAILY 09/06/21 09/06/21 Ipratropium-Albuterol Nebulize 3 ml INHALATION RT-QID PRN 09/06/21 09/06/21 [Duoneb 0.5 mg-3 mg/3 ml Soln] Montelukast [Singulair] 10 mg PO HS 09/06/21 09/06/21 Nystatin 100,000 Unit/ml Susp 5 ml PO QID PRN 09/06/21 09/06/21 [Mycostatin Oral Susp] Previous Rx's Medication Instructions Recorded Ibuprofen [Motrin] 600 mg PO Q8HR PRN #20 tab 11/12/21 Allergies Allergy/AdvReac Type Severity Reaction Status Date / Time Penicillins Allergy Rash/Hives Verified 02/08/22 04:09 pollen extracts Allergy Dyspnea Verified 02/08/22 04:09 shellfish derived [Shellfish] Allergy Anaphylaxis Verified 02/08/22 04:09 Iodinated Contrast Media AdvReac Rash/Hives Verified 02/08/22 04:09 Review of Systems ROS Statement: Those systems with pertinent positive or pertinent negative responses have been documented in the HPI. ROS Other: All systems not noted in ROS Statement are negative. Past Medical History Past Medical History: Asthma, COPD, Diabetes Mellitus, Eye Disorder, GERD/Reflux, Pneumonia, Sleep Apnea/CPAP/BIPAP Additional Past Medical History / Comment(s): NIDDM type II(diet controlled following wt. loss), glaucoma bilaterally, tachycardia, AKIRA with CPAP not used the machine since she lost 80 lbs post gastric sleeve, Degenerative disc disease in her back and neck. HX COLITIS. History of rectal diverticulum. 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 History of Any Multi-Drug Resistant Organisms: None Reported Past Surgical History: Bariatric Surgery, Section, Tubal Ligation Additional Past Surgical History / Comment(s): cyst removal under right breast, x 2. gastric sleeve Sx 2016., Colonoscopy 2020. Past Anesthesia/Blood Transfusion Reactions: No Reported Reaction, Motion Sickness Past Psychological History: Anxiety, Depression Smoking Status: Current every day smoker Past Alcohol Use History: None Reported Past Drug Use History: None Reported - Past Family History Mother History Unknown: Yes Family Medical History: Cancer, COPD Additional Family Medical History / Comment(s): Breast cancer. She also has a paternal aunt with breast cancer. Father History Unknown: Yes Family Medical History: COPD, Myocardial Infarction ([place]), Vascular Disorder Additional Family Medical History / Comment(s): Father at age 64yrs. General Exam General appearance: alert, in no apparent distress, anxious Head exam: Present: atraumatic, normocephalic, normal inspection Eye exam: Present: normal appearance, PERRL, EOMI. Absent: scleral icterus, conjunctival injection, periorbital swelling ENT exam: Present: normal exam, mucous membranes moist Neck exam: Present: normal inspection. Absent: tenderness, meningismus, lymphadenopathy Respiratory exam: Present: respiratory distress, wheezes, accessory muscle use, decreased breath sounds, prolonged expiratory. Absent: rales, rhonchi, stridor Cardiovascular Exam: Present: regular rate, normal rhythm, normal heart sounds. Absent: systolic murmur, diastolic murmur, rubs, gallop, clicks GI/Abdominal exam: Present: soft, normal bowel sounds. Absent: distended, te nderness, guarding, rebound, rigid Extremities exam: Present: normal inspection, full ROM, normal capillary refill. Absent: tenderness, pedal edema, joint swelling, calf tenderness Back exam: Present: normal inspection Neurological exam: Present: alert, oriented X3, CN II-XII intact Psychiatric exam: Present: normal affect, normal mood Skin exam: Present: warm, dry, intact, normal color. Absent: rash Course Vital Signs 02/08/22 02/08/22 02/08/22 04:05 04:32 04:46 Temperature 98.4 F Pulse Rate 100 100 104 H Respiratory 26 H Rate Blood Pressure 166/85 O2 Sat by Pulse 93 L Oximetry - Reevaluation(s) Reevaluation #1: 02/08/22 04:59 Medical record is reviewed Reevaluation #2: 02/08/22 04:59 Patient has no improvement here in the ER Reevaluation #3: 02/08/22 04:59 Patient informed of results and questions answered - Consultations Consultation #1: Spoke with sound physicians agree to admit this patient Medical Decision Making - Medical Decision Making 52 female severe COPD exacerbation hypoxia, patient be admitted for breathing treatments supportive therapy and pulse ox monitoring. - Radiology Data Radiology results: report reviewed (Chest x-rays negative for acute disease), image reviewed Disposition Clinical Impression: Acute exacerbation of chronic obstructive airways disease, COPD exacerbation, Failure of outpatient treatment Disposition: ADMITTED IP TO THIS HOSP Condition: Fair Is patient prescribed a controlled substance at d/c from ED?: No Referrals: None,Stated [Primary Care Provider] - 1-2 days Time of Disposition: 05:20
--- NOTE | 2022-02-08 04:52 | XR ---
EXAMINATION TYPE: XR chest 1V portable DATE OF EXAM: 02/08/2022 COMPARISON: 11/12/2021 HISTORY: Chest pain : FINDINGS: There is no heart failure nor confluent pneumonic infiltrate. Costophrenic angles are clear. There is some mild coarsening of interstitial markings. No pleural effusion. There is right-sided aortic arch . Bony thorax is intact. IMPRESSION: No active cardiopulmonary disease. Mild pulmonary fibrosis. No change.
[2022-02-08] MEDS ORDERED: AZITHROMYCIN 500 MG in SODIUM CHLORIDE 0.9% 250 ML IVPB STA (05:01)
[2022-02-08] MEDS ORDERED: NALOXONE 0.4 MG/ML 1 ML VIAL IVP PRN (05:01)
[2022-02-08 05:18] LABS: Basophils % (A) 0 %; Eosinophils % (A) 0 %; HCT 48.6 % (34.0-46.0); HGB 15.6 gm/dL (11.4-16.0); Lymphocytes # (A) 0.6 k/uL (1.0-4.8); Lymphocytes % (A) 5 %; MCH 30.5 pg (25.0-35.0); MCHC 32.2 g/dL (31.0-37.0); MCV 94.9 fL (80.0-100.0); Mean Platelet Volume 7.7; Monocytes # (A) 0.5 k/uL (0-1.0); Monocytes % (A) 4 %; Neutrophils # (A) 10.6 k/uL (1.3-7.7); Neutrophils % (A) 90 %; Platelet Count 272 k/uL (150-450); RBC 5.12 m/uL (3.80-5.40); RDW 13.6 % (11.5-15.5); WBC 11.8 k/uL (3.8-10.6)
[2022-02-08 05:32] LABS: ALT 14 U/L (4-34); AST 15 U/L (14-36); African American GFR (CKD) >90 (>60 ml/min/1.73 sqM); Alkaline Phosphatase 150 U/L (38-126); Anion Gap 11 mmol/L; Blood Urea Nitrogen 18 mg/dL (7-17); Calcium 9.3 mg/dL (8.4-10.2); Carbon Dioxide 23 mmol/L (22-30); Chloride 107 mmol/L (98-107); Glucose 147 mg/dL (74-99); Magnesium 2.2 mg/dL (1.6-2.3); Non-African American GFR(CKD) >90 (>60 ml/min/1.73 sqM); Sodium 141 mmol/L (137-145); Total Bilirubin 0.7 mg/dL (0.2-1.3); Total Protein 6.5 g/dL (6.3-8.2)
[2022-02-08 05:34] LABS: INR 0.8 (<1.2); Partial Thromboplastin Time 22.3 sec (22.0-30.0); Prothrombin Time 9.5 sec (9.0-12.0)
[2022-02-08] MEDS: IPRATROPIUM-ALBUTEROL 3 ML NEB INHALATION PRN (07:29)
[2022-02-08] MEDS ORDERED: ALBUTEROL NEBULIZED 2.5 MG/3 ML INHALATION SCH (08:00)
[2022-02-08] MEDS ORDERED: NALOXONE 0.4 MG/ML 1 ML VIAL IV PRN (10:46)
[2022-02-08] MEDS ORDERED: CYCLOBENZAPRINE 5 MG TAB PO PRN (10:51)
--- NOTE | 2022-02-08 10:54 | P.HPIM ---
History of Present Illness H&P Date: 02/08/22 Chief Complaint: sob 32-year-old female with history of asthma and COPD, continues to smoke presented to the emergency department for evaluation of progressively worsening shortness of breath/cough. Cough is productive of creamy phlegm. She denied having any fevers, sore throat, sick contacts, chills. She has been feeling weak the last few days. He started feeling ill last Wednesday. No chest pain. Patient is no travel history or sick contacts. She did have some flareups of COPD in the past, flareups have been becoming more frequent the past 2 years. Denied nausea, vomiting, diarrhea, urinary symptoms. Review of Systems Complete review of system performed, pertinent positives per HPI, otherwise negative Past Medical History Past Medical History: Asthma, COPD, Diabetes Mellitus, Eye Disorder, GERD/Reflux, Pneumonia, Sleep Apnea/CPAP/BIPAP Additional Past Medical History / Comment(s): NIDDM type II(diet controlled following wt. loss), glaucoma bilaterally, tachycardia, AKIRA with CPAP not used the machine since she lost 80 lbs post gastric sleeve, Degenerative disc disease in her back and neck. HX COLITIS. History of rectal diverticulum. 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 History of Any Multi-Drug Resistant Organisms: None Reported Past Surgical History: Bariatric Surgery, Section, Tubal Ligation Additional Past Surgical History / Comment(s): cyst removal under right breast, x 2. gastric sleeve Sx 2016., Colonoscopy 2020. Past Anesthesia/Blood Transfusion Reactions: No Reported Reaction, Motion Sickness Past Psychological History: Anxiety, Depression Smoking Status: Current every day smoker Past Alcohol Use History: None Reported Past Drug Use History: None Reported - Past Family History Mother History Unknown: Yes Family Medical History: Cancer, COPD Additional Family Medical History / Comment(s): Breast cancer. She also has a paternal aunt with breast cancer. Father History Unknown: Yes Family Medical History: COPD, Myocardial Infarction ([place]), Vascular Disorder Additional Family Medical History / Comment(s): Father at age 64yrs. Medications and Allergies Home Medications Medication Instructions Recorded Confirmed Type ALPRAZolam [Xanax] 0.5 mg PO BID PRN 02/16/20 09/06/21 History Atorvastatin [Lipitor] 20 mg PO HS 04/18/20 09/06/21 History Albuterol Sulfate [Ventolin HFA] 2 puff INHALATION RT-Q6H PRN 02/15/21 09/06/21 History Cyclobenzaprine [Flexeril] 5 mg PO HS PRN 02/15/21 09/06/21 History Fluticasone Propion/Salmeterol 1 puff INHALATION RT-BID 07/01/21 09/06/21 History [Advair 500-50 Diskus] Albuterol Nebulized [Ventolin 2.5 mg INHALATION RT-QID PRN 09/06/21 09/06/21 History Nebulized] Famotidine 40 mg PO DAILY 09/06/21 09/06/21 History Ipratropium-Albuterol Nebulize 3 ml INHALATION RT-QID PRN 09/06/21 09/06/21 History [Duoneb 0.5 mg-3 mg/3 ml Soln] Montelukast [Singulair] 10 mg PO HS 09/06/21 09/06/21 History Nystatin 100,000 Unit/ml Susp 5 ml PO QID PRN 09/06/21 09/06/21 History [Mycostatin Oral Susp] Ibuprofen [Motrin] 600 mg PO Q8HR PRN #20 tab 11/12/21 Rx Allergies Allergy/AdvReac Type Severity Reaction Status Date / Time Penicillins Allergy Rash/Hives Verified 02/08/22 04:09 pollen extracts Allergy Dyspnea Verified 02/08/22 04:09 shellfish derived [Shellfish] Allergy Anaphylaxis Verified 02/08/22 04:09 Iodinated Contrast Media AdvReac Rash/Hives Verified 02/08/22 04:09 Physical Exam Vitals: Vital Signs Temp Pulse Resp BP Pulse Ox 02/08/22 08:05 94 L 02/08/22 08:00 88 L 02/08/22 07:40 87 02/08/22 07:31 70 02/08/22 07:25 74 16 158/78 92 L 02/08/22 05:13 92 18 02/08/22 04:46 104 H 02/08/22 04:32 100 02/08/22 04:05 98.4 F 100 26 H 166/85 93 L Intake and Output 02/07/22 02/08/22 02/08/22 22:59 06:59 14:59 Other: Weight 62.142 kg Constitutional: No acute distress, conversant, pleasant Eyes:Anicteric sclerae, moist conjunctiva, no lid-lag, PERRLA, ENMT: Oropharynx clear, no erythema, exudates Neck: Supple, FROM, no masses, or JVD, No carotid bruits, No thyromegaly Lungs: Wheezing and rhonchi, diffuse, Clear to percussion, Normal respiratory effort, no accessory muscle use Cardiovascular: Heart regular in rate and rhythm, No murmurs, gallops, or rubs, No peripheral edema Abdominal: Soft, Nontender, no guarding, rebound or rigidity, Normoactive bowel sounds, No hepatomegaly, No splenomegaly, No palpable mass Skin: Normal temperature, tone, texture, turgor, no induration, No subcutaneous nodules, No rash, lesions, No ulcers Extremities: No digital cyanosis, No clubbing, Pedal pulses intact and symmetrical, Radial pulses intact and symmetrical, No calf tenderness Psychiatric: Alert and oriented to person, place and time, appropriate affect, intact judgement Neuro: Muscles Strength 5/5 in all 4 extremities, Sensation to light touch grossly present throughout, Cranial nerves II-XII grossly intact, no focal sensory deficits Results CBC & Chem 7: 02/08/22 04:56 02/08/22 04:56 Labs: Abnormal Lab Results - Last 24 Hours (Table) 02/08/22 02/08/22 Range/Units 04:56 04:56 WBC 11.8 H (3.8-10.6) k/uL Hct 48.6 H (34.0-46.0) % Neutrophils # 10.6 H (1.3-7.7) k/uL Lymphocytes # 0.6 L (1.0-4.8) k/uL BUN 18 H (7-17) mg/dL Glucose 147 H (74-99) mg/dL Alkaline Phosphatase 150 H (38-126) U/L Assessment and Plan Plan: Acute COPD exacerbation Acute asthma exacerbation. Acute hypoxemic respiratory failure requiring oxygen Patient does not require oxygen at baseline Admit to MedSurg, oxygen supplements to keep saturation above 92% Steroids and bronchodilators Check pro calcitonin Consult pulmonary Essential hypertension Stable Resume medications Smoking Advised to quit Seasonal ALLERGIES GERD Stable Resume meds Admit to inpatient, expected length of stay more than 2 midnights.
--- NOTE | 2022-02-08 11:02 | P.CNPUL ---
History of Present Illness Consult date: 02/08/22 Requesting physician: Josey Navarro Reason for consult: COPD Chief complaint: Shortness of breath, cough, congestion History of present illness: This is a very pleasant 52-year-old female patient with a known history of chronic and ongoing tobacco dependence, chronic obstructive pulmonary disease with an FEV1 value 53% of predicted. She follows with Dr. Olmstead in our office. She was recently seen there and was treated for a COPD exacerbation however her symptoms continued to progress and she presented here to the emergency room early this morning. Chest x-ray reveals no acute pulmonary process. Mild pulmonary fibrosis. No change compared to previous in October 2021. White count 11.8. Hemoglobin 15.6. Lymphocytes 0.6. D-dimer 0.27. Sodium 141. Potassium 4.0. BUN 18. Creatinine 0.54. ProBNP 153. Troponin negative 1. Barnard virus by PCR not detected. She is seen today in consultation in the emergency department. Currently sitting up on the stretcher. Awake and alert in no acute distress. she was hypoxemic at 80% on room air. 94% on 2 L. Afebrile. Hemodynamically stable. She's been initiated on IV Solu-Medrol, DuoNeb inhalations, Symbicort. Pro calcitonin pending. Review of Systems REVIEW OF SYSTEMS: CONSTITUTIONAL: Denies any recent significant weight loss or weight gain. EYES: Denies change in vision. EARS, NOSE, MOUTH, THROAT: Denies headaches, denies sore throat. CARDIOVASCULAR: Denies chest pain, palpitations or syncopal episodes. RESPIRATORY: Positive for shortness of breath, cough, congestion or hemoptysis. GASTROINTESTINAL: Denies change in appetite, denies abdominal pain GENITOURINARY: Denies hematuria, denies infections. MUSKULOSKELETAL: Denies pain, denies swelling. INTEGUMENTARY: Denies rash, denies eczema. NEUROLOGICAL: Denies recent memory loss, no recent seizure activity. PSYCHIATRIC: Denies anxiety, denies depression. HEMATOLOGIC/LYMPHATIC: Denies anemia, denies enlarged lymph nodes. Past Medical History Past Medical History: Asthma, COPD, Diabetes Mellitus, Eye Disorder, GERD/Reflux, Pneumonia, Sleep Apnea/CPAP/BIPAP Additional Past Medical History / Comment(s): NIDDM type II(diet controlled following wt. loss), glaucoma bilaterally, tachycardia, AKIRA with CPAP not used the machine since she lost 80 lbs post gastric sleeve, Degenerative disc disease in her back and neck. HX COLITIS. History of rectal diverticulum. 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 History of Any Multi-Drug Resistant Organisms: None Reported Past Surgical History: Bariatric Surgery, Section, Tubal Ligation Additional Past Surgical History / Comment(s): cyst removal under right breast, x 2. gastric sleeve Sx 2016., Colonoscopy 2020. Past Anesthesia/Blood Transfusion Reactions: No Reported Reaction, Motion Sickness Past Psychological History: Anxiety, Depression Smoking Status: Current every day smoker Past Alcohol Use History: None Reported Past Drug Use History: None Reported - Past Family History Mother History Unknown: Yes Family Medical History: Cancer, COPD Additional Family Medical History / Comment(s): Breast cancer. She also has a paternal aunt with breast cancer. Father History Unknown: Yes Family Medical History: COPD, Myocardial Infarction ([place]), Vascular Disorder Additional Family Medical History / Comment(s): Father at age 64yrs. Medications and Allergies Home Medications Medication Instructions Recorded Confirmed Type ALPRAZolam [Xanax] 0.5 mg PO BID PRN 02/16/20 09/06/21 History Atorvastatin [Lipitor] 20 mg PO HS 04/18/20 09/06/21 History Albuterol Sulfate [Ventolin HFA] 2 puff INHALATION RT-Q6H PRN 02/15/21 09/06/21 History Cyclobenzaprine [Flexeril] 5 mg PO HS PRN 02/15/21 09/06/21 History Fluticasone Propion/Salmeterol 1 puff INHALATION RT-BID 07/01/21 09/06/21 History [Advair 500-50 Diskus] Albuterol Nebulized [Ventolin 2.5 mg INHALATION RT-QID PRN 09/06/21 09/06/21 History Nebulized] Famotidine 40 mg PO DAILY 09/06/21 09/06/21 History Ipratropium-Albuterol Nebulize 3 ml INHALATION RT-QID PRN 09/06/21 09/06/21 History [Duoneb 0.5 mg-3 mg/3 ml Soln] Montelukast [Singulair] 10 mg PO HS 09/06/21 09/06/21 History Nystatin 100,000 Unit/ml Susp 5 ml PO QID PRN 09/06/21 09/06/21 History [Mycostatin Oral Susp] Ibuprofen [Motrin] 600 mg PO Q8HR PRN #20 tab 11/12/21 Rx Allergies Allergy/AdvReac Type Severity Reaction Status Date / Time Penicillins Allergy Rash/Hives Verified 02/08/22 04:09 pollen extracts Allergy Dyspnea Verified 02/08/22 04:09 shellfish derived [Shellfish] Allergy Anaphylaxis Verified 02/08/22 04:09 Iodinated Contrast Media AdvReac Rash/Hives Verified 02/08/22 04:09 Physical Exam Vitals: Vital Signs Temp Pulse Resp BP Pulse Ox 02/08/22 08:05 94 L 02/08/22 08:00 88 L 02/08/22 07:40 87 02/08/22 07:31 70 02/08/22 07:25 74 16 158/78 92 L 02/08/22 05:13 92 18 02/08/22 04:46 104 H 02/08/22 04:32 100 02/08/22 04:05 98.4 F 100 26 H 166/85 93 L Intake and Output 02/07/22 02/08/22 02/08/22 22:59 06:59 14:59 Other: Weight 62.142 kg GENERAL EXAM: Alert, very pleasant 52-year-old female patient, on 2 L nasal cannula, comfortable in no apparent distress. HEAD: Normocephalic. EYES: Normal reaction of pupils, equal size. NOSE: Clear with pink turbinates. THROAT: No erythema or exudates. NECK: No masses, no JVD. CHEST: No chest wall deformity. LUNGS: Equal air entry with bilateral end expiratory wheeze, diminished. CVS: S1 and S2 normal with no audible murmur, regular rhythm. ABDOMEN: No hepatosplenomegaly, normal bowel sounds, no guarding or rigidity. SPINE: No scoliosis or deformity SKIN: No rashes CENTRAL NERVOUS SYSTEM: No focal deficits, tone is normal in all 4 extremities. EXTREMITIES: There is no peripheral edema. No clubbing, no cyanosis. Per ipheral pulses are intact. Results - Laboratory Findings CBC and BMP: 02/08/22 04:56 02/08/22 04:56 PT/INR, D-dimer PT 9.5 sec (9.0-12.0) 02/08/22 04:56 INR 0.8 (<1.2) 02/08/22 04:56 D-Dimer 0.27 mg/L FEU (<0.60) 02/08/22 04:56 Abnormal lab findings: Abnormal Labs 02/08/22 02/08/22 04:56 04:56 WBC 11.8 H Hct 48.6 H Neutrophils # 10.6 H Lymphocytes # 0.6 L BUN 18 H Glucose 147 H Alkaline Phosphatase 150 H - Diagnostic Findings Chest x-ray: image reviewed (No acute cardiopulmonary process) Assessment and Plan Assessment: Acute hypoxemic respiratory failure secondary to an acute exacerbation of chronic obstructive pulmonary disease, failed outpatient treatment Chronic obstructive pulmonary disease with an FEV1 value 53% of predicted. Maintained on Advair, albuterol and DuoNeb inhalations Chronic and ongoing tobacco dependence Hyperlipidemia Gastroesophageal reflux disease Anxiety/depression History of obstructive sleep apnea, not utilizing CPAP, had since lost 80 pounds History of obesity, status post gastric sleeve placement Plan: The patient was seen and evaluated Chest x-ray, labs and medications reviewed continue Symbicort, DuoNeb's, IV Solu-Medrol Titrate down the FiO2 as tolerated Empiric antibiotics for now, pro-calcitonin pending Educated regarding the importance of complete smoking cessation NicoDerm patch will be offered We will continue to follow and make further recommendations based on her clinical status I have personally seen and examined the patient, performed the documentation and the assessment and plan as written. Number of minutes spent on the visit: 20.
[2022-02-08] MEDS ORDERED: NICOTINE 14MG/24HR PATCH TRANSDERM SCH (11:30)
[2022-02-08] MEDS: methylPREDNISolone SOD SUCCI 125 MG/2 ML VIAL IV SCH ×3 (11:48→23:25)
[2022-02-08] MEDS: IPRATROPIUM-ALBUTEROL 3 ML NEB INHALATION SCH ×3 (12:07→19:11)
[2022-02-08] MEDS: ACETAMINOPHEN TAB 325 MG TAB PO PRN (18:08)
[2022-02-08] MEDS: SYMBICORT 160-4.5 MCG INHALER INHALATION SCH (19:11)
[2022-02-08] MEDS: ATORVASTATIN 20 MG TAB PO SCH (19:46)
[2022-02-08] MEDS: MONTELUKAST 10 MG TAB PO SCH (19:46)
[2022-02-08] MEDS ORDERED: SALMETEROL INHALATION SCH (20:00)
[2022-02-08] MEDS ORDERED: FLUTICASONE PROPION INHALATION SCH (20:00)
[2022-02-08 21:45] LABS: Glucose,Whole Blood 140 mg/dL (70-110)
[2022-02-09] MEDS: methylPREDNISolone SOD SUCCI 125 MG/2 ML VIAL IV SCH ×4 (05:06→23:05)
[2022-02-09 07:27] LABS: Glucose,Whole Blood 141 mg/dL (70-110)
[2022-02-09] MEDS: SYMBICORT 160-4.5 MCG INHALER INHALATION SCH ×2 (08:00→20:18)
[2022-02-09] MEDS: IPRATROPIUM-ALBUTEROL 3 ML NEB INHALATION SCH ×4 (08:00→20:18)
[2022-02-09] MEDS ORDERED: AZITHROMYCIN 500 MG in SODIUM CHLORIDE 0.9% 250 ML IVPB SCH (08:00)
[2022-02-09] MEDS: FAMOTIDINE 20 MG TAB PO SCH (08:08)
[2022-02-09] MEDS: NICOTINE 21MG/24HR PATCH TRANSDERM SCH (08:59)
[2022-02-09 09:37] LABS: Basophils # (A) 0.04 X 10*3/uL (0.00-0.10); Basophils % (A) 0.2 %; Eosinophils # (A) 0 X 10*3/uL (0.04-0.35); Eosinophils % (A) 0 %; HCT 43.5 % (37.2-46.3); HGB 14.2 g/dL (12.0-15.0); Immature Grans, Automated 0.9 %; Lymphocytes # (A) 0.51 X 10*3/uL (0.90-5.00); Lymphocytes % (A) 2.5 %; MCH 30.5 pg (27.0-32.0); MCHC 32.6 g/dL (32.0-37.0); MCV 93.5 fL (80.0-97.0); Mean Platelet Volume 10.7 fL (9.5-12.2); Monocytes # (A) 0.36 X 10*3/uL (0.20-1.00); Monocytes % (A) 1.8 %; NRBC Per 100 WBC 0 /100 WBCS (0.0-0.0); Neutrophils # (A) 19.02 X 10*3/uL (1.80-7.70); Neutrophils % (A) 94.6 %; Platelet Count 270 X 10*3/uL (140-440); RBC 4.65 X 10*6/uL (4.10-5.20); RDW 13.7 % (11.5-14.5); WBC 20.12 X 10*3/uL (4.50-10.00)
[2022-02-09 09:54] LABS: African American GFR (CKD) 121.1 (60.0-200.0); Albumin 3.9 g/dL (3.8-4.9); Albumin/Globulin Ratio 2.06 (1.60-3.17); Anion Gap 10.8 mmol/L (10.00-18.00); BUN/Creat Ratio 24.62 Ratio (12.00-20.00); Blood Urea Nitrogen 14.6 mg/dL (9.0-27.0); Carbon Dioxide 24.8 mmol/L (20.0-27.5); Globulin 1.9 g/dL (1.6-3.3); Non-African American GFR(CKD) 104.5 (60.0-200.0); Potassium 4.3 mmol/L (3.5-5.5); Total Bilirubin 0.5 mg/dL (0.30-1.20); Total Protein 5.8 g/dL (6.2-8.2)
--- NOTE | 2022-02-09 12:14 | P.PN ---
Subjective Progress Note Date: 02/09/22 Principal diagnosis: Asthma exacerbation. This is a very pleasant 52-year-old female patient with a known history of chronic and ongoing tobacco dependence, chronic obstructive pulmonary disease with an FEV1 value 53% of predicted. She follows with Dr. Olmstead in our office. She was recently seen there and was treated for a COPD exacerbation however her symptoms continued to progress and she presented here to the emergency room early this morning. Chest x-ray reveals no acute pulmonary process. Mild pulmonary fibrosis. No change compared to previous in October 2021. White count 11.8. Hemoglobin 15.6. Lymphocytes 0.6. D-dimer 0.27. Sodium 141. Potassium 4.0. BUN 18. Creatinine 0.54. ProBNP 153. Troponin negative 1. Barnard virus by PCR not detected. She is seen today in consultation in the emergency department. Currently sitting up on the stretcher. Awake and alert in no acute distress. she was hypoxemic at 80% on room air. 94% on 2 L. Afebrile. Hemody namically stable. She's been initiated on IV Solu-Medrol, DuoNeb inhalations, Symbicort. Pro calcitonin pending. Progress note dated 02/09/2022. 52-year-old female seen in room 629. I see this patient in my office for her underlying COPD/asthma. The patient was recently seen in the office, and was doing much better. More recently, the patient states that she started developing shortness of breath, cough, wheezing, and chest tightness, and came into the emergency room to be evaluated. After evaluation, she was admitted. Currently, she is getting a breathing treatment. She is on some nasal O2 at a couple of liters. She is currently on all appropriate medications. She was seen by a nurse practitioner and my partner yesterday. White count 20.1, hemoglobin 14.2, hematocrit 43.5, and platelet count 270,000. Sodium 143, potassium 4.3, chlorides 107, CO2 25, BUN 14.6, and creatinine 0.6. Pro- calcitonin level was 0.03. Testing for coronavirus was negative. Chest x-ray was negative. Objective - Vital Signs Vital signs: Vital Signs Temp 98.2 F 02/09/22 07:00 Pulse 78 02/09/22 11:30 Resp 18 02/09/22 07:00 BP 128/69 02/09/22 07:00 Pulse Ox 95 02/09/22 07:00 FiO2 Intake & Output 02/08/22 02/09/22 02/09/22 18:59 06:59 18:59 Intake Total 240 Balance 240 Weight 62.142 kg Intake: Oral 240 Other: # Voids 1 - Exam No acute distress, oriented 3. No audible wheezing, or use of accessory m uscles. The patient's on 2 L of oxygen. HEENT examination is grossly unremarkable. Neck supple. Full range of motion. No adenopathy thyromegaly or neck vein distention. Cardiovascular examination reveals regular rhythm rate. S1-S2 normal. No S3 or S4. No discernible murmur noted. Heart rate 78 bpm. Heart sounds are distant. Lungs reveal scattered expiratory wheezes and rhonchi. Breath sounds are coarse. No crackles. Breath sounds are equal bilaterally. There is prolongation on forced maneuver. Abdomen soft bowel sounds are heard. No masses or tenderness. Extremities are intact. No cyanosis clubbing or edema. Skin is without rash or lesion. Neurologic examination is brief but nonfocal. - Labs CBC & Chem 7: 02/09/22 04:48 02/09/22 04:48 Labs: Abnormal Lab Results - Last 24 Hours (Table) 02/08/22 02/09/22 02/09/22 Range/Units 21:44 04:48 04:48 WBC 20.12 H (4.50-10.00) X 10*3/uL Immature Gran # 0.19 H (0.00-0.04) X 10*3/uL Neutrophils # 19.02 H (1.80-7.70) X 10*3/uL Lymphocytes # 0.51 L (0.90-5.00) X 10*3/uL Eosinophils # 0 L (0.04-0.35) X 10*3/uL BUN/Creatinine Ratio 24.62 H (12.00-20.00) Ratio Glucose 169 H (70-110) mg/dL POC Glucose (mg/dL) 140 H (70-110) mg/dL AST 11 L (13-35) U/L Total Protein 5.8 L (6.2-8.2) g/dL 02/09/22 Range/Units 07:25 WBC (4.50-10.00) X 10*3/uL Immature Gran # (0.00-0.04) X 10*3/uL Neutrophils # (1.80-7.70) X 10*3/uL Lymphocytes # (0.90-5.00) X 10*3/uL Eosinophils # (0.04-0.35) X 10*3/uL BUN/Creatinine Ratio (12.00-20.00) Ratio Glucose (70-110) mg/dL POC Glucose (mg/dL) 141 H (70-110) mg/dL AST (13-35) U/L Total Protein (6.2-8.2) g/dL Assessment and Plan Assessment: Acute hypoxemic respiratory failure secondary to COPD/asthma exacerbation. COPD, moderately severe, with an FEV1 that is 53% of predicted. Chronic and ongoing tobacco use. Hyperlipidemia. GERD. Anxiety/depression. History of obstructive sleep apnea syndrome, not requiring treatment. Obesity, status post gastric sleeve procedure. 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 Plan: Plan dated 02/09/2022. The patient is evaluated at bedside. She is not ready for discharge as yet. She remains on all appropriate medications. We will continue to follow make recommendations along the way. The patient's pro-calcitonin level is extremely low. Probably does not need any antibiotics at this time. We will continue to follow and make recommendations along the way. She'll see me in the office after discharge. Time with Patient: Less than 30
[2022-02-09 12:38] LABS: Glucose,Whole Blood 124 mg/dL (70-110)
--- NOTE | 2022-02-09 15:29 | P.PN ---
Subjective Progress Note Date: 02/09/22 Principal diagnosis: SOB Hospital Course: 52-year-old female with history of asthma and COPD, nicotine dependence presenting with acute shortness of breath and cough. Patient admitted for acute COPD exacerbation. Currently on supplemental oxygen, bronchodilators and steroids. Pulmonary consulted. Subjective: Patient seen and examined at bedside. No acute events overnight. Patient claims that her breathing has improved remarkably since admission. She denies any chest pain, abdominal pain, urinary or bowel complaints. Pertinent positives and negatives as discussed above, a complete review of systems was performed and all other systems are negative. Vitals Signs Reviewed. General: nontoxic, no distress, appears at stated age Derm: warm, dry Head: atraumatic, normocephalic, symmetric Eyes: EOMI, no lid lag, anicteric sclera Mouth: no lip lesion, mucus membranes moist Cardiovascular: S1S2 reg, no murmur Lungs: Scattered wheezes, no accessory muscle use, 2 L nasal cannula Abdominal: soft, nontender to palpation, no guarding, no appreciable organomegaly Ext: no gross muscle atrophy, no edema, no contractures Neuro: CN II-XI grossly intact, no focal neuro deficits Psych: Alert, oriented, appropriate affect Assessment and Plan: Acute COPD exacerbation Acute hypoxic respiratory failure -Supplemental oxygen, continue to wean -On steroids and bronchodilators -Pulmonary consultation -procalcitonin low, discontinue azithromycin Leukocytosis -Likely secondary to steroids -No acute signs of infection Hyperlipidemia -Continue home medications Nicotine dependence -Counseled regarding smoking cessation GERD - home medication F: Oral E: Replete as needed N: Heart healthy A: As tolerated DVT ppx: Lovenox Code status: Full Code Anticipated discharge place: Home Anticipated discharge time: 1 to 2 days Objective - Vital Signs Vital signs: Vital Signs Temp 98.2 F 02/09/22 07:00 Pulse 78 02/09/22 15:08 Resp 18 02/09/22 07:00 BP 128/69 02/09/22 07:00 Pulse Ox 95 02/09/22 07:00 FiO2 Intake & Output 02/08/22 02/09/22 02/09/22 18:59 06:59 18:59 Intake Total 240 Balance 240 Weight 62.142 kg Intake: Oral 240 Other: # Voids 1 2 - Labs CBC & Chem 7: 02/09/22 04:48 02/09/22 04:48 Labs: Abnormal Lab Results - Last 24 Hours (Table) 02/08/22 02/09/22 02/09/22 Range/Units 21:44 04:48 04:48 WBC 20.12 H (4.50-10.00) X 10*3/uL Immature Gran # 0.19 H (0.00-0.04) X 10*3/uL Neutrophils # 19.02 H (1.80-7.70) X 10*3/uL Lymphocytes # 0.51 L (0.90-5.00) X 10*3/uL Eosinophils # 0 L (0.04-0.35) X 10*3/uL BUN/Creatinine Ratio 24.62 H (12.00-20.00) Ratio Glucose 169 H (70-110) mg/dL POC Glucose (mg/dL) 140 H (70-110) mg/dL AST 11 L (13-35) U/L Total Protein 5.8 L (6.2-8.2) g/dL 02/09/22 02/09/22 Range/Units 07:25 12:37 WBC (4.50-10.00) X 10*3/uL Immature Gran # (0.00-0.04) X 10*3/uL Neutrophils # (1.80-7.70) X 10*3/uL Lymphocytes # (0.90-5.00) X 10*3/uL Eosinophils # (0.04-0.35) X 10*3/uL BUN/Creatinine Ratio (12.00-20.00) Ratio Glucose (70-110) mg/dL POC Glucose (mg/dL) 141 H 124 H (70-110) mg/dL AST (13-35) U/L Total Protein (6.2-8.2) g/dL
[2022-02-09 17:23] LABS: Glucose,Whole Blood 134 mg/dL (70-110)
[2022-02-09] MEDS: ALPRAZolam 0.5 MG TAB PO PRN (20:48)
[2022-02-09] MEDS: ATORVASTATIN 20 MG TAB PO SCH (20:48)
[2022-02-09] MEDS: MONTELUKAST 10 MG TAB PO SCH (20:48)
[2022-02-09] MEDS: NYSTATIN 100,000 UNIT/ML SUSP 500,000 UNIT/5 ML CUP PO SCH (20:48)
[2022-02-09 21:00] LABS: Glucose,Whole Blood 135 mg/dL (70-110)
[2022-02-10] MEDS: methylPREDNISolone SOD SUCCI 125 MG/2 ML VIAL IV SCH ×4 (04:55→22:02)
[2022-02-10] MEDS: IPRATROPIUM-ALBUTEROL 3 ML NEB INHALATION SCH ×5 (06:18→20:05)
[2022-02-10] MEDS: SYMBICORT 160-4.5 MCG INHALER INHALATION SCH (06:19)
[2022-02-10 06:27] LABS: Basophils % (A) 0 %; Eosinophils % (A) 0 %; HCT 45.3 % (34.0-46.0); Lymphocytes # (A) 0.6 k/uL (1.0-4.8); Lymphocytes % (A) 3 %; MCH 29.5 pg (25.0-35.0); MCV 95.2 fL (80.0-100.0); Mean Platelet Volume 7.8; Monocytes # (A) 0.5 k/uL (0-1.0); Monocytes % (A) 3 %; Neutrophils # (A) 16.2 k/uL (1.3-7.7); Neutrophils % (A) 92 %; Platelet Count 244 k/uL (150-450); RBC 4.76 m/uL (3.80-5.40); RDW 13.2 % (11.5-15.5); WBC 17.6 k/uL (3.8-10.6)
[2022-02-10 07:14] LABS: Glucose,Whole Blood 152 mg/dL (70-110)
[2022-02-10] MEDS: ENOXAPARIN 40 MG/0.4 ML SYRINGE SQ SCH (07:52)
[2022-02-10] MEDS: ACETAMINOPHEN TAB 325 MG TAB PO PRN (07:52)
[2022-02-10] MEDS: NYSTATIN 100,000 UNIT/ML SUSP 500,000 UNIT/5 ML CUP PO SCH ×4 (07:52→20:54)
[2022-02-10] MEDS: NICOTINE 21MG/24HR PATCH TRANSDERM SCH (07:52)
[2022-02-10] MEDS: FAMOTIDINE 20 MG TAB PO SCH (07:52)
[2022-02-10] MEDS ORDERED: DEXTROSE 50% SYRINGE 50 ML IVP PRN ×2 (07:55)
[2022-02-10] MEDS: FORMOTEROL FUMARATE 20 MCG/2 ML NEBU INHALATION SCH ×2 (08:47→20:14)
[2022-02-10] MEDS: BUDESONIDE 1 MG/2 ML NEBU INHALATION SCH ×2 (08:48→20:05)
[2022-02-10] MEDS: IPRATROPIUM-ALBUTEROL 3 ML NEB INHALATION PRN (08:49)
--- NOTE | 2022-02-10 11:23 | P.PN ---
Subjective Progress Note Date: 02/10/22 Principal diagnosis: Asthma exacerbation. This is a very pleasant 52-year-old female patient with a known history of chronic and ongoing tobacco dependence, chronic obstructive pulmonary disease with an FEV1 value 53% of predicted. She follows with Dr. Olmstead in our office. She was recently seen there and was treated for a COPD exacerbation however her symptoms continued to progress and she presented here to the emergency room early this morning. Chest x-ray reveals no acute pulmonary process. Mild pulmonary fibrosis. No change compared to previous in October 2021. White count 11.8. Hemoglobin 15.6. Lymphocytes 0.6. D-dimer 0.27. Sodium 141. Potassium 4.0. BUN 18. Creatinine 0.54. ProBNP 153. Troponin negative 1. Barnard virus by PCR not detected. She is seen today in consultation in the emergency department. Currently sitting up on the stretcher. Awake and alert in no acute distress. she was hypoxemic at 80% on room air. 94% on 2 L. Afebrile. Hemody namically stable. She's been initiated on IV Solu-Medrol, DuoNeb inhalations, Symbicort. Pro calcitonin pending. Progress note dated 02/09/2022. 52-year-old female seen in room 629. I see this patient in my office for her underlying COPD/asthma. The patient was recently seen in the office, and was doing much better. More recently, the patient states that she started developing shortness of breath, cough, wheezing, and chest tightness, and came into the emergency room to be evaluated. After evaluation, she was admitted. Currently, she is getting a breathing treatment. She is on some nasal O2 at a couple of liters. She is currently on all appropriate medications. She was seen by a nurse practitioner and my partner yesterday. White count 20.1, hemoglobin 14.2, hematocrit 43.5, and platelet count 270,000. Sodium 143, potassium 4.3, chlorides 107, CO2 25, BUN 14.6, and creatinine 0.6. Pro- calcitonin level was 0.03. Testing for coronavirus was negative. Chest x-ray was negative. Progress note dated 02/10/2022. 52-year-old female again seen in room 629. The patient is doing only a bit better today. She remains on appropriate medications. She did have a significant coughing jag she tells me this morning. Currently, he is resting comfortably in the room. She's on a couple of liters of oxygen. She's not receiving any IV fluids. Laboratory data today includes a white count of 17.6, hemoglobin 14, hematocrit 45.3, and a platelet count of 244,000. Objective - Vital Signs Vital signs: Vital Signs Temp 98.2 F 02/10/22 07:00 Pulse 86 02/10/22 09:02 Resp 18 02/10/22 07:41 BP 115/70 02/10/22 07:00 Pulse Ox 97 02/10/22 07:00 FiO2 Intake & Output 02/09/22 02/10/22 02/10/22 18:59 06:59 18:59 Intake Total 860 240 Balance 860 240 Intake: Oral 860 240 Other: Voiding Method Toilet # Voids 2 1 - Exam No acute distress, oriented 3. The patient remains on O2 at 2 L. No audible wheezing, or use of accessory muscles. HEENT examination is grossly unremarkable. Neck supple. Full range of motion. No adenopathy thyromegaly or neck vein distention. Cardiovascular examination reveals regular rhythm rate. S1-S2 normal. No S3 or S4. No discernible murmur noted. Heart rate 86 bpm. Heart sounds are distant. Lungs reveal scattered expiratory wheezes and rhonchi. Breath sounds are coarse. No crackles. Breath sounds are equal bilaterally. There is prolongation on forced maneuver. Abdomen soft bowel sounds are heard. No masses or tenderness. Extremities are intact. No cyanosis clubbing or edema. Skin is without rash or lesion. Neurologic examination is brief but nonfocal. - Labs CBC & Chem 7: 02/10/22 06:13 02/09/22 04:48 Labs: Abnormal Lab Results - Last 24 Hours (Table) 02/09/22 02/09/22 02/09/22 Range/Units 12:37 17:22 20:58 WBC (3.8-10.6) k/uL Neutrophils # (1.3-7.7) k/uL Lymphocytes # (1.0-4.8) k/uL POC Glucose (mg/dL) 124 H 134 H 135 H (70-110) mg/dL 02/10/22 02/10/22 Range/Units 06:13 07:12 WBC 17.6 H (3.8-10.6) k/uL Neutrophils # 16.2 H (1.3-7.7) k/uL Lymphocytes # 0.6 L (1.0-4.8) k/uL POC Glucose (mg/dL) 152 H (70-110) mg/dL Assessment and Plan Assessment: Acute hypoxemic respiratory failure secondary to COPD/asthma exacerbation. COPD, moderately severe, with an FEV1 that is 53% of predicted. Chronic and ongoing tobacco use. Hyperlipidemia. GERD. Anxiety/depression. History of obstructive sleep apnea syndrome, not requiring treatment. Obesity, status post gastric sleeve procedure. 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 Plan: Plan dated 02/09/2022. The patient is evaluated at bedside. She is not ready for discharge as yet. She remains on all appropriate medications. We will continue to follow make recommendations along the way. The patient's pro-calcitonin level is extremely low. Probably does not need any antibiotics at this time. We will continue to follow and make recommendations along the way. She'll see me in the office after discharge. Plan dated 02/10/2022. Today we have a long talk about the importance of smoking cessation. She keeps on sabotaging her health by continuing to smoke when she is not in the hospital. The patient remains on appropriate medications. Symbicort is discontinued in favor of budesonide and formoterol. She remains on Solu-Medrol. She also remains on albuterol sulfate and ipratropium bromide. Additional recommendations and suggestions are forthcoming. Prognosis is guarded. Pro- calcitonin level is very low at 0.03. Antibiotics will be discontinued. Time with Patient: Less than 30
[2022-02-10 11:37] LABS: Glucose,Whole Blood 184 mg/dL (70-110)
[2022-02-10] MEDS: INSULIN ASPART (NovoLOG) 100 UNIT/ML VIAL SQ SCH ×3 (12:42→20:54)
--- NOTE | 2022-02-10 14:05 | P.PN ---
Subjective Progress Note Date: 02/10/22 Principal diagnosis: SOB Hospital Course: 52-year-old female with history of asthma and COPD, nicotine dependence presenting with acute shortness of breath and cough. Patient admitted for acute COPD exacerbation. Currently on supplemental oxygen, bronchodilators and steroids. Pulmonary consulted - changed bronchodilators. Subjective: Patient seen and examined at bedside. No acute events overnight. Patient claims that her breathing is slowly improving. She is still having cough. She denies any chest pain, abdominal pain, urinary or bowel complaints. Unable to wean off of O2 at the moment. Patient tried ambulating yesterday without O2 and it dropped below 88%. Pertinent positives and negatives as discussed above, a complete review of systems was performed and all other systems are negative. Vitals Signs Reviewed. General: nontoxic, no distress, appears at stated age Derm: warm, dry Head: atraumatic, normocephalic, symmetric Eyes: EOMI, no lid lag, anicteric sclera Mouth: no lip lesion, mucus membranes moist Cardiovascular: S1S2 reg, no murmur Lungs: Scattered wheezes, no accessory muscle use, 2 L nasal cannula Abdominal: soft, nontender to palpation, no guarding, no appreciable organomegaly Ext: no gross muscle atrophy, no edema, no contractures Neuro: CN II-XI grossly intact, no focal neuro deficits Psych: Alert, oriented, appropriate affect Assessment and Plan: Acute COPD exacerbation Acute hypoxic respiratory failure -Supplemental oxygen, continue to wean -On steroids and bronchodilators -Pulmonary consultation -procalcitonin low, discontinue azithromycin Leukocytosis - downtrending -Likely secondary to steroids -No acute signs of infection Hyperlipidemia -Continue home medications Nicotine dependence -Counseled regarding smoking cessation GERD - home medication F: Oral E: Replete as needed N: Heart healthy A: As tolerated DVT ppx: Lovenox Code status: Full Code Anticipated discharge place: Home Anticipated discharge time: 1 to 2 days Objective - Vital Signs Vital signs: Vital Signs Temp 98.2 F 02/10/22 11:33 Pulse 86 02/10/22 12:16 Resp 17 02/10/22 11:33 BP 127/66 02/10/22 11:33 Pulse Ox 95 02/10/22 11:41 FiO2 Intake & Output 02/09/22 02/10/22 02/10/22 18:59 06:59 18:59 Intake Total 860 240 Balance 860 240 Intake: Oral 860 240 Other: Voiding Method Toilet # Voids 2 1 - Labs CBC & Chem 7: 02/10/22 06:13 02/09/22 04:48 Labs: Abnormal Lab Results - Last 24 Hours (Table) 02/09/22 02/09/22 02/10/22 Range/Units 17:22 20:58 06:13 WBC 17.6 H (3.8-10.6) k/uL Neutrophils # 16.2 H (1.3-7.7) k/uL Lymphocytes # 0.6 L (1.0-4.8) k/uL POC Glucose (mg/dL) 134 H 135 H (70-110) mg/dL 02/10/22 02/10/22 Range/Units 07:12 11:35 WBC (3.8-10.6) k/uL Neutrophils # (1.3-7.7) k/uL Lymphocytes # (1.0-4.8) k/uL POC Glucose (mg/dL) 152 H 184 H (70-110) mg/dL
[2022-02-10 17:37] LABS: Glucose,Whole Blood 168 mg/dL (70-110)
[2022-02-10 20:49] LABS: Glucose,Whole Blood 129 mg/dL (70-110)
[2022-02-10] MEDS: ATORVASTATIN 20 MG TAB PO SCH (20:55)
[2022-02-10] MEDS: MONTELUKAST 10 MG TAB PO SCH (20:55)
[2022-02-10] MEDS: ALPRAZolam 0.5 MG TAB PO PRN (20:55)
[2022-02-11] MEDS: methylPREDNISolone SOD SUCCI 125 MG/2 ML VIAL IV SCH ×4 (04:48→21:12)
[2022-02-11] MEDS: BUDESONIDE 1 MG/2 ML NEBU INHALATION SCH ×2 (07:11→19:44)
[2022-02-11] MEDS: IPRATROPIUM-ALBUTEROL 3 ML NEB INHALATION SCH ×4 (07:11→19:44)
[2022-02-11] MEDS: FORMOTEROL FUMARATE 20 MCG/2 ML NEBU INHALATION SCH ×2 (07:11→19:44)
[2022-02-11 07:27] LABS: Glucose,Whole Blood 125 mg/dL (70-110)
--- NOTE | 2022-02-11 07:48 | P.PN ---
Subjective Progress Note Date: 02/11/22 Principal diagnosis: Asthma exacerbation. This is a very pleasant 52-year-old female patient with a known history of chronic and ongoing tobacco dependence, chronic obstructive pulmonary disease with an FEV1 value 53% of predicted. She follows with Dr. Olmstead in our office. She was recently seen there and was treated for a COPD exacerbation however her symptoms continued to progress and she presented here to the emergency room early this morning. Chest x-ray reveals no acute pulmonary process. Mild pulmonary fibrosis. No change compared to previous in October 2021. White count 11.8. Hemoglobin 15.6. Lymphocytes 0.6. D-dimer 0.27. Sodium 141. Potassium 4.0. BUN 18. Creatinine 0.54. ProBNP 153. Troponin negative 1. Barnard virus by PCR not detected. She is seen today in consultation in the emergency department. Currently sitting up on the stretcher. Awake and alert in no acute distress. she was hypoxemic at 80% on room air. 94% on 2 L. Afebrile. Hemody namically stable. She's been initiated on IV Solu-Medrol, DuoNeb inhalations, Symbicort. Pro calcitonin pending. Progress note dated 02/09/2022. 52-year-old female seen in room 629. I see this patient in my office for her underlying COPD/asthma. The patient was recently seen in the office, and was doing much better. More recently, the patient states that she started developing shortness of breath, cough, wheezing, and chest tightness, and came into the emergency room to be evaluated. After evaluation, she was admitted. Currently, she is getting a breathing treatment. She is on some nasal O2 at a couple of liters. She is currently on all appropriate medications. She was seen by a nurse practitioner and my partner yesterday. White count 20.1, hemoglobin 14.2, hematocrit 43.5, and platelet count 270,000. Sodium 143, potassium 4.3, chlorides 107, CO2 25, BUN 14.6, and creatinine 0.6. Pro- calcitonin level was 0.03. Testing for coronavirus was negative. Chest x-ray was negative. Progress note dated 02/10/2022. 52-year-old female again seen in room 629. The patient is doing only a bit better today. She remains on appropriate medications. She did have a significant coughing jag she tells me this morning. Currently, he is resting comfortably in the room. She's on a couple of liters of oxygen. She's not receiving any IV fluids. Laboratory data today includes a white count of 17.6, hemoglobin 14, hematocrit 45.3, and a platelet count of 244,000. Progress note dated 02/11/2022. 52-year-old female admitted with a diagnosis of COPD exacerbation. Despite being on all the appropriate medications, the patient currently not improving. Today we talk about bronchoscopy and BAL. She is agreeable. We will plan on doing that tomorrow. We'll get a consent on the chart. We'll make her nothing by mouth after midnight. Currently, she is on albuterol sulfate, ipratropium bromide, 1 mg Pulmicort, mixed with formoterol, 20 g, Solu-Medrol, and a nicotine patch. Her complaints include primarily shortness of breath, cough, wheezing, chest tightness. No new labs today. Objective - Vital Signs Vital signs: Vital Signs Temp 97.8 F 02/11/22 07:12 Pulse 80 02/11/22 07:29 Resp 14 02/11/22 07:12 BP 142/80 02/11/22 07:12 Pulse Ox 94 L 02/11/22 07:12 FiO2 Intake & Output 02/10/22 02/11/22 02/11/22 18:59 06:59 18:59 Intake Total 462 Balance 462 Intake: Oral 462 Other: Voiding Method Toilet Toilet # Voids 3 1 # Bowel Movements 1 1 - Exam No acute distress, oriented 3. The patient remains on O2 at 2 L. No audible wheezing, or use of accessory muscles. HEENT examination is grossly unremarkable. Neck supple. Full range of motion. No adenopathy thyromegaly or neck vein distention. Cardiovascular examination reveals regular rhythm rate. S1-S2 normal. No S3 or S4. No discernible murmur noted. Heart rate 80 bpm. Heart sounds are distant. Lungs reveal scattered expiratory wheezes and rhonchi. Breath sounds are coarse. No crackles. Breath sounds are equal bilaterally. There is prolongation on forced maneuver. Saturations are 94%. Abdomen soft bowel sounds are heard. No masses or tenderness. Extremities are intact. No cyanosis clubbing or edema. Skin is without rash or lesion. Neurologic examination is brief but nonfocal. - Labs CBC & Chem 7: 02/10/22 06:13 02/09/22 04:48 Labs: Abnormal Lab Results - Last 24 Hours (Table) 02/10/22 02/10/22 02/10/22 Range/Units 11:35 17:36 20:47 POC Glucose (mg/dL) 184 H 168 H 129 H (70-110) mg/dL 02/11/22 Range/Units 07:25 POC Glucose (mg/dL) 125 H (70-110) mg/dL Assessment and Plan Assessment: Acute hypoxemic respiratory failure secondary to COPD/asthma exacerbation. COPD, moderately severe, with an FEV1 that is 53% of predicted. Chronic and ongoing tobacco use. Hyperlipidemia. GERD. Anxiety/depression. History of obstructive sleep apnea syndrome, not requiring treatment. Obesity, status post gastric sleeve procedure. 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 Plan: Plan dated 02/09/2022. The patient is evaluated at bedside. She is not ready for discharge as yet. She remains on all appropriate medications. We will continue to follow make recommendations along the way. The patient's pro-calcitonin level is extremely low. Probably does not need any antibiotics at this time. We will continue to follow and make recommendations along the way. She'll see me in the office after discharge. Plan dated 02/10/2022. Today we have a long talk about the importance of smoking cessation. She keeps on sabotaging her health by continuing to smoke when she is not in the hospital. The patient remains on appropriate medications. Symbicort is discontinued in favor of budesonide and formoterol. She remains on Solu-Medrol. She also remains on albuterol sulfate and ipratropium bromide. Additional recommendations and suggestions are forthcoming. Prognosis is guarded. Pro- calcitonin level is very low at 0.03. Antibiotics will be discontinued. Plan dated 02/11/2022. Today we talk about bronchoscopy with the patient. I believe she would benefit from it. She's really not improving on standard insignificant therapy including corticosteroids, bronchodilators, etc. The patient will be nothing by mouth after midnight. We will get a consent on the chart. Today we explained seizure to the patient. We will do it airway examination, BAL, therapeutic lavage. We will continue to follow the patient. Prognosis is guarded. Time with Patient: Less than 30
[2022-02-11] MEDS: NYSTATIN 100,000 UNIT/ML SUSP 500,000 UNIT/5 ML CUP PO SCH ×4 (09:02→21:12)
[2022-02-11] MEDS: FAMOTIDINE 20 MG TAB PO SCH (09:02)
[2022-02-11] MEDS: NICOTINE 21MG/24HR PATCH TRANSDERM SCH (09:02)
[2022-02-11] MEDS: ENOXAPARIN 40 MG/0.4 ML SYRINGE SQ SCH (09:03)
[2022-02-11] MEDS: INSULIN ASPART (NovoLOG) 100 UNIT/ML VIAL SQ SCH ×4 (09:11→21:13)
[2022-02-11] MEDS: ALPRAZolam 0.5 MG TAB PO PRN ×2 (09:44→21:11)
[2022-02-11 12:21] LABS: Glucose,Whole Blood 141 mg/dL (70-110)
--- NOTE | 2022-02-11 12:25 | P.PN ---
Subjective Progress Note Date: 02/11/22 Principal diagnosis: SOB Hospital Course: 52-year-old female with history of asthma and COPD, nicotine dependence presenting with acute shortness of breath and cough. Patient admitted for acute COPD exacerbation. Currently on supplemental oxygen, bronchodilators and steroids. Pulmonary consulted - changed bronchodilators. Patient no longer improving standard therapy, planning on getting a bronchoscopy tomorrow. Subjective: Patient seen and examined at bedside. No acute events overnight. Not much improvement in breathing compared to yesterday. She is still having cough. She denies any chest pain, abdominal pain, urinary or bowel complaints. Pertinent positives and negatives as discussed above, a complete review of systems was performed and all other systems are negative. Vitals Signs Reviewed. General: nontoxic, no distress, appears at stated age Derm: warm, dry Head: atraumatic, normocephalic, symmetric Eyes: EOMI, no lid lag, anicteric sclera Mouth: no lip lesion, mucus membranes moist Cardiovascular: S1S2 reg, no murmur Lungs: Scattered wheezes, no accessory muscle use, 2 L nasal cannula Abdominal: soft, nontender to palpation, no guarding, no appreciable organomegaly Ext: no gross muscle atrophy, no edema, no contractures Neuro: CN II-XI grossly intact, no focal neuro deficits Psych: Alert, oriented, appropriate affect Assessment and Plan: Acute COPD exacerbation Acute hypoxic respiratory failure -Supplemental oxygen, continue to wean -On steroids and bronchodilators -Pulmonary consultation -procalcitonin low, discontinue azithromycin -Bronchoscopy tomorrow Leukocytosis - downtrending -Likely secondary to steroids -No acute signs of infection Hyperlipidemia -Continue home medications Nicotine dependence -Counseled regarding smoking cessation GERD - home medication F: Oral E: Replete as needed N: Heart healthy, NPO at midnight A: As tolerated DVT ppx: Lovenox Code status: Full Code Anticipated discharge place: Home Anticipated discharge time: 1 to 2 days Objective - Vital Signs Vital signs: Vital Signs Temp 98.3 F 02/11/22 11:48 Pulse 74 02/11/22 11:48 Resp 19 02/11/22 11:48 BP 127/69 02/11/22 11:48 Pulse Ox 92 L 02/11/22 11:48 FiO2 Intake & Output 02/10/22 02/11/22 02/11/22 18:59 06:59 18:59 Intake Total 462 Balance 462 Intake: Oral 462 Other: Voiding Method Toilet Toilet # Voids 3 1 # Bowel Movements 1 1 - Labs CBC & Chem 7: 02/10/22 06:13 02/09/22 04:48 Labs: Abnormal Lab Results - Last 24 Hours (Table) 02/10/22 02/10/22 02/11/22 Range/Units 17:36 20:47 07:25 POC Glucose (mg/dL) 168 H 129 H 125 H (70-110) mg/dL 02/11/22 Range/Units 12:20 POC Glucose (mg/dL) 141 H (70-110) mg/dL
[2022-02-11 17:11] LABS: Glucose,Whole Blood 141 mg/dL (70-110)
[2022-02-11 20:47] LABS: Glucose,Whole Blood 190 mg/dL (70-110)
[2022-02-11] MEDS: MONTELUKAST 10 MG TAB PO SCH (21:11)
[2022-02-11] MEDS: ATORVASTATIN 20 MG TAB PO SCH (21:11)
[2022-02-11] MEDS: ACETAMINOPHEN TAB 325 MG TAB PO PRN (21:11)
[2022-02-12] MEDS: methylPREDNISolone SOD SUCCI 125 MG/2 ML VIAL IV SCH ×4 (05:52→21:00)
[2022-02-12] MEDS: FORMOTEROL FUMARATE 20 MCG/2 ML NEBU INHALATION SCH ×2 (07:53→20:16)
[2022-02-12] MEDS: IPRATROPIUM-ALBUTEROL 3 ML NEB INHALATION SCH ×4 (07:53→20:16)
[2022-02-12] MEDS: BUDESONIDE 1 MG/2 ML NEBU INHALATION SCH ×2 (07:53→20:16)
[2022-02-12 07:57] LABS: Glucose,Whole Blood 134 mg/dL (70-110)
[2022-02-12] MEDS: INSULIN ASPART (NovoLOG) 100 UNIT/ML VIAL SQ SCH ×4 (08:22→21:07)
[2022-02-12] MEDS: ALPRAZolam 0.5 MG TAB PO PRN ×2 (09:00→21:00)
[2022-02-12] MEDS: ENOXAPARIN 40 MG/0.4 ML SYRINGE SQ SCH (09:01)
[2022-02-12] MEDS: FAMOTIDINE 20 MG TAB PO SCH (09:01)
[2022-02-12] MEDS: NYSTATIN 100,000 UNIT/ML SUSP 500,000 UNIT/5 ML CUP PO SCH ×4 (09:01→21:00)
[2022-02-12] MEDS: NICOTINE 21MG/24HR PATCH TRANSDERM SCH (09:01)
--- NOTE | 2022-02-12 10:52 | P.PN ---
Subjective Progress Note Date: 02/12/22 Principal diagnosis: Asthma exacerbation. This is a very pleasant 52-year-old female patient with a known history of chronic and ongoing tobacco dependence, chronic obstructive pulmonary disease with an FEV1 value 53% of predicted. She follows with Dr. Olmstead in our office. She was recently seen there and was treated for a COPD exacerbation however her symptoms continued to progress and she presented here to the emergency room early this morning. Chest x-ray reveals no acute pulmonary process. Mild pulmonary fibrosis. No change compared to previous in October 2021. White count 11.8. Hemoglobin 15.6. Lymphocytes 0.6. D-dimer 0.27. Sodium 141. Potassium 4.0. BUN 18. Creatinine 0.54. ProBNP 153. Troponin negative 1. Barnard virus by PCR not detected. She is seen today in consultation in the emergency department. Currently sitting up on the stretcher. Awake and alert in no acute distress. she was hypoxemic at 80% on room air. 94% on 2 L. Afebrile. Hemody namically stable. She's been initiated on IV Solu-Medrol, DuoNeb inhalations, Symbicort. Pro calcitonin pending. Progress note dated 02/09/2022. 52-year-old female seen in room 629. I see this patient in my office for her underlying COPD/asthma. The patient was recently seen in the office, and was doing much better. More recently, the patient states that she started developing shortness of breath, cough, wheezing, and chest tightness, and came into the emergency room to be evaluated. After evaluation, she was admitted. Currently, she is getting a breathing treatment. She is on some nasal O2 at a couple of liters. She is currently on all appropriate medications. She was seen by a nurse practitioner and my partner yesterday. White count 20.1, hemoglobin 14.2, hematocrit 43.5, and platelet count 270,000. Sodium 143, potassium 4.3, chlorides 107, CO2 25, BUN 14.6, and creatinine 0.6. Pro- calcitonin level was 0.03. Testing for coronavirus was negative. Chest x-ray was negative. Progress note dated 02/10/2022. 52-year-old female again seen in room 629. The patient is doing only a bit better today. She remains on appropriate medications. She did have a significant coughing jag she tells me this morning. Currently, he is resting comfortably in the room. She's on a couple of liters of oxygen. She's not receiving any IV fluids. Laboratory data today includes a white count of 17.6, hemoglobin 14, hematocrit 45.3, and a platelet count of 244,000. Progress note dated 02/11/2022. 52-year-old female admitted with a diagnosis of COPD exacerbation. Despite being on all the appropriate medications, the patient currently not improving. Today we talk about bronchoscopy and BAL. She is agreeable. We will plan on doing that tomorrow. We'll get a consent on the chart. We'll make her nothing by mouth after midnight. Currently, she is on albuterol sulfate, ipratropium bromide, 1 mg Pulmicort, mixed with formoterol, 20 g, Solu-Medrol, and a nicotine patch. Her complaints include primarily shortness of breath, cough, wheezing, chest tightness. No new labs today. Progress note dated 02/12/2022. 52-year-old female again seen in room 629. The patient was admitted with a COPD exacerbation. She's been seen since February 08. Unfortunately, the patient's not really improving despite aggressive therapy including bronchodilators and corticosteroids. For that reason, the patient will undergo bronchoscopy, airway examination, and therapeutic lavage and BAL today. Hopefully, the patient can be discharged home tomorrow. She remains on 2 L of oxygen. She is not receiving any IV fluids. No new laboratory data today. Objective - Vital Signs Vital signs: Vital Signs Temp 98.2 F 02/12/22 07:00 Pulse 68 02/12/22 08:02 Resp 17 02/12/22 07:00 BP 157/70 02/12/22 07:00 Pulse Ox 97 02/12/22 07:55 FiO2 Intake & Output 02/11/22 02/12/22 02/12/22 18:59 06:59 18:59 Intake Total 660 Balance 660 Intake: Oral 660 Other: Voiding Method Toilet # Voids 2 1 - Exam No acute distress, oriented 3. The patient remains on O2 at 2 L. No audible wheezing, or use of accessory muscles. HEENT examination is grossly unremarkable. Neck supple. Full range of motion. No adenopathy thyromegaly or neck vein distention. Cardiovascular examination reveals regular rhythm rate. S1-S2 normal. No S3 or S4. No discernible murmur noted. Heart rate 68 bpm. Heart sounds are distant. Lungs reveal scattered expiratory wheezes and rhonchi. Breath sounds are coarse. No crackles. Breath sounds are equal bilaterally. There is prolongation on forced maneuver. Saturations are 95 %. Abdomen soft bowel sounds are heard. No masses or tenderness. Extremities are intact. No cyanosis clubbing or edema. Skin is without rash or lesion. Neurologic examination is brief but nonfocal. - Labs CBC & Chem 7: 02/10/22 06:13 02/09/22 04:48 Labs: Abnormal Lab Results - Last 24 Hours (Table) 02/11/22 02/11/22 02/11/22 Range/Units 12:20 17:10 20:46 POC Glucose (mg/dL) 141 H 141 H 190 H (70-110) mg/dL 02/12/22 Range/Units 07:56 POC Glucose (mg/dL) 134 H (70-110) mg/dL Assessment and Plan Assessment: Acute hypoxemic respiratory failure secondary to COPD/asthma exacerbation. COPD, moderately severe, with an FEV1 that is 53% of predicted. Chronic and ongoing tobacco use. Hyperlipidemia. GERD. Anxiety/depression. History of obstructive sleep apnea syndrome, not requiring treatment. Obesity, status post gastric sleeve procedure. 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 Plan: Plan dated 02/09/2022. The patient is evaluated at bedside. She is not ready for discharge as yet. She remains on all appropriate medications. We will continue to follow make recommendations along the way. The patient's pro-calcitonin level is extremely low. Probably does not need any antibiotics at this time. We will continue to follow and make recommendations along the way. She'll see me in the office after discharge. Plan dated 02/10/2022. Today we have a long talk about the importance of smoking cessation. She keeps on sabotaging her health by continuing to smoke when she is not in the hospital. The patient remains on appropriate medications. Symbicort is discontinued in favor of budesonide and formoterol. She remains on Solu-Medrol. She also remains on albuterol sulfate and ipratropium bromide. Additional recommendations and suggestions are forthcoming. Prognosis is guarded. Pro- calcitonin level is very low at 0.03. Antibiotics will be discontinued. Plan dated 02/11/2022. Today we talk about bronchoscopy with the patient. I believe she would benefit from it. She's really not improving on standard insignificant therapy including corticosteroids, bronchodilators, etc. The patient will be nothing by mouth after midnight. We will get a consent on the chart. Today we explained seizure to the patient. We will do it airway examination, BAL, therapeutic lavage. We will continue to follow the patient. Prognosis is guarded. Plan dated 02/12/2022. The patient is going to undergo bronchoscopy, airway examination, therapeutic lavage, and BAL today. I'm hoping that that'll get her over the hump so to speak, so that she can be discharged tomorrow. Information is passed onto the hospital service. Medications are reviewed. Labs and x-rays are reviewed. The patient's overall prognosis remains guarded. We will continue to follow. The patient has been counseled about the importance of smoking cessation. Time with Patient: Less than 30
[2022-02-12 12:28] LABS: Glucose,Whole Blood 144 mg/dL (70-110)
--- NOTE | 2022-02-12 13:55 | P.PN ---
Subjective Progress Note Date: 02/12/22 Principal diagnosis: SOB Hospital Course: 52-year-old female with history of asthma and COPD, nicotine dependence presenting with acute shortness of breath and cough. Patient admitted for acute COPD exacerbation. Currently on supplemental oxygen, bronchodilators and steroids. Pulmonary consulted - changed bronchodilators. Patient no longer improving with standard aggressive therapy, planning on getting a bronchoscopy today Subjective: Patient seen and examined at bedside. No acute events overnight. Not much improvement in breathing compared to yesterday. She is still having cough. She denies any chest pain, abdominal pain, urinary or bowel complaints. Pertinent positives and negatives as discussed above, a complete review of systems was performed and all other systems are negative. Vitals Signs Reviewed. General: nontoxic, no distress, appears at stated age Derm: warm, dry Head: atraumatic, normocephalic, symmetric Eyes: EOMI, no lid lag, anicteric sclera Mouth: no lip lesion, mucus membranes moist Cardiovascular: S1S2 reg, no murmur Lungs: Scattered wheezes, no accessory muscle use, 2 L nasal cannula Abdominal: soft, nontender to palpation, no guarding, no appreciable organomegaly Ext: no gross muscle atrophy, no edema, no contractures Neuro: CN II-XI grossly intact, no focal neuro deficits Psych: Alert, oriented, appropriate affect Assessment and Plan: Acute COPD exacerbation Acute hypoxic respiratory failure -Supplemental oxygen, continue to wean -On steroids and bronchodilators -Pulmonary consultation -procalcitonin low, no abx -Bronchoscopy pending today Leukocytosis - downtrending -Likely secondary to steroids -No acute signs of infection Hyperlipidemia -Continue home medications Nicotine dependence -Counseled regarding smoking cessation GERD - home medication F: Oral when possible E: Replete as needed N: NPO A: As tolerated DVT ppx: Lovenox Code status: Full Code Anticipated discharge place: Home Anticipated discharge time: tomorrow Objective - Vital Signs Vital signs: Vital Signs Temp 98.2 F 02/12/22 07:00 Pulse 68 02/12/22 11:49 Resp 17 02/12/22 08:00 BP 157/70 02/12/22 07:00 Pulse Ox 97 02/12/22 07:55 FiO2 Intake & Output 02/11/22 02/12/22 02/12/22 18:59 06:59 18:59 Intake Total 660 Balance 660 Intake: Oral 660 Other: Voiding Method Toilet Toilet # Voids 2 1 - Labs CBC & Chem 7: 02/10/22 06:13 02/09/22 04:48 Labs: Abnormal Lab Results - Last 24 Hours (Table) 02/11/22 02/11/22 02/12/22 Range/Units 17:10 20:46 07:56 POC Glucose (mg/dL) 141 H 190 H 134 H (70-110) mg/dL 02/12/22 Range/Units 12:26 POC Glucose (mg/dL) 144 H (70-110) mg/dL
[2022-02-12] MEDS ORDERED: KETAMINE 10 MG/ML 20 ML VIAL ONE (14:27)
[2022-02-12] MEDS ORDERED: PROPOFOL 10 MG/ML 20 ML VIAL IV ONE (14:27)
[2022-02-12] MEDS ORDERED: MIDAZOLAM 2 MG/2 ML VIAL ONE (14:27)
[2022-02-12] MEDS ORDERED: LIDOCAINE 2% INJ 20 MG/ML (2 ML VIAL) ONE (14:27)
[2022-02-12] MEDS ORDERED: LACTATED RINGERS 1,000 ML IV ONE ×2 (14:31)
[2022-02-12] MEDS ORDERED: LIDOCAINE 2% INJ 20 MG/ML INTRATRACH ONE (14:41)
[2022-02-12 16:31] LABS: Glucose,Whole Blood 231 mg/dL (70-110)
[2022-02-12] MEDS: ATORVASTATIN 20 MG TAB PO SCH (21:00)
[2022-02-12] MEDS: MONTELUKAST 10 MG TAB PO SCH (21:00)
[2022-02-12 21:07] LABS: Glucose,Whole Blood 106 mg/dL (70-110)
--- NOTE | 2022-02-12 21:51 | PCN ---
PROCEDURE NOTE PULMONARY/CRITICAL CARE PROCEDURE NOTE: PROCEDURES PERFORMED: Bronchoscopy, airway examination, therapeutic lavage, BAL, right middle lobe. PREOPERATIVE DIAGNOSES: Chronic obstructive pulmonary disease exacerbation, infection, retained secretions. POSTOPERATIVE DIAGNOSES: Chronic obstructive pulmonary disease exacerbation, infection, retained secretions. There was informed consent and universal timeout. The patient's procedure took place in [facility] room #1. ANESTHESIA: General anesthetic. DESCRIPTION OF PROCEDURE: After the patient was adequately sedated and being fully monitored, the bronchoscope was inserted through the right nostril. It passed through the right nasopharynx into the oropharynx. The hypopharynx was identified and topicalized. The hypopharyngeal structures, including the anterior commissure, true cords, false cords, piriform sinuses, right and left arytenoids, and the vallecula, were all evaluated and found to be normal. The arytenoids were a bit prominent, but not abnormal in any other sort of way. The glottic opening was then topicalized. The bronchoscope was pushed through the glottic opening into the trachea. There were thick secretions noted throughout the trachea. There was some degree of tracheomalacia. The trachea was anesthetized with lidocaine. Secretions were suctioned with some difficulty. The right and left mainstem were topicalized. Next, there was a thorough evaluation of the right upper lobe and its 3 segments, right middle lobe and its 2 segments, right lower lobe and its 5 segments, left upper lobe proper and its 2 segments, lingula and its 2 segments, and left lower lobe and its 4 segments. There were similar findings throughout including diffuse and quite severe erythema and hyperemia of the airways mucosa. There was mucosal friability and vascular engorgement. There was no dominant mass or tumor. The secretions were quite thick and viscid. They were difficult to suction, but saline was used to aid in that process. Next, the bronchoscope was wedged into the right middle lobe. We did a formal BAL with 30 mL of fluid recovered. It will be sent to the laboratory for analysis. The patient tolerated the procedure well. The bronchoscope was withdrawn. The patient will be recovered and taken back to her room. There was no immediate complication. MMODL / IJN: [id number] /
[2022-02-12 22:53] LABS: Appearance,BF Hazy
[2022-02-13] MEDS: methylPREDNISolone SOD SUCCI 125 MG/2 ML VIAL IV SCH ×2 (05:17→12:40)
[2022-02-13 07:25] LABS: Glucose,Whole Blood 139 mg/dL (70-110)
[2022-02-13] MEDS: BUDESONIDE 1 MG/2 ML NEBU INHALATION SCH (07:37)
[2022-02-13] MEDS: FORMOTEROL FUMARATE 20 MCG/2 ML NEBU INHALATION SCH (07:37)
[2022-02-13] MEDS: IPRATROPIUM-ALBUTEROL 3 ML NEB INHALATION SCH ×2 (07:38→12:09)
[2022-02-13] MEDS: NYSTATIN 100,000 UNIT/ML SUSP 500,000 UNIT/5 ML CUP PO SCH ×2 (08:08→12:40)
[2022-02-13] MEDS: NICOTINE 21MG/24HR PATCH TRANSDERM SCH (08:08)
[2022-02-13] MEDS: INSULIN ASPART (NovoLOG) 100 UNIT/ML VIAL SQ SCH ×2 (08:09→12:34)
[2022-02-13] MEDS: FAMOTIDINE 20 MG TAB PO SCH (08:09)
[2022-02-13] MEDS: ENOXAPARIN 40 MG/0.4 ML SYRINGE SQ SCH (08:09)
[2022-02-13] MEDS: ALPRAZolam 0.5 MG TAB PO PRN (08:17)
[2022-02-13 08:41] VITALS: BP 171/75; RESP 20; TEMP 97.5
--- NOTE | 2022-02-13 11:02 | P.PN ---
Subjective Progress Note Date: 02/13/22 Principal diagnosis: Asthma exacerbation. This is a very pleasant 52-year-old female patient with a known history of chronic and ongoing tobacco dependence, chronic obstructive pulmonary disease with an FEV1 value 53% of predicted. She follows with Dr. Olmstead in our office. She was recently seen there and was treated for a COPD exacerbation however her symptoms continued to progress and she presented here to the emergency room early this morning. Chest x-ray reveals no acute pulmonary process. Mild pulmonary fibrosis. No change compared to previous in October 2021. White count 11.8. Hemoglobin 15.6. Lymphocytes 0.6. D-dimer 0.27. Sodium 141. Potassium 4.0. BUN 18. Creatinine 0.54. ProBNP 153. Troponin negative 1. Barnard virus by PCR not detected. She is seen today in consultation in the emergency department. Currently sitting up on the stretcher. Awake and alert in no acute distress. she was hypoxemic at 80% on room air. 94% on 2 L. Afebrile. Hemody namically stable. She's been initiated on IV Solu-Medrol, DuoNeb inhalations, Symbicort. Pro calcitonin pending. Progress note dated 02/09/2022. 52-year-old female seen in room 629. I see this patient in my office for her underlying COPD/asthma. The patient was recently seen in the office, and was doing much better. More recently, the patient states that she started developing shortness of breath, cough, wheezing, and chest tightness, and came into the emergency room to be evaluated. After evaluation, she was admitted. Currently, she is getting a breathing treatment. She is on some nasal O2 at a couple of liters. She is currently on all appropriate medications. She was seen by a nurse practitioner and my partner yesterday. White count 20.1, hemoglobin 14.2, hematocrit 43.5, and platelet count 270,000. Sodium 143, potassium 4.3, chlorides 107, CO2 25, BUN 14.6, and creatinine 0.6. Pro- calcitonin level was 0.03. Testing for coronavirus was negative. Chest x-ray was negative. Progress note dated 02/10/2022. 52-year-old female again seen in room 629. The patient is doing only a bit better today. She remains on appropriate medications. She did have a significant coughing jag she tells me this morning. Currently, he is resting comfortably in the room. She's on a couple of liters of oxygen. She's not receiving any IV fluids. Laboratory data today includes a white count of 17.6, hemoglobin 14, hematocrit 45.3, and a platelet count of 244,000. Progress note dated 02/11/2022. 52-year-old female admitted with a diagnosis of COPD exacerbation. Despite being on all the appropriate medications, the patient currently not improving. Today we talk about bronchoscopy and BAL. She is agreeable. We will plan on doing that tomorrow. We'll get a consent on the chart. We'll make her nothing by mouth after midnight. Currently, she is on albuterol sulfate, ipratropium bromide, 1 mg Pulmicort, mixed with formoterol, 20 g, Solu-Medrol, and a nicotine patch. Her complaints include primarily shortness of breath, cough, wheezing, chest tightness. No new labs today. Progress note dated 02/12/2022. 52-year-old female again seen in room 629. The patient was admitted with a COPD exacerbation. She's been seen since February 08. Unfortunately, the patient's not really improving despite aggressive therapy including bronchodilators and corticosteroids. For that reason, the patient will undergo bronchoscopy, airway examination, and therapeutic lavage and BAL today. Hopefully, the patient can be discharged home tomorrow. She remains on 2 L of oxygen. She is not receiving any IV fluids. No new laboratory data today. Progress note dated 02/13/2022. 52-year-old female again seen in room 629. The patient had a bronchoscopy yesterday, with therapeutic lavage and BAL of the right middle lobe. She's doing much better today. Not completely back to baseline but feeling much better. The bronchoscopy revealed significant erythema and hyperemia of the airways, significant bronchitis, and thick this did secretions throughout. We did do a BAL in the right middle lobe. The patient has a follow-up appointment with me in the office and could be considered for discharge today. No new labs today. There is 2950 WBCs in the bronchial washings, with 79% of them, being PMNs. Objective - Vital Signs Vital signs: Vital Signs Temp 97.5 F L 02/13/22 07:00 Pulse 63 02/13/22 08:01 Resp 20 02/13/22 07:00 BP 171/75 02/13/22 07:00 Pulse Ox 96 02/13/22 07:41 FiO2 21 02/12/22 20:16 Intake & Output 02/12/22 02/13/22 02/13/22 18:59 06:59 18:59 Intake Total 400 Balance 400 Intake: IV 100 Oral 300 Other: Voiding Method Toilet Toilet # Voids 4 1 - Exam No acute distress, oriented 3. The patient remains on O2 at 2 L. No audible wheezing, or use of accessory muscles. HEENT examination is grossly unremarkable. Neck supple. Full range of motion. No adenopathy thyromegaly or neck vein distention. Cardiovascular examination reveals regular rhythm rate. S1-S2 normal. No S3 or S4. No discernible murmur noted. Heart rate 63 bpm. Heart sounds are distant. Lungs reveal much improved breath sounds. Mild scattered rhonchi are still noted. No wheezes or crackles. There is prolongation on forced maneuver. 2 L saturation is 96%. Breath sounds are equal bilaterally. Abdomen soft bowel sounds are heard. No masses or tenderness. Extremities are intact. No cyanosis clubbing or edema. Skin is without rash or lesion. Neurologic examination is brief but nonfocal. - Labs CBC & Chem 7: 02/10/22 06:13 02/09/22 04:48 Labs: Abnormal Lab Results - Last 24 Hours (Table) 02/12/22 02/12/22 02/13/22 Range/Units 12:26 16:29 07:24 POC Glucose (mg/dL) 144 H 231 H 139 H (70-110) mg/dL Microbiology - Last 24 Hours (Table) 02/12/22 14:30 Fungal Culture - Preliminary Bronchoalviolar Lavage - Right 02/12/22 14:30 Acid Fast Bacilli Culture - Preliminary Bronchoalviolar Lavage - Right 02/12/22 14:30 Bronchial Washings Culture - Preliminary Bronchoalviolar Lavage - Right Assessment and Plan Assessment: Acute hypoxemic respiratory failure secondary to COPD/asthma exacerbation. Status post bronchoscopy, airway examination, therapeutic lavage and ,BAL of the right middle lobe, 02/12/2022. COPD, moderately severe, with an FEV1 that is 53% of predicted. Chronic and ongoing tobacco use. Hyperlipidemia. GERD. Anxiety/depression. History of obstructive sleep apnea syndrome, not requiring treatment. Obesity, status post gastric sleeve procedure. 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 Plan: Plan dated 02/09/2022. The patient is evaluated at bedside. She is not ready for discharge as yet. She remains on all appropriate medications. We will continue to follow make recommendations along the way. The patient's pro-calcitonin level is extremely low. Probably does not need any antibiotics at this time. We will continue to follow and make recommendations along the way. She'll see me in the office after discharge. Plan dated 02/10/2022. Today we have a long talk about the importance of smoking cessation. She keeps on sabotaging her health by continuing to smoke when she is not in the hospital. The patient remains on appropriate medications. Symbicort is discontinued in f avor of budesonide and formoterol. She remains on Solu-Medrol. She also remains on albuterol sulfate and ipratropium bromide. Additional recommendations and suggestions are forthcoming. Prognosis is guarded. Pro- calcitonin level is very low at 0.03. Antibiotics will be discontinued. Plan dated 02/11/2022. Today we talk about bronchoscopy with the patient. I believe she would benefit from it. She's really not improving on standard insignificant therapy including corticosteroids, bronchodilators, etc. The patient will be nothing by mouth after midnight. We will get a consent on the chart. Today we explained seizure to the patient. We will do it airway examination, BAL, therapeutic lavage. We will continue to follow the patient. Prognosis is guarded. Plan dated 02/12/2022. The patient is going to undergo bronchoscopy, airway examination, therapeutic lavage, and BAL today. I'm hoping that that'll get her over the hump so to speak, so that she can be discharged tomorrow. Information is passed onto the hospital service. Medications are reviewed. Labs and x-rays are reviewed. The patient's overall prognosis remains guarded. We will continue to follow. The patient has been counseled about the importance of smoking cessation. Plan dated 02/13/2022. The patient is doing much better. In my opinion, the patient could be discharged. I passed that info on to the primary hospital doctor. The patient does have an appointment to see me in the office. She should maintain that appointment. She should be discharged home on prednisone with a burst and taper. She should continue with all her other medications. Additional recommendations and suggestions are forthcoming. I do not believe she requires or needs an antibiotic at this time. Time with Patient: Less than 30
[2022-02-13 12:10] LABS: Glucose,Whole Blood 138 mg/dL (70-110)
[2022-02-13 12:22] VITALS: PULSE 73
--- NOTE | 2022-02-13 14:46 | P.DS ---
Providers Date of admission: 02/08/22 10:56 Expected date of discharge: 02/13/22 Attending physician: Lesley Motley MD Consults: 02/08/22 05:01 Consult Physician Routine Consulting Provider: Barrie Olmstead Consult Reason/Comments: known Do you want consulting provider notified?: Yes Primary care physician: Stated None Hospital Course: Discharge Diagnosis: Acute COPD exacerbation Acute hypoxic respiratory failure Leukocytosis Dyslipidemia Nicotine dependence GERD Hospital Course: 51-year-old female with history of COPD, nicotine dependence presented with acute shortness of breath and cough. She was admitted for acute COPD exacerbation and hypoxia. She stayed on supplemental oxygen, bronchodilators as well as steroids. Pulmonology was consulted. She did not improve much with standard therapy, had a bronchoscopy as an inpatient. During bronchoscopy, thick secretions were noted throughout trachea is some degree of tracheomalacia. Diffuse and quite severe erythema and hyperemia of the airway mucosa. Mucosal friability and vascular engorgement was also seen. BAL was done and sent for laboratory analysis. Patient is being discharged on a prednisone taper. She has follow-up with Dr. Olmstead (pulm) in the clinic. Patient seen and examined at bedside. Vital signs reviewed and stable. General: nontoxic, no distress, appears at stated age Derm: warm, dry Head: atraumatic, normocephalic, symmetric Eyes: EOMI, no lid lag, anicteric sclera Mouth: no lip lesion, mucus membranes moist Cardiovascular: S1S2 reg, no murmur Lungs: Scattered wheezes , no accessory muscle use Abdominal: soft, nontender to palpation, no guarding, no appreciable organomegaly Ext: no gross muscle atrophy, no edema, no contractures Neuro: CN II-XI grossly intact, no focal neuro deficits Psych: Alert, oriented, appropriate affect A total of 38 minutes of time were spent preparing this complex discharge summary. Patient was discharged on 02/13/22 at13:00. Patient Condition at Discharge: Fair Plan - Discharge Summary Discharge Rx Participant: No New Discharge Prescriptions: New predniSONE 40 mg PO DAILY #30 tab Continue ALPRAZolam [Xanax] 0.5 mg PO BID PRN PRN Reason: Anxiety Atorvastatin [Lipitor] 20 mg PO HS Cyclobenzaprine [Flexeril] 5 mg PO HS PRN PRN Reason: Muscle Pain Montelukast [Singulair] 10 mg PO HS Albuterol Nebulized [Ventolin Nebulized] 2.5 mg INHALATION RT-QID PRN PRN Reason: Shortness Of Breath Budesonide-Formot 160-4.5 Mcg [Symbicort 160-4.5 Mcg Inhaler] 2 puff INHALATION RT-BID Albuterol Sulfate [Ventolin HFA] 2 puff INHALATION RT-Q6H PRN PRN Reason: Shortness Of Breath Ipratropium-Albuterol Nebulize [Duoneb 0.5 mg-3 mg/3 ml Soln] 3 ml INHALATION RT-QID PRN PRN Reason: Shortness Of Breath Discontinued predniSONE See Taper PO DIRECTED Azithromycin [Zithromax] 500 mg PO DAILY Discharge Medication List ALPRAZolam [Xanax] 0.5 mg PO BID PRN 02/16/20 [History] Atorvastatin [Lipitor] 20 mg PO HS 04/18/20 [History] Albuterol Sulfate [Ventolin HFA] 2 puff INHALATION RT-Q6H PRN 02/15/21 [History] Cyclobenzaprine [Flexeril] 5 mg PO HS PRN 02/15/21 [History] Albuterol Nebulized [Ventolin Nebulized] 2.5 mg INHALATION RT-QID PRN 09/06/21 [History] Ipratropium-Albuterol Nebulize [Duoneb 0.5 mg-3 mg/3 ml Soln] 3 ml INHALATION RT-QID PRN 09/06/21 [History] Montelukast [Singulair] 10 mg PO HS 09/06/21 [History] Budesonide-Formot 160-4.5 Mcg [Symbicort 160-4.5 Mcg Inhaler] 2 puff INHALATION RT-BID 02/08/22 [History] predniSONE 40 mg PO DAILY #30 tab 02/13/22 [Rx] Follow up Appointment(s)/Referral(s): Barrie Olmstead DO [Doctor of Osteopathic Medicine] - 02/24/22 10:15 am None,Stated [Primary Care Provider] - 1-2 days Patient Instructions/Handouts: COPD (Chronic Obstructive Pulmonary Disease) (DC) Activity/Diet/Wound Care/Special Instructions: Please see your front desk clerk after your discharge. Discharge Disposition: HOME SELF-CARE
== END 2022-02-13 14:43 | disposition home or self-care (01) | DRG 190 ==
LOC: EC 04:04 → 6NMEDSUR 05:01 → OBSVTOIN 10:56 → 6NMEDSUR 16:59
PROVIDERS: ADMIT Internal Medicine; ATTEND Internal Medicine
PROC: 0B9D8ZX Drainage of Right Middle Lung Lobe, Via Natural or Artificial Opening Endoscopic, Diagnostic (ICD-10-PCS; principal; 2022-02-12 07:55)
DX: J44.1 Chronic obstructive pulmonary disease with (acute) exacerbation (principal); J96.01 Acute respiratory failure with hypoxia; Q33.6 Congenital hypoplasia and dysplasia of lung; Q25.5 Atresia of pulmonary artery; J45.901 Unspecified asthma with (acute) exacerbation; E11.9 Type 2 diabetes mellitus without complications; F32.A Depression, unspecified; I10 Essential (primary) hypertension; J39.8 Other specified diseases of upper respiratory tract; J84.10 Pulmonary fibrosis, unspecified; K21.9 Gastro-esophageal reflux disease without esophagitis; G47.33 Obstructive sleep apnea (adult) (pediatric); H40.9 Unspecified glaucoma; F41.9 Anxiety disorder, unspecified; F17.210 Nicotine dependence, cigarettes, uncomplicated; D72.828 Other elevated white blood cell count; T38.0X5A Adverse effect of glucocorticoids and synthetic analogues, initial encounter; E78.5 Hyperlipidemia, unspecified; Z20.822 Contact with and (suspected) exposure to COVID-19; Z79.899 Other long term (current) drug therapy; Z88.0 Allergy status to penicillin; Z91.048 Other nonmedicinal substance allergy status; Z91.013 Allergy to seafood; Z91.041 Radiographic dye allergy status; Z87.01 Personal history of pneumonia (recurrent); Z98.84 Bariatric surgery status; Z87.19 Personal history of other diseases of the digestive system; Z98.51 Tubal ligation status; Z98.890 Other specified postprocedural states; Z82.5 Family history of asthma and other chronic lower respiratory diseases; Z82.49 Family history of ischemic heart disease and other diseases of the circulatory system; Z80.3 Family history of malignant neoplasm of breast
CPT/HCPCS: 31624; 36415; 71045; 80053; 83036; 83605; 83735; 83880; 84145; 84484; 85025; 85379; 85610; 85730; 87070; 87102; 87116; 87205; 87206; 87252; 87496; 87498; 87502; 87529; 87634; 87635; 87798; 89050; 93005; 94640; 94760; 96361; 96365; 96375; 96376; 99285

== ENCOUNTER 2022-03-16 00:30 | Inpatient (IN) | payer OTHER ==
[2022-03-16] MEDS ORDERED: SODIUM CHLORIDE 0.9% 1,000 ML IV STA (01:07)
[2022-03-16] MEDS ORDERED: methylPREDNISolone SOD SUCCI 125 MG/2 ML VIAL IV STA (01:07)
[2022-03-16] MEDS ORDERED: IPRATROPIUM-ALBUTEROL 3 ML NEB INHALATION STA (01:08)
[2022-03-16] MEDS ORDERED: ALBUTEROL NEBULIZED (CONC) 5 MG, SODIUM CHLORIDE 0.9% NEBULIZ 3 ML INHALATION STA ×2 (01:08)
--- NOTE | 2022-03-16 01:11 | ED ---
SOB HPI - General Chief Complaint: Shortness of Breath Stated Complaint: Shortness of Breath Time Seen by Provider: 03/16/22 00:49 Source: patient, RN notes reviewed Mode of arrival: wheelchair - History of Present Illness Initial Comments: This is a pleasant 52-year-old female with a history of COPD, asthma, diet controlled diabetes mellitus, and pneumonia. Patient continues to smoke cigarettes but is trying to quit. Patient states for the past few days she has had increased shortness of breath, patient checked her oxygen saturation on a pulse oximeter home and was having oxygen saturation the low 90s. Patient also is status post a COVID-19 at work. Patient denying any pain. Patient improved here on oxygen. No headache, patient believes she might of had a fever last week., no changes in vision or hearing, no sore throat or difficulty with speech, no neck pain, no chest pain, no abdominal pain, no nausea or vomiting, no changes in urination or bowel movements, no numbness or tingling, no extremity pain, no skin rashes or lesions. Past medical, surgical, social, and family history reviewed. - Related Data Home Medications Medication Instructions Recorded Confirmed ALPRAZolam [Xanax] 0.5 mg PO BID PRN 02/16/20 02/08/22 Atorvastatin [Lipitor] 20 mg PO HS 04/18/20 02/08/22 Albuterol Sulfate [Ventolin HFA] 2 puff INHALATION RT-Q6H PRN 02/15/21 02/08/22 Cyclobenzaprine [Flexeril] 5 mg PO HS PRN 02/15/21 02/08/22 Albuterol Nebulized [Ventolin 2.5 mg INHALATION RT-QID PRN 09/06/21 02/08/22 Nebulized] Ipratropium-Albuterol Nebulize 3 ml INHALATION RT-QID PRN 09/06/21 02/08/22 [Duoneb 0.5 mg-3 mg/3 ml Soln] Montelukast [Singulair] 10 mg PO HS 09/06/21 02/08/22 Budesonide-Formot 160-4.5 Mcg 2 puff INHALATION RT-BID 02/08/22 02/08/22 [Symbicort 160-4.5 Mcg Inhaler] Previous Rx's Medication Instructions Recorded predniSONE 40 mg PO DAILY #30 tab 02/13/22 Allergies Allergy/AdvReac Type Severity Reaction Status Date / Time Penicillins Allergy Rash/Hives Verified 03/16/22 00:46 pollen extracts Allergy Dyspnea Verified 03/16/22 00:46 shellfish derived [Shellfish] Allergy Anaphylaxis Verified 03/16/22 00:46 Iodinated Contrast Media AdvReac Rash/Hives Verified 03/16/22 00:46 Review of Systems ROS Statement: Those systems with pertinent positive or pertinent negative responses have been documented in the HPI. ROS Other: All systems not noted in ROS Statement are negative. Past Medical History Past Medical History: Asthma, COPD, Diabetes Mellitus, Eye Disorder, GERD/Reflux, Pneumonia, Sleep Apnea/CPAP/BIPAP Additional Past Medical History / Comment(s): NIDDM type II(diet controlled following wt. loss), glaucoma bilaterally, tachycardia, AKIRA with CPAP not used the machine since she lost 80 lbs post gastric sleeve, Degenerative disc disease in her back and neck. HX COLITIS. History of rectal diverticulum. 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 History of Any Multi-Drug Resistant Organisms: None Reported Past Surgical History: Bariatric Surgery, Section, Tubal Ligation Additional Past Surgical History / Comment(s): cyst removal under right breast, x 2. gastric sleeve Sx 2016., Colonoscopy 2020. Past Anesthesia/Blood Transfusion Reactions: No Reported Reaction, Motion Sickness Past Psychological History: Anxiety, Depression Smoking Status: Current every day smoker Past Alcohol Use History: None Reported Past Drug Use History: None Reported - Past Family History Mother History Unknown: Yes Family Medical History: Cancer, COPD Additional Family Medical History / Comment(s): Breast cancer. She also has a paternal aunt with breast cancer. Father History Unknown: Yes Family Medical History: COPD, Myocardial Infarction ([place]), Vascular Disorder Additional Family Medical History / Comment(s): Father at age 64yrs. General Exam - General Exam Comments Initial Comments: Patient on oxygen. Patient had an SpO2 of 90% on room air. Mild increased work of breathing. Prolonged expiratory phase with faint expiratory wheezes. General appearance: alert, in no apparent distress Head exam: Present: atraumatic, normocephalic, normal inspection Eye exam: Present: normal appearance, PERRL, EOMI. Absent: scleral icterus, conjunctival injection, periorbital swelling ENT exam: Present: normal exam, normal oropharynx, mucous membranes dry, mucous membranes moist, normal external ear exam Neck exam: Present: normal inspection, full ROM. Absent: tenderness, meningismus, lymphadenopathy Respiratory exam: Present: respiratory distress (Minimal), wheezes (Minimal, faint expiratory), prolonged expiratory. Absent: normal lung sounds bilaterally, rales, rhonchi, stridor, chest wall tenderness, accessory muscle use (No definitive, no pursed lip breathing or accessory muscle use), decreased breath sounds Cardiovascular Exam: Present: regular rate, normal rhythm, normal heart sounds. Absent: systolic murmur, diastolic murmur, rubs, gallop, clicks GI/Abdominal exam: Present: soft, normal bowel sounds. Absent: distended, tenderness, guarding, rebound, rigid Extremities exam: Present: normal inspection, full ROM, normal capillary refill. Absent: tenderness, pedal edema, joint swelling, calf tenderness Back exam: Present: normal inspection Neurological exam: Present: alert, oriented X3, CN II-XII intact Psychiatric exam: Present: normal affect, normal mood Skin exam: Present: warm, dry, intact, normal color. Absent: rash Course Vital Signs 03/16/22 03/16/22 03/16/22 00:44 01:38 01:43 Temperature 98.3 F Pulse Rate 99 99 100 Respiratory 18 Rate Blood Pressure 145/88 O2 Sat by Pulse 90 L Oximetry - Reevaluation(s) Reevaluation #1: 03/16/22 03:11 Patient reevaluated, patient rechecked off oxygen. Patient has desaturation down into the 80s. D-dimer was negative. Troponin negative. Back on 2 L nasal cannula. Chest x-ray shows evidence of left lower lobe pneumonia. Awaiting radiology interpretation Medical Decision Making - Medical Decision Making Started the patient on Rocephin and Zithromax. We'll admit the patient for COPD and treated required pneumonia as well as hypoxemia The case was discussed in detail with ED attending physician. Presentation, findings, treatment plan discussed in detail. . Patient endorsed to the ED attending physician at 4 AM. Awaiting call back by the [facility] physician, Dr. Olsen. Admit orders of [place] in place. Pulmonary consult. Antibiotics have been given. - Lab Data Result diagrams: 03/16/22 01:00 03/16/22 01:00 Lab Results 03/16/22 03/16/22 03/16/22 Range/Units 01:00 01:00 01:00 WBC 17.9 H (3.8-10.6) k/uL RBC 5.00 (3.80-5.40) m/uL Hgb 15.6 (11.4-16.0) gm/dL Hct 46.0 (34.0-46.0) % MCV 92.1 (80.0-100.0) fL MCH 31.2 (25.0-35.0) pg MCHC 33.9 (31.0-37.0) g/dL RDW 13.2 (11.5-15.5) % Plt Count 285 (150-450) k/uL MPV 7.6 Neutrophils % 67 % Lymphocytes % 21 % Monocytes % 8 % Eosinophils % 0 % Basophils % 1 % Neutrophils # 12.0 H (1.3-7.7) k/uL Lymphocytes # 3.7 (1.0-4.8) k/uL Monocytes # 1.4 H (0-1.0) k/uL Eosinophils # 0.1 (0-0.7) k/uL Basophils # 0.2 (0-0.2) k/uL PT 10.1 (9.0-12.0) sec INR 0.9 (<1.2) D-Dimer 0.21 (<0.60) mg/L FEU Sodium 140 (137-145) mmol/L Potassium 3.4 L (3.5-5.1) mmol/L Chloride 105 (98-107) mmol/L Carbon Dioxide 25 (22-30) mmol/L Anion Gap 10 mmol/L BUN 22 H (7-17) mg/dL Creatinine 0.93 (0.52-1.04) mg/dL Est GFR (CKD-EPI)AfAm 82 (>60 ml/min/1.73 sqM) Est GFR (CKD-EPI)NonAf 71 (>60 ml/min/1.73 sqM) Glucose 104 H (74-99) mg/dL Plasma Lactic Acid Sesar (0.7-2.0) mmol/L Calcium 9.0 (8.4-10.2) mg/dL Magnesium 2.0 (1.6-2.3) mg/dL Total Bilirubin 0.7 (0.2-1.3) mg/dL AST 18 (14-36) U/L ALT 23 (4-34) U/L Alkaline Phosphatase 115 (38-126) U/L Troponin I (0.000-0.034) ng/mL NT-Pro-B Natriuret Pep pg/mL Total Protein 6.1 L (6.3-8.2) g/dL Albumin 4.0 (3.5-5.0) g/dL Coronavirus (PCR) (Not Detectd) Influenza Type A RNA (Not Detectd) Influenza Type B (PCR) (Not Detectd) 03/16/22 03/16/22 03/16/22 Range/Units 01:00 01:00 01:00 WBC (3.8-10.6) k/uL RBC (3.80-5.40) m/uL Hgb (11.4-16.0) gm/dL Hct (34.0-46.0) % MCV (80.0-100.0) fL MCH (25.0-35.0) pg MCHC (31.0-37.0) g/dL RDW (11.5-15.5) % Plt Count (150-450) k/uL MPV Neutrophils % % Lymphocytes % % Monocytes % % Eosinophils % % Basophils % % Neutrophils # (1.3-7.7) k/uL Lymphocytes # (1.0-4.8) k/uL Monocytes # (0-1.0) k/uL Eosinophils # (0-0.7) k/uL Basophils # (0-0.2) k/uL PT (9.0-12.0) sec INR (<1.2) D-Dimer (<0.60) mg/L FEU Sodium (137-145) mmol/L Potassium (3.5-5.1) mmol/L Chloride (98-107) mmol/L Carbon Dioxide (22-30) mmol/L Anion Gap mmol/L BUN (7-17) mg/dL Creatinine (0.52-1.04) mg/dL Est GFR (CKD-EPI)AfAm (>60 ml/min/1.73 sqM) Est GFR (CKD-EPI)NonAf (>60 ml/min/1.73 sqM) Glucose (74-99) mg/dL Plasma Lactic Acid Sesar 0.9 (0.7-2.0) mmol/L Calcium (8.4-10.2) mg/dL Magnesium (1.6-2.3) mg/dL Total Bilirubin (0.2-1.3) mg/dL AST (14-36) U/L ALT (4-34) U/L Alkaline Phosphatase (38-126) U/L Troponin I <0.012 (0.000-0.034) ng/mL NT-Pro-B Natriuret Pep 317 pg/mL Total Protein (6.3-8.2) g/dL Albumin (3.5-5.0) g/dL Coronavirus (PCR) (Not Detectd) Influenza Type A RNA (Not Detectd) Influenza Type B (PCR) (Not Detectd) 03/16/22 03/16/22 Range/Units 01:25 01:25 WBC (3.8-10.6) k/uL RBC (3.80-5.40) m/uL Hgb (11.4-16.0) gm/dL Hct (34.0-46.0) % MCV (80.0-100.0) fL MCH (25.0-35.0) pg MCHC (31.0-37.0) g/dL RDW (11.5-15.5) % Plt Count (150-450) k/uL MPV Neutrophils % % Lymphocytes % % Monocytes % % Eosinophils % % Basophils % % Neutrophils # (1.3-7.7) k/uL Lymphocytes # (1.0-4.8) k/uL Monocytes # (0-1.0) k/uL Eosinophils # (0-0.7) k/uL Basophils # (0-0.2) k/uL PT (9.0-12.0) sec INR (<1.2) D-Dimer (<0.60) mg/L FEU Sodium (137-145) mmol/L Potassium (3.5-5.1) mmol/L Chloride (98-107) mmol/L Carbon Dioxide (22-30) mmol/L Anion Gap mmol/L BUN (7-17) mg/dL Creatinine (0.52-1.04) mg/dL Est GFR (CKD-EPI)AfAm (>60 ml/min/1.73 sqM) Est GFR (CKD-EPI)NonAf (>60 ml/min/1.73 sqM) Glucose (74-99) mg/dL Plasma Lactic Acid Sesar (0.7-2.0) mmol/L Calcium (8.4-10.2) mg/dL Magnesium (1.6-2.3) mg/dL Total Bilirubin (0.2-1.3) mg/dL AST (14-36) U/L ALT (4-34) U/L Alkaline Phosphatase (38-126) U/L Troponin I (0.000-0.034) ng/mL NT-Pro-B Natriuret Pep pg/mL Total Protein (6.3-8.2) g/dL Albumin (3.5-5.0) g/dL Coronavirus (PCR) Not Detected (Not Detectd) Influenza Type A RNA Not Detected (Not Detectd) Influenza Type B (PCR) Not Detected (Not Detectd) - EKG Data EKG Comments: EKG done at 0053 and read by the ED attending physician reveals left axis deviation, normal intervals, rate of 98, no acute ST or T-wave changes. Possible right ventricular conduction delay. Inverted T waves noted in V1 and V2. Similar to the previous study aside from inverted T-wave in V2. - Radiology Data Radiology results: pending, image reviewed Chest x-ray shows evidence of left lower lobar infiltrate by my read. Did review with the attending physician. Disposition Clinical Impression: Hypoxemia requiring supplemental oxygen, COPD exacerbation, Hypokalemia Disposition: ADMITTED IP TO THIS HOSP Condition: Fair Is patient prescribed a controlled substance at d/c from ED?: No Referrals: None,Stated [Primary Care Provider] - 1-2 days Time of Disposition: 03:14 Decision to Admit Reason: Admit from EC Decision Time: 03:14
[2022-03-16 01:16] LABS: Basophils # (A) 0.2 k/uL (0-0.2); Basophils % (A) 1 %; Eosinophils # (A) 0.1 k/uL (0-0.7); Eosinophils % (A) 0 %; HGB 15.6 gm/dL (11.4-16.0); Lymphocytes # (A) 3.7 k/uL (1.0-4.8); Lymphocytes % (A) 21 %; MCH 31.2 pg (25.0-35.0); MCHC 33.9 g/dL (31.0-37.0); MCV 92.1 fL (80.0-100.0); Mean Platelet Volume 7.6; Monocytes # (A) 1.4 k/uL (0-1.0); Monocytes % (A) 8 %; Neutrophils % (A) 67 %; Platelet Count 285 k/uL (150-450); RDW 13.2 % (11.5-15.5); WBC 17.9 k/uL (3.8-10.6)
[2022-03-16 01:28] LABS: Potassium 3.4 mmol/L (3.5-5.1); Total Bilirubin 0.7 mg/dL (0.2-1.3); Total Protein 6.1 g/dL (6.3-8.2)
[2022-03-16 01:29] LABS: INR 0.9 (<1.2); Prothrombin Time 10.1 sec (9.0-12.0)
[2022-03-16] MEDS ORDERED: POTASSIUM CHLORIDE ER 20 MEQ TAB.ER PO STA (02:51)
[2022-03-16] MEDS ORDERED: AZITHROMYCIN 500 MG in SODIUM CHLORIDE 0.9% 250 ML IVPB STA (03:02)
[2022-03-16] MEDS ORDERED: PNEUMONIA PROTOCOL UTILIZED 1 EACH MISC PO PRN (03:02)
--- NOTE | 2022-03-16 03:07 | XR ---
EXAMINATION TYPE: XR chest 2V DATE OF EXAM: 03/16/2022 COMPARISON: 02/08/2022 HISTORY: Short of breath TECHNIQUE: 2 views FINDINGS: Heart size is normal. There is right-sided aortic arch. Costophrenic angles are fairly iman r. There are no hilar masses. Bony thorax is intact. The lungs are clear of consolidation. There is slight coarsening of interstitial markings. IMPRESSION: No active cardiopulmonary disease. There is possible pulmonary interstitial mild fibrotic changes. No adverse change compared to old exam.
[2022-03-16] MEDS ORDERED: ACETAMINOPHEN TAB 325 MG TAB PO PRN (03:26)
[2022-03-16] MEDS ORDERED: NALOXONE 0.4 MG/ML 1 ML VIAL IVP PRN (03:26)
[2022-03-16] MEDS ORDERED: ALBUTEROL NEBULIZED 2.5 MG/3 ML INHALATION PRN (03:29)
[2022-03-16] MEDS: methylPREDNISolone SOD SUCCI 125 MG/2 ML VIAL IV SCH ×4 (06:52→23:03)
[2022-03-16] MEDS: IPRATROPIUM-ALBUTEROL 3 ML NEB INHALATION PRN ×3 (07:32→20:08)
[2022-03-16] MEDS: SYMBICORT 160-4.5 MCG INHALER INHALATION SCH ×2 (07:32→20:08)
[2022-03-16] MEDS: NICOTINE 14MG/24HR PATCH TRANSDERM SCH (08:12)
[2022-03-16] MEDS: HEPARIN SODIUM,PORCINE/PF 5,000 UNIT/0.5 ML SYRINGE SQ SCH ×3 (08:12→23:03)
--- NOTE | 2022-03-16 11:00 | P.HPIM ---
History of Present Illness This is a pleasant 51 years old female with multiple medical problems as below. Presents because of dyspnea since for the last 4-5 days. Associated with little white creamy phlegm and occasional coughing. She has some chest pain with coughing only when severe enough. She is not on home oxygen but she follows up with Dr. Tellez as an outpatient. PCP is Dr. Vlad dominguez but not anymore as she states. She denies abdominal pain vomiting or diarrhea. No urinary symptoms. No headache or dizziness or weakness or numbness She smokes cigarettes and she says she is down to 2 cigarettes per day and she decided to quit. She denies alcohol or illicit drugs Vitals are stable on admission and she is saturating 90% on room air. Currently she has saturation of 94% on 32 oxygen via nasal cannula. Patient is afebrile. Labs showed leukocytosis of 17.9, rest of BMP, INR, CBC and liver enzymes are unremarkable. Troponin negative, proBNP is low. Influenza and covid viruses are undetected. EKG showing sinus rhythm at [address]-T changes Chest x-ray: There is possible pulmonary interstitial mild fibrotic changes. No other structures compared to old exam. No active cardiopulmonary disease In the emergency room patient receives normal saline, steroids and bronchodilator therapy. Also he was given 1 dose of antibiotic. Currently he is on Solu-Medrol 60 mg. Review of Systems Review of systems CONSTITUTIONAL: No fever, no malaise, no fatigue. HEENT: No recent visual problems or hearing problems. Denied any sore throat. CARDIOVASCULAR: No orthopnea, PND, no palpitations, no syncope. PULMONARY: No chest wall tenderness, no hemoptysis. GASTROINTESTINAL: No diarrhea, no nausea, no vomiting, no abdominal pain. Normoactive bowel sounds. NEUROLOGICAL: No headaches, no weakness, no numbness. HEMATOLOGICAL: Denies any bleeding or petechiae. GENITOURINARY: Denies any burning micturition, frequency, or urgency. MUSCULOSKELETAL/RHEUMATOLOGICAL: Denies any joint pain, swelling, or any muscle pain. ENDOCRINE: Denies any polyuria or polydipsia. Past Medical History Past Medical History: Asthma, COPD, Diabetes Mellitus, Eye Disorder, GERD/Reflux, Pneumonia, Sleep Apnea/CPAP/BIPAP Additional Past Medical History / Comment(s): NIDDM type II(diet controlled following wt. loss), glaucoma bilaterally, tachycardia, AKIRA with CPAP not used the machine since she lost 80 lbs post gastric sleeve, Degenerative disc disease in her back and neck. HX COLITIS. History of rectal diverticulum. 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 History of Any Multi-Drug Resistant Organisms: None Reported Past Surgical History: Bariatric Surgery, Section, Tubal Ligation Additional Past Surgical History / Comment(s): cyst removal under right breast, x 2. gastric sleeve Sx 2016., Colonoscopy 2020. Past Anesthesia/Blood Transfusion Reactions: No Reported Reaction, Motion Sickness Past Psychological History: Anxiety, Depression Smoking Status: Current every day smoker Past Alcohol Use History: None Reported Past Drug Use History: None Reported - Past Family History Mother History Unknown: Yes Family Medical History: Cancer, COPD Additional Family Medical History / Comment(s): Breast cancer. She also has a paternal aunt with breast cancer. Father History Unknown: Yes Family Medical History: COPD, Myocardial Infarction ([place]), Vascular Disorder Additional Family Medical History / Comment(s): Father at age 64yrs. Medications and Allergies Home Medications Medication Instructions Recorded Confirmed Type ALPRAZolam [Xanax] 0.5 mg PO BID PRN 02/16/20 03/16/22 History Atorvastatin [Lipitor] 20 mg PO HS 04/18/20 03/16/22 History Albuterol Sulfate [Ventolin HFA] 2 puff INHALATION RT-Q6H PRN 02/15/21 03/16/22 History Cyclobenzaprine [Flexeril] 5 mg PO HS PRN 02/15/21 03/16/22 History Ipratropium-Albuterol Nebulize 3 ml INHALATION RT-QID PRN 09/06/21 03/16/22 History [Duoneb 0.5 mg-3 mg/3 ml Soln] Montelukast [Singulair] 10 mg PO HS 09/06/21 03/16/22 History Budesonide-Formot 160-4.5 Mcg 2 puff INHALATION RT-BID 02/08/22 03/16/22 History [Symbicort 160-4.5 Mcg Inhaler] Bepotastine Besilate 1 drop BOTH EYES DAILY 03/16/22 03/16/22 History Budesonide 1 mg INHALATION RT-BID 03/16/22 03/16/22 History buPROPion XL [Wellbutrin XL] 150 mg PO DAILY 03/16/22 03/16/22 History guaiFENesin [Mucinex] 600 mg PO Q12H 03/16/22 03/16/22 History Allergies Allergy/AdvReac Type Severity Reaction Status Date / Time Iodinated Contrast Media Allergy Rash/Hives Verified 03/16/22 07:00 Penicillins Allergy Rash/Hives Verified 03/16/22 07:00 pollen extracts Allergy Dyspnea Verified 03/16/22 07:00 shellfish derived [Shellfish] Allergy Anaphylaxis Verified 03/16/22 07:00 Physical Exam Vitals: Vital Signs Temp Pulse Resp BP Pulse Ox 03/16/22 10:41 16 134/71 94 L 03/16/22 09:54 97.9 F 84 16 118/74 92 L 03/16/22 09:17 68 16 115/71 93 L 03/16/22 08:13 92 L 03/16/22 08:01 98.2 F 88 16 130/71 95 03/16/22 07:44 90 03/16/22 07:34 89 03/16/22 04:23 17 03/16/22 04:22 82 18 131/66 95 03/16/22 03:46 81 15 140/74 95 03/16/22 02:46 71 17 144/65 95 03/16/22 01:43 100 03/16/22 01:38 99 03/16/22 00:44 98.3 F 99 18 145/88 90 L Intake and Output 03/15/22 03/16/22 03/16/22 22:59 06:59 14:59 Other: Weight 63.503 kg GENERAL: The patient is alert and oriented x3, not in any acute distress. Well developed, well nourished. HEENT: Pupils are round and equally reacting to light. EOMI. No scleral icterus. No conjunctival pallor. Normocephalic, atraumatic. No pharyngeal erythema. No thyromegaly. CARDIOVASCULAR: S1 and S2 present. No murmurs, rubs, or gallops. -PULMONARY: Chest is clear to auscultation, bilateral scattered wheezing , no c rackles. ABDOMEN: Soft, nontender, nondistended, normoactive bowel sounds. No palpable organomegaly. MUSCULOSKELETAL: No joint swelling or deformity. EXTREMITIES: No cyanosis, clubbing, or pedal edema. NEUROLOGICAL: Gross neurological examination did not reveal any focal deficits. SKIN: No rashes. no petechiae. Results CBC & Chem 7: 03/16/22 01:00 03/16/22 01:00 Labs: Abnormal Lab Results - Last 24 Hours (Table) 03/16/22 03/16/22 Range/Units 01:00 01:00 WBC 17.9 H (3.8-10.6) k/uL Neutrophils # 12.0 H (1.3-7.7) k/uL Monocytes # 1.4 H (0-1.0) k/uL Potassium 3.4 L (3.5-5.1) mmol/L BUN 22 H (7-17) mg/dL Glucose 104 H (74-99) mg/dL Total Protein 6.1 L (6.3-8.2) g/dL Assessment and Plan Assessment: Acute COPD exacerbation Acute hypoxic respiratory failure, mild Nicotine dependence Diabetes mellitus History of GERD History of obstructive sleep apnea on CPAP machine Plan: This is a pleasant 52 years old female with COPD and pneumonia With antibiotic Continue with steroids both systemic and inhaled Continue with bronchodilator Pulmonary consult Labs and medication were reviewed.. Continue same treatment. Continue with symptomatic treatment. Resume home medication. Monitor lytes and vitals. DVT and GI prophylaxis. Further recommendations as per clinical course of the p atient DVT prophylaxis: Subcutaneous heparin GI Prophylaxis: Pepcid
--- NOTE | 2022-03-16 12:02 | P.CNPUL ---
History of Present Illness Consult date: 03/16/22 Requesting physician: Rosales Aguilar Reason for consult: dyspnea, COPD Chief complaint: Shortness of breath, cough, congestion History of present illness: This is a very pleasant 52-year-old female patient with a known history of hyperlipidemia, diabetes mellitus, gastroesophageal reflux disease, previous obesity status post gastric sleeve and was able to be CPAP for obstructive sleep apnea, chronic and ongoing tobacco dependence, chronic obstructive pulmonary disease with an FEV1 value 53% of predicted. She follows with Dr. Olmstead in our office. She was recently admitted here in January 2022 for a COPD exacerbation and had undergone bronchoscopy with BAL, cultures were negative, she did recover and was doing well at her last appointment 02/24/2022 however the last several days she developed increasing shortness of breath, cough congestion. Chest x-ray reveals no acute pulmonary process. Mild pulmonary fibrosis. No change compared to previous in January 2022. She is seen today in consultation in the emergency department. Currently sitting up on the stretcher. Awake and alert in no acute distress. Maintaining O2 saturations in the 90s on 3 L/m per nasal cannula. She's been afebrile. Hemodynamically stable. White count 17.9. Hemoglobin 15.6. D-dimer 0.21. Sodium 140. Potassium 3.4. BUN 22. Creatinine 0.93. ProBNP 317. Troponin negative 1. She was initiated on Symbicort, DuoNeb inhalations, IV Solu-Medrol. Empiric antibiotics in the form of ceftriaxone and azithromycin. Nicoderm patch in place. Heparin for DVT prophylaxis. Review of Systems REVIEW OF SYSTEMS: CONSTITUTIONAL: Denies any recent significant weight loss or weight gain. EYES: Denies change in vision. EARS, NOSE, MOUTH, THROAT: Denies headaches, denies sore throat. CARDIOVASCULAR: Denies chest pain, palpitations or syncopal episodes. RESPIRATORY: Positive for shortness of breath, cough, congestion no hemoptysis. GASTROINTESTINAL: Denies change in appetite, denies abdominal pain GENITOURINARY: Denies hematuria, denies infections. MUSKULOSKELETAL: Denies pain, denies swelling. INTEGUMENTARY: Denies rash, denies eczema. NEUROLOGICAL: Denies recent memory loss, no recent seizure activity. PSYCHIATRIC: Denies anxiety, denies depression. HEMATOLOGIC/LYMPHATIC: Denies anemia, denies enlarged lymph nodes. Past Medical History Past Medical History: Asthma, COPD, Diabetes Mellitus, Eye Disorder, GERD/Reflux, Pneumonia, Sleep Apnea/CPAP/BIPAP Additional Past Medical History / Comment(s): NIDDM type II(diet controlled following wt. loss), glaucoma bilaterally, tachycardia, AKIRA with CPAP not used the machine since she lost 80 lbs post gastric sleeve, Degenerative disc disease in her back and neck. HX COLITIS. History of rectal diverticulum. PAST [employer] HISTORY: She has no history of STDs. History of Any Multi-Drug Resistant Organisms: None Reported Past Surgical History: Bariatric Surgery, Section, Tubal Ligation Additional Past Surgical History / Comment(s): cyst removal under right breast, x 2. gastric sleeve Sx 2016., Colonoscopy 2020. Past Anesthesia/Blood Transfusion Reactions: No Reported Reaction, Motion Sickness Past Psychological History: Anxiety, Depression Smoking Status: Current every day smoker Past Alcohol Use History: None Reported Past Drug Use History: None Reported - Past Family History Mother History Unknown: Yes Family Medical History: Cancer, COPD Additional Family Medical History / Comment(s): Breast cancer. She also has a paternal aunt with breast cancer. Father History Unknown: Yes Family Medical History: COPD, Myocardial Infarction (SD), Vascular Disorder Additional Family Medical History / Comment(s): Father at age 64yrs. Medications and Allergies Home Medications Medication Instructions Recorded Confirmed Type ALPRAZolam [Xanax] 0.5 mg PO BID PRN 02/16/20 03/16/22 History Atorvastatin [Lipitor] 20 mg PO HS 04/18/20 03/16/22 History Albuterol Sulfate [Ventolin HFA] 2 puff INHALATION RT-Q6H PRN 02/15/21 03/16/22 History Cyclobenzaprine [Flexeril] 5 mg PO HS PRN 02/15/21 03/16/22 History Ipratropium-Albuterol Nebulize 3 ml INHALATION RT-QID PRN 09/06/21 03/16/22 History [Duoneb 0.5 mg-3 mg/3 ml Soln] Montelukast [Singulair] 10 mg PO HS 09/06/21 03/16/22 History Budesonide-Formot 160-4.5 Mcg 2 puff INHALATION RT-BID 02/08/22 03/16/22 History [Symbicort 160-4.5 Mcg Inhaler] Bepotastine Besilate 1 drop BOTH EYES DAILY 03/16/22 03/16/22 History Budesonide 1 mg INHALATION RT-BID 03/16/22 03/16/22 History buPROPion XL [Wellbutrin XL] 150 mg PO DAILY 03/16/22 03/16/22 History guaiFENesin [Mucinex] 600 mg PO Q12H 03/16/22 03/16/22 History Allergies Allergy/AdvReac Type Severity Reaction Status Date / Time Iodinated Contrast Media Allergy Rash/Hives Verified 03/16/22 07:00 Penicillins Allergy Rash/Hives Verified 03/16/22 07:00 pollen extracts Allergy Dyspnea Verified 03/16/22 07:00 shellfish derived [Shellfish] Allergy Anaphylaxis Verified 03/16/22 07:00 Physical Exam Vitals: Vital Signs Temp Pulse Resp BP Pulse Ox 03/16/22 11:01 88 03/16/22 10:54 87 03/16/22 10:41 16 134/71 94 L 03/16/22 09:54 97.9 F 84 16 118/74 92 L 03/16/22 09:17 68 16 115/71 93 L 03/16/22 08:13 92 L 03/16/22 08:01 98.2 F 88 16 130/71 95 03/16/22 07:44 90 03/16/22 07:34 89 03/16/22 04:23 17 03/16/22 04:22 82 18 131/66 95 03/16/22 03:46 81 15 140/74 95 03/16/22 02:46 71 17 144/65 95 03/16/22 01:43 100 03/16/22 01:38 99 03/16/22 00:44 98.3 F 99 18 145/88 90 L Intake and Output 03/15/22 03/16/22 03/16/22 22:59 06:59 14:59 Other: Weight 63.503 kg GENERAL EXAM: Alert, pleasant 52-year-old female, on 3 L nasal cannula, comfortable in no apparent distress. HEAD: Normocephalic. EYES: Normal reaction of pupils, equal size. NOSE: Clear with pink turbinates. THROAT: No erythema or exudates. NECK: No masses, no JVD. CHEST: No chest wall deformity. LUNGS: Equal air entry with faint end expiratory wheeze, diminished CVS: S1 and S2 normal with no audible murmur, regular rhythm. ABDOMEN: No hepatosplenomegaly, normal bowel sounds, no guarding or rigidity. SPINE: No scoliosis or deformity SKIN: No rashes CENTRAL NERVOUS SYSTEM: No focal deficits, tone is normal in all 4 extremities. EXTREMITIES: There is no peripheral edema. No clubbing, no cyanosis. Peripheral pulses are intact. Results - Laboratory Findings CBC and BMP: 03/16/22 01:00 03/16/22 01:00 PT/INR, D-dimer PT 10.1 sec (9.0-12.0) 03/16/22 01:00 INR 0.9 (<1.2) 03/16/22 01:00 D-Dimer 0.21 mg/L FEU (<0.60) 03/16/22 01:00 Abnormal lab findings: Abnormal Labs 03/16/22 03/16/22 01:00 01:00 WBC 17.9 H Neutrophils # 12.0 H Monocytes # 1.4 H Potassium 3.4 L BUN 22 H Glucose 104 H Total Protein 6.1 L - Diagnostic Findings Chest x-ray: image reviewed Assessment and Plan Assessment: Acute hypoxemic respiratory failure secondary to an acute exacerbation of chronic obstructive pulmonary disease Recent admission for COPD exacerbation status post bronchoscopy with BAL in January 2022, cultures negative Chronic obstructive pulmonary disease with an FEV1 value 53% of predicted. Maintained on Advair, albuterol and DuoNeb inhalations Chronic and ongoing tobacco dependence Hyperlipidemia Gastroesophageal reflux disease Anxiety/depression History of obstructive sleep apnea, not utilizing CPAP, had since lost 80 pounds History of obesity, status post gastric sleeve placement Plan: The patient was seen and evaluated Chest x-ray, labs and medications reviewed Continue Symbicort, DuoNeb's, IV Solu-Medrol Titrate down the FiO2 as tolerated Empiric antibiotics for now, pro-calcitonin pending Heparin for DVT prophylaxis Again educated regarding the importance of complete smoking cessation NicoDerm patch ordered We will continue to follow and make further recommendations based on her clinical status I have personally seen and examined the patient, performed the documentation and the assessment and plan as written. Number of minutes spent on the visit: 20.
[2022-03-16] MEDS: FAMOTIDINE 20 MG/2 ML VIAL IV SCH (20:07)
[2022-03-16] MEDS: MONTELUKAST 10 MG TAB PO SCH (20:07)
[2022-03-17] MEDS: methylPREDNISolone SOD SUCCI 125 MG/2 ML VIAL IV SCH ×3 (05:04→17:21)
[2022-03-17] MEDS: SYMBICORT 160-4.5 MCG INHALER INHALATION SCH ×2 (07:46→19:23)
[2022-03-17] MEDS: IPRATROPIUM-ALBUTEROL 3 ML NEB INHALATION PRN ×4 (07:46→19:23)
[2022-03-17] MEDS: FAMOTIDINE 20 MG/2 ML VIAL IV SCH (08:44)
[2022-03-17] MEDS: NICOTINE 14MG/24HR PATCH TRANSDERM SCH (08:44)
[2022-03-17] MEDS: HEPARIN SODIUM,PORCINE/PF 5,000 UNIT/0.5 ML SYRINGE SQ SCH ×2 (08:45→17:21)
[2022-03-17] MEDS ORDERED: AZITHROMYCIN 500 MG TAB PO SCH (09:00)
[2022-03-17 09:06] LABS: African American GFR (CKD) 114.6 (60.0-200.0); Anion Gap 8.6 mmol/L (10.00-18.00); BUN/Creat Ratio 18.29 Ratio (12.00-20.00); Blood Urea Nitrogen 12.8 mg/dL (9.0-27.0); Calcium 9.1 mg/dL (8.7-10.3); Carbon Dioxide 26.4 mmol/L (20.0-27.5); Magnesium 2.3 mg/dL (1.5-2.4); Non-African American GFR(CKD) 98.9 (60.0-200.0); Potassium 4.4 mmol/L (3.5-5.5)
[2022-03-17] MEDS ORDERED: CYCLOBENZAPRINE 5 MG TAB PO PRN (09:57)
--- NOTE | 2022-03-17 10:28 | XR ---
EXAMINATION TYPE: XR chest 2V DATE OF EXAM: 03/17/2022 COMPARISON: 03/16/2022 TECHNIQUE: PA and lateral views submitted. HISTORY: Cough possible pneumonia FINDINGS: There appears to be a right-sided aortic arch. Coarsened interstitium is seen in the heart size is st able. No sizable pleural effusion or pneumothorax. Diffuse osteopenia and arthropathy of the shoulder s. IMPRESSION: 1. Suspect pulmonary fibrosis. 2. Right-sided aortic arch.
[2022-03-17] MEDS: buPROPion XL 150 MG TAB.ER.24H PO SCH (10:39)
[2022-03-17] MEDS: guaiFENesin 600 MG TABLET.ER PO SCH ×2 (10:39→20:50)
[2022-03-17] MEDS: ALPRAZolam 0.5 MG TAB PO PRN ×2 (10:39→20:50)
--- NOTE | 2022-03-17 12:10 | P.PN ---
Subjective Progress Note Date: 03/17/22 This is a very pleasant 52-year-old female patient with a known history of hyperlipidemia, diabetes mellitus, gastroesophageal reflux disease, previous obesity status post gastric sleeve and was able to be CPAP for obstructive sleep apnea, chronic and ongoing tobacco dependence, chronic obstructive pulmonary disease with an FEV1 value 53% of predicted. She follows with Dr. Olmstead in our office. She was recently admitted here in January 2022 for a COPD exacerbation and had undergone bronchoscopy with BAL, cultures were negative, she did recover and was doing well at her last appointment 02/24/2022 however the last several days she developed increasing shortness of breath, cough congestion. Chest x-ray reveals no acute pulmonary process. Mild pulmonary fibrosis. No change compared to previous in January 2022. She is seen today in consultation in the emergency department. Currently sitting up on the stretcher. Awake and alert in no acute distress. Maintaining O2 saturations in the 90s on 3 L/m per nasal cannula. She's been afebrile. Hemodynamically stable. White count 17.9. Hemoglobin 15.6. D-dimer 0.21. Sodium 140. Potassium 3.4. BUN 22. Creatinine 0.93. ProBNP 317. Troponin negative 1. She was initiated on Symbicort, DuoNeb inhalations, IV Solu-Medrol. Empiric a ntibiotics in the form of ceftriaxone and azithromycin. Nicoderm patch in place. Heparin for DVT prophylaxis. The patient is seen today 03/17/2022 in follow-up on the regular medical floor. She's currently sitting up in bed. Awake and alert in no acute distress. She is improved. Not quite back to her baseline. She states she does desaturate into the 70s after a walk to the bathroom. She has her own oximeter present. She is currently maintaining O2 saturation on 90s on 3 L/m per nasal cannula. Afebrile. Hemodynamically stable. Sodium 142. Potassium 4.4. BUN 12. Creatinine 0.7. Barnard virus by PCR not detected. Influenza screen negative. She is continued on DuoNeb inhalations, Symbicort, IV Solu-Medrol. Empiric antibiotics in the form of ceftriaxone and azithromycin. Heparin for DVT prophylaxis. NicoDerm patch in place. Objective - Vital Signs Vital signs: Vital Signs Temp 98.9 F 03/17/22 11:11 Pulse 82 10/18/22 11:35 Resp 18 03/17/22 11:35 BP 145/83 03/17/22 11:11 Pulse Ox 94 L 03/17/22 11:11 FiO2 Intake & Output 03/16/22 03/17/22 03/17/22 18:59 06:59 18:59 Intake Total 200 Balance 200 Intake: Oral 200 Other: # Voids 2 - Exam GENERAL EXAM: Alert, very pleasant 52-year-old female, on 3 L nasal cannula, comfortable in no apparent distress. HEAD: Normocephalic. EYES: Normal reaction of pupils, equal size. NOSE: Clear with pink turbinates. THROAT: No erythema or exudates. NECK: No masses, no JVD. CHEST: No chest wall deformity. LUNGS: Equal air entry with faint end expiratory wheeze, diminished CVS: S1 and S2 normal with no audible murmur, regular rhythm. ABDOMEN: No hepatosplenomegaly, normal bowel sounds, no guarding or rigidity. SPINE: No scoliosis or deformity SKIN: No rashes CENTRAL NERVOUS SYSTEM: No focal deficits, tone is normal in all 4 extremities. EXTREMITIES: There is no peripheral edema. No clubbing, no cyanosis. Peripheral pulses are intact. - Labs CBC & Chem 7: 03/16/22 01:00 03/17/22 05:42 Labs: Abnormal Lab Results - Last 24 Hours (Table) 03/17/22 Range/Units 05:42 Anion Gap 8.60 L (10.00-18.00) mmol/L Glucose 134 H (70-110) mg/dL Assessment and Plan Assessment: Acute hypoxemic respiratory failure secondary to an acute exacerbation of chronic obstructive pulmonary disease. No evidence of pneumonia. Pro- calcitonin 0.03. Barnard virus negative. Influenza screen negative. Recent admission for COPD exacerbation status post bronchoscopy with BAL in January 2022, cultures negative Chronic obstructive pulmonary disease with an FEV1 value 53% of predicted. Maintained on Advair, albuterol and DuoNeb inhalations Chronic and ongoing tobacco dependence Hyperlipidemia Gastroesophageal reflux disease Anxiety/depression History of obstructive sleep apnea, not utilizing CPAP, had since lost 80 pounds History of obesity, status post gastric sleeve placement Plan: The patient was seen and evaluated Labs and medications reviewed Continue Symbicort, DuoNeb's, IV Solu-Medrol To evaluate for possible home oxygen Discontinue antibiotics Probable home in the a.m. We will continue to follow I have personally seen and examined the patient, performed the documentation and the assessment and plan as written. Number of minutes spent on the visit: 10.
--- NOTE | 2022-03-17 20:14 | P.PN ---
Subjective This is a pleasant 51 years old female with multiple medical problems as below. Presents because of dyspnea since for the last 4-5 days. Associated with little white creamy phlegm and occasional coughing. She has some chest pain with coughing only when severe enough. She is not on home oxygen but she follows up with Dr. Tellez as an outpatient. PCP is Dr. Vlad dominguez but not anymore as she states. She denies abdominal pain vomiting or diarrhea. No urinary symptoms. No headache or dizziness or weakness or numbness She smokes cigarettes and she says she is down to 2 cigarettes per day and she decided to quit. She denies alcohol or illicit drugs Vitals are stable on admission and she is saturating 90% on room air. Currently she has saturation of 94% on 32 oxygen via nasal cannula. Patient is afebrile. Labs showed leukocytosis of 17.9, rest of BMP, INR, CBC and liver enzymes are unremarkable. Troponin negative, proBNP is low. Influenza and covid viruses are undetected. EKG showing sinus rhythm at [address]-T changes Chest x-ray: There is possible pulmonary interstitial mild fibrotic changes. No other structures compared to old exam. No active cardiopulmonary disease In the emergency room patient receives normal saline, steroids and bronchodilator therapy. Also he was given 1 dose of antibiotic. Currently he is on Solu-Medrol 60 mg. 03/17/2022 Patient is significantly improving and she has significantly less wheezing today. At times she gets slightly hypoxic and tachycardic. Patient thinks she needs to send the hospital 1 more day. Other vitals are stable and patient is afebrile Patient currently on Solu-Medrol 60 mg. Antibiotics Stopped today Objective - Vital Signs Vital signs: Vital Signs Temp 98.9 F 03/17/22 11:11 Pulse 82 03/17/22 11:35 Resp 18 03/17/22 11:35 BP 145/83 03/17/22 11:11 Pulse Ox 94 L 03/17/22 11:11 FiO2 Intake & Output 03/16/22 03/17/22 03/17/22 18:59 06:59 18:59 Intake Total 200 Balance 200 Intake: Oral 200 Other: # Voids 2 - Exam GENERAL: The patient is alert and oriented x3, not in any acute distress. Well developed, well nourished. HEENT: Pupils are round and equally reacting to light. EOMI. No scleral icterus. No conjunctival pallor. Normocephalic, atraumatic. No pharyngeal erythema. No thyromegaly. CARDIOVASCULAR: S1 and S2 present. No murmurs, rubs, or gallops. -PULMONARY: Chest is clear to auscultation, improving bilateral scattered wheezing , no crackles. ABDOMEN: Soft, nontender, nondistended, normoactive bowel sounds. No palpable organomegaly. MUSCULOSKELETAL: No joint swelling or deformity. EXTREMITIES: No cyanosis, clubbing, or pedal edema. NEUROLOGICAL: Gross neurological examination did not reveal any focal deficits. SKIN: No rashes. no petechiae. - Labs CBC & Chem 7: 03/16/22 01:00 03/17/22 05:42 Labs: Abnormal Lab Results - Last 24 Hours (Table) 03/17/22 Range/Units 05:42 Anion Gap 8.60 L (10.00-18.00) mmol/L Glucose 134 H (70-110) mg/dL Assessment and Plan Assessment: Acute COPD exacerbation Acute hypoxic respiratory failure, mild Nicotine dependence Diabetes mellitus History of GERD History of obstructive sleep apnea on CPAP machine Plan: This is a pleasant 52 years old female with COPD and pneumonia Discontinue antibiotic Continue with steroids both systemic and inhaled Continue with bronchodilator Pulmonary consult Labs and medication were reviewed.. Continue same treatment. Continue with symptomatic treatment. Resume home medication. Monitor lytes and vitals. DVT and GI prophylaxis. Further recommendations as per clinical course of the patient DVT prophylaxis: Subcutaneous heparin GI Prophylaxis: Pepcid
[2022-03-17] MEDS: FAMOTIDINE 20 MG TAB PO SCH (20:50)
[2022-03-17] MEDS: MONTELUKAST 10 MG TAB PO SCH (20:50)
[2022-03-17] MEDS ORDERED: ATORVASTATIN 20 MG TAB PO SCH (21:00)
[2022-03-18] MEDS: methylPREDNISolone SOD SUCCI 125 MG/2 ML VIAL IV SCH ×2 (00:13→05:34)
[2022-03-18] MEDS: HEPARIN SODIUM,PORCINE/PF 5,000 UNIT/0.5 ML SYRINGE SQ SCH ×2 (00:13→08:13)
[2022-03-18] MEDS: IPRATROPIUM-ALBUTEROL 3 ML NEB INHALATION PRN ×2 (07:28→11:36)
[2022-03-18] MEDS: SYMBICORT 160-4.5 MCG INHALER INHALATION SCH (07:28)
[2022-03-18] MEDS: FAMOTIDINE 20 MG TAB PO SCH (08:13)
[2022-03-18] MEDS: NICOTINE 14MG/24HR PATCH TRANSDERM SCH (08:13)
[2022-03-18] MEDS: buPROPion XL 150 MG TAB.ER.24H PO SCH (08:13)
[2022-03-18] MEDS: guaiFENesin 600 MG TABLET.ER PO SCH (08:13)
[2022-03-18 10:05] VITALS: BP 150/83
[2022-03-18] MEDS: ALPRAZolam 0.5 MG TAB PO PRN (10:31)
[2022-03-18] MEDS ORDERED: busPIRone HCl 5 MG TAB PO SCH (11:00)
--- NOTE | 2022-03-18 11:55 | P.PN ---
Subjective Progress Note Date: 03/18/22 This is a very pleasant 52-year-old female patient with a known history of hyperlipidemia, diabetes mellitus, gastroesophageal reflux disease, previous obesity status post gastric sleeve and was able to be CPAP for obstructive sleep apnea, chronic and ongoing tobacco dependence, chronic obstructive pulmonary disease with an FEV1 value 53% of predicted. She follows with Dr. Olmstead in our office. She was recently admitted here in January 2022 for a COPD exacerbation and had undergone bronchoscopy with BAL, cultures were negative, she did recover and was doing well at her last appointment 02/24/2022 however the last several days she developed increasing shortness of breath, cough congestion. Chest x-ray reveals no acute pulmonary process. Mild pulmonary fibrosis. No change compared to previous in January 2022. She is seen today in consultation in the emergency department. Currently sitting up on the stretcher. Awake and alert in no acute distress. Maintaining O2 saturations in the 90s on 3 L/m per nasal cannula. She's been afebrile. Hemodynamically stable. White count 17.9. Hemoglobin 15.6. D-dimer 0.21. Sodium 140. Potassium 3.4. BUN 22. Creatinine 0.93. ProBNP 317. Troponin negative 1. She was initiated on Symbicort, DuoNeb inhalations, IV Solu-Medrol. Empiric a ntibiotics in the form of ceftriaxone and azithromycin. Nicoderm patch in place. Heparin for DVT prophylaxis. The patient is seen today 03/17/2022 in follow-up on the regular medical floor. She's currently sitting up in bed. Awake and alert in no acute distress. She is improved. Not quite back to her baseline. She states she does desaturate into the 70s after a walk to the bathroom. She has her own oximeter present. She is currently maintaining O2 saturation on 90s on 3 L/m per nasal cannula. Afebrile. Hemodynamically stable. Sodium 142. Potassium 4.4. BUN 12. Creatinine 0.7. Barnard virus by PCR not detected. Influenza screen negative. She is continued on DuoNeb inhalations, Symbicort, IV Solu-Medrol. Empiric antibiotics in the form of ceftriaxone and azithromycin. Heparin for DVT prophylaxis. NicoDerm patch in place. The patient is seen today 03/18/2022 in follow-up on the regular medical floor. She is currently sitting up in a chair at the bedside. Awake and alert in no acute distress. Feeling back to her baseline. No worsening shortness of breath, cough or congestion. She does qualify for home oxygen. She is continued on Symbicort, DuoNeb inhalations, IV Solu-Medrol. NicoDerm patch in place. Objective - Vital Signs Vital signs: Vital Signs Temp 97.7 F 03/18/22 10:02 Pulse 79 03/18/22 11:49 Resp 16 03/18/22 10:02 BP 150/83 03/18/22 10:02 Pulse Ox 93 L 03/18/22 11:17 FiO2 Intake & Output 03/17/22 03/18/22 03/18/22 18:59 06:59 18:59 Intake Total 450 Balance 450 Intake: Intake, IV Titration 50 Amount cefTRIAXone 2 gm In 50 Sodium Chloride 0.9% 50 ml @ 100 mls/hr IVPB Q24H [facility] Rx#:[id number] Oral 400 Other: # Voids 1 - Exam GENERAL EXAM: Alert, pleasant 52-year-old female, on 3 L nasal cannula, comfortable in no apparent distress. HEAD: Normocephalic. EYES: Normal reaction of pupils, equal size. NOSE: Clear with pink turbinates. THROAT: No erythema or exudates. NECK: No masses, no JVD. CHEST: No chest wall deformity. LUNGS: Equal air entry with faint end expiratory wheeze, diminished CVS: S1 and S2 normal with no audible murmur, regular rhythm. ABDOMEN: No hepatosplenomegaly, normal bowel sounds, no guarding or rigidity. SPINE: No scoliosis or deformity SKIN: No rashes CENTRAL NERVOUS SYSTEM: No focal deficits, tone is normal in all 4 extremities. EXTREMITIES: There is no peripheral edema. No clubbing, no cyanosis. Peripheral pulses are intact. - Labs CBC & Chem 7: 03/16/22 01:00 03/17/22 05:42 Labs: Microbiology - Last 24 Hours (Table) 03/16/22 14:13 Blood Culture - Preliminary Blood No Growth after 24 hours 03/16/22 14:13 Blood Culture - Preliminary Blood No Growth after 24 hours Assessment and Plan Assessment: Acute hypoxemic respiratory failure secondary to an acute exacerbation of chronic obstructive pulmonary disease. No evidence of pneumonia. Pro- calcitonin 0.03. Barnard virus negative. Influenza screen negative. Recent admission for COPD exacerbation status post bronchoscopy with BAL in January 2022, cultures negative Chronic obstructive pulmonary disease with an FEV1 value 53% of predicted. Maintained on Advair, albuterol and DuoNeb inhalations Chronic and ongoing tobacco dependence Hyperlipidemia Gastroesophageal reflux disease Anxiety/depression History of obstructive sleep apnea, not utilizing CPAP, had since lost 80 pounds History of obesity, status post gastric sleeve placement Plan: The patient was seen and evaluated Cleared for discharge from the pulmonary standpoint Does qualify for home oxygen Complete prednisone taper started at 40 mg daily for 4 days Continue her home pulmonary medications Follow up with Dr. Olmstead in 1 week I have personally seen and examined the patient, performed the documentation and the assessment and plan as written. Number of minutes spent on the visit: 10.
[2022-03-18 13:20] VITALS: PULSE 71; RESP 18; TEMP 98
--- NOTE | 2022-03-18 13:36 | P.EN ---
Patient with a history of diabetes mellitus, [id number]. Patient will require a glucometer on discharge and patient will be testing 1 time daily.
--- NOTE | 2022-03-19 00:46 | P.DS ---
Providers Date of admission: 03/16/22 03:52 Attending physician: Humberto Oconnell MD Consults: 03/16/22 03:02 Consult Physician Urgent Consulting Provider: Barrie Olmstead Reason/Comments: pneumonia, COPD Do you want consulting provider notified?: Yes, Notify in am Primary care physician: Stated None Hospital Course: Diagnoses: Acute COPD exacerbation Acute hypoxic respiratory failure, mild Nicotine dependence Diabetes mellitus History of GERD History of obstructive sleep apnea on CPAP machine Hospital course: This is a pleasant 51 years old female with multiple medical problems as below. Presents because of dyspnea since for the last 4-5 days. Associated with little white creamy phlegm and occasional coughing. She has some chest pain with coughing only when severe enough. She is not on home oxygen but she follows up with Dr. Tellez as an outpatient. PCP is Dr. Vlad dominguez but not anymore as she states. She denies abdominal pain vomiting or diarrhea. No urinary symptoms. No headache or dizziness or weakness or numbness She smokes cigarettes and she says she is down to 2 cigarettes per day and she decided to quit. She denies alcohol or illicit drugs Vitals are stable on admission and she is saturating 90% on room air. Currently she has saturation of 94% on 32 oxygen via nasal cannula. Patient is afebrile. Labs showed leukocytosis of 17.9, rest of BMP, INR, CBC and liver enzymes are unremarkable. Troponin negative, proBNP is low. Influenza and covid viruses are undetected. EKG showing sinus rhythm at [address]-T changes Chest x-ray: There is possible pulmonary interstitial mild fibrotic changes. No other structures compared to old exam. No active cardiopulmonary disease In the emergency room patient receives normal saline, steroids and bronchodilator therapy. Also he was given 1 dose of antibiotic. Currently he is on Solu-Medrol 60 mg. 03/17/2022 Patient is significantly improving and she has significantly less wheezing today. At times she gets slightly hypoxic and tachycardic. Patient thinks she needs to send the hospital 1 more day. Other vitals are stable and patient is afebrile Patient currently on Solu-Medrol 60 mg. Antibiotics Stopped today 03/18/2022 Patient COPD significantly improved her oxygen requirement is minimal at 3-4 L/m. Also patient found to qualify for home oxygen Patient feels her dyspnea significantly improved. There is no wheezing on examination, very minimal tachypnea. Patient still feels anxious and she was trying Xanax of complains from limited duration of effect. BuSpar is added for the patient and patient was agreeable to try it. Patient was instructed to follow up outpatient with her PCP and she agrees regarding this. Patient denies chest pain or abdominal or urinary symptoms. No headache or weakness or numbness. No fever. Patient was cleared for discharge by plywood patcher. Patient will be discharged on tapering prednisone Problems and management plan were discussed with the patient and he verbalized understanding and acceptance Patient was found stable and can be discharged home however he needs follow-up as an outpatient. Patient was instructed to follow up with PCP within one week and patient agrees Also patient was instructed to follow up with her plywood patcher Dr. Olmstead in 7- 10 days and she agrees, she asked to make appointments for her. Physical exam Gen: patient is a AAOx3, no distress CVS: S1-S2, RRR, no murmur Lungs: B/L CTA, no wheezing Abdomen: soft, no distention, no tenderness, positive bowel sounds Extremity: no leg edema or induration Time spent more than 35 minutes Patient Condition at Discharge: Fair Plan - Discharge Summary New Discharge Prescriptions: New RX: busPIRone HCl [Buspar] 5 mg PO BID #60 tab RX: predniSONE 10 mg PO DIRECTED #40 tab RX: Famotidine [Pepcid] 20 mg PO BID #60 tab Continue RX: ALPRAZolam [Xanax] 0.5 mg PO BID PRN PRN Reason: Anxiety RX: Atorvastatin [Lipitor] 20 mg PO HS RX: Cyclobenzaprine [Flexeril] 5 mg PO HS PRN PRN Reason: Muscle Pain RX: Montelukast [Singulair] 10 mg PO HS RX: Budesonide-Formot 160-4.5 Mcg [Symbicort 160-4.5 Mcg Inhaler] 2 puff INHALATION RT-BID RX: Ipratropium-Albuterol Nebulize [Duoneb 0.5 mg-3 mg/3 ml Soln] 3 ml INHALATION RT-QID PRN PRN Reason: Shortness Of Breath RX: Bepotastine Besilate 1 drop BOTH EYES DAILY RX: guaiFENesin [Mucinex] 600 mg PO Q12H RX: buPROPion XL [Wellbutrin XL] 150 mg PO DAILY RX: Budesonide 1 mg INHALATION RT-BID RX: Albuterol Sulfate [Ventolin HFA] 2 puff INHALATION RT-Q6H PRN #1 each PRN Reason: Shortness Of Breath Discharge Medication List RX: ALPRAZolam [Xanax] 0.5 mg PO BID PRN 02/16/20 [History] RX: Atorvastatin [Lipitor] 20 mg PO HS 04/18/20 [History] RX: Cyclobenzaprine [Flexeril] 5 mg PO HS PRN 02/15/21 [History] RX: Ipratropium-Albuterol Nebulize [Duoneb 0.5 mg-3 mg/3 ml Soln] 3 ml INHALATION RT-QID PRN 09/06/21 [History] RX: Montelukast [Singulair] 10 mg PO HS 09/06/21 [History] RX: Budesonide-Formot 160-4.5 Mcg [Symbicort 160-4.5 Mcg Inhaler] 2 puff INHALATION RT-BID 02/08/22 [History] RX: Bepotastine Besilate 1 drop BOTH EYES DAILY 03/16/22 [History] RX: Budesonide 1 mg INHALATION RT-BID 03/16/22 [History] RX: buPROPion XL [Wellbutrin XL] 150 mg PO DAILY 03/16/22 [History] RX: guaiFENesin [Mucinex] 600 mg PO Q12H 03/16/22 [History] RX: Albuterol Sulfate [Ventolin HFA] 2 puff INHALATION RT-Q6H PRN #1 each 03/18/22 [Rx] RX: Famotidine [Pepcid] 20 mg PO BID #60 tab 03/18/22 [Rx] RX: busPIRone HCl [Buspar] 5 mg PO BID #60 tab 03/18/22 [Rx] RX: predniSONE 10 mg PO DIRECTED #40 tab 03/18/22 [Rx] Follow up Appointment(s)/Referral(s): Karlie Bertrand MD [REFERRING] - 1 Week (new patient. She will have to call office to set up an appt.) Barrie Olmstead DO [Doctor of Osteopathic Medicine] - 03/31/22 1:00 pm Patient Instructions/Handouts: Famotidine (By mouth), Buspirone (By mouth), Albuterol (By breathing), Prednisone (By mouth), Using Oxygen at Home (DC), COPD (Chronic Obstructive Pulmonary Disease) (DC), Basic Carbohydrate Counting (DC), Hypoxemia (DC) Activity/Diet/Wound Care/Special Instructions: Low carbohydrate diet Activity is restricted until you see your doctor We recommend to contact your medical insurance provider to find a nearby Primary care physician within one week PLEASE CHECK BLOOD SUGAR ONCE A DAY IN THE MORNING BEFORE BREAKFAST AND KEEP RECORD OF RESULTS. TAKE RESULTS WITH YOU TO PHYSICIAN APPOINTMENTS. Discharge/Stand Alone Forms: Work/School Release Discharge Disposition: HOME SELF-CARE
[2022-03-19] MEDS ORDERED: predniSONE 20 MG TAB PO SCH (09:00)
== END 2022-03-18 15:09 | disposition home or self-care (01) | DRG 190 ==
LOC: EC 00:30 → 4SSUR 03:52 → 5NMEDONC 17:50
PROVIDERS: ADMIT Internal Medicine; ATTEND Internal Medicine
DX: J44.1 Chronic obstructive pulmonary disease with (acute) exacerbation (principal); J96.01 Acute respiratory failure with hypoxia; E11.9 Type 2 diabetes mellitus without complications; F32.A Depression, unspecified; J84.10 Pulmonary fibrosis, unspecified; E78.5 Hyperlipidemia, unspecified; E87.6 Hypokalemia; F17.210 Nicotine dependence, cigarettes, uncomplicated; G47.33 Obstructive sleep apnea (adult) (pediatric); K21.9 Gastro-esophageal reflux disease without esophagitis; F41.9 Anxiety disorder, unspecified; Z20.822 Contact with and (suspected) exposure to COVID-19; Z28.310 Unvaccinated for COVID-19; Z98.84 Bariatric surgery status; Z79.899 Other long term (current) drug therapy; Z79.51 Long term (current) use of inhaled steroids; Z88.0 Allergy status to penicillin; Z91.041 Radiographic dye allergy status; Z91.048 Other nonmedicinal substance allergy status; Z91.013 Allergy to seafood
CPT/HCPCS: 36415; 71046; 80048; 80053; 83605; 83735; 83880; 84145; 84484; 85025; 85379; 85610; 87040; 87502; 87635; 93005; 94640; 94760; 96361; 96365; 96366; 96368; 96372; 96375; 96376; 99285

== ENCOUNTER → 2022-04-21 | Outpatient (CLI) | payer OTHER ==
[2022-04-21 18:26] LABS: Basophils # (A) 0.09 X 10*3/uL (0.00-0.10); Basophils % (A) 1.1 %; Eosinophils # (A) 0.19 X 10*3/uL (0.04-0.35); Eosinophils % (A) 2.4 %; HCT 42.6 % (37.2-46.3); HGB 13.4 g/dL (12.0-15.0); Lymphocytes # (A) 1.98 X 10*3/uL (0.90-5.00); Lymphocytes % (A) 24.9 %; MCH 30.1 pg (27.0-32.0); MCHC 31.5 g/dL (32.0-37.0); MCV 95.7 fL (80.0-97.0); Mean Platelet Volume 9.8 fL (9.5-12.2); Monocytes # (A) 0.71 X 10*3/uL (0.20-1.00); Monocytes % (A) 8.9 %; NRBC Per 100 WBC 0 /100 WBCS (0.0-0.0); Neutrophils # (A) 4.89 X 10*3/uL (1.80-7.70); Neutrophils % (A) 61.7 %; Platelet Count 232 X 10*3/uL (140-440); RBC 4.45 X 10*6/uL (4.10-5.20); RDW 13.3 % (11.5-14.5); WBC 7.94 X 10*3/uL (4.50-10.00)
[2022-04-21 20:13] LABS: ALT 22 U/L (8-44); AST 17 U/L (13-35); African American GFR (CKD) 114.6 (60.0-200.0); Albumin 4.2 g/dL (3.8-4.9); Albumin/Globulin Ratio 2.47 (1.60-3.17); Alkaline Phosphatase 98 U/L (41-126); BUN/Creat Ratio 13.71 Ratio (12.00-20.00); Blood Urea Nitrogen 9.6 mg/dL (9.0-27.0); Calcium 9.4 mg/dL (8.7-10.3); Chloride 107 mmol/L (96-109); Chol/HDL Ratio 2.52 Ratio; Globulin 1.7 g/dL (1.6-3.3); Glucose 98 mg/dL (70-110); LDL Cholesterol,Calculated 89.1 mg/dL (0.0-131.0); Non-African American GFR(CKD) 98.9 (60.0-200.0); Potassium 4.9 mmol/L (3.5-5.5); Sodium 143 mmol/L (135-145); Total Protein 5.9 g/dL (6.2-8.2)
== END | disposition home or self-care (01) ==
LOC: LABWHC1 12:25
PROVIDERS: ATTEND Family Medicine
DX: Z00.00 Encounter for general adult medical examination without abnormal findings (principal); E55.9 Vitamin D deficiency, unspecified; E11.9 Type 2 diabetes mellitus without complications
CPT/HCPCS: 36415; 80053; 80061; 82306; 83036; 85025

== ENCOUNTER 2022-08-16 08:06 | Emergency (ER) | payer OTHER ==
[2022-08-16] MEDS ORDERED: IPRATROPIUM 0.5 MG/2.5 ML NEBU INHALATION STA (08:30)
[2022-08-16] MEDS ORDERED: methylPREDNISolone SOD SUCCI 125 MG/2 ML VIAL IV STA (08:30)
[2022-08-16] MEDS ORDERED: ALBUTEROL NEBULIZED 2.5 MG/3 ML INHALATION STA (08:30)
[2022-08-16 09:09] LABS: INR 0.9 (<1.2); Partial Thromboplastin Time 23.2 sec (22.0-30.0); Prothrombin Time 9.4 sec (9.0-12.0)
[2022-08-16 09:12] LABS: ALT 18 U/L (4-34); AST 19 U/L (14-36); African American GFR (CKD) >90 (>60 ml/min/1.73 sqM); Albumin 3.8 g/dL (3.5-5.0); Alkaline Phosphatase 119 U/L (38-126); Anion Gap 6 mmol/L; Blood Urea Nitrogen 15 mg/dL (7-17); Calcium 8.2 mg/dL (8.4-10.2); Carbon Dioxide 26 mmol/L (22-30); Chloride 112 mmol/L (98-107); Glucose 91 mg/dL (74-99); Non-African American GFR(CKD) >90 (>60 ml/min/1.73 sqM); Potassium 3.3 mmol/L (3.5-5.1); Sodium 144 mmol/L (137-145); Total Bilirubin 0.3 mg/dL (0.2-1.3); Total Protein 6.3 g/dL (6.3-8.2)
[2022-08-16 09:14] LABS: HCT 44.5 % (34.0-46.0); HGB 14.7 gm/dL (11.4-16.0); MCH 30.3 pg (25.0-35.0); MCHC 33.1 g/dL (31.0-37.0); MCV 91.7 fL (80.0-100.0); Mean Platelet Volume 7.8; Platelet Count 214 k/uL (150-450); RBC 4.85 m/uL (3.80-5.40); RDW 12.7 % (11.5-15.5); WBC 6.9 k/uL (3.8-10.6)
--- NOTE | 2022-08-16 09:15 | XR ---
EXAMINATION TYPE: XR chest 2V DATE OF EXAM: 08/16/2022 COMPARISON: 03/17/2022, 11/12/2021 HISTORY: 52-year-old female shows of breath, cough, difficulty breathing TECHNIQUE: PA and lateral views FINDINGS: Heart borderline in size. Hyperinflation and interstitial prominence is unchanged. Right-sided aortic arch incidentally noted. No consolidation or pleural effusion. IMPRESSION: Stable exam with borderline cardiomegaly and COPD. No acute process seen.
--- NOTE | 2022-08-16 09:41 | ED ---
General Adult HPI - General Chief complaint: Shortness of Breath Stated complaint: SOB,Wheezing Time Seen by Provider: 08/16/22 08:10 Source: patient, RN notes reviewed, old records reviewed Mode of arrival: ambulatory Limitations: no limitations - History of Present Illness Initial comments: This is a 52-year-old female presents emergency Department complaining of a cough and shortness of breath over the last week she states it is getting aggressively worse per patient is a smoker and continues to smoke. Patient denies any known fever but she states she has had episodes of feeling warm and having chills. Patient states she has a history of asthma and COPD. Patient denies any chest pain or palpitations. Patient denies any abdominal pain lydia ent denies nausea vomiting or diarrhea. Patient denies back pain. Patient denies any dysuria hematuria urinary frequency. - Related Data Home Medications Medication Instructions Recorded Confirmed ALPRAZolam [Xanax] 0.5 mg PO BID PRN 02/16/20 03/16/22 Atorvastatin [Lipitor] 20 mg PO HS 04/18/20 03/16/22 Cyclobenzaprine [Flexeril] 5 mg PO HS PRN 02/15/21 03/16/22 Ipratropium-Albuterol Nebulize 3 ml INHALATION RT-QID PRN 09/06/21 03/16/22 [Duoneb 0.5 mg-3 mg/3 ml Soln] Montelukast [Singulair] 10 mg PO HS 09/06/21 03/16/22 Budesonide-Formot 160-4.5 Mcg 2 puff INHALATION RT-BID 02/08/22 03/16/22 [Symbicort 160-4.5 Mcg Inhaler] Bepotastine Besilate 1 drop BOTH EYES DAILY 03/16/22 03/16/22 Budesonide 1 mg INHALATION RT-BID 03/16/22 03/16/22 buPROPion XL [Wellbutrin XL] 150 mg PO DAILY 03/16/22 03/16/22 guaiFENesin [Mucinex] 600 mg PO Q12H 03/16/22 03/16/22 Previous Rx's Medication Instructions Recorded Albuterol Sulfate [Ventolin HFA] 2 puff INHALATION RT-Q6H PRN #1 03/18/22 each Famotidine [Pepcid] 20 mg PO BID #60 tab 03/18/22 busPIRone HCl [Buspar] 5 mg PO BID #60 tab 03/18/22 predniSONE 10 mg PO DIRECTED #40 tab 03/18/22 Azithromycin [Zithromax Tri-John (3 500 mg PO DAILY 3 Days #3 tab 08/16/22 tabs)] predniSONE [Deltasone] 40 mg PO DAILY #8 tab 08/16/22 Allergies Allergy/AdvReac Type Severity Reaction Status Date / Time Iodinated Contrast Media Allergy Rash/Hives Verified 08/16/22 08:13 Penicillins Allergy Rash/Hives Verified 08/16/22 08:13 pollen extracts Allergy Dyspnea Verified 08/16/22 08:13 shellfish derived [Shellfish] Allergy Anaphylaxis Verified 08/16/22 08:13 Review of Systems ROS Statement: Those systems with pertinent positive or pertinent negative responses have been documented in the HPI. ROS Other: All systems not noted in ROS Statement are negative. Past Medical History Past Medical History: Asthma, COPD, Diabetes Mellitus, Eye Disorder, GERD/Reflux, Pneumonia, Sleep Apnea/CPAP/BIPAP Additional Past Medical History / Comment(s): NIDDM type II(diet controlled following wt. loss), glaucoma bilaterally, tachycardia, AKIRA with CPAP not used the machine since she lost 80 lbs post gastric sleeve, Degenerative disc disease in her back and neck. HX COLITIS. History of rectal diverticulum. 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 History of Any Multi-Drug Resistant Organisms: None Reported Past Surgical History: Bariatric Surgery, Section, Tubal Ligation Additional Past Surgical History / Comment(s): cyst removal under right breast, x 2. gastric sleeve Sx 2016., Colonoscopy 2020. Past Anesthesia/Blood Transfusion Reactions: No Reported Reaction, Motion Sickness Past Psychological History: Anxiety, Depression Smoking Status: Current every day smoker Past Alcohol Use History: None Reported Past Drug Use History: None Reported - Past Family History Mother History Unknown: Yes Family Medical History: Cancer, COPD Additional Family Medical History / Comment(s): Breast cancer. She also has a paternal aunt with breast cancer. Father History Unknown: Yes Family Medical History: COPD, Myocardial Infarction (NH), Vascular Disorder Additional Family Medical History / Comment(s): Father at age 64yrs. General Exam - General Exam Comments Initial Comments: GENERAL: Patient is well-developed and well-nourished. Patient is nontoxic and well- hydrated and is in mild distress. ENT: Neck is soft and supple. No significant lymphadenopathy is noted. Oropharynx is clear. Moist mucous membranes. Neck has full range of motion without eliciting any pain. EYES: The sclera were anicteric and conjunctiva were pink and moist. Extraocular movements were intact and pupils were equal round and reactive to light. Eyelids were unremarkable. PULMONARY: Patient has expiratory wheezing. CARDIOVASCULAR: There is a regular rate and rhythm without any murmurs gallops or rubs. ABDOMEN: Soft and nontender with normal bowel sounds. SKIN: Skin is clear with no lesions or rashes and otherwise unremarkable. NEUROLOGIC: Patient is alert and oriented x3. Cranial nerves II through XII are grossly intact. Motor and sensory are also intact. Normal speech, volume and content. Symmetrical smile. MUSCULOSKELETAL: Normal extremities with adequate strength and full range of motion. No lower extremity swelling or edema. No calf tenderness. LYMPHATICS: No significant lymphadenopathy is noted PSYCHIATRIC: Normal psychiatric evaluation. Limitations: no limitations Course Vital Signs 08/16/22 08/16/22 08:10 10:30 Temperature 98.7 F Pulse Rate 89 79 Respiratory 20 20 Rate Blood Pressure 113/69 129/65 O2 Sat by Pulse 96 96 Oximetry Medical Decision Making - Medical Decision Making EKG was interpreted by myself shows a sinus rhythm at 80 bpm NH interval is on a 46 QRS is 106 QT interval 30 QTC is 347. Patient's EKG shows no ST segment elevation or depression. Was pt. sent in by a medical professional or institution (, PA, MENTAL RETARDATION NURSE, urgent care, hospital, or care home...) When possible be specific @ -No Did you speak to anyone other than the patient for history (EMS, parent, family, police, friend...)? What history was obtained from this source @ -No Did you review nursing and triage notes (agree or disagree)? Why? @ -I reviewed and agree with nursing and triage notes Were old charts reviewed (outside hosp., previous admission, EMS record, old EKG, old radiological studies, urgent care reports/EKG's, care home records)? Report findings @ -Reviewed prior chest x-rays and compared to today. I reviewed prior laboratory studies with the patient's results Differential Diagnosis (chest pain, altered mental status, abdominal pain women, abdominal pain men, vaginal bleeding, weakness, fever, dyspnea, syncope, head ache, dizziness, GI bleed, back pain, seizure, CVA, palpatations, mental health, musculoskeletal)? @ -Differential Dyspnea: Coronary syndrome, arrhythmia, tamponade, asthma, COPD, pulmonary embolism, pneumonia, pneumothorax, pulmonary effusion, anaphylaxis, diabetic ketoacidosis, flailed chest, pulmonary contusion, diaphragmatic rupture, anemia, neuromuscular, this is not meant to be an all-inclusive list. EKG interpreted by me (3pts min.). @ -As above X-rays interpreted by me (1pt min.). @ -Chest x-ray was interpreted by myself as no acute normalities. CT interpreted by me (1pt min.). @ -None done U/S interpreted by me (1pt. min.). @ -None done What testing was considered but not performed or refused? (CT, X-rays, U/S, labs)? Why? @ -None What meds were considered but not given or refused? Why? @ -None Did you discuss the management of the patient with other professionals (professionals i.e. , PA, MENTAL RETARDATION NURSE, lab, RT, psych nurse, social science research assistant, sheriff's sergeant, teacher, corporate trust officer, case management coordinator)? Give summary @ -No Was smoking cessation discussed for >3mins.? @ -Yes Was critical care preformed (if so, how long)? @ -No Were there social determinants of health that impacted care today? How? (Homelessness, low income, unemployed, alcoholism, drug addiction, transportation, low edu. Level, literacy, decrease access to med. care, assisted, rehab)? @ -No Was there de-escalation of care discussed even if they declined (Discuss DNR or withdrawal of care, Hospice)? DNR status @ -No What co-morbidities impacted this encounter? (DM, HTN, Smoking, COPD, CAD, Cancer, CVA, ARF, Chemo, Hep., AIDS, mental health diagnosis, sleep apnea, morbi d obesity)? @ -Smoking, asthma, COPD Was patient admitted / discharged? Hospital course, mention meds given and route, prescriptions, significant lab abnormalities, going to OR and other pertinent info. @ -Patient be discharged home. Patient was given a breathing treatments steroids and Rocephin in the emergency department there was no signs of pneumonia on x-ray but because the patient's difficulty breathing and coughing is gotten progressively worse patient will be placed on antibiotics as an outpatient be given an inhaler as well as steroids. Undiagnosed new problem with uncertain prognosis? @ -No Drug Therapy requiring intensive monitoring for toxicity (Heparin, Nitro, Ins ulin, Cardizem)? @ -No Were any procedures done? @ -No Diagnosis/symptom? @ -Acute bronchitis Acute, or Chronic, or Acute on Chronic? @ -Acute Uncomplicated (without systemic symptoms) or Complicated (systemic symptoms)? @ -Uncomplicated Side effects of treatment? @ -No Exacerbation, Progression, or Severe Exacerbation? @ -No Poses a threat to life or bodily function? How? (Chest pain, USA, NH, pneumonia, PE, COPD, DKA, ARF, appy, cholecystitis, CVA, Diverticulitis, Homicidal, Suicidal, threat to staff... and all critical care pts) @ -No Diagnosis/symptom? @ -COPD exacerbation Acute, or Chronic, or Acute on Chronic? @ -Acute Uncomplicated (without systemic symptoms) or Complicated (systemic symptoms)? @ -Complicated Side effects of treatment? @ -none Exacerbation, Progression, or Severe Exacerbation] @ -no Poses a threat to life or bodily function? @ -Yes this could lead to hypoxia and end organ dysfunction - Lab Data Result diagrams: 08/16/22 08:54 08/16/22 08:54 Lab Results 08/16/22 08/16/22 08/16/22 Range/Units 08:54 08:54 08:54 WBC 6.9 (3.8-10.6) k/uL RBC 4.85 (3.80-5.40) m/uL Hgb 14.7 (11.4-16.0) gm/dL Hct 44.5 (34.0-46.0) % MCV 91.7 (80.0-100.0) fL MCH 30.3 (25.0-35.0) pg MCHC 33.1 (31.0-37.0) g/dL RDW 12.7 (11.5-15.5) % Plt Count 214 (150-450) k/uL MPV 7.8 Neutrophils % (Manual) 59 % Band Neuts % (Manual) 1 % Lymphocytes % (Manual) 29 % Monocytes % (Manual) 11 % Metamyelocytes % 1 % Neutrophils # (Manual) 4.10 (1.3-7.7) k/uL Lymphocytes # (Manual) 2.00 (1.0-4.8) k/uL Monocytes # (Manual) 0.76 (0-1.0) k/uL Metamyelocytes # (Man) 0.07 H (0) k/uL Nucleated RBCs 0 (0-0) /100 WBC Manual Slide Review Performed RBC Morphology Normal PT 9.4 (9.0-12.0) sec INR 0.9 (<1.2) APTT 23.2 (22.0-30.0) sec Sodium 144 (137-145) mmol/L Potassium 3.3 L (3.5-5.1) mmol/L Chloride 112 H (98-107) mmol/L Carbon Dioxide 26 (22-30) mmol/L Anion Gap 6 mmol/L BUN 15 (7-17) mg/dL Creatinine 0.67 (0.52-1.04) mg/dL Est GFR (CKD-EPI)AfAm >90 (>60 ml/min/1.73 sqM) Est GFR (CKD-EPI)NonAf >90 (>60 ml/min/1.73 sqM) Glucose 91 (74-99) mg/dL Plasma Lactic Acid Sesar (0.7-2.0) mmol/L Calcium 8.2 L (8.4-10.2) mg/dL Magnesium 2.0 (1.6-2.3) mg/dL Total Bilirubin 0.3 (0.2-1.3) mg/dL AST 19 (14-36) U/L ALT 18 (4-34) U/L Alkaline Phosphatase 119 (38-126) U/L Troponin I (0.000-0.034) ng/mL Total Protein 6.3 (6.3-8.2) g/dL Albumin 3.8 (3.5-5.0) g/dL Influenza Type A (PCR) (Not Detectd) Influenza Type B (PCR) (Not Detectd) RSV (PCR) (Not Detectd) SARS-CoV-2 (PCR) (Not Detectd) 08/16/22 08/16/22 08/16/22 Range/Units 08:54 08:54 08:54 WBC (3.8-10.6) k/uL RBC (3.80-5.40) m/uL Hgb (11.4-16.0) gm/dL Hct (34.0-46.0) % MCV (80.0-100.0) fL MCH (25.0-35.0) pg MCHC (31.0-37.0) g/dL RDW (11.5-15.5) % Plt Count (150-450) k/uL MPV Neutrophils % (Manual) % Band Neuts % (Manual) % Lymphocytes % (Manual) % Monocytes % (Manual) % Metamyelocytes % % Neutrophils # (Manual) (1.3-7.7) k/uL Lymphocytes # (Manual) (1.0-4.8) k/uL Monocytes # (Manual) (0-1.0) k/uL Metamyelocytes # (Man) (0) k/uL Nucleated RBCs (0-0) /100 WBC Manual Slide Review RBC Morphology PT (9.0-12.0) sec INR (<1.2) APTT (22.0-30.0) sec Sodium (137-145) mmol/L Potassium (3.5-5.1) mmol/L Chloride (98-107) mmol/L Carbon Dioxide (22-30) mmol/L Anion Gap mmol/L BUN (7-17) mg/dL Creatinine (0.52-1.04) mg/dL Est GFR (CKD-EPI)AfAm (>60 ml/min/1.73 sqM) Est GFR (CKD-EPI)NonAf (>60 ml/min/1.73 sqM) Glucose (74-99) mg/dL Plasma Lactic Acid Sesar 0.9 (0.7-2.0) mmol/L Calcium (8.4-10.2) mg/dL Magnesium (1.6-2.3) mg/dL Total Bilirubin (0.2-1.3) mg/dL AST (14-36) U/L ALT (4-34) U/L Alkaline Phosphatase (38-126) U/L Troponin I <0.012 (0.000-0.034) ng/mL Total Protein (6.3-8.2) g/dL Albumin (3.5-5.0) g/dL Influenza Type A (PCR) Not Detected (Not Detectd) Influenza Type B (PCR) Not Detected (Not Detectd) RSV (PCR) Not Detected (Not Detectd) SARS-CoV-2 (PCR) Not Detected (Not Detectd) Disposition Clinical Impression: COPD exacerbation, Acute bronchitis Disposition: HOME SELF-CARE Instructions (If sedation given, give patient instructions): Acute Bronchitis (ED), COPD (Chronic Obstructive Pulmonary Disease) (ED) Prescriptions: predniSONE [Deltasone] 40 mg PO DAILY #8 tab Azithromycin [Zithromax Tri-John (3 tabs)] 500 mg PO DAILY 3 Days #3 tab Is patient prescribed a controlled substance at d/c from ED?: No Referrals: Edilberto Sabillon MD [Primary Care Provider] - 1-2 days Time of Disposition: 10:30
[2022-08-16 10:09] LABS: Band Neutrophils % 1 %; Metamyelocytes # (M) 0.07 k/uL (0); Metamyelocytes % 1 %; Monocytes # (M) 0.76 k/uL (0-1.0); Neutrophils % (M) 59 %; Nucleated Red Blood Cells 0 /100 WBC (0-0); RBC Morphology Normal; Total Cells Counted 200
[2022-08-16] MEDS ORDERED: cefTRIAXone IN SWFI 1,000 MG/10 ML SYRINGE IVP STA (10:15)
[2022-08-16 11:52] VITALS: BP 114/69; PULSE 89; RESP 19; TEMP 98.9
== END 2022-08-16 11:59 | disposition home or self-care (01) ==
LOC: EC 08:06
DX: J44.0 Chronic obstructive pulmonary disease with (acute) lower respiratory infection (principal); J20.9 Acute bronchitis, unspecified; E11.9 Type 2 diabetes mellitus without complications; F32.A Depression, unspecified; F41.9 Anxiety disorder, unspecified; G47.33 Obstructive sleep apnea (adult) (pediatric); K21.9 Gastro-esophageal reflux disease without esophagitis; F17.200 Nicotine dependence, unspecified, uncomplicated; Z79.51 Long term (current) use of inhaled steroids; Z79.52 Long term (current) use of systemic steroids; Z79.899 Other long term (current) drug therapy; Z20.822 Contact with and (suspected) exposure to COVID-19; Z88.0 Allergy status to penicillin; Z91.013 Allergy to seafood; Z88.8 Allergy status to other drugs, medicaments and biological substances
CPT/HCPCS: 36415; 94640; 93005; 80053; 83605; 83735; 84484; 85025; 85610; 85730; 87040; 87636; 71046; 99285; 96374; 96375; J2930; J0696

== ENCOUNTER 2022-08-18 16:09 | Inpatient (IN) | payer OTHER ==
--- NOTE | 2022-08-18 16:18 | ED ---
SOB HPI - General Stated Complaint: COPD Time Seen by Provider: 08/18/22 16:13 Source: patient Mode of arrival: ambulatory Limitations: no limitations - History of Present Illness Initial Comments: This patient is a 52-year-old woman with some underlying asthma/COPD who presents with worsening shortness of breath. The patient noticed that symptoms had started probably for 5 days ago or so. She was having a day or 2 of fevers and cough. She usually does not have an underlying cough. She was seen here on Wednesday, she states she was given prescription for prednisone which she has been taking, 40 mg per day. She states that the breathing seemed to worsen over the course of this afternoon. She has not had fever or chills past couple of days. No chest pain. Cough is largely nonproductive. No change in urination or bowel movements. No pain or swelling in the legs. MD Complaint: shortness of breath, cough -: days(s) Severity scale (1-10): 0 Consistency: constant Improves With: nothing Worsens With: nothing Known History Of: COPD, asthma Associated Symptoms: denies other symptoms Treatments Prior to Arrival: bronchodilator - Related Data Home Medications Medication Instructions Recorded Confirmed Atorvastatin [Lipitor] 20 mg PO HS 04/18/20 08/18/22 Ipratropium-Albuterol Nebulize 3 ml INHALATION RT-QID PRN 09/06/21 08/18/22 [Duoneb 0.5 mg-3 mg/3 ml Soln] Montelukast [Singulair] 10 mg PO HS 09/06/21 08/18/22 Budesonide-Formot 160-4.5 Mcg 2 puff INHALATION RT-BID 02/08/22 08/18/22 [Symbicort 160-4.5 Mcg Inhaler] buPROPion XL [Wellbutrin XL] 150 mg PO DAILY 03/16/22 08/18/22 ALPRAZolam [Xanax] 0.25 mg PO HS 08/18/22 08/18/22 Albuterol Sulfate [Ventolin HFA] 1 - 2 puff INHALATION RT-Q6H PRN 08/18/22 08/18/22 Ipratropium/Albuter 20-100Mcg 1 puff INHALATION RT-QID PRN 08/18/22 08/18/22 [Combivent Respimat 20-100Mcg Inhaler] Previous Rx's Medication Instructions Recorded Famotidine [Pepcid] 20 mg PO BID #60 tab 03/18/22 busPIRone HCl [Buspar] 5 mg PO BID #60 tab 03/18/22 Acetaminophen Tab [Tylenol] 650 mg PO Q4HR PRN tab 08/22/22 Benzonatate [Tessalon Perles] 100 mg PO TID PRN #10 cap 08/22/22 Mupirocin 2% Oint [Bactroban 2% 1 applic TOPICAL TID PRN each 08/22/22 Oint] Nicotine 14Mg/24Hr Patch [Habitrol] 1 patch TRANSDERM DAILY #30 patch 08/22/22 predniSONE 10 mg PO DIRECTED #30 tab 08/22/22 Allergies Allergy/AdvReac Type Severity Reaction Status Date / Time Iodinated Contrast Media Allergy Rash/Hives Verified 08/18/22 17:44 Penicillins Allergy Swelling Verified 08/18/22 17:44 lips pollen extracts Allergy Dyspnea Verified 08/18/22 17:44 shellfish derived [Shellfish] Allergy Anaphylaxis Verified 08/18/22 17:44 Review of Systems ROS Statement: Those systems with pertinent positive or pertinent negative responses have been documented in the HPI. ROS Other: All systems not noted in ROS Statement are negative. Constitutional: Denies: fever, chills Respiratory: Reports: cough, dyspnea, wheezes. Denies: hemoptysis Cardiovascular: Denies: chest pain, palpitations, orthopnea, edema, syncope Gastrointestinal: Denies: abdominal pain, vomiting, diarrhea, melena, hematochezia Genitourinary: Denies: dysuria, hematuria Musculoskeletal: Denies: back pain Skin: Denies: rash Neurological: Denies: headache, weakness Past Medical History Past Medical History: Asthma, COPD, Diabetes Mellitus, Eye Disorder, GERD/Reflux, Pneumonia, Sleep Apnea/CPAP/BIPAP Additional Past Medical History / Comment(s): NIDDM type II(diet controlled following wt. loss), glaucoma bilaterally, tachycardia, AKIRA with CPAP not used the machine since she lost 80 lbs post gastric sleeve, Degenerative disc disease in her back and neck. HX COLITIS. History of rectal diverticulum. 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 History of Any Multi-Drug Resistant Organisms: None Reported Past Surgical History: Bariatric Surgery, Section, Tubal Ligation Additional Past Surgical History / Comment(s): cyst removal under right breast, x 2. gastric sleeve Sx 2016., Colonoscopy 2020. Past Anesthesia/Blood Transfusion Reactions: No Reported Reaction, Motion Sickness Past Psychological History: Anxiety, Depression Smoking Status: Current every day smoker Past Alcohol Use History: None Reported Past Drug Use History: None Reported - Past Family History Mother History Unknown: Yes Family Medical History: Cancer, COPD Additional Family Medical History / Comment(s): Breast cancer. She also has a paternal aunt with breast cancer. Father History Unknown: Yes Family Medical History: COPD, Myocardial Infarction ([place]), Vascular Disorder Additional Family Medical History / Comment(s): Father at age 64yrs. General Exam General appearance: alert, in no apparent distress Head exam: Present: atraumatic, normocephalic Eye exam: Present: normal appearance. Absent: scleral icterus, conjunctival injection Neck exam: Present: normal inspection Respiratory exam: Present: wheezes. Absent: respiratory distress, rales, rhonchi, stridor Cardiovascular Exam: Present: regular rate, normal rhythm, normal heart sounds. Absent: systolic murmur, diastolic murmur, rubs GI/Abdominal exam: Present: soft. Absent: distended, tenderness, guarding, rebound, rigid, mass Extremities exam: Present: normal inspection, normal capillary refill. Absent: pedal edema, calf tenderness Back exam: Present: normal inspection. Absent: CVA tenderness (R), CVA tenderness (L) Neurological exam: Present: alert Skin exam: Present: warm, dry, intact, normal color. Absent: rash Course Vital Signs 08/18/22 08/18/22 08/18/22 16:21 16:40 17:00 Temperature 98.7 F Pulse Rate 90 84 78 Pulse Rate [ Radial] Respiratory 17 16 14 Rate Blood Pressure 121/74 133/70 131/78 Blood Pressure [Right Arm] O2 Sat by Pulse 97 98 99 Oximetry 08/18/22 08/18/22 08/18/22 17:10 17:20 17:30 Temperature Pulse Rate 74 77 76 Pulse Rate [ Radial] Respiratory 16 14 14 Rate Blood Pressure 120/64 115/75 115/75 Blood Pressure [Right Arm] O2 Sat by Pulse 99 99 99 Oximetry 08/18/22 08/18/2208/18/23 17:45 18:00 18:46 Temperature Pulse Rate 76 71 68 Pulse Rate [ Radial] Respiratory 14 14 Rate Blood Pressure 126/66 115/65 Blood Pressure [Right Arm] O2 Sat by Pulse 98 99 Oximetry 08/18/22 08/18/22 08/18/22 19:01 20:16 20:32 Temperature Pulse Rate 64 70 85 Pulse Rate [ Radial] Respiratory Rate Blood Pressure Blood Pressure [Right Arm] O2 Sat by Pulse Oximetry 08/18/22 08/18/22 08/19/22 23:05 23:13 02:10 Temperature 98.2 F 98.0 F Pulse Rate 72 74 66 Pulse Rate [ Radial] Respiratory 17 18 17 Rate Blood Pressure 102/50 119/58 146/76 Blood Pressure [Right Arm] O2 Sat by Pulse 98 99 98 Oximetry 08/19/22 08/19/22 08/19/22 03:33 04:05 05:10 Temperature Pulse Rate 78 67 59 L Pulse Rate [ Radial] Respiratory 17 17 18 Rate Blood Pressure 121/78 138/76 134/62 Blood Pressure [Right Arm] O2 Sat by Pulse 96 97 97 Oximetry 08/19/22 08/19/22 06:30 07:00 Temperature 97.7 F Pulse Rate 83 Pulse Rate [ 62 Radial] Respiratory 18 18 Rate Blood Pressure 143/86 Blood Pressure 151/81 [Right Arm] O2 Sat by Pulse 97 98 Oximetry Medical Decision Making - Medical Decision Making This patient is 52-year-old woman with some underlying COPD who presents to have evaluation and treatment for dyspnea. The workup includes a chest x-ray that I interpreted as not showing acute infiltrate, pneumothorax, CHF. There is underlying COPD. The patient continues to have dyspnea after treatment here and will therefore be admitted to have further treatment and pulmonology consultation. Was pt. sent in by a medical professional or institution (, PA, BOTTLING ATTENDANT, urgent care, hospital, or long term...) When possible be specific @ -[No] Did you speak to anyone other than the patient for history (EMS, parent, family, police, friend...)? What history was obtained from this source @ -[No] Did you review nursing and triage notes (agree or disagree)? Why? @ -[I reviewed and agree with nursing and triage notes] Were old charts reviewed (outside hosp., previous admission, EMS record, old EKG, old radiological studies, urgent care reports/EKG's, long term records)? Report findings @ -[No old charts were reviewed] Differential Diagnosis (chest pain, altered mental status, abdominal pain women, abdominal pain men, vaginal bleeding, weakness, fever, dyspnea, syncope, headache, dizziness, GI bleed, back pain, seizure, CVA, palpatations, mental health, musculoskeletal)? @ -[Differential Dyspnea: Coronary syndrome, arrhythmia, tamponade, asthma, COPD, pulmonary embolism, pneumonia, pneumothorax, pulmonary effusion, anaphylaxis, diabetic ketoacidosis, flailed chest, pulmonary contusion, diaphragmatic rupture, anemia, neuromuscular, this is not meant to be an all-inclusive list. EKG interpreted by me (3pts min.). @ -[As above] X-rays interpreted by me (1pt min.). @ -[As above CT interpreted by me (1pt min.). @ -[None done] U/S interpreted by me (1pt. min.). @ -[None done] What testing was considered but not performed or refused? (CT, X-rays, U/S, labs)? Why? @ -[None] What meds were considered but not given or refused? Why? @ -[None] Did you discuss the management of the patient with other professionals (chhaya davalos i.e. , PA, BOTTLING ATTENDANT, lab, RT, psych nurse, sr. social media & mobile manager, fitting room attendant, teacher, geographic area intelligence officer, case mgr)? Give summary @ -[Admitting physician Was smoking cessation discussed for >3mins.? @ -[No] Was critical care preformed (if so, how long)? @ -[No] Were there social determinants of health that impacted care today? How? (Homelessness, low income, unemployed, alcoholism, drug addiction, transportation, low edu. Level, literacy, decrease access to med. care, usp, rehab)? @ -[No] Was there de-escalation of care discussed even if they declined (Discuss DNR or withdrawal of care, Hospice)? DNR status @ -[No] What co-morbidities impacted this encounter? (DM, HTN, Smoking, COPD, CAD, Cancer, CVA, ARF, Chemo, Hep., AIDS, mental health diagnosis, sleep apnea, morbid obesity)? @ -[None] Was patient admitted / discharged? Hospital course, mention meds given and rout e, prescriptions, significant lab abnormalities, going to OR and other pertinent info. @ -[The patient is admitted to the hospital to have further steroid treatments and inhaled medication as well as pulmonology consultation problem with uncertain prognosis? @ -[No] Drug Therapy requiring intensive monitoring for toxicity (Heparin, Nitro, Insulin, Cardizem)? @ -[No] Were any procedures done? @ -[No] Diagnosis/symptom? @ -[Acute exacerbation of COPD Acute, or Chronic, or Acute on Chronic? @ -[acute on chronic Uncomplicated (without systemic symptoms) or Complicated (systemic symptoms)? @ -[uncomplicated Side effects of treatment? @ -[No] Exacerbation, Progression, or Severe Exacerbation? @ -[No] Poses a threat to life or bodily function? How? (Chest pain, [place], [place], pneumonia, PE, COPD, DKA, ARF, appy, cholecystitis, CVA, Diverticulitis, Homicidal, Suicidal, threat to staff... and all critical care pts) @ -[yes - Lab Data Result diagrams: 08/18/22 16:26 08/18/22 16:26 Lab Results 08/18/22 08/18/22 08/18/22 Range/Units 16:26 16:26 16:26 WBC 6.6 (3.8-10.6) k/uL RBC 5.07 (3.80-5.40) m/uL Hgb 14.9 (11.4-16.0) gm/dL Hct 47.2 H (34.0-46.0) % MCV 93.2 (80.0-100.0) fL MCH 29.5 (25.0-35.0) pg MCHC 31.6 (31.0-37.0) g/dL RDW 12.7 (11.5-15.5) % Plt Count 248 (150-450) k/uL MPV 7.9 Neutrophils % 73 % Lymphocytes % 19 % Monocytes % 5 % Eosinophils % 0 % Basophils % 0 % Neutrophils # 4.8 (1.3-7.7) k/uL Lymphocytes # 1.3 (1.0-4.8) k/uL Monocytes # 0.3 (0-1.0) k/uL Eosinophils # 0.0 (0-0.7) k/uL Basophils # 0.0 (0-0.2) k/uL PT 9.6 (9.0-12.0) sec INR 0.9 (<1.2) APTT 21.7 L (22.0-30.0) sec D-Dimer 0.26 (<0.60) mg/L FEU Sodium 140 (137-145) mmol/L Potassium 3.8 (3.5-5.1) mmol/L Chloride 103 (98-107) mmol/L Carbon Dioxide 32 H (22-30) mmol/L Anion Gap 5 mmol/L BUN 9 (7-17) mg/dL Creatinine 0.55 (0.52-1.04) mg/dL Est GFR (CKD-EPI)AfAm >90 (>60 ml/min/1.73 sqM) Est GFR (CKD-EPI)NonAf >90 (>60 ml/min/1.73 sqM) Glucose 144 H (74-99) mg/dL POC Glucose (mg/dL) (70-110) mg/dL POC Glu Juice Tester ID Estimated Ave Glu mg/dL Hemoglobin A1c (0.0-6.0) % Lactic Ac Sepsis Rflx Plasma Lactic Acid Sesar (0.7-2.0) mmol/L Calcium 8.6 (8.4-10.2) mg/dL Total Bilirubin 0.7 (0.2-1.3) mg/dL AST 23 (14-36) U/L ALT 22 (4-34) U/L Alkaline Phosphatase 107 (38-126) U/L Troponin I (0.000-0.034) ng/mL NT-Pro-B Natriuret Pep pg/mL Total Protein 6.4 (6.3-8.2) g/dL Albumin 3.9 (3.5-5.0) g/dL Coronavirus (PCR) (Not Detectd) 08/18/22 08/18/22 08/18/22 Range/Units 16:26 16:26 16:26 WBC (3.8-10.6) k/uL RBC (3.80-5.40) m/uL Hgb (11.4-16.0) gm/dL Hct (34.0-46.0) % MCV (80.0-100.0) fL MCH (25.0-35.0) pg MCHC (31.0-37.0) g/dL RDW (11.5-15.5) % Plt Count (150-450) k/uL MPV Neutrophils % % Lymphocytes % % Monocytes % % Eosinophils % % Basophils % % Neutrophils # (1.3-7.7) k/uL Lymphocytes # (1.0-4.8) k/uL Monocytes # (0-1.0) k/uL Eosinophils # (0-0.7) k/uL Basophils # (0-0.2) k/uL PT (9.0-12.0) sec INR (<1.2) APTT (22.0-30.0) sec D-Dimer (<0.60) mg/L FEU Sodium (137-145) mmol/L Potassium (3.5-5.1) mmol/L Chloride (98-107) mmol/L Carbon Dioxide (22-30) mmol/L Anion Gap mmol/L BUN (7-17) mg/dL Creatinine (0.52-1.04) mg/dL Est GFR (CKD-EPI)AfAm (>60 ml/min/1.73 sqM) Est GFR (CKD-EPI)NonAf (>60 ml/min/1.73 sqM) Glucose (74-99) mg/dL POC Glucose (mg/dL) (70-110) mg/dL POC Glu Juice Tester ID Estimated Ave Glu mg/dL Hemoglobin A1c (0.0-6.0) % Lactic Ac Sepsis Rflx Plasma Lactic Acid Sesar 2.2 H* (0.7-2.0) mmol/L Calcium (8.4-10.2) mg/dL Total Bilirubin (0.2-1.3) mg/dL AST (14-36) U/L ALT (4-34) U/L Alkaline Phosphatase (38-126) U/L Troponin I <0.012 (0.000-0.034) ng/mL NT-Pro-B Natriuret Pep 460 pg/mL Total Protein (6.3-8.2) g/dL Albumin (3.5-5.0) g/dL Coronavirus (PCR) (Not Detectd) 08/18/22 08/18/22 08/18/22 Range/Units 16:26 17:04 17:15 WBC (3.8-10.6) k/uL RBC (3.80-5.40) m/uL Hgb (11.4-16.0) gm/dL Hct (34.0-46.0) % MCV (80.0-100.0) fL MCH (25.0-35.0) pg MCHC (31.0-37.0) g/dL RDW (11.5-15.5) % Plt Count (150-450) k/uL MPV Neutrophils % % Lymphocytes % % Monocytes % % Eosinophils % % Basophils % % Neutrophils # (1.3-7.7) k/uL Lymphocytes # (1.0-4.8) k/uL Monocytes # (0-1.0) k/uL Eosinophils # (0-0.7) k/uL Basophils # (0-0.2) k/uL PT (9.0-12.0) sec INR (<1.2) APTT (22.0-30.0) sec D-Dimer (<0.60) mg/L FEU Sodium (137-145) mmol/L Potassium (3.5-5.1) mmol/L Chloride (98-107) mmol/L Carbon Dioxide (22-30) mmol/L Anion Gap mmol/L BUN (7-17) mg/dL Creatinine (0.52-1.04) mg/dL Est GFR (CKD-EPI)AfAm (>60 ml/min/1.73 sqM) Est GFR (CKD-EPI)NonAf (>60 ml/min/1.73 sqM) Glucose (74-99) mg/dL POC Glucose (mg/dL) (70-110) mg/dL POC Glu Juice Tester ID Estimated Ave Glu mg/dL 118 Hemoglobin A1c 5.7 (0.0-6.0) % Lactic Ac Sepsis Rflx Y Plasma Lactic Acid Sesar (0.7-2.0) mmol/L Calcium (8.4-10.2) mg/dL Total Bilirubin (0.2-1.3) mg/dL AST (14-36) U/L ALT (4-34) U/L Alkaline Phosphatase (38-126) U/L Troponin I (0.000-0.034) ng/mL NT-Pro-B Natriuret Pep pg/mL Total Protein (6.3-8.2) g/dL Albumin (3.5-5.0) g/dL Coronavirus (PCR) Not Detected (Not Detectd) 08/18/22 08/19/22 08/19/22 Range/Units 20:19 11:37 16:51 WBC (3.8-10.6) k/uL RBC (3.80-5.40) m/uL Hgb (11.4-16.0) gm/dL Hct (34.0-46.0) % MCV (80.0-100.0) fL MCH (25.0-35.0) pg MCHC (31.0-37.0) g/dL RDW (11.5-15.5) % Plt Count (150-450) k/uL MPV Neutrophils % % Lymphocytes % % Monocytes % % Eosinophils % % Basophils % % Neutrophils # (1.3-7.7) k/uL Lymphocytes # (1.0-4.8) k/uL Monocytes # (0-1.0) k/uL Eosinophils # (0-0.7) k/uL Basophils # (0-0.2) k/uL PT (9.0-12.0) sec INR (<1.2) APTT (22.0-30.0) sec D-Dimer (<0.60) mg/L FEU Sodium (137-145) mmol/L Potassium (3.5-5.1) mmol/L Chloride (98-107) mmol/L Carbon Dioxide (22-30) mmol/L Anion Gap mmol/L BUN (7-17) mg/dL Creatinine (0.52-1.04) mg/dL Est GFR (CKD-EPI)AfAm (>60 ml/min/1.73 sqM) Est GFR (CKD-EPI)NonAf (>60 ml/min/1.73 sqM) Glucose (74-99) mg/dL POC Glucose (mg/dL) 203 H 134 H (70-110) mg/dL POC Glu Juice Tester [address] Est[address] Glu mg/dL Hemoglobin A1c (0.0-6.0) % Lactic Ac Sepsis Rflx Plasma Lactic Acid Sesar 1.5 (0.7-2.0) mmol/L Calcium (8.4-10.2) mg/dL Total Bilirubin (0.2-1.3) mg/dL AST (14-36) U/L ALT (4-34) U/L Alkaline Phosphatase (38-126) U/L Troponin I (0.000-0.034) ng/mL NT-Pro-B Natriuret Pep pg/mL Total Protein (6.3-8.2) g/dL Albumin (3.5-5.0) g/dL Coronavirus (PCR) (Not Detectd) 08/19/22 08/20/22 Range/Units 20:40 06:42 WBC (3.8-10.6) k/uL RBC (3.80-5.40) m/uL Hgb (11.4-16.0) gm/dL Hct (34.0-46.0) % MCV (80.0-100.0) fL MCH (25.0-35.0) pg MCHC (31.0-37.0) g/dL RDW (11.5-15.5) % Plt Count (150-450) k/uL MPV Neutrophils % % Lymphocytes % % Monocytes % % Eosinophils % % Basophils % % Neutrophils # (1.3-7.7) k/uL Lymphocytes # (1.0-4.8) k/uL Monocytes # (0-1.0) k/uL Eosinophils # (0-0.7) k/uL Basophils # (0-0.2) k/uL PT (9.0-12.0) sec INR (<1.2) APTT (22.0-30.0) sec D-Dimer (<0.60) mg/L FEU Sodium (137-145) mmol/L Potassium (3.5-5.1) mmol/L Chloride (98-107) mmol/L Carbon Dioxide (22-30) mmol/L Anion Gap mmol/L BUN (7-17) mg/dL Creatinine (0.52-1.04) mg/dL Est GFR (CKD-EPI)AfAm (>60 ml/min/1.73 sqM) Est GFR (CKD-EPI)NonAf (>60 ml/min/1.73 sqM) Glucose (74-99) mg/dL POC Glucose (mg/dL) 211 H 127 H (70-110) mg/dL POC Glu Juice Tester [address] Glu mg/dL Hemoglobin A1c (0.0-6.0) % Lactic Ac Sepsis Rflx Plasma Lactic Acid Sesar (0.7-2.0) mmol/L Calcium (8.4-10.2) mg/dL Total Bilirubin (0.2-1.3) mg/dL AST (14-36) U/L ALT (4-34) U/L Alkaline Phosphatase (38-126) U/L Troponin I (0.000-0.034) ng/mL NT-Pro-B Natriuret Pep pg/mL Total Protein (6.3-8.2) g/dL Albumin (3.5-5.0) g/dL Coronavirus (PCR) (Not Detectd) - EKG Data -: EKG Interpreted by [facility] EKG shows normal: sinus rhythm, axis (Left axis deviation), intervals (Normal), QRS complexes (Incomplete right bundle branch block pattern) Rate: tachycardia (Rate 101 bpm) Interpretation: other (There is a pulmonary disease pattern) Disposition Clinical Impression: COPD exacerbation Disposition: ADMITTED IP TO THIS HOSP Condition: Good Is patient prescribed a controlled substance at d/c from ED?: No
[2022-08-18 16:55] LABS: Basophils % (A) 0 %; Eosinophils % (A) 0 %; HCT 47.2 % (34.0-46.0); HGB 14.9 gm/dL (11.4-16.0); Lymphocytes # (A) 1.3 k/uL (1.0-4.8); Lymphocytes % (A) 19 %; MCH 29.5 pg (25.0-35.0); MCHC 31.6 g/dL (31.0-37.0); MCV 93.2 fL (80.0-100.0); Mean Platelet Volume 7.9; Monocytes # (A) 0.3 k/uL (0-1.0); Monocytes % (A) 5 %; Neutrophils # (A) 4.8 k/uL (1.3-7.7); Neutrophils % (A) 73 %; Platelet Count 248 k/uL (150-450); RBC 5.07 m/uL (3.80-5.40); RDW 12.7 % (11.5-15.5); WBC 6.6 k/uL (3.8-10.6)
[2022-08-18 17:12] LABS: ALT 22 U/L (4-34); AST 23 U/L (14-36); African American GFR (CKD) >90 (>60 ml/min/1.73 sqM); Albumin 3.9 g/dL (3.5-5.0); Alkaline Phosphatase 107 U/L (38-126); Anion Gap 5 mmol/L; Blood Urea Nitrogen 9 mg/dL (7-17); Calcium 8.6 mg/dL (8.4-10.2); Carbon Dioxide 32 mmol/L (22-30); Chloride 103 mmol/L (98-107); Glucose 144 mg/dL (74-99); Non-African American GFR(CKD) >90 (>60 ml/min/1.73 sqM); Potassium 3.8 mmol/L (3.5-5.1); Sodium 140 mmol/L (137-145); Total Bilirubin 0.7 mg/dL (0.2-1.3); Total Protein 6.4 g/dL (6.3-8.2)
--- NOTE | 2022-08-18 17:12 | XR ---
EXAMINATION TYPE: XR chest 2V DATE OF EXAM: 08/18/2022 5:00 PM COMPARISON: Chest radiographs from 08/16/2022 TECHNIQUE: XR chest 2V Frontal and lateral views of the chest. CLINICAL INDICATION:Female, 52 years old with history of difficulty breathing; FINDINGS: Lungs/Pleura: There is flattening of the diaphragm with increased lucency of the lungs. No evidence o f pneumothorax, pleural effusion or focal consolidation. Pulmonary vascularity: Unremarkable. Heart/mediastinum: Cardiomediastinal silhouette is enlarged and stable. Musculoskeletal: No acute osseous pathology. IMPRESSION: 1. No acute cardiopulmonary disease process. 2. COPD changes.
[2022-08-18 17:22] LABS: INR 0.9 (<1.2); Prothrombin Time 9.6 sec (9.0-12.0)
[2022-08-18 17:24] LABS: Partial Thromboplastin Time 21.7 sec (22.0-30.0)
[2022-08-18] MEDS ORDERED: IPRATROPIUM-ALBUTEROL 3 ML NEB INHALATION STA (18:31)
[2022-08-18] MEDS ORDERED: ALBUTEROL NEBULIZED 2.5 MG/3 ML INHALATION STA (18:31)
[2022-08-18] MEDS ORDERED: AZITHROMYCIN 500 MG TAB PO STA (19:23)
[2022-08-18] MEDS ORDERED: ACETAMINOPHEN TAB 325 MG TAB PO PRN (19:34)
[2022-08-18] MEDS ORDERED: NALOXONE 0.4 MG/ML 1 ML VIAL IVP PRN (19:34)
[2022-08-18] MEDS ORDERED: IPRATROPIUM-ALBUTEROL 3 ML NEB INHALATION SCH (20:00)
[2022-08-18] MEDS: ALBUTEROL NEBULIZED 2.5 MG/3 ML INHALATION SCH (20:15)
[2022-08-18] MEDS: IPRATROPIUM 0.5 MG/2.5 ML NEBU INHALATION SCH (20:15)
[2022-08-18] MEDS: SYMBICORT 160-4.5 MCG INHALER INHALATION SCH (20:15)
[2022-08-18] MEDS: ATORVASTATIN 20 MG TAB PO SCH (20:54)
[2022-08-18] MEDS: FAMOTIDINE 20 MG TAB PO SCH (20:54)
[2022-08-18] MEDS: MONTELUKAST 10 MG TAB PO SCH (20:54)
[2022-08-18] MEDS: ALPRAZolam 0.25 MG TAB PO SCH (20:54)
[2022-08-18] MEDS: busPIRone HCl 5 MG TAB PO SCH (22:27)
[2022-08-18] MEDS: methylPREDNISolone SOD SUCCI 125 MG/2 ML VIAL IV SCH (23:08)
[2022-08-19] MEDS: methylPREDNISolone SOD SUCCI 125 MG/2 ML VIAL IV SCH ×4 (06:38→23:06)
[2022-08-19] MEDS ORDERED: ALBUTEROL NEBULIZED 2.5 MG/3 ML INHALATION PRN (07:22)
[2022-08-19] MEDS ORDERED: ALBUTEROL HFA INHALER INHALATION PRN (07:22)
[2022-08-19] MEDS ORDERED: IPRATROPIUM 0.5 MG/2.5 ML NEBU INHALATION PRN (07:25)
[2022-08-19] MEDS: ALBUTEROL NEBULIZED 2.5 MG/3 ML INHALATION SCH ×4 (08:44→19:16)
[2022-08-19] MEDS: IPRATROPIUM 0.5 MG/2.5 ML NEBU INHALATION SCH ×4 (08:44→19:17)
[2022-08-19] MEDS: SYMBICORT 160-4.5 MCG INHALER INHALATION SCH ×2 (08:44→19:17)
[2022-08-19] MEDS: HEPARIN SODIUM,PORCINE/PF 5,000 UNIT/0.5 ML SYRINGE SQ SCH ×2 (09:18→20:14)
[2022-08-19] MEDS: AZITHROMYCIN 500 MG TAB PO SCH (09:18)
[2022-08-19] MEDS: buPROPion XL 150 MG TAB.ER.24H PO SCH (09:18)
[2022-08-19] MEDS: FAMOTIDINE 20 MG TAB PO SCH ×2 (09:18→20:14)
[2022-08-19] MEDS: busPIRone HCl 5 MG TAB PO SCH ×2 (09:18→20:14)
--- NOTE | 2022-08-19 10:32 | P.HPIM ---
History of Present Illness This is a pleasant 52 years old female with multiple medical problems including COPD/asthma, diabetes mellitus, GERD, sleep apnea with CPAP machine, chronic low back pain and degenerative disc disease, anxiety and depression Nicotine dependence to smoke about half Pack to pack one-day she states she quit about 5 days ago. She presents because of progressive dyspnea for more than a week inserted with cough and the total clamp She is having a chest pain and a little abdominal discomfort with coughing only. Total diarrhea but no vomiting, no urinary symptoms, and the total headache but no dizziness weakness or numbness. She denies alcohol or illicit drugs. She is on 1-2 L of oxygen at home as needed. PCP is Dr. Sabillon and glassware finisher is Dr. Brown Presents because of dyspnea and hypoxia and she was found saturating 78% on room air on admission, Currently she is saturating 97% on 4 L, afebrile. Labs reveal she has unremarkable CBC, INR, BMP and liver enzymes and troponin and BNP. D-dimer is negative at 0.26. Coronal virus not detected. Chest x-ray showing clear lungs, COPD changes with hyperinflated chest EKG showed sinus tachycardia [address]-T changes patient received Zithromax and Solu-Medrol and emergency room Review of Systems Review of systems CONSTITUTIONAL: No fever, no malaise, no fatigue. HEENT: No recent visual problems or hearing problems. Denied any sore throat. CARDIOVASCULAR: No orthopnea, PND, no palpitations, no syncope. PULMONARY: No chest wall tenderness, no hemoptysis. GASTROINTESTINAL: No diarrhea, no nausea, no vomiting, no abdominal pain. Normoactive bowel sounds. NEUROLOGICAL: No headaches, no weakness, no numbness. HEMATOLOGICAL: Denies any bleeding or petechiae. GENITOURINARY: Denies any burning micturition, frequency, or urgency. MUSCULOSKELETAL/RHEUMATOLOGICAL: Denies any joint pain, swelling, or any muscle pain. ENDOCRINE: Denies any polyuria or polydipsia. Past Medical History Past Medical History: Asthma, COPD, Diabetes Mellitus, Eye Disorder, GERD/Reflux, Pneumonia, Sleep Apnea/CPAP/BIPAP Additional Past Medical History / Comment(s): NIDDM type II(diet controlled following wt. loss), glaucoma bilaterally, tachycardia, AKIRA with CPAP not used the machine since she lost 80 lbs post gastric sleeve, Degenerative disc disease in her back and neck. HX COLITIS. History of rectal diverticulum. 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 History of Any Multi-Drug Resistant Organisms: None Reported Past Surgical History: Bariatric Surgery, Section, Tubal Ligation Additional Past Surgical History / Comment(s): cyst removal under right breast, x 2. gastric sleeve Sx 2016., Colonoscopy 2020. Past Anesthesia/Blood Transfusion Reactions: No Reported Reaction, Motion Sickness Past Psychological History: Anxiety, Depression Smoking Status: Current every day smoker Past Alcohol Use History: None Reported Past Drug Use History: None Reported - Past Family History Mother History Unknown: Yes Family Medical History: Cancer, COPD Additional Family Medical History / Comment(s): Breast cancer. She also has a paternal aunt with breast cancer. Father History Unknown: Yes Family Medical History: COPD, Myocardial Infarction ([place]), Vascular Disorder Additional Family Medical History / Comment(s): Father at age 64yrs. Medications and Allergies Home Medications Medication Instructions Recorded Confirmed Type RX: Atorvastatin [Lipitor] 20 mg PO HS 04/18/20 08/18/22 History RX: Ipratropium-Albuterol Nebulize 3 ml INHALATION RT-QID PRN 09/06/21 08/18/22 History [Duoneb 0.5 mg-3 mg/3 ml Soln] RX: Montelukast [Singulair] 10 mg PO HS 09/06/21 08/18/22 History RX: Budesonide-Formot 160-4.5 Mcg 2 puff INHALATION RT-BID 02/08/22 08/18/22 History [Symbicort 160-4.5 Mcg Inhaler] RX: buPROPion XL [Wellbutrin XL] 150 mg PO DAILY 03/16/22 08/18/22 History RX: Famotidine [Pepcid] 20 mg PO BID #60 tab 03/18/22 08/18/22 Rx RX: busPIRone HCl [Buspar] 5 mg PO BID #60 tab 03/18/22 08/18/22 Rx RX: predniSONE [Deltasone] 40 mg PO DAILY #8 tab 08/16/22 08/18/22 Rx ALPRAZolam [Xanax] 0.25 mg PO HS 08/18/22 08/18/22 History Azithromycin [Zithromax] 500 mg PO DAILY 08/18/22 08/18/22 History Ipratropium/Albuter 20-100Mcg 1 puff INHALATION RT-QID PRN 08/18/22 08/18/22 History [Combivent Respimat 20-100Mcg Inhaler] RX: Albuterol Sulfate [Ventolin 1 - 2 puff INHALATION RT-Q6H PRN 08/18/22 08/18/22 History HFA] Allergies Allergy/AdvReac Type Severity Reaction Status Date / Time Iodinated Contrast Media Allergy Rash/Hives Verified 08/18/22 17:44 Penicillins Allergy Swelling Verified 08/18/22 17:44 lips pollen extracts Allergy Dyspnea Verified 08/18/22 17:44 shellfish derived [Shellfish] Allergy Anaphylaxis Verified 08/18/22 17:44 Physical Exam Vitals: Vital Signs Temp Pulse Resp BP Pulse Ox 08/19/22 06:30 83 18 143/86 97 08/19/22 05:10 59 L 18 134/62 97 08/19/22 04:05 67 17 138/76 97 08/19/22 03:33 78 17 121/78 96 08/19/22 02:10 98.0 F 66 17 146/76 98 08/18/22 23:13 98.2 F 74 18 119/58 99 08/18/22 23:05 72 17 102/50 98 08/18/22 20:32 85 08/18/22 20:16 70 08/18/22 19:01 64 08/18/22 18:46 68 08/18/22 18:00 71 14 115/65 99 08/18/22 17:45 76 14 126/66 98 08/18/22 17:30 76 14 115/75 99 08/18/22 17:20 77 14 115/75 99 08/18/22 17:10 74 16 120/64 99 08/18/22 17:00 78 14 131/78 99 08/18/22 16:40 84 16 133/70 98 08/18/22 16:21 98.7 F 90 17 121/74 97 Intake and Output 08/18/22 08/19/22 08/19/22 22:59 06:59 14:59 Other: Weight 66.224 kg GENERAL: The patient is alert and oriented x3, not in any acute distress. Well developed, well nourished. HEENT: Pupils are round and equally reacting to light. EOMI. No scleral icterus. No conjunctival pallor. Normocephalic, atraumatic. No pharyngeal erythema. No thyromegaly. CARDIOVASCULAR: S1 and S2 present. No murmurs, rubs, or gallops. -PULMONARY: Chest is clear to auscultation, no crackles. Bilateral expiratory wheezing ABDOMEN: Soft, nontender, nondistended, normoactive bowel sounds. No palpable organomegaly. MUSCULOSKELETAL: No joint swelling or deformity. EXTREMITIES: No cyanosis, clubbing, or pedal edema. NEUROLOGICAL: Gross neurological examination did not reveal any focal deficits. SKIN: No rashes. no petechiae. Results CBC & Chem 7: 08/18/22 16:08/18/22 16:26 Labs: Abnormal Lab Results - Last 24 Hours (Table) 08/18/22 08/18/22 08/18/22 Range/Units 16:26 16: 16:26 Hct 47.2 H (34.0-46.0) % APTT 21.7 L (22.0-30.0) sec Carbon Dioxide 32 H (22-30) mmol/L Glucose 144 H (74-99) mg/dL Plasma Lactic Acid Sesar (0.7-2.0) mmol/L 08/18/22 Range/Units 16:26 Hct (34.0-46.0) % APTT (22.0-30.0) sec Carbon Dioxide (22-30) mmol/L Glucose (74-99) mg/dL Plasma Lactic Acid Sesar 2.2 H* (0.7-2.0) mmol/L Assessment and Plan Assessment: Acute COPD exacerbation. Acute hypoxic respiratory failure Nicotine dependence Diabetes mellitus History of GERD. History of sleep apnea on CPAP machine Chronic back pain and degenerative disc disease Exactly and depression, not an active issue Plan: Continue with steroids Continue with a bronchodilator, Zithromax short oral course pulmonary consult Labs and medication were reviewed.. Continue same treatment. Continue with symptomatic treatment. Resume home medication. Monitor labs and vitals. DVT and GI prophylaxis. Further recommendations as per clinical course of the patient DVT prophylaxis: Subcutaneous heparin GI Prophylaxis: Pepcid Prognosis is guarded
[2022-08-19 11:49] LABS: Glucose,Whole Blood 203 mg/dL (70-110)
--- NOTE | 2022-08-19 11:53 | P.CNPUL ---
History of Present Illness Consult date: 08/19/22 Requesting physician: Rosales E Lauren Reason for consult: dyspnea, COPD Chief complaint: Shortness of breath, cough, congestion History of present illness: This is a very pleasant 52-year-old female patient with a known history of hyperlipidemia, diabetes mellitus, gastroesophageal reflux disease, previous obesity status post gastric sleeve and was able to be off CPAP for obstructive sleep apnea, chronic and ongoing tobacco dependence, chronic obstructive pulmonary disease with an FEV1 value 53% of predicted. 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 She follows with Dr. Olmstead in our office. She presented here to the emergency room yesterday with complaints of increasing shortness of breath, cough and congestion. Chest x-ray revealed no acute cardiopulmonary process. Evidence of COPD. White count 6.6. Hemoglobin 14.9. D-dimer 0.26. Sodium 140. Potassium 3.8. Bicarb 32. BUN 9. Creatinine 0.55. Glucose 144. Troponin negative times one. ProBNP 460. Barnard virus negative. She is seen today in consultation. Sitting up in bed. Awake and alert in no acute distress. Denies any worsening shortness of breath, cough or congestion. Maintaining O2 saturations in the 90s on 4 L/m per nasal cannula. She's been initiated on Symbicort, albuterol, Atrovent. Remains on IV solu Medrol 60 mg every 6 hours. Continued on her Singulair. Review of Systems REVIEW OF SYSTEMS: CONSTITUTIONAL: Denies any recent significant weight loss or weight gain. EYES: Denies change in vision. EARS, NOSE, MOUTH, THROAT: Denies headaches, denies sore throat. CARDIOVASCULAR: Denies chest pain, palpitations or syncopal episodes. RESPIRATORY: Positive for shortness of breath, cough, congestion no hemoptysis. GASTROINTESTINAL: Denies change in appetite, denies abdominal pain GENITOURINARY: Denies hematuria, denies infections. MUSKULOSKELETAL: Denies pain, denies swelling. INTEGUMENTARY: Denies rash, denies eczema. NEUROLOGICAL: Denies recent memory loss, no recent seizure activity. PSYCHIATRIC: Denies anxiety, denies depression. HEMATOLOGIC/LYMPHATIC: Denies anemia, denies enlarged lymph nodes. Past Medical History Past Medical History: Asthma, COPD, Diabetes Mellitus, Eye Disorder, GERD/Reflux, Pneumonia, Sleep Apnea/CPAP/BIPAP Additional Past Medical History / Comment(s): NIDDM type II(diet controlled following wt. loss), glaucoma bilaterally, tachycardia, AKIRA with CPAP not used the machine since she lost 80 lbs post gastric sleeve, Degenerative disc disease in her back and neck. HX COLITIS. History of rectal diverticulum. 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 History of Any Multi-Drug Resistant Organisms: None Reported Past Surgical History: Bariatric Surgery, Section, Tubal Ligation Additional Past Surgical History / Comment(s): cyst removal under right breast, x 2. gastric sleeve Sx 2016., Colonoscopy 2020. Past Anesthesia/Blood Transfusion Reactions: No Reported Reaction, Motion Sickness Past Psychological History: Anxiety, Depression Smoking Status: Current every day smoker Past Alcohol Use History: None Reported Past Drug Use History: None Reported - Past Family History Mother History Unknown: Yes Family Medical History: Cancer, COPD Additional Family Medical History / Comment(s): Breast cancer. She also has a paternal aunt with breast cancer. Father History Unknown: Yes Family Medical History: COPD, Myocardial Infarction ([place]), Vascular Disorder Additional Family Medical History / Comment(s): Father at age 64yrs. Medications and Allergies Home Medications Medication Instructions Recorded Confirmed Type Atorvastatin [Lipitor] 20 mg PO HS 04/18/20 08/18/22 History Ipratropium-Albuterol Nebulize 3 ml INHALATION RT-QID PRN 09/06/21 08/18/22 History [Duoneb 0.5 mg-3 mg/3 ml Soln] Montelukast [Singulair] 10 mg PO HS 09/06/21 08/18/22 History Budesonide-Formot 160-4.5 Mcg 2 puff INHALATION RT-BID 02/08/22 08/18/22 History [Symbicort 160-4.5 Mcg Inhaler] buPROPion XL [Wellbutrin XL] 150 mg PO DAILY 03/16/22 08/18/22 History Famotidine [Pepcid] 20 mg PO BID #60 tab 03/18/22 08/18/22 Rx busPIRone HCl [Buspar] 5 mg PO BID #60 tab 03/18/22 08/18/22 Rx predniSONE [Deltasone] 40 mg PO DAILY #8 tab 08/16/22 08/18/22 Rx ALPRAZolam [Xanax] 0.25 mg PO HS 08/18/22 08/18/22 History Albuterol Sulfate [Ventolin HFA] 1 - 2 puff INHALATION RT-Q6H PRN 08/18/22 08/18/22 History Azithromycin [Zithromax] 500 mg PO DAILY 08/18/22 08/18/22 History Ipratropium/Albuter 20-100Mcg 1 puff INHALATION RT-QID PRN 08/18/22 08/18/22 History [Combivent Respimat 20-100Mcg Inhaler] Allergies Allergy/AdvReac Type Severity Reaction Status Date / Time Iodinated Contrast Media Allergy Rash/Hives Verified 08/18/22 17:44 Penicillins Allergy Swelling Verified 08/18/22 17:44 lips pollen extracts Allergy Dyspnea Verified 08/18/22 17:44 shellfish derived [Shellfish] Allergy Anaphylaxis Verified 08/18/22 17:44 Physical Exam Vitals: Vital Signs Temp Pulse Pulse Resp BP BP Pulse Ox 08/19/22 11:34 72 08/19/22 11:19 72 08/19/22 09:02 70 08/19/22 08:48 97 08/19/22 08:46 67 08/19/22 07:00 97.7 F 62 18 151/81 98 08/19/22 06:30 83 18 143/86 97 08/19/22 05:10 59 L 18 134/62 97 08/19/22 04:05 67 17 138/76 97 08/19/22 03:33 78 17 121/78 96 08/19/22 02:10 98.0 F 66 17 146/76 98 08/18/22 23:13 98.2 F 74 18 119/58 99 08/18/22 23:05 72 17 102/50 98 08/18/22 20:32 85 08/18/22 20:16 70 08/18/22 19:01 64 08/18/22 18:46 68 08/18/22 18:00 71 14 115/65 99 08/18/22 17:45 76 14 126/66 98 08/18/22 17:30 76 14 115/75 99 08/18/22 17:20 77 14 115/75 99 08/18/22 17:10 74 16 120/64 99 08/18/22 17:00 78 14 131/78 99 08/18/22 16:40 84 16 133/70 98 08/18/22 16:21 98.7 F 90 17 121/74 97 Intake and Output 08/18/22 08/19/22 08/19/22 22:59 06:59 14:59 Intake Total 240 Balance 240 Intake: Oral 240 Other: # Voids 1 Weight 66.224 kg GENERAL EXAM: Alert, pleasant 52-year-old female, on 4 L nasal cannula, fairly comfortable in no apparent distress. HEAD: Normocephalic. EYES: Normal reaction of pupils, equal size. NOSE: Clear with pink turbinates. THROAT: No erythema or exudates. NECK: No masses, no JVD. CHEST: No chest wall deformity. LUNGS: Equal air entry with few scattered rhonchi, end expiratory wheeze, diminished. CVS: S1 and S2 normal with no audible murmur, regular rhythm. ABDOMEN: No hepatosplenomegaly, normal bowel sounds, no guarding or rigidity. SPINE: No scoliosis or deformity SKIN: No rashes CENTRAL NERVOUS SYSTEM: No focal deficits, tone is normal in all 4 extremities. EXTREMITIES: There is no peripheral edema. No clubbing, no cyanosis. Peripheral pulses are intact. Results - Laboratory Findings CBC and BMP: 08/18/22 16:26 08/18/22 16:26 PT/INR, D-dimer PT 9.6 sec (9.0-12.0) 08/18/22 16:26 INR 0.9 (<1.2) 08/18/22 16:26 D-Dimer 0.26 mg/L FEU (<0.60) 08/18/22 16:26 Abnormal lab findings: Abnormal Labs 08/18/22 08/18/22 08/18/22 16:26 16:26 16:26 Hct 47.2 H APTT 21.7 L Carbon Dioxide 32 H Glucose 144 H Plasma Lactic Acid Sesar 08/18/22 16:26 Hct APTT Carbon Dioxide Glucose Plasma Lactic Acid Sesar 2.2 H* - Diagnostic Findings Chest x-ray: image reviewed Assessment and Plan Assessment: Acute hypoxemic respiratory failure secondary to an acute exacerbation of chronic obstructive pulmonary disease Chronic obstructive pulmonary disease with an FEV1 value 53% of predicted. 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 Hyperlipidemia Gastroesophageal reflux disease Anxiety/depression History of obstructive sleep apnea, not utilizing CPAP, had since lost 80 pounds History of obesity, status post gastric sleeve placement Plan: The patient was seen and evaluated Chest x-ray, labs and medications reviewed Continue Symbicort, albuterol and Atrovent, IV Solu-Medrol Titrate down the FiO2 as tolerated Again educated regarding the importance of complete smoking cessation NicoDerm patch ordered We will continue to follow and make further recommendations based on her clinical status I have personally seen and examined the patient, performed the documentation and the assessment and plan as written. Number of minutes spent on the visit: 20.
[2022-08-19] MEDS ORDERED: DEXTROSE 50% SYRINGE 50 ML IVP PRN ×2 (11:56)
[2022-08-19] MEDS: INSULIN ASPART (NovoLOG) 100 UNIT/ML VIAL SQ SCH ×3 (12:13→21:14)
[2022-08-19] MEDS: NICOTINE 14MG/24HR PATCH TRANSDERM SCH (12:14)
[2022-08-19 17:20] LABS: Glucose,Whole Blood 134 mg/dL (70-110)
[2022-08-19] MEDS: MONTELUKAST 10 MG TAB PO SCH (20:14)
[2022-08-19] MEDS: ATORVASTATIN 20 MG TAB PO SCH (20:14)
[2022-08-19 20:47] LABS: Glucose,Whole Blood 211 mg/dL (70-110)
[2022-08-19] MEDS: BENZONATATE 100 MG CAP PO PRN (21:14)
[2022-08-19] MEDS: MUPIROCIN 2% OINT 22 GM TUBE TOPICAL PRN (21:14)
[2022-08-19] MEDS: ALPRAZolam 0.25 MG TAB PO SCH (23:06)
[2022-08-20] MEDS: methylPREDNISolone SOD SUCCI 125 MG/2 ML VIAL IV SCH ×3 (06:26→18:08)
[2022-08-20] MEDS: INSULIN ASPART (NovoLOG) 100 UNIT/ML VIAL SQ SCH ×4 (06:43→20:43)
[2022-08-20 06:44] LABS: Glucose,Whole Blood 127 mg/dL (70-110)
[2022-08-20] MEDS: IPRATROPIUM 0.5 MG/2.5 ML NEBU INHALATION SCH ×4 (09:20→21:12)
[2022-08-20] MEDS: ALBUTEROL NEBULIZED 2.5 MG/3 ML INHALATION SCH ×4 (09:20→21:11)
[2022-08-20] MEDS: SYMBICORT 160-4.5 MCG INHALER INHALATION SCH ×2 (09:20→21:12)
[2022-08-20] MEDS: buPROPion XL 150 MG TAB.ER.24H PO SCH (09:43)
[2022-08-20] MEDS: MUPIROCIN 2% OINT 22 GM TUBE TOPICAL PRN ×2 (09:43→20:43)
[2022-08-20] MEDS: BENZONATATE 100 MG CAP PO PRN ×2 (09:43→20:43)
[2022-08-20] MEDS: busPIRone HCl 5 MG TAB PO SCH ×2 (09:43→20:12)
[2022-08-20] MEDS: AZITHROMYCIN 500 MG TAB PO SCH (09:44)
[2022-08-20] MEDS: NICOTINE 14MG/24HR PATCH TRANSDERM SCH (09:44)
[2022-08-20] MEDS: HEPARIN SODIUM,PORCINE/PF 5,000 UNIT/0.5 ML SYRINGE SQ SCH ×2 (09:44→20:12)
[2022-08-20] MEDS: FAMOTIDINE 20 MG TAB PO SCH ×2 (09:44→20:12)
--- NOTE | 2022-08-20 10:08 | P.PN ---
Subjective This is a pleasant 52 years old female with multiple medical problems including COPD/asthma, diabetes mellitus, GERD, sleep apnea with CPAP machine, chronic low back pain and degenerative disc disease, anxiety and depression Nicotine dependence to smoke about half Pack to pack one-day she states she quit about 5 days ago. She presents because of progressive dyspnea for more than a week inserted with cough and the total clamp She is having a chest pain and a little abdominal discomfort with coughing only. Total diarrhea but no vomiting, no urinary symptoms, and the total headache but no dizziness weakness or numbness. She denies alcohol or illicit drugs. She is on 1-2 L of oxygen at home as needed. PCP is Dr. Sabillon and cigar roller is Dr. Brown Presents because of dyspnea and hypoxia and she was found saturating 78% on room air on admission, Currently she is saturating 97% on 4 L, afebrile. Labs reveal she has unremarkable CBC, INR, BMP and liver enzymes and troponin and BNP. D-dimer is negative at 0.26. Coronal virus not detected. Chest x-ray showing clear lungs, COPD changes with hyperinflated chest EKG showed sinus tachycardia [address]-T changes patient received Zithromax and Solu-Medrol and emergency room 08/20/2022 Patient remains short of breath even at rest, she is not in distress and she is not using respiratory accessory muscles. Her oxygen saturation is acceptable. However she still have extensive wheezing Patient still needs to stay in the hospital for more than 2 days and tonight for her extensive bronchospasm Patient currently on high-dose IV Solu Medrol 6 mg and antibiotics Zithromax Objective - Vital Signs Vital signs: Vital Signs Temp 98.7 F 08/20/22 07:00 Pulse 84 08/20/22 09:37 Resp 18 08/20/22 07:00 BP 136/82 08/20/22 07:00 Pulse Ox 96 08/20/22 07:00 FiO2 Intake & Output 08/19/22 08/20/22 08/20/22 18:59 06:59 18:59 Intake Total 480 240 Balance 480 240 Weight 66.224 kg Intake: Oral 480 240 Other: # Voids 1 2 - Exam GENERAL: The patient is alert and oriented x3, not in any acute distress. Well developed, well nourished. HEENT: Pupils are round and equally reacting to light. EOMI. No scleral icterus. No conjunctival pallor. Normocephalic, atraumatic. No pharyngeal erythema. No thyromegaly. CARDIOVASCULAR: S1 and S2 present. No murmurs, rubs, or gallops. -PULMONARY: Chest is clear to auscultation, bilateral extensive expiratory wheezing . No crackles. ABDOMEN: Soft, nontender, nondistended, normoactive bowel sounds. No palpable organomegaly. MUSCULOSKELETAL: No joint swelling or deformity. EXTREMITIES: No cyanosis, clubbing, or pedal edema. NEUROLOGICAL: Gross neurological examination did not reveal any focal deficits. SKIN: No rashes. no petechiae. - Labs CBC & Chem 7: 08/18/22 16:26 08/18/22 16:26 Labs: Abnormal Lab Results - Last 24 Hours (Table) 08/19/22 08/19/22 08/19/22 Range/Units 11:37 16:51 20:40 POC Glucose (mg/dL) 203 H 134 H 211 H (70-110) mg/dL 08/20/22 Range/Units 06:42 POC Glucose (mg/dL) 127 H (70-110) mg/dL Assessment and Plan Assessment: Acute COPD exacerbation. Acute hypoxic respiratory failure Nicotine dependence Diabetes mellitus History of GERD. History of sleep apnea on CPAP machine Chronic back pain and degenerative disc disease Exactly and depression, not an active issue Plan: Continue with steroids, and salmeterol 60 Continue with a bronchodilator, Zithromax short oral course pulmonary consult Labs and medication were reviewed.. Continue same treatment. Continue with symptomatic treatment. Resume home medication. Monitor labs and vitals. DVT and GI prophylaxis. Further recommendations as per clinical course of the patient DVT prophylaxis: Subcutaneous heparin GI Prophylaxis: Pepcid Prognosis is guarded
[2022-08-20 11:41] LABS: Glucose,Whole Blood 150 mg/dL (70-110)
--- NOTE | 2022-08-20 13:27 | P.PN ---
Subjective Progress Note Date: 08/20/22 This is a very pleasant 52-year-old female patient with a known history of hyperlipidemia, diabetes mellitus, gastroesophageal reflux disease, previous obesity status post gastric sleeve and was able to be off CPAP for obstructive sleep apnea, chronic and ongoing tobacco dependence, chronic obstructive pu lmonary disease with an FEV1 value 53% of predicted. 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 She follows with Dr. Olmstead in our office. She presented here to the emergency room yesterday with complaints of increasing shortness of breath, cough and congestion. Chest x-ray revealed no acute cardiopulmonary process. Evidence of COPD. White count 6.6. Hemoglobin 14.9. D-dimer 0.26. Sodium 140. Potassium 3.8. Bicarb 32. BUN 9. Creatinine 0.55. Glucose 144. Troponin negative times one. ProBNP 460. Barnard virus negative. She is seen today in consultation. Sitting up in bed. Awake and alert in no acute distress. Denies any worsening shortness of breath, cough or congestion. Maintaining O2 saturations in the 90s on 4 L/m per nasal cannula. She's been initiated on Symbicort, albuterol, Atrovent. Remains on IV solu Medrol 60 mg every 6 hours. Continued on her Singulair. The patient is seen today 08/20/2022 in follow-up on the regular medical floor. She is currently sitting up in bed having breakfast. Awake and alert in no acute distress. She is feeling better today compared to yesterday. Not quite back to her baseline. Maintaining good O2 saturations in the 90s on 2 L/m per nasal cannula. She is maintained on Symbicort, Singulair, albuterol, IV Solu- Medrol. Tessalon Perles for her cough. Empiric antibiotics in the form of azithromycin. NicoDerm patch in place. Objective - Vital Signs Vital signs: Vital Signs Temp 98.7 F 08/20/22 07:00 Pulse 80 08/20/22 12:59 Resp 18 08/20/22 07:00 BP 136/82 08/20/22 07:00 Pulse Ox 96 08/20/22 07:00 FiO2 Intake & Output 08/19/22 08/20/22 08/20/22 18:59 06:59 18:59 Intake Total 480 240 Balance 480 240 Weight 66.224 kg Intake: Oral 480 240 Other: # Voids 1 2 - Exam GENERAL EXAM: Alert, active, pleasant 52-year-old female, on 2 L nasal cannula, comfortable in no apparent distress. HEAD: Normocephalic. EYES: Normal reaction of pupils, equal size. NOSE: Clear with pink turbinates. THROAT: No erythema or exudates. NECK: No masses, no JVD. CHEST: No chest wall deformity. LUNGS: Equal air entry with bilateral end expiratory wheeze. CVS: S1 and S2 normal with no audible murmur, regular rhythm. ABDOMEN: No hepatosplenomegaly, normal bowel sounds, no guarding or rigidity. SPINE: No scoliosis or deformity SKIN: No rashes CENTRAL NERVOUS SYSTEM: No focal deficits, tone is normal in all 4 extremities. EXTREMITIES: There is no peripheral edema. No clubbing, no cyanosis. Peripheral pulses are intact. - Labs CBC & Chem 7: 08/18/22 16:26 08/18/22 16:26 Labs: Abnormal Lab Results - Last 24 Hours (Table) 08/19/22 08/19/22 08/20/22 Range/Units 16:51 20:40 06:42 POC Glucose (mg/dL) 134 H 211 H 127 H (70-110) mg/dL 08/20/22 Range/Units 11:39 POC Glucose (mg/dL) 150 H (70-110) mg/dL Assessment and Plan Assessment: Acute hypoxemic respiratory failure secondary to an acute exacerbation of chronic obstructive pulmonary disease Chronic obstructive pulmonary disease with an FEV1 value 53% of predicted. 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 Number of minutes spent on the visit: 10.
[2022-08-20 17:23] LABS: Glucose,Whole Blood 126 mg/dL (70-110)
[2022-08-20] MEDS: ATORVASTATIN 20 MG TAB PO SCH (20:12)
[2022-08-20] MEDS: MONTELUKAST 10 MG TAB PO SCH (20:12)
[2022-08-20] MEDS: ALPRAZolam 0.25 MG TAB PO SCH (20:12)
[2022-08-20 20:39] LABS: Glucose,Whole Blood 184 mg/dL (70-110)
[2022-08-21] MEDS: methylPREDNISolone SOD SUCCI 125 MG/2 ML VIAL IV SCH ×5 (00:03→23:22)
[2022-08-21] MEDS: INSULIN ASPART (NovoLOG) 100 UNIT/ML VIAL SQ SCH ×4 (06:14→20:20)
[2022-08-21 06:15] LABS: Glucose,Whole Blood 142 mg/dL (70-110)
[2022-08-21] MEDS: HEPARIN SODIUM,PORCINE/PF 5,000 UNIT/0.5 ML SYRINGE SQ SCH ×2 (09:30→20:16)
[2022-08-21] MEDS: FAMOTIDINE 20 MG TAB PO SCH ×2 (09:31→17:03)
[2022-08-21] MEDS: AZITHROMYCIN 500 MG TAB PO SCH (09:31)
[2022-08-21] MEDS: NICOTINE 14MG/24HR PATCH TRANSDERM SCH (09:31)
[2022-08-21] MEDS: busPIRone HCl 5 MG TAB PO SCH ×2 (09:31→20:16)
[2022-08-21] MEDS: buPROPion XL 150 MG TAB.ER.24H PO SCH (09:31)
[2022-08-21] MEDS: ALBUTEROL NEBULIZED 2.5 MG/3 ML INHALATION SCH ×4 (09:32→21:52)
[2022-08-21] MEDS: SYMBICORT 160-4.5 MCG INHALER INHALATION SCH ×2 (09:32→21:52)
[2022-08-21] MEDS: IPRATROPIUM 0.5 MG/2.5 ML NEBU INHALATION SCH ×4 (09:32→21:52)
[2022-08-21] MEDS: BENZONATATE 100 MG CAP PO PRN ×2 (10:56→20:21)
[2022-08-21] MEDS: MUPIROCIN 2% OINT 22 GM TUBE TOPICAL PRN (10:57)
--- NOTE | 2022-08-21 11:14 | P.PN ---
Subjective Progress Note Date: 08/21/22 This is a very pleasant 52-year-old female patient with a known history of hyperlipidemia, diabetes mellitus, gastroesophageal reflux disease, previous obesity status post gastric sleeve and was able to be off CPAP for obstructive sleep apnea, chronic and ongoing tobacco dependence, chronic obstructive pu lmonary disease with an FEV1 value 53% of predicted. 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 She follows with Dr. Olmstead in our office. She presented here to the emergency room yesterday with complaints of increasing shortness of breath, cough and congestion. Chest x-ray revealed no acute cardiopulmonary process. Evidence of COPD. White count 6.6. Hemoglobin 14.9. D-dimer 0.26. Sodium 140. Potassium 3.8. Bicarb 32. BUN 9. Creatinine 0.55. Glucose 144. Troponin negative times one. ProBNP 460. Barnard virus negative. She is seen today in consultation. Sitting up in bed. Awake and alert in no acute distress. Denies any worsening shortness of breath, cough or congestion. Maintaining O2 saturations in the 90s on 4 L/m per nasal cannula. She's been initiated on Symbicort, albuterol, Atrovent. Remains on IV solu Medrol 60 mg every 6 hours. Continued on her Singulair. The patient is seen today 08/20/2022 in follow-up on the regular medical floor. She is currently sitting up in bed having breakfast. Awake and alert in no acute distress. She is feeling better today compared to yesterday. Not quite back to her baseline. Maintaining good O2 saturations in the 90s on 2 L/m per nasal cannula. She is maintained on Symbicort, Singulair, albuterol, IV Solu- Medrol. Tessalon Perles for her cough. Empiric antibiotics in the form of azithromycin. NicoDerm patch in place. The patient is seen today 08/21/2022 in follow-up on the regular medical floor. She is awake and alert in no acute distress. Sitting up in bed. Continues to feel better daily. Still not quite back to her baseline. Still with a loose congested cough. No fever or chills. she is continued on Symbicort, DuoNeb inhalations, IV Solu-Medrol. Empiric antibiotics in the form of azithromycin. Objective - Vital Signs Vital signs: Vital Signs Temp 97.9 F 08/21/22 08:00 Pulse 100 08/21/22 09:48 Resp 17 08/21/22 08:00 BP 169/88 08/21/22 08:00 Pulse Ox 99 08/21/22 09:32 FiO2 Intake & Output 08/20/22 08/21/22 08/21/22 18:59 06:59 18:59 Intake Total 600 59 Balance 600 59 Intake: Oral 600 59 Other: # Voids 1 2 - Exam GENERAL EXAM: Alert, 52-year-old female, on 2 L nasal cannula, comfortable in no apparent distress. HEAD: Normocephalic. EYES: Normal reaction of pupils, equal size. NOSE: Clear with pink turbinates. THROAT: No erythema or exudates. NECK: No masses, no JVD. CHEST: No chest wall deformity. LUNGS: Equal air entry with bilateral end expiratory wheeze. CVS: S1 and S2 normal with no audible murmur, regular rhythm. ABDOMEN: No hepatosplenomegaly, normal bowel sounds, no guarding or rigidity. SPINE: No scoliosis or deformity SKIN: No rashes CENTRAL NERVOUS SYSTEM: No focal deficits, tone is normal in all 4 extremities. EXTREMITIES: There is no peripheral edema. No clubbing, no cyanosis. Peripheral pulses are intact. - Labs CBC & Chem 7: 08/18/22 16:26 08/18/22 16:26 Labs: Abnormal Lab Results - Last 24 Hours (Table) 08/20/22 08/20/22 08/20/22 Range/Units 11:39 17:12 20:38 POC Glucose (mg/dL) 150 H 126 H 184 H (70-110) mg/dL 08/21/22 Range/Units 06:14 POC Glucose (mg/dL) 142 H (70-110) mg/dL Assessment and Plan Assessment: Acute hypoxemic respiratory failure secondary to an acute exacerbation of chronic obstructive pulmonary disease Chronic obstructive pulmonary disease with an FEV1 value 53% of predicted. 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 Number of minutes spent on the visit: 10.
[2022-08-21 13:03] LABS: Glucose,Whole Blood 116 mg/dL (70-110)
[2022-08-21 17:13] LABS: Glucose,Whole Blood 150 mg/dL (70-110)
[2022-08-21] MEDS: ATORVASTATIN 20 MG TAB PO SCH (20:15)
[2022-08-21 20:16] LABS: Glucose,Whole Blood 167 mg/dL (70-110)
[2022-08-21] MEDS: MONTELUKAST 10 MG TAB PO SCH (20:16)
[2022-08-21] MEDS: ALPRAZolam 0.25 MG TAB PO SCH (20:16)
--- NOTE | 2022-08-21 20:37 | P.PN ---
Subjective Progress Note Date: 08/21/22 This is a pleasant 52 years old female with multiple medical problems including COPD/asthma, diabetes mellitus, GERD, sleep apnea with CPAP machine, chronic low back pain and degenerative disc disease, anxiety and depression Nicotine dependence to smoke about half Pack to pack one-day she states she quit about 5 days ago. She presents because of progressive dyspnea for more than a week inserted with cough and the total clamp She is having a chest pain and a little abdominal discomfort with coughing only. Total diarrhea but no vomiting, no urinary symptoms, and the total headache but no dizziness weakness or numbness. She denies alcohol or illicit drugs. She is on 1-2 L of oxygen at home as needed. PCP is Dr. Sabillon and farm machinery erector is Dr. Brown Presents because of dyspnea and hypoxia and she was found saturating 78% on room air on admission, Currently she is saturating 97% on 4 L, afebrile. Labs reveal she has unremarkable CBC, INR, BMP and liver enzymes and troponin and BNP. D-dimer is negative at 0.26. Coronal virus not detected. Chest x-ray showing clear lungs, COPD changes with hyperinflated chest EKG showed sinus tachycardia [address]-T changes patient received Zithromax and Solu-Medrol and emergency room 08/20/2022 Patient remains short of breath even at rest, she is not in distress and she is not using respiratory accessory muscles. Her oxygen saturation is acceptable. However she still have extensive wheezing Patient still needs to stay in the hospital for more than 2 days and tonight for her extensive bronchospasm Patient currently on high-dose IV Solu Medrol 6 mg and antibiotics Zithromax 08/21/2022 Patient is seen in follow-up today being closely monitored with pulmonary following. Patient is maintained on IV steroids along with continued supplemental oxygen and breathing treatments. Patient reports she feels slightly improved from yesterday although not quite back at baseline. Patient does use oxygen in the outpatient setting as needed. Patient is afebrile denies chest pain and continues with shortness of breath with exertion as well. No reports of nausea or vomiting noted. Patient encouraged to increase activity as tolerated. Review of systems: Constitutional: No reports of fatigue, fever, or chills Cardiovascular: No reports of chest pain or palpitations Respiratory: No reports of shortness of breath or cough GI: No reports of nausea, vomiting, or diarrhea : No reports of dysuria or retention Neurovascular: No reports of weakness or numbness All medications have been reviewed Active Medications Acetaminophen (Acetaminophen Tab 325 Mg Tab) 650 mg PO Q4HR PRN PRN Reason: Mild Pain or Fever > 100.5 Last Admin: 08/21/22 17:02 Dose: 650 mg Albuterol Sulfate (Albuterol Nebulized 2.5 Mg/3 Ml) 2.5 mg INHALATION RT-QID [facility] Last Admin: 08/21/22 16:25 Dose: 2.5 mg Albuterol Sulfate (Albuterol Nebulized 2.5 Mg/3 Ml) 2.5 mg INHALATION RT-QID PRN PRN Reason: Shortness Of Breath Alprazolam (Alprazolam 0.25 Mg Tab) 0.25 mg PO [facility] Last Admin: 08/21/22 20:16 Dose: 0.25 mg Atorvastatin Calcium (Atorvastatin 20 Mg Tab) 20 mg PO [facility] Last Admin: 08/21/22 20:15 Dose: 20 mg Benzonatate (Benzonatate 100 Mg Cap) 100 mg PO TID PRN PRN Reason: Cough Last Admin: 08/21/22 20:21 Dose: 100 mg Budesonide/Formoterol Fumarate (Symbicort 160-4.5 Mcg Inhaler) 2 puff INHALATION RT-BID [facility] Last Admin: 08/21/22 09:32 Dose: 2 puff Bupropion HCl (Bupropion Xl 150 Mg Tab.Er.24h) 150 mg PO DAILY [facility] Last Admin: 08/21/22 09:31 Dose: 150 mg Buspirone HCl (Buspirone Hcl 5 Mg Tab) 5 mg PO BID [facility] Last Admin: 08/21/22 20:16 Dose: 5 mg Dextrose/Water (Dextrose 50% Syringe 50 Ml) 25 ml IVP PER PROTOCOL PRN; Protocol PRN Reason: Hypoglycemia Dextrose/Water (Dextrose 50% Syringe 50 Ml) 50 ml IVP PER PROTOCOL PRN; Protocol PRN Reason: Hypoglycemia Famotidine (Famotidine 20 Mg Tab) 20 mg PO BID [facility] Last Admin: 08/21/22 17:03 Dose: 20 mg Heparin Sodium (Porcine) (Heparin Sodium,Porcine/Pf 5,000 Unit/0.5 Ml Syringe) 5,000 unit SQ Q12HR [facility] Last Admin: 08/21/22 20:16 Dose: 5,000 unit Insulin Aspart (Insulin Aspart (Novolog) 100 Unit/Ml Vial) 0 unit SQ ACHS [facility]; Protocol Last Admin: 08/21/22 20:20 Dose: 1 unit Ipratropium [place] (Ipratropium 0.5 Mg/2.5 Ml Nebu) 0.5 mg INHALATION RT-QID [facility] Last Admin: 08/21/22 16:25 Dose: 0.5 mg Ipratropium [place] (Ipratropium 0.5 Mg/2.5 Ml Nebu) 0.5 mg INHALATION RT-QID PRN PRN Reason: Shortness Of Breath Methylprednisolone Sodium Succinate (Methylprednisolone Sod Succi 125 Mg/2 Ml Vial) 60 mg IV Q6HR [facility] Last Admin: 08/21/22 17:56 Dose: 60 mg Montelukast Sodium (Montelukast 10 Mg Tab) 10 mg PO HS [facility] Last Admin: 08/21/22 20:16 Dose: 10 mg Mupirocin (Mupirocin 2% Oint 22 Gm Tube) 1 applic TOPICAL TID PRN; Protocol PRN Reason: Skin Irritation Last Admin: 08/21/22 10:57 Dose: 1 applic Naloxone HCl (Naloxone 0.4 Mg/Ml 1 Ml Vial) 0.2 mg IVP Q2M PRN PRN Reason: Opioid Reversal Nicotine (Nicotine 14mg/24hr Patch) 1 patch TRANSDERM DAILY [facility] Last Admin: 08/21/22 09:31 Dose: 1 patch Physical exam: GENERAL: The patient is alert and oriented x3, not in any acute distress. Well developed, well nourished. HEENT: Pupils are round and equally reacting to light. EOMI. No scleral icterus. No conjunctival pallor. Normocephalic, atraumatic. No pharyngeal erythema. No thyromegaly. CARDIOVASCULAR: S1 and S2 muffled PULMONARY: Diminished breath sounds bilaterally with some extensive expiratory wheezing and coarse rhonchi noted ABDOMEN: Soft, nontender, nondistended, normoactive bowel sounds. No palpable organomegaly. MUSCULOSKELETAL: No joint swelling or deformity. EXTREMITIES: No cyanosis, clubbing, or pedal edema. NEUROLOGICAL: Gross neurological examination did not reveal any focal deficits. SKIN: No rashes. no petechiae. Assessment: Acute COPD exacerbation. Acute on chronic hypoxic respiratory failure, patient does have oxygen in the outpatient setting Nicotine dependence Diabetes mellitus History of GERD. History of sleep apnea on CPAP machine Chronic back pain and degenerative disc disease Anxiety and depression, not an active issue GI prophylaxis DVT prophylaxis Full code Plan: Continue with IV steroids along with breathing treatments and patient is completing a course of Zithromax with pulmonary following Encouraged increased activity as tolerated Will repeat labs in the a.m. Will discuss further with pulmonary about discharge planning with possible discharge in the next 24-48 hours Prognosis is guarded The impression and plan of care has been dictated by Amanda Lala, Nurse Practitioner as directed. Dr. Saleem MD I have performed a history and examination and MDM of this patient, discussed the same with the dictator, and agree with the dictator's assessment and plan as written ,documented as a scribe. Based on total visit time, I have performed more than 50% of the visit. Objective - Vital Signs Vital signs: Vital Signs Temp 98.0 F 08/21/22 14:00 Pulse 92 08/21/22 16:44 Resp 17 08/21/22 14:00 BP 165/84 08/21/22 14:00 Pulse Ox 98 08/21/22 14:00 FiO2 Intake & Output 08/21/22 08/21/22 08/22/22 06:59 18:59 06:59 Intake Total 532 Balance 532 Intake: Oral 532 Other: # Voids 2 1 - Labs CBC & Chem 7: 08/18/22 16:26 08/18/22 16:26 Labs: Abnormal Lab Results - Last 24 Hours (Table) 08/20/22 08/21/22 08/21/22 Range/Units 20:38 06:14 13:01 POC Glucose (mg/dL) 184 H 142 H 116 H (70-110) mg/dL 08/21/22 08/21/22 Range/Units 17:11 20:14 POC Glucose (mg/dL) 150 H 167 H (70-110) mg/dL
[2022-08-22 03:19] VITALS: RESP 18
[2022-08-22] MEDS: INSULIN ASPART (NovoLOG) 100 UNIT/ML VIAL SQ SCH ×2 (05:52→12:59)
[2022-08-22 05:53] LABS: Glucose,Whole Blood 133 mg/dL (70-110)
[2022-08-22] MEDS: methylPREDNISolone SOD SUCCI 125 MG/2 ML VIAL IV SCH ×2 (05:53→12:59)
[2022-08-22] MEDS: IPRATROPIUM 0.5 MG/2.5 ML NEBU INHALATION SCH (07:31)
[2022-08-22] MEDS: ALBUTEROL NEBULIZED 2.5 MG/3 ML INHALATION SCH (07:31)
[2022-08-22] MEDS: SYMBICORT 160-4.5 MCG INHALER INHALATION SCH (07:31)
[2022-08-22] MEDS: HEPARIN SODIUM,PORCINE/PF 5,000 UNIT/0.5 ML SYRINGE SQ SCH (08:38)
[2022-08-22] MEDS: buPROPion XL 150 MG TAB.ER.24H PO SCH (08:38)
[2022-08-22] MEDS: NICOTINE 14MG/24HR PATCH TRANSDERM SCH (08:39)
[2022-08-22] MEDS: FAMOTIDINE 20 MG TAB PO SCH (08:39)
[2022-08-22] MEDS: busPIRone HCl 5 MG TAB PO SCH (08:39)
[2022-08-22 08:41] VITALS: BP 166/79; TEMP 97.7
[2022-08-22] MEDS ORDERED: IPRATROPIUM-ALBUTEROL 3 ML NEB INHALATION PRN (08:52)
[2022-08-22] MEDS ORDERED: ALBUTEROL NEBULIZED 2.5 MG/3 ML INHALATION PRN (09:00)
[2022-08-22] MEDS ORDERED: IPRATROPIUM 0.5 MG/2.5 ML NEBU INHALATION PRN (09:00)
[2022-08-22 11:10] VITALS: PULSE 80
--- NOTE | 2022-08-22 11:59 | P.PN ---
Subjective Progress Note Date: 08/22/22 This is a very pleasant 52-year-old female patient with a known history of hyperlipidemia, diabetes mellitus, gastroesophageal reflux disease, previous obesity status post gastric sleeve and was able to be off CPAP for obstructive sleep apnea, chronic and ongoing tobacco dependence, chronic obstructive pu lmonary disease with an FEV1 value 53% of predicted. 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 She follows with Dr. Olmstead in our office. She presented here to the emergency room yesterday with complaints of increasing shortness of breath, cough and congestion. Chest x-ray revealed no acute cardiopulmonary process. Evidence of COPD. White count 6.6. Hemoglobin 14.9. D-dimer 0.26. Sodium 140. Potassium 3.8. Bicarb 32. BUN 9. Creatinine 0.55. Glucose 144. Troponin negative times one. ProBNP 460. Barnard virus negative. She is seen today in consultation. Sitting up in bed. Awake and alert in no acute distress. Denies any worsening shortness of breath, cough or congestion. Maintaining O2 saturations in the 90s on 4 L/m per nasal cannula. She's been initiated on Symbicort, albuterol, Atrovent. Remains on IV solu Medrol 60 mg every 6 hours. Continued on her Singulair. The patient is seen today 08/20/2022 in follow-up on the regular medical floor. She is currently sitting up in bed having breakfast. Awake and alert in no acute distress. She is feeling better today compared to yesterday. Not quite back to her baseline. Maintaining good O2 saturations in the 90s on 2 L/m per nasal cannula. She is maintained on Symbicort, Singulair, albuterol, IV Solu- Medrol. Tessalon Perles for her cough. Empiric antibiotics in the form of azithromycin. NicoDerm patch in place. The patient is seen today 08/21/2022 in follow-up on the regular medical floor. She is awake and alert in no acute distress. Sitting up in bed. Continues to feel better daily. Still not quite back to her baseline. Still with a loose congested cough. No fever or chills. she is continued on Symbicort, DuoNeb inhalations, IV Solu-Medrol. Empiric antibiotics in the form of azithromycin. The patient is seen today 08/22/2022 in follow-up on the regular medical floor. Currently sitting up in bed having breakfast. Awake and alert in no acute distress. Improving daily. He worsening shortness of breath, cough or congestion. She's been maintained on IV Solu-Medrol, bronchodilators, Singulair, Tessalon Perles. NicoDerm patches in place. Blood glucose 133. Completed a course of antibiotics. Objective - Vital Signs Vital signs: Vital Signs Temp 97.7 F 08/22/22 08:00 Pulse 80 08/22/22 11:23 Resp 18 08/22/22 08:00 BP 166/79 08/22/22 08:00 Pulse Ox 98 08/22/22 08:00 FiO2 Intake & Output 08/21/22 08/22/22 08/22/22 18:59 06:59 18:59 Intake Total 532 473 Balance 532 473 Intake: Oral 532 473 Other: Voiding Method Toilet # Voids 1 2 - Exam GENERAL EXAM: Alert, pleasant 52-year-old female, on 2 L nasal cannula, comfortable in no apparent distress. HEAD: Normocephalic. EYES: Normal reaction of pupils, equal size. NOSE: Clear with pink turbinates. THROAT: No erythema or exudates. NECK: No masses, no JVD. CHEST: No chest wall deformity. LUNGS: Equal air entry with bilateral end expiratory wheeze. CVS: S1 and S2 normal with no audible murmur, regular rhythm. ABDOMEN: No hepatosplenomegaly, normal bowel sounds, no guarding or rigidity. SPINE: No scoliosis or deformity SKIN: No rashes CENTRAL NERVOUS SYSTEM: No focal deficits, tone is normal in all 4 extremities. EXTREMITIES: There is no peripheral edema. No clubbing, no cyanosis. Peripheral pulses are intact. - Labs CBC & Chem 7: 08/18/22 16:26 08/18/22 16:26 Labs: Abnormal Lab Results - Last 24 Hours (Table) 08/21/22 08/21/22 08/21/22 Range/Units 13:01 17:11 20:14 POC Glucose (mg/dL) 116 H 150 H 167 H (70-110) mg/dL 08/22/22 Range/Units 05:52 POC Glucose (mg/dL) 133 H (70-110) mg/dL Assessment and Plan Assessment: Acute hypoxemic respiratory failure secondary to an acute exacerbation of chronic obstructive pulmonary disease Chronic obstructive pulmonary disease with an FEV1 value 53% of predicted. 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 Hyperlipidemia Gastroesophageal reflux disease Anxiety/depression History of obstructive sleep apnea, not utilizing CPAP, had since lost 80 pounds History of obesity, status post gastric sleeve placement Plan: The patient was seen and evaluated Medications reviewed Improved and back to her baseline Cleared for discharge from the pulmonary standpoint Continue her home pulmonary medications Continue a prednisone taper Continue NicoDerm patches Again educated regarding the importance of complete smoking cessation Follow-up in our office in 1 week I have personally seen and examined the patient, performed the documentation and the assessment and plan as written. Number of minutes spent on the visit: 10.
[2022-08-22] MEDS ORDERED: ALBUTEROL NEBULIZED 2.5 MG/3 ML INHALATION SCH (12:00)
[2022-08-22] MEDS ORDERED: IPRATROPIUM-ALBUTEROL 3 ML NEB INHALATION SCH (12:00)
[2022-08-22] MEDS ORDERED: IPRATROPIUM 0.5 MG/2.5 ML NEBU INHALATION SCH (12:00)
[2022-08-22 12:40] LABS: Glucose,Whole Blood 151 mg/dL (70-110)
--- NOTE | 2022-08-26 06:49 | P.DS ---
Providers Date of admission: 08/20/22 10:05 Expected date of discharge: 08/22/22 Attending physician: Shandra Monge Consults: 08/19/22 07:23 Consult Physician Urgent Consulting Provider: Barrie Olmstead Reason/Comments: copd Do you want consulting provider notified?: Yes Primary care physician: Edilberto Sabillon Hospital Course: Final diagnosis Acute COPD exacerbation. Acute on chronic hypoxic respiratory failure, patient does have oxygen in the outpatient setting Nicotine dependence Diabetes mellitus History of GERD. History of sleep apnea on CPAP machine Chronic back pain and degenerative disc disease Anxiety and depression, not an active issue GI prophylaxis DVT prophylaxis Full code Discharge disposition Patient is being discharged in a stable condition with guarded prognosis to home. Patient will follow-up with Dr. Sabillon in the outpatient setting upon discharge. Patient is to follow-up with pulmonary outpatient as scheduled. She will continue her prednisone taper and discharge. Total time taken is greater than 35 minutes. Hospital course This is a 52-year-old female who was recently admitted tenderness of breath and found to have acute exacerbation of COPD. Patient does have chronic respiratory failure with a oxygen the outpatient setting. Patient seen and evaluated and being closely monitored by pulmonary maintained on IV steroids along with breathing treatments and showing some slow clinical improvement. Patient reports to feeling better and has been cleared by pulmonary for discharge. Patient will follow up with pulmonary the outpatient setting and continue her prednisone taper on discharge. Currently no reports of chest pain, shortness of breath, or palpitations. Patient is afebrile. No reports of nausea or vomiting and patient is tolerating diet. Patient will be discharged home today. Physical exam: Gen: This is a 52-year-old female who is awake, alert and oriented 3, well- developed, well-nourished HEENT: Head is atraumatic, normocephalic. Pupils equal, round. Sclerae is anicteric. NECK: Supple. No JVD. No lymphadenopathy. No thyromegaly. LUNGS: Diminished breath sounds bilaterally with some scattered rhonchi and forced expiratory wheezing noted. No intercostal retractions. HEART: Regular rate and rhythm. No murmur. ABDOMEN: Soft. Bowel sounds are present. No masses. No tenderness. EXTREMITIES: No pedal edema. No calf tenderness. NEUROLOGICAL: Patient is awake, alert and oriented x3. Cranial nerves 2 through 12 are grossly intact. Please refer to medication reconciliation sheet for a list of medications. The impression and plan of care has been dictated by Amanda Lala, Nurse Practitioner as directed. Dr. Saleem MD I have performed a history and examination and MDM of this patient, discussed the same with the dictator, and agree with the dictator's assessment and plan as written ,documented as a scribe. Based on total visit time, I have performed more than 50% of the visit. Patient Condition at Discharge: Good Plan - Discharge Summary Discharge Rx Participant: No New Discharge Prescriptions: New Acetaminophen Tab [Tylenol] 650 mg PO Q4HR PRN tab PRN Reason: Mild Pain Or Fever > 100.5 Mupirocin 2% Oint [Bactroban 2% Oint] 1 applic TOPICAL TID PRN each PRN Reason: Skin Irritation Nicotine 14Mg/24Hr Patch [Habitrol] 1 patch TRANSDERM DAILY #30 patch predniSONE 10 mg PO DIRECTED #30 tab Benzonatate [Tessalon Perles] 100 mg PO TID PRN #10 cap PRN Reason: Cough Continue Atorvastatin [Lipitor] 20 mg PO HS Montelukast [Singulair] 10 mg PO HS Budesonide-Formot 160-4.5 Mcg [Symbicort 160-4.5 Mcg Inhaler] 2 puff INHALATION RT-BID busPIRone HCl [Buspar] 5 mg PO BID #60 tab Albuterol Sulfate [Ventolin HFA] 1 - 2 puff INHALATION RT-Q6H PRN PRN Reason: Shortness Of Breath Ipratropium-Albuterol Nebulize [Duoneb 0.5 mg-3 mg/3 ml Soln] 3 ml INHALATION RT-QID PRN PRN Reason: Shortness Of Breath buPROPion XL [Wellbutrin XL] 150 mg PO DAILY Famotidine [Pepcid] 20 mg PO BID #60 tab ALPRAZolam [Xanax] 0.25 mg PO HS Ipratropium/Albuter 20-100Mcg [Combivent Respimat 20-100Mcg Inhaler] 1 puff INHALATION RT-QID PRN PRN Reason: Shortness Of Breath Discontinued Azithromycin [Zithromax] 500 mg PO DAILY predniSONE [Deltasone] 40 mg PO DAILY #8 tab Discharge Medication List Atorvastatin [Lipitor] 20 mg PO HS 04/18/20 [History] Ipratropium-Albuterol Nebulize [Duoneb 0.5 mg-3 mg/3 ml Soln] 3 ml INHALATION RT-QID PRN 09/06/21 [History] Montelukast [Singulair] 10 mg PO HS 09/06/21 [History] Budesonide-Formot 160-4.5 Mcg [Symbicort 160-4.5 Mcg Inhaler] 2 puff INHALATION RT-BID 02/08/22 [History] buPROPion XL [Wellbutrin XL] 150 mg PO DAILY 03/16/22 [History] Famotidine [Pepcid] 20 mg PO BID #60 tab 03/18/22 [Rx] busPIRone HCl [Buspar] 5 mg PO BID #60 tab 03/18/22 [Rx] ALPRAZolam [Xanax] 0.25 mg PO HS 08/18/22 [History] Albuterol Sulfate [Ventolin HFA] 1 - 2 puff INHALATION RT-Q6H PRN 08/18/22 [History] Ipratropium/Albuter 20-100Mcg [Combivent Respimat 20-100Mcg Inhaler] 1 puff INHALATION RT-QID PRN 08/18/22 [History] Acetaminophen Tab [Tylenol] 650 mg PO Q4HR PRN tab 08/22/22 [Rx] Benzonatate [Tessalon Perles] 100 mg PO TID PRN #10 cap 08/22/22 [Rx] Mupirocin 2% Oint [Bactroban 2% Oint] 1 applic TOPICAL TID PRN each 08/22/22 [Rx] Nicotine 14Mg/24Hr Patch [Habitrol] 1 patch TRANSDERM DAILY #30 patch 08/22/22 [Rx] predniSONE 10 mg PO DIRECTED #30 tab 08/22/22 [Rx] Follow up Appointment(s)/Referral(s): Edilberto Sabillon MD [Primary Care Provider] - 1-2 days Barrie Olmstead DO [Doctor of Osteopathic Medicine] - 09/02/22 2:30 pm Activity/Diet/Wound Care/Special Instructions: R/T oxygen script: Primary Care provider needs to re-certify the need for continued home oxygen. He needs to send over updated chart notes to [facility] until follow-up Follow-up with primary care provider on discharge Follow-up with pulmonary outpatient in 1-2 weeks Continue taking prednisone taper Avoid Tobacco use and exposure Discharge Disposition: HOME SELF-CARE
== END 2022-08-22 14:51 | disposition home or self-care (01) | DRG 190 ==
LOC: EC 16:09 → 6NMEDSUR 19:36 → OBSVTOIN 08-20 10:05
PROVIDERS: ADMIT Hospitalist; ATTEND Hospitalist
DX: J44.1 Chronic obstructive pulmonary disease with (acute) exacerbation (principal); J96.21 Acute and chronic respiratory failure with hypoxia; Q33.6 Congenital hypoplasia and dysplasia of lung; Q25.5 Atresia of pulmonary artery; Z99.81 Dependence on supplemental oxygen; E11.9 Type 2 diabetes mellitus without complications; F32.A Depression, unspecified; I45.10 Unspecified right bundle-branch block; R00.0 Tachycardia, unspecified; F17.210 Nicotine dependence, cigarettes, uncomplicated; G47.33 Obstructive sleep apnea (adult) (pediatric); M50.30 Other cervical disc degeneration, unspecified cervical region; K21.9 Gastro-esophageal reflux disease without esophagitis; G89.29 Other chronic pain; F41.9 Anxiety disorder, unspecified; M54.50 Low back pain, unspecified; E78.5 Hyperlipidemia, unspecified; J98.01 Acute bronchospasm; Z20.822 Contact with and (suspected) exposure to COVID-19; Z28.311 Partially vaccinated for COVID-19; Z82.5 Family history of asthma and other chronic lower respiratory diseases; Z82.49 Family history of ischemic heart disease and other diseases of the circulatory system; Z98.84 Bariatric surgery status; Z88.0 Allergy status to penicillin; Z91.030 Bee allergy status; Z91.013 Allergy to seafood; Z91.041 Radiographic dye allergy status; Z79.899 Other long term (current) drug therapy; Z79.51 Long term (current) use of inhaled steroids; Z87.19 Personal history of other diseases of the digestive system
CPT/HCPCS: 36415; 71046; 80053; 83036; 83605; 83880; 84484; 85025; 85379; 85610; 85730; 87635; 93005; 94640; 94760; 96374; 96375; 99285

== ENCOUNTER → 2022-09-08 | Outpatient (CLI) | payer OTHER ==
[2022-09-08 20:07] LABS: Eosinophils # (A) 0.35 X 10*3/uL (0.04-0.35); Eosinophils % (A) 3.7 %; HCT 42.6 % (37.2-46.3); HGB 13.5 g/dL (12.0-15.0); Immature Grans, Automated 1.4 %; Lymphocytes # (A) 1.61 X 10*3/uL (0.90-5.00); Lymphocytes % (A) 16.8 %; MCH 30.1 pg (27.0-32.0); MCHC 31.7 g/dL (32.0-37.0); MCV 94.9 fL (80.0-97.0); Mean Platelet Volume 10.2 fL (9.5-12.2); Monocytes # (A) 1.08 X 10*3/uL (0.20-1.00); Monocytes % (A) 11.3 %; NRBC Per 100 WBC 0 /100 WBCS (0.0-0.0); Neutrophils % (A) 65.8 %; Platelet Count 231 X 10*3/uL (140-440); RBC 4.49 X 10*6/uL (4.10-5.20); RDW 13.8 % (11.5-14.5); WBC 9.57 X 10*3/uL (4.50-10.00)
[2022-09-08 20:18] LABS: African American GFR (CKD) 115.8 (60.0-200.0); Albumin/Globulin Ratio 2.03 (1.60-3.17); Anion Gap 6.6 mmol/L (10.00-18.00); BUN/Creat Ratio 17.65 Ratio (12.00-20.00); Calcium 9.2 mg/dL (8.7-10.3); Carbon Dioxide 26.5 mmol/L (20.0-27.5); Non-African American GFR(CKD) 99.9 (60.0-200.0); Potassium 4.4 mmol/L (3.5-5.5); Total Bilirubin 0.7 mg/dL (0.30-1.20); Total Protein 5.9 g/dL (6.2-8.2)
== END | disposition home or self-care (01) ==
LOC: LABWHC1 14:41
PROVIDERS: ATTEND Family Medicine
DX: E55.9 Vitamin D deficiency, unspecified (principal); E78.5 Hyperlipidemia, unspecified
CPT/HCPCS: 36415; 80053; 82306; 85025

== ENCOUNTER → 2022-09-10 | Outpatient (CLI) | payer OTHER | END | disposition home or self-care (01) | LOC: LABWHC1 11:17 | PROVIDERS: ATTEND Family Medicine | DX: E16.2 Hypoglycemia, unspecified (principal) | CPT/HCPCS: 36415; 82947 ==

== ENCOUNTER → 2022-09-29 | Outpatient (CLI) | payer OTHER ==
--- NOTE | 2022-09-30 20:59 | MM ---
Reason for Exam: Screening (asymptomatic). Last mammogram was performed 1 year(s) and 2 month(s) ago. Patient History: Menarche at age 13. First Full-Term at age 26. Postmenopausal. Hormonal Contraceptives for 11 years from age 15 until age 26. Paternal aunt had breast cancer at or over age 50. Mother had breast cancer, age 60. Risk Values: Miri 5 year model risk: 2.0%. NCI Lifetime model risk: 14.7%. Prior Study Comparison: 04/26/2017 Bilateral Diagnostic Mammogram, [facility]. 03/15/2019 Bilateral Screening Mammogram, [facility]. 08/01/2021 Bilateral Screening Mammogram, [facility]. Tissue Density: There are scattered fibroglandular densities. Findings: Analyzed By CAD. Unchanged global asymmetry upper outer quadrant right breast. There is no suspicious group of microcalcifications or new suspicious mass in either breast. Overall Assessment: Benign, BI-RAD 2 Management: Screening Mammogram of both breasts in 1 year. . Patient should continue monthly self-breast exams. A clinical breast exam by your physician is recommended on an annual basis. This exam should not preclude additional follow-up of suspicious palpable abnormalities. Note on Miri scores and lifetime risk: 1. A Miri score greater than 3% is considered moderate risk. If this is the case, consider specialist referral to assess eligibility for a risk reducing agent. 2. If overall lifetime risk for the development of breast cancer is 20% or higher, the patient may qualify for future screening with alternating mammogram and breast MRI. Electronically signed and approved by: Christopher Anand M.D. Radiologist
== END | disposition home or self-care (01) ==
LOC: RADMAMWWP 14:21
PROVIDERS: ATTEND Family Medicine
DX: Z12.31 Encounter for screening mammogram for malignant neoplasm of breast (principal); Z78.0 Asymptomatic menopausal state; Z80.3 Family history of malignant neoplasm of breast
CPT/HCPCS: 77063; 77067

== ENCOUNTER 2022-11-25 14:58 | Observation (INO) | payer OTHER ==
[2022-11-25] MEDS ORDERED: methylPREDNISolone SOD SUCCI 125 MG/2 ML VIAL IM ONE (16:36)
[2022-11-25] MEDS ORDERED: IPRATROPIUM-ALBUTEROL 3 ML NEB INHALATION STA (16:36)
--- NOTE | 2022-11-25 16:57 | XR ---
EXAMINATION TYPE: XR chest 2V DATE OF EXAM: 11/25/2022 COMPARISON: 08/18/22 HISTORY: Shortness of breath TECHNIQUE: Frontal and lateral views of the chest are obtained. FINDINGS: Scattered senescent parenchymal changes noted. Hyperinflation compatible with COPD. No evidence for infiltrate. No evidence for atelectasis. Heart size is stable. Mediastinal structures are stable and grossly unremarkable. No evidence for hilar prominence. Degenerative changes dorsal spine. IMPRESSION: 1. No evidence for acute pulmonary disease.
[2022-11-25] MEDS ORDERED: AZITHROMYCIN 500 MG TAB PO STA (17:55)
[2022-11-25] MEDS ORDERED: IPRATROPIUM-ALBUTEROL 3 ML NEB INHALATION PRN ×2 (18:04→23:07)
--- NOTE | 2022-11-25 20:50 | ED ---
SOB HPI - General Chief Complaint: Upper Respiratory Infection Stated Complaint: Chest congestion/SOB Time Seen by Provider: 11/25/22 16:26 Source: patient Mode of arrival: ambulatory Limitations: no limitations - History of Present Illness Initial Comments: Patient is a 52-year-old female presents the emergency department for shortness of breath. On Wednesday she developed upper respiratory symptoms including productive cough with yellow sputum, congestion, shortness of breath. She saw her primary care provider on Wednesday and was placed on prednisone which she has been taking as directed. She has been doing [id number] DuoNeb breathing treatments. Patient is still feeling short of breath with wheezing. She denies fever, chills, chest pain. Denies nausea and vomiting. Patient states she has not smoked tobacco in a couple of months. - Related Data Home Medications Medication Instructions Recorded Confirmed Atorvastatin [Lipitor] 20 mg PO HS 04/18/20 11/25/22 Ipratropium-Albuterol Nebulize 3 ml INHALATION RT-QID PRN 09/06/21 11/25/22 [Duoneb 0.5 mg-3 mg/3 ml Soln] Montelukast [Singulair] 10 mg PO HS 09/06/21 11/25/22 Budesonide-Formot 160-4.5 Mcg 2 puff INHALATION RT-BID 02/08/22 11/25/22 [Symbicort 160-4.5 Mcg Inhaler] buPROPion XL [Wellbutrin XL] 150 mg PO DAILY 03/16/22 11/25/22 ALPRAZolam [Xanax] 0.25 mg PO HS 08/18/22 11/25/22 Albuterol Sulfate [Ventolin HFA] 1 - 2 puff INHALATION RT-Q6H PRN 08/18/22 11/25/22 Ipratropium/Albuter 20-100Mcg 1 puff INHALATION RT-QID PRN 08/18/22 11/25/22 [Combivent Respimat 20-100Mcg Inhaler] Benzonatate [Tessalon Perle] 200 mg PO TID PRN 11/25/22 11/25/22 Doxycycline Hyclate 100 mg PO BID 11/25/22 11/25/22 Nicotine 21Mg/24Hr Patch [Habitrol] 1 patch TRANSDERM DAILY 11/25/22 11/25/22 predniSONE See Taper PO DIRECTED 11/25/22 11/25/22 Previous Rx's Medication Instructions Recorded Famotidine [Pepcid] 20 mg PO BID #60 tab 03/18/22 busPIRone HCl [Buspar] 5 mg PO BID #60 tab 03/18/22 Acetaminophen Tab [Tylenol] 650 mg PO Q4HR PRN tab 08/22/22 Allergies Allergy/AdvReac Type Severity Reaction Status Date / Time Iodinated Contrast Media Allergy Rash/Hives Verified 11/25/22 18:27 Penicillins Allergy Swelling Verified 11/25/22 18:27 lips pollen extracts Allergy Dyspnea Verified 11/25/22 18:27 shellfish derived [Shellfish] Allergy Anaphylaxis Verified 11/25/22 18:27 Review of Systems ROS Statement: Those systems with pertinent positive or pertinent negative responses have been documented in the HPI. ROS Other: All systems not noted in ROS Statement are negative. Past Medical History Past Medical History: Asthma, COPD, Diabetes Mellitus, Eye Disorder, GERD/Reflux, Pneumonia, Sleep Apnea/CPAP/BIPAP Additional Past Medical History / Comment(s): NIDDM type II(diet controlled following wt. loss), glaucoma bilaterally, tachycardia, AKIRA with CPAP not used the machine since she lost 80 lbs post gastric sleeve, Degenerative disc disease in her back and neck. HX COLITIS. History of rectal diverticulum. 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 History of Any Multi-Drug Resistant Organisms: None Reported Past Surgical History: Bariatric Surgery, Section, Tubal Ligation Additional Past Surgical History / Comment(s): cyst removal under right breast, x 2. gastric sleeve Sx 2016., Colonoscopy 2020. Past Anesthesia/Blood Transfusion Reactions: No Reported Reaction, Motion Sickness Past Psychological History: Anxiety, Depression Smoking Status: Current every day smoker Past Alcohol Use History: None Reported Past Drug Use History: None Reported - Past Family History Mother History Unknown: Yes Family Medical History: Cancer, COPD Additional Family Medical History / Comment(s): Breast cancer. She also has a paternal aunt with breast cancer. Father History Unknown: Yes Family Medical History: COPD, Myocardial Infarction ([place]), Vascular Disorder Additional Family Medical History / Comment(s): Father at age 64yrs. General Exam Limitations: no limitations General appearance: alert, in no apparent distress Neck exam: Present: normal inspection, full ROM. Absent: tenderness, meningismus, lymphadenopathy Respiratory exam: Present: normal lung sounds bilaterally, wheezes (Throughout). Absent: respiratory distress, rales, rhonchi, stridor Cardiovascular Exam: Present: regular rate, normal rhythm, normal heart sounds. Absent: systolic murmur, diastolic murmur, rubs, gallop, clicks Neurological exam: Present: alert, oriented X3, CN II-XII intact Psychiatric exam: Present: normal affect, normal mood Skin exam: Present: warm, dry, intact, normal color. Absent: rash Course Vital Signs 11/25/22 11/25/22 11/25/22 15:12 17:06 17:17 Temperature 99.0 F Pulse Rate 97 90 96 Respiratory 18 Rate Blood Pressure 113/63 O2 Sat by Pulse 95 Oximetry 11/25/22 20:25 Temperature Pulse Rate 85 Respiratory 18 Rate Blood Pressure 149/80 O2 Sat by Pulse 96 Oximetry Medical Decision Making - Medical Decision Making Was pt. sent in by a medical professional or institution (JESSICA Gutierrze, INSTRUCTOR MODELING, urgent care, hospital, or long term...) When possible be specific @ -No Did you speak to anyone other than the patient for history (EMS, parent, family, police, friend...)? What history was obtained from this source @ -No Did you review nursing and triage notes (agree or disagree)? Why? @ -I reviewed and agree with nursing and triage notes Were old charts reviewed (outside hosp., previous admission, EMS record, old EKG, old radiological studies, urgent care reports/EKG's, long term records)? Report findings @ -No old charts were reviewed Differential Diagnosis (chest pain, altered mental status, abdominal pain women, abdominal pain men, vaginal bleeding, weakness, fever, dyspnea, syncope, headache, dizziness, GI bleed, back pain, seizure, CVA, palpatations, mental health)? @ -Differential Dyspnea: Coronary syndrome, arrhythmia, tamponade, asthma, COPD, pulmonary embolism, pneumonia, pneumothorax, pulmonary effusion, anaphylaxis, diabetic ketoacidosis, flailed chest, pulmonary contusion, diaphragmatic rupture, anemia, neuromuscular, this is not meant to be an all-inclusive list. EKG interpreted by me (3pts min.). @ -None X-rays interpreted by me (1pt min.). @ -No acute cardiopulmonary disease CT interpreted by me (1pt min.). @ -None done U/S interpreted by me (1pt. min.). @ -None done What testing was considered but not performed or refused? (CT, X-rays, U/S, labs)? Why? @ -None What meds were considered but not given or refused? Why? @ -None Did you discuss the management of the patient with other professionals (professionals i.e. , PA, INSTRUCTOR MODELING, lab, RT, psych nurse, social welfare research worker, fractionating still operator, teacher, court collections officer, pillowcase cutter)? Give summary @ -No Was smoking cessation discussed for >3mins.? @ -No Was critical care preformed (if so, how long)? @ -No Were there social determinants of health that impacted care today? How? (Homelessness, low income, unemployed, alcoholism, drug addiction, transportation, low edu. Level, literacy, decrease access to med. care, fci, rehab)? @ -No Was there de-escalation of care discussed even if they declined (Discuss DNR or withdrawal of care, Hospice)? DNR status @ -No What co-morbidities impacted this encounter? (DM, HTN, Smoking, COPD, CAD, Cancer, CVA, ARF, Chemo, Hep., AIDS, mental health diagnosis, sleep apnea, morbid obesity)? @ -COPD Was patient admitted / discharged? Hospital course, mention meds given and route, prescriptions, significant lab abnormalities, going to OR and other pertinent info. @ -Admitted for COPD exacerbation. Peri from [facility] accepts admission. No hypoxia or respiratory distress patient admitted in stable condition. Undiagnosed new problem with uncertain prognosis? @ -[o] Drug Therapy requiring intensive monitoring for toxicity (Heparin, Nitro, Insulin, Cardizem)? @ -[o] Were any procedures done? @ -[o] Diagnosis/symptom? @ -COPD exacerbation Acute, or Chronic, or Acute on Chronic? @ Acute Uncomplicated (without systemic symptoms) or Complicated (systemic symptoms)? @ -uncomplicated Side effects of treatment? @ -No Exacerbation, Progression, or Severe Exacerbation? @ -No Poses a threat to life or bodily function? How? (Chest pain, [place], [place], pneumonia, PE, COPD, DKA, ARF, appy, cholecystitis, CVA, Diverticulitis, Homicidal, Suicidal, threat to staff... and all critical care pts) @ -No Dr. Zhao is my - Lab Data Lab Results 11/25/22 Range/Units 16:38 Influenza Type A (PCR) Not Detected (Not Detectd) Influenza Type B (PCR) Not Detected (Not Detectd) RSV (PCR) Not Detected (Not Detectd) SARS-CoV-2 (PCR) Not Detected (Not Detectd) Disposition Clinical Impression: COPD exacerbation Disposition: ADMITTED IP TO THIS HOSP Condition: Stable
[2022-11-25 21:17] LABS: Basophils % (A) 0 %; Eosinophils % (A) 0 %; HGB 14.8 gm/dL (11.4-16.0); Lymphocytes # (A) 0.4 k/uL (1.0-4.8); Lymphocytes % (A) 6 %; MCH 30.5 pg (25.0-35.0); MCHC 32.9 g/dL (31.0-37.0); MCV 92.7 fL (80.0-100.0); Mean Platelet Volume 8.6; Monocytes # (A) 0.2 k/uL (0-1.0); Monocytes % (A) 3 %; Neutrophils % (A) 90 %; Platelet Count 210 k/uL (150-450); RBC 4.85 m/uL (3.80-5.40); WBC 5.6 k/uL (3.8-10.6)
[2022-11-25 21:26] LABS: ALT 24 U/L (4-34); AST 28 U/L (14-36); African American GFR (CKD) >90 (>60 ml/min/1.73 sqM); Albumin 4.3 g/dL (3.5-5.0); Alkaline Phosphatase 132 U/L (38-126); Anion Gap 11 mmol/L; Blood Urea Nitrogen 10 mg/dL (7-17); Calcium 9.4 mg/dL (8.4-10.2); Carbon Dioxide 22 mmol/L (22-30); Chloride 109 mmol/L (98-107); Glucose 199 mg/dL (74-99); Non-African American GFR(CKD) >90 (>60 ml/min/1.73 sqM); Potassium 3.6 mmol/L (3.5-5.1); Sodium 142 mmol/L (137-145); Total Bilirubin 0.4 mg/dL (0.2-1.3)
[2022-11-25 22:13] LABS: Glucose,Whole Blood 297 mg/dL (70-110)
[2022-11-25] MEDS ORDERED: BENZONATATE 100 MG CAP PO PRN (23:07)
[2022-11-25] MEDS ORDERED: NON FORMULARY DRUG (Ipratropium/Albuter 20-100mcg 120 PUFF Each) INHALATION PRN (23:07)
[2022-11-25] MEDS ORDERED: ALBUTEROL NEBULIZED 2.5 MG/3 ML INHALATION PRN (23:07)
[2022-11-25] MEDS ORDERED: ACETAMINOPHEN TAB 325 MG TAB PO PRN (23:07)
[2022-11-25] MEDS ORDERED: DEXTROSE 50% SYRINGE 50 ML IVP PRN ×2 (23:09)
[2022-11-25] MEDS ORDERED: MONTELUKAST 10 MG TAB PO SCH (23:15)
[2022-11-25] MEDS ORDERED: ALPRAZolam 0.25 MG TAB PO SCH (23:15)
[2022-11-25] MEDS ORDERED: ATORVASTATIN 20 MG TAB PO SCH (23:15)
[2022-11-25] MEDS: busPIRone HCl 5 MG TAB PO SCH (23:42)
[2022-11-25] MEDS: FAMOTIDINE 20 MG TAB PO SCH (23:42)
[2022-11-26] MEDS: IPRATROPIUM-ALBUTEROL 3 ML NEB INHALATION SCH ×4 (01:10→15:14)
[2022-11-26] MEDS ORDERED: methylPREDNISolone SOD SUCCI 40 MG/ML 1 ML VIAL IV SCH (05:00)
[2022-11-26 05:51] LABS: Glucose,Whole Blood 113 mg/dL (70-110)
[2022-11-26] MEDS: INSULIN ASPART (NovoLOG) 100 UNIT/ML VIAL SQ SCH ×2 (06:20→12:33)
[2022-11-26] MEDS ORDERED: SYMBICORT 160-4.5 MCG INHALER INHALATION SCH (08:00)
[2022-11-26 08:12] VITALS: RESP 18
[2022-11-26] MEDS ORDERED: methylPREDNISolone SOD SUCCI 125 MG/2 ML VIAL IV SCH ×3 (08:30→12:00)
[2022-11-26] MEDS ORDERED: methylPREDNISolone SOD SUCCI 40 MG/ML 1 ML VIAL IV ONE (08:45)
[2022-11-26] MEDS ORDERED: NICOTINE 21MG/24HR PATCH TRANSDERM SCH (09:00)
[2022-11-26] MEDS ORDERED: buPROPion XL 150 MG TAB.ER.24H PO SCH (09:00)
[2022-11-26] MEDS ORDERED: AZITHROMYCIN 500 MG TAB PO SCH (09:00)
[2022-11-26] MEDS: busPIRone HCl 5 MG TAB PO SCH (09:30)
[2022-11-26] MEDS: FAMOTIDINE 20 MG TAB PO SCH (09:30)
--- NOTE | 2022-11-26 10:53 | P.CNPUL ---
History of Present Illness Consult date: 11/26/22 Requesting physician: Shandra Monge Reason for consult: COPD Chief complaint: Cough, congestion, shortness of breath History of present illness: This is a very pleasant 52-year-old female patient with a known history of hyperlipidemia, diabetes mellitus, gastroesophageal reflux disease, previous obesity status post gastric sleeve and was able to be off CPAP for obstructive sleep apnea, chronic and ongoing tobacco dependence, chronic obstructive pulmonary disease with an FEV1 value 53% of predicted. 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 She follows with Dr. Olmstead in our office. She had been seen earlier in the week by her PCP with complaints of sinus congestion, cough, congestion and yellow sputum and was treated with prednisone without much improvement. She presented here to the emergency room yesterday with complaints of increasing shortness of breath, cough and congestion. Chest x-ray reveals no evidence of acute pulmonary process. White count 5.6. Hemoglobin 14.8. Sodium 142. Potassium 3.6. Bicarb 22. BUN 10. Creatinine 0.50. Glucose 199. Pro-calcitonin 0.02. Influenza screen negative. RSV screen negative. COVID-19 screen negative. She's been initiated on Symbicort, DuoNeb inhalations, IV Solu-Medrol. Empiric antibiotics in the form of azithromycin. NicoDerm patch in place. Review of Systems REVIEW OF SYSTEMS: CONSTITUTIONAL: Denies any recent significant weight loss or weight gain. EYES: Denies change in vision. EARS, NOSE, MOUTH, THROAT: Denies headaches, denies sore throat. CARDIOVASCULAR: Denies chest pain, palpitations or syncopal episodes. RESPIRATORY: Positive for shortness of breath, cough, congestion no hemoptysis. GASTROINTESTINAL: Denies change in appetite, denies abdominal pain GENITOURINARY: Denies hematuria, denies infections. MUSKULOSKELETAL: Denies pain, denies swelling. INTEGUMENTARY: Denies rash, denies eczema. NEUROLOGICAL: Denies recent memory loss, no recent seizure activity. PSYCHIATRIC: Denies anxiety, denies depression. HEMATOLOGIC/LYMPHATIC: Denies anemia, denies enlarged lymph nodes. Past Medical History Past Medical History: Asthma, COPD, Diabetes Mellitus, Eye Disorder, GERD/Reflux , Pneumonia, Sleep Apnea/CPAP/BIPAP Additional Past Medical History / Comment(s): NIDDM type II(diet controlled following wt. loss), glaucoma bilaterally, tachycardia, AKIRA with CPAP not used the machine since she lost 80 lbs post gastric sleeve, Degenerative disc disease in her back and neck. HX COLITIS. History of rectal diverticulum. 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 History of Any Multi-Drug Resistant Organisms: None Reported Past Surgical History: Bariatric Surgery, Section, Tubal Ligation Additional Past Surgical History / Comment(s): cyst removal under right breast, x 2. gastric sleeve Sx 2016., Colonoscopy 2020. Past Anesthesia/Blood Transfusion Reactions: No Reported Reaction, Motion Sickness Past Psychological History: Anxiety, Depression, Panic Disorder Additional Psychological History / Comment(s): Pt resides with her spouse, daughter and grandson. She is normally independent. She uses no assistive device. She drives. She nebulizer and glucose monitor and oxygen prn at home. Smoking Status: Current some day smoker Past Alcohol Use History: None Reported Additional Past Alcohol Use History / Comment(s): Pt states she started smoking in 1986 -Smokes off and on. has not smoked since 11/18/22. on nicotine patch. Past Drug Use History: None Reported - Past Family History Mother History Unknown: Yes Family Medical History: Cancer, COPD Additional Family Medical History / Comment(s): Breast cancer. She also has a paternal aunt with breast cancer. Father History Unknown: Yes Family Medical History: COPD, Myocardial Infarction ([place]), Vascular Disorder Additional Family Medical History / Comment(s): Father at age 64yrs. Medications and Allergies Home Medications Medication Instructions Recorded Confirmed Type Atorvastatin [Lipitor] 20 mg PO HS 04/18/20 11/25/22 History Ipratropium-Albuterol Nebulize 3 ml INHALATION RT-QID PRN 09/06/21 11/25/22 History [Duoneb 0.5 mg-3 mg/3 ml Soln] Montelukast [Singulair] 10 mg PO HS 09/06/21 11/25/22 History Budesonide-Formot 160-4.5 Mcg 2 puff INHALATION RT-BID 02/08/22 11/25/22 History [Symbicort 160-4.5 Mcg Inhaler] buPROPion XL [Wellbutrin XL] 150 mg PO DAILY 03/16/22 11/25/22 History Famotidine [Pepcid] 20 mg PO BID #60 tab 03/18/22 11/25/22 Rx busPIRone HCl [Buspar] 5 mg PO BID #60 tab 03/18/22 11/25/22 Rx ALPRAZolam [Xanax] 0.25 mg PO HS 08/18/22 11/25/22 History Albuterol Sulfate [Ventolin HFA] 1 - 2 puff INHALATION RT-Q6H PRN 08/18/22 11/25/22 History Ipratropium/Albuter 20-100Mcg 1 puff INHALATION RT-QID PRN 08/18/22 11/25/22 History [Combivent Respimat 20-100Mcg Inhaler] Acetaminophen Tab [Tylenol] 650 mg PO Q4HR PRN tab 08/22/22 11/25/22 Rx Benzonatate [Tessalon Perle] 200 mg PO TID PRN 11/25/22 11/25/22 History Doxycycline Hyclate 100 mg PO BID 11/25/22 11/25/22 History Nicotine 21Mg/24Hr Patch [Habitrol] 1 patch TRANSDERM DAILY 11/25/22 11/25/22 History predniSONE See Taper PO DIRECTED 11/25/22 11/25/22 History Allergies Allergy/AdvReac Type Severity Reaction Status Date / Time Iodinated Contrast Media Allergy Rash/Hives Verified 11/25/22 18:27 Penicillins Allergy Swelling Verified 11/25/22 18:27 lips pollen extracts Allergy Dyspnea Verified 11/25/22 18:27 shellfish derived [Shellfish] Allergy Anaphylaxis Verified 11/25/22 18:27 Physical Exam Vitals: Vital Signs Temp Pulse Pulse Resp BP BP Pulse Ox 11/26/22 08:10 76 11/26/22 08:02 96 11/26/22 07:58 74 11/26/22 07:00 98.3 F 65 18 123/66 96 11/26/22 01:40 98.3 F 79 15 109/67 93 L 11/26/22 01:20 90 11/26/22 01:19 95 11/26/22 01:11 88 11/25/22 21:30 99.5 F 99 18 141/79 95 11/25/22 21:18 98.8 F 80 20 141/75 95 11/25/22 20:25 85 18 149/80 96 11/25/22 17:17 96 11/25/22 17:06 90 11/25/22 15:12 99.0 F 97 18 113/63 95 Intake and Output 11/25/22 11/26/22 11/26/22 22:59 06:59 14:59 Intake Total 296 Balance 296 Intake: Oral 296 Other: # Voids 2 1 Weight 68.039 kg GENERAL EXAM: Alert, pleasant 52-year-old female, on 2 L nasal cannula, comfortable in no apparent distress. HEAD: Normocephalic. EYES: Normal reaction of pupils, equal size. NOSE: Clear with pink turbinates. THROAT: No erythema or exudates. NECK: No masses, no JVD. CHEST: No chest wall deformity. LUNGS: Equal air entry with bilateral end x-ray wheeze, diminished. CVS: S1 and S2 normal with no audible murmur, regular rhythm. ABDOMEN: No hepatosplenomegaly, normal bowel sounds, no guarding or rigidity. SPINE: No scoliosis or deformity SKIN: No rashes CENTRAL NERVOUS SYSTEM: No focal deficits, tone is normal in all 4 extremities. EXTREMITIES: There is no peripheral edema. No clubbing, no cyanosis. Peripheral pulses are intact. Results - Laboratory Findings CBC and BMP: 11/25/22 21:08 11/25/22 21:08 Abnormal lab findings: Abnormal Labs 11/25/22 11/25/22 11/25/22 21:08 21:08 22:12 Lymphocytes # 0.4 L Chloride 109 H Creatinine 0.50 L Glucose 199 H POC Glucose (mg/dL) 297 H Alkaline Phosphatase 132 H 11/26/22 05:50 Lymphocytes # Chloride Creatinine Glucose POC Glucose (mg/dL) 113 H Alkaline Phosphatase - Diagnostic Findings Chest x-ray: image reviewed (No acute pulmonary process) Assessment and Plan Assessment: Acute hypoxemic respiratory failure secondary to an acute exacerbation of chronic obstructive pulmonary disease. Chest x-ray shows no acute pulmonary process. Pro-calcitonin 0.02. RSV screen negative. Influenza screen negative. COVID-19 screen negative. Chronic obstructive pulmonary disease with an FEV1 value 53% of predicted. 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 We will continue to follow and make further recommendations based on her clinical status I have personally seen and examined the patient, performed the documentation and the assessment and plan as written. Number of minutes spent on the visit: 20.
[2022-11-26 12:31] LABS: Glucose,Whole Blood 134 mg/dL (70-110)
[2022-11-26 14:33] VITALS: BP 112/61; TEMP 98.1
[2022-11-26 15:26] VITALS: PULSE 64
--- NOTE | 2022-11-26 15:27 | P.HPIM ---
History of Present Illness H&P Date: 11/26/22 This is a 52-year-old female who presented to the emergency department feeling more short of breath and started having a cough with thick yellow sputum and was seen by her doctor Dr. Sabillon in the outpatient setting and started on doxycycline along with a prednisone taper. Patient reports she started feeling worse with increased cough and congestion and was told to come to the ER for evaluation. Chest x-ray in the ER shows no acute process. patient reported feeling continued shortness of breath despite multiple breathing treatments and wheezing patient was given a dose of Solu-Medrol IV and DuoNeb treatments and admitted under observation for COPD exacerbation. Pulmonary placed on cons ultation. Patient follows with Dr. Olmstead in the outpatient setting and was seen and evaluated started on IV steroids along with Zithromax. Patient does have a nebulizer at home along with Combivent inhalers and multiple other breathing inhalational treatments as well as supplemental oxygen as needed. Review Of Systems: Constitutional: No fever, no chills, no night sweats. No weight change. No weakness, fatigue or lethargy. No daytime sleepiness. EENT: No headache. No blurred vision or double vision, no loss of vision. No loss of Hearing, no ringing in the ears, no dizziness. No nasal drainage or congestion. No epistaxis. No sore throat. Lungs: Reports increased shortness of breath, reports cough with sputum production. Reports wheezing. Cardiovascular: No chest pain, no lower extremity edema. No palpitations. No paroxysmal nocturnal dyspnea. No orthopnea. No lightheadedness or dizziness. No syncopal episodes. Abdominal: No abdominal pain. No nausea, vomiting. No diarrhea. No constipation. No bloody or tarry stools.. No loss of appetite. Genitourinary: No dysuria, increased frequency, urgency. No urinary retention. Musculoskeletal: No myalgias. No muscle weakness, no gait dysfunction, no frequent falls. No back pain. No neck pain. Integumentary: No wounds, no lesions. No rash or pruritus. No unusual bruising. No change in hair or nails. Neurologic: No aphasia. No facial droop. No change in mentation. No head injury. No headache. No paralysis. No paresthesia. Psychiatric: No depression. No anxiety. No mood swings. Endocrine: No abnormal blood sugars. No weight change. No excessive sweating or thirst. No cold intolerance. PHYSICAL EXAMINATION: GENERAL: The patient is alert and oriented x4, Well developed, well nourished. HEENT: Pupils are round and equally reacting to light. EOMI. no scleral icterus. No conjunctival pallor. Normocephalic, atraumatic. No pharyngeal erythema. No thyromegaly. CARDIOVASCULAR: S1 and S2 muffled PULMONARY: diminished breath sounds bilaterally with minimal expiratory faint wheezing with scattered rhonchi noted. ABDOMEN: soft. Nontender on exam. obese. non-distended, normoactive bowel sounds. No palpable organomegaly. MUSCULOSKELETAL: No joint swelling or deformity. EXTREMITIES: No cyanosis, clubbing, or pedal edema. NEUROLOGICAL: Gross neurological examination did not reveal any focal deficits. SKIN: No rashes. Assessment: Shortness of breath, secondary to COPD, acute exacerbation Acute on chronic hypoxic respiratory failure secondary to COPD and uses 2 L outpatient as needed History of COPD History of diabetes mellitus, [id number], diet controlled GERD History of obstructive sleep apnea, is not use CPAP since losing weight History of anxiety/depression Continue nicotine use GI prophylaxis DVT prophylaxis Full code Plan: Recommend to continue with current medications and management and pulmonary was consulted and evaluated the patient starting the patient on IV steroids and transitioned doxycycline to Zithromax Patient has been up and walking the halls with no significant shortness of breath and maintained oxygen saturations above 90% on room air. Patient does have supplemental oxygen of 2 L in the home Recommend DuoNeb nebs 4 times a day and when necessary along with Combivent and prednisone taper Patient follow-up with her clinical applications specialist Dr. Olmstead in the outpatient setting in the next 1-2 weeks Patient will likely be discharged this afternoon. The impression and plan of care has been dictated by Amanda Lala nurse pr actitioner as directed. Dr. Conchita MD I have performed a history and examination and MDM of this patient, discussed the same with the dictator, and agree with the dictator's assessment and plan a s written ,documented as a scribe. Based on total visit time, I have performed more than 50% of the visit. Any additional findings or plans will be noted. Past Medical History Past Medical History: Asthma, COPD, Diabetes Mellitus, Eye Disorder, G ERD/Reflux, Pneumonia, Sleep Apnea/CPAP/BIPAP Additional Past Medical History / Comment(s): NIDDM type II(diet controlled following wt. loss), glaucoma bilaterally, tachycardia, AKIRA with CPAP not used the machine since she lost 80 lbs post gastric sleeve, Degenerative disc disease in her back and neck. HX COLITIS. History of rectal diverticulum. 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 History of Any Multi-Drug Resistant Organisms: None Reported Past Surgical History: Bariatric Surgery, Section, Tubal Ligation Additional Past Surgical History / Comment(s): cyst removal under right breast, x 2. gastric sleeve Sx 2016., Colonoscopy 2020. Past Anesthesia/Blood Transfusion Reactions: No Reported Reaction, Motion Sickness Past Psychological History: Anxiety, Depression, Panic Disorder Additional Psychological History / Comment(s): Pt resides with her spouse, daughter and grandson. She is normally independent. She uses no assistive device. She drives. She nebulizer and glucose monitor and oxygen prn at home. Smoking Status: Current some day smoker Past Alcohol Use History: None Reported Additional Past Alcohol Use History / Comment(s): Pt states she started smoking in 1986 -Smokes off and on. has not smoked since 11/18/22. on nicotine patch. Past Drug Use History: None Reported - Past Family History Mother History Unknown: Yes Family Medical History: Cancer, COPD Additional Family Medical History / Comment(s): Breast cancer. She also has a paternal aunt with breast cancer. Father History Unknown: Yes Family Medical History: COPD, Myocardial Infarction ([place]), Vascular Disorder Additional Family Medical History / Comment(s): Father at age 64yrs. Medications and Allergies Home Medications Medication Instructions Recorded Confirmed Type Atorvastatin [Lipitor] 20 mg PO HS 04/18/20 11/25/22 History Ipratropium-Albuterol Nebulize 3 ml INHALATION RT-QID PRN 09/06/21 11/25/22 History [Duoneb 0.5 mg-3 mg/3 ml Soln] Montelukast [Singulair] 10 mg PO HS 09/06/21 11/25/22 History Budesonide-Formot 160-4.5 Mcg 2 puff INHALATION RT-BID 02/08/22 11/25/22 History [Symbicort 160-4.5 Mcg Inhaler] buPROPion XL [Wellbutrin XL] 150 mg PO DAILY 03/16/22 11/25/22 History Famotidine [Pepcid] 20 mg PO BID #60 tab 03/18/22 11/25/22 Rx busPIRone HCl [Buspar] 5 mg PO BID #60 tab 03/18/22 11/25/22 Rx ALPRAZolam [Xanax] 0.25 mg PO HS 08/18/22 11/25/22 History Albuterol Sulfate [Ventolin HFA] 1 - 2 puff INHALATION RT-Q6H PRN 08/18/22 11/25/22 History Ipratropium/Albuter 20-100Mcg 1 puff INHALATION RT-QID PRN 08/18/22 11/25/22 History [Combivent Respimat 20-100Mcg Inhaler] Acetaminophen Tab [Tylenol] 650 mg PO Q4HR PRN tab 08/22/22 11/25/22 Rx Benzonatate [Tessalon Perle] 200 mg PO TID PRN 11/25/22 11/25/22 History Nicotine 21Mg/24Hr Patch [Habitrol] 1 patch TRANSDERM DAILY 11/25/22 11/25/22 H istory predniSONE See Taper PO DIRECTED 11/25/22 11/25/22 History Azithromycin [Zithromax] 500 mg PO DAILY 3 Days #3 tab 11/26/22 Rx Ipratropium-Albuterol Nebulize 3 ml INHALATION RT-QID each 11/26/22 Rx [Duoneb 0.5 mg-3 mg/3 ml Soln] Allergies Allergy/AdvReac Type Severity Reaction Status Date / Time Iodinated Contrast Media Allergy Rash/Hives Verified 11/25/22 18:27 Penicillins Allergy Swelling Verified 11/25/22 18:27 lips pollen extracts Allergy Dyspnea Verified 11/25/22 18:27 shellfish derived [Shellfish] Allergy Anaphylaxis Verified 11/25/22 18:27 Physical Exam Vitals: Vital Signs Temp Pulse Pulse Resp BP BP Pulse Ox 11/26/22 08:10 76 11/26/22 08:02 96 11/26/22 07:58 74 11/26/22 07:00 98.3 F 65 18 123/66 96 11/26/22 01:40 98.3 F 79 15 109/67 93 L 11/26/22 01:20 90 11/26/22 01:19 95 11/26/22 01:11 88 11/25/22 21:30 99.5 F 99 18 141/79 95 11/25/22 21:18 98.8 F 80 20 141/75 95 11/25/22 20:25 85 18 149/80 96 11/25/22 17:17 96 11/25/22 17:06 90 11/25/22 15:12 99.0 F 97 18 113/63 95 Intake and Output 11/25/22 11/26/22 11/26/22 22:59 06:59 14:59 Intake Total 296 Balance 296 Intake: Oral 296 Other: # Voids 2 1 Weight 68.039 kg Results CBC & Chem 7: 11/25/22 21:08 11/25/22 21:08 Labs: Abnormal Lab Results - Last 24 Hours (Table) 11/25/22 11/25/22 11/25/22 Range/Units 21:08 21:08 22:12 Lymphocytes # 0.4 L (1.0-4.8) k/uL Chloride 109 H (98-107) mmol/L Creatinine 0.50 L (0.52-1.04) mg/dL Glucose 199 H (74-99) mg/dL POC Glucose (mg/dL) 297 H (70-110) mg/dL Alkaline Phosphatase 132 H (38-126) U/L 11/26/22 Range/Units 05:50 Lymphocytes # (1.0-4.8) k/uL Chloride (98-107) mmol/L Creatinine (0.52-1.04) mg/dL Glucose (74-99) mg/dL POC Glucose (mg/dL) 113 H (70-110) mg/dL Alkaline Phosphatase (38-126) U/L Thrombosis Risk Factor Assmnt - DVT/VTE Prophylaxis DVT/VTE Prophylaxis: Pharmacologic Prophylaxis ordered - Choose All That Apply Any of the Below Risk Factors Present?: Yes Each Factor Represents 1 point: Abnormal pulmonary function (COPD), Age 41-60 years, Obesity (BMI >25) Other Risk Factors: No Other congenital or acquired thrombophilia - If yes, enter type in comment: No Thrombosis Risk Factor Assessment Total Risk Factor Score: 3 Thrombosis Risk Factor Assessment Level: Moderate Risk Assessment and Plan Time with Patient: Greater than 30
--- NOTE | 2022-11-26 15:37 | P.DS ---
Providers Date of admission: 11/25/22 18:06 Expected date of discharge: 11/26/22 Attending physician: Shandra Monge Consults: 11/26/22 14:49 Consult Physician Routine Consulting Provider: Jb Bates Consult Reason/Comments: copd exac Do you want consulting provider notified?: Yes Primary care physician: Edilberto Sabillon Hospital Course: Final diagnosis Shortness of breath, secondary to COPD, acute exacerbation Acute on chronic hypoxic respiratory failure secondary to COPD and uses 2 L outpatient as needed History of COPD History of diabetes mellitus, [id number], diet controlled GERD History of obstructive sleep apnea, is not use CPAP since losing weight History of anxiety/depression Continue nicotine use GI prophylaxis DVT prophylaxis Full code Discharge disposition Patient is being discharged in a stable condition with guarded prognosis to home. Patient will follow-up with Dr. Sabillon in the outpatient setting upon discharge. Patient is to continue with oral Zithromax and prednisone taper with close outpatient follow-up with pulmonary as scheduled. Total time taken is greater than 35 minutes. Hospital course This is a 52-year-old female who was recently admitted with increasing shortness of breath with cough and congestion and was started on doxycycline and a prednisone taper in the outpatient setting by primary care provider reported feeling worse and was told to come to the ER for further evaluation. Patient was admitted for COPD exacerbation was evaluated by pulmonary started on IV steroids although patient has no wheezing and will continue prednisone taper she was currently started on along with continuing Zithromax for the next 3 days to complete the course. Patient instructed to follow up with pulmonary in the next 1-2 weeks along with primary care provider. Patient to continue on DuoNeb treatments 4 times a day and as needed along with inhalers. Currently no reports of chest pain, shortness of breath, or palpitations. Patient is afebrile. No reports of nausea or vomiting and patient is tolerating diet. Patient will be discharged home today. Physical exam: Gen: This is a 52-year-old female who is awake, alert and oriented 3, well- developed, well-nourished HEENT: Head is atraumatic, normocephalic. Pupils equal, round. Sclerae is anicteric. NECK: Supple. No JVD. No lymphadenopathy. No thyromegaly. LUNGS: Diminished breath sounds bilaterally with no significant wheezes noted, scattered rhonchi is noted. No intercostal retractions. HEART: Regular rate and rhythm. No murmur. ABDOMEN: Soft. Bowel sounds are present. No masses. No tenderness. EXTREMITIES: No pedal edema. No calf tenderness. NEUROLOGICAL: Patient is awake, alert and oriented x3. Cranial nerves 2 through 12 are grossly intact. Please refer to medication reconciliation sheet for a list of medications. The impression and plan of care has been dictated by Amanda Lala, Nurse Practitioner as directed. Dr. Conchita MD I have performed a history and examination and MDM of this patient, discussed the same with the dictator, and agree with the dictator's assessment and plan as written ,documented as a scribe. Based on total visit time, I have performed more than 50% of the visit. Patient Condition at Discharge: Stable Plan - Discharge Summary New Discharge Prescriptions: New Ipratropium-Albuterol Nebulize [Duoneb 0.5 mg-3 mg/3 ml Soln] 3 ml INHALATION RT-QID each Azithromycin [Zithromax] 500 mg PO DAILY 3 Days #3 tab Continue Atorvastatin [Lipitor] 20 mg PO HS Montelukast [Singulair] 10 mg PO HS Budesonide-Formot 160-4.5 Mcg [Symbicort 160-4.5 Mcg Inhaler] 2 puff INHALATION RT-BID busPIRone HCl [Buspar] 5 mg PO BID #60 tab Albuterol Sulfate [Ventolin HFA] 1 - 2 puff INHALATION RT-Q6H PRN PRN Reason: Shortness Of Breath Acetaminophen Tab [Tylenol] 650 mg PO Q4HR PRN tab PRN Reason: Mild Pain Or Fever > 100.5 Nicotine 21Mg/24Hr Patch [Habitrol] 1 patch TRANSDERM DAILY predniSONE See Taper PO DIRECTED Benzonatate [Tessalon Perle] 200 mg PO TID PRN PRN Reason: Cough Ipratropium-Albuterol Nebulize [Duoneb 0.5 mg-3 mg/3 ml Soln] 3 ml INHALATION RT-QID PRN PRN Reason: Shortness Of Breath buPROPion XL [Wellbutrin XL] 150 mg PO DAILY Famotidine [Pepcid] 20 mg PO BID #60 tab ALPRAZolam [Xanax] 0.25 mg PO HS Ipratropium/Albuter 20-100Mcg [Combivent Respimat 20-100Mcg Inhaler] 1 puff INHALATION RT-QID PRN PRN Reason: Shortness Of Breath Discontinued Doxycycline Hyclate 100 mg PO BID Discharge Medication List Atorvastatin [Lipitor] 20 mg PO HS 04/18/20 [History] Ipratropium-Albuterol Nebulize [Duoneb 0.5 mg-3 mg/3 ml Soln] 3 ml INHALATION RT-QID PRN 09/06/21 [History] Montelukast [Singulair] 10 mg PO HS 09/06/21 [History] Budesonide-Formot 160-4.5 Mcg [Symbicort 160-4.5 Mcg Inhaler] 2 puff INHALATION RT-BID 02/08/22 [History] buPROPion XL [Wellbutrin XL] 150 mg PO DAILY 03/16/22 [History] Famotidine [Pepcid] 20 mg PO BID #60 tab 03/18/22 [Rx] busPIRone HCl [Buspar] 5 mg PO BID #60 tab 03/18/22 [Rx] ALPRAZolam [Xanax] 0.25 mg PO HS 08/18/22 [History] Albuterol Sulfate [Ventolin HFA] 1 - 2 puff INHALATION RT-Q6H PRN 08/18/22 [History] Ipratropium/Albuter 20-100Mcg [Combivent Respimat 20-100Mcg Inhaler] 1 puff INHALATION RT-QID PRN 08/18/22 [History] Acetaminophen Tab [Tylenol] 650 mg PO Q4HR PRN tab 08/22/22 [Rx] Benzonatate [Tessalon Perle] 200 mg PO TID PRN 11/25/22 [History] Nicotine 21Mg/24Hr Patch [Habitrol] 1 patch TRANSDERM DAILY 11/25/22 [History] predniSONE See Taper PO DIRECTED 11/25/22 [History] Azithromycin [Zithromax] 500 mg PO DAILY 3 Days #3 tab 11/26/22 [Rx] Ipratropium-Albuterol Nebulize [Duoneb 0.5 mg-3 mg/3 ml Soln] 3 ml INHALATION RT-QID each 11/26/22 [Rx] Follow up Appointment(s)/Referral(s): Edilberto Sabillon MD [Primary Care Provider] - 1 Week Barrie Olmstead DO [Doctor of Osteopathic Medicine] - 1 Week Activity/Diet/Wound Care/Special Instructions: Activity Limited until follow-up Follow-up with primary care provider on discharge Follow-up with pulmonary outpatient in 1-2 weeks Continue antibiotics until finished Continue prednisone taper at her current dosing Discharge Disposition: HOME SELF-CARE
== END 2022-11-26 17:42 | disposition home or self-care (01) ==
LOC: EC 14:58 → 6NMEDSUR 18:06
PROVIDERS: ADMIT Hospitalist; ATTEND Hospitalist
DX: J44.1 Chronic obstructive pulmonary disease with (acute) exacerbation (principal); K21.9 Gastro-esophageal reflux disease without esophagitis; E11.39 Type 2 diabetes mellitus with other diabetic ophthalmic complication; H42 Glaucoma in diseases classified elsewhere; G47.33 Obstructive sleep apnea (adult) (pediatric); F41.9 Anxiety disorder, unspecified; F32.A Depression, unspecified; F17.200 Nicotine dependence, unspecified, uncomplicated; Z79.899 Other long term (current) drug therapy; Z79.51 Long term (current) use of inhaled steroids; Z88.0 Allergy status to penicillin; Z91.041 Radiographic dye allergy status; Z98.84 Bariatric surgery status; Z98.51 Tubal ligation status; Z82.5 Family history of asthma and other chronic lower respiratory diseases; Z80.3 Family history of malignant neoplasm of breast; Z82.49 Family history of ischemic heart disease and other diseases of the circulatory system; Z63.4 Disappearance and death of family member; Z20.822 Contact with and (suspected) exposure to COVID-19
CPT/HCPCS: 96374; 96376; 96372; 99285; 94640 ×3; 94760; 80053; 85025; 83036; 84145; 87636; 71046; G0378 ×2; S4990; J2920; J2930 ×2

== ENCOUNTER → 2023-01-18 | Outpatient (CLI) | payer OTHER ==
[2023-01-18 20:32] LABS: ALT 19 U/L (8-44); AST 14 U/L (13-35); Albumin 4.1 d/dL (3.8-4.9); Albumin/Globulin Ratio 2.28 Ratio (1.60-3.17); Alkaline Phosphatase 100 U/L (41-126); Blood Urea Nitrogen 9.9 mg/dL (9.0-27.0); Calcium 9.5 mg/dL (8.7-10.3); Carbon Dioxide 24.6 mmol/L (21.6-31.8); Chloride 108 mmol/L (96-109); Globulin 1.8 d/dL (1.6-3.3); Glucose 131 mg/dL (70-110); Potassium 3.5 mmol/L (3.5-5.5); Sodium 143 mmol/L (135-145); Total Bilirubin 0.5 mg/dL (0.3-1.2); Total Protein 5.9 d/dL (6.2-8.2)
[2023-01-18 20:59] LABS: Basophils # (A) 0.05 X 10*3/uL (0.00-0.10); Basophils % (A) 0.3 %; Eosinophils # (A) 0.09 X 10*3/uL (0.04-0.35); Eosinophils % (A) 0.5 %; HCT 42.1 % (37.2-46.3); HGB 13.6 d/dL (12.0-15.0); Lymphocytes # (A) 2.88 X 10*3/uL (0.90-5.00); Lymphocytes % (A) 17.2 %; MCHC 32.3 d/dL (32.0-37.0); MCV 92.9 FL (80.0-97.0); Mean Platelet Volume 10.6 FL (9.5-12.2); Monocytes # (A) 1.06 X 10*3/uL (0.20-1.00); Monocytes % (A) 6.3 %; NRBC Per 100 WBC 0 X 10*3/uL (0.00-0.01); Neutrophils # (A) 12.49 X 10*3/uL (1.80-7.70); Neutrophils % (A) 74.7 %; Platelet Count 277 X 10*3/uL (140-440); RBC 4.53 X 10*6/uL (4.10-5.20); RDW 13.4 % (11.5-14.5); WBC 16.74 X 10*3/uL (4.50-10.00)
== END | disposition home or self-care (01) ==
LOC: LABWHC1 15:29
PROVIDERS: ATTEND Family Medicine
DX: E11.9 Type 2 diabetes mellitus without complications (principal); J44.9 Chronic obstructive pulmonary disease, unspecified; E78.5 Hyperlipidemia, unspecified
CPT/HCPCS: 36415; 80053; 83036; 85025

== ENCOUNTER → 2023-03-18 | Outpatient (CLI) | payer OTHER ==
--- NOTE | 2023-03-19 08:39 | CT ---
EXAMINATION TYPE: CT soft tissue neck w con DATE OF EXAM: 03/18/2023 5:49 PM COMPARISON: None HISTORY: soft tissue neck swelling x [address] DLP: 395.2 mGycm Automated exposure control for dose reduction was used. CONTRAST: CT scan of the neck is performed following with IV Contrast, patient injected with 100 cc mL of Isovu e 300. Axial images are obtained, coronal and sagittal reformatted images are reviewed. FINDINGS: Airway: No gross abnormality seen. Parotid/submandibular glands: No gross abnormality seen. Carotid/Vascular Structures: Mild atherosclerotic change of the carotid bifurcation Osseous Structures: Straightening of the cervical spine with multilevel degenerative disc disease mos t marked at C5-6 C6 and C6-C7. Posterior spondylosis, foraminal approach canal stenosis suspected. Other: Oral and area of palpable abnormality is a well-circumscribed fat attenuating lesion measuring 4.5 cm most typical of a subcutaneous soft tissue lipoma. Thyroid enhances homogeneously. Emphysematous changes involving the lung apices. IMPRESSION: 1. Palpable abnormality corresponds to a 4.5 cm fat attenuating mass most typical of benign lipoma. A typical lipoma also in the differential diagnosis.
== END | disposition home or self-care (01) ==
LOC: RADCTMAIN 16:36
PROVIDERS: ATTEND Otolaryngology
DX: R22.1 Localized swelling, mass and lump, neck (principal)
CPT/HCPCS: 70491; Q9967

== ENCOUNTER 2023-04-17 17:11 | Inpatient (IN) | payer OTHER ==
[2023-04-17] MEDS ORDERED: MAGNESIUM SULFATE-D5W PMX 1 GM in DEXTROSE/WATER 1 100ML.BAG IVPB STA (17:29)
[2023-04-17] MEDS ORDERED: methylPREDNISolone SOD SUCCI 125 MG/2 ML VIAL IV STA (17:29)
[2023-04-17] MEDS ORDERED: SODIUM CHLORIDE 0.9% 500 ML 500 ML IV STA (17:29)
[2023-04-17] MEDS ORDERED: IPRATROPIUM-ALBUTEROL 3 ML NEB INHALATION STA ×2 (17:29→18:58)
[2023-04-17 17:49] LABS: Basophils # (A) 0.1 k/uL (0-0.2); Basophils % (A) 0 %; Eosinophils % (A) 0 %; HCT 48.6 % (34.0-46.0); HGB 15.8 gm/dL (11.4-16.0); Lymphocytes # (A) 3.1 k/uL (1.0-4.8); Lymphocytes % (A) 20 %; MCH 30.6 pg (25.0-35.0); MCHC 32.4 g/dL (31.0-37.0); MCV 94.5 fL (80.0-100.0); Mean Platelet Volume 7.7; Monocytes # (A) 0.9 k/uL (0-1.0); Monocytes % (A) 6 %; Neutrophils % (A) 71 %; Platelet Count 342 k/uL (150-450); RBC 5.15 m/uL (3.80-5.40); RDW 13.1 % (11.5-15.5); WBC 15.5 k/uL (3.8-10.6)
[2023-04-17 18:01] LABS: INR 0.8 (<1.2); Partial Thromboplastin Time 22.3 sec (22.0-30.0); Prothrombin Time 9.6 sec (10.0-12.5)
[2023-04-17 18:05] LABS: ALT 20 U/L (4-34); AST 20 U/L (14-36); African American GFR (CKD) >90 (>60 ml/min/1.73 sqM); Albumin 4.6 g/dL (3.5-5.0); Alkaline Phosphatase 109 U/L (38-126); Anion Gap 10 mmol/L; Blood Urea Nitrogen 15 mg/dL (7-17); Calcium 9.9 mg/dL (8.4-10.2); Carbon Dioxide 27 mmol/L (22-30); Chloride 106 mmol/L (98-107); Glucose 104 mg/dL (74-99); Magnesium 2.2 mg/dL (1.6-2.3); Non-African American GFR(CKD) >90 (>60 ml/min/1.73 sqM); Potassium 3.7 mmol/L (3.5-5.1); Sodium 143 mmol/L (137-145); Total Bilirubin 0.7 mg/dL (0.2-1.3); Total Protein 7.4 g/dL (6.3-8.2)
--- NOTE | 2023-04-17 18:24 | XR ---
EXAMINATION TYPE: XR chest 2V DATE OF EXAM: 04/17/2023 6:05 PM CLINICAL INDICATION:Female, 53 years old with history of difficulty breathing; [facility] COMPARISON: 11/25/2022 TECHNIQUE: XR chest 2V Frontal and lateral views of the chest. FINDINGS: Lines/Tubes: No indwelling lines are seen. Lungs/Pleura: Mildly hyperinflated lungs with chronic interstitial coarsening redemonstrated, could b e related to COPD. Mild asymmetric elevation of the left hemidiaphragm with overall mild volume loss in the left hemithorax, as before. No acute infiltrate, sizable effusion or pneumothorax visualized. Small lung nodules may not be visible, and screening outpatient CT chest may be of benefit. Pulmonary vascularity: Unremarkable. Heart/mediastinum: Cardiomediastinal silhouette is unremarkable. Musculoskeletal: No acute osseous pathology. Osseous demineralization and mild degenerative changes. Mild levoscoliosis lower dorsal spine. Other findings: None IMPRESSION: No acute cardiopulmonary disease/process. Probable COPD changes.
[2023-04-17] MEDS ORDERED: NALOXONE 0.4 MG/ML 1 ML VIAL IV PRN (18:55)
--- NOTE | 2023-04-17 18:55 | ED ---
General Adult HPI - General Chief complaint: Shortness of Breath Stated complaint: BRADY Time Seen by Provider: 04/17/23 17:16 Source: patient, RN notes reviewed, old records reviewed Mode of arrival: ambulatory Limitations: no limitations - History of Present Illness Initial comments: Patient is a 53-year-old female with past medical history remarkable for asthma, COPD, diabetes, acid reflux presents emergency department over concern for worsening shortness of breath. 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 Olmstead who evaluated the patient and placed her on steroids as well as an antibiotic but she is not improving. Starting exertional dyspnea. His on when necessary action at home and was saturating 88% on room air desats occasionally into the high 80s which is atypical for her. Endorses cough. Denies any chest pain. Denies any abdominal pain, nausea, vomiting. His no known sick contacts. No other acute complaints at this time. States this feels like an episode where she needs to be admitted which has occurred previously. Presents for further evaluation. - Related Data Home Medications Medication Instructions Recorded Confirmed Atorvastatin [Lipitor] 20 mg PO HS 04/18/20 04/17/23 Ipratropium-Albuterol Nebulize 3 ml INHALATION RT-QID PRN 09/06/21 04/17/23 [Duoneb 0.5 mg-3 mg/3 ml Soln] Montelukast [Singulair] 10 mg PO HS 09/06/21 04/17/23 Budesonide-Formot 160-4.5 Mcg 2 puff INHALATION RT-BID PRN 02/08/22 04/17/23 [Symbicort 160-4.5 Mcg Inhaler] buPROPion XL [Wellbutrin XL] 150 mg PO DAILY 03/16/22 04/17/23 ALPRAZolam [Xanax] 0.25 mg PO HS 08/18/22 04/17/23 Albuterol Sulfate [Ventolin HFA] 1 - 2 puff INHALATION RT-Q6H PRN 08/18/22 04/17/23 Ipratropium/Albuter 20-100Mcg 1 puff INHALATION RT-QID PRN 08/18/22 04/17/23 [Combivent Respimat 20-100Mcg Inhaler] Nicotine 21Mg/24Hr Patch [Habitrol] 1 patch TRANSDERM DAILY PRN 11/25/22 04/17/23 predniSONE See Taper PO DIRECTED 11/25/22 04/17/23 Budesonide [Pulmicort] 1 mg INHALATION RT-BID 04/17/23 04/17/23 Cefdinir 300 mg PO Q12HR 04/17/23 04/17/23 Formoterol Fumarate [Perforomist] 20 mcg INHALATION RT-BID 04/17/23 04/17/23 Previous Rx's Medication Instructions Recorded Famotidine [Pepcid] 20 mg PO BID #60 tab 03/18/22 busPIRone HCl [Buspar] 5 mg PO BID #60 tab 03/18/22 Acetaminophen Tab [Tylenol] 650 mg PO Q4HR PRN tab 08/22/22 Ipratropium-Albuterol Nebulize 3 ml INHALATION RT-QID each 11/26/22 [Duoneb 0.5 mg-3 mg/3 ml Soln] Allergies Allergy/AdvReac Type Severity Reaction Status Date / Time cephalexin [From Keflex] Allergy Swelling Verified 04/17/23 17:48 of lips Iodinated Contrast Media Allergy Rash/Hives Verified 04/17/23 17:48 Penicillins Allergy Swelling Verified 04/17/23 17:48 lips pollen extracts Allergy Dyspnea Verified 04/17/23 17:48 shellfish derived [Shellfish] Allergy Anaphylaxis Verified 04/17/23 17:48 Review of Systems ROS Statement: Those systems with pertinent positive or pertinent negative responses have been documented in the HPI. Review of Systems: CONST: Denies fever EYES: Denies blurry vision ENT: Denies nasal congestion C/V: Denies Chest pain RESP: Endorses shortness of breath GI: Denies abdominal pain : Denies dysuria SKIN: Denies rash. MSK: Denies joint pain. NEURO: Denies headache ROS Other: All systems not noted in ROS Statement are negative. Past Medical History Past Medical History: Asthma, COPD, Diabetes Mellitus, Eye Disorder, GERD/Reflux, Pneumonia, Sleep Apnea/CPAP/BIPAP Additional Past Medical History / Comment(s): NIDDM type II(diet controlled following wt. loss), glaucoma bilaterally, tachycardia, AKIRA with CPAP not used the machine since she lost 80 lbs post gastric sleeve, Degenerative disc disease in her back and neck. HX COLITIS. History of rectal diverticulum. 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 History of Any Multi-Drug Resistant Organisms: None Reported Past Surgical History: Bariatric Surgery, Section, Tubal Ligation Additional Past Surgical History / Comment(s): cyst removal under right breast, x 2. gastric sleeve Sx 2016., Colonoscopy 2020. Past Anesthesia/Blood Transfusion Reactions: No Reported Reaction, Motion Sickness Past Psychological History: Anxiety, Depression, Panic Disorder Smoking Status: Current some day smoker Past Alcohol Use History: None Reported Past Drug Use History: None Reported - Past Family History Mother History Unknown: Yes Family Medical History: Cancer, COPD Additional Family Medical History / Comment(s): Breast cancer. She also has a paternal aunt with breast cancer. Father History Unknown: Yes Family Medical History: COPD, Myocardial Infarction ([place]), Vascular Disorder Additional Family Medical History / Comment(s): Father at age 64yrs. General Exam - General Exam Comments Initial Comments: General: Appears in no acute distress. HEAD: Normal with no signs of head trauma. EYES: PERRLA, EOMI, conjunctiva normal, no discharge. ENT: Hearing grossly intact, normal oropharynx. RESPIRATORY: Diffuse bilateral end expiratory wheezing. Mild increased work of breathing. Hypoxic on room air. Normoxic on 2 L nasal cannula. C/V: Regular rate and rhythm. S1 and S2 auscultated, no edema, peripheral pulses 2+ and intact throughout ABD: Abd is soft, nontender, nondistended EXT: Normal range of motion, no obvious deformity SKIN: No rashes or lesions observed on exposed skin. NEURO: Alert and oriented 4. Limitations: no limitations Course Vital Signs 04/17/23 04/17/23 04/17/23 17:13 17:40 17:51 Temperature 98.3 F Pulse Rate 98 84 Respiratory 20 20 20 Rate Blood Pressure 175/83 168/90 O2 Sat by Pulse 88 L 95 Oximetry 04/17/23 04/17/23 04/17/23 18:06 18:28 18:36 Temperature Pulse Rate 82 80 80 Respiratory 16 Rate Blood Pressure 142/76 O2 Sat by Pulse 96 Oximetry 04/17/23 04/17/23 04/17/23 19:30 19:42 19:53 Temperature Pulse Rate 80 81 92 Respiratory 22 Rate Blood Pressure 135/80 O2 Sat by Pulse 99 Oximetry Medical Decision Making - Medical Decision Making Was pt. sent in by a medical professional or institution (JESSICA Gutierrez, PROJECT DRILLING ENGINEER, urgent care, hospital, or intermediate...) When possible be specific @ -No Did you speak to anyone other than the patient for history (EMS, parent, family, police, friend...)? What history was obtained from this source @ -No Did you review nursing and triage notes (agree or disagree)? Why? @ -I reviewed and agree with nursing and triage notes Were old charts reviewed (outside hosp., previous admission, EMS record, old EKG, old radiological studies, urgent care reports/EKG's, intermediate records)? Report findings @ -Old charts reviewed Differential Diagnosis (chest pain, altered mental status, abdominal pain women, abdominal pain men, vaginal bleeding, weakness, fever, dyspnea, syncope, headache, dizziness, GI bleed, back pain, seizure, CVA, palpatations, mental health, musculoskeletal)? @ -Differential Dyspnea: Coronary syndrome, arrhythmia, tamponade, asthma, COPD, pulmonary embolism, pneumonia, pneumothorax, pulmonary effusion, anaphylaxis, diabetic ketoacidosis, flailed chest, pulmonary contusion, diaphragmatic rupture, anemia, neuromuscular, this is not meant to be an all-inclusive list. EKG interpreted by me (3pts min.). @ -As above X-rays interpreted by me (1pt min.). @ -Chest x-ray reveals no obvious acute cardiopulmonary process, infiltrate. CT interpreted by me (1pt min.). @ -None done U/S interpreted by me (1pt. min.). @ -None done What testing was considered but not performed or refused? (CT, X-rays, U/S, labs)? Why? @ -None What meds were considered but not given or refused? Why? @ -None Did you discuss the management of the patient with other professionals (professionals i.e. JESSICA Gutierrez, PROJECT DRILLING ENGINEER, lab, RT, psych nurse, professor of social work, gill box tender, teacher, human resource officer, telehealth case manager)? Give summary @ -I spoke with ULYSSES Misener of EM accepted the admission. Was smoking cessation discussed for >3mins.? @ -No Was critical care preformed (if so, how long)? @ -No Were there social determinants of health that impacted care today? How? (Homelessness, low income, unemployed, alcoholism, drug addiction, transportation, low edu. Level, literacy, decrease access to med. care, fci, rehab)? @ -No Was there de-escalation of care discussed even if they declined (Discuss DNR or withdrawal of care, Hospice)? DNR status @ -No What co-morbidities impacted this encounter? (DM, HTN, Smoking, COPD, CAD, Cancer, CVA, ARF, Chemo, Hep., AIDS, mental health diagnosis, sleep apnea, morbid obesity)? @ -None Was patient admitted / discharged? Hospital course, mention meds given and route, prescriptions, significant lab abnormalities, going to OR and other pertinent info. @ -Based on the patient's presentation and physical exam I'm concerned for what is likely a COPD exacerbation with failed outpatient treatment. Patient has been on oral steroids, breathing treatments, cefdinir with minimal improvement. Presents for further evaluation and management. We will obtain pulmonary labs and workup. Patient was in agreement this plan. She'll be given multiple breathing treatments, IV steroids. She is also a small fluid bolus. We'll obtain a chest x-ray, EKG as well. Vital signs are remarkable for slight hypoxia on room air which is improved with low amounts of nasal cannula oxygen. Chest x-ray reveals no evidence of acute cardio pulmonary process. EKG within except for limits. Patient's laboratory studies remarkable for a leukocytosis of 15 likely secondary to prednisone use. Remainder the labs within except for limits. Following breathing treatment, she is feeling improved but is still requiring moments of nasal cannula oxygen. She still wheezing. She'll be admitted at this time. She was in agreement this plan. We will continue the cefdinir she was on and start the patient on IV steroids as well as breathing treatments. I spoke with ULYSSES Barry of [facility] accepted the admission. Undiagnosed new problem with uncertain prognosis? @ -No Drug Therapy requiring intensive monitoring for toxicity (Heparin, Nitro, Insulin, Cardizem)? @ -No Were any procedures done? @ -No Diagnosis/symptom? @ -COPD, acute on chronic hypoxic respiratory failure Acute, or Chronic, or Acute on Chronic? @ -Acute on chronic Uncomplicated (without systemic symptoms) or Complicated (systemic symptoms)? @ -Complicated Side effects of treatment? @ -No Exacerbation, Progression, or Severe Exacerbation? @ -Exacerbation Poses a threat to life or bodily function? How? (Chest pain, USA, MT, pneumonia, PE, COPD, DKA, ARF, appy, cholecystitis, CVA, Diverticulitis, Homicidal, Suicidal, threat to staff... and all critical care pts) @ -Yes - Lab Data Result diagrams: 04/17/23 17:29 04/17/23 17:29 Lab Results 04/17/23 04/17/23 04/17/23 Range/Units 17:29 17:29 17:29 WBC 15.5 H (3.8-10.6) k/uL RBC 5.15 (3.80-5.40) m/uL Hgb 15.8 (11.4-16.0) gm/dL Hct 48.6 H (34.0-46.0) % MCV 94.5 (80.0-100.0) fL MCH 30.6 (25.0-35.0) pg MCHC 32.4 (31.0-37.0) g/dL RDW 13.1 (11.5-15.5) % Plt Count 342 (150-450) k/uL MPV 7.7 Neutrophils % 71 % Lymphocytes % 20 % Monocytes % 6 % Eosinophils % 0 % Basophils % 0 % Neutrophils # 11.0 H (1.3-7.7) k/uL Lymphocytes # 3.1 (1.0-4.8) k/uL Monocytes # 0.9 (0-1.0) k/uL Eosinophils # 0.0 (0-0.7) k/uL Basophils # 0.1 (0-0.2) k/uL PT 9.6 L (10.0-12.5) sec INR 0.8 (<1.2) APTT 22.3 (22.0-30.0) sec Sodium 143 (137-145) mmol/L Potassium 3.7 (3.5-5.1) mmol/L Chloride 106 (98-107) mmol/L Carbon Dioxide 27 (22-30) mmol/L Anion Gap 10 mmol/L BUN 15 (7-17) mg/dL Creatinine 0.62 (0.52-1.04) mg/dL Est GFR (CKD-EPI)AfAm >90 (>60 ml/min/1.73 sqM) Est GFR (CKD-EPI)NonAf >90 (>60 ml/min/1.73 sqM) Glucose 104 H (74-99) mg/dL Calcium 9.9 (8.4-10.2) mg/dL Magnesium 2.2 (1.6-2.3) mg/dL Total Bilirubin 0.7 (0.2-1.3) mg/dL AST 20 (14-36) U/L ALT 20 (4-34) U/L Alkaline Phosphatase 109 (38-126) U/L Total Protein 7.4 (6.3-8.2) g/dL Albumin 4.6 (3.5-5.0) g/dL Influenza Type A (PCR) (Not Detectd) Influenza Type B (PCR) (Not Detectd) RSV (PCR) (Not Detectd) SARS-CoV-2 (PCR) (Not Detectd) 04/17/23 Range/Units 17:29 WBC (3.8-10.6) k/uL RBC (3.80-5.40) m/uL Hgb (11.4-16.0) gm/dL Hct (34.0-46.0) % MCV (80.0-100.0) fL MCH (25.0-35.0) pg MCHC (31.0-37.0) g/dL RDW (11.5-15.5) % Plt Count (150-450) k/uL MPV Neutrophils % % Lymphocytes % % Monocytes % % Eosinophils % % Basophils % % Neutrophils # (1.3-7.7) k/uL Lymphocytes # (1.0-4.8) k/uL Monocytes # (0-1.0) k/uL Eosinophils # (0-0.7) k/uL Basophils # (0-0.2) k/uL PT (10.0-12.5) sec INR (<1.2) APTT (22.0-30.0) sec Sodium (137-145) mmol/L Potassium (3.5-5.1) mmol/L Chloride (98-107) mmol/L Carbon Dioxide (22-30) mmol/L Anion Gap mmol/L BUN (7-17) mg/dL Creatinine (0.52-1.04) mg/dL Est GFR (CKD-EPI)AfAm (>60 ml/min/1.73 sqM) Est GFR (CKD-EPI)NonAf (>60 ml/min/1.73 sqM) Glucose (74-99) mg/dL Calcium (8.4-10.2) mg/dL Magnesium (1.6-2.3) mg/dL Total Bilirubin (0.2-1.3) mg/dL AST (14-36) U/L ALT (4-34) U/L Alkaline Phosphatase (38-126) U/L Total Protein (6.3-8.2) g/dL Albumin (3.5-5.0) g/dL Influenza Type A (PCR) Not Detected (Not Detectd) Influenza Type B (PCR) Not Detected (Not Detectd) RSV (PCR) Not Detected (Not Detectd) SARS-CoV-2 (PCR) Not Detected (Not Detectd) - EKG Data -: EKG Interpreted by Me EKG Comments: 12-lead Electrocardiogram Interpretation Note EKG was reviewed and interpreted by myself. 12-lead ECG performed at 1758 is interpreted by me as revealing incomplete right bundle-branch block with normal sinus rhythm at a rate of 82 beats per minute. Left axis deviation. OK interval is 162 ms, QRS duration is 111 ms, QTc is 399 ms.. There were no ST or T wave abnormalities to suggest myocardial ischemia or injury. R wave progressio n across the precordium was satisfactory. By my interpretation this EKG is non- diagnostic for acute ischemia. Disposition Clinical Impression: COPD (chronic obstructive pulmonary disease), Hypoxic respiratory failure Disposition: ADMITTED IP TO THIS HOSP Condition: Stable Time of Disposition: 18:42
[2023-04-17] MEDS ORDERED: SYMBICORT 160-4.5 MCG INHALER INHALATION PRN (18:58)
[2023-04-17] MEDS: ALPRAZolam 0.25 MG TAB PO SCH (20:21)
[2023-04-17] MEDS: FAMOTIDINE 20 MG TAB PO SCH (20:21)
[2023-04-17] MEDS: methylPREDNISolone SOD SUCCI 40 MG/ML 1 ML VIAL IV SCH (20:21)
[2023-04-17] MEDS: busPIRone HCl 5 MG TAB PO SCH (20:21)
[2023-04-17] MEDS: ATORVASTATIN 20 MG TAB PO SCH (20:21)
[2023-04-17] MEDS: MONTELUKAST 10 MG TAB PO SCH (20:22)
[2023-04-17] MEDS: BUDESONIDE 1 MG/2 ML NEBU INHALATION SCH (21:21)
[2023-04-17] MEDS: IPRATROPIUM-ALBUTEROL 3 ML NEB INHALATION SCH ×2 (21:21→23:52)
[2023-04-17] MEDS: FORMOTEROL FUMARATE 20 MCG/2 ML NEBU INHALATION SCH (21:21)
[2023-04-17] MEDS: CEFDINIR 300 MG CAP PO SCH (21:36)
[2023-04-17] MEDS: HEPARIN SODIUM,PORCINE 5,000 UNIT/ML 1 ML VIAL SQ SCH (22:55)
[2023-04-18] MEDS: IPRATROPIUM-ALBUTEROL 3 ML NEB INHALATION SCH ×5 (04:06→20:32)
[2023-04-18] MEDS: FAMOTIDINE 20 MG TAB PO SCH ×2 (08:27→22:16)
[2023-04-18] MEDS: CEFDINIR 300 MG CAP PO SCH ×2 (08:27→22:15)
[2023-04-18] MEDS: busPIRone HCl 5 MG TAB PO SCH ×2 (08:27→22:15)
[2023-04-18] MEDS: methylPREDNISolone SOD SUCCI 40 MG/ML 1 ML VIAL IV SCH ×2 (08:28→22:16)
[2023-04-18] MEDS: HEPARIN SODIUM,PORCINE 5,000 UNIT/ML 1 ML VIAL SQ SCH ×3 (08:28→22:16)
[2023-04-18 08:48] LABS: Basophils # (A) 0.02 X 10*3/uL (0.00-0.10); Basophils % (A) 0.2 %; Blood Urea Nitrogen 13.8 mg/dL (9.0-27.0); Calcium 9.6 mg/dL (8.7-10.3); Carbon Dioxide 24.8 mmol/L (21.6-31.8); Chloride 107 mmol/L (96-109); Eosinophils # (A) 0 X 10*3/uL (0.04-0.35); Eosinophils % (A) 0 %; Glucose 146 mg/dL (70-110); HCT 42.8 % (37.2-46.3); HGB 13.7 g/dL (12.0-15.0); Lymphocytes # (A) 0.75 X 10*3/uL (0.90-5.00); Lymphocytes % (A) 7.4 %; MCV 93.7 FL (80.0-97.0); Mean Platelet Volume 10.2 FL (9.5-12.2); Monocytes # (A) 0.18 X 10*3/uL (0.20-1.00); Monocytes % (A) 1.8 %; NRBC Per 100 WBC 0 X 10*3/uL (0.00-0.01); Neutrophils # (A) 9.07 X 10*3/uL (1.80-7.70); Neutrophils % (A) 89.1 %; Platelet Count 297 X 10*3/uL (140-440); Potassium 4.5 mmol/L (3.5-5.5); RBC 4.57 X 10*6/uL (4.10-5.20); Sodium 143 mmol/L (135-145); WBC 10.17 X 10*3/uL (4.50-10.00)
[2023-04-18] MEDS: BUDESONIDE 1 MG/2 ML NEBU INHALATION SCH (08:58)
[2023-04-18] MEDS: FORMOTEROL FUMARATE 20 MCG/2 ML NEBU INHALATION SCH ×2 (08:58→20:32)
[2023-04-18] MEDS: buPROPion XL 150 MG TAB.ER.24H PO SCH (08:59)
[2023-04-18] MEDS ORDERED: ONDANSETRON 4 MG/2 ML VIAL IVP PRN (09:55)
[2023-04-18] MEDS ORDERED: guaiFENesin-Coden 100-10MG/5ML 10 ML CUP PO PRN (09:55)
[2023-04-18] MEDS ORDERED: HYDROcodone/APAP 5-325MG 1 EACH TAB PO PRN (09:55)
[2023-04-18] MEDS ORDERED: BENZONATATE 100 MG CAP PO PRN (09:55)
[2023-04-18] MEDS: guaiFENesin 600 MG TABLET.ER PO SCH ×2 (10:35→22:16)
[2023-04-18] MEDS: DOXYCYCLINE 100 MG CAP PO SCH ×2 (10:35→22:15)
--- NOTE | 2023-04-18 13:14 | P.HPIM ---
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 Patient followed up with his primary pulmonary doctor Ishan as outpatient and was given steroids and antibiotics however without improvement. 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 She did have Covid in February 2023 and 2 packs fluid for back * Workup initiated in ER included chest x-ray which showed changes consistent with COPD/serum chemistry obtained showed WBC of 15.5 hemoglobin 15.8 platelet count 342 neutrophil elevated at 11, sodium 143 potassium 3.7, natural 27 BUN and creatinine within normal limits liver profile within normal limits * Patient tested negative for influenza, RSV and coronavirus * Workup initiated in ER for COPD exacerbation, patient given IV Solu-Medrol, IV magnesium, breathing treatments IV fluid bolus and admitted to medical floor for further management with consultation from pulmonary medicine REVIEW OF SYSTEMS: Cough, shortness of breath CONSTITUTIONAL: No fever, no malaise, no fatigue. HEENT: No recent visual problems or hearing problems. Denied any sore throat. CARDIOVASCULAR: No chest pain, orthopnea, PND, no palpitations, no syncope. PULMONARY: Cough, shortness of breath GASTROINTESTINAL: No diarrhea, no nausea, no vomiting, no abdominal pain. NEUROLOGICAL: No headaches, no weakness, no numbness. HEMATOLOGICAL: Denies any bleeding or petechiae. GENITOURINARY: Denies any burning micturition, frequency, or urgency. MUSCULOSKELETAL/RHEUMATOLOGICAL: Denies any joint pain, swelling, or any muscle pain. ENDOCRINE: Denies any polyuria or polydipsia. PHYSICAL EXAMINATION: GENERAL: The patient is alert and oriented x3, ill appearance, nasal cannula in place HEENT: Pupils are round and equally reacting to light. EOMI. CARDIOVASCULAR: S1 and S2 present. No murmurs, rubs, or gallops. PULMONARY: Chest is clear to auscultation, no wheezing or crackles. ABDOMEN: Soft, nontender, nondistended, normoactive bowel sounds. No palpable organomegaly. MUSCULOSKELETAL: No joint swelling or deformity. EXTREMITIES: No cyanosis, clubbing, or pedal edema. NEUROLOGICAL: Gross neurological examination did not reveal any focal deficits. Past Medical History Past Medical History: Asthma, COPD, Diabetes Mellitus, Eye Disorder, GERD/Reflux, Pneumonia, Sleep Apnea/CPAP/BIPAP Additional Past Medical History / Comment(s): NIDDM type II(diet controlled following wt. loss), glaucoma bilaterally, tachycardia, AKIRA with CPAP not used the machine since she lost 80 lbs post gastric sleeve, Degenerative disc disease in her back and neck. HX COLITIS. History of rectal diverticulum. 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 History of Any Multi-Drug Resistant Organisms: None Reported Past Surgical History: Bariatric Surgery, Section, Tubal Ligation Additional Past Surgical History / Comment(s): cyst removal under right breast, x 2. gastric sleeve Sx 2016., Colonoscopy 2020. Past Anesthesia/Blood Transfusion Reactions: No Reported Reaction, Motion Sickness Past Psychological History: Anxiety, Depression, Panic Disorder Additional Psychological History / Comment(s): Pt resides with her spouse, daughter and grandson. She is normally independent. She uses no assistive device. She drives. She nebulizer and glucose monitor and oxygen prn at home. Smoking Status: Current some day smoker Past Alcohol Use History: None Reported Additional Past Alcohol Use History / Comment(s): Pt states she started smoking in 1986 -Smokes off and on. has not smoked since 11/18/22. on nicotine patch. Past Drug Use History: None Reported - Past Family History Mother History Unknown: Yes Family Medical History: Cancer, COPD Additional Family Medical History / Comment(s): Breast cancer. She also has a paternal aunt with breast cancer. Father History Unknown: Yes Family Medical History: COPD, Myocardial Infarction (NM), Vascular Disorder Additional Family Medical History / Comment(s): Father at age 64yrs. Medications and Allergies Home Medications Medication Instructions Recorded Confirmed Type Atorvastatin [Lipitor] 20 mg PO HS 04/18/20 04/17/23 History Ipratropium-Albuterol Nebulize 3 ml INHALATION RT-QID PRN 09/06/21 04/17/23 History [Duoneb 0.5 mg-3 mg/3 ml Soln] Montelukast [Singulair] 10 mg PO HS 09/06/21 04/17/23 History Budesonide-Formot 160-4.5 Mcg 2 puff INHALATION RT-BID PRN 02/08/22 04/17/23 History [Symbicort 160-4.5 Mcg Inhaler] buPROPion XL [Wellbutrin XL] 150 mg PO DAILY 03/16/22 04/17/23 History Famotidine [Pepcid] 20 mg PO BID #60 tab 03/18/22 04/17/23 Rx busPIRone HCl [Buspar] 5 mg PO BID #60 tab 03/18/22 04/17/23 Rx ALPRAZolam [Xanax] 0.25 mg PO HS 08/18/22 04/17/23 History Albuterol Sulfate [Ventolin HFA] 1 - 2 puff INHALATION RT-Q6H PRN 08/18/22 04/17/23 History Ipratropium/Albuter 20-100Mcg 1 puff INHALATION RT-QID PRN 08/18/22 04/17/23 History [Combivent Respimat 20-100Mcg Inhaler] Acetaminophen Tab [Tylenol] 650 mg PO Q4HR PRN tab 08/22/22 04/17/23 Rx Nicotine 21Mg/24Hr Patch [Habitrol] 1 patch TRANSDERM DAILY PRN 11/25/22 04/17/23 History predniSONE See Taper PO DIRECTED 11/25/22 04/17/23 History Ipratropium-Albuterol Nebulize 3 ml INHALATION RT-QID each 11/26/22 04/17/23 Rx [Duoneb 0.5 mg-3 mg/3 ml Soln] Budesonide [Pulmicort] 1 mg INHALATION RT-BID 04/17/23 04/17/23 History Cefdinir 300 mg PO Q12HR 04/17/23 04/17/23 History Formoterol Fumarate [Perforomist] 20 mcg INHALATION RT-BID 04/17/23 04/17/23 History Allergies Allergy/AdvReac Type Severity Reaction Status Date / Time cephalexin [From Keflex] Allergy Swelling Verified 04/17/23 17:48 of lips Iodinated Contrast Media Allergy Rash/Hives Verified 04/17/23 17:48 Penicillins Allergy Swelling Verified 04/17/23 17:48 lips pollen extracts Allergy Dyspnea Verified 04/17/23 17:48 shellfish derived [Shellfish] Allergy Anaphylaxis Verified 04/17/23 17:48 Physical Exam Vitals: Vital Signs Temp Pulse Pulse Resp BP BP Pulse Ox 04/18/23 09:23 80 04/18/23 09:11 78 04/18/23 09:00 93 L 04/18/23 08:58 76 04/18/23 07:00 98.0 F 64 16 135/84 94 L 04/18/23 04:16 72 04/18/23 04:07 74 04/18/23 02:36 98.2 F 74 16 115/69 94 L 04/18/23 00:06 78 04/17/23 23:52 78 04/17/23 22:54 98.4 F 92 15 161/74 94 L 04/17/23 19:53 92 04/17/23 19:42 81 04/17/23 19:30 80 22 135/80 99 04/17/23 18:36 80 16 142/76 96 04/17/23 18:28 80 04/17/23 18:06 82 04/17/23 17:51 20 04/17/23 17:40 84 20 168/90 95 04/17/23 17:13 98.3 F 98 20 175/83 88 L Intake and Output 04/17/23 04/18/23 04/18/23 22:59 06:59 14:59 Other: # Voids 2 Weight 68.039 kg Results CBC & Chem 7: 04/18/23 06:20 04/18/23 06:20 Labs: Abnormal Lab Results - Last 24 Hours (Table) 04/17/23 04/17/23 04/17/23 Range/Units 17:29 17:29 17:29 WBC 15.5 H (3.8-10.6) k/uL Hct 48.6 H (34.0-46.0) % Neutrophils # 11.0 H (1.3-7.7) k/uL Lymphocytes # (0.90-5.00) X 10*3/uL Monocytes # (0.20-1.00) X 10*3/uL Eosinophils # (0.04-0.35) X 10*3/uL PT 9.6 L (10.0-12.5) sec BUN/Creatinine Ratio (12.00-20.00) Ratio Glucose 104 H (74-99) mg/dL 04/18/23 04/18/23 Range/Units 06:20 06:20 WBC 10.17 H (3.8-10.6) k/uL Hct (34.0-46.0) % Neutrophils # 9.07 H (1.3-7.7) k/uL Lymphocytes # 0.75 L (0.90-5.00) X 10*3/uL Monocytes # 0.18 L (0.20-1.00) X 10*3/uL Eosinophils # 0 L (0.04-0.35) X 10*3/uL PT (10.0-12.5) sec BUN/Creatinine Ratio 23.00 H (12.00-20.00) Ratio Glucose 146 H (74-99) mg/dL Assessment and Plan Assessment: Assessment and plan * Acute hypoxic respiratory failure * Acute tracheobronchitis/acute exacerbation of COPD * History of obstructive sleep apnea/pulmonary artery atresia * History of dyslipidemia * In regards to acute hypoxic respiratory failure, pulmonary medicine consulted, continue IV Solu-Medrol, continue Ceftin and doxycycline//continue breathing treatments/chest x-ray reviewed * In regards to tracheobronchitis/continue doxycycline and Ceftin * In regards to dyslipidemia continue Lipitor * On subcu heparin for DVT prophylaxis * CODE STATUS full code Time with Patient: Greater than 30
--- NOTE | 2023-04-18 13:55 | P.CNPUL ---
History of Present Illness Consult date: 04/18/23 History of present illness: This is a very pleasant 52-year-old female patient with a known history of hyperlipidemia, diabetes mellitus, gastroesophageal reflux disease, previous obesity status post gastric sleeve and was able to be off CPAP for obstructive sleep apnea, chronic and ongoing tobacco dependence, chronic obstructive pulmonary disease with an FEV1 value 53% of predicted. 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 She follows with Dr. Olmstead in our office. The patient was hospitalized for worseni ng shortness of breath chest tightness and wheezing. The patient was being treated as an outpatient basis with steroids and antibiotics and she did not see any major improvement and for that reason she ended up coming into the hospital for further treatment. The WBC count is at 10.4 with a hemoglobin 13.7, BUN is at 30 with a creatinine of 0.6 and his sodium levels of 143. The chest x-ray is consistent with COPD and chronic volume loss on the left. Review of Systems CONSTITUTIONAL: Denies any recent significant weight loss or weight gain. EYES: Denies change in vision. EARS, NOSE, MOUTH, THROAT: Denies headaches, denies sore throat. CARDIOVASCULAR: Denies chest pain, palpitations or syncopal episodes. RESPIRATORY: Positive for shortness of breath, cough, congestion no hemoptysis. GASTROINTESTINAL: Denies change in appetite, denies abdominal pain GENITOURINARY: Denies hematuria, denies infections. MUSKULOSKELETAL: Denies pain, denies swelling. INTEGUMENTARY: Denies rash, denies eczema. NEUROLOGICAL: Denies recent memory loss, no recent seizure activity. PSYCHIATRIC: Denies anxiety, denies depression. HEMATOLOGIC/LYMPHATIC: Denies anemia, denies enlarged lymph nodes. Constitutional: Reports fatigue Eyes: denies as per HPI, denies blurred vision, denies bulging eye, denies decreased vision, denies diplopia, denies discharge, denies dry eye, denies irritation, denies itching, denies pain, denies photophobia, denies loss of peripheral vision, denies loss of vision, denies tunnel vision/blind spots Ears: deny: decreased hearing, ear discharge, earache, tinnitus Ears, nose, mouth and throat: Reports as per HPI Breasts: absent: as per HPI, change in shape, gynecomastia, masses, nipple discharge, pain, skin changes, swelling Cardiovascular: Reports decreased exercise tolerance, Reports dyspnea on exertion, Reports shortness of breath Respiratory: Reports cough, Reports cough with sputum, Reports dyspnea, Reports home oxygen, Reports snoring, Reports wheezing Gastrointestinal: Reports as per HPI Genitourinary: Reports as per HPI Menstruation: Reports as per HPI Musculoskeletal: Reports as per HPI Musculoskeletal: absent: ankle pain, ankle stiffness, ankle swelling Integumentary: Reports as per HPI Neurological: Reports as per HPI Psychiatric: Reports as per HPI Endocrine: Reports cold intolerance Hematologic/Lymphatic: Reports as per HPI Allergic/Immunologic: Reports as per HPI Past Medical History Past Medical History: Asthma, COPD, Diabetes Mellitus, Eye Disorder, GERD/Reflux, Pneumonia, Sleep Apnea/CPAP/BIPAP Additional Past Medical History / Comment(s): NIDDM type II(diet controlled following wt. loss), glaucoma bilaterally, tachycardia, AKIRA with CPAP not used the machine since she lost 80 lbs post gastric sleeve, Degenerative disc disease in her back and neck. HX COLITIS. History of rectal diverticulum. 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 History of Any Multi-Drug Resistant Organisms: None Reported Past Surgical History: Bariatric Surgery, Section, Tubal Ligation Additional Past Surgical History / Comment(s): cyst removal under right breast, x 2. gastric sleeve Sx 2016., Colonoscopy 2020. Past Anesthesia/Blood Transfusion Reactions: No Reported Reaction, Motion Si ckness Past Psychological History: Anxiety, Depression, Panic Disorder Additional Psychological History / Comment(s): Pt resides with her spouse, thomas hter and grandson. She is normally independent. She uses no assistive device. She drives. She nebulizer and glucose monitor and oxygen prn at home. Smoking Status: Current some day smoker Past Alcohol Use History: None Reported Additional Past Alcohol Use History / Comment(s): Pt states she started smoking in 1986 -Smokes off and on. has not smoked since 11/18/22. on nicotine patch. Past Drug Use History: None Reported - Past Family History Mother History Unknown: Yes Family Medical History: Cancer, COPD Additional Family Medical History / Comment(s): Breast cancer. She also has a paternal aunt with breast cancer. Father History Unknown: Yes Family Medical History: COPD, Myocardial Infarction ([place]), Vascular Disorder Additional Family Medical History / Comment(s): Father at age 64yrs. Medications and Allergies Home Medications Medication Instructions Recorded Confirmed Type Atorvastatin [Lipitor] 20 mg PO HS 04/18/20 04/17/23 History Ipratropium-Albuterol Nebulize 3 ml INHALATION RT-QID PRN 09/06/21 04/17/23 History [Duoneb 0.5 mg-3 mg/3 ml Soln] Montelukast [Singulair] 10 mg PO HS 09/06/21 04/17/23 History Budesonide-Formot 160-4.5 Mcg 2 puff INHALATION RT-BID PRN 02/08/22 04/17/23 History [Symbicort 160-4.5 Mcg Inhaler] buPROPion XL [Wellbutrin XL] 150 mg PO DAILY 03/16/22 04/17/23 History Famotidine [Pepcid] 20 mg PO BID #60 tab 03/18/22 04/17/23 Rx busPIRone HCl [Buspar] 5 mg PO BID #60 tab 03/18/22 04/17/23 Rx ALPRAZolam [Xanax] 0.25 mg PO HS 08/18/22 04/17/23 History Albuterol Sulfate [Ventolin HFA] 1 - 2 puff INHALATION RT-Q6H PRN 08/18/22 04/17/23 History Ipratropium/Albuter 20-100Mcg 1 puff INHALATION RT-QID PRN 08/18/22 04/17/23 History [Combivent Respimat 20-100Mcg Inhaler] Acetaminophen Tab [Tylenol] 650 mg PO Q4HR PRN tab 08/22/22 04/17/23 Rx Nicotine 21Mg/24Hr Patch [Habitrol] 1 patch TRANSDERM DAILY PRN 11/25/22 04/17/23 History predniSONE See Taper PO DIRECTED 11/25/22 04/17/23 History Ipratropium-Albuterol Nebulize 3 ml INHALATION RT-QID each 11/26/22 04/17/23 Rx [Duoneb 0.5 mg-3 mg/3 ml Soln] Budesonide [Pulmicort] 1 mg INHALATION RT-BID 04/17/23 04/17/23 History Cefdinir 300 mg PO Q12HR 04/17/23 04/17/23 History Formoterol Fumarate [Perforomist] 20 mcg INHALATION RT-BID 04/17/23 04/17/23 History Allergies Allergy/AdvReac Type Severity Reaction Status Date / Time cephalexin [From Keflex] Allergy Swelling Verified 04/17/23 17:48 of lips Iodinated Contrast Media Allergy Rash/Hives Verified 04/17/23 17:48 Penicillins Allergy Swelling Verified 04/17/23 17:48 lips pollen extracts Allergy Dyspnea Verified 04/17/23 17:48 shellfish derived [Shellfish] Allergy Anaphylaxis Verified 04/17/23 17:48 Physical Exam Vitals: Vital Signs Temp Pulse Pulse Resp BP BP Pulse Ox 04/18/23 09:23 80 04/18/23 09:11 78 04/18/23 09:00 93 L 04/18/23 08:58 76 04/18/23 07:00 98.0 F 64 16 135/84 94 L 04/18/23 04:16 72 04/18/23 04:07 74 04/18/23 02:36 98.2 F 74 16 115/69 94 L 04/18/23 00:06 78 04/17/23 23:52 78 04/17/23 22:54 98.4 F 92 15 161/74 94 L 04/17/23 19:53 92 04/17/23 19:42 81 04/17/23 19:30 80 22 135/80 99 04/17/23 18:36 80 16 142/76 96 04/17/23 18:28 80 04/17/23 18:06 82 04/17/23 17:51 20 04/17/23 17:40 84 20 168/90 95 04/17/23 17:13 98.3 F 98 20 175/83 88 L Intake and Output 04/17/23 04/18/23 04/18/23 22:59 06:59 14:59 Other: # Voids 2 Weight 68.039 kg GENERAL EXAM: Alert, pleasant 52-year-old female, on 2 L nasal cannula, comfortable in no apparent distress. HEAD: Normocephalic. EYES: Normal reaction of pupils, equal size. NOSE: Clear with pink turbinates. THROAT: No erythema or exudates. NECK: No masses, no JVD. CHEST: No chest wall deformity. LUNGS: Equal air entry with bilateral end x-ray wheeze, diminished. CVS: S1 and S2 normal with no audible murmur, regular rhythm. ABDOMEN: No hepatosplenomegaly, normal bowel sounds, no guarding or rigidity. SPINE: No scoliosis or deformity SKIN: No rashes CENTRAL NERVOUS SYSTEM: No focal deficits, tone is normal in all 4 extremities. EXTREMITIES: There is no peripheral edema. No clubbing, no cyanosis. Peripheral pulses are intact. Results - Laboratory Findings CBC and BMP: 04/18/23 06:20 04/18/23 06:20 PT/INR, D-dimer PT 9.6 sec (10.0-12.5) L 04/17/23 17: INR 0.8 (<1.2) 04/17/23 17:29 Abnormal lab findings: Abnormal Labs 04/17/23 04/17/23 04/17/23 17:29 17:29 17:29 WBC 15.5 H Hct 48.6 H Neutrophils # 11.0 H Lymphocytes # Monocytes # Eosinophils # PT 9.6 L BUN/Creatinine Ratio Glucose 104 H 04/18/23 04/18/23 06:20 06:20 WBC 10.17 H Hct Neutrophils # 9.07 H Lymphocytes # 0.75 L Monocytes # 0.18 L Eosinophils # 0 L PT BUN/Creatinine Ratio 23.00 H Glucose 146 H - Diagnostic Findings Chest x-ray: image reviewed Assessment and Plan Plan: Acute hypoxemic respiratory failure secondary to an acute exacerbation of chronic obstructive pulmonary disease. Chest x-ray shows no acute pulmonary process. Patient failed outpatient treatment patient is currently the hospitalist for inpatient treatment of COPD exacerbation. She is bronchospastic and wheezy. The viral screen is negative. Chronic obstructive pulmonary disease with an FEV1 value 53% of predicted. 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
[2023-04-18] MEDS: NICOTINE 21MG/24HR PATCH TRANSDERM PRN (15:50)
[2023-04-18] MEDS ORDERED: SYMBICORT 80-4.5 MCG INHALER INHALATION SCH (20:00)
[2023-04-18] MEDS: ATORVASTATIN 20 MG TAB PO SCH (22:15)
[2023-04-18] MEDS: ALPRAZolam 0.25 MG TAB PO SCH (22:15)
[2023-04-18] MEDS: MONTELUKAST 10 MG TAB PO SCH (22:16)
[2023-04-19] MEDS: IPRATROPIUM-ALBUTEROL 3 ML NEB INHALATION SCH ×6 (00:26→21:00)
[2023-04-19] MEDS: ACETAMINOPHEN TAB 325 MG TAB PO PRN ×2 (06:40→16:36)
[2023-04-19] MEDS: FORMOTEROL FUMARATE 20 MCG/2 ML NEBU INHALATION SCH ×2 (08:03→21:00)
[2023-04-19] MEDS: BUDESONIDE 1 MG/2 ML NEBU INHALATION SCH ×2 (08:03→21:00)
[2023-04-19] MEDS: buPROPion XL 150 MG TAB.ER.24H PO SCH (08:16)
[2023-04-19] MEDS: methylPREDNISolone SOD SUCCI 40 MG/ML 1 ML VIAL IV SCH ×2 (08:16→20:57)
[2023-04-19] MEDS: CEFDINIR 300 MG CAP PO SCH ×2 (08:16→20:57)
[2023-04-19] MEDS: FAMOTIDINE 20 MG TAB PO SCH ×2 (08:16→20:56)
[2023-04-19] MEDS: HEPARIN SODIUM,PORCINE 5,000 UNIT/ML 1 ML VIAL SQ SCH ×3 (08:16→23:03)
[2023-04-19] MEDS: guaiFENesin 600 MG TABLET.ER PO SCH ×2 (08:17→20:56)
[2023-04-19] MEDS: busPIRone HCl 5 MG TAB PO SCH ×2 (08:17→20:56)
[2023-04-19] MEDS: DOXYCYCLINE 100 MG CAP PO SCH ×2 (08:17→20:56)
[2023-04-19 08:41] LABS: HCT 42.7 % (37.2-46.3); HGB 13.6 g/dL (12.0-15.0); MCH 30.2 pg (27.0-32.0); MCHC 31.9 g/dL (32.0-37.0); MCV 94.7 FL (80.0-97.0); Mean Platelet Volume 10.7 FL (9.5-12.2); NRBC Per 100 WBC 0 X 10*3/uL (0.00-0.01); Platelet Count 297 X 10*3/uL (140-440); RBC 4.51 X 10*6/uL (4.10-5.20); RDW 13.2 % (11.5-14.5); WBC 16.73 X 10*3/uL (4.50-10.00)
[2023-04-19 08:58] LABS: BUN/Creat Ratio 23.12 Ratio (12.00-20.00); Blood Urea Nitrogen 18.5 mg/dL (9.0-27.0); C Reactive Protein <0.30 mg/dL (0.00-0.80); Calcium 9.4 mg/dL (8.7-10.3); Carbon Dioxide 25.3 mmol/L (21.6-31.8); Chloride 108 mmol/L (96-109); Glucose 173 mg/dL (70-110); Potassium 4.3 mmol/L (3.5-5.5); Sodium 144 mmol/L (135-145)
--- NOTE | 2023-04-19 12:58 | P.PN ---
Subjective Progress Note Date: 04/19/23 This is a very pleasant 52-year-old female patient with a known history of hyperlipidemia, diabetes mellitus, gastroesophageal reflux disease, previous obesity status post gastric sleeve and was able to be off CPAP for obstructive sleep apnea, chronic and ongoing tobacco dependence, chronic obstructive pu lmonary disease with an FEV1 value 53% of predicted. 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 She follows with Dr. Olmstead in our office. The patient was hospitalized for worsening shortness of breath chest tightness and wheezing. The patient was being treated as an outpatient basis with steroids and antibiotics and she did not see any major improvement and for that reason she ended up coming into the hospital for further treatment. The WBC count is at 10.4 with a hemoglobin 13.7, BUN is at 30 with a creatinine of 0.6 and his sodium levels of 143. The chest x-ray is consistent with COPD and chronic volume loss on the left. The patient is seen today 04/19/2023 in follow-up on the regular medical floor. She is currently sitting up in bed having breakfast. Awake and alert in no acute distress. Maintaining O2 saturations in the 90s on 2 L/m per nasal cannula. She sells a dry nonproductive cough. Still some bronchospasm and w heezing. Not quite back to her baseline. White count 16.7. Hemoglobin 13.6. Platelets 297. Sodium 144. Potassium 4.3. Bicarb 25. BUN 19. Creatinine 0.8. Glucose 173. C-reactive protein less than 0.30. She is continued on DuoNeb inhalations, Pulmicort and Perforomist inhalations, Solu-Medrol and Singulair. She remains on Tessalon Perles and Mucinex. Empiric antibiotics in the form of Vibramycin. NicoDerm patch in place. Heparin for DVT prophylaxis. Objective - Vital Signs Vital signs: Vital Signs Temp 98.1 F 04/19/23 07:00 Pulse 80 04/19/23 12:23 Resp 16 04/19/23 08:00 BP 166/84 04/19/23 07:00 Pulse Ox 94 L 04/19/23 07:00 FiO2 Intake & Output 04/18/23 04/19/23 04/19/23 18:59 06:59 18:59 Intake Total 591 Output Total 1 Balance -1 591 Intake: Oral 591 Output: Urine/Stool Mix 1 Other: # Voids 2 1 - Exam GENERAL EXAM: Alert, active, 53-year-old female, on 2 L nasal cannula, fairly comfortable in no apparent distress. HEAD: Normocephalic. EYES: Normal reaction of pupils, equal size. NOSE: Clear with pink turbinates. THROAT: No erythema or exudates. NECK: No masses, no JVD. CHEST: No chest wall deformity. LUNGS: Equal air entry with faint end expiratory wheeze. Diminished CVS: S1 and S2 normal with no audible murmur, regular rhythm. ABDOMEN: No hepatosplenomegaly, normal bowel sounds, no guarding or rigidity. SPINE: No scoliosis or deformity SKIN: No rashes CENTRAL NERVOUS SYSTEM: No focal deficits, tone is normal in all 4 extremities. EXTREMITIES: There is no peripheral edema. No clubbing, no cyanosis. Peripheral pulses are intact. - Labs CBC & Chem 7: 04/19/23 06:05 04/19/23 06:05 Labs: Abnormal Lab Results - Last 24 Hours (Table) 04/19/23 04/19/23 Range/Units 06:05 06:05 WBC 16.73 H (4.50-10.00) X 10*3/uL MCHC 31.9 L (32.0-37.0) g/dL BUN/Creatinine Ratio 23.12 H (12.00-20.00) Ratio Glucose 173 H (70-110) mg/dL Assessment and Plan Assessment: Acute hypoxemic respiratory failure secondary to an acute exacerbation of chroni c obstructive pulmonary disease. Chest x-ray shows no acute pulmonary process. Patient failed outpatient treatment. The viral screen is negative. Chronic obstructive pulmonary disease with an FEV1 value 53% of predicted. 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 COVID 19 in February 2023, recovered Hyperlipidemia Gastroesophageal reflux disease Anxiety/depression History of obstructive sleep apnea, not utilizing CPAP, had since lost 80 pounds History of obesity, status post gastric sleeve placement Plan: The patient was seen and evaluated Chest x-ray, medications and labs reviewed Continue the current treatment plan Increase her activity as tolerated Decrease the FiO2 as tolerated Educated regarding the importance of complete smoking cessation NicoDerm patches in place We will continue to follow I have personally seen and examined the patient, performed the documentation and the assessment and plan as written. Number of minutes spent on the visit: 10.
--- NOTE | 2023-04-19 13:14 | P.PN ---
Subjective Progress Note Date: 04/19/23 * 53-year-old lady with past medical history significant for hyperlipidemia, gastric region reflux disease, obesity status post gastric sleeve, obstructive sleep apnea, COPD with FEV1 53% pulmonary artery atresia and hypoplastic left lung syndrome known to pulmonary service was recent COVID-19 in February 2023 presents to the emergency department with complains of shortness of breath that has worsened over the last 1 week. Patient followed up with his primary pulmonary doctor Ishan as outpatient and was given steroids and antibiotics however without improvement. 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 She did have Covid in February 2023 and 2 packs fluid for back * Workup initiated in ER included chest x-ray which showed changes consistent wi th COPD/serum chemistry obtained showed WBC of 15.5 hemoglobin 15.8 platelet count 342 neutrophil elevated at 11, sodium 143 potassium 3.7, natural 27 BUN and creatinine within normal limits liver profile within normal limits * Patient tested negative for influenza, RSV and coronavirus * Workup initiated in ER for COPD exacerbation, patient given IV Solu-Medrol, IV magnesium, breathing treatments IV fluid bolus and admitted to medical floor for further management with consultation from pulmonary medicine * 04/19/23: Patient seen and evaluated bedside, patient says breathing has improved, W BC count elevated likely secondary to steroid use, serum chemistry within normal limits, CRP negative REVIEW OF SYSTEMS: Cough, shortness of breath improved CONSTITUTIONAL: No fever, no malaise, no fatigue. HEENT: No recent visual problems or hearing problems. Denied any sore throat. CARDIOVASCULAR: No chest pain, orthopnea, PND, no palpitations, no syncope. PULMONARY: Cough, shortness of breath GASTROINTESTINAL: No diarrhea, no nausea, no vomiting, no abdominal pain. NEUROLOGICAL: No headaches, no weakness, no numbness. HEMATOLOGICAL: Denies any bleeding or petechiae. GENITOURINARY: Denies any burning micturition, frequency, or urgency. MUSCULOSKELETAL/RHEUMATOLOGICAL: Denies any joint pain, swelling, or any muscle pain. ENDOCRINE: Denies any polyuria or polydipsia. PHYSICAL EXAMINATION: GENERAL: The patient is alert and oriented x3, ill appearance, nasal cannula in place HEENT: Pupils are round and equally reacting to light. EOMI. CARDIOVASCULAR: S1 and S2 present. No murmurs, rubs, or gallops. PULMONARY: Decreased breath sounds bilaterally wheezing audible ABDOMEN: Soft, nontender, nondistended, normoactive bowel sounds. No palpable organomegaly. MUSCULOSKELETAL: No joint swelling or deformity. EXTREMITIES: No cyanosis, clubbing, or pedal edema. NEUROLOGICAL: Gross neurological examination did not reveal any focal deficits. Objective - Vital Signs Vital signs: Vital Signs Temp 98.1 F 04/19/23 07:00 Pulse 80 04/19/23 12:23 Resp 16 04/19/23 08:00 BP 166/84 04/19/23 07:00 Pulse Ox 94 L 04/19/23 07:00 FiO2 Intake & Output 04/18/23 04/19/23 04/19/23 18:59 06:59 18:59 Intake Total 591 Output Total 1 Balance -1 591 Intake: Oral 591 Output: Urine/Stool Mix 1 Other: # Voids 2 1 - Labs CBC & Chem 7: 04/19/23 06:05 04/19/23 06:05 Labs: Abnormal Lab Results - Last 24 Hours (Table) 04/19/23 04/19/23 Range/Units 06:05 06:05 WBC 16.73 H (4.50-10.00) X 10*3/uL MCHC 31.9 L (32.0-37.0) g/dL BUN/Creatinine Ratio 23.12 H (12.00-20.00) Ratio Glucose 173 H (70-110) mg/dL Assessment and Plan Assessment: Assessment and plan * Acute hypoxic respiratory failure * Acute tracheobronchitis/acute exacerbation of COPD * History of obstructive sleep apnea/pulmonary artery atresia * History of dyslipidemia * In regards to acute hypoxic respiratory failure, pulmonary medicine consulted, continue IV Solu-Medrol day 2 , continue Ceftin and doxycycline//continue b reathing treatments/chest x-ray reviewed * In regards to tracheobronchitis/continue doxycycline and Ceftin day 2 * In regards to dyslipidemia continue Lipitor * On subcu heparin for DVT prophylaxis * Patient transition to inpatient expected length of stay greater than 48 hours * CODE STATUS full code
[2023-04-19] MEDS: NICOTINE 21MG/24HR PATCH TRANSDERM PRN (16:41)
[2023-04-19] MEDS: ATORVASTATIN 20 MG TAB PO SCH (20:56)
[2023-04-19] MEDS: ALPRAZolam 0.25 MG TAB PO SCH (20:56)
[2023-04-19] MEDS: MONTELUKAST 10 MG TAB PO SCH (20:56)
[2023-04-19] MEDS: NYSTATIN 100,000 UNIT/ML SUSP 500,000 UNIT/5 ML CUP PO SCH (23:03)
[2023-04-20] MEDS: IPRATROPIUM-ALBUTEROL 3 ML NEB INHALATION SCH ×7 (00:52→23:49)
[2023-04-20] MEDS: BUDESONIDE 1 MG/2 ML NEBU INHALATION SCH ×2 (08:14→19:50)
[2023-04-20] MEDS: FORMOTEROL FUMARATE 20 MCG/2 ML NEBU INHALATION SCH ×2 (08:14→19:50)
[2023-04-20] MEDS: FAMOTIDINE 20 MG TAB PO SCH ×2 (09:07→21:07)
[2023-04-20] MEDS: busPIRone HCl 5 MG TAB PO SCH ×2 (09:07→21:07)
[2023-04-20] MEDS: guaiFENesin 600 MG TABLET.ER PO SCH ×2 (09:07→21:07)
[2023-04-20] MEDS: DOXYCYCLINE 100 MG CAP PO SCH ×2 (09:07→21:07)
[2023-04-20] MEDS: NYSTATIN 100,000 UNIT/ML SUSP 500,000 UNIT/5 ML CUP PO SCH ×4 (09:08→21:06)
[2023-04-20] MEDS: buPROPion XL 150 MG TAB.ER.24H PO SCH (09:08)
[2023-04-20] MEDS: HEPARIN SODIUM,PORCINE 5,000 UNIT/ML 1 ML VIAL SQ SCH ×3 (09:08→23:49)
[2023-04-20] MEDS: methylPREDNISolone SOD SUCCI 40 MG/ML 1 ML VIAL IV SCH ×2 (09:08→21:07)
[2023-04-20 09:09] LABS: HCT 39.5 % (37.2-46.3); HGB 12.6 g/dL (12.0-15.0); MCH 30.3 pg (27.0-32.0); MCHC 31.9 g/dL (32.0-37.0); Mean Platelet Volume 10.4 FL (9.5-12.2); NRBC Per 100 WBC 0 X 10*3/uL (0.00-0.01); Platelet Count 281 X 10*3/uL (140-440); RBC 4.16 X 10*6/uL (4.10-5.20); RDW 13.3 % (11.5-14.5)
[2023-04-20 09:41] LABS: C Reactive Protein <0.30 mg/dL (0.00-0.80)
[2023-04-20 09:53] LABS: BUN/Creat Ratio 22.43 Ratio (12.00-20.00); Blood Urea Nitrogen 15.7 mg/dL (9.0-27.0); Calcium 9.2 mg/dL (8.7-10.3); Chloride 107 mmol/L (96-109); Glucose 298 mg/dL (70-110); Potassium 4.3 mmol/L (3.5-5.5); Sodium 142 mmol/L (135-145)
--- NOTE | 2023-04-20 12:07 | P.PN ---
Subjective Progress Note Date: 04/20/23 * 53-year-old lady with past medical history significant for hyperlipidemia, gastric region reflux disease, obesity status post gastric sleeve, obstructive sleep apnea, COPD with FEV1 53% pulmonary artery atresia and hypoplastic left lung syndrome known to pulmonary service was recent COVID-19 in February 2023 presents to the emergency department with complains of shortness of breath that has worsened over the last 1 week. Patient followed up with his primary pulmonary doctor Ishan as outpatient and was given steroids and antibiotics however without improvement. 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 She did have Covid in February 2023 and 2 packs fluid for back * Workup initiated in ER included chest x-ray which showed changes consistent wi th COPD/serum chemistry obtained showed WBC of 15.5 hemoglobin 15.8 platelet count 342 neutrophil elevated at 11, sodium 143 potassium 3.7, natural 27 BUN and creatinine within normal limits liver profile within normal limits * Patient tested negative for influenza, RSV and coronavirus * Workup initiated in ER for COPD exacerbation, patient given IV Solu-Medrol, IV magnesium, breathing treatments IV fluid bolus and admitted to medical floor for further management with consultation from pulmonary medicine * 04/19/23: Patient seen and evaluated bedside, patient says breathing has improved, W BC count elevated likely secondary to steroid use, serum chemistry within normal limits, CRP negative * 04/20/2023: Patient seen and evaluated bedside, patient states her breathing has improved, seen by pulmonary medicine weaned down on oxygen, patient on 2 L of oxygen W BC count trending down him a CRP negative REVIEW OF SYSTEMS: Cough, shortness of breath improved CONSTITUTIONAL: No fever, no malaise, no fatigue. HEENT: No recent visual problems or hearing problems. Denied any sore throat. CARDIOVASCULAR: No chest pain, orthopnea, PND, no palpitations, no syncope. PULMONARY: Cough, shortness of breath GASTROINTESTINAL: No diarrhea, no nausea, no vomiting, no abdominal pain. NEUROLOGICAL: No headaches, no weakness, no numbness. HEMATOLOGICAL: Denies any bleeding or petechiae. GENITOURINARY: Denies any burning micturition, frequency, or urgency. MUSCULOSKELETAL/RHEUMATOLOGICAL: Denies any joint pain, swelling, or any muscle pain. ENDOCRINE: Denies any polyuria or polydipsia. PHYSICAL EXAMINATION: GENERAL: The patient is alert and oriented x3, ill appearance, nasal cannula in place HEENT: Pupils are round and equally reacting to light. EOMI. CARDIOVASCULAR: S1 and S2 present. No murmurs, rubs, or gallops. PULMONARY: Improved breath sounds bilaterally, minimal wheezing ABDOMEN: Soft, nontender, nondistended, normoactive bowel sounds. No palpable organomegaly. MUSCULOSKELETAL: No joint swelling or deformity. EXTREMITIES: No cyanosis, clubbing, or pedal edema. NEUROLOGICAL: Gross neurological examination did not reveal any focal deficits. Objective - Vital Signs Vital signs: Vital Signs Temp 97.9 F 04/20/23 07:00 Pulse 64 04/20/23 11:56 Resp 12 04/20/23 07:00 BP 146/60 04/20/23 07:00 Pulse Ox 99 04/20/23 07:00 FiO2 Intake & Output 04/19/23 04/20/23 04/20/23 18:59 06:59 18:59 Intake Total 240 Balance 240 Intake: Oral 240 Other: # Voids 2 1 - Labs CBC & Chem 7: 04/20/23 05:43 04/20/23 05:43 Labs: Abnormal Lab Results - Last 24 Hours (Table) 04/20/23 04/20/23 Range/Units 05:43 05:43 WBC 15.60 H (4.50-10.00) X 10*3/uL MCHC 31.9 L (32.0-37.0) g/dL BUN/Creatinine Ratio 22.43 H (12.00-20.00) Ratio Glucose 298 H (70-110) mg/dL
--- NOTE | 2023-04-20 14:08 | P.PN ---
Subjective Progress Note Date: 04/20/23 This is a very pleasant 52-year-old female patient with a known history of hyperlipidemia, diabetes mellitus, gastroesophageal reflux disease, previous obesity status post gastric sleeve and was able to be off CPAP for obstructive sleep apnea, chronic and ongoing tobacco dependence, chronic obstructive pu lmonary disease with an FEV1 value 53% of predicted. 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 She follows with Dr. Olmstead in our office. The patient was hospitalized for worsening shortness of breath chest tightness and wheezing. The patient was being treated as an outpatient basis with steroids and antibiotics and she did not see any major improvement and for that reason she ended up coming into the hospital for further treatment. The WBC count is at 10.4 with a hemoglobin 13.7, BUN is at 30 with a creatinine of 0.6 and his sodium levels of 143. The chest x-ray is consistent with COPD and chronic volume loss on the left. The patient is seen today 04/19/2023 in follow-up on the regular medical floor. She is currently sitting up in bed having breakfast. Awake and alert in no acute distress. Maintaining O2 saturations in the 90s on 2 L/m per nasal cannula. She sells a dry nonproductive cough. Still some bronchospasm and w heezing. Not quite back to her baseline. White count 16.7. Hemoglobin 13.6. Platelets 297. Sodium 144. Potassium 4.3. Bicarb 25. BUN 19. Creatinine 0.8. Glucose 173. C-reactive protein less than 0.30. She is continued on DuoNeb inhalations, Pulmicort and Perforomist inhalations, Solu-Medrol and Singulair. She remains on Tessalon Perles and Mucinex. Empiric antibiotics in the form of Vibramycin. NicoDerm patch in place. Heparin for DVT prophylaxis. The patient is seen today 04/20/2023 in follow-up on the regular medical floor. Bed. Awake and alert in no acute distress. She is feeling better but not quite back to her baseline. Still with a faint end expiratory wheeze. White count 15.6. Hemoglobin 12.6. Platelets 281. Sodium 142. Potassium 4.3. Bicarb 25. BUN 16. Creatinine 0.7. Glucose 298. C-reactive protein less than 0.30. She is continued on DuoNeb inhalations, Pulmicort and Perforomist inhalations, Solu- Medrol and Singulair. She remains on Tessalon Perles and Mucinex. Empiric antibiotics in the form of Vibramycin. NicoDerm patch in place. Heparin for DVT prophylaxis. Objective - Vital Signs Vital signs: Vital Signs Temp 97.9 F 04/20/23 07:00 Pulse 64 04/20/23 11:56 Resp 12 04/20/23 07:00 BP 146/60 04/20/23 07:00 Pulse Ox 99 04/20/23 07:00 FiO2 Intake & Output 04/19/23 04/20/23 04/20/23 18:59 06:59 18:59 Intake Total 240 Balance 240 Intake: Oral 240 Other: # Voids 2 1 1 - Exam GENERAL EXAM: Alert, 53-year-old female, on 2 L nasal cannula, comfortable in no apparent distress. HEAD: Normocephalic. EYES: Normal reaction of pupils, equal size. NOSE: Clear with pink turbinates. THROAT: No erythema or exudates. NECK: No masses, no JVD. CHEST: No chest wall deformity. LUNGS: Equal air entry with faint end expiratory wheeze. Diminished CVS: S1 and S2 normal with no audible murmur, regular rhythm. ABDOMEN: No hepatosplenomegaly, normal bowel sounds, no guarding or rigidity. SPINE: No scoliosis or deformity SKIN: No rashes CENTRAL NERVOUS SYSTEM: No focal deficits, tone is normal in all 4 extremities. EXTREMITIES: There is no peripheral edema. No clubbing, no cyanosis. Peripheral pulses are intact. - Labs CBC & Chem 7: 04/20/23 05:43 04/20/23 05:43 Labs: Abnormal Lab Results - Last 24 Hours (Table) 04/20/23 04/20/23 Range/Units 05:43 05:43 WBC 15.60 H (4.50-10.00) X 10*3/uL MCHC 31.9 L (32.0-37.0) g/dL BUN/Creatinine Ratio 22.43 H (12.00-20.00) Ratio Glucose 298 H (70-110) mg/dL Assessment and Plan Assessment: Acute hypoxemic respiratory failure secondary to an acute exacerbation of chronic obstructive pulmonary disease. Chest x-ray shows no acute pulmonary process. Patient failed outpatient treatment. The viral screen is negative. Chronic obstructive pulmonary disease with an FEV1 value 53% of predicted. 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 We will continue to follow I have personally seen and examined the patient, performed the documentation and the assessment and plan as written. Number of minutes spent on the visit: 10.
[2023-04-20] MEDS: NICOTINE 21MG/24HR PATCH TRANSDERM PRN (16:02)
[2023-04-20] MEDS: ALPRAZolam 0.25 MG TAB PO SCH (21:06)
[2023-04-20] MEDS: ATORVASTATIN 20 MG TAB PO SCH (21:07)
[2023-04-20] MEDS: MONTELUKAST 10 MG TAB PO SCH (21:07)
[2023-04-21] MEDS: IPRATROPIUM-ALBUTEROL 3 ML NEB INHALATION SCH ×3 (04:39→12:06)
[2023-04-21 07:58] VITALS: BP 126/73; RESP 16; TEMP 97.5
[2023-04-21] MEDS: FAMOTIDINE 20 MG TAB PO SCH (08:37)
[2023-04-21] MEDS: methylPREDNISolone SOD SUCCI 40 MG/ML 1 ML VIAL IV SCH (08:37)
[2023-04-21] MEDS: NYSTATIN 100,000 UNIT/ML SUSP 500,000 UNIT/5 ML CUP PO SCH ×2 (08:37→12:53)
[2023-04-21] MEDS: DOXYCYCLINE 100 MG CAP PO SCH (08:37)
[2023-04-21] MEDS: HEPARIN SODIUM,PORCINE 5,000 UNIT/ML 1 ML VIAL SQ SCH (08:38)
[2023-04-21] MEDS: busPIRone HCl 5 MG TAB PO SCH (08:38)
[2023-04-21] MEDS: buPROPion XL 150 MG TAB.ER.24H PO SCH (08:38)
[2023-04-21] MEDS: guaiFENesin 600 MG TABLET.ER PO SCH (08:38)
[2023-04-21] MEDS: BUDESONIDE 1 MG/2 ML NEBU INHALATION SCH (08:39)
[2023-04-21 08:48] LABS: HCT 39.4 % (37.2-46.3); HGB 12.6 g/dL (12.0-15.0); MCH 30.1 pg (27.0-32.0); Mean Platelet Volume 10.5 FL (9.5-12.2); NRBC Per 100 WBC 0 X 10*3/uL (0.00-0.01); Platelet Count 279 X 10*3/uL (140-440); RBC 4.19 X 10*6/uL (4.10-5.20); RDW 13.2 % (11.5-14.5); WBC 17.67 X 10*3/uL (4.50-10.00)
[2023-04-21] MEDS: FORMOTEROL FUMARATE 20 MCG/2 ML NEBU INHALATION SCH (08:55)
[2023-04-21 09:00] LABS: Blood Urea Nitrogen 21.2 mg/dL (9.0-27.0); Calcium 9.3 mg/dL (8.7-10.3); Carbon Dioxide 22.8 mmol/L (21.6-31.8); Chloride 104 mmol/L (96-109); Glucose 332 mg/dL (70-110); Potassium 4.1 mmol/L (3.5-5.5); Sodium 140 mmol/L (135-145)
--- NOTE | 2023-04-21 12:36 | P.DS ---
Providers Date of admission: 04/19/23 12:00 Expected date of discharge: 04/21/23 Attending physician: Rosales Aguilar MD Consults: 04/17/23 18:55 Consult Physician Routine Consulting Provider: Antwon Peralta Consult Reason/Comments: copd exacerbation Do you want consulting provider notified?: Yes Primary care physician: [facility] Course: * 53-year-old lady with past medical history significant for hyperlipidemia, gastric region reflux disease, obesity status post gastric sleeve, obstructive sleep apnea, COPD with FEV1 53% pulmonary artery atresia and hypoplastic left lung syndrome known to pulmonary service was recent COVID-19 in February 2023 presents to the emergency department with complains of shortness of breath that has worsened over the last 1 week. Patient followed up with his primary pulmonary doctor Ishan as outpatient and was given steroids and antibiotics however without improvement. 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 She did have Covid in February 2023 and 2 packs fluid for back * Workup initiated in ER included chest x-ray which showed changes consistent with COPD/serum chemistry obtained showed WBC of 15.5 hemoglobin 15.8 platelet count 342 neutrophil elevated at 11, sodium 143 potassium 3.7, natural 27 BUN and creatinine within normal limits liver profile within normal limits * Patient tested negative for influenza, RSV and coronavirus * Workup initiated in ER for COPD exacerbation, patient given IV Solu-Medrol, IV magnesium, breathing treatments IV fluid bolus and admitted to medical floor for further management with consultation from pulmonary medicine * 04/19/23: Patient seen and evaluated bedside, patient says breathing has improved, W BC count elevated likely secondary to steroid use, serum chemistry within normal limits, CRP negative * 04/20/2023: Patient seen and evaluated bedside, patient states her breathing has improved, seen by pulmonary medicine weaned down on oxygen, patient on 2 L of oxygen W BC count trending down him a CRP negative * 04/21/2023: Patient seen and evaluated bedside, oxygen requirements have remained stable, remains on room air, patient discharged to home with oral antibiotics and steroids PHYSICAL EXAMINATION: GENERAL: The patient is alert and oriented x3, feeling well HEENT: Pupils are round and equally reacting to light. EOMI. CARDIOVASCULAR: S1 and S2 present. No murmurs, rubs, or gallops. PULMONARY: Improved breath sounds bilaterally, wheezing audible ABDOMEN: Soft, nontender, nondistended, normoactive bowel sounds. No palpable organomegaly. MUSCULOSKELETAL: No joint swelling or deformity. EXTREMITIES: No cyanosis, clubbing, or pedal edema. NEUROLOGICAL: Gross neurological examination did not reveal any focal deficits. Assessment: Assessment and plan * Acute hypoxic respiratory failure RESOLVED * Acute tracheobronchitis/acute exacerbation of COPD * History of obstructive sleep apnea/pulmonary artery atresia * History of dyslipidemia * In regards to acute hypoxic respiratory failure, pulmonary medicine consulted, received IV Solu-Medrol, transition to oral prednisone. Discharge on oral antibiotics and prednisone * In regards to tracheobronchitis/continue doxycycline, prescription provided upon discharge, prednisone. * In regards to dyslipidemia continue Lipitor * Patient discharged home Patient Condition at Discharge: Stable Plan - Discharge Summary New Discharge Prescriptions: New predniSONE [Deltasone] 20 mg PO DAILY 5 Days #5 tab guaiFENesin-Coden 100-10MG/5ML [Robitussin AC] 10 ml PO Q6H PRN 5 Days #200 ml PRN Reason: Cough Doxycycline [Vibramycin] 100 mg PO BID 3 Days #6 cap Continue Atorvastatin [Lipitor] 20 mg PO HS Montelukast [Singulair] 10 mg PO HS Budesonide-Formot 160-4.5 Mcg [Symbicort 160-4.5 Mcg Inhaler] 2 puff INHALATION RT-BID PRN PRN Reason: when out of house. busPIRone HCl [Buspar] 5 mg PO BID #60 tab Albuterol Sulfate [Ventolin HFA] 1 - 2 puff INHALATION RT-Q6H PRN PRN Reason: Shortness Of Breath Acetaminophen Tab [Tylenol] 650 mg PO Q4HR PRN tab PRN Reason: Mild Pain Or Fever > 100.5 Nicotine 21Mg/24Hr Patch [Habitrol] 1 patch TRANSDERM DAILY PRN PRN Reason: Nicotine Cravings Ipratropium-Albuterol Nebulize [Duoneb 0.5 mg-3 mg/3 ml Soln] 3 ml INHALATION RT-QID PRN PRN Reason: Shortness Of Breath buPROPion XL [Wellbutrin XL] 150 mg PO DAILY Famotidine [Pepcid] 20 mg PO BID #60 tab ALPRAZolam [Xanax] 0.25 mg PO HS Ipratropium/Albuter 20-100Mcg [Combivent Respimat 20-100Mcg Inhaler] 1 puff INHALATION RT-QID PRN PRN Reason: when out of house Ipratropium-Albuterol Nebulize [Duoneb 0.5 mg-3 mg/3 ml Soln] 3 ml INHALATION RT-QID each Formoterol Fumarate [Perforomist] 20 mcg INHALATION RT-BID Budesonide [Pulmicort] 1 mg INHALATION RT-BID Discontinued predniSONE See Taper PO DIRECTED Cefdinir 300 mg PO Q12HR Discharge Medication List Atorvastatin [Lipitor] 20 mg PO HS 04/18/20 [History] Ipratropium-Albuterol Nebulize [Duoneb 0.5 mg-3 mg/3 ml Soln] 3 ml INHALATION RT-QID PRN 09/06/21 [History] Montelukast [Singulair] 10 mg PO HS 09/06/21 [History] Budesonide-Formot 160-4.5 Mcg [Symbicort 160-4.5 Mcg Inhaler] 2 puff INHALATION RT-BID PRN 02/08/22 [History] buPROPion XL [Wellbutrin XL] 150 mg PO DAILY 03/16/22 [History] Famotidine [Pepcid] 20 mg PO BID #60 tab 03/18/22 [Rx] busPIRone HCl [Buspar] 5 mg PO BID #60 tab 03/18/22 [Rx] ALPRAZolam [Xanax] 0.25 mg PO HS 08/18/22 [History] Albuterol Sulfate [Ventolin HFA] 1 - 2 puff INHALATION RT-Q6H PRN 08/18/22 [History] Ipratropium/Albuter 20-100Mcg [Combivent Respimat 20-100Mcg Inhaler] 1 puff INHALATION RT-QID PRN 08/18/22 [History] Acetaminophen Tab [Tylenol] 650 mg PO Q4HR PRN tab 08/22/22 [Rx] Nicotine 21Mg/24Hr Patch [Habitrol] 1 patch TRANSDERM DAILY PRN 11/25/22 [History] Ipratropium-Albuterol Nebulize [Duoneb 0.5 mg-3 mg/3 ml Soln] 3 ml INHALATION RT-QID each 11/26/22 [Rx] Budesonide [Pulmicort] 1 mg INHALATION RT-BID 04/17/23 [History] Formoterol Fumarate [Perforomist] 20 mcg INHALATION RT-BID 04/17/23 [History] Doxycycline [Vibramycin] 100 mg PO BID 3 Days #6 cap 04/21/23 [Rx] guaiFENesin-Coden 100-10MG/5ML [Robitussin AC] 10 ml PO Q6H PRN 5 Days #200 ml 04/21/23 [Rx] predniSONE [Deltasone] 20 mg PO DAILY 5 Days #5 tab 04/21/23 [Rx] Follow up Appointment(s)/Referral(s): Edilberto Sabillon MD [Primary Care Provider] - 1-2 days Barrie Olmstead DO [Doctor of Osteopathic Medicine] - 1 Week Discharge Disposition: HOME SELF-CARE
--- NOTE | 2023-04-21 12:41 | P.PN ---
Subjective Progress Note Date: 04/21/23 This is a very pleasant 52-year-old female patient with a known history of hyperlipidemia, diabetes mellitus, gastroesophageal reflux disease, previous obesity status post gastric sleeve and was able to be off CPAP for obstructive sleep apnea, chronic and ongoing tobacco dependence, chronic obstructive pu lmonary disease with an FEV1 value 53% of predicted. 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 She follows with Dr. Olmstead in our office. The patient was hospitalized for worsening shortness of breath chest tightness and wheezing. The patient was being treated as an outpatient basis with steroids and antibiotics and she did not see any major improvement and for that reason she ended up coming into the hospital for further treatment. The WBC count is at 10.4 with a hemoglobin 13.7, BUN is at 30 with a creatinine of 0.6 and his sodium levels of 143. The chest x-ray is consistent with COPD and chronic volume loss on the left. The patient is seen today 04/19/2023 in follow-up on the regular medical floor. She is currently sitting up in bed having breakfast. Awake and alert in no acute distress. Maintaining O2 saturations in the 90s on 2 L/m per nasal cannula. She sells a dry nonproductive cough. Still some bronchospasm and w heezing. Not quite back to her baseline. White count 16.7. Hemoglobin 13.6. Platelets 297. Sodium 144. Potassium 4.3. Bicarb 25. BUN 19. Creatinine 0.8. Glucose 173. C-reactive protein less than 0.30. She is continued on DuoNeb inhalations, Pulmicort and Perforomist inhalations, Solu-Medrol and Singulair. She remains on Tessalon Perles and Mucinex. Empiric antibiotics in the form of Vibramycin. NicoDerm patch in place. Heparin for DVT prophylaxis. The patient is seen today 04/20/2023 in follow-up on the regular medical floor. Bed. Awake and alert in no acute distress. She is feeling better but not quite back to her baseline. Still with a faint end expiratory wheeze. White count 15.6. Hemoglobin 12.6. Platelets 281. Sodium 142. Potassium 4.3. Bicarb 25. BUN 16. Creatinine 0.7. Glucose 298. C-reactive protein less than 0.30. She is continued on DuoNeb inhalations, Pulmicort and Perforomist inhalations, Solu- Medrol and Singulair. She remains on Tessalon Perles and Mucinex. Empiric antibiotics in the form of Vibramycin. NicoDerm patch in place. Heparin for DVT prophylaxis. The patient is seen today 04/21/2023 in follow-up on the regular medical floor. She is sitting up in bed. Awake and alert in no acute distress. Feeling back to her baseline. Maintaining good O2 saturation the upper 90s on room air. She's afebrile. Hemodynamically stable. Count 17.6. Hemoglobin 12.6. Platelets 279. Sodium 140. Potassium 4.1. Bicarb 23. BUN 21. Creatinine 0.8. Glucose 332. She is continued on DuoNeb inhalations, Pulmicort and Perforomist inhalations, Solu-Medrol, Singulair. NicoDerm patch in place. Empiric antibiotics in the form of Vibramycin. Objective - Vital Signs Vital signs: Vital Signs Temp 97.5 F L 04/21/23 07:10 Pulse 78 04/21/23 12:18 Resp 16 04/21/23 07:10 BP 126/73 04/21/23 07:10 Pulse Ox 98 04/21/23 07:10 FiO2 Intake & Output 04/20/23 04/21/23 04/21/23 18:59 06:59 18:59 Intake Total 240 118 Balance 240 118 Intake: Oral 240 118 Other: # Voids 1 2 - Exam GENERAL EXAM: Alert, 53-year-old female, sitting up in bed, on room air, comfortable in no apparent distress. HEAD: Normocephalic. EYES: Normal reaction of pupils, equal size. NOSE: Clear with pink turbinates. THROAT: No erythema or exudates. NECK: No masses, no JVD. CHEST: No chest wall deformity. LUNGS: Equal air entry with faint end expiratory wheeze. Diminished CVS: S1 and S2 normal with no audible murmur, regular rhythm. ABDOMEN: No hepatosplenomegaly, normal bowel sounds, no guarding or rigidity. SPINE: No scoliosis or deformity SKIN: No rashes CENTRAL NERVOUS SYSTEM: No focal deficits, tone is normal in all 4 extremities. EXTREMITIES: There is no peripheral edema. No clubbing, no cyanosis. Peripheral pulses are intact. - Labs CBC & Chem 7: 04/21/23 03:43 04/21/23 03:43 Labs: Abnormal Lab Results - Last 24 Hours (Table) 04/21/23 04/21/23 Range/Units 03:43 03:43 WBC 17.67 H (4.50-10.00) X 10*3/uL Anion Gap 13.20 H (4.00-12.00) mmol/L BUN/Creatinine Ratio 26.50 H (12.00-20.00) Ratio Glucose 332 H (70-110) mg/dL Assessment and Plan Assessment: Acute hypoxemic respiratory failure secondary to an acute exacerbation of chronic obstructive pulmonary disease. Chest x-ray shows no acute pulmonary process. Patient failed outpatient treatment. The viral screen is negative. Chronic obstructive pulmonary disease with an FEV1 value 53% of predicted. 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 COVID 19 in February 2023, recovered Hyperlipidemia Gastroesophageal reflux disease Anxiety/depression History of obstructive sleep apnea, not utilizing CPAP, had since lost 80 pounds History of obesity, status post gastric sleeve placement Plan: The patient was seen and evaluated Medications and labs reviewed Currently stable and on room air Again educated regarding complete smoking cessation NicoDerm patch in place Continue her home pulmonary medications Complete a prednisone taper Complete a course of antibiotics Follow-up in our office in 1 week This patient was seen independently by the nurse practitioner I have personally seen and examined the patient, performed the documentation and the assessment and plan as written. Number of minutes spent on the visit: 22.
[2023-04-21 12:45] VITALS: PULSE 78
== END 2023-04-21 14:42 | disposition home or self-care (01) | DRG 189 ==
LOC: EC 17:11 → 6NMEDSUR 18:55 → OBSVTOIN 04-19 12:00 → 6NMEDSUR 04-21 01:40
PROVIDERS: ADMIT Internal Medicine; ATTEND Internal Medicine
DX: J96.01 Acute respiratory failure with hypoxia (principal); Q25.5 Atresia of pulmonary artery; J44.1 Chronic obstructive pulmonary disease with (acute) exacerbation; J44.0 Chronic obstructive pulmonary disease with (acute) lower respiratory infection; E66.9 Obesity, unspecified; F32.A Depression, unspecified; F17.210 Nicotine dependence, cigarettes, uncomplicated; Z86.16 Personal history of COVID-19; K21.9 Gastro-esophageal reflux disease without esophagitis; E78.5 Hyperlipidemia, unspecified; Z68.29 Body mass index [BMI] 29.0-29.9, adult; F41.0 Panic disorder [episodic paroxysmal anxiety]; J20.9 Acute bronchitis, unspecified; T38.0X5A Adverse effect of glucocorticoids and synthetic analogues, initial encounter; X58.XXXA Exposure to other specified factors, initial encounter; Z79.51 Long term (current) use of inhaled steroids; Z98.84 Bariatric surgery status; Z79.84 Long term (current) use of oral hypoglycemic drugs; Z79.899 Other long term (current) drug therapy; Z82.49 Family history of ischemic heart disease and other diseases of the circulatory system; Z20.822 Contact with and (suspected) exposure to COVID-19; Z88.1 Allergy status to other antibiotic agents; Z88.0 Allergy status to penicillin; Z91.041 Radiographic dye allergy status; G47.33 Obstructive sleep apnea (adult) (pediatric); Z87.19 Personal history of other diseases of the digestive system
CPT/HCPCS: 36415; 71046; 80048; 80053; 83735; 85025; 85027; 85610; 85730; 86140; 87636; 93005; 94640; 94760; 96365; 96366; 96375; 96376; 99285

== ENCOUNTER 2023-04-27 22:33 | Observation (INO) | payer OTHER ==
[2023-04-27 23:21] VITALS: TEMP 98.2
[2023-04-27 23:52] LABS: Basophils # (A) 0.1 k/uL (0-0.2); Basophils % (A) 0 %; Eosinophils # (A) 0.1 k/uL (0-0.7); Eosinophils % (A) 0 %; HCT 45.1 % (34.0-46.0); HGB 14.8 gm/dL (11.4-16.0); Lymphocytes # (A) 1.4 k/uL (1.0-4.8); Lymphocytes % (A) 7 %; MCHC 32.9 g/dL (31.0-37.0); MCV 94.2 fL (80.0-100.0); Monocytes % (A) 5 %; Neutrophils # (A) 18.4 k/uL (1.3-7.7); Neutrophils % (A) 86 %; Platelet Count 284 k/uL (150-450); RBC 4.78 m/uL (3.80-5.40); RDW 13.3 % (11.5-15.5); WBC 21.5 k/uL (3.8-10.6)
--- NOTE | 2023-04-27 23:53 | XR ---
EXAM: XR Chest, 2 Views CLINICAL HISTORY: ITS.REASON XR Reason: difficulty breathing TECHNIQUE: Frontal and lateral views of the chest. COMPARISON: No relevant prior studies available. FINDINGS: Lungs: Atelectasis at the lung bases. Pleural space: Unremarkable. No pneumothorax. Heart: Cardiomegaly. Mediastinum: Unremarkable. Normal mediastinal contour. Bones/joints: Unremarkable. No acute fracture. IMPRESSION: No acute findings in the chest.
[2023-04-28 00:07] LABS: INR 0.9 (<1.2); Prothrombin Time 10.1 sec (10.0-12.5)
[2023-04-28 00:11] LABS: ALT 36 U/L (4-34); AST 20 U/L (14-36); African American GFR (CKD) >90 (>60 ml/min/1.73 sqM); Alkaline Phosphatase 110 U/L (38-126); Anion Gap 10 mmol/L; Blood Urea Nitrogen 28 mg/dL (7-17); Carbon Dioxide 23 mmol/L (22-30); Chloride 104 mmol/L (98-107); Glucose 112 mg/dL (74-99); Non-African American GFR(CKD) 87 (>60 ml/min/1.73 sqM); Potassium 4.3 mmol/L (3.5-5.1); Sodium 137 mmol/L (137-145); Total Bilirubin 0.7 mg/dL (0.2-1.3); Total Protein 6.4 g/dL (6.3-8.2)
[2023-04-28] MEDS ORDERED: SODIUM CHLORIDE 0.9% 1,000 ML IV STA (02:29)
[2023-04-28] MEDS ORDERED: IPRATROPIUM-ALBUTEROL 3 ML NEB INHALATION STA (02:29)
[2023-04-28] MEDS ORDERED: methylPREDNISolone SOD SUCCI 40 MG/ML 1 ML VIAL IV STA (02:29)
[2023-04-28] MEDS ORDERED: ACETAMINOPHEN TAB 325 MG TAB PO PRN (03:33)
[2023-04-28] MEDS ORDERED: NALOXONE 0.4 MG/ML 1 ML VIAL IV PRN (03:33)
[2023-04-28] MEDS ORDERED: LEVOFLOXACIN 750MG-D5W PMX 750 MG in DEXTROSE/WATER 1 150ML.BAG IVPB STA (03:36)
--- NOTE | 2023-04-28 03:39 | ED ---
General Adult HPI - General Chief complaint: Shortness of Breath Stated complaint: Shortness of Breath, Cough Time Seen by Provider: 04/28/23 02:22 Source: patient, RN notes reviewed, old records reviewed Mode of arrival: ambulatory Limitations: no limitations - History of Present Illness Initial comments: Patient is a 53-year-old female presents emergency Department pointing of worsening shortness of breath. I evaluated the patient on her last admission. She has a history of asthma, COPD with oxygen as needed at home. States she was discharged home after a multiple day stay for COPD. Was discharged home on oral antibiotics as well as prednisone. States she initially improved but over the last couple days has worsened. Particularly worse over the last day or so. States she has significant exertional dyspnea. She is still on 30 mg of pr ednisone daily. Denies any other acute complaints at this time other than a mild productive cough. No chest pain, abdominal pain, nausea, vomiting. Since her further evaluation. Workup started in triage. I evaluated the patient when she was placed in a room. - Related Data Home Medications Medication Instructions Recorded Confirmed Atorvastatin [Lipitor] 20 mg PO HS 04/18/20 04/17/23 Ipratropium-Albuterol Nebulize 3 ml INHALATION RT-QID PRN 09/06/21 04/17/23 [Duoneb 0.5 mg-3 mg/3 ml Soln] Montelukast [Singulair] 10 mg PO HS 09/06/21 04/17/23 Budesonide-Formot 160-4.5 Mcg 2 puff INHALATION RT-BID PRN 02/08/22 04/17/23 [Symbicort 160-4.5 Mcg Inhaler] buPROPion XL [Wellbutrin XL] 150 mg PO DAILY 03/16/22 04/17/23 ALPRAZolam [Xanax] 0.25 mg PO HS 08/18/22 04/17/23 Albuterol Sulfate [Ventolin HFA] 1 - 2 puff INHALATION RT-Q6H PRN 08/18/22 04/17/23 Ipratropium/Albuter 20-100Mcg 1 puff INHALATION RT-QID PRN 08/18/22 04/17/23 [Combivent Respimat 20-100Mcg Inhaler] Nicotine 21Mg/24Hr Patch [Habitrol] 1 patch TRANSDERM DAILY PRN 11/25/22 04/17/23 Budesonide [Pulmicort] 1 mg INHALATION RT-BID 04/17/23 04/17/23 Formoterol Fumarate [Perforomist] 20 mcg INHALATION RT-BID 04/17/23 04/17/23 Previous Rx's Medication Instructions Recorded Famotidine [Pepcid] 20 mg PO BID #60 tab 03/18/22 busPIRone HCl [Buspar] 5 mg PO BID #60 tab 03/18/22 Acetaminophen Tab [Tylenol] 650 mg PO Q4HR PRN tab 08/22/22 Ipratropium-Albuterol Nebulize 3 ml INHALATION RT-QID each 11/26/22 [Duoneb 0.5 mg-3 mg/3 ml Soln] Doxycycline [Vibramycin] 100 mg PO BID 3 Days #6 cap 04/21/23 guaiFENesin-Coden 100-10MG/5ML 10 ml PO Q6H PRN 5 Days #200 ml 04/21/23 [Robitussin AC] predniSONE [Deltasone] 20 mg PO DAILY 5 Days #5 tab 04/21/23 Allergies Allergy/AdvReac Type Severity Reaction Status Date / Time cephalexin [From Keflex] Allergy Swelling Verified 04/27/23 23:06 of lips Iodinated Contrast Media Allergy Rash/Hives Verified 04/27/23 23:06 Penicillins Allergy Swelling Verified 04/27/23 23:06 lips pollen extracts Allergy Dyspnea Verified 04/27/23 23:06 shellfish derived [Shellfish] Allergy Anaphylaxis Verified 04/27/23 23:06 Review of Systems ROS Statement: Those systems with pertinent positive or pertinent negative responses have been documented in the HPI. Review of Systems: CONST: Denies fever EYES: Denies blurry vision ENT: Denies nasal congestion C/V: Denies Chest pain RESP: Endorses shortness of breath GI: Denies abdominal pain : Denies dysuria SKIN: Denies rash. MSK: Denies joint pain. NEURO: Denies headache ROS Other: All systems not noted in ROS Statement are negative. Past Medical History Past Medical History: Asthma, COPD, Diabetes Mellitus, Eye Disorder, GERD/Reflux, Pneumonia, Sleep Apnea/CPAP/BIPAP Additional Past Medical History / Comment(s): NIDDM type II(diet controlled following wt. loss), glaucoma bilaterally, tachycardia, AKIRA with CPAP not used the machine since she lost 80 lbs post gastric sleeve, Degenerative disc disease in her back and neck. HX COLITIS. History of rectal diverticulum. 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 History of Any Multi-Drug Resistant Organisms: None Reported Past Surgical History: Bariatric Surgery, Section, Tubal Ligation Additional Past Surgical History / Comment(s): cyst removal under right breast, x 2. gastric sleeve Sx 2016., Colonoscopy 2020. Past Anesthesia/Blood Transfusion Reactions: No Reported Reaction, Motion Sickness Past Psychological History: Anxiety, Depression, Panic Disorder Smoking Status: Current some day smoker Past Alcohol Use History: None Reported Past Drug Use History: None Reported - Past Family History Mother History Unknown: Yes Family Medical History: Cancer, COPD Additional Family Medical History / Comment(s): Breast cancer. She also has a paternal aunt with breast cancer. Father History Unknown: Yes Family Medical History: COPD, Myocardial Infarction ([place]), Vascular Disorder Additional Family Medical History / Comment(s): Father at age 64yrs. General Exam - General Exam Comments Initial Comments: General: Appears in no acute distress. HEAD: Normal with no signs of head trauma. EYES: PERRLA, EOMI, conjunctiva normal, no discharge. ENT: Hearing grossly intact, normal oropharynx. RESPIRATORY: Bilateral expiratory wheezing, exertional hypoxia to 89 and 90%. 92-95% on room air at rest. C/V: Regular rate and rhythm. S1 and S2 auscultated, no edema, peripheral pulses 2+ and intact throughout ABD: Abd is soft, nontender, nondistended EXT: Normal range of motion, no obvious deformity SKIN: No rashes or lesions observed on exposed skin. NEURO: Alert and oriented 4. Limitations: no limitations Course Vital Signs 04/27/23 04/28/23 04/28/23 23:02 02:30 03:10 Temperature 98.2 F Pulse Rate 88 76 68 Respiratory 20 18 Rate Blood Pressure 129/85 123/68 O2 Sat by Pulse 95 96 Oximetry 04/28/23 03:20 Temperature Pulse Rate 68 Respiratory Rate Blood Pressure O2 Sat by Pulse Oximetry Medical Decision Making - Medical Decision Making Was pt. sent in by a medical professional or institution (, PA, ENVIRONMENTAL TECH, urgent care, hospital, or assisted...) When possible be specific @ -No Did you speak to anyone other than the patient for history (EMS, parent, family, police, friend...)? What history was obtained from this source @ -No Did you review nursing and triage notes (agree or disagree)? Why? @ -I reviewed and agree with nursing and triage notes Were old charts reviewed (outside hosp., previous admission, EMS record, old EKG, old radiological studies, urgent care reports/EKG's, assisted records)? Report findings @ -Old charts reviewed Differential Diagnosis (chest pain, altered mental status, abdominal pain women, abdominal pain men, vaginal bleeding, weakness, fever, dyspnea, syncope, headache, dizziness, GI bleed, back pain, seizure, CVA, palpatations, mental health, musculoskeletal)? @ -Differential Dyspnea: Coronary syndrome, arrhythmia, tamponade, asthma, COPD, pulmonary embolism, pneumonia, pneumothorax, pulmonary effusion, anaphylaxis, diabetic ketoacidosis, flailed chest, pulmonary contusion, diaphragmatic rupture, anemia, neuromuscular, this is not meant to be an all-inclusive list. EKG interpreted by me (3pts min.). @ -As above X-rays interpreted by me (1pt min.). @ -Chest X-ray as no obvious acute cardio pulmonary process. CT interpreted by me (1pt min.). @ -None done U/S interpreted by me (1pt. min.). @ -None done What testing was considered but not performed or refused? (CT, X-rays, U/S, labs)? Why? @ -None What meds were considered but not given or refused? Why? @ -None Did you discuss the management of the patient with other professionals (professionals i.e. , PA, ENVIRONMENTAL TECH, lab, RT, psych nurse, social sciences lecturer, first aid trainer, teacher, nuclear security officer, case management coordinator)? Give summary @ - Patient admitted to [facility] and I spoke with ULYSSES Mascorro who accepted the patient. Was smoking cessation discussed for >3mins.? @ -No Was critical care preformed (if so, how long)? @ -No Were there social determinants of health that impacted care today? How? (Homelessness, low income, unemployed, alcoholism, drug addiction, transportation, low edu. Level, literacy, decrease access to med. care, [facility], rehab)? @ -No Was there de-escalation of care discussed even if they declined (Discuss DNR or withdrawal of care, Hospice)? DNR status @ -No What co-morbidities impacted this encounter? (DM, HTN, Smoking, COPD, CAD, Cancer, CVA, ARF, Chemo, Hep., AIDS, mental health diagnosis, sleep apnea, morbid obesity)? @ -None Was patient admitted / discharged? Hospital course, mention meds given and route, prescriptions, significant lab abnormalities, going to OR and other [facility] nent info. @ -Based on the patient's presentation and physical exam, I am concerned for COPD and possible upper respiratory infection. Work up was started in triage. I evaluated the patient when she was placed in a room. Vital signs are within acceptable limits at rest however imagery pulse ox is 89-90% on room air. Patient's laboratory studies are remarkable for a leukocytosis of 21.5. Patient has been on steroids but I do believe this is somewhat elevated despite this. Remainder the patient's labs within acceptable limits including an undetectable troponin negative vital signs. Chest x-ray shows no signs of acute cardiopulmonary process. EKG within acceptable limits. Patient was administered IV steroids as well as a breathing treatment. Patient remains relatively wheezy as well as 89 and 90% on ambulatory pulse ox. We will admit the patient for the leukocytosis as well as the COPD exacerbation. She did recently receive IV antibiotics and I will place the patient on Levaquin at this time addition to continuing with twice a day Solu-Medrol and 2 for DuoNeb. Patient in agreement this plan. Pulmonology consulted. Patient admitted to [facility] and I spoke with ULYSSES Mascorro who accepted the patient. Blood cultures were obtained for the leukocytosis. Undiagnosed new problem with uncertain prognosis? @ -No Drug Therapy requiring intensive monitoring for toxicity (Heparin, Nitro, Insulin, Cardizem)? @ -No Were any procedures done? @ -No Diagnosis/symptom? @ -COPD exacerbation, tracheobronchitis, leukocytosis Acute, or Chronic, or Acute on Chronic? @ -Acute Uncomplicated (without systemic symptoms) or Complicated (systemic symptoms)? @ -Complicated Side effects of treatment? @ -No Exacerbation, Progression, or Severe Exacerbation? @ -Exacerbation Poses a threat to life or bodily function? How? (Chest pain, [place], [place], pneumonia, PE, COPD, DKA, ARF, appy, cholecystitis, CVA, Diverticulitis, Homicidal, Suicidal, threat to staff... and all critical care pts) @ -Yes - Lab Data Result diagrams: 04/27/23 23:40 04/27/23 23:40 Lab Results 04/27/23 04/27/23 04/27/23 Range/Units 23:40 23:40 23:40 WBC 21.5 H (3.8-10.6) k/uL RBC 4.78 (3.80-5.40) m/uL Hgb 14.8 (11.4-16.0) gm/dL Hct 45.1 (34.0-46.0) % MCV 94.2 (80.0-100.0) fL MCH 31.0 (25.0-35.0) pg MCHC 32.9 (31.0-37.0) g/dL RDW 13.3 (11.5-15.5) % Plt Count 284 (150-450) k/uL MPV 8.0 Neutrophils % 86 % Lymphocytes % 7 % Monocytes % 5 % Eosinophils % 0 % Basophils % 0 % Neutrophils # 18.4 H (1.3-7.7) k/uL Lymphocytes # 1.4 (1.0-4.8) k/uL Monocytes # 1.0 (0-1.0) k/uL Eosinophils # 0.1 (0-0.7) k/uL Basophils # 0.1 (0-0.2) k/uL PT 10.1 (10.0-12.5) sec INR 0.9 (<1.2) APTT 21.0 L (22.0-30.0) sec Sodium 137 (137-145) mmol/L Potassium 4.3 (3.5-5.1) mmol/L Chloride 104 (98-107) mmol/L Carbon Dioxide 23 (22-30) mmol/L Anion Gap 10 mmol/L BUN 28 H (7-17) mg/dL Creatinine 0.78 (0.52-1.04) mg/dL Est GFR (CKD-EPI)AfAm >90 (>60 ml/min/1.73 sqM) Est GFR (CKD-EPI)NonAf 87 (>60 ml/min/1.73 sqM) Glucose 112 H (74-99) mg/dL Plasma Lactic Acid Sesar (0.7-2.0) mmol/L Calcium 9.0 (8.4-10.2) mg/dL Total Bilirubin 0.7 (0.2-1.3) mg/dL AST 20 (14-36) U/L ALT 36 H (4-34) U/L Alkaline Phosphatase 110 (38-126) U/L Troponin I (0.000-0.034) ng/mL Total Protein 6.4 (6.3-8.2) g/dL Albumin 4.0 (3.5-5.0) g/dL Influenza Type A (PCR) (Not Detectd) Influenza Type B (PCR) (Not Detectd) RSV (PCR) (Not Detectd) SARS-CoV-2 (PCR) (Not Detectd) 04/27/23 04/27/23 04/27/23 Range/Units 23:40 23:40 23:40 WBC (3.8-10.6) k/uL RBC (3.80-5.40) m/uL Hgb (11.4-16.0) gm/dL Hct (34.0-46.0) % MCV (80.0-100.0) fL MCH (25.0-35.0) pg MCHC (31.0-37.0) g/dL RDW (11.5-15.5) % Plt Count (150-450) k/uL MPV Neutrophils % % Lymphocytes % % Monocytes % % Eosinophils % % Basophils % % Neutrophils # (1.3-7.7) k/uL Lymphocytes # (1.0-4.8) k/uL Monocytes # (0-1.0) k/uL Eosinophils # (0-0.7) k/uL Basophils # (0-0.2) k/uL PT (10.0-12.5) sec INR (<1.2) APTT (22.0-30.0) sec Sodium (137-145) mmol/L Potassium (3.5-5.1) mmol/L Chloride (98-107) mmol/L Carbon Dioxide (22-30) mmol/L Anion Gap mmol/L BUN (7-17) mg/dL Creatinine (0.52-1.04) mg/dL Est GFR (CKD-EPI)AfAm (>60 ml/min/1.73 sqM) Est GFR (CKD-EPI)NonAf (>60 ml/min/1.73 sqM) Glucose (74-99) mg/dL Plasma Lactic Acid Sesar 1.5 (0.7-2.0) mmol/L Calcium (8.4-10.2) mg/dL Total Bilirubin (0.2-1.3) mg/dL AST (14-36) U/L ALT (4-34) U/L Alkaline Phosphatase (38-126) U/L Troponin I <0.012 (0.000-0.034) ng/mL Total Protein (6.3-8.2) g/dL Albumin (3.5-5.0) g/dL Influenza Type A (PCR) Not Detected (Not Detectd) Influenza Type B (PCR) Not Detected (Not Detectd) RSV (PCR) Not Detected (Not Detectd) SARS-CoV-2 (PCR) Not Detected (Not Detectd) - EKG Data -: EKG Interpreted by Me EKG Comments: 12-lead Electrocardiogram Interpretation Note EKG was reviewed and interpreted by myself. 12-lead ECG performed at 2332 is interpreted by me as revealing normal sinus rhythm at a rate of 79 beats per minute. Left axis deviation. IN interval is 139 ms, QRS duration is 105 ms, QTc is 392 ms.. There were no ST or T wave abnormalities to suggest myocardial ischemia or injury. R wave progression across the precordium was satisfactory. By my interpretation this EKG is non-diagnostic for acute ischemia. Disposition Clinical Impression: COPD (chronic obstructive pulmonary disease), Leukocytosis, Tracheobronchitis Disposition: ADMITTED IP TO THIS HOSP Condition: Stable Referrals: Edilberto Sabillon MD [Primary Care Provider] - 1-2 days Time of Disposition: 03:25
[2023-04-28 03:48] VITALS: RESP 18
[2023-04-28] MEDS: IPRATROPIUM-ALBUTEROL 3 ML NEB INHALATION SCH ×3 (04:25→11:36)
[2023-04-28] MEDS ORDERED: SYMBICORT 160-4.5 MCG INHALER INHALATION PRN (05:25)
[2023-04-28] MEDS ORDERED: HEPARIN SODIUM,PORCINE 5,000 UNIT/ML 1 ML VIAL SQ SCH (08:00)
[2023-04-28] MEDS ORDERED: BUDESONIDE 1 MG/2 ML NEBU INHALATION SCH (08:00)
[2023-04-28] MEDS ORDERED: busPIRone HCl 5 MG TAB PO SCH (09:00)
[2023-04-28] MEDS ORDERED: buPROPion XL 150 MG TAB.ER.24H PO SCH (09:00)
[2023-04-28] MEDS ORDERED: FAMOTIDINE 20 MG TAB PO SCH (09:00)
--- NOTE | 2023-04-28 11:40 | P.HPIM ---
History of Present Illness 53-year-old pleasant female came in with compensative for worsening shortness of breath patient was recently discharged from hospital after she was treated for COPD exacerbation patient is clinically doing well today not requiring oxygen at the patient does have slight wheeze on exam. Chest x-ray didn't show any pneumonia patient is comparing of cough without any significant sputum production patient was started on levofloxacin for bronchitis. Patient was evaluated by pulmonology. Patient denied any fever chills patient does have leukocytosis which is secondary to systemic steroids she is using at home. There is no evidence of any other infection at this time. Patient does have some oral thrush. Will ablate the patient without oxygen if she is saturating well without option patient will be discharged today. REVIEW OF SYSTEMS: CONSTITUTIONAL: No fever, no malaise, no fatigue. HEENT: No recent visual problems or hearing problems. Denied any sore throat. CARDIOVASCULAR: No chest pain, orthopnea, PND, no palpitations, no syncope. PULMONARY: no hemoptysis. GASTROINTESTINAL: No diarrhea, no nausea, no vomiting, no abdominal pain. NEUROLOGICAL: No headaches, no weakness, no numbness. HEMATOLOGICAL: Denies any bleeding or petechiae. GENITOURINARY: Denies any burning micturition, frequency, or urgency. MUSCULOSKELETAL/RHEUMATOLOGICAL: Denies any joint pain, swelling, or any muscle pain. ENDOCRINE: Denies any polyuria or polydipsia. The rest of the 14-point review of systems is negative. PHYSICAL EXAMINATION: GENERAL: The patient is alert and oriented x3, not in any acute distress. Well developed, well nourished. HEENT: Pupils are round and equally reacting to light. EOMI. No scleral icterus. No conjunctival pallor. Normocephalic, atraumatic. No pharyngeal erythema. No thyromegaly. Oral thrush nothing much CARDIOVASCULAR: S1 and S2 present. No murmurs, rubs, or gallops. PULMONARY: Chest is clear to auscultation, no crackles. Mild expiratory wheezing on exam ABDOMEN: Soft, nontender, nondistended, normoactive bowel sounds. No palpable organomegaly. MUSCULOSKELETAL: No joint swelling or deformity. EXTREMITIES: No cyanosis, clubbing, or pedal edema. NEUROLOGICAL: Gross neurological examination did not reveal any focal deficits. SKIN: No rashes. Assessment and plan -COPD with mild acute exacerbation which improved at this time. Patient will be discharged today on weaning dose of steroids and levofloxacin for 3 days for acute bronchitis -Oral thrush for which patient will be discharged on nystatin swish and swallow -Gases visual reflux disease: Pepcid until she is done with the systemic steroids steroids -Type 2 diabetes mellitus -Sleep apnea Patient recently quit smoking about a week ago Patient will be discharged today if she is is not desaturating upon ambulation Past Medical History Past Medical History: Asthma, COPD, Diabetes Mellitus, Eye Disorder, GERD/Reflux, Pneumonia, Sleep Apnea/CPAP/BIPAP Additional Past Medical History / Comment(s): NIDDM type II(diet controlled following wt. loss), glaucoma bilaterally, tachycardia, AKIRA with CPAP not used the machine since she lost 80 lbs post gastric sleeve, Degenerative disc disease in her back and neck. HX COLITIS. History of rectal diverticulum. 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 History of Any Multi-Drug Resistant Organisms: None Reported Past Surgical History: Bariatric Surgery, Section, Tubal Ligation Additional Past Surgical History / Comment(s): cyst removal under right breast, x 2. gastric sleeve Sx 2016., Colonoscopy 2020. Past Anesthesia/Blood Transfusion Reactions: No Reported Reaction, Motion Sickness Past Psychological History: Anxiety, Depression, Panic Disorder Smoking Status: Current some day smoker Past Alcohol Use History: None Reported Past Drug Use History: None Reported - Past Family History Mother History Unknown: Yes Family Medical History: Cancer, COPD Additional Family Medical History / Comment(s): Breast cancer. She also has a paternal aunt with breast cancer. Father History Unknown: Yes Family Medical History: COPD, Myocardial Infarction ([place]), Vascular Disorder Additional Family Medical History / Comment(s): Father at age 64yrs. Medications and Allergies Home Medications Medication Instructions Recorded Confirmed Type Atorvastatin [Lipitor] 20 mg PO HS 04/18/20 04/28/23 History Ipratropium-Albuterol Nebulize 3 ml INHALATION RT-QID PRN 09/06/21 04/28/23 History [Duoneb 0.5 mg-3 mg/3 ml Soln] Montelukast [Singulair] 10 mg PO HS 09/06/21 04/28/23 History Budesonide-Formot 160-4.5 Mcg 2 puff INHALATION RT-BID PRN 02/08/22 04/28/23 History [Symbicort 160-4.5 Mcg Inhaler] buPROPion XL [Wellbutrin XL] 150 mg PO DAILY 03/16/22 04/28/23 History Famotidine [Pepcid] 20 mg PO BID #60 tab 03/18/22 04/28/23 Rx busPIRone HCl [Buspar] 5 mg PO BID #60 tab 03/18/22 04/28/23 Rx ALPRAZolam [Xanax] 0.25 mg PO HS 08/18/22 04/28/23 History Albuterol Sulfate [Ventolin HFA] 1 - 2 puff INHALATION RT-Q6H PRN 08/18/22 04/28/23 History Ipratropium/Albuter 20-100Mcg 1 puff INHALATION RT-QID PRN 08/18/22 04/28/23 History [Combivent Respimat 20-100Mcg Inhaler] Acetaminophen Tab [Tylenol] 650 mg PO Q4HR PRN tab 08/22/22 04/28/23 Rx Nicotine 21Mg/24Hr Patch [Habitrol] 1 patch TRANSDERM DAILY PRN 11/25/22 04/28/23 History Ipratropium-Albuterol Nebulize 3 ml INHALATION RT-QID each 11/26/22 04/28/23 Rx [Duoneb 0.5 mg-3 mg/3 ml Soln] Budesonide [Pulmicort] 1 mg INHALATION RT-BID 04/17/23 04/28/23 History Formoterol Fumarate [Perforomist] 20 mcg INHALATION RT-BID 04/17/23 04/28/23 History Levofloxacin [Levaquin] 750 mg PO DAILY #3 tab 04/28/23 Rx Nystatin [Nystatin Oral Susp] 5 ml PO TID #100 ml 04/28/23 Rx predniSONE 10 mg PO DAILY #30 tab 04/28/23 Rx Allergies Allergy/AdvReac Type Severity Reaction Status Date / Time cephalexin [From Keflex] Allergy Swelling Verified 04/28/23 07:13 of lips Iodinated Contrast Media Allergy Rash/Hives Verified 04/28/23 07:13 Penicillins Allergy Swelling Verified 04/28/23 07:13 lips pollen extracts Allergy Dyspnea Verified 04/28/23 07:13 shellfish derived [Shellfish] Allergy Anaphylaxis Verified 04/28/23 07:13 Physical Exam Vitals: Vital Signs Temp Pulse Resp BP Pulse Ox 04/28/23 11:36 84 04/28/23 08:41 85 18 160/90 92 L 04/28/23 07:56 88 04/28/23 07:44 85 04/28/23 04:37 75 04/28/23 04:27 67 04/28/23 04:00 78 18 115/72 95 04/28/23 03:20 68 04/28/23 03:10 68 04/28/23 02:30 76 18 123/68 96 04/27/23 23:02 98.2 F 88 20 129/85 95 Intake and Output 04/27/23 04/28/23 04/28/23 22:59 06:59 14:59 Other: Weight 68.039 kg Results CBC & Chem 7: 04/27/23 23:40 04/27/23 23:40 Labs: Abnormal Lab Results - Last 24 Hours (Table) 04/27/23 04/27/23 04/27/23 Range/Units 23:40 23:40 23:40 WBC 21.5 H (3.8-10.6) k/uL Neutrophils # 18.4 H (1.3-7.7) k/uL APTT 21.0 L (22.0-30.0) sec BUN 28 H (7-17) mg/dL Glucose 112 H (74-99) mg/dL ALT 36 H (4-34) U/L
--- NOTE | 2023-04-28 11:41 | P.DS ---
Providers Date of admission: 04/28/23 03:39 Attending physician: Shandra Monge Consults: 04/28/23 03:53 Consult Physician Routine Consulting Provider: Barrie Olmstead Consult Reason/Comments: copd, tracheobronchitis Do you want consulting provider notified?: Yes Primary care physician: Edilberto Sabillon Hospital Course: 53-year-old pleasant female came in with compensative for worsening shortness of breath patient was recently discharged from hospital after she was treated for COPD exacerbation patient is clinically doing well today not requiring oxygen at the patient does have slight wheeze on exam. Chest x-ray didn't show any pneumonia patient is comparing of cough without any significant sputum production patient was started on levofloxacin for bronchitis. Patient was evaluated by pulmonology. Patient denied any fever chills patient does have leukocytosis which is secondary to systemic steroids she is using at home. There is no evidence of any other infection at this time. Patient does have some oral thrush. Will ablate the patient without oxygen if she is saturating well without option patient will be discharged today. REVIEW OF SYSTEMS: CONSTITUTIONAL: No fever, no malaise, no fatigue. HEENT: No recent visual problems or hearing problems. Denied any sore throat. CARDIOVASCULAR: No chest pain, orthopnea, PND, no palpitations, no syncope. PULMONARY: no hemoptysis. GASTROINTESTINAL: No diarrhea, no nausea, no vomiting, no abdominal pain. NEUROLOGICAL: No headaches, no weakness, no numbness. HEMATOLOGICAL: Denies any bleeding or petechiae. GENITOURINARY: Denies any burning micturition, frequency, or urgency. MUSCULOSKELETAL/RHEUMATOLOGICAL: Denies any joint pain, swelling, or any muscle pain. ENDOCRINE: Denies any polyuria or polydipsia. The rest of the 14-point review of systems is negative. PHYSICAL EXAMINATION: GENERAL: The patient is alert and oriented x3, not in any acute distress. Well developed, well nourished. HEENT: Pupils are round and equally reacting to light. EOMI. No scleral icterus. No conjunctival pallor. Normocephalic, atraumatic. No pharyngeal erythema. No thyromegaly. Oral thrush nothing much CARDIOVASCULAR: S1 and S2 present. No murmurs, rubs, or gallops. PULMONARY: Chest is clear to auscultation, no crackles. Mild expiratory wheezing on exam ABDOMEN: Soft, nontender, nondistended, normoactive bowel sounds. No palpable organomegaly. MUSCULOSKELETAL: No joint swelling or deformity. EXTREMITIES: No cyanosis, clubbing, or pedal edema. NEUROLOGICAL: Gross neurological examination did not reveal any focal deficits. SKIN: No rashes. Assessment and plan -COPD with mild acute exacerbation which improved at this time. Patient will be discharged today on weaning dose of steroids and levofloxacin for 3 days for a cute bronchitis -Oral thrush for which patient will be discharged on nystatin swish and swallow -Gases visual reflux disease: Pepcid until she is done with the systemic steroids steroids -Type 2 diabetes mellitus -Sleep apnea Patient recently quit smoking about a week ago Patient will be discharged today if she is is not desaturating upon ambulation Patient Condition at Discharge: Stable Plan - Discharge Summary New Discharge Prescriptions: New Nystatin [Nystatin Oral Susp] 5 ml PO TID #100 ml Levofloxacin [Levaquin] 750 mg PO DAILY #3 tab predniSONE 10 mg PO DAILY #30 tab Continue Atorvastatin [Lipitor] 20 mg PO HS Montelukast [Singulair] 10 mg PO HS Budesonide-Formot 160-4.5 Mcg [Symbicort 160-4.5 Mcg Inhaler] 2 puff INHALATION RT-BID PRN PRN Reason: when out of house. busPIRone HCl [Buspar] 5 mg PO BID #60 tab Albuterol Sulfate [Ventolin HFA] 1 - 2 puff INHALATION RT-Q6H PRN PRN Reason: Shortness Of Breath Acetaminophen Tab [Tylenol] 650 mg PO Q4HR PRN tab PRN Reason: Mild Pain Or Fever > 100.5 Nicotine 21Mg/24Hr Patch [Habitrol] 1 patch TRANSDERM DAILY PRN PRN Reason: Nicotine Cravings Ipratropium-Albuterol Nebulize [Duoneb 0.5 mg-3 mg/3 ml Soln] 3 ml INHALATION RT-QID PRN PRN Reason: Shortness Of Breath buPROPion XL [Wellbutrin XL] 150 mg PO DAILY Famotidine [Pepcid] 20 mg PO BID #60 tab ALPRAZolam [Xanax] 0.25 mg PO HS Ipratropium/Albuter 20-100Mcg [Combivent Respimat 20-100Mcg Inhaler] 1 puff INHALATION RT-QID PRN PRN Reason: when out of house Ipratropium-Albuterol Nebulize [Duoneb 0.5 mg-3 mg/3 ml Soln] 3 ml INHALATION RT-QID each Formoterol Fumarate [Perforomist] 20 mcg INHALATION RT-BID Budesonide [Pulmicort] 1 mg INHALATION RT-BID Discharge Medication List Atorvastatin [Lipitor] 20 mg PO HS 04/18/20 [History] Ipratropium-Albuterol Nebulize [Duoneb 0.5 mg-3 mg/3 ml Soln] 3 ml INHALATION RT-QID PRN 09/06/21 [History] Montelukast [Singulair] 10 mg PO HS 09/06/21 [History] Budesonide-Formot 160-4.5 Mcg [Symbicort 160-4.5 Mcg Inhaler] 2 puff INHALATION RT-BID PRN 02/08/22 [History] buPROPion XL [Wellbutrin XL] 150 mg PO DAILY 03/16/22 [History] Famotidine [Pepcid] 20 mg PO BID #60 tab 03/18/22 [Rx] busPIRone HCl [Buspar] 5 mg PO BID #60 tab 03/18/22 [Rx] ALPRAZolam [Xanax] 0.25 mg PO HS 08/18/22 [History] Albuterol Sulfate [Ventolin HFA] 1 - 2 puff INHALATION RT-Q6H PRN 08/18/22 [History] Ipratropium/Albuter 20-100Mcg [Combivent Respimat 20-100Mcg Inhaler] 1 puff INHALATION RT-QID PRN 08/18/22 [History] Acetaminophen Tab [Tylenol] 650 mg PO Q4HR PRN tab 08/22/22 [Rx] Nicotine 21Mg/24Hr Patch [Habitrol] 1 patch TRANSDERM DAILY PRN 11/25/22 [H istory] Ipratropium-Albuterol Nebulize [Duoneb 0.5 mg-3 mg/3 ml Soln] 3 ml INHALATION RT-QID each 11/26/22 [Rx] Budesonide [Pulmicort] 1 mg INHALATION RT-BID 04/17/23 [History] Formoterol Fumarate [Perforomist] 20 mcg INHALATION RT-BID 04/17/23 [History] Levofloxacin [Levaquin] 750 mg PO DAILY #3 tab 04/28/23 [Rx] Nystatin [Nystatin Oral Susp] 5 ml PO TID #100 ml 04/28/23 [Rx] predniSONE 10 mg PO DAILY #30 tab 04/28/23 [Rx] Follow up Appointment(s)/Referral(s): Edilberto Sabillon MD [Primary Care Provider] - 3 Days Barrie Olmstead DO [Doctor of Osteopathic Medicine] - 1 Week Patient Instructions/Handouts: COPD (Chronic Obstructive Pulmonary Disease) (DC), Chronic Lung Disease and Infection Prevention (ED) Discharge Disposition: HOME SELF-CARE
--- NOTE | 2023-04-28 11:58 | P.CNPUL ---
History of Present Illness Consult date: 04/28/23 Requesting physician: Rhona Arango Reason for consult: COPD Chief complaint: Shortness of breath, cough, congestion History of present illness: This is a pleasant 53-year-old female patient with a known history of hyperlipidemia, diabetes mellitus, gastroesophageal reflux disease, previous obesity status post gastric sleeve and was able to be off CPAP for obstructive sleep apnea, chronic and ongoing tobacco dependence, chronic obstructive pulmonary disease with an FEV1 value 53% of predicted. 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 She follows with Dr. Olmstead in our office. She was just discharged from here on 04/21/2023 following acute exacerbation of COPD. She represented again to the emergency room last evening with recurrent shortness of breath, cough and congestion. She states once her prednisone is lower than 40 she starts have symptoms again. Chest x-ray showed no acute findings. White count 21.5. Humulin 14.8. Platelets 284. Sodium 137. Potassium 4.3. Bicarb 23. BUN 28. Creatinine 0.78. Glucose 112. Viral screen negative. She is seen today in consultation in the emergency department. She is sitting up in a stretcher having breakfast. Awake and alert in no acute distress. She is maintaining O2 saturations in the 90s on room air. She's afebrile. Hemodynamically stable. She's been initiated on DuoNeb inhalations, Pulmicort cord and Perforomist inhalations, IV Solu-Medrol. Empiric antibody the form of Levaquin. Procalcitonin level pending. Review of Systems REVIEW OF SYSTEMS: CONSTITUTIONAL: Denies any recent significant weight loss or weight gain. EYES: Denies change in vision. EARS, NOSE, MOUTH, THROAT: Denies headaches, denies sore throat. CARDIOVASCULAR: Denies chest pain, palpitations or syncopal episodes. RESPIRATORY: Positive for shortness of breath, cough, congestion no hemoptysis. GASTROINTESTINAL: Denies change in appetite, denies abdominal pain GENITOURINARY: Denies hematuria, denies infections. MUSKULOSKELETAL: Denies pain, denies swelling. INTEGUMENTARY: Denies rash, denies eczema. NEUROLOGICAL: Denies recent memory loss, no recent seizure activity. PSYCHIATRIC: Denies anxiety, denies depression. HEMATOLOGIC/LYMPHATIC: Denies anemia, denies enlarged lymph nodes. Past Medical History Past Medical History: Asthma, COPD, Diabetes Mellitus, Eye Disorder, GERD/Reflux, Pneumonia, Sleep Apnea/CPAP/BIPAP Additional Past Medical History / Comment(s): NIDDM type II(diet controlled following wt. loss), glaucoma bilaterally, tachycardia, AKIRA with CPAP not used the machine since she lost 80 lbs post gastric sleeve, Degenerative disc disease in her back and neck. HX COLITIS. History of rectal diverticulum. 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 History of Any Multi-Drug Resistant Organisms: None Reported Past Surgical History: Bariatric Surgery, Section, Tubal Ligation Additional Past Surgical History / Comment(s): cyst removal under right breast, x 2. gastric sleeve Sx 2016., Colonoscopy 2020. Past Anesthesia/Blood Transfusion Reactions: No Reported Reaction, Motion Sickness Past Psychological History: Anxiety, Depression, Panic Disorder Smoking Status: Current some day smoker Past Alcohol Use History: None Reported Past Drug Use History: None Reported - Past Family History Mother History Unknown: Yes Family Medical History: Cancer, COPD Additional Family Medical History / Comment(s): Breast cancer. She also has a paternal aunt with breast cancer. Father History Unknown: Yes Family Medical History: COPD, Myocardial Infarction ([place]), Vascular Disorder Additional Family Medical History / Comment(s): Father at age 64yrs. Medications and Allergies Home Medications Medication Instructions Recorded Confirmed Type Atorvastatin [Lipitor] 20 mg PO HS 04/18/20 04/28/23 History Ipratropium-Albuterol Nebulize 3 ml INHALATION RT-QID PRN 09/06/21 04/28/23 History [Duoneb 0.5 mg-3 mg/3 ml Soln] Montelukast [Singulair] 10 mg PO HS 09/06/21 04/28/23 History Budesonide-Formot 160-4.5 Mcg 2 puff INHALATION RT-BID PRN 02/08/22 04/28/23 History [Symbicort 160-4.5 Mcg Inhaler] buPROPion XL [Wellbutrin XL] 150 mg PO DAILY 03/16/22 04/28/23 History Famotidine [Pepcid] 20 mg PO BID #60 tab 03/18/22 04/28/23 Rx busPIRone HCl [Buspar] 5 mg PO BID #60 tab 03/18/22 04/28/23 Rx ALPRAZolam [Xanax] 0.25 mg PO HS 08/18/22 04/28/23 History Albuterol Sulfate [Ventolin HFA] 1 - 2 puff INHALATION RT-Q6H PRN 08/18/22 04/28/23 History Ipratropium/Albuter 20-100Mcg 1 puff INHALATION RT-QID PRN 08/18/22 04/28/23 History [Combivent Respimat 20-100Mcg Inhaler] Acetaminophen Tab [Tylenol] 650 mg PO Q4HR PRN tab 08/22/22 04/28/23 Rx Nicotine 21Mg/24Hr Patch [Habitrol] 1 patch TRANSDERM DAILY PRN 11/25/22 04/28/23 History Ipratropium-Albuterol Nebulize 3 ml INHALATION RT-QID each 11/26/22 04/28/23 Rx [Duoneb 0.5 mg-3 mg/3 ml Soln] Budesonide [Pulmicort] 1 mg INHALATION RT-BID 04/17/23 04/28/23 History Formoterol Fumarate [Perforomist] 20 mcg INHALATION RT-BID 04/17/23 04/28/23 History Levofloxacin [Levaquin] 750 mg PO DAILY #3 tab 04/28/23 Rx Nystatin [Nystatin Oral Susp] 5 ml PO TID #100 ml 04/28/23 Rx predniSONE 10 mg PO DAILY #30 tab 04/28/23 Rx Allergies Allergy/AdvReac Type Severity Reaction Status Date / Time cephalexin [From Keflex] Allergy Swelling Verified 04/28/23 07:13 of lips Iodinated Contrast Media Allergy Rash/Hives Verified 04/28/23 07:13 Penicillins Allergy Swelling Verified 04/28/23 07:13 lips pollen extracts Allergy Dyspnea Verified 04/28/23 07:13 shellfish derived [Shellfish] Allergy Anaphylaxis Verified 04/28/23 07:13 Physical Exam Vitals: Vital Signs Temp Pulse Resp BP Pulse Ox 04/28/23 11:36 84 04/28/23 08:41 85 18 160/90 92 L 04/28/23 07:56 88 04/28/23 07:44 85 04/28/23 04:37 75 04/28/23 04:27 67 04/28/23 04:00 78 18 115/72 95 04/28/23 03:20 68 04/28/23 03:10 68 04/28/23 02:30 76 18 123/68 96 04/27/23 23:02 98.2 F 88 20 129/85 95 Intake and Output 04/27/23 04/28/23 04/28/23 22:59 06:59 14:59 Other: Weight 68.039 kg GENERAL EXAM: Alert, pleasant 53-year-old female, on room air, comfortable in no apparent distress. HEAD: Normocephalic. EYES: Normal reaction of pupils, equal size. NOSE: Clear with pink turbinates. THROAT: No erythema or exudates. NECK: No masses, no JVD. CHEST: No chest wall deformity. LUNGS: Equal air entry with faint end expiratory wheeze, diminished. CVS: S1 and S2 normal with no audible murmur, regular rhythm. ABDOMEN: No hepatosplenomegaly, normal bowel sounds, no guarding or rigidity. SPINE: No scoliosis or deformity SKIN: No rashes CENTRAL NERVOUS SYSTEM: No focal deficits, tone is normal in all 4 extremities. EXTREMITIES: There is no peripheral edema. No clubbing, no cyanosis. Peripheral pulses are intact. Results - Laboratory Findings CBC and BMP: 04/27/23 23:40 04/27/23 23:40 PT/INR, D-dimer PT 10.1 sec (10.0-12.5) 04/27/23 23:40 INR 0.9 (<1.2) 04/27/23 23:40 Abnormal lab findings: Abnormal Labs 04/27/23 04/27/23 04/27/23 23:40 23:40 23:40 WBC 21.5 H Neutrophils # 18.4 H APTT 21.0 L BUN 28 H Glucose 112 H ALT 36 H - Diagnostic Findings Chest x-ray: image reviewed Assessment and Plan Assessment: Acute hypoxemic respiratory failure secondary to an acute exacerbation of chronic obstructive pulmonary disease. Chest x-ray shows no acute pulmonary process. Viral screen negative. Pro-calcitonin pending. Chronic obstructive pulmonary disease with an FEV1 value 53% of predicted. 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 COVID 19 in Feb 2023, recovered Hyperlipidemia Gastroesophageal reflux disease Anxiety/depression History of obstructive sleep apnea, not utilizing CPAP, had since lost 80 pounds History of obesity, status post gastric sleeve placement Plan: The patient was seen and evaluated Chest x-ray, labs and medications reviewed Again educated regarding the importance of complete smoking cessation Continue bronchodilators, steroids Check a pro-calcitonin Follow up closely in our office post discharge to avoid readmissions I have personally seen and examined the patient, performed the documentation and the assessment and plan as written. Number of minutes spent on the visit: 20.
[2023-04-28] MEDS ORDERED: methylPREDNISolone SOD SUCCI 125 MG/2 ML VIAL IV SCH (12:00)
[2023-04-28 12:07] VITALS: BP 164/88; PULSE 82
[2023-04-28] MEDS ORDERED: methylPREDNISolone SOD SUCCI 40 MG/ML 1 ML VIAL IV SCH (14:00)
[2023-04-28] MEDS ORDERED: FORMOTEROL FUMARATE 20 MCG/2 ML NEBU INHALATION SCH (20:00)
[2023-04-28] MEDS ORDERED: ATORVASTATIN 20 MG TAB PO SCH (21:00)
[2023-04-28] MEDS ORDERED: MONTELUKAST 10 MG TAB PO SCH (21:00)
[2023-04-29] MEDS ORDERED: LEVOFLOXACIN 750 MG TAB PO SCH (09:00)
== END 2023-04-28 12:31 | disposition home or self-care (01) ==
LOC: EC 22:33 → 6NMEDSUR 04-28 03:39
PROVIDERS: ADMIT Hospitalist; ATTEND Hospitalist
DX: J44.1 Chronic obstructive pulmonary disease with (acute) exacerbation (principal); J44.0 Chronic obstructive pulmonary disease with (acute) lower respiratory infection; J20.9 Acute bronchitis, unspecified; B37.0 Candidal stomatitis; D72.829 Elevated white blood cell count, unspecified; T38.0X5A Adverse effect of glucocorticoids and synthetic analogues, initial encounter; G47.33 Obstructive sleep apnea (adult) (pediatric); E11.9 Type 2 diabetes mellitus without complications; K21.9 Gastro-esophageal reflux disease without esophagitis; K57.30 Diverticulosis of large intestine without perforation or abscess without bleeding; H40.9 Unspecified glaucoma; F32.A Depression, unspecified; F41.0 Panic disorder [episodic paroxysmal anxiety]; F41.9 Anxiety disorder, unspecified; F17.200 Nicotine dependence, unspecified, uncomplicated; Z11.52 Encounter for screening for COVID-19; Z79.52 Long term (current) use of systemic steroids; Z79.51 Long term (current) use of inhaled steroids; Z79.899 Other long term (current) drug therapy; Z88.1 Allergy status to other antibiotic agents; Z91.041 Radiographic dye allergy status; Z88.0 Allergy status to penicillin; Z91.013 Allergy to seafood; Z91.048 Other nonmedicinal substance allergy status; Z87.01 Personal history of pneumonia (recurrent); Z98.84 Bariatric surgery status; Z98.891 History of uterine scar from previous surgery; Z98.51 Tubal ligation status; Z98.890 Other specified postprocedural states; Z80.3 Family history of malignant neoplasm of breast; Z82.5 Family history of asthma and other chronic lower respiratory diseases; Z82.49 Family history of ischemic heart disease and other diseases of the circulatory system
CPT/HCPCS: 96365; 96366; 96375; 99285; 36415; 94640 ×2; 93005; 80053; 83605; 84484; 85025; 85610; 85730; 87040; 84145; 87636; 71046; G0378; J2920; J1956

== ENCOUNTER → 2023-05-06 | Outpatient (CLI) | payer OTHER ==
[2023-05-06 15:43] LABS: Basophils # (A) 0.05 X 10*3/uL (0.00-0.10); Basophils % (A) 0.4 %; Eosinophils # (A) 0.02 X 10*3/uL (0.04-0.35); Eosinophils % (A) 0.2 %; HCT 42.3 % (37.2-46.3); HGB 13.4 g/dL (12.0-15.0); Lymphocytes # (A) 1.16 X 10*3/uL (0.90-5.00); Lymphocytes % (A) 8.9 %; MCH 30.3 pg (27.0-32.0); MCHC 31.7 g/dL (32.0-37.0); MCV 95.7 FL (80.0-97.0); Mean Platelet Volume 9.7 FL (9.5-12.2); Monocytes # (A) 0.86 X 10*3/uL (0.20-1.00); Monocytes % (A) 6.6 %; NRBC Per 100 WBC 0 X 10*3/uL (0.00-0.01); Neutrophils # (A) 10.66 X 10*3/uL (1.80-7.70); Neutrophils % (A) 81.8 %; Platelet Count 245 X 10*3/uL (140-440); RBC 4.42 X 10*6/uL (4.10-5.20); RDW 14.2 % (11.5-14.5); WBC 13.02 X 10*3/uL (4.50-10.00)
[2023-05-06 16:09] LABS: ALT 31 U/L (8-44); AST 11 U/L (13-35); Albumin 3.8 g/dL (3.8-4.9); Albumin/Globulin Ratio 2.11 Ratio (1.60-3.17); Alkaline Phosphatase 104 U/L (41-126); BUN/Creat Ratio 19.17 Ratio (12.00-20.00); Blood Urea Nitrogen 11.5 mg/dL (9.0-27.0); Calcium 9.1 mg/dL (8.7-10.3); Chloride 107 mmol/L (96-109); Globulin 1.8 g/dL (1.6-3.3); Glucose 154 mg/dL (70-110); Potassium 4.3 mmol/L (3.5-5.5); Sodium 143 mmol/L (135-145); Total Bilirubin 0.5 mg/dL (0.3-1.2); Total Protein 5.6 g/dL (6.2-8.2)
== END | disposition home or self-care (01) ==
LOC: LABWHC1 10:40
PROVIDERS: ATTEND Family Medicine
DX: F41.9 Anxiety disorder, unspecified (principal)
CPT/HCPCS: 36415; 80053; 85025

== ENCOUNTER → 2023-05-13 | Outpatient (CLI) | payer OTHER ==
[2023-05-14 02:15] LABS: Basophils # (A) 0.07 X 10*3/uL (0.00-0.10); Basophils % (A) 0.6 %; Eosinophils % (A) 1.9 %; HCT 44.6 % (37.2-46.3); HGB 13.9 g/dL (12.0-15.0); Lymphocytes # (A) 2.23 X 10*3/uL (0.90-5.00); Lymphocytes % (A) 20.6 %; MCH 30.2 pg (27.0-32.0); MCHC 31.2 g/dL (32.0-37.0); Mean Platelet Volume 9.8 FL (9.5-12.2); Monocytes % (A) 6.5 %; NRBC Per 100 WBC 0 X 10*3/uL (0.00-0.01); Neutrophils # (A) 7.41 X 10*3/uL (1.80-7.70); Neutrophils % (A) 68.5 %; Platelet Count 235 X 10*3/uL (140-440); RDW 14.2 % (11.5-14.5); WBC 10.81 X 10*3/uL (4.50-10.00)
[2023-05-14 03:55] LABS: Chol/HDL Ratio 1.93 Ratio; LDL Cholesterol,Calculated 64.7 mg/dL (0.0-131.0); VLDL Calculation 15.48 mg/dL (5.00-40.00)
== END | disposition home or self-care (01) ==
LOC: LABWHC1 14:07
PROVIDERS: ATTEND Family Medicine
DX: Z00.00 Encounter for general adult medical examination without abnormal findings (principal)
CPT/HCPCS: 36415; 80061; 82306; 83036; 85025

== ENCOUNTER → 2023-06-08 | Outpatient (CLI) | payer OTHER ==
--- NOTE | 2023-06-08 12:38 | US ---
EXAMINATION TYPE: US venous doppler duplex LE RT DATE OF EXAM: 06/08/2023 12:24 PM COMPARISON: NONE CLINICAL INDICATION: Female, 53 years old with history of M79.604 PAIN IN RIGHT LEG; Right calf pain x last month. No redness or swelling. Patient states pain has gone away. SIDE PERFORMED: Right TECHNIQUE: The lower extremity deep venous system is examined utilizing real time linear array sonog lalitha with graded compression, doppler sonography and color-flow sonography. VESSELS IMAGED: Common Femoral Vein Deep Femoral Vein Greater Saphenous Vein * Femoral Vein Popliteal Vein Small Saphenous Vein * Proximal Calf Veins (* superficial vessels) Right Leg: Negative for DVT IMPRESSION: 1. Right lower extremity ultrasound negative for deep venous thrombosis
== END | disposition home or self-care (01) ==
LOC: RADUSWWP 11:56
PROVIDERS: ATTEND Family Medicine
DX: M79.604 Pain in right leg (principal)

== ENCOUNTER 2023-08-08 10:34 | Emergency (ER) | payer OTHER ==
[2023-08-08 10:44] VITALS: TEMP 98.4
[2023-08-08] MEDS: KETOROLAC 15 MG/ML 1 ML VIAL IVP STA (10:51)
[2023-08-08] MEDS: ORPHENADRINE 30 MG/ML 2 ML VIAL IVP STA (10:51)
--- NOTE | 2023-08-08 11:11 | ED ---
General Adult HPI - General Chief complaint: Back Pain/Injury Stated complaint: back pain Time Seen by Provider: 08/08/23 10:40 Source: patient, RN notes reviewed, old records reviewed Mode of arrival: ambulatory Limitations: no limitations - History of Present Illness Initial comments: This is a 53-year-old female who presents to the emergency department complaining of lower back pain from 1 side to the other lower back. 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 Patient denies any numbness or weakness. Patient denies any urinary incontinence or urinary retention. Patient denies any fall. Patient denies any blunt trauma to the area. Patient states twisting or bending exacerbate the pain. - Related Data Home Medications Medication Instructions Recorded Confirmed Atorvastatin [Lipitor] 20 mg PO HS 04/18/20 04/28/23 Ipratropium-Albuterol Nebulize 3 ml INHALATION RT-QID PRN 09/06/21 04/28/23 [Duoneb 0.5 mg-3 mg/3 ml Soln] Montelukast [Singulair] 10 mg PO HS 09/06/21 04/28/23 Budesonide-Formot 160-4.5 Mcg 2 puff INHALATION RT-BID PRN 02/08/22 04/28/23 [Symbicort 160-4.5 Mcg Inhaler] buPROPion XL [Wellbutrin XL] 150 mg PO DAILY 03/16/22 04/28/23 ALPRAZolam [Xanax] 0.25 mg PO HS 08/18/22 04/28/23 Albuterol Sulfate [Ventolin HFA] 1 - 2 puff INHALATION RT-Q6H PRN 08/18/22 04/28/23 Ipratropium/Albuter 20-100Mcg 1 puff INHALATION RT-QID PRN 08/18/22 04/28/23 [Combivent Respimat 20-100Mcg Inhaler] Nicotine 21Mg/24Hr Patch [Habitrol] 1 patch TRANSDERM DAILY PRN 11/25/22 04/28/23 Budesonide [Pulmicort] 1 mg INHALATION RT-BID 04/17/23 04/28/23 Formoterol Fumarate [Perforomist] 20 mcg INHALATION RT-BID 04/17/23 04/28/23 Previous Rx's Medication Instructions Recorded Famotidine [Pepcid] 20 mg PO BID #60 tab 03/18/22 busPIRone HCl [Buspar] 5 mg PO BID #60 tab 03/18/22 Acetaminophen Tab [Tylenol] 650 mg PO Q4HR PRN tab 08/22/22 Ipratropium-Albuterol Nebulize 3 ml INHALATION RT-QID each 11/26/22 [Duoneb 0.5 mg-3 mg/3 ml Soln] Levofloxacin [Levaquin] 750 mg PO DAILY #3 tab 04/28/23 Nystatin [Nystatin Oral Susp] 5 ml PO TID #100 ml 04/28/23 predniSONE 10 mg PO DAILY #30 tab 04/28/23 Cyclobenzaprine [Flexeril] 10 mg PO TID #20 tab 08/08/23 Ketorolac [Toradol] 10 mg PO Q6HR #15 tab 08/08/23 Allergies Allergy/AdvReac Type Severity Reaction Status Date / Time cephalexin [From Keflex] Allergy Swelling Verified 08/08/23 10:37 of lips Iodinated Contrast Media Allergy Rash/Hives Verified 08/08/23 10:37 Penicillins Allergy Swelling Verified 08/08/23 10:37 lips pollen extracts Allergy Dyspnea Verified 08/08/23 10:37 shellfish derived [Shellfish] Allergy Anaphylaxis Verified 08/08/23 10:37 Review of Systems ROS Statement: Those systems with pertinent positive or pertinent negative responses have been documented in the HPI. ROS Other: All systems not noted in ROS Statement are negative. Past Medical History Past Medical History: Asthma, COPD, Diabetes Mellitus, Eye Disorder, GERD/Reflux, Pneumonia, Sleep Apnea/CPAP/BIPAP Additional Past Medical History / Comment(s): NIDDM type II(diet controlled following wt. loss), glaucoma bilaterally, tachycardia, AKIRA with CPAP not used the machine since she lost 80 lbs post gastric sleeve, Degenerative disc disease in her back and neck. HX COLITIS. History of rectal diverticulum. 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 History of Any Multi-Drug Resistant Organisms: None Reported Past Surgical History: Bariatric Surgery, Section, Tubal Ligation Additional Past Surgical History / Comment(s): cyst removal under right breast, x 2. gastric sleeve Sx 2016., Colonoscopy 2020. Past Anesthesia/Blood Transfusion Reactions: No Reported Reaction, Motion Sickness Past Psychological History: Anxiety, Depression, Panic Disorder Smoking Status: Current every day smoker Past Alcohol Use History: None Reported Past Drug Use History: None Reported - Past Family History Mother History Unknown: Yes Family Medical History: Cancer, COPD Additional Family Medical History / Comment(s): Breast cancer. She also has a paternal aunt with breast cancer. Father History Unknown: Yes Family Medical History: COPD, Myocardial Infarction ([place]), Vascular Disorder Additional Family Medical History / Comment(s): Father at age 64yrs. General Exam - General Exam Comments Initial Comments: GENERAL: Patient is well-developed and well-nourished. Patient is nontoxic and well- hydrated and is in mild distress. ENT: Neck is soft and supple. No significant lymphadenopathy is noted. Oropharynx is clear. Moist mucous membranes. Neck has full range of motion without eliciting any pain. EYES: The sclera were anicteric and conjunctiva were pink and moist. Extraocular movements were intact and pupils were equal round and reactive to light. Eyelids were unremarkable. PULMONARY: Unlabored respirations. Good breath sounds bilaterally. No audible rales rhonchi or wheezing was noted. CARDIOVASCULAR: There is a regular rate and rhythm without any murmurs gallops or rubs. ABDOMEN: Soft and nontender with normal bowel sounds. SKIN: Skin is clear with no lesions or rashes and otherwise unremarkable. NEUROLOGIC: Patient is alert and oriented x3. Cranial nerves II through XII are grossly intact. Motor and sensory are also intact. Normal speech, volume and content. Symmetrical smile. MUSCULOSKELETAL: Normal extremities with adequate strength and full range of motion. No lower extremity swelling or edema. No calf tenderness. Straight leg test is positive bilaterally at 60 degrees and pain is only in the back no radiation down the legs LYMPHATICS: No significant lymphadenopathy is noted PSYCHIATRIC: Normal psychiatric evaluation. Limitations: no limitations Course Vital Signs 08/08/23 08/08/23 10:35 11:50 Temperature 98.4 F Pulse Rate 100 80 Respiratory 20 18 Rate Blood Pressure 143/77 132/81 O2 Sat by Pulse 97 94 L Oximetry Medical Decision Making - Medical Decision Making Was pt. sent in by a medical professional or institution (, PA, NET MENDER, urgent care, hospital, or intermediate...) When possible be specific @ -No Did you speak to anyone other than the patient for history (EMS, parent, family, police, friend...)? What history was obtained from this source @ -No Did you review nursing and triage notes (agree or disagree)? Why? @ -I reviewed and agree with nursing and triage notes Were old charts reviewed (outside hosp., previous admission, EMS record, old EKG, old radiological studies, urgent care reports/EKG's, intermediate records)? Report findings @ -No old charts were reviewed Differential Diagnosis (chest pain, altered mental status, abdominal pain women, abdominal pain men, vaginal bleeding, weakness, fever, dyspnea, syncope, headache, dizziness, GI bleed, back pain, seizure, CVA, palpatations, mental health, musculoskeletal)? @ -Differential Musculoskeletal Muscular strain, contusion, ligament sprain, fracture, arthritis, septic arthritis, bursitis, cellulitis, muscle spasm, nerve compression, DVT, arterial occlusion, herpes zoster, electrolyte abnormality, tumor.... This is not meant to be in all inclusive list EKG interpreted by me (3pts min.). @ -As above X-rays interpreted by me (1pt min.). @ -Lumbosacral spine x-ray shows no acute abnormality CT interpreted by me (1pt min.). @ -None done U/S interpreted by me (1pt. min.). @ -None done What testing was considered but not performed or refused? (CT, X-rays, U/S, labs)? Why? @ -None What meds were considered but not given or refused? Why? @ -None Did you discuss the management of the patient with other professionals (professionals i.e. JESSICA Gutierrez, NET MENDER, lab, RT, psych nurse, social sciences department chair, civil draftsman, teacher, chief credit officer, dependency case manager)? Give summary @ -No Was smoking cessation discussed for >3mins.? @ -No Was critical care preformed (if so, how long)? @ -No Were there social determinants of health that impacted care today? How? (Homelessness, low income, unemployed, alcoholism, drug addiction, transportation, low edu. Level, literacy, decrease access to med. care, custodial, rehab)? @ -No Was there de-escalation of care discussed even if they declined (Discuss DNR or withdrawal of care, Hospice)? DNR status @ -No What co-morbidities impacted this encounter? (DM, HTN, Smoking, COPD, CAD, Cancer, CVA, ARF, Chemo, Hep., AIDS, mental health diagnosis, sleep apnea, morbid obesity)? @ -None Was patient admitted / discharged? Hospital course, mention meds given and route, prescriptions, significant lab abnormalities, going to OR and other pertinent info. @ -Patient received Toradol and Norflex it decreased the patient's pain a little I gave the patient 0.5 of Dilaudid and she felt considerably better. Patient we discharged home Undiagnosed new problem with uncertain prognosis? @ -No Drug Therapy requiring intensive monitoring for toxicity (Heparin, Nitro, Insulin, Cardizem)? @ -No Were any procedures done? @ -No Diagnosis/symptom? @ -Lumbosacral spine strain Acute, or Chronic, or Acute on Chronic? @ -Acute Uncomplicated (without systemic symptoms) or Complicated (systemic symptoms)? @ -Uncomplicated Side effects of treatment? @ -No Exacerbation, Progression, or Severe Exacerbation? @ -No Poses a threat to life or bodily function? How? (Chest pain, [place], [place], pneumonia, PE, COPD, DKA, ARF, appy, cholecystitis, CVA, Diverticulitis, Homicidal, Suicidal, threat to staff... and all critical care pts) @ -No Disposition Clinical Impression: Lumbosacral strain Disposition: HOME SELF-CARE Condition: Good Prescriptions: Cyclobenzaprine [Flexeril] 10 mg PO TID #20 tab Ketorolac [Toradol] 10 mg PO Q6HR #15 tab Is patient prescribed a controlled substance at d/c from ED?: No Referrals: Edilberto Sabillon MD [Primary Care Provider] - 1-2 days Time of Disposition: 11:56
--- NOTE | 2023-08-08 11:26 | XR ---
EXAMINATION TYPE: XR lumbosacral spine 5 views DATE OF EXAM: 08/08/2023 Comparison: None Clinical History: 53-year-old female Lower back pain Findings: Dextroconvex curvature centered at the thoracolumbar junction. Osteopenia. Surgical material left upp er quadrant. 5 lumbar type vertebral bodies. Facet arthropathy lower lumbar spine. Accentuated lumbar lordosis. Mild inferior endplate deformity L1 likely Schmorl's node. And vertebral body heights othe rwise preserved. Impression: Osteopenia. Suspect a chronic inferior endplate Schmorl's node at L1. Otherwise, no vertebral jake jael collapse or malalignment. Facet arthropathy lower lumbar spine.
[2023-08-08] MEDS: HYDROmorphone 0.5 MG/0.5 ML SYRINGE IM STA (11:34)
[2023-08-08] MEDS: ACET/COD 300 MG/30 MG STARTER PACK 6 TAB BTL PO STA (12:01)
[2023-08-08 12:16] VITALS: BP 132/81; PULSE 80; RESP 18
== END 2023-08-08 12:06 | disposition home or self-care (01) ==
LOC: EC 10:34
DX: S39.012A Strain of muscle, fascia and tendon of lower back, initial encounter (principal); J44.89 Other specified chronic obstructive pulmonary disease; E11.9 Type 2 diabetes mellitus without complications; G47.30 Sleep apnea, unspecified; F41.9 Anxiety disorder, unspecified; F32.A Depression, unspecified; F17.200 Nicotine dependence, unspecified, uncomplicated; Z79.51 Long term (current) use of inhaled steroids; Z79.899 Other long term (current) drug therapy; X50.0XXA Overexertion from strenuous movement or load, initial encounter
CPT/HCPCS: 72110; 99283; 96374; 96375; 96372; J2360; J1885; J1170

== ENCOUNTER 2023-08-11 17:48 | Emergency (ER) | payer OTHER ==
--- NOTE | 2023-08-11 18:26 | ED ---
Back Pain HPI - General Source: patient, RN notes reviewed, old records reviewed Mode of arrival: ambulatory Limitations: no limitations <Dina Abernathy - Last Filed: 08/11/23 18:25> - General Source: patient, RN notes reviewed, old records reviewed <Sreekanth Bowman - Last Filed: 08/11/23 20:54> <Winston Huerta - Last Filed: 08/11/23 22:47> - General Chief Complaint: Back Pain/Injury Stated Complaint: Back Pain Time Seen by Provider: 08/11/23 18:25 - History of Present Illness Initial Comments: Quick note: Patient is a 53-year-old female presented to the ER with a chief complaint of back pain. Patient states she was seen here on Wednesday and discharged with muscle relaxers and pain medication. She states the pain has persisted. Tried to follow-up with PCP but they would not see her per patient. She denies any fevers, IV drug use, saddle paresthesias, bowel or bladder incontinence. (Dina Abernathy) Is a 53-year-old female who presents emergency department complaining of back pain. Was seen here on Wednesday with similar complaints. X-ray at that time negative for any obvious traumatic injury. Back pain started after she awoke 1 morning. States it is along the lower spine. Has radiation into her left but tock and down the posterior aspect of her left leg. Atraumatic. States pain meds do not seem to be helping anymore. Presents for further evaluation. Denies any urinary or bowel incontinence or retention. Denies any saddle paresthesias. Denies any paralysis in her legs. Presents for further evaluation. Patient originally seen as a quick note. I evaluated the patient when she was placed in a room. (Sreekanth Bowman) - Related Data Home Medications Medication Instructions Recorded Confirmed Atorvastatin [Lipitor] 20 mg PO HS 04/18/20 04/28/23 Ipratropium-Albuterol Nebulize 3 ml INHALATION RT-QID PRN 09/06/21 04/28/23 [Duoneb 0.5 mg-3 mg/3 ml Soln] Montelukast [Singulair] 10 mg PO HS 09/06/21 04/28/23 Budesonide-Formot 160-4.5 Mcg 2 puff INHALATION RT-BID PRN 02/08/22 04/28/23 [Symbicort 160-4.5 Mcg Inhaler] buPROPion XL [Wellbutrin XL] 150 mg PO DAILY 03/16/22 04/28/23 ALPRAZolam [Xanax] 0.25 mg PO HS 08/18/22 04/28/23 Albuterol Sulfate [Ventolin HFA] 1 - 2 puff INHALATION RT-Q6H PRN 08/18/22 04/28/23 Ipratropium/Albuter 20-100Mcg 1 puff INHALATION RT-QID PRN 08/18/22 04/28/23 [Combivent Respimat 20-100Mcg Inhaler] Nicotine 21Mg/24Hr Patch [Habitrol] 1 patch TRANSDERM DAILY PRN 11/25/22 04/28/23 Budesonide [Pulmicort] 1 mg INHALATION RT-BID 04/17/23 04/28/23 Formoterol Fumarate [Perforomist] 20 mcg INHALATION RT-BID 04/17/23 04/28/23 Previous Rx's Medication Instructions Recorded Famotidine [Pepcid] 20 mg PO BID #60 tab 03/18/22 busPIRone HCl [Buspar] 5 mg PO BID #60 tab 03/18/22 Acetaminophen Tab [Tylenol] 650 mg PO Q4HR PRN tab 08/22/22 Ipratropium-Albuterol Nebulize 3 ml INHALATION RT-QID each 11/26/22 [Duoneb 0.5 mg-3 mg/3 ml Soln] Levofloxacin [Levaquin] 750 mg PO DAILY #3 tab 04/28/23 Nystatin [Nystatin Oral Susp] 5 ml PO TID #100 ml 04/28/23 predniSONE 10 mg PO DAILY #30 tab 04/28/23 Cyclobenzaprine [Flexeril] 10 mg PO TID #20 tab 08/08/23 Ketorolac [Toradol] 10 mg PO Q6HR #15 tab 08/08/23 HYDROcodone/APAP 5-325MG [Dragoon 1 tab PO Q6HR PRN 3 Days #12 tab 08/11/23 5-325] Allergies Allergy/AdvReac Type Severity Reaction Status Date / Time cephalexin [From Keflex] Allergy Swelling Verified 03/10/24 10:37 of lips Iodinated Contrast Media Allergy Rash/Hives Verified 08/08/23 10:37 Penicillins Allergy Swelling Verified 08/08/23 10:37 lips pollen extracts Allergy Dyspnea Verified 08/08/23 10:37 shellfish derived [Shellfish] Allergy Anaphylaxis Verified 08/08/23 10:37 Review of Systems ROS Other: All systems not noted in ROS Statement are negative. <Dina Abernathy - Last Filed: 08/11/23 18:25> ROS Other: All systems not noted in ROS Statement are negative. <Sreekanth Bowman - Last Filed: 08/11/23 20:54> ROS Other: All systems not noted in ROS Statement are negative. <Winston Huerta - Last Filed: 08/11/23 22:47> ROS Statement: Those systems with pertinent positive or pertinent negative responses have been documented in the HPI. Review of Systems: CONST: Denies fever EYES: Denies blurry vision ENT: Denies nasal congestion C/V: Denies Chest pain RESP: Denies shortness of breath GI: Denies abdominal pain : Denies dysuria SKIN: Denies rash. MSK: Endorses back pain NEURO: Denies headache (Sreekanth Bowman) Past Medical History Past Medical History: Asthma, COPD, Diabetes Mellitus, Eye Disorder, GERD/Reflux, Pneumonia, Sleep Apnea/CPAP/BIPAP Additional Past Medical History / Comment(s): NIDDM type II(diet controlled following wt. loss), glaucoma bilaterally, tachycardia, AKIRA with CPAP not used the machine since she lost 80 lbs post gastric sleeve, Degenerative disc d isease in her back and neck. HX COLITIS. History of rectal diverticulum. 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 History of Any Multi-Drug Resistant Organisms: None Reported Past Surgical History: Bariatric Surgery, Section, Tubal Ligation Additional Past Surgical History / Comment(s): cyst removal under right breast, x 2. gastric sleeve Sx 2016., Colonoscopy 2020. Past Anesthesia/Blood Transfusion Reactions: No Reported Reaction, Motion Sickness Past Psychological History: Anxiety, Depression, Panic Disorder Smoking Status: Current every day smoker Past Alcohol Use History: None Reported Past Drug Use History: None Reported - Past Family History Mother History Unknown: Yes Family Medical History: Cancer, COPD Additional Family Medical History / Comment(s): Breast cancer. She also has a paternal aunt with breast cancer. Father History Unknown: Yes Family Medical History: COPD, Myocardial Infarction ([place]), Vascular Disorder Additional Family Medical History / Comment(s): Father at age 64yrs. <Dina Abernathy - Last Filed: 08/11/23 18:25> General Exam Limitations: no limitations <Dina Abernathy - Last Filed: 08/11/23 18:25> <Sreekanth Bowman - Last Filed: 08/11/23 20:54> - General Exam Comments Initial Comments: Visual Physical Exam Vital signs reviewed General: Well-appearing, nontoxic, no acute distress. Head: Normocephalic, atraumatic Eyes: PERRLA, EOMI ENT: Airway patent Chest: Nonlabored breathing Skin: No visual rash, normal skin tone Neuro: Alert and oriented 3 Musculoskeletal: No gross abnormalities (Dina Abernathy) General: Appears in no acute distress. HEAD: Normal with no signs of head trauma. EYES: EOMI. ENT: Hearing grossly intact. RESPIRATORY: No respiratory distress. C/V: Regular rate and rhythm. ABD: Abdomen is nondistended. EXT: No obvious deformity.. Midline slight left lumbar spine tenderness to palpation as well as paraspinal muscle tenderness to palpation of the left lower lumbar paraspinal muscles. No midline tenderness of the thoracic or cervical spine. Neurovascular intact throughout. SKIN: No rashes or lesions observed on exposed skin. NEURO: Alert and oriented. (Sreekanth Bowman) Course Vital Signs 08/11/23 08/11/23 18:01 21:41 Temperature 98 F 98.7 F Pulse Rate 100 76 Respiratory 20 18 Rate Blood Pressure 175/76 131/83 O2 Sat by Pulse 98 99 Oximetry Medical Decision Making <Dina Abernathy - Last Filed: 08/11/23 18:25> <Sreekanth Bowman - Last Filed: 08/11/23 20:54> <Winston Huerta - Last Filed: 08/11/23 22:47> - Medical Decision Making I performed the quick note portion of this chart. Electronically signed by Dina Abernathy PA-C (Dina Abernathy) Was pt. sent in by a medical professional or institution (JESSICA Gutierrez, PHYSICIAN INDUSTRIAL, urgent care, hospital, or fpc...) When possible be specific @ -No Did you speak to anyone other than the patient for history (EMS, parent, family, police, friend...)? What history was obtained from this source @ -No Did you review nursing and triage notes (agree or disagree)? Why? @ -I reviewed and agree with nursing and triage notes Were old charts reviewed (outside hosp., previous admission, EMS record, old EKG, old radiological studies, urgent care reports/EKG's, fpc records)? Report findings @ -Old charts reviewed Differential Diagnosis (chest pain, altered mental status, abdominal pain women, abdominal pain men, vaginal bleeding, weakness, fever, dyspnea, syncope, headache, dizziness, GI bleed, back pain, seizure, CVA, palpatations, mental health, musculoskeletal)? @ -Differential Musculoskeletal Muscular strain, contusion, ligament sprain, fracture, arthritis, septic arthritis, bursitis, cellulitis, muscle spasm, nerve compression, DVT, arterial occlusion, herpes zoster, electrolyte abnormality, tumor.... This is not meant to be in all inclusive list EKG interpreted by me (3pts min.). @ -None done X-rays interpreted by me (1pt min.). @ -None done CT interpreted by me (1pt min.). @ -Pending U/S interpreted by me (1pt. min.). @ -None done What testing was considered but not performed or refused? (CT, X-rays, U/S, labs)? Why? @ -None What meds were considered but not given or refused? Why? @ -None Did you discuss the management of the patient with other professionals (professionals i.e. , PA, PHYSICIAN INDUSTRIAL, lab, RT, psych nurse, social media campaign manager, dental hygiene instructor, teacher, [employer] officer, rehabilitation case coordinator)? Give summary @ -No Was smoking cessation discussed for >3mins.? @ -No Was critical care preformed (if so, how long)? @ -No Were there social determinants of health that impacted care today? How? (Homelessness, low income, unemployed, alcoholism, drug addiction, transportation, low edu. Level, literacy, decrease access to med. care, [facility], rehab)? @ -No Was there de-escalation of care discussed even if they declined (Discuss DNR or withdrawal of care, Hospice)? DNR status @ -No What co-morbidities impacted this encounter? (DM, HTN, Smoking, COPD, CAD, Cancer, CVA, ARF, Chemo, Hep., AIDS, mental health diagnosis, sleep apnea, morbid obesity)? @ -None Was patient admitted / discharged? Hospital course, mention meds given and route, prescriptions, significant lab abnormalities, going to OR and other pertinent info. @ -Based on patient's presentation and physical exam, she presents for reevaluation for back pain. Seems to be musculoskeletal in nature. It was atraumatic. We will obtain CT of the lumbar spine at this time. Seems to be somewhat sciatic in nature as well. We will symptomatically treat with oral analgesia medications as well is a lidocaine patch. Vital signs within acceptable limits. No concern for cauda equina syndrome at this time. Patient was originally seen as a quick note. I evaluated patient when she was placed in fast-track room 33. CT imaging pending at this time. Signed out to Dr. Huerta pending results of imaging. Undiagnosed new problem with uncertain prognosis? @ -No Drug Therapy requiring intensive monitoring for toxicity (Heparin, Nitro, Insulin, Cardizem)? @ -No Were any procedures done? @ -No (Sreekanth Bowman) Patient care signed out to me by previous shift physician, Dr. Bowman. Briefly, patient is a 53-year-old female presents emergency department for back pain. Plan at signout was to follow-up with pending CT imaging. Patient evaluated 10:35 PM found to be stable medical admission. Imaging studies are negative for any acute processes. Patient be discharged. (Winston Huerta) Disposition <Dina Abernathy - Last Filed: 08/11/23 18:25> <Sreekanth Bowman - Last Filed: 08/11/23 20:54> Is patient prescribed a controlled substance at d/c from ED?: Yes If prescribed controlled substance>3 days was MAPS reviewed?: Prescribed <3 Days Time of Disposition: 22:36 <Winston Huerta - Last Filed: 08/11/23 22:47> Clinical Impression: Mechanical back pain Disposition: HOME SELF-CARE Condition: Good Instructions (If sedation given, give patient instructions): Acute Low Back Pain (ED) Prescriptions: HYDROcodone/APAP 5-325MG [Dragoon 5-325] 1 tab PO Q6HR PRN 3 Days #12 tab PRN Reason: Severe Pain Referrals: Gordon Flores DO [Doctor of Osteopathic Medicine] - 1-2 days
[2023-08-11] MEDS: HYDROcodone/APAP 5-325MG 1 EACH TAB PO STA (19:24)
[2023-08-11] MEDS: LIDOCAINE 4% PATCH TOPICAL STA (19:25)
[2023-08-11 22:04] VITALS: BP 131/83; RESP 18; TEMP 98.7
--- NOTE | 2023-08-11 22:17 | CT ---
EXAMINATION TYPE: CT lumbar spine wo con CT DLP: 797.9 mGycm, Automated exposure control for dose reduction was used. DATE OF EXAM: 08/11/2023 8:30 PM COMPARISON: . CLINICAL INDICATION:Female, 53 years old with history of pain; PHH, back pain/radiates into left leg TECHNIQUE: Unenhanced CT of the lumbar spine was performed, beginning at the mid L1 level and extendi ng through the majority of the sacrum. Axial, sagittal, coronal reformats are submitted with bone alg orithm only. No soft tissue algorithm images are submitted. This limits evaluation. Contrast used: mL of , none. Oral contrast used: none. FINDINGS: Alignment: There are 5 lumbar type vertebral bodies with normal alignment. Bone: No evidence of fracture or vertebral body height loss identified. Osseous mineralization appea rs appropriate and there are no lytic/blastic lesions. Disks, canal and foramina: Mild loss of disc height with mild broad-based posterior disc bulges at each level from L1 through L3 , with mild facet disease. No significant canal or neural foraminal narrowing. L3-L4, there is mild broad-based posterior disc bulge and mild to moderate facet disease, causing mil d canal stenosis and mild to moderate bilateral foraminal stenosis. L4-L5, there is mild broad-based posterior disc bulge and mild to moderate facet disease, causing mil d canal stenosis and mild to moderate bilateral foraminal stenosis. L5-S1, there is some loss of disc height with mild to moderate posterior disc osteophyte complex. Mil d facet disease. Mild canal and neural foraminal stenoses. No definite intracanalicular abnormality or large disc herniations seen by CT. If there is persistent clinical concern, MRI may be of benefit. Other: Moderate calcification of the abdominal aorta and branches. No evidence of AAA. IMPRESSION: 1. No acute osseous abnormality of the lumbar spine. 2. Mild/moderate lumbar spondylosis as described above.
[2023-08-11 23:38] VITALS: PULSE 80
== END 2023-08-11 23:06 | disposition home or self-care (01) ==
LOC: EC 17:48
DX: M54.50 Low back pain, unspecified (principal); J44.89 Other specified chronic obstructive pulmonary disease; E11.9 Type 2 diabetes mellitus without complications; F32.A Depression, unspecified; F41.9 Anxiety disorder, unspecified; Z79.51 Long term (current) use of inhaled steroids; Z79.899 Other long term (current) drug therapy; Z88.0 Allergy status to penicillin; Z88.1 Allergy status to other antibiotic agents; Z91.041 Radiographic dye allergy status; Z91.048 Other nonmedicinal substance allergy status; Z91.013 Allergy to seafood
CPT/HCPCS: 72131; 99284

== ENCOUNTER 2023-08-15 20:57 | Emergency (ER) | payer OTHER ==
[2023-08-15 21:35] VITALS: TEMP 98.7
[2023-08-15] MEDS: LIDOCAINE 4% PATCH TOPICAL ONE (22:09)
[2023-08-15] MEDS: ORPHENADRINE 30 MG/ML 2 ML VIAL IM STA (22:10)
[2023-08-15] MEDS: DEXAMETHASONE SOD PHOSPHATE 10 MG/ML 1 ML VIAL IM STA (22:10)
[2023-08-15] MEDS: KETOROLAC 15 MG/ML 1 ML VIAL IM STA (22:10)
--- NOTE | 2023-08-15 22:21 | ED ---
Back Pain HPI - General Chief Complaint: Back Pain/Injury Stated Complaint: Back pain Time Seen by Provider: 08/15/23 21:45 Source: patient Limitations: no limitations - History of Present Illness Initial Comments: 53-year-old female presenting with chief complaint of back pain. Patient has been having lower back pain for the last week. She was seen here 1 week ago and again on Wednesday of this past week. She had x-ray and CT performed which showed no acute osseous process. Patient is complaining mainly of left flank pain today. She states that she took ibuprofen and a muscle relaxer at home without improvement. Pain is worse with movement. No fever, chills, dysuria, hematuria, urgency, frequency, nausea, vomiting. No new injury or trauma. No loss of bowel or bladder control or saddle paresthesia. - Related Data Home Medications Medication Instructions Recorded Confirmed Atorvastatin [Lipitor] 20 mg PO HS 04/18/20 04/28/23 Ipratropium-Albuterol Nebulize 3 ml INHALATION RT-QID PRN 09/06/21 04/28/23 [Duoneb 0.5 mg-3 mg/3 ml Soln] Montelukast [Singulair] 10 mg PO HS 09/06/21 04/28/23 Budesonide-Formot 160-4.5 Mcg 2 puff INHALATION RT-BID PRN 02/08/22 04/28/23 [Symbicort 160-4.5 Mcg Inhaler] buPROPion XL [Wellbutrin XL] 150 mg PO DAILY 03/16/22 04/28/23 ALPRAZolam [Xanax] 0.25 mg PO HS 08/18/22 04/28/23 Albuterol Sulfate [Ventolin HFA] 1 - 2 puff INHALATION RT-Q6H PRN 08/18/22 04/28/23 Ipratropium/Albuter 20-100Mcg 1 puff INHALATION RT-QID PRN 08/18/22 04/28/23 [Combivent Respimat 20-100Mcg Inhaler] Nicotine 21Mg/24Hr Patch [Habitrol] 1 patch TRANSDERM DAILY PRN 11/25/22 04/28/23 Budesonide [Pulmicort] 1 mg INHALATION RT-BID 04/17/23 04/28/23 Formoterol Fumarate [Perforomist] 20 mcg INHALATION RT-BID 04/17/23 04/28/23 Previous Rx's Medication Instructions Recorded Famotidine [Pepcid] 20 mg PO BID #60 tab 03/18/22 busPIRone HCl [Buspar] 5 mg PO BID #60 tab 03/18/22 Acetaminophen Tab [Tylenol] 650 mg PO Q4HR PRN tab 08/22/22 Ipratropium-Albuterol Nebulize 3 ml INHALATION RT-QID each 11/26/22 [Duoneb 0.5 mg-3 mg/3 ml Soln] Levofloxacin [Levaquin] 750 mg PO DAILY #3 tab 04/28/23 Nystatin [Nystatin Oral Susp] 5 ml PO TID #100 ml 04/28/23 predniSONE 10 mg PO DAILY #30 tab 04/28/23 Cyclobenzaprine [Flexeril] 10 mg PO TID #20 tab 08/08/23 Ketorolac [Toradol] 10 mg PO Q6HR #15 tab 08/08/23 HYDROcodone/APAP 5-325MG [[place] 1 tab PO Q6HR PRN 3 Days #12 tab 08/11/23 5-325] Nitrofurantoin Monohyd/M-Cryst 100 mg PO Q12HR 5 Days #10 cap 08/15/23 [Macrobid] Allergies Allergy/AdvReac Type Severity Reaction Status Date / Time cephalexin [From Keflex] Allergy Swelling Verified 08/15/23 21:17 of lips Iodinated Contrast Media Allergy Rash/Hives Verified 08/15/23 21:17 Penicillins Allergy Swelling Verified 08/15/23 21:17 lips pollen extracts Allergy Dyspnea Verified 08/15/23 21:17 shellfish derived [Shellfish] Allergy Anaphylaxis Verified 08/15/23 21:17 Review of Systems ROS Statement: Those systems with pertinent positive or pertinent negative responses have been documented in the HPI. ROS Other: All systems not noted in ROS Statement are negative. Past Medical History Past Medical History: Asthma, COPD, Diabetes Mellitus, Eye Disorder, GERD/Reflux, Pneumonia, Sleep Apnea/CPAP/BIPAP Additional Past Medical History / Comment(s): NIDDM type II(diet controlled following wt. loss), glaucoma bilaterally, tachycardia, AKIRA with CPAP not used the machine since she lost 80 lbs post gastric sleeve, Degenerative disc disease in her back and neck. HX COLITIS. History of rectal diverticulum. 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 History of Any Multi-Drug Resistant Organisms: None Reported Past Surgical History: Bariatric Surgery, Section, Tubal Ligation Additional Past Surgical History / Comment(s): cyst removal under right breast, x 2. gastric sleeve Sx 2016., Colonoscopy 2020. Past Anesthesia/Blood Transfusion Reactions: No Reported Reaction, Motion Sickness Past Psychological History: Anxiety, Depression, Panic Disorder Smoking Status: Current every day smoker Past Alcohol Use History: None Reported Past Drug Use History: None Reported - Past Family History Mother History Unknown: Yes Family Medical History: Cancer, COPD Additional Family Medical History / Comment(s): Breast cancer. She also has a paternal aunt with breast cancer. Father History Unknown: Yes Family Medical History: COPD, Myocardial Infarction ([place]), Vascular Disorder Additional Family Medical History / Comment(s): Father at age 64yrs. General Exam Limitations: no limitations General appearance: alert, in no apparent distress Head exam: Present: atraumatic, normocephalic Eye exam: Present: normal appearance Neck exam: Present: normal inspection Respiratory exam: Absent: respiratory distress Back exam: Present: normal inspection, muscle spasm Neurological exam: Present: alert, oriented X3 Psychiatric exam: Present: normal affect, normal mood Skin exam: Present: warm, dry Course Vital Signs 08/15/23 08/15/23 21:14 23:32 Temperature 98.7 F Pulse Rate 101 H 99 Respiratory 16 20 Rate Blood Pressure 121/75 143/81 O2 Sat by Pulse 94 L 93 L Oximetry Medical Decision Making - Medical Decision Making Was pt. sent in by a medical professional or institution (, PA, BASE MANAGER, urgent care, hospital, or senior living...) When possible be specific @ -No Did you speak to anyone other than the patient for history (EMS, parent, family, police, friend...)? What history was obtained from this source @ -No Did you review nursing and triage notes (agree or disagree)? Why? @ -I reviewed and agree with nursing and triage notes Were old charts reviewed (outside hosp., previous admission, EMS record, old EKG, old radiological studies, urgent care reports/EKG's, senior living records)? Report findings @ -Patient's most recent visit for back pain I reviewed including her x-ray and CT Differential Diagnosis (chest pain, altered mental status, abdominal pain women, abdominal pain men, vaginal bleeding, weakness, fever, dyspnea, syncope, headache, dizziness, GI bleed, back pain, seizure, CVA, palpatations, mental health, musculoskeletal)? @ - [facility] Differential Back Pain: Strain, zoster, cauda equina syndrome, epidural abscess, vertebral osteomyelitis, discitis, fracture, subluxation, disc herniation, DJD, spinal stenosis, dissection, AAA, pancreatitis, peptic ulcer disease, pyelonephritis, kidney stone this is not meant to be an all-inclusive list. EKG interpreted by me (3pts min.). @ -As above X-rays interpreted by me (1pt min.). @ -None done CT interpreted by me (1pt min.). @ -None done U/S interpreted by me (1pt. min.). @ -None done What testing was considered but not performed or refused? (CT, X-rays, U/S, labs)? Why? @CT was considered however the patient just had one a few days ago and has had no new injury or trauma What meds were considered but not given or refused? Why? @ -None Did you discuss the management of the patient with other professionals (professionals i.e. , PA, BASE MANAGER, lab, RT, psych nurse, social science analyst, corporation lawyer, teacher, campus police officer, manager of case)? Give summary @ -No Was smoking cessation discussed for >3mins.? @ -No Was critical care preformed (if so, how long)? @ -No Were there social determinants of health that impacted care today? How? (Homeles sness, low income, unemployed, alcoholism, drug addiction, transportation, low edu. Level, literacy, decrease access to med. care, [place] [facility], rehab)? @ -No Was there de-escalation of care discussed even if they declined (Discuss DNR or withdrawal of care, Hospice)? DNR status @ -No What co-morbidities impacted this encounter? (DM, HTN, Smoking, COPD, CAD, Cancer, CVA, ARF, Chemo, Hep., AIDS, mental health diagnosis, sleep apnea, morbid obesity)? @ -None Was patient admitted / discharged? Hospital course, mention meds given and route, prescriptions, significant lab abnormalities, going to OR and other pertinent info. @ -33-year-old female present with chief complaint of back pain. This is lower back pain that is worse on the left side. She does admit to radiation down the leg. No red flag symptoms. History and physical exam are conducted. She has left-sided muscle tenderness. Urine is obtained which shows 10 WBCs and 4 RBCs. Patient will be treated for UTI. She is given pain medication and educated on today's findings. Discharged home. Follow-up with PCP. Report back to ER with any new or worsening symptoms. Discussed return parameters and answered all questions. Patient conveyed verbal understanding and agreed to the plan. I discussed this case in detail with my attending Dr. Bowman Undiagnosed new problem with uncertain prognosis? @ -No Drug Therapy requiring intensive monitoring for toxicity (Heparin, Nitro, Insulin, Cardizem)? @ -No Were any procedures done? @ -No Diagnosis/symptom? @ -Lumbosacral strain, UTI Acute, or Chronic, or Acute on Chronic? @ -Acute Uncomplicated (without systemic symptoms) or Complicated (systemic symptoms)? @ -Uncomplicated Side effects of treatment? @ -No Exacerbation, Progression, or Severe Exacerbation? @ -No Poses a threat to life or bodily function? How? (Chest pain, [place], [place], pneumonia, PE, COPD, DKA, ARF, appy, cholecystitis, CVA, Diverticulitis, Homicidal, Suicidal, threat to staff... and all critical care pts) @ -Unlikely - Lab Data Lab Results 08/15/23 Range/Units 22:08 Urine Color Yellow Urine Appearance Cloudy H (Clear) Urine pH 5.0 (5.0-8.0) Ur Specific [place] 1.032 (1.001-1.035) Urine Protein Trace H (Negative) Urine Glucose (UA) Negative (Negative) Urine Ketones Negative (Negative) Urine Blood Negative (Negative) Urine Nitrite Negative (Negative) Urine Bilirubin Negative (Negative) Urine Urobilinogen 3.0 (<2.0) mg/dL Ur Leukocyte Esterase Moderate H (Negative) Urine RBC 4 (0-5) /hpf Urine WBC 10 H (0-5) /hpf Ur Squamous Epith Cells 3 (0-4) /hpf Calcium Oxalate Crystal Few H (None) /hpf Urine Bacteria Rare H (None) /hpf Urine Mucus Few H (None) /hpf Disposition Clinical Impression: Lumbosacral strain, UTI (urinary tract infection) Disposition: HOME SELF-CARE Condition: Good Instructions (If sedation given, give patient instructions): Urinary Tract Infection in Women (ED), Acute Low Back Pain (ED) Additional Instructions: Follow-up with PCP and orthopedics. Report back to ER with any new or worsening symptoms. Prescriptions: Nitrofurantoin Monohyd/M-Cryst [Macrobid] 100 mg PO Q12HR 5 Days #10 cap Is patient prescribed a controlled substance at d/c from ED?: No Referrals: Edilberto Sabillon MD [Primary Care Provider] - 1-2 days Gordon Flores DO [Doctor of Osteopathic Medicine] - 1-2 days Time of Disposition: 23:04
[2023-08-15 22:46] LABS: Appearance,Urine Cloudy (Clear); Bacteria,Urine Rare /hpf; Bilirubin,Urine Negative (Negative); Blood,Urine Negative (Negative); Calcium Oxalate Crystals,Urine Few /hpf; Color,Urine Yellow; Glucose,Urine (UA) Negative (Negative); Ketones,Urine Negative (Negative); Leukocyte Esterase,Urine Moderate (Negative); Mucus,Urine Few /hpf; Nitrite,Urine Negative (Negative); Protein,Urine Trace (Negative); RBC,Urine 4 /hpf (0-5); Specific Gravity,Urine 1.032 (1.001-1.035); Squamous Epithelial Cell,Urine 3 /hpf (0-4); WBC,Urine 10 /hpf (0-5)
[2023-08-15] MEDS: HYDROmorphone 0.5 MG/0.5 ML SYRINGE IM STA (23:07)
[2023-08-15 23:54] VITALS: BP 143/81; PULSE 99; RESP 20
== END 2023-08-15 23:33 | disposition home or self-care (01) ==
LOC: EC 20:57
DX: S39.012A Strain of muscle, fascia and tendon of lower back, initial encounter (principal); N39.0 Urinary tract infection, site not specified; X58.XXXA Exposure to other specified factors, initial encounter
CPT/HCPCS: 81001; 99284; 96372 ×4; J1100; J2360; J1885; J1170

== ENCOUNTER → 2023-08-23 | Outpatient (CLI) | payer OTHER ==
[2023-08-23 18:47] LABS: Basophils # (A) 0.11 X 10*3/uL (0.00-0.10); Basophils % (A) 0.9 %; Eosinophils # (A) 0.35 X 10*3/uL (0.04-0.35); HCT 45.2 % (37.2-46.3); HGB 14.2 g/dL (12.0-15.0); Lymphocytes # (A) 1.83 X 10*3/uL (0.90-5.00); Lymphocytes % (A) 15.5 %; MCH 29.4 pg (27.0-32.0); MCHC 31.4 g/dL (32.0-37.0); MCV 93.6 FL (80.0-97.0); Mean Platelet Volume 10.3 FL (9.5-12.2); Monocytes # (A) 0.99 X 10*3/uL (0.20-1.00); Monocytes % (A) 8.4 %; NRBC Per 100 WBC 0 X 10*3/uL (0.00-0.01); Neutrophils # (A) 8.44 X 10*3/uL (1.80-7.70); Neutrophils % (A) 71.4 %; Platelet Count 311 X 10*3/uL (140-440); RBC 4.83 X 10*6/uL (4.10-5.20); RDW 12.9 % (11.5-14.5); WBC 11.81 X 10*3/uL (4.50-10.00)
[2023-08-23 21:57] LABS: ALT 10 U/L (8-44); AST 13 U/L (13-35); Albumin 4.2 g/dL (3.8-4.9); Albumin/Globulin Ratio 1.75 Ratio (1.60-3.17); Alkaline Phosphatase 132 U/L (41-126); BUN/Creat Ratio 19.57 Ratio (12.00-20.00); Blood Urea Nitrogen 13.7 mg/dL (9.0-27.0); Calcium 9.5 mg/dL (8.7-10.3); Carbon Dioxide 26.8 mmol/L (21.6-31.8); Chloride 105 mmol/L (96-109); Globulin 2.4 g/dL (1.6-3.3); Glucose 94 mg/dL (70-110); Potassium 4.3 mmol/L (3.5-5.5); Sodium 143 mmol/L (135-145); Total Bilirubin 0.5 mg/dL (0.3-1.2); Total Protein 6.6 g/dL (6.2-8.2)
== END | disposition home or self-care (01) ==
LOC: LABWHC1 13:10
PROVIDERS: ATTEND Family Medicine
DX: E11.9 Type 2 diabetes mellitus without complications (principal)
CPT/HCPCS: 36415; 80053; 83036; 85025

== ENCOUNTER → 2023-08-31 | Outpatient (CLI) | payer OTHER ==
[2023-08-31 20:30] LABS: HGB 14.2 g/dL (12.0-15.0); MCH 29.3 pg (27.0-32.0); MCHC 30.9 g/dL (32.0-37.0); MCV 94.8 FL (80.0-97.0); Mean Platelet Volume 10.8 FL (9.5-12.2); NRBC Per 100 WBC 0 X 10*3/uL (0.00-0.01); Platelet Count 295 X 10*3/uL (140-440); RBC 4.85 X 10*6/uL (4.10-5.20); RDW 12.9 % (11.5-14.5); WBC 11.33 X 10*3/uL (4.50-10.00)
[2023-09-01 00:27] LABS: ALT 10 U/L (8-44); AST 12 U/L (13-35); Albumin 4.1 g/dL (3.8-4.9); Albumin/Globulin Ratio 1.78 Ratio (1.60-3.17); Alkaline Phosphatase 132 U/L (41-126); BUN/Creat Ratio 15.29 Ratio (12.00-20.00); Blood Urea Nitrogen 10.7 mg/dL (9.0-27.0); Calcium 9.7 mg/dL (8.7-10.3); Carbon Dioxide 27.9 mmol/L (21.6-31.8); Chloride 106 mmol/L (96-109); Globulin 2.3 g/dL (1.6-3.3); Glucose 88 mg/dL (70-110); Sodium 145 mmol/L (135-145); Total Bilirubin 0.4 mg/dL (0.3-1.2); Total Protein 6.4 g/dL (6.2-8.2)
[2023-09-01 01:52] LABS: INR 0.95 sec (0.93-1.11); Partial Thromboplastin Time 27.7 sec (23.5-31.0); Prothrombin Time 10.3 sec (9.9-11.9)
== END | disposition home or self-care (01) ==
LOC: LABWHC1 15:47
PROVIDERS: ATTEND Orthopaedic Surgery
DX: Z01.818 Encounter for other preprocedural examination (principal); I45.10 Unspecified right bundle-branch block; R94.31 Abnormal electrocardiogram [ECG] [EKG]
CPT/HCPCS: 36415; 80053; 82306; 85027; 85610; 85730; 86850; 86900; 86901; 87070; 93005

== ENCOUNTER → 2023-09-06 | Outpatient (CLI) | payer OTHER ==
--- NOTE | 2023-09-06 19:50 | MR ---
EXAMINATION TYPE: MR lumbar spine wo con DATE OF EXAM: 09/06/2023 COMPARISON: None HISTORY: Low back pain. TECHNIQUE: Multiplanar, multisequence images of the lumbar spine were acquired without IV contrast. Findings: There is an acute moderate compression fracture of T12 without retropulsion. The lumbar vertebral segments are normal in height and alignment there is no fracture or subluxation. The disc spaces are well-maintained in height is no lumbar disc herniation. There is no spinal stenosis. There is mild facet arthropathy at the L2-3, L3-4 and L4-5 levels. Sacrum and SI joints are normal. Paraspinal soft tissues are unremarkable. Conus medullaris cauda equina are normal. The lumbar neural foramina are widely patent. IMPRESSION: 1. Moderate acute compression fracture of T12 without retropulsion. 2. The lumbar spine fracture or malalignment. 3. Lumbar disc herniation or spinal stenosis or neural foraminal stenosis. 4. Mild facet arthropathy at the L2-3, L3-4 and L4-5 levels.
== END | disposition home or self-care (01) ==
LOC: RADMRIMAIN 19:03
PROVIDERS: ATTEND Orthopaedic Surgery
DX: M47.26 Other spondylosis with radiculopathy, lumbar region (principal); M43.16 Spondylolisthesis, lumbar region; M48.54XA Collapsed vertebra, not elsewhere classified, thoracic region, initial encounter for fracture
CPT/HCPCS: 72148

== ENCOUNTER 2023-09-10 09:38 | Day surgery (SDC) | payer OTHER ==
[~2023-09-10 09:38] MED LIST changes: +HYDROmorphone 0.5 MG/0.5 ML SYRINGE IVP PRN; +MIDAZOLAM 2 MG/2 ML VIAL IV PRN; +TRANEXAMIC 1,000 MG/100ML-NACL 1,000 MG in SALINE 1 100ML.BAG IVPB PRN
[2023-09-10] MEDS: LACTATED RINGERS 1,000 ML IV SCH (10:29)
[2023-09-10] MEDS: ONDANSETRON 4 MG/2 ML VIAL IVP PRN (10:31)
[2023-09-10] MEDS: GABAPENTIN 300 MG CAP PO PRN (10:31)
[2023-09-10] MEDS: ACETAMINOPHEN TAB 500 MG TAB PO PRN (10:31)
[2023-09-10 10:42] LABS: Glucose,Whole Blood 98 mg/dL (70-110)
[2023-09-10] MEDS: IOPAMIDOL M200 10 ML VIAL MISCELLANE ONE ×3 (10:50→11:45)
[2023-09-10] MEDS: BUPIVACAINE (PF) 0.5% 30 ML VIAL SQ ONE ×3 (10:51→11:45)
[2023-09-10] MEDS: LIDOCAINE 1%-EPI 1:100,000 20 ML VIAL SQ ONE ×2 (10:51→11:45)
[2023-09-10] MEDS ORDERED: LIDOCAINE 1% INJ 10MG/ML (20 ML MDV) ONE (11:24)
[2023-09-10] MEDS ORDERED: TRANEXAMIC 1,000 MG/100ML-NACL PREMIX BAG ONE (11:24)
[2023-09-10] MEDS ORDERED: fentaNYL (PF) 50 MCG/ML 2 ML AMP ONE (11:24)
[2023-09-10] MEDS ORDERED: SUCCINYLCHOLINE CHLORIDE 200 MG/10 ML VIAL IV ONE (11:24)
[2023-09-10] MEDS ORDERED: MIDAZOLAM 2 MG/2 ML VIAL ONE (11:24)
[2023-09-10] MEDS ORDERED: PROPOFOL 10 MG/ML 20 ML VIAL IV ONE (11:24)
[2023-09-10] MEDS ORDERED: KETOROLAC 15 MG/ML 1 ML VIAL ONE (11:24)
[2023-09-10 12:20] LABS: Glucose,Whole Blood 162 mg/dL (70-110)
--- NOTE | 2023-09-10 12:26 | XR ---
EXAMINATION TYPE: XR thoracic spine 1V DATE OF EXAM: 09/10/2023 COMPARISON: NONE HISTORY: Kyphoplasty TECHNIQUE: 3 views submitted FINDINGS: Limited resolution intraoperative images demonstrate a metallic instrument adjacent to a mild wedge d eformity near the thoracolumbar junction. Subsequent kyphoplasty changes noted. IMPRESSION: See above.
--- NOTE | 2023-09-10 12:27 | FL ---
EXAMINATION TYPE: FL guidance operating room DATE OF EXAM: 09/10/2023 HISTORY: Fluoroscopy time Total dose area product (DAP) in uGy*m?, mGy*cm? (or similar): 5.9400 IMPRESSION: 1. Fluoroscopy time.
--- NOTE | 2023-09-10 12:29 | P.HPOR ---
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 I reviewed the patient's clinical syndrome, physical findings, and imaging studies during the appointment today. It is my impression that the patient has a diagnosis of. 1. T12 compression fracture 2. Lumbar spondylosis 3. Bilateral lower extremity radiculopathy PLAN: -Limit bending, twisting, or lifting >5lbs at this time. -I discussed treatment options with the patient, including operative and non- operative options, and they have elected to proceed with the following surgical procedure: T12 Kyphoplasty The indications, risks, benefits, and alternatives to surgery were discussed with the patient at length. Specifically (but not limited to) the risks of infection, stiffness, recurrence of symptoms, need for revision surgery, local numbness, neurovascular injury, and blood clots were discussed. The patient's questions were answered. The decision to proceed was made. Consent will be obtained for the procedure. -A new prescription was given for Lyrica - An MRI was recommended to define patient's pathology; patient was agreeable and an appointment will be scheduled for the near future. -Ambulate daily -Take medications as directed -Ice and rest for pain and swelling control. FOLLOW UP:Post procedure HISTORY: Ms. Ashraf presents to the office today, 08/18/23, for an evaluation of her mid- low back pain. Patient describes a diffuse burning in the mid-low back with an onset of 1.5 weeks ago. Patient denies any injury or trauma. In addition to her mid-low back pain she states that it radiates into the bilateral lower extremities with tingling. Patient states she did go to [facility] ER and She states her symptoms are exacerbated with prolonged laying, sitting or standing. Patient has trialed the below listed treatment modalities. Otherwise patient denies any f/c/sob/cp, perineal numbness or tingling, bowel or bladder incontinence/retention. Patient is ambulatoryindependently. The patients' past social, medical, family, surgical history, as well as review of systems, have been reviewed. Please refer to the Neurosurgery History and Physical form that has been scanned into our electronic medical record system. 16 points review of systems completed and as stated in HPI, all other systems reviewed are negative. PAST TREATMENTS: PT: No Did it help? n/a Home Exercise: Yes Medications: [place] (completed course) and Flexeril Alternative Interventions: Chiropractic: No Massage therapy: No R.I.C.E: Yes Brace: No Injections: No Social History: Reviewed, see appropriate section of the chart for details. P3 Family History: Reviewed, see appropriate section of the chart for details. P2 Past Medical History: Reviewed, see appropriate section of the chart for details. P1 Current Medications: Rx: ALPRAZolam 0.25 mg tablet Ref: 0 Instructions: QD Rx: atorvastatin 20 mg tablet Ref: 0 Instructions: take 1 tablet (20 mg) by oral route once daily Rx: budesonide-formoterol HFA 160 mcg-4.5 mcg/actuation aerosol inhaler Ref: 0 Instructions: inhale 2 puffs by inhalation route 2 times per day in the morning and evening Rx: busPIRone 7.5 mg tablet Ref: 0 Instructions: QD Rx: cyclobenzaprine 10 mg tablet Ref: 0 Instructions: take 1 tablet (10 mg) by oral route 3 times per day Rx: DuoNeb Ref: 0 Rx: Lyrica 150 mg capsule Ref: 0 Instructions: take 1 capsule (150 mg) by oral route 2 times per day P1 RADIOGRAPHS: XRay Lumbar Multiview (AP, Lateral, Flexion, Extension) with AP pelvis; 5 views taken at [facility] on 08/18/23 : Mild to moderate multilevel spondylotic and degenerative changes with mild degenerative scoliotic curvature. Progressing T12 compression fracture. Pelvis: The visualized sacrum and iliac wings are within normal limits. Trendelenburg is positive to the left. CT [facility] 08/[facility]/23 of LumbarSpine: 1. No acute osseous abnormality of the lumbar spine. 2. Mild/moderate lumbar spondylosis as described above. PHYSICAL EXAM: General: AOX3, NAD, Well hydrate, Well nourished HEENT: No lumps or masses Heart: RRR, no murmur, no gladys Lungs: CTAB, no w/r/r Extremities: No color changes, no pooling Hairy Patches: ABSENT Dorsal Skin Dimples: Normal [employer] la[employer] spots: ABSENT Surgical Incisions: Muscle Appearance: Well formed, no atrophy Palpation: Midline: NO Paracervical: NO Parathoracic: NO Paralumbar: NO SIJ Testing: No Postural Balance: Coronal: BALANCED Sagittal: BALANCED Shoulder height: LEVEL Pelvic Girdle: LEVEL ROM and Appearance: Neck: UNRESTRICTED Lumbar: UNRESTRICTED Shoulders: Symmetrical Hips: Symmetrical Knees: Symmetrical Hands: Symmetrical Feet: Symmetrical VASCULAR STATUS: RUE- 2 LUE-2 RLE-2 LLE-2 Edema: NONE NEUROLOGICAL EXAMINATION: Mental Status: Awake, alert, oriented fully with normal attention, concentration and memory. Fluent appropriate speech. CRANIAL NERVES: I: Olfactory not tested. II: Visual acuity normal, no visual field deficit noted with confrontation. III,IV: Normal pupillary reflexes & intact extraocular movements without nystagmus. V,: Intact symmetrical facial sensation. VII: Intact symmetrical facial motor movementVIII: Hearing intact. IX,X: Intact gag, swallow, & normal voice. XI: Sternocleidomastoid, trapezius function intact. XII: Tongue midline with normal movements. TENSIONING: SLR-NEG Lhermittes- NEG Spurling's Sign- NEG Cubital Percussion- NEG Tinels at wrist- NEG MOTOR EXAM (0-5/5, NT) Muscle appearance:Symmetrical, without signs of atrophy or dystrophy UPPER EXTREMITY RIGHT LEFT Shoulder Abduction 5 5 Biceps 5 5 Triceps 5 5 Wrist Extension 5 5 Hand Intrinsics 5 5 Battery Assembler Dry Cell 5 5 -Hand and finger dexterity intact bilaterally? YES -Dysdiadochokinesia examination negative bilaterally? YES LOWER EXTREMITY RIGHT LEFT Hip Flexion 5 5 Knee Extension 5 5 Knee Flexion 5 5 Dorsiflexion 5 5 Plantarflexion 5 5 EHL 5 5 FHL 5 5 REFLEXES (0-4/2, NT): RUE-2LUE-2 RLE-2 LLE-2 PATHOLOGICAL REFLEXES: Hoffmans: ABSENT BL Clonus: ABSENT BL Babinski: NEG BL Rectal Tone: INTACT SENSATION (0-4, NT): RUE-2LUE-2 RLE-2 LLE-2 Dermatomal deficit: - GAIT AND FUNCTIONAL EVALUATION: Ambulatory aids- INDEPENDENT Rombergs test- NEG toe/heel walk- INTACT Squatting to a min of 60 deg and back- ABLE Single leg stance- ABLE Hand to finger (nose)- ABLE smooth Trendelenburg sign Positive left. PATIENT EDUCATION: Medications Reviewed: YES In our visit today Ms. Ashraf and I have had a chance to go over my understanding of the patient's current condition, the natural course history without intervention and various interventional options. Questions were invited and answered, and the patient wishes to proceed as outlined above. I will be sure to keep you updated after Ms. Ashraf returns here for further follow-up. Thank you again for your referral. Please do not hesitate to contact me if you have any further questions. Signed and authenticated by: Viola Gabriel MSN, SENIOR CLINICAL RESEARCH SCIENTIST-C [facility] [address] [place] [id number] This message is confidential, intended only for the named recipient(s) and may contain information that is privileged or exempt from disclosure under applicable law. If you are not the intended recipient(s), you are notified that the dissemination, distribution or copying of this information is strictly prohibited. If you received this message in error, please notify the sender then delete this message. Rx: Lyrica 150 mg capsule, 60, Ref: 0, take 1 capsule (150 mg) by oral route 2 times per day #Orders: Spine, Lumbar, MV #Orders: MRI Lumbar Spine # SIGNED BY JONAH Kingsley, Nurse Practitioner (STO)08/20/2023 09:01A Past Medical History Past Medical History: Asthma, COPD, Diabetes Mellitus, Eye Disorder, GERD/Reflux, Pneumonia, Sleep Apnea/CPAP/BIPAP Additional Past Medical History / Comment(s): NIDDM type II(diet controlled following wt. loss), glaucoma bilaterally, tachycardia, AKIRA with CPAP not used the machine since she lost 80 lbs post gastric sleeve, USES O2 AT NITE ONLY. 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 HX COLITIS. History of rectal diverticulum. History of Any Multi-Drug Resistant Organisms: None Reported Past Surgical History: Bariatric Surgery, Section, Tubal Ligation Additional Past Surgical History / Comment(s): cyst removal under right breast, x 2. gastric sleeve Sx 2016., Colonoscopy 2020. Past Anesthesia/Blood Transfusion Reactions: No Reported Reaction, Motion Sickness Smoking Status: Current every day smoker - Past Family History Mother History Unknown: Yes Family Medical History: Cancer, COPD Additional Family Medical History / Comment(s): Breast cancer. She also has a paternal aunt with breast cancer. Father History Unknown: Yes Family Medical History: COPD, Myocardial Infarction (SD), Vascular Disorder Additional Family Medical History / Comment(s): Father at age 64yrs. Medications and Allergies Home Medications Medication Instructions Recorded Confirmed Type Atorvastatin [Lipitor] 20 mg PO HS 04/18/20 09/10/23 History Ipratropium-Albuterol Nebulize 3 ml INHALATION RT-QID PRN 09/06/21 09/09/23 History [Duoneb 0.5 mg-3 mg/3 ml Soln] Montelukast [Singulair] 10 mg PO HS 09/06/21 09/10/23 History busPIRone HCl [Buspar] 5 mg PO BID #60 tab 03/18/22 09/10/23 Rx ALPRAZolam [Xanax] 0.25 mg PO HS PRN 08/18/22 09/10/23 History Albuterol Sulfate [Ventolin HFA] 1 - 2 puff INHALATION RT-Q6H PRN 08/18/22 09/10/23 History Ipratropium/Albuter 20-100Mcg 1 puff INHALATION RT-QID PRN 08/18/22 09/09/23 History [Combivent Respimat 20-100Mcg Inhaler] Ipratropium-Albuterol Nebulize 3 ml INHALATION RT-QID each 11/26/22 09/09/23 Rx [Duoneb 0.5 mg-3 mg/3 ml Soln] Formoterol Fumarate [Perforomist] 20 mcg INHALATION RT-BID 04/17/23 09/10/23 History Acetaminophen-Codeine 300-30mg 1 tab PO Q6H PRN 09/09/23 09/10/23 History [Tylenol w/codeine #3] Benzonatate [Tessalon Perle] 200 mg PO DAILY PRN 09/09/23 09/10/23 History Cyclobenzaprine [Flexeril] 10 mg PO TID PRN 09/09/23 09/10/23 History Pregabalin [Lyrica] 150 mg PO HS 09/09/23 09/10/23 History guaiFENesin [Mucinex] 600 mg PO DAILY PRN 09/09/23 09/10/23 History Acetaminophen-Codeine 300-30mg 1 tab PO Q6H PRN #21 tablet 09/10/23 Rx [Tylenol w/codeine #3] Allergies Allergy/AdvReac Type Severity Reaction Status Date / Time cephalexin [From Keflex] Allergy Severe Swelling Verified 09/10/23 09:59 of lips Penicillins Allergy Severe Swelling Verified 09/10/23 09:59 lips shellfish derived [Shellfish] Allergy Severe Anaphylaxis Verified 09/10/23 09:59 Iodinated Contrast Media Allergy Rash/Hives Verified 09/10/23 09:59 pollen extracts Allergy Dyspnea Verified 09/10/23 09:59 Physical Examination Osteopathic Statement: *. No significant issues noted on an osteopathic structural exam other than those noted in the History and Physical/Consult. Results - Labs Labs: Abnormal Lab Results - Last 24 Hours (Table) 09/10/23 Range/Units 12:18 POC Glucose (mg/dL) 162 H (70-110) mg/dL
--- NOTE | 2023-09-10 12:40 | P.OP ---
Date of Procedure: 09/10/23 Preoperative Diagnosis: 1. T12 VCF, INFERIOR ENDPLATE 40% 2. VERTEBRAL BODY FRACTURE WEDGE, COMPRESSION 3. LOW BACK PAIN Postoperative Diagnosis: 1. T12 VCF, INFERIOR ENDPLATE 40% 2. VERTEBRAL BODY FRACTURE WEDGE, COMPRESSION 3. LOW BACK PAIN Procedure(s) Performed: 1. T12 BILATERAL KYPHOPLASTY WITH BIOPSY Implants: LAYTON CEMENT Anesthesia: GETA Surgeon: Gordon Flores Trim Technician #1: Jose Francisco Stokes (WAS PRESENT AND ASSISTED WITH ALL ASPECTS OF THE CASE FROM POSITION TO CLOSURE) Estimated Blood Loss (ml): 5 IV fluids (ml): 500 Urine output (ml): 0 Pathology: none sent Condition: stable Disposition: PACU Indications for Procedure: Pt was s/e in the pre op area. I have reviewed and agree with the note of Viola Gabriel NP. Pt is a 53 yo female presenting for mid to low back pain. She has tried conservative treatment to alleviate her pain like medications, bracing, PT all of which has failed. She continues to have this pain. She wants to be fixed. She has TTP over the posterior aspect midline of her T/L junction with radiation to her low back and paraspinal musculature. She has 5/5 strength in b/l LE and UE all major muscle groups. She is NV intact distally. No pathological reflexes noted in UE or LE. She has no bowel or bladder issues. Imaging shows on XR and MRI T12 VCF with inferior endplate fracture 40% compressed with wedging. There is local kyphosis related to this fracture. No extension posteriorly. No retropulsion or stenosis. We discussed different options for treatment and ultimately pt has elected for T12 kyphoplasty with biopsy. We discussed risks and benefits at length including risk of bleeding, infection, damage to tissues, nerve damage, re-operation, anesthesia risk up to and including . She was willing to assume these risks and all the risks of surgery. She was ready and willing to proceed. The site was marked. Her consent was confirmed and update and paperwork signed. Description of Procedure: Thoracic 12 Kyphoplasty The patient was seen and examined in the preoperative area. All preoperative protocols were followed. Informed consent was obtained, risks and benefits of the procedure were discussed at length. Risks including bleeding infection damage to the surrounding tissue and risk of reoperation were discussed with the patient. Risk of anesthesia up to and including was discussed with the patient. These are outlined in the risk review. They were willing to accept these risks and all the risks of surgery. The patient was given a weight-based dose of antibiotics in the form of 2 g Ancef. The patient was seen and evaluated by the anesthesia team who deemed them fit for surgery. The site was marked, the patient was willing to proceed with the procedure. The patient was transferred to the operative suite by the Department of anesthesia. They were then drifted off to sleep by the department anesthesia and GETA was performed. The patient tolerated this well. Once confirmation of lines and ventilation the patient was transferred to a prone Vikas table very carefully. All bony prominences including wrists, elbows, axilla, chest, hips, and thighs, and feet were padded very well. Special attention was paid to the genitalia, and these were padded accordingly. SCDs were placed on bilateral lower extremities and were connected. Arms were well padded and placed on arm boards up and out in the 90/90 position. Once in position, again we confirmed good ventilation capabilities and that lines were running appropriately. The pa tients Thoracic spine was then exposed. 1010s were placed outlining the incision site. Standard alcohol was used to clean the incision site and allowed to dry. C-arm was used to needle localize the pedicles at T12 and bio-tatianna the patient and confirm level for incision which was marked with a skin marker. Operative briefing was performed with all teams and everyone in agreement to proceed. The patient was then prepped and draped in a normal sterile fashion. Timeout was then performed, and all parties agreed with the procedure to be performed. Skin karli was made b/l. Jamshitdi was passed into the T12 vertebral body via the pedicle. This was done with biplane fluoroscopy. Once in good position in the body the trochar is removed. Biopsy needle was passed into the body and a biopsy was taken. Drill was then passed and biopsy material taken from drill as well. Curette then used to reduce endplate and create more space. Balloon was then passed an inflated which showed good reduction of endplate on AP and Lateral and confirmed central placement. The cement was then placed and pt remained stable. Good fill of cement was seen without extravagation. Once good fill, the Jamshedi was removed and the wound irrigated. The skin was closed with a simple stitch and dressed with a bandaid. The patient was then transferred off the table back to their hospital bed a- traumatically. They were extubated by the department of anesthesia. They were then transferred to PACU in stable condition having tolerated the procedure with no complications.
[2023-09-10 12:57] VITALS: TEMP 97
[2023-09-10 13:38] VITALS: BP 142/69; PULSE 72; RESP 18
== END 2023-09-10 14:16 | disposition home or self-care (01) ==
LOC: OR 09:38
PROVIDERS: ATTEND Orthopaedic Surgery
DX: S22.080A Wedge compression fracture of T11-T12 vertebra, initial encounter for closed fracture (principal); M54.50 Low back pain, unspecified; E11.9 Type 2 diabetes mellitus without complications; F17.200 Nicotine dependence, unspecified, uncomplicated; G47.33 Obstructive sleep apnea (adult) (pediatric); K21.9 Gastro-esophageal reflux disease without esophagitis; J44.9 Chronic obstructive pulmonary disease, unspecified; F41.8 Other specified anxiety disorders; Z88.0 Allergy status to penicillin; Z88.1 Allergy status to other antibiotic agents; Z91.09 Other allergy status, other than to drugs and biological substances; Z91.041 Radiographic dye allergy status; Z88.8 Allergy status to other drugs, medicaments and biological substances; Z91.013 Allergy to seafood; Z99.81 Dependence on supplemental oxygen; Z79.899 Other long term (current) drug therapy; X58.XXXA Exposure to other specified factors, initial encounter
CPT/HCPCS: 88307; 88311; 72020; 22513; 20220; J2250; J0330; J0690; J2405; J2001; J3010; J1885; J2704; Q9966; J0665

== ENCOUNTER 2023-09-22 09:28 | Day surgery (SDC) | payer OTHER ==
[~2023-09-22 09:28] MED LIST changes: -LACTATED RINGERS 1,000 ML IV SCH; +LIDOCAINE 1% (10MG/ML) FOR IV START INTRADERMA PRN; -MIDAZOLAM 2 MG/2 ML VIAL IV PRN; +ONDANSETRON 4 MG/2 ML VIAL IVP PRN; -TRANEXAMIC 1,000 MG/100ML-NACL 1,000 MG in SALINE 1 100ML.BAG IVPB PRN; +droPERidol 5 MG/2 ML VIAL IVP ONE
[2023-09-22] MEDS: LACTATED RINGERS 1,000 ML IV SCH (09:54)
[2023-09-22 10:17] LABS: Glucose,Whole Blood 95 mg/dL (70-110)
[2023-09-22] MEDS: ONDANSETRON 4 MG/2 ML VIAL IVP ONE (10:17)
[2023-09-22] MEDS: FAMOTIDINE 20 MG/2 ML VIAL IV PRN (10:24)
[2023-09-22] MEDS: DEXAMETHASONE SOD PHOSPHATE 4 MG/ML 1 ML VIAL IVP ONE (10:25)
[2023-09-22] MEDS ORDERED: LIDOCAINE 1% INJ 10MG/ML (20 ML MDV) ONE (10:40)
[2023-09-22] MEDS ORDERED: MIDAZOLAM 2 MG/2 ML VIAL ONE (10:40)
[2023-09-22] MEDS ORDERED: fentaNYL (PF) 50 MCG/ML 2 ML AMP ONE (10:40)
[2023-09-22] MEDS ORDERED: SUCCINYLCHOLINE CHLORIDE 200 MG/10 ML VIAL IV ONE (10:40)
[2023-09-22] MEDS ORDERED: PROPOFOL 10 MG/ML 20 ML VIAL IV ONE (10:40)
[2023-09-22] MEDS ORDERED: KETOROLAC 15 MG/ML 1 ML VIAL ONE (10:40)
[2023-09-22] MEDS: CLINDAMYCIN 600 MG in DEXTROSE 5% IN WATER 50 ML IVPB PRN (10:44)
[2023-09-22] MEDS: LIDOCAINE 2%-EPI 1:100,000 20 ML VIAL SQ ONE ×2 (11:03)
[2023-09-22] MEDS: BACITRACIN ZINC 500 UNIT/GM OINT 28.4 GM TUBE TOPICAL ONE (11:33)
--- NOTE | 2023-09-22 11:43 | P.OP ---
Date of Procedure: 09/22/23 Preoperative Diagnosis: left neck lipoma Postoperative Diagnosis: same Procedure(s) Performed: excision left lateral neck lipoma 6 x 4 cm Anesthesia: DANETTEA Surgeon: Triston Valdez Estimated Blood Loss (ml): 5 Pathology: other (left neck lipoma) Condition: stable Disposition: PACU Indications for Procedure: this is a 53-year-old white female with a persistent left neck mass. This has slowly enlarged over time. She had CT which was consistent with a lipoma Operative Findings: approximate 6 x 4 cm right lateral neck lipoma grossly deep to the platysmal layer and anterior to the sternocleidomastoid muscle but did abut the inferior aspect of the parotid gland Description of Procedure: the patient brought in the operative suite and placed supine position. Patient underwent induction of general anesthesia with oral endotracheal intubation without difficulty. The patient was prepped and draped in usual aseptic fashion after being positioned with a head donut and shoulder roll. 1% lidocaine with 1-100,000 epinephrine was infused subcutaneously overlying the mass at the incision site. This for 7 minutes vasoconstrictive effect. A transverse incision was made within the relaxed skin tension lines over the mass on the left neck and carried sharply through the skin and subcutaneous tissue subcutaneous fat and platysma layer. The mass was noted immediately under platysma layer and appeared to be consistent with an encapsulated lipoma. the mass was excised from the surrounding tissue grossly entirely. The mass superior and posteriorly had a but the inferior aspect of the parotid gland and therefore this was dissected off of the tail the parotid. This was inferior to the facial nerve branches. The greater auricular nerve was also identified and preserved. Hemostasis was noted to be good. The wound was irrigated copiously with sterile normal saline. The platysma and subcutaneous layers were closed with inverted interrupted 4-0 Vicryl suture. The skin was closed with running locking 4-0 Prolene suture. Bacitracin and a sterile dressing was placed. The patient was allowed to emerge from general anesthesia having tolerated procedure well was extubated in the operating suite and transferred to the postop recovery area in satisfactory condition.
[2023-09-22 12:26] VITALS: TEMP 97.6
[2023-09-22 13:10] VITALS: BP 131/64; PULSE 81
[2023-09-22 13:11] VITALS: RESP 18
== END 2023-09-22 13:06 | disposition home or self-care (01) ==
LOC: OR 09:28
PROVIDERS: ATTEND Otolaryngology
DX: D17.0 Benign lipomatous neoplasm of skin and subcutaneous tissue of head, face and neck (principal); J44.89 Other specified chronic obstructive pulmonary disease; G47.33 Obstructive sleep apnea (adult) (pediatric); E11.9 Type 2 diabetes mellitus without complications; F41.9 Anxiety disorder, unspecified; F32.A Depression, unspecified; F41.0 Panic disorder [episodic paroxysmal anxiety]; K21.9 Gastro-esophageal reflux disease without esophagitis; Z79.899 Other long term (current) drug therapy; Z88.1 Allergy status to other antibiotic agents; Z88.0 Allergy status to penicillin; Z91.013 Allergy to seafood; Z88.8 Allergy status to other drugs, medicaments and biological substances; Z98.890 Other specified postprocedural states; Z98.84 Bariatric surgery status
CPT/HCPCS: 88304; 21552; J2250; J0330; J1100; J2405; J2001; J3010; J0736; J3490; J1885; J2704

== ENCOUNTER → 2023-10-01 | Outpatient (CLI) | payer OTHER ==
--- NOTE | 2023-10-04 19:33 | MM ---
Reason for Exam: Screening (asymptomatic). Last screening mammogram was performed 12 month(s) ago. Patient History: Menarche at age 13. First Full-Term at age 26. Postmenopausal. Hormonal Contraceptives for 11 years from age 15 until age 26. Paternal aunt had breast cancer at or over age 50. Mother had breast cancer, age 60. Risk Values: Miri 5 year model risk: 2.0%. NCI Lifetime model risk: 14.5%. Prior Study Comparison: 03/15/2019 Bilateral Screening Mammogram, [facility]. 08/01/2021 Bilateral Screening Mammogram, [facility]. 09/29/2022 Bilateral MG 3D screening mammo w/cad, [facility]. Tissue Density: There are scattered areas of fibroglandular density. Findings: Analyzed By CAD. Unchanged upper outer quadrant of global asymmetry on the right. There is no suspicious group of microcalcifications or new suspicious mass in either breast. Overall Assessment: Benign, BI-RAD 2 Management: Screening Mammogram of both breasts in 1 year. . Patient should continue monthly self-breast exams. A clinical breast exam by your physician is recommended on an annual basis. This exam should not preclude additional follow-up of suspicious palpable abnormalities. Note on Miri scores and lifetime risk: 1. A Miir score greater than 3% is considered moderate risk. If this is the case, consider specialist referral to assess eligibility for a risk reducing agent. 2. If overall lifetime risk for the development of breast cancer is 20% or higher, the patient may qualify for future screening with alternating mammogram and breast MRI. Electronically signed and approved by: Christopher Anand M.D. Radiologist
== END | disposition home or self-care (01) ==
LOC: RADMAMWWP 10:47
PROVIDERS: ATTEND Family Medicine
DX: Z12.31 Encounter for screening mammogram for malignant neoplasm of breast (principal); Z80.3 Family history of malignant neoplasm of breast; Z78.0 Asymptomatic menopausal state
CPT/HCPCS: 77063; 77067

== ENCOUNTER 2023-10-11 04:24 | Emergency (ER) | payer OTHER ==
--- NOTE | 2023-10-11 04:42 | ED ---
General Adult HPI - General Chief complaint: Upper Respiratory Infection Stated complaint: SOB Time Seen by Provider: 10/11/23 04:32 Source: patient, RN notes reviewed, old records reviewed Mode of arrival: ambulatory Limitations: no limitations - History of Present Illness Initial comments: 53 yo female presenting for evaluation of cough and had chills. Symptoms have been present for the past 6 days. Patient has been using albuterol at home with some relief. She has congestion as well as subjective fever and chills. History of asthma and COPD. Patient states she is smoking although she is cutting back. - Related Data Home Medications Medication Instructions Recorded Confirmed Atorvastatin [Lipitor] 20 mg PO HS 04/18/20 09/22/23 Montelukast [Singulair] 10 mg PO HS 09/06/21 09/22/23 ALPRAZolam [Xanax] 0.25 mg PO HS PRN 08/18/22 09/22/23 Albuterol Sulfate [Ventolin HFA] 1 - 2 puff INHALATION RT-Q6H PRN 08/18/22 09/22/23 Ipratropium/Albuter 20-100Mcg 1 puff INHALATION RT-QID PRN 08/18/22 09/22/23 [Combivent Respimat 20-100Mcg Inhaler] Formoterol Fumarate [Perforomist] 20 mcg INHALATION RT-BID 04/17/23 09/22/23 Benzonatate [Tessalon Perle] 200 mg PO DAILY PRN 09/09/23 09/22/23 Cyclobenzaprine [Flexeril] 10 mg PO TID PRN 09/09/23 09/22/23 Pregabalin [Lyrica] 150 mg PO HS 09/09/23 09/22/23 guaiFENesin [Mucinex] 600 mg PO DAILY PRN 09/09/23 09/22/23 Ipratropium-Albuterol Nebulize 3 ml INHALATION RT-QID PRN 09/17/23 09/22/23 [Duoneb 0.5 mg-3 mg/3 ml Soln] busPIRone HCL [Buspar] 7.5 mg PO BID 09/17/23 09/22/23 Previous Rx's Medication Instructions Recorded Acetaminophen-Codeine 300-30mg 1 tab PO Q6H PRN #21 tablet 09/10/23 [Tylenol w/codeine #3] Albuterol Inhaler [Ventolin Hfa 1 - 2 puff INHALATION Q4HR PRN #1 10/11/23 Inhaler] each Azithromycin [Zithromax Z Pack] 1 tab PO DIRECTED #6 tab 10/11/23 predniSONE 50 mg PO DAILY #5 tab 10/11/23 Allergies Allergy/AdvReac Type Severity Reaction Status Date / Time cephalexin [From Keflex] Allergy Severe Swelling Verified 10/11/23 04:29 of lips Penicillins Allergy Severe Swelling Verified 10/11/23 04:29 lips shellfish derived [Shellfish] Allergy Severe Anaphylaxis Verified 10/11/23 04:29 Iodinated Contrast Media Allergy Rash/Hives Verified 10/11/23 04:29 pollen extracts Allergy Dyspnea Verified 10/11/23 04:29 Review of Systems ROS Statement: Those systems with pertinent positive or pertinent negative responses have been documented in the HPI. ROS Other: All systems not noted in ROS Statement are negative. Past Medical History Past Medical History: Asthma, COPD Additional Past Medical History / Comment(s): NIDDM type II(diet controlled following wt. loss), glaucoma bilaterally, tachycardia, AKIRA with CPAP not used the machine since she lost 80 lbs post gastric sleeve, USES O2 AT NITE ONLY. 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 HX COLITIS. History of rectal diverticulum. History of Any Multi-Drug Resistant Organisms: None Reported Past Surgical History: Orthopedic Surgery Additional Past Surgical History / Comment(s): cyst removal under right breast, x 2. gastric sleeve Sx 2016., Colonoscopy 2020. Past Anesthesia/Blood Transfusion Reactions: No Reported Reaction, Motion Sickness Past Psychological History: Anxiety, Depression, Panic Disorder Smoking Status: Current every day smoker Past Alcohol Use History: None Reported Past Drug Use History: None Reported - Past Family History Mother History Unknown: Yes Family Medical History: Cancer, COPD Additional Family Medical History / Comment(s): Breast cancer. She also has a paternal aunt with breast cancer. Father History Unknown: Yes Family Medical History: COPD, Myocardial Infarction ([place]), Vascular Disorder Additional Family Medical History / Comment(s): Father at age 64yrs. General Exam Limitations: no limitations General appearance: alert, in no apparent distress Head exam: Present: atraumatic, normocephalic Eye exam: Present: normal appearance, PERRL ENT exam: Present: normal exam Neck exam: Present: normal inspection. Absent: tenderness, meningismus Respiratory exam: Present: wheezes, rhonchi (Scattered). Absent: respiratory distress Cardiovascular Exam: Present: regular rate, normal rhythm GI/Abdominal exam: Absent: distended Neurological exam: Present: alert, oriented X3 Psychiatric exam: Present: normal affect, normal mood Skin exam: Present: warm, dry, intact. Absent: cyanosis, diaphoretic Course Vital Signs 10/11/23 10/11/23 04:28 04:35 Temperature 98.6 F Pulse Rate 107 H Respiratory 20 20 Rate Blood Pressure 111/77 O2 Sat by Pulse 94 L Oximetry Medical Decision Making - Medical Decision Making Was pt. sent in by a medical professional or institution (JESSICA Gutierrez, FOREST [employer]TERS DISPATCHER, urgent care, hospital, or senior living...) When possible be specific @ -No Did you speak to anyone other than the patient for history (EMS, parent, family, police, friend...)? What history was obtained from this source @ -No Did you review nursing and triage notes (agree or disagree)? Why? @ -I reviewed and agree with nursing and triage notes Were old charts reviewed (outside hosp., previous admission, EMS record, old EKG, old radiological studies, urgent care reports/EKG's, senior living records)? Report findings @ -No old charts were reviewed Differential Diagnosis :pneumonia, COPD, upper respiratory infection, bronchitis EKG interpreted by me (3pts min.). @ -As above X-rays interpreted by me (1pt min.). @ -2 view chest, stable cardiomegaly without pneumothorax or focal pneumonia CT interpreted by me (1pt min.). @ -None done U/S interpreted by me (1pt. min.). @ -None done What testing was considered but not performed or refused? (CT, X-rays, U/S, labs)? Why? @ -None What meds were considered but not given or refused? Why? @ -None Did you discuss the management of the patient with other professionals (chhaya davalos i.e. JESSICA Gutierrez, FOREST [employer]TER[employer] DISPATCHER, lab, RT, psych nurse, social service liaison, suede cleaner, teacher, environmental compliance officer, case checker)? Give summary @ -No Was smoking cessation discussed for >3mins.? @ -No Was critical care preformed (if so, how long)? @ -No Were there social determinants of health that impacted care today? How? (Homelessness, low income, unemployed, alcoholism, drug addiction, transportation, low edu. Level, literacy, decrease access to med. care, shelter, rehab)? @ -No Was there de-escalation of care discussed even if they declined (Discuss DNR or withdrawal of care, Hospice)? DNR status @ -No What co-morbidities impacted this encounter? (DM, HTN, Smoking, COPD, CAD, Cancer, CVA, ARF, Chemo, Hep., AIDS, mental health diagnosis, sleep apnea, morbid obesity)? @ -Asthma, COPD, tobacco use Was patient admitted / discharged? Hospital course, mention meds given and route, prescriptions, significant lab abnormalities, going to OR and other pertinent info. @53-year-old female with cough and upper respiratory symptoms. Patient is wheezing without respiratory distress. She will be placed on a course of steroids as well as antibiotics for COPD exacerbation. She is given strict return parameters and will follow-up with either her primary care provider or her stockroom helper. Undiagnosed new problem with uncertain prognosis? @ -No Drug Therapy requiring intensive monitoring for toxicity (Heparin, Nitro, Insulin, Cardizem)? @ -No Were any procedures done? @ -No Diagnosis/symptom? @ -COPD exacerbation Acute, or Chronic, or Acute on Chronic? @ -[Acute on chronic Uncomplicated (without systemic symptoms) or Complicated (systemic symptoms)? @ -Default Side effects of treatment? @ -No Exacerbation, Progression, or Severe Exacerbation? @ -No Poses a threat to life or bodily function? How? (Chest pain, [place], [place], pneumonia, PE, COPD, DKA, ARF, appy, cholecystitis, CVA, Diverticulitis, Homicidal, Suicidal, threat to staff... and all critical care pts) @Low risk at this time Disposition Clinical Impression: COPD (chronic obstructive pulmonary disease) Disposition: HOME SELF-CARE Condition: Fair Instructions (If sedation given, give patient instructions): Upper Respiratory Infection (ED), COPD (Chronic Obstructive Pulmonary Disease) (ED) Prescriptions: predniSONE 50 mg PO DAILY #5 tab Albuterol Inhaler [Ventolin Hfa Inhaler] 1 - 2 puff INHALATION Q4HR PRN #1 each PRN Reason: Shortness Of Breath Azithromycin [Zithromax Z Pack] 1 tab PO DIRECTED #6 tab Is patient prescribed a controlled substance at d/c from ED?: No Referrals: Edilberto Sabillon MD [Primary Care Provider] - 1-2 days Barrie Olmstead DO [Doctor of Osteopathic Medicine] - 1-2 days Time of Disposition: 05:00
[2023-10-11 04:56] VITALS: BP 111/77; PULSE 107; RESP 20; TEMP 98.6
[2023-10-11] MEDS: DEXAMETHASONE SOD PHOSPHATE 10 MG/ML 1 ML VIAL IM STA (05:03)
--- NOTE | 2023-10-11 05:13 | XR ---
EXAMINATION TYPE: XR chest 2V DATE OF EXAM: 10/11/2023 COMPARISON: And chest x-ray April 27, 2023 HISTORY: Cough TECHNIQUE: Frontal and lateral views of the chest are obtained. FINDINGS: There is no suspicious new focal air space opacity, pleural effusion, or pneumothorax seen . Cardiomegaly is redemonstrated. There is vertebroplasty near the thoracolumbar junction identified. IMPRESSION: Cardiomegaly without acute pulmonary process.
== END 2023-10-11 05:24 | disposition home or self-care (01) ==
LOC: EC 04:24
DX: J44.1 Chronic obstructive pulmonary disease with (acute) exacerbation (principal); F17.200 Nicotine dependence, unspecified, uncomplicated; Z88.0 Allergy status to penicillin; Z88.1 Allergy status to other antibiotic agents; Z91.013 Allergy to seafood; Z91.041 Radiographic dye allergy status; Z88.8 Allergy status to other drugs, medicaments and biological substances
CPT/HCPCS: 87636; 71046; 99285; 96372; J1100

== ENCOUNTER 2023-10-12 18:08 | Emergency (ER) | payer OTHER ==
[2023-10-12 18:14] VITALS: TEMP 98.4
[2023-10-12 18:53] LABS: Basophils # (A) 0.1 k/uL (0-0.2); Basophils % (A) 0 %; Eosinophils # (A) 0.1 k/uL (0-0.7); Eosinophils % (A) 1 %; HCT 46.7 % (34.0-46.0); HGB 14.4 gm/dL (11.4-16.0); Lymphocytes # (A) 2.5 k/uL (1.0-4.8); Lymphocytes % (A) 13 %; MCHC 30.9 g/dL (31.0-37.0); MCV 93.8 fL (80.0-100.0); Mean Platelet Volume 7.8; Monocytes # (A) 1.3 k/uL (0-1.0); Monocytes % (A) 7 %; Neutrophils # (A) 14.6 k/uL (1.3-7.7); Neutrophils % (A) 77 %; Platelet Count 297 k/uL (150-450); RBC 4.98 m/uL (3.80-5.40); RDW 14.3 % (11.5-15.5); WBC 19.1 k/uL (3.8-10.6)
--- NOTE | 2023-10-12 19:06 | XR ---
EXAMINATION TYPE: XR chest 2V DATE OF EXAM: 10/12/2023 7:01 PM CLINICAL INDICATION:Female, 53 years old with history of difficulty breathing; [facility] COMPARISON: Chest radiographs from 10/11/2023 TECHNIQUE: XR chest 2V Frontal and lateral views of the chest. FINDINGS: Lungs/Pleura: There is no evidence of pleural effusion, focal consolidation, or pneumothorax. Pulmonary vascularity: Mild pulmonary vascular congestion, stable compared to prior studies. Heart/mediastinum: Cardiomediastinal silhouette is enlarged and stable. Musculoskeletal: No acute osseous pathology. Post vertebroplasty changes of the lower thoracic spine. IMPRESSION: Stable cardiomegaly with mild pulmonary vascular congestion.
[2023-10-12 19:08] LABS: INR 0.9 (<1.2); Prothrombin Time 9.7 sec (10.0-12.5)
--- NOTE | 2023-10-12 19:09 | ED ---
SOB HPI - General Chief Complaint: Shortness of Breath Stated Complaint: SOB, Back Pain Time Seen by Provider: 10/12/23 18:42 Source: patient Mode of arrival: wheelchair Limitations: no limitations - History of Present Illness Initial Comments: This patient is a 53-year-old woman who states she has history of COPD and asthma, who presents with complaint that her breathing has not been normal going back approximately a week now. She is also having nonproductive cough. The patient was seen and prescribed prednisone, but states that she did not get the prescription filled until today and she has not yet taken a dose. She has not noted fever or chills. The cough is for the most part nonproductive. She has not had pain or swelling of the extremities. No change in urination or bowel movements. No fever or chills noted MD Complaint: shortness of breath, cough Onset/Timin -: week(s) Quality: aching Consistency: intermittent Improves With: nothing Worsens With: nothing Known History Of: COPD, asthma Associated Symptoms: cough Treatments Prior to Arrival: none - Related Data Home Oxygen Therapy: No Home Medications Medication Instructions Recorded Confirmed Atorvastatin [Lipitor] 20 mg PO HS 04/18/20 09/22/23 Montelukast [Singulair] 10 mg PO HS 09/06/21 09/22/23 ALPRAZolam [Xanax] 0.25 mg PO HS PRN 08/18/22 09/22/23 Albuterol Sulfate [Ventolin HFA] 1 - 2 puff INHALATION RT-Q6H PRN 08/18/22 09/22/23 Ipratropium/Albuter 20-100Mcg 1 puff INHALATION RT-QID PRN 08/18/22 09/22/23 [Combivent Respimat 20-100Mcg Inhaler] Formoterol Fumarate [Perforomist] 20 mcg INHALATION RT-BID 04/17/23 09/22/23 Benzonatate [Tessalon Perle] 200 mg PO DAILY PRN 09/09/23 09/22/23 Cyclobenzaprine [Flexeril] 10 mg PO TID PRN 09/09/23 09/22/23 Pregabalin [Lyrica] 150 mg PO HS 09/09/23 09/22/23 guaiFENesin [Mucinex] 600 mg PO DAILY PRN 09/09/23 09/22/23 Ipratropium-Albuterol Nebulize 3 ml INHALATION RT-QID PRN 09/17/23 09/22/23 [Duoneb 0.5 mg-3 mg/3 ml Soln] busPIRone HCL [Buspar] 7.5 mg PO BID 09/17/23 09/22/23 Previous Rx's Medication Instructions Recorded Acetaminophen-Codeine 300-30mg 1 tab PO Q6H PRN #21 tablet 09/10/23 [Tylenol w/codeine #3] Albuterol Inhaler [Ventolin Hfa 1 - 2 puff INHALATION Q4HR PRN #1 10/11/23 Inhaler] each Azithromycin [Zithromax Z Pack] 1 tab PO DIRECTED #6 tab 10/11/23 predniSONE 50 mg PO DAILY #5 tab 10/11/23 Azithromycin [Zithromax] 0 mg PO DIRECTED #6 tab 10/12/23 Allergies Allergy/AdvReac Type Severity Reaction Status Date / Time cephalexin [From Keflex] Allergy Severe Swelling Verified 10/11/23 04:29 of lips Penicillins Allergy Severe Swelling Verified 10/11/23 04:29 lips shellfish derived [Shellfish] Allergy Severe Anaphylaxis Verified 10/11/23 04:29 Iodinated Contrast Media Allergy Rash/Hives Verified 10/11/23 04:29 pollen extracts Allergy Dyspnea Verified 10/11/23 04:29 Review of Systems ROS Statement: Those systems with pertinent positive or pertinent negative responses have been documented in the HPI. ROS Other: All systems not noted in ROS Statement are negative. Constitutional: Denies: fever, chills Respiratory: Reports: cough, dyspnea, wheezes. Denies: hemoptysis Cardiovascular: Denies: chest pain, palpitations, edema, syncope Gastrointestinal: Denies: abdominal pain, nausea, vomiting Genitourinary: Denies: dysuria, hematuria Musculoskeletal: Denies: back pain Skin: Denies: rash Neurological: Denies: headache, weakness, numbness Past Medical History Past Medical History: Asthma, COPD, Diabetes Mellitus Additional Past Medical History / Comment(s): NIDDM type II(diet controlled following wt. loss), glaucoma bilaterally, tachycardia, AKIRA with CPAP not used the machine since she lost 80 lbs post gastric sleeve, USES O2 AT NITE ONLY. 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 HX COLITIS. History of rectal diverticulum. History of Any Multi-Drug Resistant Organisms: None Reported Past Surgical History: Bariatric Surgery, Breast Surgery, Orthopedic Surgery Additional Past Surgical History / Comment(s): cyst removal under right breast, x 2. gastric sleeve Sx 2016., Colonoscopy 2020. Past Anesthesia/Blood Transfusion Reactions: No Reported Reaction, Motion Sickness Past Psychological History: Anxiety, Depression, Panic Disorder Smoking Status: Current every day smoker Past Alcohol Use History: None Reported Past Drug Use History: None Reported - Past Family History Mother History Unknown: Yes Family Medical History: Cancer, COPD Additional Family Medical History / Comment(s): Breast cancer. She also has a paternal aunt with breast cancer. Father History Unknown: Yes Family Medical History: COPD, Myocardial Infarction ([place]), Vascular Disorder Additional Family Medical History / Comment(s): Father at age 64yrs. General Exam Limitations: no limitations General appearance: alert, in no apparent distress Head exam: Present: atraumatic, normocephalic Eye exam: Present: normal appearance. Absent: scleral icterus, conjunctival injection ENT exam: Present: normal oropharynx Neck exam: Present: normal inspection Respiratory exam: Present: normal lung sounds bilaterally. Absent: respiratory distress, wheezes, rales, rhonchi, stridor, accessory muscle use Cardiovascular Exam: Present: regular rate, normal rhythm, normal heart sounds. Absent: systolic murmur, diastolic murmur, rubs, gallop GI/Abdominal exam: Present: soft. Absent: distended, tenderness, guarding, rebound, rigid, mass Extremities exam: Present: normal inspection, normal capillary refill. Absent: pedal edema, calf tenderness Back exam: Present: normal inspection. Absent: CVA tenderness (R), CVA tenderness (L) Neurological exam: Present: alert Skin exam: Present: warm, dry, intact, normal color. Absent: rash Course Vital Signs 10/12/23 10/12/23 10/12/23 18:12 18:44 19:25 Temperature 98.4 F Pulse Rate 100 100 Respiratory 20 22 Rate Blood Pressure 149/74 O2 Sat by Pulse 96 Oximetry 10/12/23 10/12/23 10/12/23 19:44 20:30 20:56 Temperature Pulse Rate 104 H 88 104 H Respiratory 18 Rate Blood Pressure 104/60 O2 Sat by Pulse 96 Oximetry 10/12/23 10/12/23 10/12/23 21:00 21:04 22:25 Temperature Pulse Rate 102 H 109 H 100 Respiratory 18 Rate Blood Pressure 138/78 O2 Sat by Pulse 97 Oximetry 10/12/23 10/12/23 22:37 23:53 Temperature Pulse Rate 104 H 76 Respiratory 18 Rate Blood Pressure 119/81 O2 Sat by Pulse 94 L Oximetry Medical Decision Making - Medical Decision Making The patient had chest x-ray that I interpreted as showing cardiomegaly. No infiltrate or pneumothorax. Was pt. sent in by a medical professional or institution (, PA, GAME PROGRAMMER, urgent care, hospital, or snf...) When possible be specific @ -[No] Did you speak to anyone other than the patient for history (EMS, parent, family, police, friend...)? What history was obtained from this source @ -[No] Did you review nursing and triage notes (agree or disagree)? Why? @ -[I reviewed and agree with nursing and triage notes] Were old charts reviewed (outside hosp., previous admission, EMS record, old EKG, old radiological studies, urgent care reports/EKG's, snf records)? Report findings @ -[No old charts were reviewed] Differential Diagnosis (chest pain, altered mental status, abdominal pain women, abdominal pain men, vaginal bleeding, weakness, fever, dyspnea, syncope, headache, dizziness, GI bleed, back pain, seizure, CVA, palpatations, mental health, musculoskeletal)? @ -[Differential Dyspnea: Coronary syndrome, arrhythmia, tamponade, asthma, COPD, pulmonary embolism, pneumonia, pneumothorax, pulmonary effusion, anaphylaxis, diabetic ketoacidosis, flailed chest, pulmonary contusion, diaphragmatic rupture, anemia, neuromuscular, this is not meant to be an all-inclusive list. EKG interpreted by me (3pts min.). @ -[As above] X-rays interpreted by me (1pt min.). @ -[I interpreted as above CT interpreted by me (1pt min.). @ -[None done] U/S interpreted by me (1pt. min.). @ -[None done] What testing was considered but not performed or refused? (CT, X-rays, U/S, labs)? Why? @ -[None] What meds were considered but not given or refused? Why? @ -[None] Did you discuss the management of the patient with other professionals (professionals i.e. , PA, GAME PROGRAMMER, lab, RT, psych nurse, social work specialist, press operator printing, teacher, correctional officer lieutenant, disability case manager)? Give summary @ -[No] Was smoking cessation discussed for >3mins.? @ -[No] Was critical care preformed (if so, how long)? @ -[No] Were there social determinants of health that impacted care today? How? (Homelessness, low income, unemployed, alcoholism, drug addiction, transportation, low edu. Level, literacy, decrease access to med. care, longterm, rehab)? @ -[No] Was there de-escalation of care discussed even if they declined (Discuss DNR or withdrawal of care, Hospice)? DNR status @ -[No] What co-morbidities impacted this encounter? (DM, HTN, Smoking, COPD, CAD, Cancer, CVA, ARF, Chemo, Hep., AIDS, mental health diagnosis, sleep apnea, morbid obesity)? @ -[COPD/asthma. Diabetes Was patient admitted / discharged? Hospital course, mention meds given and route, prescriptions, significant lab abnormalities, going to OR and other pertinent info. @ -[Patient is 53-year-old woman here for dyspnea and with physical exam and workup that are consistent with COPD exacerbation. At this point stable to continue as outpatient. We discussed return parameters and patient will return if no improvement or any worsening. Undiagnosed new problem with uncertain prognosis? @ -[No] Drug Therapy requiring intensive monitoring for toxicity (Heparin, Nitro, Insulin, Cardizem)? @ -[No] Were any procedures done? @ -[No] Diagnosis/symptom? @ -[Acute exacerbation of COPD Pleuritic chest pain Acute, or Chronic, or Acute on Chronic? @ -[Acute Uncomplicated (without systemic symptoms) or Complicated (systemic symptoms)? @ -[Uncomplicated Side effects of treatment? @ -[No] Exacerbation, Progression, or Severe Exacerbation? @ -[No] Poses a threat to life or bodily function? How? (Chest pain, [place], [place], pneumonia, PE, COPD, DKA, ARF, appy, cholecystitis, CVA, Diverticulitis, Homicidal, Suicidal, threat to staff... and all critical care pts) @ -[No] - Lab Data Result diagrams: 10/12/23 18:30 10/12/23 18:30 Lab Results 10/12/23 10/12/23 10/12/23 Range/Units 18:30 18:30 18:30 WBC 19.1 H (3.8-10.6) k/uL RBC 4.98 (3.80-5.40) m/uL Hgb 14.4 (11.4-16.0) gm/dL Hct 46.7 H (34.0-46.0) % MCV 93.8 (80.0-100.0) fL MCH 29.0 (25.0-35.0) pg MCHC 30.9 L (31.0-37.0) g/dL RDW 14.3 (11.5-15.5) % Plt Count 297 (150-450) k/uL MPV 7.8 Neutrophils % 77 % Lymphocytes % 13 % Monocytes % 7 % Eosinophils % 1 % Basophils % 0 % Neutrophils # 14.6 H (1.3-7.7) k/uL Lymphocytes # 2.5 (1.0-4.8) k/uL Monocytes # 1.3 H (0-1.0) k/uL Eosinophils # 0.1 (0-0.7) k/uL Basophils # 0.1 (0-0.2) k/uL PT 9.7 L (10.0-12.5) sec INR 0.9 (<1.2) APTT 21.5 L (22.0-30.0) sec Sodium 142 (137-145) mmol/L Potassium 3.7 (3.5-5.1) mmol/L Chloride 109 H (98-107) mmol/L Carbon Dioxide 27 (22-30) mmol/L Anion Gap 6 mmol/L BUN 21 H (7-17) mg/dL Creatinine 0.73 (0.52-1.04) mg/dL Est GFR (CKD-EPI)AfAm >90 (>60 ml/min/1.73 sqM) Est GFR (CKD-EPI)NonAf >90 (>60 ml/min/1.73 sqM) Glucose 93 (74-99) mg/dL Calcium 9.3 (8.4-10.2) mg/dL Total Bilirubin 0.9 (0.2-1.3) mg/dL AST 17 (14-36) U/L ALT 18 (4-34) U/L Alkaline Phosphatase 131 H (38-126) U/L Troponin I (0.000-0.034) ng/mL Total Protein 6.3 (6.3-8.2) g/dL Albumin 3.8 (3.5-5.0) g/dL 10/12/23 Range/Units 18:30 WBC (3.8-10.6) k/uL RBC (3.80-5.40) m/uL Hgb (11.4-16.0) gm/dL Hct (34.0-46.0) % MCV (80.0-100.0) fL MCH (25.0-35.0) pg MCHC (31.0-37.0) g/dL RDW (11.5-15.5) % Plt Count (150-450) k/uL MPV Neutrophils % % Lymphocytes % % Monocytes % % Eosinophils % % Basophils % % Neutrophils # (1.3-7.7) k/uL Lymphocytes # (1.0-4.8) k/uL Monocytes # (0-1.0) k/uL Eosinophils # (0-0.7) k/uL Basophils # (0-0.2) k/uL PT (10.0-12.5) sec INR (<1.2) APTT (22.0-30.0) sec Sodium (137-145) mmol/L Potassium (3.5-5.1) mmol/L Chloride (98-107) mmol/L Carbon Dioxide (22-30) mmol/L Anion Gap mmol/L BUN (7-17) mg/dL Creatinine (0.52-1.04) mg/dL Est GFR (CKD-EPI)AfAm (>60 ml/min/1.73 sqM) Est GFR (CKD-EPI)NonAf (>60 ml/min/1.73 sqM) Glucose (74-99) mg/dL Calcium (8.4-10.2) mg/dL Total Bilirubin (0.2-1.3) mg/dL AST (14-36) U/L ALT (4-34) U/L Alkaline Phosphatase (38-126) U/L Troponin I <0.012 (0.000-0.034) ng/mL Total Protein (6.3-8.2) g/dL Albumin (3.5-5.0) g/dL - EKG Data -: EKG Interpreted by Me EKG shows normal: sinus rhythm, intervals (Normal), QRS complexes (Incomplete right bundle branch block. Left anterior fascicular block.), ST-T waves (Normal) Rate: normal (Rate 97 bpm) Disposition Clinical Impression: Bronchitis, Pleuritic chest pain Disposition: HOME SELF-CARE Condition: Good Instructions (If sedation given, give patient instructions): Pleurisy (ED) Prescriptions: Azithromycin [Zithromax] 0 mg PO DIRECTED #6 tab Is patient prescribed a controlled substance at d/c from ED?: No Referrals: Edilberto Sabillon MD [Primary Care Provider] - 1-2 days
[2023-10-12 19:15] LABS: ALT 18 U/L (4-34); AST 17 U/L (14-36); African American GFR (CKD) >90 (>60 ml/min/1.73 sqM); Albumin 3.8 g/dL (3.5-5.0); Alkaline Phosphatase 131 U/L (38-126); Anion Gap 6 mmol/L; Blood Urea Nitrogen 21 mg/dL (7-17); Calcium 9.3 mg/dL (8.4-10.2); Carbon Dioxide 27 mmol/L (22-30); Chloride 109 mmol/L (98-107); Glucose 93 mg/dL (74-99); Non-African American GFR(CKD) >90 (>60 ml/min/1.73 sqM); Potassium 3.7 mmol/L (3.5-5.1); Sodium 142 mmol/L (137-145); Total Bilirubin 0.9 mg/dL (0.2-1.3); Total Protein 6.3 g/dL (6.3-8.2)
[2023-10-12 19:16] LABS: Partial Thromboplastin Time 21.5 sec (22.0-30.0)
[2023-10-12] MEDS: ALBUTEROL NEBULIZED 2.5 MG/3 ML INHALATION STA ×4 (19:22→22:25)
[2023-10-12] MEDS: IPRATROPIUM-ALBUTEROL 3 ML NEB INHALATION STA (19:22)
[2023-10-12] MEDS: predniSONE 20 MG TAB PO STA ×2 (20:07→20:10)
[2023-10-12 21:11] VITALS: RESP 18
[2023-10-12] MEDS: methylPREDNISolone SOD SUCCI 125 MG/2 ML VIAL IV STA (23:08)
[2023-10-12] MEDS: AZITHROMYCIN 500 MG TAB PO STA (23:51)
[2023-10-13 00:27] VITALS: BP 119/81; PULSE 76
== END 2023-10-13 00:01 | disposition home or self-care (01) ==
LOC: EC 18:08
DX: J40 Bronchitis, not specified as acute or chronic (principal); R07.81 Pleurodynia; J44.9 Chronic obstructive pulmonary disease, unspecified; F17.200 Nicotine dependence, unspecified, uncomplicated; Z79.899 Other long term (current) drug therapy; Z88.0 Allergy status to penicillin; Z88.1 Allergy status to other antibiotic agents; Z91.041 Radiographic dye allergy status
CPT/HCPCS: 99285 ×2; 36415; 94640 ×2; 93005; 80053; 84484; 85025; 85610; 85730; 71046; 96374; J7512; J2919

== ENCOUNTER → 2023-11-18 | Outpatient (CLI) | payer OTHER ==
--- NOTE | 2023-11-23 15:36 | BD ---
EXAMINATION TYPE: Axial Bone Density DATE OF EXAM: 11/18/2023 CLINICAL HISTORY: 53 years old Female. ICD-10 CODE: Z13.820 scrn for osteoporosis Height: 59 Weight: 152.8 FRAX RISK QUESTIONS: Alcohol (3 or more units per day): no Family History (Parent hip fracture): no Glucocorticoids (More than 3mos): no (Ex: prednisone, prednisolone, methylprednisolone, dexamethasone, and hydrocortisone). History of Fracture in Adulthood: yes Secondary Osteoporosis: 1. Type 1 Diabetes: no 2. Hyperthyroidism: no 3. Menopause before 45: no 4. Malnutrition: no 5. Chronic liver disease: no Rheumatoid Arthritis: no Current Tobacco Use: yes RISK FACTORS HISTORY OF: Hip Fracture (Right/Left): no Spine Fracture: T12 When: 2023 History of Wrist Fracture: no Surgery to Spine/Hip(right/left)/Wrist (right/left): 2023 MEDICATIONS: Thyroid Medications: no Osteoporosis Medications: no EXAM MEASUREMENTS: Bone mineral densitometry was performed using the [employer] System. Bone mineral density as measured about the Lumbar spine is: ----- L1-L4(G/cm2): 0.732 T Score Values are as follows: ----- L1: -3.7 ----- L2: -3.0 ----- L3: -3.9 ----- L4: -4.3 ----- L1-L4: -3.7 Z Score Values are as follows: ----- L1: -3.0 ----- L2: -2.4 ----- L3: -3.3 ----- L4: -3.7 ----- L1-L4: -3.1 Baseline Study Bone mineral density about the R hip (g/cm2): 0.537 Bone mineral density about the L hip (g/cm2): 0.610 T Score values are as follows: -----R Neck: -3.2 -----L Neck: -3.3 -----R Total: -3.7 -----L Total: -3.2 Z Score values are as follows: -----R Neck: -2.3 -----L Neck: -2.4 -----R Total: -3.2 -----L Total: -2.6 Baseline Study FRAX%s: The graph provided illustrates a 27.2% chance for a major osteoporotic fx and a 14.6% chance for the hips probability for fx in 10 years time. IMPRESSION: Osteoporosis (T Score less than -2.5). There is increased fracture risk and therapy is usually indicated based on age. Re-Screen 1-2 years. NOTE: T-SCORE=SD OF THE YOUNG ADULT MEAN.
== END | disposition home or self-care (01) ==
LOC: RADBDWWP 15:10
PROVIDERS: ATTEND Family Medicine
DX: Z13.820 Encounter for screening for osteoporosis (principal); M81.0 Age-related osteoporosis without current pathological fracture
CPT/HCPCS: 77080

== ENCOUNTER → 2023-11-19 | Outpatient (CLI) | payer OTHER ==
--- NOTE | 2023-11-20 18:36 | CT ---
EXAMINATION TYPE: CT thoracic spine wo con DATE OF EXAM: 11/19/2023 COMPARISON: None HISTORY: Pt states she has a T12 fx from coughing. CT DLP: 718.4 mGycm Automated exposure control for dose reduction was used. Unenhanced CT of the thoracic spine was perfo rmed in the axial, coronal and sagittal planes. Bone and soft tissue window settings are submitted. FINDINGS: Moderate compression fracture of T8 with loss of height of about 50%. Minimal bony retropulsion prese nt of 2 mm. No additional acute fracture seen. There is evidence of prior vertebroplasty at T12. Destiny ining levels are intact. Disc spaces demonstrate mild degenerative narrowing throughout. No evidence for disc herniation or central stenosis. IMPRESSION: 1. Moderate T8 compression fracture as discussed. 2. T12 vertebroplasty change.
== END | disposition home or self-care (01) ==
LOC: RADCTMAIN 16:36
PROVIDERS: ATTEND Orthopaedic Surgery
DX: M48.54XA Collapsed vertebra, not elsewhere classified, thoracic region, initial encounter for fracture (principal)
CPT/HCPCS: 72128

== ENCOUNTER → 2023-12-04 | Outpatient (CLI) | payer OTHER ==
[2023-12-04 23:20] LABS: HCT 45.7 % (37.2-46.3); HGB 14.5 g/dL (12.0-15.0); MCH 29.7 pg (27.0-32.0); MCHC 31.7 g/dL (32.0-37.0); MCV 93.6 FL (80.0-97.0); NRBC Per 100 WBC 0 X 10*3/uL (0.00-0.01); Platelet Count 264 X 10*3/uL (140-440); RBC 4.88 X 10*6/uL (4.10-5.20); RDW 13.2 % (11.5-14.5); WBC 12.79 X 10*3/uL (4.50-10.00)
[2023-12-04 23:42] LABS: INR <0.93 sec (0.93-1.11); Prothrombin Time 9.8 sec (9.9-11.9)
[2023-12-05 08:15] LABS: Blood Urea Nitrogen 9.8 mg/dL (9.0-27.0); Glucose 104 mg/dL (70-110)
[2023-12-05 08:16] LABS: ALT 20 U/L (8-44); AST 20 U/L (13-35); Albumin 4.2 g/dL (3.8-4.9); Alkaline Phosphatase 140 U/L (41-126); Calcium 9.5 mg/dL (8.7-10.3); Carbon Dioxide 23.7 mmol/L (21.6-31.8); Chloride 107 mmol/L (96-109); Globulin 2.1 g/dL (1.6-3.3); Potassium 4.2 mmol/L (3.5-5.5); Sodium 144 mmol/L (135-145); Total Bilirubin 0.4 mg/dL (0.3-1.2); Total Protein 6.3 g/dL (6.2-8.2)
== END | disposition home or self-care (01) ==
LOC: LABWHC1 10:26
PROVIDERS: ATTEND Orthopaedic Surgery
DX: S22.069A Unspecified fracture of T7-T8 vertebra, initial encounter for closed fracture (principal); X58.XXXA Exposure to other specified factors, initial encounter
CPT/HCPCS: 36415; 80053; 82306; 85027; 85610; 86850; 86900; 86901; 87070

== ENCOUNTER → 2023-12-28 | Outpatient (CLI) | payer OTHER ==
--- NOTE | 2023-12-29 17:48 | MR ---
EXAMINATION TYPE: MR thoracic spine wo con DATE OF EXAM: 12/28/2023 8:35 PM CLINICAL INDICATION:Female, 53 years old with history of DX MID BACK PAIN [id number]; PHH, Thoracic frac ture, mid and low back pain COMPARISON: 11/19/2023 TECHNIQUE: Multi planar, multi sequence imaging was performed utilizing: T1-weighted, short-tau inver jael recovery and T2-weighted of the thoracic spine. IV Contrast: cc (none if empty) FINDINGS: Alignment: Alignment is within normal limits. Vertebral bodies have preserved heights. Spinal cord: Spinal cord is within normal limits for signal. Discs: Intervertebral disc signal is maintained. No evidence of significant spinal canal or neural fo raminal stenosis. There is no evidence of extradural defects or central spinal canal narrowing at any thoracic vertebral body level Osseous structures: Compression deformities throughout the spine including T8 vertebral body with 50% height loss and mild bony edema, T11 vertebral body with bony edema and 25% height loss/ T12 with hidalgo spected vertebroplasty change and 25-50% height loss. C6-C7 moderate spinal canal stenosis. IMPRESSION: 1. Osseous edema within the T8 and T11 vertebral bodies compatible with acute/subacute fractures.No significant spinal canal stenosis. 2. C6-C7 moderate spinal canal stenosis. 3. No evidence for high-grade stenosis within the thoracic spine.
== END | disposition home or self-care (01) ==
LOC: RADMRIMAIN 20:15
PROVIDERS: ATTEND Orthopaedic Surgery
DX: S22.009A Unspecified fracture of unspecified thoracic vertebra, initial encounter for closed fracture (principal); R60.9 Edema, unspecified; M48.02 Spinal stenosis, cervical region
CPT/HCPCS: 72146

== ENCOUNTER → 2024-03-31 | Outpatient (CLI) | payer OTHER ==
[2024-03-31 15:04] LABS: Basophils # (A) 0.13 X 10*3/uL (0.00-0.10); Basophils % (A) 1.1 %; Eosinophils # (A) 0.34 X 10*3/uL (0.04-0.35); Eosinophils % (A) 2.9 %; HCT 46.8 % (37.2-46.3); HGB 14.8 g/dL (12.0-15.0); Lymphocytes # (A) 2.25 X 10*3/uL (0.90-5.00); Lymphocytes % (A) 19.1 %; MCH 29.6 pg (27.0-32.0); MCHC 31.6 g/dL (32.0-37.0); MCV 93.6 FL (80.0-97.0); Mean Platelet Volume 11.1 FL (9.5-12.2); Monocytes # (A) 1.12 X 10*3/uL (0.20-1.00); Monocytes % (A) 9.5 %; NRBC Per 100 WBC 0 X 10*3/uL (0.00-0.01); Neutrophils # (A) 7.87 X 10*3/uL (1.80-7.70); Platelet Count 258 X 10*3/uL (140-440); RDW 13.6 % (11.5-14.5); WBC 11.76 X 10*3/uL (4.50-10.00)
[2024-03-31 15:13] LABS: ALT 9 U/L (8-44); AST 17 U/L (13-35); Albumin 3.9 g/dL (3.8-4.9); Albumin/Globulin Ratio 1.62 Ratio (1.60-3.17); Alkaline Phosphatase 121 U/L (41-126); BUN/Creat Ratio 15.86 Ratio (12.00-20.00); Blood Urea Nitrogen 11.1 mg/dL (9.0-27.0); Carbon Dioxide 28.3 mmol/L (21.6-31.8); Chloride 106 mmol/L (96-109); Globulin 2.4 g/dL (1.6-3.3); Glucose 106 mg/dL (70-110); Potassium 4.1 mmol/L (3.5-5.5); Sodium 144 mmol/L (135-145); Total Bilirubin 0.6 mg/dL (0.3-1.2); Total Protein 6.3 g/dL (6.2-8.2)
== END | disposition home or self-care (01) ==
LOC: LABWHC1 11:50
PROVIDERS: ATTEND Family Medicine
DX: E11.9 Type 2 diabetes mellitus without complications (principal)
CPT/HCPCS: 36415; 80053; 82043; 82570; 83036; 85025

== ENCOUNTER → 2024-06-27 | Outpatient (CLI) | payer OTHER ==
[2024-06-27 19:37] LABS: Basophils # (A) 0.11 X 10*3/uL (0.00-0.10); Basophils % (A) 1.1 %; Eosinophils # (A) 0.31 X 10*3/uL (0.04-0.35); HCT 50.5 % (37.2-46.3); HGB 16.2 g/dL (12.0-15.0); Lymphocytes # (A) 2.16 X 10*3/uL (0.90-5.00); Lymphocytes % (A) 21.1 %; MCH 28.8 pg (27.0-32.0); MCHC 32.1 g/dL (32.0-37.0); MCV 89.7 FL (80.0-97.0); Mean Platelet Volume 10.8 FL (9.5-12.2); Monocytes % (A) 7.8 %; NRBC Per 100 WBC 0 X 10*3/uL (0.00-0.01); Neutrophils % (A) 66.6 %; Platelet Count 257 X 10*3/uL (140-440); RBC 5.63 X 10*6/uL (4.10-5.20); WBC 10.22 X 10*3/uL (4.50-10.00)
[2024-06-27 20:29] LABS: ALT 13 U/L (8-44); AST 18 U/L (13-35); Albumin 4.5 g/dL (3.8-4.9); Albumin/Globulin Ratio 1.73 Ratio (1.60-3.17); Alkaline Phosphatase 133 U/L (41-126); BUN/Creat Ratio 9.43 Ratio (12.00-20.00); Blood Urea Nitrogen 6.6 mg/dL (9.0-27.0); Calcium 9.8 mg/dL (8.7-10.3); Carbon Dioxide 28.8 mmol/L (21.6-31.8); Chloride 104 mmol/L (96-109); Chol/HDL Ratio 3.95 Ratio; Globulin 2.6 g/dL (1.6-3.3); Glucose 98 mg/dL (70-110); LDL Cholesterol,Calculated 168.9 mg/dL (0.0-131.0); Potassium 4.3 mmol/L (3.5-5.5); Sodium 143 mmol/L (135-145); Total Bilirubin 0.7 mg/dL (0.3-1.2); Total Protein 7.1 g/dL (6.2-8.2)
== END | disposition home or self-care (01) ==
LOC: LABWHC1 16:10
PROVIDERS: ATTEND Family Medicine
DX: Z00.00 Encounter for general adult medical examination without abnormal findings (principal)
CPT/HCPCS: 36415; 80053; 80061; 82306; 85025

== ENCOUNTER → 2024-07-28 | Outpatient (CLI) | payer OTHER ==
--- NOTE | 2024-07-28 12:59 | XR ---
EXAMINATION TYPE: XR chest 2V DATE OF EXAM: 07/28/2024 12:54 PM COMPARISON: Chest x-ray October 12, 2023. CLINICAL INDICATION: Female, 54 years old with history of R05.9 Cough, TECHNIQUE: Frontal and lateral views of the chest are obtained. FINDINGS: Elevated left hemidiaphragm is redemonstrated. There is no focal air space opacity, pleural effusion, or pneumothorax seen. Mild cardiomegaly again seen. The osseous structures are demineral ized. Persistent vertebroplasty near the thoracolumbar junction IMPRESSION: Chronic changes and cardiomegaly without acute pulmonary process. [facility], , 07/28/2024 12:57 PM
== END | disposition home or self-care (01) ==
LOC: RADXRMAIN 12:27
PROVIDERS: ATTEND Family Medicine
DX: I51.7 Cardiomegaly (principal)
CPT/HCPCS: 71046

== ENCOUNTER 2024-08-09 16:42 | Emergency (ER) | payer OTHER ==
--- NOTE | 2024-08-09 18:03 | ED ---
Arrhythmia/Palpitations HPI - General Source: patient, RN notes reviewed Mode of arrival: wheelchair Limitations: no limitations <Gabi Booth - Last Filed: 08/09/24 18:02> <Shae Stewart - Last Filed: 08/10/24 02:01> - General Chief Complaint: Arrhythmia/Palpitations Stated Complaint: abnormal heart beat,dizziness Time Seen by Provider: 08/09/24 18:02 - History of Present Illness Initial Comments: Quick [id number] female presenting for heart palpitations for 2 weeks with associated dizziness. States the palpitations are intermittent. Admits to some mild left-sided chest discomfort. She was recently started on metoprolol for elevated heart rate. (Gabi Booth) 54-year-old female history of COPD, hypertension, diabetes presenting to the emergency department for complaints of her palpitations and dizziness over the past 2 weeks. Patient states that she saw her formula mixer, Dr. Corado, in regard to these complaints where she was started on metoprolol and was assured that her symptoms were improved however they have persisted. States that she will experience a fluttering sensation in her chest with activity where she checked her pulse ox at home with her heart rate elevated in the 130s. She denies dyspnea at rest, peripheral edema, history of blood clots, recent p rolonged travel, recent surgeries, hemoptysis. Patient had appointment with shipping and receiving associate, Dr. Olmstead, yesterday where she was given a IM injection of Solu- Medrol and started on a short course steroid pack. (Shae Stewart) - Related Data Home Medications Medication Instructions Recorded Confirmed Atorvastatin [Lipitor] 20 mg PO HS 04/18/20 12/09/23 Montelukast [Singulair] 10 mg PO HS 09/06/21 12/09/23 ALPRAZolam [Xanax] 0.25 mg PO HS PRN 08/18/22 12/09/23 Albuterol Sulfate [Ventolin HFA] 1 - 2 puff INHALATION RT-Q6H PRN 08/18/22 12/09/23 Ipratropium/Albuter 20-100Mcg 1 puff INHALATION RT-QID PRN 08/18/22 12/09/23 [Combivent Respimat 20-100Mcg Inhaler] Formoterol Fumarate [Perforomist] 20 mcg INHALATION RT-BID 04/17/23 12/09/23 Benzonatate [Tessalon Perle] 200 mg PO DAILY PRN 09/09/23 12/09/23 Cyclobenzaprine [Flexeril] 10 mg PO TID PRN 09/09/23 12/09/23 Pregabalin [Lyrica] 150 mg PO HS 09/09/23 12/09/23 guaiFENesin [Mucinex] 600 mg PO DAILY PRN 09/09/23 12/09/23 Ipratropium-Albuterol Nebulize 3 ml INHALATION RT-QID PRN 09/17/23 12/09/23 [Duoneb 0.5 mg-3 mg/3 ml Soln] busPIRone HCL [Buspar] 7.5 mg PO BID 09/17/23 12/09/23 Previous Rx's Medication Instructions Recorded Acetaminophen-Codeine 300-30mg 1 tab PO Q6H PRN #21 tablet 09/10/23 [Tylenol w/codeine #3] Allergies Allergy/AdvReac Type Severity Reaction Status Date / Time cephalexin [From Keflex] Allergy Severe Swelling Verified 08/09/24 17:30 of lips Penicillins Allergy Severe Swelling Verified 08/09/24 17:30 lips shellfish derived [Shellfish] Allergy Severe Anaphylaxis Verified 08/09/24 17:30 Iodinated Contrast Media Allergy Rash/Hives Verified 08/09/24 17:30 pollen extracts Allergy Dyspnea Verified 08/09/24 17:30 Review of Systems ROS Other: All systems not noted in ROS Statement are negative. <Gabi Booth - Last Filed: 08/09/24 18:02> ROS Other: All systems not noted in ROS Statement are negative. <Shae Stewart - Last Filed: 08/10/24 02:01> ROS Statement: Those systems with pertinent positive or pertinent negative responses have been documented in the HPI. Past Medical History Past Medical History: Asthma, COPD, Diabetes Mellitus Additional Past Medical History / Comment(s): NIDDM type II(diet controlled following wt. loss), glaucoma bilaterally, tachycardia, AKIRA with CPAP not used the machine since she lost 80 lbs post gastric sleeve, USES O2 AT NITE ONLY. 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 HX COLITIS. History of rectal diverticulum. History of Any Multi-Drug Resistant Organisms: None Reported Past Surgical History: Bariatric Surgery, Breast Surgery, Orthopedic Surgery Additional Past Surgical History / Comment(s): cyst removal under right breast, x 2. gastric sleeve Sx 2016., Colonoscopy 2020. Past Anesthesia/Blood Transfusion Reactions: No Reported Reaction, Motion Sickness Past Psychological History: Anxiety, Depression, Panic Disorder Smoking Status: Current every day smoker Past Alcohol Use History: None Reported Past Drug Use History: None Reported - Past Family History Mother History Unknown: Yes Family Medical History: Cancer, COPD Additional Family Medical History / Comment(s): Breast cancer. She also has a paternal aunt with breast cancer. Father History Unknown: Yes Family Medical History: COPD, Myocardial Infarction ([place]), Vascular Disorder Additional Family Medical History / Comment(s): Father at age 64yrs. <Gabi Booth - Last Filed: 08/09/24 18:02> General Exam Limitations: no limitations <Gabi Booth - Last Filed: 08/09/24 18:02> General appearance: alert, in no apparent distress Neck exam: Present: normal inspection. Absent: tenderness, meningismus, lymphadenopathy Respiratory exam: Present: normal lung sounds bilaterally. Absent: respiratory distress, wheezes, rales, rhonchi, stridor Cardiovascular Exam: Present: regular rate, normal rhythm, normal heart sounds. Absent: systolic murmur, diastolic murmur, rubs, gallop, clicks GI/Abdominal exam: Present: soft, normal bowel sounds. Absent: distended, tenderness, guarding, rebound, rigid Extremities exam: Present: normal inspection, full ROM, normal capillary refill. Absent: tenderness, pedal edema, joint swelling, calf tenderness Back exam: Present: normal inspection <Shae Stewart - Last Filed: 08/10/24 02:01> - General Exam Comments Initial Comments: Visual Physical Exam Vital signs reviewed General: Well-appearing, nontoxic, no acute distress. Head: Normocephalic, atraumatic Eyes: PERRLA, EOMI ENT: Airway patent Chest: Nonlabored breathing Skin: No visual rash, normal skin tone Neuro: Alert and oriented 3 Musculoskeletal: No gross abnormalities (Gabi Booth) Course Vital Signs 08/09/24 08/09/24 08/09/24 17:28 19:51 20:58 Temperature 98.9 F Pulse Rate 86 75 79 Respiratory 18 18 18 Rate Blood Pressure 115/75 123/78 O2 Sat by Pulse 95 93 L Oximetry 08/09/24 08/09/24 21:05 21:13 Temperature 98.2 F Pulse Rate 80 80 Respiratory 18 19 Rate Blood Pressure 120/68 O2 Sat by Pulse 95 Oximetry Medical Decision Making <LeobardoGabi - Last Filed: 08/09/24 18:02> - Lab Data Result diagrams: 08/09/24 19:28 08/09/24 19:28 <Shae Stewart - Last Filed: 08/10/24 02:01> - Medical Decision Making I completed the quick note portion of this chart signed Gabi Booth PA-C (Gabi Booth) Was pt. sent in by a medical professional or institution (JESSICA Gutierrez, GARNISHMENT SPECIALIST, urgent care, hospital, or assisted...) When possible be specific @ -No Did you speak to anyone other than the patient for history (EMS, parent, family, police, friend...)? What history was obtained from this source @ -No Did you review nursing and triage notes (agree or disagree)? Why? @ -I reviewed and agree with nursing and triage notes Were old charts reviewed (outside hosp., previous admission, EMS record, old EK G, old radiological studies, urgent care reports/EKG's, assisted records)? Report findings @ -No old charts were reviewed Differential Diagnosis (chest pain, altered mental status, abdominal pain women, abdominal pain men, vaginal bleeding, weakness, fever, dyspnea, syncope, headache, dizziness, GI bleed, back pain, seizure, CVA, palpatations, mental health, musculoskeletal)? @ -Differential Palpitations Ventricular arrhythmias, atrial arrhythmias, myocardial infarction, anemia, thyrotoxicosis, electrolyte imbalance, hypokalemia, pulmonary embolism, pulmonary disease, drugs, alcohol, anxiety, stress.... This is not meant to be an all-inclusive list. EKG interpreted by me (3pts min.). @ -Completed at 1857 sinus rhythm with a ventricular rate of 78, MO interval 156, QRS 110, QTc 425. X-rays interpreted by me (1pt min.). @ -Chest x-ray reveals chronic changes and cardiomegaly without acute process CT interpreted by me (1pt min.). @ -None done U/S interpreted by me (1pt. min.). @ -None done What testing was considered but not performed or refused? (CT, X-rays, U/S, labs)? Why? @ -None What meds were considered but not given or refused? Why? @ -None Did you discuss the management of the patient with other professionals (professionals i.e. DrKate, PA, GARNISHMENT SPECIALIST, lab, RT, psych nurse, sr. social media & mobile manager, divorce lawyer, teacher, highway patrol officer, leather case finisher)? Give summary @ -No Was smoking cessation discussed for >3mins.? @ -No Was critical care preformed (if so, how long)? @ -No Were there social determinants of health that impacted care today? How? (Homelessness, low income, unemployed, alcoholism, drug addiction, transportation, low edu. Level, literacy, decrease access to med. care, half-way, rehab)? @ -No Was there de-escalation of care discussed even if they declined (Discuss DNR or withdrawal of care, Hospice)? DNR status @ -No What co-morbidities impacted this encounter? (DM, HTN, Smoking, COPD, CAD, Cancer, CVA, ARF, Chemo, Hep., AIDS, mental health diagnosis, sleep apnea, morbid obesity)? @ -None Was patient admitted / discharged? Hospital course, mention meds given and route, prescriptions, significant lab abnormalities, going to OR and other pertinent info. @ -Discharge. 54-year-old female presenting to emergency department for chief complaint of intermittent heart palpitations. Patient was [facility] emergency department waiting room as a quick note for laboratory testing was ordered addition to chest x-ray. On my evaluation of the patient she is resting comfortably no signs acute distress. EKG is in sinus rhythm. Initial vitals a re stable with a heart rate of 86, blood pressure 115/75. Laboratory testing for ACS is unremarkable including an undetectable troponin and coagulation within normal. Patient is a leukocytosis 17.6 and neutrophils of 14.5 likely secondary to steroid use. On examination she is noted to have mild bilateral expiratory wheezing likely secondary to COPD. She is provided with breathing treatment. At this time patient is stable for discharge with close follow-up outpatient with cardiology for further evaluation. Vitals have remained stable duration of emergency department visit. Case discussed with Dr. Huerta Undiagnosed new problem with uncertain prognosis? @ -No Drug Therapy requiring intensive monitoring for toxicity (Heparin, Nitro, Insulin, Cardizem)? @ -No Were any procedures done? @ -No Diagnosis/symptom? @ -Heart palpitations Acute, or Chronic, or Acute on Chronic? @ -Acute Uncomplicated (without systemic symptoms) or Complicated (systemic symptoms)? @ -Uncomplicated Side effects of treatment? @ -No Exacerbation, Progression, or Severe Exacerbation? @ -No Poses a threat to life or bodily function? How? (Chest pain, [place], [place], pneumonia, PE, COPD, DKA, ARF, appy, cholecystitis, CVA, Diverticulitis, Homicidal, Suicidal, threat to staff... and all critical care pts) @ -No (Shae Stewart) - Lab Data Lab Results 08/09/24 08/09/24 08/09/24 Range/Units 19:28 19:28 19:28 WBC 17.6 H (3.8-10.6) k/uL RBC 5.06 (3.80-5.40) m/uL Hgb 14.7 (11.4-16.0) gm/dL Hct 47.1 H (34.0-46.0) % MCV 93.0 (80.0-100.0) fL MCH 29.0 (25.0-35.0) pg MCHC 31.2 (31.0-37.0) g/dL RDW 14.9 (11.5-15.5) % Plt Count 267 (150-450) k/uL MPV 8.0 Neutrophils % 83 % Lymphocytes % 10 % Monocytes % 4 % Eosinophils % 1 % Basophils % 0 % Neutrophils # 14.5 H (1.3-7.7) k/uL Lymphocytes # 1.8 (1.0-4.8) k/uL Monocytes # 0.6 (0-1.0) k/uL Eosinophils # 0.1 (0-0.7) k/uL Basophils # 0.0 (0-0.2) k/uL PT 10.4 (10.0-12.5) sec INR 0.9 (<1.2) APTT 21.5 L (22.0-30.0) sec Sodium 140 (137-145) mmol/L Potassium 3.9 (3.5-5.1) mmol/L Chloride 107 (98-107) mmol/L Carbon Dioxide 28 (22-30) mmol/L Anion Gap 5 mmol/L BUN 15 (7-17) mg/dL Creatinine 0.52 (0.52-1.04) mg/dL Est GFR (CKD-EPI)AfAm >90 (>60 ml/min/1.73 sqM) Est GFR (CKD-EPI)NonAf >90 (>60 ml/min/1.73 sqM) Glucose 89 (74-99) mg/dL Calcium 8.6 (8.4-10.2) mg/dL Magnesium 2.2 (1.6-2.3) mg/dL Total Bilirubin 1.2 (0.2-1.3) mg/dL AST 19 (14-36) U/L ALT 20 (4-34) U/L Alkaline Phosphatase 101 (38-126) U/L Troponin I (0.000-0.034) ng/mL Total Protein 6.3 (6.3-8.2) g/dL Albumin 3.7 (3.5-5.0) g/dL 08/09/24 Range/Units 19:28 WBC (3.8-10.6) k/uL RBC (3.80-5.40) m/uL Hgb (11.4-16.0) gm/dL Hct (34.0-46.0) % MCV (80.0-100.0) fL MCH (25.0-35.0) pg MCHC (31.0-37.0) g/dL RDW (11.5-15.5) % Plt Count (150-450) k/uL MPV Neutrophils % % Lymphocytes % % Monocytes % % Eosinophils % % Basophils % % Neutrophils # (1.3-7.7) k/uL Lymphocytes # (1.0-4.8) k/uL Monocytes # (0-1.0) k/uL Eosinophils # (0-0.7) k/uL Basophils # (0-0.2) k/uL PT (10.0-12.5) sec INR (<1.2) APTT (22.0-30.0) sec Sodium (137-145) mmol/L Potassium (3.5-5.1) mmol/L Chloride (98-107) mmol/L Carbon Dioxide (22-30) mmol/L Anion Gap mmol/L BUN (7-17) mg/dL Creatinine (0.52-1.04) mg/dL Est GFR (CKD-EPI)AfAm (>60 ml/min/1.73 sqM) Est GFR (CKD-EPI)NonAf (>60 ml/min/1.73 sqM) Glucose (74-99) mg/dL Calcium (8.4-10.2) mg/dL Magnesium (1.6-2.3) mg/dL Total Bilirubin (0.2-1.3) mg/dL AST (14-36) U/L ALT (4-34) U/L Alkaline Phosphatase (38-126) U/L Troponin I <0.012 (0.000-0.034) ng/mL Total Protein (6.3-8.2) g/dL Albumin (3.5-5.0) g/dL Disposition <Gabi Booth - Last Filed: 08/09/24 18:02> Is patient prescribed a controlled substance at d/c from ED?: No Time of Disposition: 20:20 <Shae Stewart - Last Filed: 08/10/24 02:01> Clinical Impression: Palpitations Disposition: HOME SELF-CARE Condition: Stable Instructions (If sedation given, give patient instructions): Heart Palpitations (ED) Additional Instructions: Please return to the Emergency Department if symptoms worsen or any other conc erns. Complete steroids as prescribed by your shipping and receiving associate. Certainly follow- up with your formula mixer within the next week for further evaluation. Continue to take medications as prescribed. Referrals: Edilberto Sabillon MD [Primary Care Provider] - 1-2 days
--- NOTE | 2024-08-09 18:27 | XR ---
EXAMINATION TYPE: XR chest 2V DATE OF EXAM: 08/09/2024 6:22 PM COMPARISON: Chest radiographs from 07/28/2024, CT thoracic spine 11/19/2023, MR thoracic spine TECHNIQUE: XR chest 2V Frontal and lateral views of the chest. CLINICAL INDICATION:Female, 54 years old with history of dysrhythmia; FINDINGS: Lungs/Pleura: There is no evidence of pleural effusion, focal consolidation, or pneumothorax. Redemo nstrated elevation of the left hemidiaphragm. Pulmonary vascularity: Unremarkable. Heart/mediastinum: Cardiomediastinal silhouette is enlarged and stable. Musculoskeletal: Multiple level degenerative disc disease changes seen throughout the spine. T12 vert ebral augmentation changes redemonstrated. Redemonstration of compression deformity involving the T8 vertebral body. IMPRESSION: Chronic changes and cardiomegaly without acute process. [facility], , 08/09/2024 6:25 PM
[2024-08-09 19:43] LABS: Basophils % (A) 0 %; Eosinophils # (A) 0.1 k/uL (0-0.7); Eosinophils % (A) 1 %; HCT 47.1 % (34.0-46.0); HGB 14.7 gm/dL (11.4-16.0); Lymphocytes # (A) 1.8 k/uL (1.0-4.8); Lymphocytes % (A) 10 %; MCHC 31.2 g/dL (31.0-37.0); Monocytes # (A) 0.6 k/uL (0-1.0); Monocytes % (A) 4 %; Neutrophils # (A) 14.5 k/uL (1.3-7.7); Neutrophils % (A) 83 %; Platelet Count 267 k/uL (150-450); RBC 5.06 m/uL (3.80-5.40); RDW 14.9 % (11.5-15.5); WBC 17.6 k/uL (3.8-10.6)
[2024-08-09 19:59] LABS: ALT 20 U/L (4-34); AST 19 U/L (14-36); African American GFR (CKD) >90 (>60 ml/min/1.73 sqM); Albumin 3.7 g/dL (3.5-5.0); Alkaline Phosphatase 101 U/L (38-126); Anion Gap 5 mmol/L; Blood Urea Nitrogen 15 mg/dL (7-17); Calcium 8.6 mg/dL (8.4-10.2); Carbon Dioxide 28 mmol/L (22-30); Chloride 107 mmol/L (98-107); Glucose 89 mg/dL (74-99); Magnesium 2.2 mg/dL (1.6-2.3); Non-African American GFR(CKD) >90 (>60 ml/min/1.73 sqM); Potassium 3.9 mmol/L (3.5-5.1); Sodium 140 mmol/L (137-145); Total Bilirubin 1.2 mg/dL (0.2-1.3); Total Protein 6.3 g/dL (6.3-8.2)
[2024-08-09 20:00] LABS: INR 0.9 (<1.2); Partial Thromboplastin Time 21.5 sec (22.0-30.0); Prothrombin Time 10.4 sec (10.0-12.5)
[2024-08-09] MEDS: IPRATROPIUM-ALBUTEROL 3 ML NEB INHALATION STA (20:58)
[2024-08-09 21:06] VITALS: PULSE 80
[2024-08-09 21:15] VITALS: BP 120/68; RESP 19; TEMP 98.2
== END 2024-08-09 21:15 | disposition home or self-care (01) ==
LOC: EC 16:42
DX: R00.2 Palpitations (principal); E11.9 Type 2 diabetes mellitus without complications; J44.89 Other specified chronic obstructive pulmonary disease; I10 Essential (primary) hypertension; F17.200 Nicotine dependence, unspecified, uncomplicated
CPT/HCPCS: 36415; 71046; 80053; 83735; 84484; 85025; 85610; 85730; 93005; 94640; 99285

== ENCOUNTER 2024-08-23 15:39 | Inpatient (IN) | payer OTHER ==
[2024-08-23] MEDS ORDERED: IPRATROPIUM-ALBUTEROL 3 ML NEB INHALATION PRN (16:06)
[2024-08-23] MEDS ORDERED: VANCOMYCIN IV PER PHARMACY 1 EACH MISC MISCELLANE PRN (16:07)
[2024-08-23] MEDS ORDERED: PNEUMONIA PROTOCOL UTILIZED 1 EACH MISC PO PRN (16:07)
[2024-08-23] MEDS: MAGNESIUM SULFATE-D5W PMX 1 GM in DEXTROSE/WATER 1 100ML.BAG IVPB STA (16:51)
[2024-08-23] MEDS: LACTATED RINGERS 1,000 ML IV SCH ×2 (16:52→18:22)
[2024-08-23] MEDS: methylPREDNISolone SOD SUCCI 125 MG/2 ML VIAL IV STA (16:52)
[2024-08-23] MEDS: IBUPROFEN 800 MG TAB PO STA (16:55)
[2024-08-23] MEDS: ACETAMINOPHEN TAB 500 MG TAB PO STA (16:55)
[2024-08-23 16:56] LABS: Basophils # (A) 0.1 k/uL (0-0.2); Basophils % (A) 0 %; Eosinophils % (A) 0 %; HCT 49.1 % (34.0-46.0); Lymphocytes # (A) 0.8 k/uL (1.0-4.8); Lymphocytes % (A) 6 %; MCH 29.8 pg (25.0-35.0); MCHC 32.6 g/dL (31.0-37.0); MCV 91.5 fL (80.0-100.0); Mean Platelet Volume 7.9; Monocytes # (A) 0.8 k/uL (0-1.0); Monocytes % (A) 6 %; Neutrophils # (A) 10.6 k/uL (1.3-7.7); Neutrophils % (A) 84 %; Platelet Count 181 k/uL (150-450); RBC 5.37 m/uL (3.80-5.40); RDW 14.2 % (11.5-15.5); WBC 12.6 k/uL (3.8-10.6)
[2024-08-23] MEDS: LEVOFLOXACIN 750MG-D5W PMX 750 MG in DEXTROSE/WATER 1 150ML.BAG IVPB STA (16:56)
[2024-08-23 17:24] LABS: ALT 24 U/L (4-34); African American GFR (CKD) >90 (>60 ml/min/1.73 sqM); Anion Gap 7 mmol/L; Blood Urea Nitrogen 10 mg/dL (7-17); Carbon Dioxide 26 mmol/L (22-30); Chloride 99 mmol/L (98-107); Glucose 91 mg/dL (74-99); Non-African American GFR(CKD) >90 (>60 ml/min/1.73 sqM); Sodium 132 mmol/L (137-145); Total Bilirubin 1.6 mg/dL (0.2-1.3); Total Protein 6.7 g/dL (6.3-8.2)
[2024-08-23 17:27] LABS: AST 23 U/L (14-36); Alkaline Phosphatase 95 U/L (38-126); Magnesium 1.9 mg/dL (1.6-2.3)
[2024-08-23 17:32] LABS: Influenza A Detected (Not Detectd); Influenza B Not Detected (Not Detectd); RSV Not Detected (Not Detectd)
[2024-08-23] MEDS: IPRATROPIUM-ALBUTEROL 3 ML NEB INHALATION STA (17:38)
[2024-08-23] MEDS: VANCOMYCIN 1,250 MG in SODIUM CHLORIDE 0.9% 250 ML IVPB ONE (18:22)
--- NOTE | 2024-08-23 18:23 | XR ---
EXAMINATION TYPE: XR chest 2V DATE OF EXAM: 08/23/2024 CLINICAL INDICATION: Female, 54 years old with history of difficulty breathing, TECHNIQUE: Frontal and lateral views of the chest are obtained. COMPARISON: Chest x-ray 2 weeks earlier FINDINGS: There is no suspicious new focal air space opacity, pleural effusion, or pneumothorax seen . Cardiomegaly is redemonstrated. The osseous structures remain demineralized. Vertebroplasty near the thoracolumbar junction is redemonstrated. There is redemonstration of a right-sided arch which is normal variant IMPRESSION: Chronic changes and cardiomegaly without acute pulmonary process. [facility], , 08/23/2024 6:21 PM
--- NOTE | 2024-08-23 18:34 | ED ---
General Adult HPI - General Chief complaint: Shortness of Breath Stated complaint: BRADY Time Seen by Provider: 08/23/24 16:00 Source: patient, RN notes reviewed, old records reviewed Mode of arrival: ambulatory Limitations: no limitations - History of Present Illness Initial comments: Patient is a 54-year-old female who presents emergency department complaining of shortness of breath, fevers, productive cough. Patient states she has been hav ing ongoing symptoms for multiple weeks. Seems to have gotten worse over the last couple days. Has a history of COPD and is chronically on 2 L nasal cannula at home. Endorses productive cough of yellowish-green sputum. Endorses fevers as well. Also has a history of diabetes. Denies any chest pain. Denies nausea or vomiting or diarrhea. No known sick contacts. Presents for further evaluati on at this time. No recent IV antibiotics. - Related Data Home Medications Medication Instructions Recorded Confirmed Albuterol Sulfate [Ventolin HFA] 1 - 2 puff INHALATION RT-Q6H PRN 08/18/22 08/23/24 Ipratropium/Albuter 20-100Mcg 1 puff INHALATION RT-QID PRN 08/18/22 08/23/24 [Combivent Respimat 20-100Mcg Inhaler] Formoterol Fumarate [Perforomist] 20 mcg INHALATION RT-BID 04/17/23 08/23/24 Cyclobenzaprine [Flexeril] 10 mg PO TID PRN 09/09/23 08/23/24 Pregabalin [Lyrica] 150 mg PO BID 09/09/23 08/23/24 Ipratropium-Albuterol Nebulize 3 ml INHALATION RT-QID PRN 09/17/23 08/23/24 [Duoneb 0.5 mg-3 mg/3 ml Soln] Alendronate Sodium [Fosamax] 70 mg PO WEEKLY 08/23/24 08/23/24 Budesonide [Pulmicort] 1 mg INHALATION RT-BID 08/23/24 08/23/24 Budesonide-Formot 160-4.5 Mcg 2 puff INHALATION RT-BID PRN 08/23/24 08/23/24 [Symbicort 160-4.5 Mcg Inhaler] Famotidine [Pepcid] 20 mg PO BID PRN 08/23/24 08/23/24 Metoprolol Tartrate [Lopressor] 25 mg PO BID 08/23/24 08/23/24 Previous Rx's Medication Instructions Recorded Acetaminophen-Codeine 300-30mg 1 tab PO Q6H PRN #21 tablet 09/10/23 [Tylenol w/codeine #3] Allergies Allergy/AdvReac Type Severity Reaction Status Date / Time cephalexin [From Keflex] Allergy Severe Swelling Verified 08/23/24 16:13 of lips Penicillins Allergy Severe Swelling Verified 08/23/24 16:13 lips shellfish derived [Shellfish] Allergy Severe Anaphylaxis Verified 08/23/24 16:13 Iodinated Contrast Media Allergy Rash/Hives Verified 08/23/24 16:13 pollen extracts Allergy Dyspnea Verified 08/23/24 16:13 Review of Systems ROS Statement: Those systems with pertinent positive or pertinent negative responses have been documented in the HPI. Review of Systems: CONST: Endorses fever EYES: Denies blurry vision ENT: Denies nasal congestion C/V: Denies Chest pain RESP: Endorses shortness of breath, cough, congestion GI: Denies abdominal pain : Denies dysuria SKIN: Denies rash. MSK: Denies joint pain. NEURO: Denies headache ROS Other: All systems not noted in ROS Statement are negative. Past Medical History Past Medical History: Asthma, COPD, Diabetes Mellitus Additional Past Medical History / Comment(s): NIDDM type II(diet controlled following wt. loss), glaucoma bilaterally, tachycardia, AKIRA with CPAP not used the machine since she lost 80 lbs post gastric sleeve, USES O2 AT NITE ONLY. 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 HX COLITIS. History of rectal diverticulum. History of Any Multi-Drug Resistant Organisms: None Reported Past Surgical History: Bariatric Surgery, Breast Surgery, Orthopedic Surgery Additional Past Surgical History / Comment(s): cyst removal under right breast, x 2. gastric sleeve Sx 2016., Colonoscopy 2020. Past Anesthesia/Blood Transfusion Reactions: No Reported Reaction, Motion Sickness Past Psychological History: Anxiety, Depression, Panic Disorder Smoking Status: Current every day smoker Past Alcohol Use History: None Reported Past Drug Use History: None Reported - Past Family History Mother History Unknown: Yes Family Medical History: Cancer, COPD Additional Family Medical History / Comment(s): Breast cancer. She also has a paternal aunt with breast cancer. Father History Unknown: Yes Family Medical History: COPD, Myocardial Infarction ([place]), Vascular Disorder Additional Family Medical History / Comment(s): Father at age 64yrs. General Exam - General Exam Comments Initial Comments: General: Appears in mild to moderate distress. Febrile. HEAD: Normal with no signs of head trauma. EYES: PERRLA, EOMI, conjunctiva normal, no discharge. ENT: Hearing grossly intact, normal oropharynx. Dry mucous membranes. RESPIRATORY: Bilateral end expiratory wheezing. Hypoxic initially on. Room air. Patient is chronically on 2 L nasal cannula oxygen. C/V: Tachycardic with regular rhythm. S1 and S2 auscultated. Peripheral pulses 2+ intact throughout. ABD: Abd is soft, nontender, nondistended EXT: Normal range of motion, no obvious deformity SKIN: No rashes or lesions observed on exposed skin. NEURO: Alert and oriented x 4. Limitations: no limitations Course Vital Signs 08/23/24 08/23/24 08/23/24 15:48 17:00 17:39 Temperature 103.0 F H Pulse Rate 117 H 103 H 100 Respiratory 18 20 Rate Blood Pressure 144/86 167/102 O2 Sat by Pulse 90 L 96 Oximetry 08/23/24 08/23/24 08/23/24 18:02 18:26 20:17 Temperature 101.1 F H Pulse Rate 104 H 107 H 93 Respiratory 22 Rate Blood Pressure 108/66 O2 Sat by Pulse 96 Oximetry 08/23/24 08/23/24 20:29 21:29 Temperature Pulse Rate 86 87 Respiratory 18 Rate Blood Pressure 114/72 O2 Sat by Pulse Oximetry Medical Decision Making - Medical Decision Making Was pt. sent in by a medical professional or institution (, PA, [facility], urgent care, hospital, or [facility]...) When possible be specific @ -No Did you speak to anyone other than the patient for history (EMS, parent, family, police, friend...)? What history was obtained from this source @ -No Did you review nursing and triage notes (agree or disagree)? Why? @ -I reviewed and agree with nursing and triage notes Were old charts reviewed (outside hosp., previous admission, EMS record, old EKG, old radiological studies, urgent care reports/EKG's, [facility] records)? Report findings @ -Old charts reviewed confirming patient is on his current oxygen at home. Differential Diagnosis (chest pain, altered mental status, abdominal pain women, abdominal pain men, vaginal bleeding, weakness, fever, dyspnea, syncope, headache, dizziness, GI bleed, back pain, seizure, CVA, palpatations, mental health, musculoskeletal)? @ -Pneumonia, sepsis, influenza, COVID, COPD. This list is not all inclusive. EKG interpreted by me (3pts min.). @ -As above X-rays interpreted by me (1pt min.). @ -Chest x-ray reveals no obvious acute infiltrate or pneumonia. CT interpreted by me (1pt min.). @ -None done U/S interpreted by me (1pt. min.). @ -None done What testing was considered but not performed or refused? (CT, X-rays, U/S, labs)? Why? @ -None What meds were considered but not given or refused? Why? @ -None Did you discuss the management of the patient with other professionals (professionals i.e. , PA, [facility], lab, RT, psych nurse, transition social worker, body and frame technician, teacher, reserve officer, behavioral health case manager)? Give summary @ -Discussed with the admitting provider, Dr. Aguilar who accepted the admission. Was smoking cessation discussed for >3mins.? @ -No Was critical care preformed (if so, how long)? @ -Yes, 33 minutes. Were there social determinants of health that impacted care today? How? (Homelessness, low income, unemployed, alcoholism, drug addiction, transportation, low edu. Level, literacy, decrease access to med. care, residential, rehab)? @ -No Was there de-escalation of care discussed even if they declined (Discuss DNR or withdrawal of care, Hospice)? DNR status @ -No What co-morbidities impacted this encounter? (DM, HTN, Smoking, COPD, CAD, C ancer, CVA, ARF, Chemo, Hep., AIDS, mental health diagnosis, sleep apnea, morbid obesity)? @ -COPD Was patient admitted / discharged? Hospital course, mention meds given and route, prescriptions, significant lab abnormalities, going to OR and other pertinent info. @ -Patient presents with upper respiratory symptoms. Patient is febrile, tachycardic, as well as having increased work of breathing with some hypoxia. At this time, 1600 it was determined that patient does meet sepsis criteria with multiple SIRS criteria. Later on also found to have an elevated leukocytosis.. We will obtain broad infectious workup. Blood cultures obtained and sent. Patient empirically started on IV antibiotics. Due to patient's allergies, started on Levaquin as well as vancomycin. Patient ordered breathing treatment, IV steroids, magnesium for COPD. She is hemodynamically stable in terms of blood pressure otherwise. Patient will be given 30 cc/kg fluid bolus with 2 L of lactated Ringer's as well as being started on 130 cc an hour of lactated Ringer's. Patient was in agreement this plan. EKG shows sinus tachycardia with no signs of acute ischemia. Chest x-ray shows no infiltrate. Labs remarkable for leukocytosis of 12, lactic acid within normal limits. Patient is influenza A positive. On reevaluation, fever is improved but she is still tachycardic. Patient will be admitted for influenza A infection and COPD. We will continue with sepsis treatment with antibiotics at this time. Patient started on Tamiflu. She was in agreement this plan. IV steroids and breathing treatments will also be continued. Pulmonology Dr. Olmstead consulted. I spoke with the admitting provider, Dr. Aguilar of [facility] who accepted the admission. Undiagnosed new problem with uncertain prognosis? @ -No Drug Therapy requiring intensive monitoring for toxicity (Heparin, Nitro, Insulin, Cardizem)? @ -No Were any procedures done? @ -No Diagnosis/symptom? @ -Sepsis, influenza A infection, COPD Acute, or Chronic, or Acute on Chronic? @ -Acute Uncomplicated (without systemic symptoms) or Complicated (systemic symptoms)? @ -Complicated Side effects of treatment? @ -No Exacerbation, Progression, or Severe Exacerbation? @ -No Poses a threat to life or bodily function? How? (Chest pain, [place], [place], pneumonia, PE, COPD, DKA, ARF, appy, cholecystitis, CVA, Diverticulitis, Homicidal, Suicidal, threat to staff... and all critical care pts) @ -Yes - Lab Data Result diagrams: 08/23/24 16:41 08/23/24 16:41 Lab Results 08/23/24 08/23/24 08/23/24 Range/Units 16:41 16:41 16:41 WBC 12.6 H (3.8-10.6) k/uL RBC 5.37 (3.80-5.40) m/uL Hgb 16.0 (11.4-16.0) gm/dL Hct 49.1 H (34.0-46.0) % MCV 91.5 (80.0-100.0) fL MCH 29.8 (25.0-35.0) pg MCHC 32.6 (31.0-37.0) g/dL RDW 14.2 (11.5-15.5) % Plt Count 181 (150-450) k/uL MPV 7.9 Neutrophils % 84 % Lymphocytes % 6 % Monocytes % 6 % Eosinophils % 0 % Basophils % 0 % Neutrophils # 10.6 H (1.3-7.7) k/uL Lymphocytes # 0.8 L (1.0-4.8) k/uL Monocytes # 0.8 (0-1.0) k/uL Eosinophils # 0.0 (0-0.7) k/uL Basophils # 0.1 (0-0.2) k/uL Sodium 132 L (137-145) mmol/L Potassium 4.0 (3.5-5.1) mmol/L Chloride 99 (98-107) mmol/L Carbon Dioxide 26 (22-30) mmol/L Anion Gap 7 mmol/L BUN 10 (7-17) mg/dL Creatinine 0.51 L (0.52-1.04) mg/dL Est GFR (CKD-EPI)AfAm >90 (>60 ml/min/1.73 sqM) Est GFR (CKD-EPI)NonAf >90 (>60 ml/min/1.73 sqM) Glucose 91 (74-99) mg/dL Plasma Lactic Acid Sesar 0.9 (0.7-2.0) mmol/L Calcium 9.0 (8.4-10.2) mg/dL Magnesium 1.9 (1.6-2.3) mg/dL Total Bilirubin 1.6 H (0.2-1.3) mg/dL AST 23 (14-36) U/L ALT 24 (4-34) U/L Alkaline Phosphatase 95 (38-126) U/L Total Protein 6.7 (6.3-8.2) g/dL Albumin 4.0 (3.5-5.0) g/dL Influenza Type A (PCR) (Not Detectd) Influenza Type B (PCR) (Not Detectd) RSV (PCR) (Not Detectd) SARS-CoV-2 (PCR) (Not Detectd) 08/23/24 Range/Units 16:41 WBC (3.8-10.6) k/uL RBC (3.80-5.40) m/uL Hgb (11.4-16.0) gm/dL Hct (34.0-46.0) % MCV (80.0-100.0) fL MCH (25.0-35.0) pg MCHC (31.0-37.0) g/dL RDW (11.5-15.5) % Plt Count (150-450) k/uL MPV Neutrophils % % Lymphocytes % % Monocytes % % Eosinophils % % Basophils % % Neutrophils # (1.3-7.7) k/uL Lymphocytes # (1.0-4.8) k/uL Monocytes # (0-1.0) k/uL Eosinophils # (0-0.7) k/uL Basophils # (0-0.2) k/uL Sodium (137-145) mmol/L Potassium (3.5-5.1) mmol/L Chloride (98-107) mmol/L Carbon Dioxide (22-30) mmol/L Anion Gap mmol/L BUN (7-17) mg/dL Creatinine (0.52-1.04) mg/dL Est GFR (CKD-EPI)AfAm (>60 ml/min/1.73 sqM) Est GFR (CKD-EPI)NonAf (>60 ml/min/1.73 sqM) Glucose (74-99) mg/dL Plasma Lactic Acid Sesar (0.7-2.0) mmol/L Calcium (8.4-10.2) mg/dL Magnesium (1.6-2.3) mg/dL Total Bilirubin (0.2-1.3) mg/dL AST (14-36) U/L ALT (4-34) U/L Alkaline Phosphatase (38-126) U/L Total Protein (6.3-8.2) g/dL Albumin (3.5-5.0) g/dL Influenza Type A (PCR) Detected A (Not Detectd) Influenza Type B (PCR) Not Detected (Not Detectd) RSV (PCR) Not Detected (Not Detectd) SARS-CoV-2 (PCR) Not Detected (Not Detectd) - EKG Data -: EKG Interpreted by Me EKG Comments: 12-lead Electrocardiogram Interpretation Note EKG was reviewed and interpreted by myself. 12-lead ECG performed at 1622 is interpreted by me as revealing sinus tachycardia at a rate of 113 beats per minute. Left axis deviation. NV interval is 144 ms, QRS duration is 89 ms, QTc is 366 ms.. There were no ST or T wave abnormalities to suggest myocardial ischemia or injury. R wave progression across the precordium was delayed. By my interpretation this EKG is non-diagnostic for acute ischemia. Critical Care Time Critical Care Time: Yes Total Critical Care Time: 33 Disposition Clinical Impression: Sepsis, Influenza, COPD (chronic obstructive pulmonary disease) Disposition: ADMITTED IP TO THIS HOSP Condition: Serious Time of Disposition: 18:30
[2024-08-23] MEDS ORDERED: ONDANSETRON 4 MG/2 ML VIAL IVP PRN (18:35)
[2024-08-23] MEDS ORDERED: IBUPROFEN 400 MG TAB PO PRN (18:35)
[2024-08-23] MEDS ORDERED: NALOXONE 0.4 MG/ML 1 ML VIAL IV PRN (18:35)
[2024-08-23 18:50] LABS: Appearance,Urine Clear (Clear); Bilirubin,Urine Negative (Negative); Blood,Urine Negative (Negative); Color,Urine Colorless; Glucose,Urine (UA) Negative (Negative); Ketones,Urine Negative (Negative); Leukocyte Esterase,Urine Negative (Negative); Nitrite,Urine Negative (Negative); PH, Urine 5.5 (5.0-8.0); Protein,Urine Negative (Negative); Specific Gravity,Urine 1.009 (1.001-1.035); Urobilinogen,Urine <2.0 mg/dL (<2.0)
[2024-08-23] MEDS: IPRATROPIUM-ALBUTEROL 3 ML NEB INHALATION SCH (20:17)
[2024-08-23] MEDS: OSELTAMIVIR 75 MG CAP PO SCH (21:24)
[2024-08-24] MEDS: methylPREDNISolone SOD SUCCI 40 MG/ML 1 ML VIAL IV SCH (02:01)
[2024-08-24 06:11] LABS: Glucose,Whole Blood 175 mg/dL (70-110)
[2024-08-24] MEDS: VANCOMYCIN 1,250 MG in SODIUM CHLORIDE 0.9% 250 ML IVPB SCH (06:16)
--- NOTE | 2024-08-24 07:00 | XR ---
EXAMINATION TYPE: XR chest 1V portable DATE OF EXAM: 08/24/2024 6:51 AM COMPARISON: Multiple radiographs, with the most recent on 08/23/2024 TECHNIQUE: XR chest 1V portable Portable AP radiograph of the chest. CLINICAL INDICATION:Female, 54 years old with history of pneumonia; FINDINGS: Lungs/Pleura: There is no evidence of pleural effusion, focal consolidation, or pneumothorax. Backgr ound of emphysematous changes. Chronic interstitial prominence. Pulmonary vascularity: Unremarkable. Heart/mediastinum: Cardiomediastinal silhouette is enlarged and stable. Right-sided arch is redemons trated. Musculoskeletal: No acute osseous pathology. Vertebroplasty near the thoracolumbar junction is redemo nstrated. IMPRESSION: Chronic changes and cardiomegaly without acute pulmonary process. [facility], , 08/24/2024 6:58 AM
[2024-08-24 07:24] LABS: Basophils % (A) 0 %; Eosinophils % (A) 0 %; HCT 45.2 % (34.0-46.0); HGB 14.3 gm/dL (11.4-16.0); Hypochromasia Slight; Lymphocytes # (A) 0.3 k/uL (1.0-4.8); Lymphocytes % (A) 4 %; MCH 29.8 pg (25.0-35.0); MCHC 31.6 g/dL (31.0-37.0); MCV 94.4 fL (80.0-100.0); Mean Platelet Volume 7.8; Monocytes # (A) 0.3 k/uL (0-1.0); Monocytes % (A) 3 %; Neutrophils # (A) 6.8 k/uL (1.3-7.7); Neutrophils % (A) 91 %; Platelet Count 164 k/uL (150-450); RBC 4.79 m/uL (3.80-5.40); RDW 14.3 % (11.5-15.5); WBC 7.5 k/uL (3.8-10.6)
[2024-08-24 07:39] LABS: ALT 20 U/L (4-34); AST 19 U/L (14-36); African American GFR (CKD) >90 (>60 ml/min/1.73 sqM); Albumin 3.3 g/dL (3.5-5.0); Alkaline Phosphatase 85 U/L (38-126); Anion Gap 3 mmol/L; Blood Urea Nitrogen 11 mg/dL (7-17); Calcium 8.6 mg/dL (8.4-10.2); Carbon Dioxide 31 mmol/L (22-30); Chloride 103 mmol/L (98-107); Glucose 163 mg/dL (74-99); Non-African American GFR(CKD) >90 (>60 ml/min/1.73 sqM); Potassium 4.2 mmol/L (3.5-5.1); Sodium 137 mmol/L (137-145); Total Bilirubin 0.7 mg/dL (0.2-1.3); Total Protein 5.5 g/dL (6.3-8.2)
[2024-08-24] MEDS: LEVOFLOXACIN 750 MG TAB PO SCH (08:53)
--- NOTE | 2024-08-24 11:01 | P.HPIM ---
History of Present Illness This is a pleasant 54 years old female with past medical history of COPD that she follows up with Dr. King. She is on 2 L oxygen at home. Presents because of worsening dyspnea over 1 month, yesterday was more short of breath and she was very fatigued so she decided to come to the hospital. Patient also has cough with yellow phlegm for 3 days. Has mild chest pain with coughing only. She smokes cigarettes about half pack per day but she decided to quit last Wednesday. She agrees to the nicotine patch. She denies alcohol or illicit drugs. She denies diarrhea or vomiting or abdominal pain. No urinary complaint. She has mild headache but no dizziness weakness or numbness. She was mildly tachycardic on admission. Currently his breathing is better and heart rate is better within the reference range. She has a fever 103 most likely secondary to her viral infection. Blood pressure 108/66 but improved. Labs showing mild leukocytosis of 12.6 which came back to reference range at 7.5. Chest x-ray showing chronic changes without acute process. Reviewed the chest x-ray by myself and agree when it is reviewed with old chest x-ray. Sputum culture is pending. Blood cultures pending. Procalcitonin is negative at 0.04. In the emergency room patient was started on Levaquin and IV vancomycin. Review of Systems Review of systems CONSTITUTIONAL: No fever, no malaise, no fatigue. HEENT: No recent visual problems or hearing problems. Denied any sore throat. CARDIOVASCULAR: No orthopnea, PND, no palpitations, no syncope. PULMONARY: No chest wall tenderness, no hemoptysis. GASTROINTESTINAL: No diarrhea, no nausea, no vomiting, no abdominal pain. Normoactive bowel sounds. NEUROLOGICAL: No headaches, no weakness, no numbness. HEMATOLOGICAL: Denies any bleeding or petechiae. GENITOURINARY: Denies any burning micturition, frequency, or urgency. MUSCULOSKELETAL/RHEUMATOLOGICAL: Denies any joint pain, swelling, or any muscle pain. ENDOCRINE: Denies any polyuria or polydipsia. Past Medical History Past Medical History: Asthma, COPD, Diabetes Mellitus, Eye Disorder, Hyperlipidemia Additional Past Medical History / Comment(s): NIDDM type II(diet controlled following wt. loss), glaucoma bilaterally, tachycardia, AKIRA with CPAP not used the machine since she lost 80 lbs post gastric sleeve, USES O2 AT NITE ONLY. 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 HX COLITIS. History of rectal diverticulum. tachycardia, new medication metoprolol in 07/2024 History of Any Multi-Drug Resistant Organisms: None Reported Past Surgical History: Bariatric Surgery, Breast Surgery, Orthopedic Surgery Additional Past Surgical History / Comment(s): cyst removal under right breast, x 2. gastric sleeve Sx 2016., Colonoscopy 2020. Past Anesthesia/Blood Transfusion Reactions: No Reported Reaction, Motion Si ckness Past Psychological History: Anxiety, Depression, Panic Disorder Additional Psychological History / Comment(s): Pt resides with her spouse, thomas vallejo and grandson. She is normally independent. She uses no assistive device. She drives. She nebulizer and glucose monitor and oxygen prn at home. Smoking Status: Current every day smoker Past Alcohol Use History: None Reported Additional Past Alcohol Use History / Comment(s): Pt states she started smoking in 1986 -Smokes off and on. Past Drug Use History: None Reported - Past Family History Mother History Unknown: Yes Family Medical History: Cancer, COPD Additional Family Medical History / Comment(s): Breast cancer. She also has a paternal aunt with breast cancer. Father History Unknown: Yes Family Medical History: COPD, Myocardial Infarction ([place]), Vascular Disorder Additional Family Medical History / Comment(s): Father at age 64yrs. Medications and Allergies Home Medications Medication Instructions Recorded Confirmed Type Albuterol Sulfate [Ventolin HFA] 1 - 2 puff INHALATION RT-Q6H PRN 08/18/22 08/23/24 History Ipratropium/Albuter 20-100Mcg 1 puff INHALATION RT-QID PRN 08/18/22 08/23/24 History [Combivent Respimat 20-100Mcg Inhaler] Formoterol Fumarate [Perforomist] 20 mcg INHALATION RT-BID 04/17/23 08/23/24 History Cyclobenzaprine [Flexeril] 10 mg PO TID PRN 09/09/23 08/23/24 History Pregabalin [Lyrica] 150 mg PO BID 09/09/23 08/23/24 History Acetaminophen-Codeine 300-30mg 1 tab PO Q6H PRN #21 tablet 09/10/23 08/23/24 Rx [Tylenol w/codeine #3] Ipratropium-Albuterol Nebulize 3 ml INHALATION RT-QID PRN 09/17/23 08/23/24 History [Duoneb 0.5 mg-3 mg/3 ml Soln] Alendronate Sodium [Fosamax] 70 mg PO WEEKLY 08/23/24 08/23/24 History Budesonide [Pulmicort] 1 mg INHALATION RT-BID 08/23/24 08/23/24 History Budesonide-Formot 160-4.5 Mcg 2 puff INHALATION RT-BID PRN 08/23/24 08/23/24 History [Symbicort 160-4.5 Mcg Inhaler] Famotidine [Pepcid] 20 mg PO BID PRN 08/23/24 08/23/24 History Metoprolol Tartrate [Lopressor] 25 mg PO BID 08/23/24 08/23/24 History Allergies Allergy/AdvReac Type Severity Reaction Status Date / Time cephalexin [From Keflex] Allergy Severe Swelling Verified 08/23/24 16:13 of lips Penicillins Allergy Severe Swelling Verified 08/23/24 16:13 lips shellfish derived [Shellfish] Allergy Severe Anaphylaxis Verified 08/23/24 16:13 Iodinated Contrast Media Allergy Rash/Hives Verified 08/23/24 16:13 pollen extracts Allergy Dyspnea Verified 08/23/24 16:13 Physical Exam Vitals: Vital Signs Temp Pulse Pulse Resp BP BP Pulse Ox 08/24/24 08:40 73 19 08/24/24 08:18 88 08/24/24 08:08 82 97 08/24/24 07:39 97.7 F 73 19 154/87 92 L 08/24/24 01:08 98.3 F 80 17 126/79 98 08/24/24 00:49 98.4 F 84 18 111/57 98 08/23/24 21:29 87 18 114/72 08/23/24 20:29 86 08/23/24 20:17 93 08/23/24 18:26 101.1 F H 107 H 22 108/66 96 08/23/24 18:02 104 H 08/23/24 17:39 100 08/23/24 17:00 103 H 20 167/102 96 08/23/24 15:48 103.0 F H 117 H 18 144/86 90 L FiO2 08/24/24 08:40 08/24/24 08:18 08/24/24 08:08 21 08/24/24 07:39 08/24/24 01:08 08/24/24 00:49 08/23/24 21:29 08/23/24 20:29 08/23/24 20:17 08/23/24 18:26 08/23/24 18:02 08/23/24 17:39 08/23/24 17:00 08/23/24 15:48 Intake and Output 08/23/24 08/24/24 08/24/24 22:59 06:59 14:59 Other: Voiding Method Toilet Toilet # Voids 1 Weight 68.039 kg 69.5 kg GENERAL: The patient is alert and oriented x3, not in any acute distress. Well developed, well nourished. HEENT: Pupils are round and equally reacting to light. EOMI. No scleral icterus. No conjunctival pallor. Normocephalic, atraumatic. No pharyngeal erythema. No thyromegaly. CARDIOVASCULAR: S1 and S2 present. No murmurs, rubs, or gallops. -PULMONARY: Chest is clear to auscultation, bilateral scattered wheezing , no crackles. ABDOMEN: Soft, nontender, nondistended, normoactive bowel sounds. No palpable organomegaly. MUSCULOSKELETAL: No joint swelling or deformity. EXTREMITIES: No cyanosis, clubbing, or pedal edema. NEUROLOGICAL: Gross neurological examination did not reveal any focal deficits. SKIN: No rashes. no petechiae. Results CBC & Chem 7: 08/24/24 06:30 08/24/24 06:30 Labs: Abnormal Lab Results - Last 24 Hours (Table) 08/23/24 08/23/24 08/23/24 Range/Units 16:41 16:41 16:41 WBC 12.6 H (3.8-10.6) k/uL Hct 49.1 H (34.0-46.0) % Neutrophils # 10.6 H (1.3-7.7) k/uL Lymphocytes # 0.8 L (1.0-4.8) k/uL Sodium 132 L (137-145) mmol/L Carbon Dioxide (22-30) mmol/L Creatinine 0.51 L (0.52-1.04) mg/dL Glucose (74-99) mg/dL POC Glucose (mg/dL) (70-110) mg/dL Total Bilirubin 1.6 H (0.2-1.3) mg/dL Total Protein (6.3-8.2) g/dL Albumin (3.5-5.0) g/dL Influenza Type A (PCR) Detected A (Not Detectd) 08/24/24 08/24/24 08/24/24 Range/Units 06:10 06:30 06:30 WBC (3.8-10.6) k/uL Hct (34.0-46.0) % Neutrophils # (1.3-7.7) k/uL Lymphocytes # 0.3 L (1.0-4.8) k/uL Sodium (137-145) mmol/L Carbon Dioxide 31 H (22-30) mmol/L Creatinine 0.49 L (0.52-1.04) mg/dL Glucose 163 H (74-99) mg/dL POC Glucose (mg/dL) 175 H (70-110) mg/dL Total Bilirubin (0.2-1.3) mg/dL Total Protein 5.5 L (6.3-8.2) g/dL Albumin 3.3 L (3.5-5.0) g/dL Influenza Type A (PCR) (Not Detectd) Thrombosis Risk Factor Assmnt - Choose All That Apply Any of the Below Risk Factors Present?: Yes Each Factor Represents 1 point: Age 41-60 years, Obesity (BMI >25) Thrombosis Risk Factor Assessment Total Risk Factor Score: 2 Thrombosis Risk Factor Assessment Level: Low Risk Assessment and Plan Assessment: Acute COPD exacerbation, Exacerbated by influenza infection Influenza A infection Sepsis, mild present on admission secondary to viral infection which is resolved now Chronic hypoxic respiratory failure on 2 L oxygen via nasal cannula Nicotine dependence Obesity with BMI of 30.9 Plan: Continue with IV Solu-Medrol Continue with the bronchodilator. Pulmonary team consult Tamiflu. I do not think the patient needs IV vancomycin as the risk more than benefit with leukocytosis significantly improved and fever can explained by viral infection. Therefore we will discontinue IV vancomycin and continue with oral Levaquin for possible acute tracheobronchitis Follow-up blood culture and sputum culture Labs and medication were reviewed.. Continue same treatment. Continue with symptomatic treatment. Resume home medication. Monitor labs and vitals. DVT and GI prophylaxis. Further recommendations as per clinical course of the patient DVT prophylaxis: Subcutaneous heparin GI Prophylaxis: Pepcid PT/OT: Pending Prognosis is guarded
[2024-08-24 11:30] LABS: Glucose,Whole Blood 159 mg/dL (70-110)
[2024-08-24] MEDS: HEPARIN SODIUM,PORCINE 5,000 UNIT/ML 1 ML VIAL SQ SCH (12:23)
[2024-08-24] MEDS: methylPREDNISolone SOD SUCCI 125 MG/2 ML VIAL IV SCH (12:23)
--- NOTE | 2024-08-24 13:55 | P.CNPUL ---
History of Present Illness Consult date: 08/24/24 Requesting physician: Rosales E Lauren Reason for consult: dyspnea, cough, COPD Chief complaint: Shortness of breath, cough, congestion History of present illness: This is a very pleasant 54-year-old female patient with a known history of hyperlipidemia, diabetes mellitus, gastroesophageal reflux disease, previous obesity status post gastric sleeve and was able to be off CPAP for obstructive sleep apnea, chronic and ongoing tobacco dependence, chronic obstructive pulmonary disease with an FEV1 value 53% of predicted, oxygen dependent. 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 She follows with Dr. Olmstead in our office. She presented h ere yesterday to the emergency room with a 2 to 3-day history of increasing shortness of breath, cough, congestion and fever. Chest x-ray shows chronic changes and cardiomegaly without acute pulmonary process. White count 7.5. Hemoglobin 14.3. Platelets 164. Sodium 137. Potassium 4.2. Bicarb 31. BUN 11. Creatinine 0.49. Glucose 169. Procalcitonin negative at 0.04. Viral screen was positive for influenza A. In consultation on the regular medical floor. She is currently sitting up in bed. Awake and alert in no acute distress. Maintaining good O2 saturation in the 90s on 2 L/min per nasal cannula. Initially she was febrile with a temperature of 103. She is currently afebrile. Lactated Ringer's at 130 mL/h. She had been initiated on vancomycin and Levaquin. Initiated on Tamiflu. Review of Systems REVIEW OF SYSTEMS: CONSTITUTIONAL: Positive for febrile illness. Denies any recent significant weight loss or weight gain. EYES: Denies change in vision. EARS, NOSE, MOUTH, THROAT: Denies headaches, denies sore throat. CARDIOVASCULAR: Denies chest pain, palpitations or syncopal episodes. RESPIRATORY: Positive for shortness of breath, cough, congestion or hemoptysis. GASTROINTESTINAL: Denies change in appetite, denies abdominal pain GENITOURINARY: Denies hematuria, denies infections. MUSKULOSKELETAL: Denies pain, denies swelling. INTEGUMENTARY: Denies rash, denies eczema. NEUROLOGICAL: Denies recent memory loss, no recent seizure activity. PSYCHIATRIC: Denies anxiety, denies depression. HEMATOLOGIC/LYMPHATIC: Denies anemia, denies enlarged lymph nodes. Past Medical History Past Medical History: Asthma, COPD, Diabetes Mellitus, Eye Disorder, Hyperlipidemia Additional Past Medical History / Comment(s): NIDDM type II(diet controlled following wt. loss), glaucoma bilaterally, tachycardia, AKIRA with CPAP not used the machine since she lost 80 lbs post gastric sleeve, USES O2 AT NITE ONLY. 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 HX COLITIS. History of rectal diverticulum. tachycardia, new medication metoprolol in 07/2024 History of Any Multi-Drug Resistant Organisms: None Reported Past Surgical History: Bariatric Surgery, Breast Surgery, Orthopedic Surgery Additional Past Surgical History / Comment(s): cyst removal under right breast, x 2. gastric sleeve Sx 2016., Colonoscopy 2020. Past Anesthesia/Blood Transfusion Reactions: No Reported Reaction, Motion Sickness Past Psychological History: Anxiety, Depression, Panic Disorder Additional Psychological History / Comment(s): Pt resides with her spouse, daughter and grandson. She is normally independent. She uses no assistive device. She drives. She nebulizer and glucose monitor and oxygen prn at home. Smoking Status: Current every day smoker Past Alcohol Use History: None Reported Additional Past Alcohol Use History / Comment(s): Pt states she started smoking in 1986 -Smokes off and on. Past Drug Use History: None Reported - Past Family History Mother History Unknown: Yes Family Medical History: Cancer, COPD Additional Family Medical History / Comment(s): Breast cancer. She also has a paternal aunt with breast cancer. Father History Unknown: Yes Family Medical History: COPD, Myocardial Infarction ([place]), Vascular Disorder Additional Family Medical History / Comment(s): Father at age 64yrs. Medications and Allergies Home Medications Medication Instructions Recorded Confirmed Type Albuterol Sulfate [Ventolin HFA] 1 - 2 puff INHALATION RT-Q6H PRN 08/18/22 08/23/24 History Ipratropium/Albuter 20-100Mcg 1 puff INHALATION RT-QID PRN 08/18/22 08/23/24 History [Combivent Respimat 20-100Mcg Inhaler] Formoterol Fumarate [Perforomist] 20 mcg INHALATION RT-BID 04/17/23 08/23/24 History Cyclobenzaprine [Flexeril] 10 mg PO TID PRN 09/09/23 08/23/24 History Pregabalin [Lyrica] 150 mg PO BID 09/09/23 08/23/24 History Acetaminophen-Codeine 300-30mg 1 tab PO Q6H PRN #21 tablet 09/10/23 08/23/24 Rx [Tylenol w/codeine #3] Ipratropium-Albuterol Nebulize 3 ml INHALATION RT-QID PRN 09/17/23 08/23/24 History [Duoneb 0.5 mg-3 mg/3 ml Soln] Alendronate Sodium [Fosamax] 70 mg PO WEEKLY 08/23/24 08/23/24 History Budesonide [Pulmicort] 1 mg INHALATION RT-BID 08/23/24 08/23/24 History Budesonide-Formot 160-4.5 Mcg 2 puff INHALATION RT-BID PRN 08/23/24 08/23/24 History [Symbicort 160-4.5 Mcg Inhaler] Famotidine [Pepcid] 20 mg PO BID PRN 08/23/24 08/23/24 History Metoprolol Tartrate [Lopressor] 25 mg PO BID 08/23/24 08/23/24 History Allergies Allergy/AdvReac Type Severity Reaction Status Date / Time cephalexin [From Keflex] Allergy Severe Swelling Verified 08/23/24 16:13 of lips Penicillins Allergy Severe Swelling Verified 08/23/24 16:13 lips shellfish derived [Shellfish] Allergy Severe Anaphylaxis Verified 08/23/24 16:13 Iodinated Contrast Media Allergy Rash/Hives Verified 08/23/24 16:13 pollen extracts Allergy Dyspnea Verified 08/23/24 16:13 Physical Exam Vitals: Vital Signs Temp Pulse Pulse Resp BP BP Pulse Ox 08/24/24 08:40 73 19 08/24/24 08:18 88 08/24/24 08:08 82 97 08/24/24 07:39 97.7 F 73 19 154/87 92 L 08/24/24 01:08 98.3 F 80 17 126/79 98 08/24/24 00:49 98.4 F 84 18 111/57 98 08/23/24 21:29 87 18 114/72 08/23/24 20:29 86 08/23/24 20:17 93 08/23/24 18:26 101.1 F H 107 H 22 108/66 96 08/23/24 18:02 104 H 08/23/24 17:39 100 08/23/24 17:00 103 H 20 167/102 96 08/23/24 15:48 103.0 F H 117 H 18 144/86 90 L FiO2 08/24/24 08:40 08/24/24 08:18 08/24/24 08:08 21 08/24/24 07:39 08/24/24 01:08 08/24/24 00:49 08/23/24 21:29 08/23/24 20:29 08/23/24 20:17 08/23/24 18:26 08/23/24 18:02 08/23/24 17:39 08/23/24 17:00 08/23/24 15:48 Intake and Output 08/23/24 08/24/24 08/24/24 22:59 06:59 14:59 Other: Voiding Method Toilet Toilet # Voids 1 Weight 68.039 kg 69.5 kg GENERAL EXAM: Alert, pleasant 54-year-old female, on 2 L nasal cannula, comfortable in no apparent distress. HEAD: Normocephalic. EYES: Normal reaction of pupils, equal size. NOSE: Clear with pink turbinates. THROAT: No erythema or exudates. NECK: No masses, no JVD. CHEST: No chest wall deformity. LUNGS: Equal air entry with no crackles, wheeze, rhonchi or dullness. CVS: S1 and S2 normal with no audible murmur, regular rhythm. ABDOMEN: No hepatosplenomegaly, normal bowel sounds, no guarding or rigidity. SPINE: No scoliosis or deformity SKIN: No rashes CENTRAL NERVOUS SYSTEM: No focal deficits, tone is normal in all 4 extremities. EXTREMITIES: There is no peripheral edema. No clubbing, no cyanosis. Peripheral pulses are intact. Results - Laboratory Findings CBC and BMP: 08/24/24 06:30 08/24/24 06:30 Abnormal lab findings: Abnormal Labs 08/23/24 08/23/24 08/23/24 16:41 16:41 16:41 WBC 12.6 H Hct 49.1 H Neutrophils # 10.6 H Lymphocytes # 0.8 L Sodium 132 L Carbon Dioxide Creatinine 0.51 L Glucose POC Glucose (mg/dL) Total Bilirubin 1.6 H Total Protein Albumin Influenza Type A (PCR) Detected A 08/24/24 08/24/24 08/24/24 06:10 06:30 06:30 WBC Hct Neutrophils # Lymphocytes # 0.3 L Sodium Carbon Dioxide 31 H Creatinine 0.49 L Glucose 163 H POC Glucose (mg/dL) 175 H Total Bilirubin Total Protein 5.5 L Albumin 3.3 L Influenza Type A (PCR) 08/24/24 11:26 WBC Hct Neutrophils # Lymphocytes # Sodium Carbon Dioxide Creatinine Glucose POC Glucose (mg/dL) 159 H Total Bilirubin Total Protein Albumin Influenza Type A (PCR) - Diagnostic Findings Chest x-ray: image reviewed Assessment and Plan Assessment: Acute febrile illness secondary to an acute influenza A infection Acute influenza A infection Acute exacerbation of chronic obstructive pulmonary disease complicated by influenza A Acute hypoxemic respiratory failure secondary to above Chronic obstructive pulmonary disease with an FEV1 value 53% of predicted. 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 Hyperlipidemia Gastroesophageal reflux disease Anxiety/depression History of obstructive sleep apnea, not utilizing CPAP, had since lost 80 pounds History of obesity, status post gastric sleeve placement Plan: The patient was seen and evaluated Chest x-ray, labs and medications reviewed Procalcitonin negative Antibiotics discontinued Continue Tamiflu Continue DuoNeb and elations Continue Symbicort Continue IV Solu-Medrol Heparin for DVT prophylaxis Titrate down the FiO2 as tolerated Increase her activity as tolerated We will continue to follow and make further recommendations based on her clinical status I have personally seen and examined the patient, performed the documentation and the assessment and plan as written. Number of minutes spent on the visit: 20 Dictation was produced using [employer] dictation software. Please excuse any grammatical, word or spelling errors.
[2024-08-24 16:49] LABS: Glucose,Whole Blood 117 mg/dL (70-110)
[2024-08-24] MEDS: SYMBICORT 160-4.5 MCG INHALER INHALATION SCH (21:10)
[2024-08-24] MEDS: FAMOTIDINE 20 MG/2 ML VIAL IV SCH (21:29)
[2024-08-24 21:33] LABS: Glucose,Whole Blood 152 mg/dL (70-110)
[2024-08-24] MEDS: ACETAMINOPHEN TAB 325 MG TAB PO PRN (23:22)
[2024-08-25] MEDS: NICOTINE 14MG/24HR PATCH TRANSDERM SCH (10:03)
--- NOTE | 2024-08-25 10:25 | P.PN ---
Subjective This is a pleasant 54 years old female with past medical history of COPD that she follows up with Dr. King. She is on 2 L oxygen at home. Presents because of worsening dyspnea over 1 month, yesterday was more short of breath and she was very fatigued so she decided to come to the hospital. Patient also has cough with yellow phlegm for 3 days. Has mild chest pain with coughing only. She smokes cigarettes about half pack per day but she decided to quit last Wednesday. She agrees to the nicotine patch. She denies alcohol or illicit drugs. She denies diarrhea or vomiting or abdominal pain. No urinary complaint. She has mild headache but no dizziness weakness or numbness. She was mildly tachycardic on admission. Currently his breathing is better and heart rate is better within the reference range. She has a fever 103 most likely secondary to her viral infection. Blood pressure 108/66 but improved. Labs showing mild leukocytosis of 12.6 which came back to reference range at 7.5. Chest x-ray showing chronic changes without acute process. Reviewed the chest x-ray by myself and agree when it is reviewed with old chest x-ray. Sputum culture is pending. Blood cultures pending. Procalcitonin is negative at 0.04. In the emergency room patient was started on Levaquin and IV vancomycin. 08/25 Patient still feels short of breath and still wheezing. She still has exertional dyspnea when she walks to the restroom. She is coughing a lot requesting cough medicine However no chest pain no dizziness no diarrhea. She is complaining of from nicotine urgency and requesting for nicotine patch which is provided Her procalcitonin is negative and all antibiotics were discontinued. No fever or leukocytosis. Her fever on admission has subsided as of today. Blood culture and sputum culture requested and pending Patient remains on Tamiflu and Solu-Medrol 40 mg Will repeat labs in the morning Review of systems CONSTITUTIONAL: No fever, no malaise, no fatigue. HEENT: No recent visual problems or hearing problems. Denied any sore throat. CARDIOVASCULAR: No orthopnea, PND, no palpitations, no syncope. HEMATOLOGICAL: Denies any bleeding or petechiae. GENITOURINARY: Denies any burning micturition, frequency, or urgency. MUSCULOSKELETAL/RHEUMATOLOGICAL: Denies any joint pain, swelling, or any muscle pain. ENDOCRINE: Denies any polyuria or polydipsia. Active Medications Generic Name Dose Route Start Last Admin Trade Name Freq PRN Reason Stop Dose Admin Acetaminophen 650 mg 08/23/24 18:35 08/24/24 23:22 Acetaminophen Tab 325 Mg Tab PO 650 mg Q6HR PRN Administration Mild Pain or Fever > 100.5 Albuterol/Ipratropium 3 ml 08/23/24 20:00 08/25/24 08:50 Ipratropium-Albuterol 3 Ml Neb INHALATION 3 ml RT-QID CANDIDA Administration Albuterol/Ipratropium 3 ml 08/23/24 16:06 Ipratropium-Albuterol 3 Ml Neb INHALATION RT-Q2H PRN Shortness Of Breath Or Wheezing Budesonide/Formoterol Fumarate 2 puff 08/24/24 20:00 08/25/24 08:50 Symbicort 160-4.5 Mcg Inhaler INHALATION 2 puff RT-BID CANDIDA Administration Famotidine 20 mg 08/24/24 21:00 08/25/24 08:19 Famotidine 20 Mg/2 Ml Vial IV 20 mg Q12HR CANDIDA Administration Guaifenesin/Dextromethorphan 10 ml 08/25/24 12:00 Guaifenesin-Dm 100-10mg/5ml 10 Ml Cup PO 08/28/24 11:59 Q6HR CANDIDA Heparin Sodium (Porcine) 5,000 unit 08/24/24 11:15 08/25/24 08:20 Heparin Sodium,Porcine 5,000 Unit/Ml 1 Ml Vial SQ 5,000 unit Q12HR CANDIDA Administration Ibuprofen 400 mg 08/23/24 18:35 Ibuprofen 400 Mg Tab PO Q6HR PRN Mild Pain or Fever > 100.5 Methylprednisolone Sodium Succinate 60 mg 08/24/24 12:00 08/25/24 06:09 Methylprednisolone Sod Succi 125 Mg/2 Ml Vial IV 60 mg Q6HR CANDIDA Administration Miscellaneous Information 1 each 08/23/24 16:07 Pneumonia Protocol Utilized 1 Each Misc PO ONCE PRN Per Protocol Naloxone HCl 0.2 mg 08/23/24 18:35 Naloxone 0.4 Mg/Ml 1 Ml Vial IV Q2M PRN Opioid Reversal Nicotine 1 patch 08/25/24 10:00 08/25/24 10:03 Nicotine 14mg/24hr Patch TRANSDERM 1 patch DAILY CANDIDA Administration Ondansetron HCl 4 mg 08/23/24 18:35 Ondansetron 4 Mg/2 Ml Vial IVP Q8HR PRN Nausea And Vomiting Oseltamivir Phosphate 75 mg 08/23/24 21:00 08/25/24 08:19 Oseltamivir 75 Mg Cap PO 08/28/24 09:01 75 mg Q12HR CANDIDA Administration Protocol Objective - Vital Signs Vital signs: Vital Signs Temp 98.1 F 08/25/24 07:21 Pulse 100 08/25/24 09:04 Resp 20 08/25/24 07:21 BP 157/92 08/25/24 07:21 Pulse Ox 96 08/25/24 08:50 FiO2 21 08/24/24 08:08 Intake & Output 08/24/24 08/25/24 08/25/24 18:59 06:59 18:59 Intake Total 1560 Balance 1560 Intake: Intake, IV Titration 1560 Amount Lactated Ringers 1,000 ml 1560 @ 130 mls/hr IV .Q7H42M CANDIDA Rx#:[id number] Other: Voiding Method Toilet Toilet # Voids 2 - Exam GENERAL: The patient is alert and oriented x3, not in any acute distress. Well developed, well nourished. HEENT: Pupils are round and equally reacting to light. EOMI. No scleral icterus. No conjunctival pallor. Normocephalic, atraumatic. No pharyngeal erythema. No thyromegaly. CARDIOVASCULAR: S1 and S2 present. No murmurs, rubs, or gallops. -PULMONARY: Chest is clear to auscultation, bilateral expiratory wheezing , no crackles. ABDOMEN: Soft, nontender, nondistended, normoactive bowel sounds. No palpable organomegaly. MUSCULOSKELETAL: No joint swelling or deformity. EXTREMITIES: No cyanosis, clubbing, or pedal edema. NEUROLOGICAL: Gross neurological examination did not reveal any focal deficits. SKIN: No rashes. no petechiae. - Labs CBC & Chem 7: 08/24/24 06:30 08/24/24 06:30 Labs: Abnormal Lab Results - Last 24 Hours (Table) 08/24/24 08/24/24 08/24/24 Range/Units 11:26 16:48 21:32 POC Glucose (mg/dL) 159 H 117 H 152 H (70-110) mg/dL Microbiology - Last 24 Hours (Table) 08/23/24 16:41 Blood Culture - Preliminary Blood Assessment and Plan Assessment: Acute COPD exacerbation, Exacerbated by influenza infection Influenza A infection Sepsis, mild present on admission secondary to viral infection which is resolved now Chronic hypoxic respiratory failure on 2 L oxygen via nasal cannula Nicotine dependence Obesity with BMI of 30.9 Plan: Continue with IV Solu-Medrol Continue with the bronchodilator. Pulmonary team consult Tamiflu. Discontinue IV antibiotic Follow-up blood culture and sputum culture Labs and medication were reviewed.. Continue same treatment. Continue with s ymptomatic treatment. Resume home medication. Monitor labs and vitals. DVT and GI prophylaxis. Further recommendations as per clinical course of the patient DVT prophylaxis: Subcutaneous heparin GI Prophylaxis: Pepcid PT/OT: Pending Prognosis is guarded
[2024-08-25] MEDS: guaiFENesin-DM 100-10MG/5ML 10 ML CUP PO SCH (11:01)
[2024-08-25 11:29] LABS: Glucose,Whole Blood 246 mg/dL (70-110)
--- NOTE | 2024-08-25 12:40 | P.PN ---
Subjective Progress Note Date: 08/25/24 Principal diagnosis: Shortness of breath, influenza A. This is a very pleasant 54-year-old female patient with a known history of hyperlipidemia, diabetes mellitus, gastroesophageal reflux disease, previous obesity status post gastric sleeve and was able to be off CPAP for obstructive sleep apnea, chronic and ongoing tobacco dependence, chronic obstructive pulmonary disease with an FEV1 value 53% of predicted, oxygen dependent. 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 She follows with Dr. Olmstead in our office. She presented here yesterday to the emergency room with a 2 to 3-day history of increasing shortness of breath, cough, congestion and fever. Chest x-ray shows chronic changes and cardiomegaly without acute pulmonary process. White count 7.5. Hemoglobin 14.3. Platelets 164. Sodium 137. Potassium 4.2. Bicarb 31. BUN 11. Creatinine 0.49. Glucose 169. Procalcitonin negative at 0.04. Viral screen was positive for influenza A. In consultation on the regular medical floor. She is currently sitting up in bed. Awake and alert in no acute distress. Maintaining good O2 saturation in the 90s on 2 L/min per nasal cannula. Initially she was febrile with a temperature of 103. She is currently afebrile. Lactated Ringer's at 130 mL/h. She had been initiated on vancomycin and Levaquin. Initiated on Tamiflu. Progress note dated August 25, 2024. 54-year-old female well-known to me. I take care of her chronic lung disease. She has a history of COPD/asthma, hyperlipidemia, diabetes mellitus, gastroesophageal reflux disease, previous gastric sleeve procedure for obesity, sleep apnea, among other things. Unfortunately, the patient does continue to smoke cigarettes. In addition, she has a history of pulmonary artery a atresia, and hypoplastic left lung syndrome. The patient was admitted with a COPD exacerbation, likely triggered by influenza A infection. Currently, the only new lab is a glucose of 246. Objective - Vital Signs Vital signs: Vital Signs Temp 98.1 F 08/25/24 07:21 Pulse 92 08/25/24 11:42 Resp 20 08/25/24 07:21 BP 157/92 08/25/24 07:21 Pulse Ox 96 08/25/24 08:50 FiO2 08/24/24 08:08 Intake & Output 08/24/24 08/25/24 08/25/24 18:59 06:59 18:59 Intake Total 1560 Balance 1560 Intake: Intake, IV Titration 1560 Amount Lactated Ringers 1,000 ml 1560 @ 130 mls/hr IV .Q7H42M CANDIDA Rx#:[id number] Other: Voiding Method Toilet Toilet # Voids 2 - Exam No acute distress, oriented 3. Currently on 3 L of oxygen. HEENT examination is grossly unremarkable. Mucous membranes are moist. No oral lesions. Neck supple. Full range of motion. No adenopathy thyromegaly or neck vein distention. Cardiovascular examination reveals regular rhythm rate. S1-S2 normal. No S3 or S4. No discernible murmur noted. Lungs reveal scattered bilateral rhonchi and wheezes. No crackles. Breath sounds equal. Abdomen soft bowel sounds are heard. No masses or tenderness. Extremities are intact. No cyanosis clubbing or edema. Skin is without rash or lesion. Neurologic examination is brief but nonfocal. - Labs CBC & Chem 7: 08/24/24 06:30 08/24/24 06:30 Labs: Abnormal Lab Results - Last 24 Hours (Table) 08/24/24 08/24/24 08/25/24 Range/Units 16:48 21:32 11:28 POC Glucose (mg/dL) 117 H 152 H 246 H (70-110) mg/dL Microbiology - Last 24 Hours (Table) 08/23/24 16:41 Blood Culture - Preliminary Blood Assessment and Plan Assessment: Acute febrile illness secondary to an acute influenza A infection. Acute influenza A infection. Acute exacerbation of chronic obstructive pulmonary disease complicated by influenza A. Acute hypoxemic respiratory failure secondary to above. Chronic obstructive pulmonary disease with an FEV1 value 53% of predicted. Chronic and ongoing tobacco dependence. 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 Hyperlipidemia. Gastroesophageal reflux disease. Anxiety/depression. History of obstructive sleep apnea, not utilizing CPAP, had since lost 80 pounds. History of obesity, status post gastric sleeve placement. Plan: Plan dated August 25, 2024. The patient is seen today in room 469. She is on lactated Ringer's at 130 cc an hour. That will be discontinued. She continues on oxygen at 3 L. The patient is otherwise on appropriate medications. She is feeling a bit better. Will continue to follow the patient, make recommendations along the way. She continues on Tamiflu, updrafts, Symbicort, steroids. All labs, x-rays, and medications are reviewed. The patient is overall prognosis remains guarded. Unfortunately, the patient does continue to smoke cigarettes. She is counseled about the importance of smoking cessation. Dictation was produced using [employer] dictation software. Please excuse any grammatical, word or spelling errors. Time with Patient: Less than 30
[2024-08-25] MEDS ORDERED: VANCOMYCIN TROUGH DUE 1 EACH MISC MISCELLANE ONE (17:00)
[2024-08-25 17:05] LABS: Glucose,Whole Blood 166 mg/dL (70-110)
[2024-08-25 17:42] LABS: African American GFR (CKD) >90 (>60 ml/min/1.73 sqM); Non-African American GFR(CKD) >90 (>60 ml/min/1.73 sqM)
[2024-08-25 21:10] LABS: Glucose,Whole Blood 221 mg/dL (70-110)
[2024-08-26 06:12] LABS: Glucose,Whole Blood 231 mg/dL (70-110)
--- NOTE | 2024-08-26 10:50 | P.PN ---
Subjective This is a pleasant 54 years old female with past medical history of COPD that she follows up with Dr. King. She is on 2 L oxygen at home. Presents because of worsening dyspnea over 1 month, yesterday was more short of breath and she was very fatigued so she decided to come to the hospital. Patient also has cough with yellow phlegm for 3 days. Has mild chest pain with coughing only. She smokes cigarettes about half pack per day but she decided to quit last Wednesday. She agrees to the nicotine patch. She denies alcohol or illicit drugs. She denies diarrhea or vomiting or abdominal pain. No urinary complaint. She has mild headache but no dizziness weakness or numbness. She was mildly tachycardic on admission. Currently his breathing is better and heart rate is better within the reference range. She has a fever 103 most likely secondary to her viral infection. Blood pressure 108/66 but improved. Labs showing mild leukocytosis of 12.6 which came back to reference range at 7.5. Chest x-ray showing chronic changes without acute process. Reviewed the chest x-ray by myself and agree when it is reviewed with old chest x-ray. Sputum culture is pending. Blood cultures pending. Procalcitonin is negative at 0.04. In the emergency room patient was started on Levaquin and IV vancomycin. 08/25 Patient still feels short of breath and still wheezing. She still has exertional dyspnea when she walks to the restroom. She is coughing a lot requesting cough medicine However no chest pain no dizziness no diarrhea. She is complaining of from nicotine urgency and requesting for nicotine patch which is provided Her procalcitonin is negative and all antibiotics were discontinued. No fever or leukocytosis. Her fever on admission has subsided as of today. Blood culture and sputum culture requested and pending Patient remains on Tamiflu and Solu-Medrol 40 mg Will repeat labs in the morning 08/26 Patient states that breathing is improving although she still is mildly improved. Cough is much better Currently on 3 L oxygen via nasal cannula compared to 2 liter at home She still have some wheezing. She remains on steroids but switch to prednisone 40 mg, also she is on Tamiflu. While Levaquin was discontinued Objective - Vital Signs Vital signs: Vital Signs Temp 98.9 F 08/26/24 07:44 Pulse 82 08/26/24 08:59 Resp 18 08/26/24 07:44 BP 161/92 08/26/24 07:44 Pulse Ox 95 08/26/24 07:44 FiO2 21 08/24/24 08:08 Intake & Output 08/25/24 08/26/24 08/26/24 18:59 06:59 18:59 Intake Total 1500 Balance 1500 Weight 69.5 kg Intake: Intake, IV Titration 520 Amount Lactated Ringers 1,000 ml 520 @ 130 mls/hr IV .Q7H42M [facility] Rx#:[id number] Oral 980 Other: # Voids 3 2 # Bowel Movements 1 - Exam GENERAL: The patient is alert and oriented x3, not in any acute distress. Well developed, well nourished. HEENT: Pupils are round and equally reacting to light. EOMI. No scleral icterus. No conjunctival pallor. Normocephalic, atraumatic. No pharyngeal erythema. No thyromegaly. CARDIOVASCULAR: S1 and S2 present. No murmurs, rubs, or gallops. -PULMONARY: Chest is clear to auscultation, bilateral expiratory wheezing , no crackles. ABDOMEN: Soft, nontender, nondistended, normoactive bowel sounds. No palpable organomegaly. MUSCULOSKELETAL: No joint swelling or deformity. EXTREMITIES: No cyanosis, clubbing, or pedal edema. NEUROLOGICAL: Gross neurological examination did not reveal any focal deficits. SKIN: No rashes. no petechiae. - Labs CBC & Chem 7: 08/24/24 06:30 08/25/24 17:19 Labs: Abnormal Lab Results - Last 24 Hours (Table) 08/25/24 08/25/24 08/25/24 Range/Units 11:28 17:03 21:01 POC Glucose (mg/dL) 246 H 166 H 221 H (70-110) mg/dL 08/26/24 Range/Units 06:07 POC Glucose (mg/dL) 231 H (70-110) mg/dL Microbiology - Last 24 Hours (Table) 08/25/24 09:06 Gram Stain - Preliminary Sputum 08/23/24 16:41 Blood Culture - Preliminary Blood 08/24/24 13:18 Nasal Screen MRSA/MSSA - Final Nasopharyngeal Swab Assessment and Plan Assessment: Acute COPD exacerbation, Exacerbated by influenza infection Influenza A infection Sepsis, mild present on admission secondary to viral infection which is resolved now Chronic hypoxic respiratory failure on 2 L oxygen via nasal cannula Nicotine dependence Obesity with BMI of 30.9 Plan: Continue with oral prednisone Continue with the bronchodilator. Pulmonary team consult Tamiflu. Discontinue IV antibiotic Follow-up blood culture and sputum culture Labs and medication were reviewed.. Continue same treatment. Continue with symptomatic treatment. Resume home medication. Monitor labs and vitals. DVT and GI prophylaxis. Further recommendations as per clinical course of the patient DVT prophylaxis: Subcutaneous heparin GI Prophylaxis: Pepcid PT/OT: Pending Prognosis is guarded
[2024-08-26 11:32] LABS: Glucose,Whole Blood 169 mg/dL (70-110)
--- NOTE | 2024-08-26 12:07 | P.PN ---
Subjective Progress Note Date: 08/26/24 This is a very pleasant 54-year-old female patient with a known history of hyperlipidemia, diabetes mellitus, gastroesophageal reflux disease, previous obesity status post gastric sleeve and was able to be off CPAP for obstructive sleep apnea, chronic and ongoing tobacco dependence, chronic obstructive pu lmonary disease with an FEV1 value 53% of predicted, oxygen dependent. 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 She follows with Dr. Olmstead in our office. She presented here yesterday to the emergency room with a 2 to 3-day history of increasing shortness of breath, cough, congestion and fever. Chest x-ray shows chronic changes and cardiomegaly without acute pulmonary process. White count 7.5. Hemoglobin 14.3. Platelets 164. Sodium 137. Potassium 4.2. Bicarb 31. BUN 11. Creatinine 0.49. Glucose 169. Procalcitonin negative at 0.04. Viral screen was positive for influenza A. In consultation on the regular medical floor. She is currently sitting up in bed. Awake and alert in no acute distress. Maintaining good O2 saturation in the 90s on 2 L/min per nasal cannula. Initially she was febrile with a temperature of 103. She is currently afebrile. Lactated Ringer's at 130 mL/h. She had been initiated on vancomycin and Levaquin. Initiated on Tamiflu. Progress note dated August 25, 2024. 54-year-old female well-known to me. I take care of her chronic lung disease. She has a history of COPD/asthma, hyperlipidemia, diabetes mellitus, gastroesophageal reflux disease, previous gastric sleeve procedure for obesity, sleep apnea, among other things. Unfortunately, the patient does continue to smoke cigarettes. In addition, she has a history of pulmonary artery a atresia, and hypoplastic left lung syndrome. The patient was admitted with a COPD exacerbation, likely triggered by influenza A infection. Currently, the only new lab is a glucose of 246. The patient is seen today August 26, 2024 in follow-up on the regular medical floor. She is currently sitting up in bed. Awake and alert in no acute distres s. Maintaining O2 saturations in the 90s on 3 L/min per nasal cannula. She denies any worsening shortness of breath, cough or congestion. Blood and sputum cultures revealed no growth thus far. Glucose 169. She remains on DuoNeb inhalations, Symbicort, Solu-Medrol. NicoDerm patch in place. Continued on Tamiflu. Heparin for DVT prophylaxis. Objective - Vital Signs Vital signs: Vital Signs Temp 98.9 F 08/26/24 07:44 Pulse 82 08/26/24 08:59 Resp 18 08/26/24 07:44 BP 161/92 08/26/24 07:44 Pulse Ox 95 08/26/24 07:44 FiO2 21 08/24/24 08:08 Intake & Output 08/25/24 08/26/24 08/26/24 18:59 06:59 18:59 Intake Total 1500 Balance 1500 Weight 69.5 kg Intake: Intake, IV Titration 520 Amount Lactated Ringers 1,000 ml 520 @ 130 mls/hr IV .Q7H42M [facility] Rx#:[id number] Oral 980 Other: # Voids 3 2 # Bowel Movements 1 - Exam GENERAL EXAM: Alert, active, pleasant 54-year-old female, on 3 L nasal cannula, comfortable in no apparent distress. HEAD: Normocephalic. EYES: Normal reaction of pupils, equal size. NOSE: Clear with pink turbinates. THROAT: No erythema or exudates. NECK: No masses, no JVD. CHEST: No chest wall deformity. LUNGS: Equal air entry with few scattered rhonchi. CVS: S1 and S2 normal with no audible murmur, regular rhythm. ABDOMEN: No hepatosplenomegaly, normal bowel sounds, no guarding or rigidity. SPINE: No scoliosis or deformity SKIN: No rashes CENTRAL NERVOUS SYSTEM: No focal deficits, tone is normal in all 4 extremities. EXTREMITIES: There is no peripheral edema. No clubbing, no cyanosis. Peripheral pulses are intact. - Labs CBC & Chem 7: 08/24/24 06:30 08/25/24 17:19 Labs: Abnormal Lab Results - Last 24 Hours (Table) 08/25/24 08/25/24 08/26/24 Range/Units 17:03 21:01 06:07 POC Glucose (mg/dL) 166 H 221 H 231 H (70-110) mg/dL 08/26/24 Range/Units 11:31 POC Glucose (mg/dL) 169 H (70-110) mg/dL Microbiology - Last 24 Hours (Table) 08/25/24 09:06 Gram Stain - Preliminary Sputum 08/23/24 16:41 Blood Culture - Preliminary Blood 08/24/24 13:18 Nasal Screen MRSA/MSSA - Final Nasopharyngeal Swab Assessment and Plan Assessment: Acute febrile illness secondary to an acute influenza A infection Acute influenza A infection Acute exacerbation of chronic obstructive pulmonary disease complicated by influenza A Acute hypoxemic respiratory failure secondary to above Chronic obstructive pulmonary disease with an FEV1 value 53% of predicted. 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 Hyperlipidemia Gastroesophageal reflux disease Anxiety/depression History of obstructive sleep apnea, not utilizing CPAP, had since lost 80 pounds History of obesity, status post gastric sleeve placement Plan: The patient was seen and evaluated Labs and medications reviewed Continue Tamiflu Continue DuoNeb inhalations Continue Symbicort Discontinue Solu-Medrol Initiate a prednisone taper Heparin for DVT prophylaxis Titrate down the FiO2 as tolerated Increase her activity as tolerated Educated regarding smoking cessation NicoDerm patch in place We will continue to follow I have personally seen and examined the patient, performed the documentation and the assessment and plan as written. Number of minutes spent on the visit: 10 Dictation was produced using [employer] dictation software. Please excuse any grammatical, word or spelling errors.
[2024-08-26 16:44] LABS: Glucose,Whole Blood 157 mg/dL (70-110)
[2024-08-26] MEDS: FAMOTIDINE 20 MG TAB PO SCH (21:02)
[2024-08-26 22:46] LABS: Glucose,Whole Blood 123 mg/dL (70-110)
[2024-08-27 06:22] LABS: Glucose,Whole Blood 99 mg/dL (70-110)
[2024-08-27] MEDS: predniSONE 20 MG TAB PO SCH (09:27)
--- NOTE | 2024-08-27 11:08 | P.PN ---
Subjective Progress Note Date: 08/27/24 This is a very pleasant 54-year-old female patient with a known history of hyperlipidemia, diabetes mellitus, gastroesophageal reflux disease, previous obesity status post gastric sleeve and was able to be off CPAP for obstructive sleep apnea, chronic and ongoing tobacco dependence, chronic obstructive pu lmonary disease with an FEV1 value 53% of predicted, oxygen dependent. 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 She follows with Dr. Olmstead in our office. She presented here yesterday to the emergency room with a 2 to 3-day history of increasing shortness of breath, cough, congestion and fever. Chest x-ray shows chronic changes and cardiomegaly without acute pulmonary process. White count 7.5. Hemoglobin 14.3. Platelets 164. Sodium 137. Potassium 4.2. Bicarb 31. BUN 11. Creatinine 0.49. Glucose 169. Procalcitonin negative at 0.04. Viral screen was positive for influenza A. In consultation on the regular medical floor. She is currently sitting up in bed. Awake and alert in no acute distress. Maintaining good O2 saturation in the 90s on 2 L/min per nasal cannula. Initially she was febrile with a temperature of 103. She is currently afebrile. Lactated Ringer's at 130 mL/h. She had been initiated on vancomycin and Levaquin. Initiated on Tamiflu. Progress note dated August 25, 2024. 54-year-old female well-known to me. I take care of her chronic lung disease. She has a history of COPD/asthma, hyperlipidemia, diabetes mellitus, gastroesophageal reflux disease, previous gastric sleeve procedure for obesity, sleep apnea, among other things. Unfortunately, the patient does continue to smoke cigarettes. In addition, she has a history of pulmonary artery a atresia, and hypoplastic left lung syndrome. The patient was admitted with a COPD exacerbation, likely triggered by influenza A infection. Currently, the only new lab is a glucose of 246. The patient is seen today August 26, 2024 in follow-up on the regular medical floor. She is currently sitting up in bed. Awake and alert in no acute distres s. Maintaining O2 saturations in the 90s on 3 L/min per nasal cannula. She denies any worsening shortness of breath, cough or congestion. Blood and sputum cultures revealed no growth thus far. Glucose 169. She remains on DuoNeb inhalations, Symbicort, Solu-Medrol. NicoDerm patch in place. Continued on Tamiflu. Heparin for DVT prophylaxis. The patient is seen today August 27, 2024 in follow-up on the regular medical floor. She is resting comfortably in bed. Awake and alert in no acute d istress. She has been afebrile. Hemodynamically stable. Maintaining O2 saturations in the 90s on 3 L/min per nasal cannula. No IV fluids. She remains on Tamiflu. Continued on DuoNeb inhalations, Symbicort, prednisone taper. NicoDerm patch in place. Heparin for DVT prophylaxis. Pepcid for GI prophylaxis. Glucose 99. Objective - Vital Signs Vital signs: Vital Signs Temp 98.6 F 08/27/24 07:31 Pulse 80 08/27/24 08:42 Resp 18 08/27/24 07:31 BP 143/89 08/27/24 07:31 Pulse Ox 98 08/27/24 07:31 FiO2 21 08/24/24 08:08 Intake & Output 08/26/24 08/27/24 08/27/24 18:59 06:59 18:59 Weight 71 kg Other: # Voids 3 3 - Exam GENERAL EXAM: Alert, 54-year-old female, on 3 L nasal cannula, in no apparent distress. HEAD: Normocephalic. EYES: Normal reaction of pupils, equal size. NOSE: Clear with pink turbinates. THROAT: No erythema or exudates. NECK: No masses, no JVD. CHEST: No chest wall deformity. LUNGS: Equal air entry with few scattered rhonchi. CVS: S1 and S2 normal with no audible murmur, regular rhythm. ABDOMEN: No hepatosplenomegaly, normal bowel sounds, no guarding or rigidity. SPINE: No scoliosis or deformity SKIN: No rashes CENTRAL NERVOUS SYSTEM: No focal deficits, tone is normal in all 4 extremities. EXTREMITIES: There is no peripheral edema. No clubbing, no cyanosis. Peripheral pulses are intact. - Labs CBC & Chem 7: 08/24/24 06:30 08/25/24 17:19 Labs: Abnormal Lab Results - Last 24 Hours (Table) 08/26/24 08/26/24 08/26/24 Range/Units 11:31 16:42 22:44 POC Glucose (mg/dL) 169 H 157 H 123 H (70-110) mg/dL Microbiology - Last 24 Hours (Table) 08/25/24 09:06 Gram Stain - Final Sputum Sputum Culture - Final 08/23/24 16:41 Blood Culture - Preliminary Blood Assessment and Plan Assessment: Acute febrile illness secondary to an acute influenza A infection Acute influenza A infection Acute exacerbation of chronic obstructive pulmonary disease complicated by influenza A Acute hypoxemic respiratory failure secondary to above Chronic obstructive pulmonary disease with an FEV1 value 53% of predicted. 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 Hyperlipidemia Gastroesophageal reflux disease Anxiety/depression History of obstructive sleep apnea, not utilizing CPAP, had since lost 80 pounds History of obesity, status post gastric sleeve placement Plan: The patient was seen and evaluated Medications reviewed Continue Tamiflu Continue DuoNeb inhalations, Symbicort Continue a prednisone taper Heparin for DVT prophylaxis Titrate down the FiO2 as tolerated Increase her activity as tolerated NicoDerm patch in place We will continue to follow I have personally seen and examined the patient, performed the documentation and the assessment and plan as written. Number of minutes spent on the visit: 10 Dictation was produced using [employer] dictation software. Please excuse any grammatical, word or spelling errors.
[2024-08-27 11:59] LABS: Glucose,Whole Blood 114 mg/dL (70-110)
--- NOTE | 2024-08-27 12:32 | P.PN ---
Subjective This is a pleasant 54 years old female with past medical history of COPD that she follows up with Dr. King. She is on 2 L oxygen at home. Presents because of worsening dyspnea over 1 month, yesterday was more short of breath and she was very fatigued so she decided to come to the hospital. Patient also has cough with yellow phlegm for 3 days. Has mild chest pain with coughing only. She smokes cigarettes about half pack per day but she decided to quit last Wednesday. She agrees to the nicotine patch. She denies alcohol or illicit drugs. She denies diarrhea or vomiting or abdominal pain. No urinary complaint. She has mild headache but no dizziness weakness or numbness. She was mildly tachycardic on admission. Currently his breathing is better and heart rate is better within the reference range. She has a fever 103 most likely secondary to her viral infection. Blood pressure 108/66 but improved. Labs showing mild leukocytosis of 12.6 which came back to reference range at 7.5. Chest x-ray showing chronic changes without acute process. Reviewed the chest x-ray by myself and agree when it is reviewed with old chest x-ray. Sputum culture is pending. Blood cultures pending. Procalcitonin is negative at 0.04. In the emergency room patient was started on Levaquin and IV vancomycin. 08/25 Patient still feels short of breath and still wheezing. She still has exertional dyspnea when she walks to the restroom. She is coughing a lot requesting cough medicine However no chest pain no dizziness no diarrhea. She is complaining of from nicotine urgency and requesting for nicotine patch which is provided Her procalcitonin is negative and all antibiotics were discontinued. No fever or leukocytosis. Her fever on admission has subsided as of today. Blood culture and sputum culture requested and pending Patient remains on Tamiflu and Solu-Medrol 40 mg Will repeat labs in the morning 08/26 Patient states that breathing is improving although she still is mildly improved. Cough is much better Currently on 3 L oxygen via nasal cannula compared to 2 liter at home She still have some wheezing. She remains on steroids but switch to prednisone 40 mg, also she is on Tamiflu. While Levaquin was discontinued 08/27 Breathing improving slowly and gradually Still has scattered wheezing Steroids switched to oral prednisone 40 daily Continue with Tamiflu Currently off IV antibiotics Objective - Vital Signs Vital signs: Vital Signs Temp 98.6 F 08/27/24 07:31 Pulse 81 08/27/24 12:21 Resp 18 08/27/24 07:31 BP 143/89 08/27/24 07:31 Pulse Ox 98 08/27/24 07:31 FiO2 21 08/24/24 08:08 Intake & Output 08/26/24 08/27/24 08/27/24 18:59 06:59 18:59 Weight 71 kg Other: # Voids 3 3 - Exam GENERAL: The patient is alert and oriented x3, not in any acute distress. Well developed, well nourished. HEENT: Pupils are round and equally reacting to light. EOMI. No scleral icterus. No conjunctival pallor. Normocephalic, atraumatic. No pharyngeal erythema. No thyromegaly. CARDIOVASCULAR: S1 and S2 present. No murmurs, rubs, or gallops. -PULMONARY: Chest is clear to auscultation, bilateral expiratory wheezing , no crackles. ABDOMEN: Soft, nontender, nondistended, normoactive bowel sounds. No palpable organomegaly. MUSCULOSKELETAL: No joint swelling or deformity. EXTREMITIES: No cyanosis, clubbing, or pedal edema. NEUROLOGICAL: Gross neurological examination did not reveal any focal deficits. SKIN: No rashes. no petechiae. - Labs CBC & Chem 7: 08/24/24 06:30 08/25/24 17:19 Labs: Abnormal Lab Results - Last 24 Hours (Table) 08/26/24 08/26/24 08/27/24 Range/Units 16:42 22:44 11:58 POC Glucose (mg/dL) 157 H 123 H 114 H (70-110) mg/dL Microbiology - Last 24 Hours (Table) 08/25/24 09:06 Gram Stain - Final Sputum Sputum Culture - Final 08/23/24 16:41 Blood Culture - Preliminary Blood Assessment and Plan Assessment: Acute COPD exacerbation, Exacerbated by influenza infection Influenza A infection Sepsis, mild present on admission secondary to viral infection which is resolved now Chronic hypoxic respiratory failure on 2 L oxygen via nasal cannula Nicotine dependence Obesity with BMI of 30.9 Plan: Continue with oral prednisone Continue with the bronchodilator. Pulmonary team consult Tamiflu. Discontinue IV antibiotic Follow-up blood culture and sputum culture Labs and medication were reviewed.. Continue same treatment. Continue with symptomatic treatment. Resume home medication. Monitor labs and vitals. DVT and GI prophylaxis. Further recommendations as per clinical course of the patient DVT prophylaxis: Subcutaneous heparin GI Prophylaxis: Pepcid PT/OT: Pending Prognosis is guarded
[2024-08-27] MEDS: NYSTATIN 100,000 UNIT/ML SUSP 500,000 UNIT/5 ML CUP PO SCH (13:32)
[2024-08-27 16:44] LABS: Glucose,Whole Blood 171 mg/dL (70-110)
[2024-08-27 20:57] LABS: Glucose,Whole Blood 109 mg/dL (70-110)
[2024-08-28 06:06] LABS: Glucose,Whole Blood 94 mg/dL (70-110)
[2024-08-28 12:30] VITALS: RESP 18
[2024-08-28 16:20] VITALS: BP 151/73; TEMP 98.2
[2024-08-28 16:28] VITALS: PULSE 82
--- NOTE | 2024-08-28 19:02 | P.PN ---
Subjective Progress Note Date: 08/28/24 This is a very pleasant 54-year-old female patient with a known history of hyperlipidemia, diabetes mellitus, gastroesophageal reflux disease, previous obesity status post gastric sleeve and was able to be off CPAP for obstructive sleep apnea, chronic and ongoing tobacco dependence, chronic obstructive p ulmonary disease with an FEV1 value 53% of predicted, oxygen dependent. 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 She follows with Dr. Olmstead in our office. She presented here yesterday to the emergency room with a 2 to 3-day history of increasing shortness of breath, cough, congestion and fever. Chest x-ray shows chronic changes and cardiomegaly without acute pulmonary process. White count 7.5. Hemoglobin 14.3. Platelets 164. Sodium 137. Potassium 4.2. Bicarb 31. BUN 11. Creatinine 0.49. Glucose 169. Procalcitonin negative at 0.04. Viral screen was positive for influenza A. In consultation on the regular medical floor. She is currently sitting up in bed. Awake and alert in no acute distress. Maintaining good O2 saturation in the 90s on 2 L/min per nasal cannula. Initially she was febrile with a temperature of 103. She is currently afebrile. Lactated Ringer's at 130 mL/h. She had been initiated on vancomycin and Levaquin. Initiated on Tamiflu. Progress note dated August 25, 2024. 54-year-old female well-known to me. I take care of her chronic lung disease. She has a history of COPD/asthma, hyperlipidemia, diabetes mellitus, gastroesophageal reflux disease, previous gastric sleeve procedure for obesity, sleep apnea, among other things. Unfortunately, the patient does continue to smoke cigarettes. In addition, she has a history of pulmonary artery a atresia, and hypoplastic left lung syndrome. The patient was admitted with a COPD exacerbation, likely triggered by influenza A infection. Currently, the only new lab is a glucose of 246. The patient is seen today August 26, 2024 in follow-up on the regular medical floor. She is currently sitting up in bed. Awake and alert in no acute distre ss. Maintaining O2 saturations in the 90s on 3 L/min per nasal cannula. She denies any worsening shortness of breath, cough or congestion. Blood and sputum cultures revealed no growth thus far. Glucose 169. She remains on DuoNeb inhalations, Symbicort, Solu-Medrol. NicoDerm patch in place. Continued on Tamiflu. Heparin for DVT prophylaxis. The patient is seen today August 27, 2024 in follow-up on the regular medical floor. She is resting comfortably in bed. Awake and alert in no acute distress. She has been afebrile. Hemodynamically stable. Maintaining O2 saturations in the 90s on 3 L/min per nasal cannula. No IV fluids. She remains on Tamiflu. Continued on DuoNeb inhalations, Symbicort, prednisone taper. NicoDerm patch in place. Heparin for DVT prophylaxis. Pepcid for GI prophylaxis. Glucose 99. On 08/28/2024, patient is being seen for a follow-up. 54-year-old female patient with an acute influenza A infection and secondary COPD exacerbation. Baseline FEV1 is in the order of 53% predicted and she is a chronic smoker. Patient has also obstructive sleep apnea and she has not been compliant to CPAP therapy. Doing well. No new complaints. She was treated with Tamiflu and she is currently on a prednisone burst taper. Most recent chest x-ray from 08/24/2024 s howed cardiomegaly without any acute cardiopulmonary process. No new labs are available from today. The patient completed the course of Tamiflu. Currently off antibiotics. Breathing is stable for now. She remains on O2 at 2 L/min nasal cannula. No new complaints otherwise for now. Objective - Vital Signs Vital signs: Vital Signs Temp 97.9 F 08/28/24 08:00 Pulse 82 08/28/24 12:39 Resp 18 08/28/24 12:39 BP 160/79 08/28/24 08:00 Pulse Ox 99 08/28/24 12:23 FiO2 21 08/24/24 08:08 Intake & Output 08/27/24 08/28/24 08/28/24 18:59 06:59 18:59 Intake Total 200 Balance 200 Weight 70.5 kg Intake: Oral 200 Other: Voiding Method Toilet # Voids 3 4 - Exam GENERAL EXAM: Alert, 54-year-old female, on 2 L nasal cannula, in no apparent distress. HEAD: Normocephalic. EYES: Normal reaction of pupils, equal size. NOSE: Clear with pink turbinates. THROAT: No erythema or exudates. NECK: No masses, no JVD. CHEST: No chest wall deformity. LUNGS: Equal air entry with few scattered rhonchi. CVS: S1 and S2 normal with no audible murmur, regular rhythm. ABDOMEN: No hepatosplenomegaly, normal bowel sounds, no guarding or rigidity. SPINE: No scoliosis or deformity SKIN: No rashes CENTRAL NERVOUS SYSTEM: No focal deficits, tone is normal in all 4 extremities. EXTREMITIES: There is no peripheral edema. No clubbing, no cyanosis. Peripheral pulses are intact. - Labs CBC & Chem 7: 08/24/24 06:30 08/25/24 17:19 Labs: Abnormal Lab Results - Last 24 Hours (Table) 08/27/24 Range/Units 16:42 POC Glucose (mg/dL) 171 H (70-110) mg/dL Microbiology - Last 24 Hours (Table) 08/25/24 09:06 Gram Stain - Final Sputum Sputum Culture - Final Assessment and Plan Plan: Acute febrile illness secondary to an acute influenza A infection Acute influenza A infection Acute exacerbation of chronic obstructive pulmonary disease complicated by influenza A Acute hypoxemic respiratory failure secondary to above Chronic obstructive pulmonary disease with an FEV1 value 53% of predicted. 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
== END 2024-08-28 18:19 | disposition home health service (06) | DRG 871 ==
LOC: EC 15:39 → 3SCARD 18:36 → 4SSUR 23:00
PROVIDERS: ADMIT Internal Medicine; ATTEND Internal Medicine
DX: A41.89 Other specified sepsis (principal); J96.21 Acute and chronic respiratory failure with hypoxia; Q33.6 Congenital hypoplasia and dysplasia of lung; Q25.5 Atresia of pulmonary artery; J44.1 Chronic obstructive pulmonary disease with (acute) exacerbation; E11.9 Type 2 diabetes mellitus without complications; Z68.31 Body mass index [BMI] 31.0-31.9, adult; F32.A Depression, unspecified; B37.0 Candidal stomatitis; Z99.81 Dependence on supplemental oxygen; Z68.30 Body mass index [BMI] 30.0-30.9, adult; E66.9 Obesity, unspecified; J10.1 Influenza due to other identified influenza virus with other respiratory manifestations; F17.210 Nicotine dependence, cigarettes, uncomplicated; G47.33 Obstructive sleep apnea (adult) (pediatric); I51.7 Cardiomegaly; E78.5 Hyperlipidemia, unspecified; F41.9 Anxiety disorder, unspecified; K21.9 Gastro-esophageal reflux disease without esophagitis; Z91.198 Patient's noncompliance with other medical treatment and regimen for other reason; Z98.84 Bariatric surgery status; Z79.51 Long term (current) use of inhaled steroids; Z79.899 Other long term (current) drug therapy; Z79.83 Long term (current) use of bisphosphonates; Z71.6 Tobacco abuse counseling
CPT/HCPCS: 36415; 71045; 71046; 80053; 81003; 82565; 83605; 83735; 84145; 85025; 87040; 87070; 87205; 87449; 87636; 87651; 93005; 94640; 94760; 96361; 96365; 96366; 96367; 96368; 96375; 99291

== ENCOUNTER → 2024-08-31 | Outpatient (CLI) | payer OTHER ==
[2024-08-31 19:20] LABS: ALT 78 U/L (8-44); AST 39 U/L (13-35); Albumin 4.1 g/dL (3.8-4.9); Albumin/Globulin Ratio 1.86 Ratio (1.60-3.17); Alkaline Phosphatase 87 U/L (41-126); BUN/Creat Ratio 24.83 Ratio (12.00-20.00); Blood Urea Nitrogen 14.9 mg/dL (9.0-27.0); Calcium 9.2 mg/dL (8.7-10.3); Carbon Dioxide 26.6 mmol/L (21.6-31.8); Chloride 104 mmol/L (96-109); Globulin 2.2 g/dL (1.6-3.3); Glucose 118 mg/dL (70-110); Potassium 3.9 mmol/L (3.5-5.5); Sodium 142 mmol/L (135-145); Total Bilirubin 0.8 mg/dL (0.3-1.2); Total Protein 6.3 g/dL (6.2-8.2)
[2024-08-31 19:32] LABS: Basophils # (M) 0 X 10*3/uL (0.00-0.10); Eosinophils # (M) 0 X 10*3/uL (0.04-0.35); HCT 49.2 % (37.2-46.3); HGB 15.6 g/dL (12.0-15.0); Lymphocytes # (M) 2.95 X 10*3/uL (0.90-5.00); MCH 29.8 pg (27.0-32.0); MCHC 31.7 g/dL (32.0-37.0); MCV 94.1 FL (80.0-97.0); Mean Platelet Volume 10.2 FL (9.5-12.2); Metamyelocytes % 1 % (0-0); Monocytes # (M) 1.21 X 10*3/uL (0.20-1.00); Myelocytes % 1 % (0-0); NRBC Per 100 WBC 0 X 10*3/uL (0.00-0.01); Neutrophils # (M) 12.82 X 10*3/uL (1.80-7.70); Neutrophils % (M) 74 %; Platelet Count 258 X 10*3/uL (140-440); RBC 5.23 X 10*6/uL (4.10-5.20); RDW 14.7 % (11.5-14.5); WBC 17.33 X 10*3/uL (4.50-10.00)
== END | disposition home or self-care (01) ==
LOC: LABWHC1 12:05
PROVIDERS: ATTEND Family Medicine
DX: E78.5 Hyperlipidemia, unspecified (principal)
CPT/HCPCS: 36415; 80053; 85025

== ENCOUNTER → 2024-09-05 | Outpatient (CLI) | payer OTHER ==
[2024-09-05 10:14] LABS: ALT 45 U/L (4-34); AST 22 U/L (14-36)
[2024-09-05 15:41] LABS: Hepatitis A Antibody IgM Nonreactive (Nonreactive); Hepatitis C IgG Antibody Nonreactive (Nonreactive)
[2024-09-05 15:42] LABS: Hepatitis B Core IgM Nonreactive (Nonreactive); Hepatitis B Surface Antigen Nonreactive (Nonreactive)
== END | disposition home or self-care (01) ==
LOC: LABWHC1 09:00
PROVIDERS: ATTEND Family Medicine
DX: R74.8 Abnormal levels of other serum enzymes (principal)
CPT/HCPCS: 36415; 80074; 84450; 84460

== ENCOUNTER 2024-09-29 21:10 | Observation (INO) | payer OTHER ==
--- NOTE | 2024-09-29 21:43 | ED ---
General Adult HPI - General Chief complaint: Weakness Stated complaint: BRADY Time Seen by Provider: 09/29/24 21:15 Source: patient Mode of arrival: wheelchair Limitations: no limitations - History of Present Illness Initial comments: This patient is 54-year-old woman with history of underlying COPD who presents to have evaluation for shortness of breath. Patient states that her breathing has not been right going on for about a month. She states that at that time she had developed cough, wheezing, shortness of breath, was seen by the physician and diagnosed with influenza A. She states that she had about 3 weeks where her breathing was off and then it improved but then last week she began more shortness of breath and went to the clinic. She states she was given course of doxycycline and prednisone. She has finished the prednisone but has not noted improvement. The patient of her chills. She has noted wheezing, shortness of breath, cough with some occasional white to yellow sputum. No change in urination or bowel movements no leg pain or swelling. Onset/Timin -: month(s) Severity scale (1-10): 0 Consistency: constant Improves with: none Worsens with: none Associated Symptoms: cough, shortness of breath Treatments Prior to Arrival: other - Related Data Home Medications Medication Instructions Recorded Confirmed Albuterol Sulfate [Ventolin HFA] 1 - 2 puff INHALATION RT-Q6H PRN 08/18/22 08/23/24 Ipratropium/Albuter 20-100Mcg 1 puff INHALATION RT-QID PRN 08/18/22 08/23/24 [Combivent Respimat 20-100Mcg Inhaler] Formoterol Fumarate [Perforomist] 20 mcg INHALATION RT-BID 04/17/23 08/23/24 Cyclobenzaprine [Flexeril] 10 mg PO TID PRN 09/09/23 08/23/24 Pregabalin [Lyrica] 150 mg PO BID 09/09/23 08/23/24 Ipratropium-Albuterol Nebulize 3 ml INHALATION RT-QID PRN 09/17/23 08/23/24 [Duoneb 0.5 mg-3 mg/3 ml Soln] Alendronate Sodium [Fosamax] 70 mg PO WEEKLY 08/23/24 08/23/24 Budesonide [Pulmicort] 1 mg INHALATION RT-BID 08/23/24 08/23/24 Budesonide-Formot 160-4.5 Mcg 2 puff INHALATION RT-BID PRN 08/23/24 08/23/24 [Symbicort 160-4.5 Mcg Inhaler] Famotidine [Pepcid] 20 mg PO BID PRN 08/23/24 08/23/24 Metoprolol Tartrate [Lopressor] 25 mg PO BID 08/23/24 08/23/24 Previous Rx's Medication Instructions Recorded Acetaminophen-Codeine 300-30mg 1 tab PO Q6H PRN #21 tablet 09/10/23 [Tylenol w/codeine #3] Nicotine 14Mg/24Hr Patch [Habitrol] 1 patch TRANSDERM DAILY #5 patch 08/28/24 Nystatin 100,000 Unit/ml Susp 500,000 unit PO QID #100 ml 08/28/24 [Mycostatin Oral Susp] guaiFENesin [Mucinex] 600 mg PO Q12H 15 Days #30 tab 08/28/24 predniSONE 10 mg PO DIRECTED #30 tab 08/28/24 Allergies Allergy/AdvReac Type Severity Reaction Status Date / Time cephalexin [From Keflex] Allergy Severe Swelling Verified 09/29/24 21:14 of lips Penicillins Allergy Severe Swelling Verified 09/29/24 21:14 lips shellfish derived [Shellfish] Allergy Severe Anaphylaxis Verified 09/29/24 21:14 Iodinated Contrast Media Allergy Rash/Hives Verified 09/29/24 21:14 pollen extracts Allergy Dyspnea Verified 09/29/24 21:14 Review of Systems ROS Statement: Those systems with pertinent positive or pertinent negative responses have been documented in the HPI. ROS Other: All systems not noted in ROS Statement are negative. Constitutional: Denies: fever, chills, weakness ENT: Reports: congestion. Denies: throat pain Respiratory: Reports: cough, dyspnea, wheezes. Denies: hemoptysis Cardiovascular: Reports: dyspnea on exertion. Denies: chest pain, palpitations, orthopnea, edema, syncope Gastrointestinal: Denies: abdominal pain, nausea, vomiting, melena, hematochezia Genitourinary: Denies: dysuria, hematuria Musculoskeletal: Denies: back pain Skin: Denies: rash Neurological: Denies: headache, weakness, numbness Past Medical History Past Medical History: Asthma, COPD, Diabetes Mellitus, Eye Disorder, Hyperlipidemia Additional Past Medical History / Comment(s): NIDDM type II(diet controlled following wt. loss), glaucoma bilaterally, tachycardia, AKIRA with CPAP not used the machine since she lost 80 lbs post gastric sleeve, USES O2 AT NITE ONLY. 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 HX COLITIS. History of rectal diverticulum. tachycardia, new medication metoprolol in 07/2024 History of Any Multi-Drug Resistant Organisms: None Reported Past Surgical History: Bariatric Surgery, Breast Surgery, Orthopedic Surgery Additional Past Surgical History / Comment(s): cyst removal under right breast, x 2. gastric sleeve Sx 2016., Colonoscopy 2020. Past Anesthesia/Blood Transfusion Reactions: No Reported Reaction, Motion Sickness Past Psychological History: Anxiety, Depression, Panic Disorder Smoking Status: Current every day smoker Past Alcohol Use History: None Reported Past Drug Use History: None Reported - Past Family History Mother History Unknown: Yes Family Medical History: Cancer, COPD Additional Family Medical History / Comment(s): Breast cancer. She also has a paternal aunt with breast cancer. Father History Unknown: Yes Family Medical History: COPD, Myocardial Infarction ([place]), Vascular Disorder Additional Family Medical History / Comment(s): Father at age 64yrs. General Exam General appearance: alert, in no apparent distress Head exam: Present: atraumatic, normocephalic Eye exam: Present: normal appearance. Absent: scleral icterus, conjunctival injection ENT exam: Present: normal oropharynx Neck exam: Present: normal inspection Respiratory exam: Present: wheezes, rhonchi. Absent: respiratory distress, rales, stridor, accessory muscle use, decreased breath sounds, prolonged expiratory Cardiovascular Exam: Present: regular rate, irregular rhythm, normal heart sounds. Absent: systolic murmur, diastolic murmur, rubs, gallop GI/Abdominal exam: Present: soft. Absent: distended, tenderness, guarding, rebound, rigid, mass Extremities exam: Present: normal inspection, normal capillary refill. Absent: pedal edema, calf tenderness Back exam: Present: normal inspection. Absent: CVA tenderness (R), CVA tenderness (L) Neurological exam: Present: alert Skin exam: Present: warm, dry, intact, normal color. Absent: rash Course Vital Signs 09/29/24 09/29/24 21:11 21:27 Temperature 98.3 F Pulse Rate 87 Respiratory 18 20 Rate Blood Pressure 140/87 O2 Sat by Pulse 93 L Oximetry EKG Findings - EKG Results: EKG: interpreted by ERMD, sinus rhythm (Rate 77 bpm) - Blocks, [place], Hypertrophy, ST Abn: AV and intraventricular conduction: right bundle branch block (fixed/intermittent, complete/incomplete) (Pleat) QRS axis and voltage: left axis deviation (-30 to -90) Medical Decision Making - Medical Decision Making Patient had chest x-ray that I interpreted as negative for acute infiltrate, pneumothorax, congestive heart failure. Disposition Referrals: Edilberto Sabillon MD [Primary Care Provider] - 1-2 days
--- NOTE | 2024-09-29 21:59 | XR ---
EXAMINATION TYPE: XR chest 2V DATE OF EXAM: 09/29/2024 9:54 PM COMPARISON: Chest radiographs from 08/24/2024. CLINICAL INDICATION: Female, 54 years old with history of difficulty breathing; [facility] TECHNIQUE: XR chest 2V Frontal and lateral views of the chest. FINDINGS: Lungs/Pleura: There is no evidence of pleural effusion, focal consolidation, or pneumothorax. Pulmonary vascularity: Unremarkable. Heart/mediastinum: Cardiomediastinal silhouette is unremarkable. Musculoskeletal: No acute osseous pathology. Vertebroplasty changes in the spine. Other findings: None IMPRESSION: No acute cardiopulmonary disease/process. [facility], , 09/29/2024 9:57 PM
[2024-09-29] MEDS: ALBUTEROL NEBULIZED 2.5 MG/3 ML INHALATION STA (22:37)
[2024-09-29 22:48] LABS: HCT 45.1 % (37.2-46.3); HGB 15.1 g/dL (12.0-15.0); MCH 30.7 pg (27.0-32.0); MCHC 33.5 g/dL (32.0-37.0); MCV 91.7 fL (80.0-97.0); Mean Platelet Volume 9.6 fL (9.5-12.2); Platelet Count 310 10*3/uL (140-440); RBC 4.92 10*6/uL (4.10-5.20); RDW 13.8 % (11.5-14.5); WBC 16.63 10*3/uL (4.50-10.00)
[2024-09-29 22:49] LABS: ALT 35 U/L (4-34); AST 28 U/L (14-36); African American GFR (CKD) >90 (>60 ml/min/1.73 sqM); Albumin 3.9 g/dL (3.5-5.0); Alkaline Phosphatase 87 U/L (38-126); Anion Gap 7 mmol/L; Blood Urea Nitrogen 25 mg/dL (7-17); Calcium 9.3 mg/dL (8.4-10.2); Carbon Dioxide 28 mmol/L (22-30); Chloride 106 mmol/L (98-107); Glucose 91 mg/dL (74-99); Non-African American GFR(CKD) >90 (>60 ml/min/1.73 sqM); Potassium 3.6 mmol/L (3.5-5.1); Sodium 141 mmol/L (137-145); Total Bilirubin 0.7 mg/dL (0.2-1.3); Total Protein 6.5 g/dL (6.3-8.2)
[2024-09-29 22:50] LABS: INR 0.9 (<1.2); Prothrombin Time 10.3 sec (10.0-12.5)
[2024-09-29 22:58] LABS: NT-Pro-B-Type Natriuretic Pept 300 pg/mL
[2024-09-29 23:19] LABS: Influenza A Not Detected (Not Detectd); Influenza B Not Detected (Not Detectd); RSV Not Detected (Not Detectd)
[2024-09-29 23:32] LABS: Partial Thromboplastin Time 21.7 sec (22.0-30.0)
[2024-09-30] MEDS: predniSONE 20 MG TAB PO STA (00:01)
[2024-09-30] MEDS: ALBUTEROL NEBULIZED 2.5 MG/3 ML INHALATION STA (01:23)
[2024-09-30 01:29] LABS: Eosinophils # (M) 0.33 k/uL (0-0.7); Lymphocytes # (M) 4.49 k/uL (1.0-4.8); Metamyelocytes # (M) 0.17 k/uL (0); Metamyelocytes % 1 %; Monocytes # (M) 1.16 k/uL (0-1.0); Neutrophils # (M) 10.64 k/uL (1.3-7.7); Neutrophils % (M) 64 %; Nucleated Red Blood Cells 0 /100 WBC (0-0); Total Cells Counted 200
[2024-09-30 01:31] LABS: RBC Morphology Normal
[2024-09-30] MEDS ORDERED: NALOXONE 0.4 MG/ML 1 ML VIAL IVP PRN (04:12)
[2024-09-30] MEDS: IPRATROPIUM-ALBUTEROL 3 ML NEB INHALATION SCH (08:13)
[2024-09-30] MEDS: FORMOTEROL FUMARATE 20 MCG/2 ML NEBU INHALATION SCH (08:13)
[2024-09-30] MEDS: BUDESONIDE 1 MG/2 ML NEBU INHALATION SCH (08:13)
[2024-09-30] MEDS ORDERED: predniSONE 20 MG TAB PO SCH (09:00)
[2024-09-30] MEDS: DOXYCYCLINE 100 MG TABLET PO SCH (10:06)
[2024-09-30] MEDS: methylPREDNISolone SOD SUCCI 125 MG/2 ML VIAL IV SCH (12:03)
--- NOTE | 2024-09-30 12:44 | P.CNPUL ---
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 She also was here in July 2024 with an acute influenza A infection. Presented here to the emergency room yesterday with a 1 week history of increasing shortness of breath, cough and con gestion. She was seen in outside clinic and was started on prednisone and doxycycline without much improvement. Chest x-ray reveals no acute cardiopulmonary process. Right count 16.3. Hemoglobin 15.1. Platelets 310. Sodium 141. Potassium 3.6. Bicarb 28. BUN 25. Creatinine 0.64. D-dimer 0. 26. proBNP 300. Troponin negative x 1. Viral screen negative for influenza A/B, RSV or COVID. She is seen today in follow-up on the regular medical floor. She is currently sitting up in bed. Awake and alert in no acute distress. Maintaining O2 saturations in the 90s on 2 L/min per nasal cannula. She is feeling a bit better today compared to yesterday. She has been afebrile. Hemodynamically stable. Review of Systems REVIEW OF SYSTEMS: CONSTITUTIONAL: Denies any recent significant weight loss or weight gain. EYES: Denies change in vision. EARS, NOSE, MOUTH, THROAT: Denies headaches, denies sore throat. CARDIOVASCULAR: Denies chest pain, palpitations or syncopal episodes. RESPIRATORY: Positive for shortness of breath, cough, congestion no hemoptysis. GASTROINTESTINAL: Denies change in appetite, denies abdominal pain GENITOURINARY: Denies hematuria, denies infections. MUSKULOSKELETAL: Denies pain, denies swelling. INTEGUMENTARY: Denies rash, denies eczema. NEUROLOGICAL: Denies recent memory loss, no recent seizure activity. PSYCHIATRIC: Denies anxiety, denies depression. HEMATOLOGIC/LYMPHATIC: Denies anemia, denies enlarged lymph nodes. Past Medical History Past Medical History: Asthma, COPD, Diabetes Mellitus, Eye Disorder, Hyperlipidemia Additional Past Medical History / Comment(s): NIDDM type II(diet controlled following wt. loss), glaucoma bilaterally, tachycardia, AKIRA with CPAP not used the machine since she lost 80 lbs post gastric sleeve, USES O2 AT NITE ONLY. 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 HX COLITIS. History of rectal diverticulum. tachycardia, new medication metoprolol in 07/2024 History of Any Multi-Drug Resistant Organisms: None Reported Past Surgical History: Bariatric Surgery, Breast Surgery, Orthopedic Surgery Additional Past Surgical History / Comment(s): cyst removal under right breast, x 2. gastric sleeve Sx 2016., Colonoscopy 2020. Past Anesthesia/Blood Transfusion Reactions: No Reported Reaction, Motion Sickness Past Psychological History: Anxiety, Depression, Panic Disorder Additional Psychological History / Comment(s): Pt resides with her spouse, daughter and grandson. She is normally independent. She uses no assistive device. She drives. She nebulizer and glucose monitor and oxygen prn at home. Smoking Status: Former smoker Past Alcohol Use History: None Reported Additional Past Alcohol Use History / Comment(s): Pt states she started smoking in 1986 -Smokes off and on. Past Drug Use History: None Reported - Past Family History Mother History Unknown: Yes Family Medical History: Cancer, COPD Additional Family Medical History / Comment(s): Breast cancer. She also has a paternal aunt with breast cancer. Father History Unknown: Yes Family Medical History: COPD, Myocardial Infarction ([place]), Vascular Disorder Additional Family Medical History / Comment(s): Father at age 64yrs. Medications and Allergies Home Medications Medication Instructions Recorded Confirmed Type Albuterol Sulfate [Ventolin HFA] 1 - 2 puff INHALATION RT-Q6H PRN 08/18/22 08/23/24 History Ipratropium/Albuter 20-100Mcg 1 puff INHALATION RT-QID PRN 08/18/22 08/23/24 History [Combivent Respimat 20-100Mcg Inhaler] Formoterol Fumarate [Perforomist] 20 mcg INHALATION RT-BID 04/17/23 08/23/24 History Cyclobenzaprine [Flexeril] 10 mg PO TID PRN 09/09/23 08/23/24 History Pregabalin [Lyrica] 150 mg PO BID 09/09/23 08/23/24 History Acetaminophen-Codeine 300-30mg 1 tab PO Q6H PRN #21 tablet 09/10/23 08/23/24 Rx [Tylenol w/codeine #3] Ipratropium-Albuterol Nebulize 3 ml INHALATION RT-QID PRN 09/17/23 08/23/24 History [Duoneb 0.5 mg-3 mg/3 ml Soln] Alendronate Sodium [Fosamax] 70 mg PO WEEKLY 08/23/24 08/23/24 History Budesonide [Pulmicort] 1 mg INHALATION RT-BID 08/23/24 08/23/24 History Budesonide-Formot 160-4.5 Mcg 2 puff INHALATION RT-BID PRN 08/23/24 08/23/24 History [Symbicort 160-4.5 Mcg Inhaler] Famotidine [Pepcid] 20 mg PO BID PRN 08/23/24 08/23/24 History Metoprolol Tartrate [Lopressor] 25 mg PO BID 08/23/24 08/23/24 History Nicotine 14Mg/24Hr Patch [Habitrol] 1 patch TRANSDERM DAILY #5 patch 08/28/24 Rx Nystatin 100,000 Unit/ml Susp 500,000 unit PO QID #100 ml 08/28/24 Rx [Mycostatin Oral Susp] guaiFENesin [Mucinex] 600 mg PO Q12H 15 Days #30 tab 08/28/24 Rx predniSONE 10 mg PO DIRECTED #30 tab 08/28/24 Rx Allergies Allergy/AdvReac Type Severity Reaction Status Date / Time cephalexin [From Keflex] Allergy Severe Swelling Verified 09/29/24 21:14 of lips Penicillins Allergy Severe Swelling Verified 09/29/24 21:14 lips shellfish derived [Shellfish] Allergy Severe Anaphylaxis Verified 09/29/24 21:14 Iodinated Contrast Media Allergy Rash/Hives Verified 09/29/24 21:14 pollen extracts Allergy Dyspnea Verified 09/29/24 21:14 Physical Exam Vitals: Vital Signs Temp Pulse Pulse Resp BP BP Pulse Ox 09/30/24 11:57 73 09/30/24 11:45 71 09/30/24 08:34 75 09/30/24 08:22 72 09/30/24 08:13 75 97 09/30/24 07:53 97.7 F 74 19 136/83 96 09/30/24 07:11 68 18 96 09/30/24 05:50 97.6 F 73 17 118/60 96 09/30/24 03:41 74 16 118/61 95 09/30/24 01:39 69 09/30/24 01:24 68 09/30/24 00:04 75 18 143/84 97 09/29/24 22:50 75 09/29/24 22:40 74 09/29/24 21:27 20 09/29/24 21:11 98.3 F 87 18 140/87 93 L Intake and Output 09/29/24 09/30/24 09/30/24 22:59 06:59 14:59 Other: # Voids 1 Weight 68.039 kg 68.039 kg GENERAL EXAM: Alert, pleasant 54-year-old female, on 2 L nasal cannula, comfortable in no apparent distress. HEAD: Normocephalic. EYES: Normal reaction of pupils, equal size. NOSE: Clear with pink turbinates. THROAT: No erythema or exudates. NECK: No masses, no JVD. CHEST: No chest wall deformity. LUNGS: Equal air entry with faint end expiratory wheeze. CVS: S1 and S2 normal with no audible murmur, regular rhythm. ABDOMEN: No hepatosplenomegaly, normal bowel sounds, no guarding or rigidity. SPINE: No scoliosis or deformity SKIN: No rashes CENTRAL NERVOUS SYSTEM: No focal deficits, tone is normal in all 4 extremities. EXTREMITIES: There is no peripheral edema. No clubbing, no cyanosis. Peripheral pulses are intact. Results - Laboratory Findings CBC and BMP: 09/29/24 22:25 09/29/24 22:25 PT/INR, D-dimer PT 10.3 sec (10.0-12.5) 09/29/24 22: INR 0.9 (<1.2) 09/29/24: D-Dimer 0.26 mg/L FEU (<0.60) 09/29/24 22:25 Abnormal lab findings: Abnormal Labs 09/29/24 09/29/24 09/29/24 22:25 22:25 22:25 WBC 16.63 H Hgb 15.1 H Immature Gran # 0.85 H Neutrophils # (Manual) 10.64 H Monocytes # (Manual) 1.16 H Metamyelocytes # (Man) 0.17 H APTT 21.7 L BUN 25 H ALT 35 H - Diagnostic Findings Chest x-ray: image reviewed Assessment and Plan Assessment: Acute hypoxemic respiratory failure secondary to an acute exacerbation of chronic obstructive pulmonary disease Chronic obstructive pulmonary disease with an FEV1 value of 53% of predicted 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, congenital defect Hyperlipidemia Gastroesophageal reflux disease History of anxiety/depression History of obesity, status post gastric sleeve placement History of obstructive sleep apnea not utilizing CPAP since significant weight loss Plan: The patient was seen and evaluated Chest x-ray, labs and medications reviewed Continue DuoNeb inhalations Continue Pulmicort and Perforomist inhalations Continue IV Solu-Medrol Heparin for DVT prophylaxis Educated regarding complete smoking cessation NicoDerm patch will be offered Titrate down the FiO2 as tolerated Increase her activity as tolerated We will continue to follow make further recommendations based on her clinical status I have personally seen and examined the patient, performed the documentation and the assessment and plan as written. Number of minutes spent on the visit: 20 Dictation was produced using [employer] dictation software. Please excuse any grammatical, word or spelling errors.. Time with Patient: Greater than 30
[2024-09-30] MEDS ORDERED: CYCLOBENZAPRINE 5 MG TAB PO PRN (13:18)
[2024-09-30] MEDS ORDERED: Acetaminophen-Codeine 300-30mg TAB PO PRN (13:18)
--- NOTE | 2024-09-30 13:25 | P.HPIM ---
History of Present Illness Patient is a 54-year-old female used to be chronic smoker quit smoking few weeks ago due to sneaking cigarettes came in with complaints of shortness of breath found to be in COPD exacerbation chest x-ray did not show any pneumonia. Patient was started on doxycycline systemic steroids and histamine treatments. Patient uses 2 L at home presently on 3 L of oxygen. Troponin is negative viral screen negative for influenza, RSV and COVID. Patient is feeling better compared to yesterday. REVIEW OF SYSTEMS: All other systems are negative except those mentioned in the HPI PHYSICAL EXAMINATION: GENERAL: The patient is alert and oriented x3, not in any acute distress. Well developed, well nourished. HEENT: Pupils are round and equally reacting to light. EOMI. No scleral icterus. No conjunctival pallor. Normocephalic, atraumatic. No pharyngeal erythema. No thyromegaly. CARDIOVASCULAR: S1 and S2 present. No murmurs, rubs, or gallops. PULMONARY: Significantly decreased air entry into bilateral lung dillon minimal wheezing ABDOMEN: Soft, nontender, nondistended, normoactive bowel sounds. No palpable organomegaly. MUSCULOSKELETAL: No joint swelling or deformity. EXTREMITIES: No cyanosis, clubbing, or pedal edema. NEUROLOGICAL: Gross neurological examination did not reveal any focal deficits. SKIN: No rashes. Assessment and plan -Acute on chronic hypoxic and hypercapnic respiratory failure: Secondary to COPD exacerbation. Patient will be continued on systemic steroids inpatient treatment clinical monitoring - COPD with FEV1 of 53% oxygen dependent - Hyperlipidemia - Gastroesophageal reflux disease, patient had a history of gastric sleeve surgery in the past -Obstructive sleep apnea uses CPAP machine at home - Depression DVT prophylaxis: Lovenox text Past Medical History Past Medical History: Asthma, COPD, Diabetes Mellitus, Eye Disorder, Hyperlipidemia Additional Past Medical History / Comment(s): NIDDM type II(diet controlled following wt. loss), glaucoma bilaterally, tachycardia, AKIRA with CPAP not used the machine since she lost 80 lbs post gastric sleeve, USES O2 AT NITE ONLY. 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 HX COLITIS. History of rectal diverticulum. tachycardia, new medication metoprolol in 07/2024 History of Any Multi-Drug Resistant Organisms: None Reported Past Surgical History: Bariatric Surgery, Breast Surgery, Orthopedic Surgery Additional Past Surgical History / Comment(s): cyst removal under right breast, x 2. gastric sleeve Sx 2016., Colonoscopy 2020. Past Anesthesia/Blood Transfusion Reactions: No Reported Reaction, Motion Sickness Past Psychological History: Anxiety, Depression, Panic Disorder Additional Psychological History / Comment(s): Pt resides with her spouse, daughter and grandson. She is normally independent. She uses no assistive device. She drives. She nebulizer and glucose monitor and oxygen prn at home. Smoking Status: Former smoker Past Alcohol Use History: None Reported Additional Past Alcohol Use History / Comment(s): Pt states she started smoking in 1986 -Smokes off and on. Past Drug Use History: None Reported - Past Family History Mother History Unknown: Yes Family Medical History: Cancer, COPD Additional Family Medical History / Comment(s): Breast cancer. She also has a paternal aunt with breast cancer. Father History Unknown: Yes Family Medical History: COPD, Myocardial Infarction (ND), Vascular Disorder Additional Family Medical History / Comment(s): Father at age 64yrs. Medications and Allergies Home Medications Medication Instructions Recorded Confirmed Type Albuterol Sulfate [Ventolin HFA] 2 puff INHALATION RT-QID PRN 08/18/22 09/30/24 History Cyclobenzaprine [Flexeril] 10 mg PO TID PRN 09/09/23 09/30/24 History Pregabalin [Lyrica] 150 mg PO HS 09/09/23 09/30/24 History Acetaminophen-Codeine 300-30mg 1 tab PO Q6H PRN #21 tablet 09/10/23 09/30/24 Rx [Tylenol w/codeine #3] Ipratropium-Albuterol Nebulize 3 ml INHALATION RT-QID PRN 09/17/23 09/30/24 History [Duoneb 0.5 mg-3 mg/3 ml Soln] Alendronate Sodium [Fosamax] 70 mg PO TH 08/23/24 09/30/24 History Budesonide-Formot 160-4.5 Mcg 2 puff INHALATION RT-BID 08/23/24 09/30/24 History [Symbicort 160-4.5 Mcg Inhaler] Famotidine [Pepcid] 20 mg PO HS 08/23/24 09/30/24 History Metoprolol Tartrate [Lopressor] 25 mg PO BID 08/23/24 09/30/24 History Albuterol Nebulized [Ventolin 2.5 mg INHALATION RT-QID PRN 09/30/24 09/30/24 History Nebulized] Atorvastatin [Lipitor] 40 mg PO HS 09/30/24 09/30/24 History Doxycycline Hyclate 100 mg PO Q12H 09/30/24 09/30/24 History Montelukast [Singulair] 10 mg PO HS 09/30/24 09/30/24 History Tiotropium 2.5 Mcg/Puff [Spiriva 2 puff INHALATION DIRECTED 09/30/24 09/30/24 History Respimat 2.5 Mcg] Allergies Allergy/AdvReac Type Severity Reaction Status Date / Time cephalexin [From Keflex] Allergy Severe Swelling Verified 09/30/24 12:58 of lips Penicillins Allergy Severe Swelling Verified 09/30/24 12:58 lips shellfish derived [Shellfish] Allergy Severe Anaphylaxis Verified 09/30/24 12:58 Iodinated Contrast Media Allergy Rash/Hives Verified 09/30/24 12:58 pollen extracts Allergy Dyspnea Verified 09/30/24 12:58 Physical Exam Vitals: Vital Signs Temp Pulse Pulse Resp BP BP Pulse Ox 09/30/24 12:57 98 F 72 18 119/67 96 09/30/24 11:57 73 09/30/24 11:45 71 09/30/24 08:34 75 09/30/24 08:22 72 09/30/24 08:13 75 97 09/30/24 07:53 97.7 F 74 19 136/83 96 09/30/24 07:11 68 18 96 09/30/24 05:50 97.6 F 73 17 118/60 96 09/30/24 03:41 74 16 118/61 95 09/30/24 01:39 69 09/30/24 01:24 68 09/30/24 00:04 75 18 143/84 97 09/29/24 22:50 75 09/29/24 22:40 74 09/29/24 21:27 20 09/29/24 21:11 98.3 F 87 18 140/87 93 L Intake and Output 09/29/24 09/30/24 09/30/24 22:59 06:59 14:59 Other: # Voids 1 Weight 68.039 kg 68.039 kg Results CBC & Chem 7: 09/29/24 22:25 09/29/24 22:25 Labs: Abnormal Lab Results - Last 24 Hours (Table) 09/29/24 09/29/24 09/29/24 Range/Units 22:25 22:25 22:25 WBC 16.63 H (4.50-10.00) 10*3/uL Hgb 15.1 H (12.0-15.0) g/dL Immature Gran # 0.85 H (0.00-0.04) 10*3/uL Neutrophils # (Manual) 10.64 H (1.3-7.7) k/uL Monocytes # (Manual) 1.16 H (0-1.0) k/uL Metamyelocytes # (Man) 0.17 H (0) k/uL APTT 21.7 L (22.0-30.0) sec BUN 25 H (7-17) mg/dL ALT 35 H (4-34) U/L
[2024-09-30] MEDS: METOPROLOL TARTRATE 25 MG TAB PO SCH (14:21)
[2024-09-30] MEDS ORDERED: SYMBICORT 160-4.5 MCG INHALER INHALATION SCH (20:00)
[2024-09-30] MEDS: PREGABALIN 75 MG CAP PO SCH (20:55)
[2024-09-30] MEDS: ATORVASTATIN 40 MG TAB PO SCH (20:55)
[2024-09-30] MEDS: FAMOTIDINE 20 MG TAB PO SCH (20:55)
[2024-09-30] MEDS: MONTELUKAST 10 MG TAB PO SCH (20:55)
[2024-09-30] MEDS: guaiFENesin-DM 100-10MG/5ML 10 ML CUP PO PRN (21:37)
[2024-10-01 07:35] VITALS: BP 143/78; RESP 18; TEMP 97.8
[2024-10-01] MEDS: NICOTINE 14MG/24HR PATCH TRANSDERM SCH (08:28)
[2024-10-01] MEDS: ENOXAPARIN 40 MG/0.4 ML SYRINGE SQ SCH (08:29)
--- NOTE | 2024-10-01 11:13 | P.DS ---
Providers Date of admission: 09/30/24 04:14 Attending physician: Shandra Monge Consults: 09/30/24 04:12 Consult Physician Routine Consulting Provider: Jb Bates Consult Reason/Comments: COPD exacerbation Do you want consulting provider notified?: Yes Primary care physician: Edilberto Sabillon [facility] Course: Patient is a 54-year-old female used to be chronic smoker quit smoking few weeks ago due to sneaking cigarettes came in with complaints of shortness of breath found to be in COPD exacerbation chest x-ray did not show any pneumonia. Patient was started on doxycycline systemic steroids and histamine treatments. Patient uses 2 L at home presently on 3 L of oxygen. Troponin is negative viral screen negative for influenza, RSV and COVID. Patient is feeling better compared to yesterday. 10/01/2024 Patient still has some wheeze on exam. Otherwise clinically doing well will be discharged today patient uses 2 L of oxygen saturating 98% on 2 L patient will continue doxycycline for 2 more days.I PHYSICAL EXAMINATION: GENERAL: The patient is alert and oriented x3, not in any acute distress. Well developed, well nourished. HEENT: Pupils are round and equally reacting to light. EOMI. No scleral icterus. No conjunctival pallor. Normocephalic, atraumatic. No pharyngeal erythema. No thyromegaly. CARDIOVASCULAR: S1 and S2 present. No murmurs, rubs, or gallops. PULMONARY: Significantly decreased air entry into bilateral lung dillon minimal wheezing ABDOMEN: Soft, nontender, nondistended, normoactive bowel sounds. No palpable organomegaly. MUSCULOSKELETAL: No joint swelling or deformity. EXTREMITIES: No cyanosis, clubbing, or pedal edema. NEUROLOGICAL: Gross neurological examination did not reveal any focal deficits. SKIN: No rashes. Assessment and plan -Acute on chronic hypoxic and hypercapnic respiratory failure: Secondary to COPD exacerbation. - COPD with FEV1 of 53% oxygen dependent - Hyperlipidemia - Gastroesophageal reflux disease, patient had a history of gastric sleeve surgery in the past -Obstructive sleep apnea uses CPAP machine at home - Depression Plan - Discharge Summary Discharge Rx Participant: No New Discharge Prescriptions: New guaiFENesin-DM 100-10MG/5ML [Robitussin DM] 150 ml PO TID PRN #150 ml PRN Reason: Cough predniSONE 10 mg PO DIRECTED #25 tab Continue Albuterol Sulfate [Ventolin HFA] 2 puff INHALATION RT-QID PRN PRN Reason: Shortness Of Breath Pregabalin [Lyrica] 150 mg PO HS Ipratropium-Albuterol Nebulize [Duoneb 0.5 mg-3 mg/3 ml Soln] 3 ml INHALATION RT-QID PRN PRN Reason: Shortness Of Breath Alendronate Sodium [Fosamax] 70 mg PO TH Atorvastatin [Lipitor] 40 mg PO HS Doxycycline Hyclate 100 mg PO Q12H Montelukast [Singulair] 10 mg PO HS Cyclobenzaprine [Flexeril] 10 mg PO TID PRN PRN Reason: Muscle Spasm Acetaminophen-Codeine 300-30mg [Tylenol w/codeine #3] 1 tab PO Q6H PRN #21 tablet PRN Reason: Pain Metoprolol Tartrate [Lopressor] 25 mg PO BID Famotidine [Pepcid] 20 mg PO HS Budesonide-Formot 160-4.5 Mcg [Symbicort 160-4.5 Mcg Inhaler] 2 puff INHALA TION RT-BID Albuterol Nebulized [Ventolin Nebulized] 2.5 mg INHALATION RT-QID PRN PRN Reason: Shortness Of Breath Tiotropium 2.5 Mcg/Puff [Spiriva Respimat 2.5 Mcg] 2 puff INHALATION DIR ECTED Discharge Medication List Albuterol Sulfate [Ventolin HFA] 2 puff INHALATION RT-QID PRN 08/18/22 [History] Cyclobenzaprine [Flexeril] 10 mg PO TID PRN 09/09/23 [History] Pregabalin [Lyrica] 150 mg PO HS 09/09/23 [History] Acetaminophen-Codeine 300-30mg [Tylenol w/codeine #3] 1 tab PO Q6H PRN #21 tablet 09/10/23 [Rx] Ipratropium-Albuterol Nebulize [Duoneb 0.5 mg-3 mg/3 ml Soln] 3 ml INHALATION RT-QID PRN 09/17/23 [History] Alendronate Sodium [Fosamax] 70 mg PO TH 08/23/24 [History] Budesonide-Formot 160-4.5 Mcg [Symbicort 160-4.5 Mcg Inhaler] 2 puff INHALATION RT-BID 08/23/24 [History] Famotidine [Pepcid] 20 mg PO HS 08/23/24 [History] Metoprolol Tartrate [Lopressor] 25 mg PO BID 08/23/24 [History] Albuterol Nebulized [Ventolin Nebulized] 2.5 mg INHALATION RT-QID PRN 09/30/24 [History] Atorvastatin [Lipitor] 40 mg PO HS 09/30/24 [History] Doxycycline Hyclate 100 mg PO Q12H 09/30/24 [History] Montelukast [Singulair] 10 mg PO HS 09/30/24 [History] Tiotropium 2.5 Mcg/Puff [Spiriva Respimat 2.5 Mcg] 2 puff INHALATION DIRECTED 09/30/24 [History] guaiFENesin-DM 100-10MG/5ML [Robitussin DM] 150 ml PO TID PRN #150 ml 10/01/24 [Rx] predniSONE 10 mg PO DIRECTED #25 tab 10/01/24 [Rx] Follow up Appointment(s)/Referral(s): Edilberto Sabillon MD [Primary Care Provider] - 3 Days Barrie Olmstead DO [Doctor of Osteopathic Medicine] - 1 Week Discharge Disposition: HOME SELF-CARE
[2024-10-01 11:49] VITALS: PULSE 62
--- NOTE | 2024-10-01 12:51 | P.PN ---
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 She also was here in July 2024 with an acute influenza A infection. Presented here to the emergency room yesterday with a 1 week history of increasing shortness of breath, cough and congestion. She was seen in outside clinic and was started on prednisone and doxycycline without much improvement. Chest x-ray reveals no acute cardiopulmonary process. Right count 16.3. Hemoglobin 15.1. Platelets 310. Sodium 141. Potassium 3.6. Bicarb 28. BUN 25. Creatinine 0.64. D-dimer 0.26. proBNP 300. Troponin negative x 1. Viral screen negative for influenza A/B, RSV or COVID. She is seen today in follow-up on the regular medical floor. She is currently sitting up in bed. Awake and alert in no acute distress. Maintaining O2 saturations in the 90s on 2 L/min per nasal cannula. She is feeling a bit better today compared to yesterday. She has been afebrile. Hemodynamically stable. The patient is seen today October 01, 2024 in follow-up on the regular medical floor. She is currently sitting up in bed. Awake and alert in no acute distress. Breathing better today compared to yesterday. She is maintaining O2 saturations in the high 90s on 2 L/min per nasal cannula. She has been afebrile. Hemodynamically stable. No new labs today. She remains on DuoNeb inhalations, Pulmicort and Perforomist inhalations, IV Solu-Medrol, Singulair. NicoDerm patch in place. She is on empiric antibiotics in the form of doxycycline. Objective - Vital Signs Vital signs: Vital Signs Temp 97.8 F 10/01/24 07:18 Pulse 62 10/01/24 11:49 Resp 18 10/01/24 07:18 BP 143/78 10/01/24 07:18 Pulse Ox 98 10/01/24 07:49 FiO2 Intake & Output 09/30/24 10/01/24 10/01/24 18:59 06:59 18:59 Intake Total 1320 540 Balance 1320 540 Intake: Oral 1320 540 Other: Voiding Method Toilet # Voids 2 4 - Exam GENERAL EXAM: Alert, active, 54-year-old female, on 2 L nasal cannula, comfortable in no apparent distress. HEAD: Normocephalic. EYES: Normal reaction of pupils, equal size. NOSE: Clear with pink turbinates. THROAT: No erythema or exudates. NECK: No masses, no JVD. CHEST: No chest wall deformity. LUNGS: Equal air entry with no crackles, wheeze, rhonchi or dullness. Diminished. CVS: S1 and S2 normal with no audible murmur, regular rhythm. ABDOMEN: No hepatosplenomegaly, normal bowel sounds, no guarding or rigidity. SPINE: No scoliosis or deformity SKIN: No rashes CENTRAL NERVOUS SYSTEM: No focal deficits, tone is normal in all 4 extremities. EXTREMITIES: There is no peripheral edema. No clubbing, no cyanosis. Peripheral pulses are intact. 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 Number of minutes spent on the visit: 10 Dictation was produced using [employer] dictation software. Please excuse any grammatical, word or spelling errors..
== END 2024-10-01 12:20 | disposition home or self-care (01) ==
LOC: EC 21:10 → 5NMEDONC 09-30 04:14 → 4SSUR 09-30 05:25 → 5NMEDONC 09-30 05:43
PROVIDERS: ADMIT Hospitalist; ATTEND Hospitalist
DX: J44.1 Chronic obstructive pulmonary disease with (acute) exacerbation (principal); J96.21 Acute and chronic respiratory failure with hypoxia; J96.22 Acute and chronic respiratory failure with hypercapnia; I45.10 Unspecified right bundle-branch block; Q25.5 Atresia of pulmonary artery; Q33.6 Congenital hypoplasia and dysplasia of lung; Z99.81 Dependence on supplemental oxygen; E78.5 Hyperlipidemia, unspecified; K21.9 Gastro-esophageal reflux disease without esophagitis; G47.33 Obstructive sleep apnea (adult) (pediatric); F17.200 Nicotine dependence, unspecified, uncomplicated; E66.9 Obesity, unspecified; Z68.29 Body mass index [BMI] 29.0-29.9, adult; F32.A Depression, unspecified; F41.9 Anxiety disorder, unspecified; Z79.51 Long term (current) use of inhaled steroids; Z79.83 Long term (current) use of bisphosphonates; Z79.899 Other long term (current) drug therapy; Z88.0 Allergy status to penicillin; Z88.1 Allergy status to other antibiotic agents; Z91.041 Radiographic dye allergy status; Z91.013 Allergy to seafood; Z91.048 Other nonmedicinal substance allergy status; Z11.52 Encounter for screening for COVID-19; Z11.59 Encounter for screening for other viral diseases; Z98.84 Bariatric surgery status
CPT/HCPCS: 96376 ×2; 96372; 96374; 99285; 36415; 94640 ×5; 94760 ×2; 93005; 85379; 83880; 80053; 83605; 84484; 85025; 85610; 85730; 84145; 87636; 71046; G0378 ×2; S4990; J1650; J7512; J2919 ×2

== ENCOUNTER → 2024-11-06 | Outpatient (CLI) | payer OTHER ==
[2024-11-06 15:06] LABS: Basophils # (A) 0.06 X 10*3/uL (0.00-0.10); Basophils % (A) 0.3 %; Eosinophils # (A) 0.01 X 10*3/uL (0.04-0.35); Eosinophils % (A) 0.1 %; HCT 46.8 % (37.2-46.3); HGB 14.7 g/dL (12.0-15.0); Lymphocytes # (A) 1.84 X 10*3/uL (0.90-5.00); Lymphocytes % (A) 10.5 %; MCH 30.7 pg (27.0-32.0); MCHC 31.4 g/dL (32.0-37.0); MCV 97.7 FL (80.0-97.0); Mean Platelet Volume 9.9 FL (9.5-12.2); Monocytes # (A) 1.02 X 10*3/uL (0.20-1.00); Monocytes % (A) 5.8 %; NRBC Per 100 WBC 0 X 10*3/uL (0.00-0.01); Neutrophils # (A) 14.34 X 10*3/uL (1.80-7.70); Neutrophils % (A) 81.8 %; Platelet Count 288 X 10*3/uL (140-440); RBC 4.79 X 10*6/uL (4.10-5.20); RDW 14.4 % (11.5-14.5); WBC 17.53 X 10*3/uL (4.50-10.00)
[2024-11-06 15:25] LABS: ALT 36 U/L (8-44); AST 17 U/L (13-35); Albumin/Globulin Ratio 2.11 Ratio (1.60-3.17); Alkaline Phosphatase 91 U/L (41-126); Blood Urea Nitrogen 15.4 mg/dL (9.0-27.0); Calcium 9.7 mg/dL (8.7-10.3); Carbon Dioxide 28.3 mmol/L (21.6-31.8); Chloride 105 mmol/L (96-109); Chol/HDL Ratio 2.28 Ratio; Globulin 1.9 g/dL (1.6-3.3); Glucose 100 mg/dL (70-110); LDL Cholesterol,Calculated 67.5 mg/dL (0.0-131.0); Potassium 4.3 mmol/L (3.5-5.5); Sodium 144 mmol/L (135-145); Total Bilirubin 0.9 mg/dL (0.3-1.2); Total Protein 5.9 g/dL (6.2-8.2)
== END | disposition home or self-care (01) ==
LOC: LABWHC1 11:10
PROVIDERS: ATTEND Family Medicine
DX: E78.5 Hyperlipidemia, unspecified (principal); E11.9 Type 2 diabetes mellitus without complications
CPT/HCPCS: 36415; 80053; 80061; 83036; 85025

== ENCOUNTER → 2024-11-14 | Outpatient (CLI) | payer OTHER ==
--- NOTE | 2024-11-14 17:04 | MM ---
Reason for Exam: Screening (asymptomatic). Last mammogram was performed 1 year(s) and 1 month(s) ago. Patient History: Menarche at age 13. First Full-Term at age 26. Postmenopausal. Hormonal Contraceptives for 11 years from age 15 until age 26. Paternal aunt had breast cancer at or over age 50. Mother had breast cancer, age 60. Risk Values: Miri 5 year model risk: 2.1%. NCI Lifetime model risk: 14.2%. Prior Study Comparison: 08/01/2021 Bilateral Screening Mammogram, [facility]. 09/29/2022 Bilateral MG 3D screening mammo w/cad, [facility]. 10/01/2023 Bilateral MG 3D screening mammo w/cad, [facility]. Tissue Density: There are scattered areas of fibroglandular density. Findings: Analyzed By CAD. There is no suspicious group of microcalcifications or new suspicious mass in either breast. Overall Assessment: Negative, BI-RAD 1 Management: Screening Mammogram of both breasts in 1 year. Patient should continue monthly self-breast exams. A clinical breast exam by your physician is recommended on an annual basis. This exam should not preclude additional follow-up of suspicious palpable abnormalities. Note on Miri scores and lifetime risk: 1. A Miri score greater than 3% is considered moderate risk. If this is the case, consider specialist referral to assess eligibility for a risk reducing agent. 2. If overall lifetime risk for the development of breast cancer is 20% or higher, the patient may qualify for future screening with alternating mammogram and breast MRI. [facility], , 11/14/2024 5:01 PM. Electronically signed and approved by: Christopher Anand M.D. Radiologist
[2024-11-15 01:40] LABS: Basophils # (A) 0.11 X 10*3/uL (0.00-0.10); Basophils % (A) 1.1 %; Eosinophils # (A) 0.21 X 10*3/uL (0.04-0.35); Eosinophils % (A) 2.1 %; HCT 48.2 % (37.2-46.3); HGB 14.7 g/dL (12.0-15.0); Lymphocytes # (A) 3.04 X 10*3/uL (0.90-5.00); Lymphocytes % (A) 30.7 %; MCH 30.6 pg (27.0-32.0); MCHC 30.5 g/dL (32.0-37.0); MCV 100.2 FL (80.0-97.0); Mean Platelet Volume 10.4 FL (9.5-12.2); Monocytes # (A) 1.09 X 10*3/uL (0.20-1.00); NRBC Per 100 WBC 0 X 10*3/uL (0.00-0.01); Neutrophils # (A) 5.31 X 10*3/uL (1.80-7.70); Neutrophils % (A) 53.6 %; Platelet Count 251 X 10*3/uL (140-440); RBC 4.81 X 10*6/uL (4.10-5.20); RDW 14.2 % (11.5-14.5); WBC 9.91 X 10*3/uL (4.50-10.00)
== END | disposition home or self-care (01) ==
LOC: RADMAMWWP 15:13
PROVIDERS: ATTEND Family Medicine
DX: Z12.31 Encounter for screening mammogram for malignant neoplasm of breast (principal); R92.323 Mammographic fibroglandular density, bilateral breasts; Z78.0 Asymptomatic menopausal state; Z80.3 Family history of malignant neoplasm of breast; Z92.0 Personal history of contraception
CPT/HCPCS: 77063; 77067; 85025